=== PATIENT | male | born 1960 | race Caucasian/White ===

== ENCOUNTER → 2018-04-10 10:50 | Outpatient (CLI) | payer MEDICARE, MEDICAID, OTHER, SELFPAY ==
--- NOTE | 2018-04-10 | DI.RAD.S_ITS ---
PROCEDURE: XR CERVICAL SPINE 2V OR 3V INDICATIONS: 58 year-old male with neck pain and numbness for one week after surgery. TECHNIQUE: 3 view(s) of the cervical spine were acquired. COMPARISON: [facility], , CERVICAL SPINE 4 OR 5 VIEWS, 09/12/2017, 10:02. [facility], , CERVICAL SPINE 2 OR 3 VIEWS, 04/01/2009, 14:02. FINDINGS: Bones: No fractures or dislocations to the T1 level. The lateral masses of C1 appear intact on the odontoid view. Patient is status post C3-C7 discectomies with interbody fusion, as well as bilateral C2-T1 posterior fixation. Bone grafts do not yet appear incorporated. C7-T1 spondylolisthesis does not appear significantly changed. Surgical hardware appears intact. No suspicious bony lesions. Soft tissues: No new prevertebral soft tissue swelling. Postoperative prominence of the soft tissues at the C2 level appears unchanged. IMPRESSION: 1. No acute bony injuries of the cervical spine to the T1 level. 2. C3-C7 interbody fusion bone grafts do not yet appear incorporated. C2-T1 posterior fixation hardware appears intact. Dictated by: Emmanuel Bautista M.D. on 04/10/2018 at 12:14 Approved by: Emmanuel Bautista M.D. on 04/10/2018 at 12:18
== END ==
PROVIDERS: PCP Family Medicine; Visit Provider Orthopaedic Surgery
DX: M54.2 Cervicalgia (principal); Z98.1 Arthrodesis status
CPT/HCPCS: 72040

== ENCOUNTER 2018-07-30 05:35 | Inpatient (IN) | payer MEDICARE, MEDICAID, SELFPAY ==
[2018-07-30] VITALS (38 sets, daily range): BP systolic 67–158; BP diastolic 45–103; PULSE 64–110; RESP 16–18; TEMP 36.3–37.1; O2SAT 93–100; BMI 29.8
[2018-07-30] MEDS: PROPOFOL 1,000 MG/100 ML VIAL 2.994 MG IV (06:26)
--- NOTE | 2018-07-30 06:26 | PM.PROC.1 ---
Procedures Date/Time Date of procedure: 07/30/18 Time of procedure: 06:10 Intubation Time out performed: No Sedative: other (Propofol and Rocuronium given by ER Doc. See ER notes for dosing) Paralytic: rocuronium Laryngoscope: fiber optic video scope Assist device used: LMA ET tube size: 7 ET tube uncuffed: Yes Tube secured depth (cm): 26 Tube secured location: lips Tube placement confirmation: visualized tube passing through cords, equal breath sounds bilaterally and confirmation by capnometry Patient tolerated procedure: well Intubation complications: none Additional comments: Called in to assist with a failed intubation. Pt has angioedema secondary to ARUN inhibitor. He was already sedated and paralysed when I arrived. Attempted with Glidescope and a LoPro 3 blade but it was not long enough. LoPro 4 was the correct size for this situation. I was able to visualize cords well and advance a 7.0 ETT through cords. B/L breathsounds confirmed by ER team and CXR confirms the ETT in correct position at 26 cm at the lip. Care transferred back to the ER team.
--- NOTE | 2018-07-30 06:30 | DI.RAD.S_ITS ---
PROCEDURE: XR CHEST 1V INDICATIONS: intubation TECHNIQUE: One view of the chest was acquired. COMPARISON: [facility], CHEST 1 VIEW, 03/02/2017, 20:32. [facility], CHEST 1 VIEW, 08/17/2016, 18:45. [facility], CHEST 1 VIEW, 08/18/2008, 7:53. FINDINGS: Surgical changes and devices: Endotracheal tube in normal position. Lungs and pleura: No pleural effusions or pneumothorax. Lungs are edematous. Mediastinum: Mediastinal contours appear normal. Heart size is moderately enlarged. Bones and chest wall: No suspicious bony lesions. Overlying soft tissues appear unremarkable. IMPRESSION: Previous inspiratory volume, pulmonary edema pattern, moderate global cardiomegaly. Acute congestive heart failure is the likely cause. Endotracheal tube appears in normal position. Dictated by: Aidan Mccann M.D. on 07/30/2018 at 8:19 Approved by: Aidan Mccann M.D. on 07/30/2018 at 8:20
--- NOTE | 2018-07-30 06:31 | ED.ALLEREA ---
HPI - Allergic Reaction General Chief complaint: Allergic Reaction Stated complaint: Allergic Reaction Time Seen by Provider: 07/30/18 05:35 Source: patient and EMS Mode of arrival: EMS Limitations: no limitations History of Present Illness HPI narrative: Patient is a is 58-year-old male who presents with tongue swelling. He has been on lisinopril for a long time for his blood pressure. This evening he had some steak with garlic powder on it which was new for him he denies anything else new or out of the ordinary. He woke up this morning with an enlarged tongue swelling and pain. He was given epi IM and Benadryl 50 mg along with albuterol by EMS. He has not had improvement. He has a muffled voice but is currently maintaining his own airway. MD complaint: allergic reaction Symptoms: tongue swelling and hoarseness Previous Allergic Reaction History: angioedema Related Data Home Medications Medication Instructions Recorded Confirmed omeprazole 20 mg PO Q DAY #0 05/24/11 acetaminophen [Tylenol Extra 1,000 mg PO Q6HP PRN #0 02/17/17 Strength] hydroxyzine HCl 25 mg #0 03/02/17 methocarbamol 500 mg PO #0 03/02/17 aspirin 325 mg PO QDAY #0 03/12/17 acetaminophen [Acephen] 325 mg R #0 05/25/17 famotidine 20 mg #0 05/25/17 ibuprofen 200 mg PO #0 05/25/17 Previous Rx's Medication Instructions Recorded lisinopril 5 mg PO Q DAY 14 Days #0 tab 08/17/16 prednisone 20 mg PO SEE INSTRUCTIONS #12 tab 05/25/17 Allergies Allergy/AdvReac Type Severity Reaction Status Date / Time citalopram [CITALOPRAM] Allergy Unknown SEIZURES Unverified 01/24/18 11:49 hydrocodone [HYDROCODONE] Allergy Unknown N/V Unverified 01/24/18 11:49 Review of Systems Review of Systems All systems reviewed & are unremarkable except as noted in HPI and below Constitutional Denies chills, Denies fatigue and Denies fever(s) Eyes Denies change in vision, Denies eye discharge, Denies irritation and Denies loss of vision ENT Ears, Nose, Mouth, and Throat: Reports as per HPI Cardiovascular Denies chest pain, Denies irregular heart rhythm, Denies lightheadedness, Denies palpitations and Denies orthopnea Respiratory Reports as per HPI Gastrointestinal Gastrointestinal: Denies abdominal pain, Denies change in bowel habits, Denies diarrhea, Denies nausea and Denies vomiting Musculoskeletal Denies back pain, Denies muscle weakness, Denies numbness and Denies tingling Integumentary/Breasts Denies pruritus, Denies erythema, Denies rash and Denies wounds Neurologic Denies loss of vision, Denies numbness and Denies tingling Endocrine Denies fatigue and Denies palpitations [facility] Medical History Hypertension (Acute) Exam Initial Vital Signs Initial Vital Signs: Vital Signs Temperature 97.4 F L 07/30/18 05:40 Pulse Rate 104 H 07/30/18 05:40 Respiratory Rate 18 07/30/18 05:40 Blood Pressure 158/100 H 07/30/18 05:40 Pulse Oximetry 100 07/30/18 05:40 Const General: ill appearing HENMT Mouth: drooling, muffled voice and tongue abnormal (Significantly enlarged, swelling inferiorly of tongue. Minimal swelling of neck.) Eyes General: appearance normal, both eyes and all related structures Eyelids: eyelids normal Neck Neck: normal visual inspection, No trachea midline, supple, No anterior neck swelling and No tracheal deviation Chest Chest: normal inspection of the chest Resp Effort & Inspection: normal respiratory effort, not able to speak in complete sentences, respiratory distress and no retractions Auscultation: clear to auscultation bilaterally, no rales and no rhonchi Cardio Rate: regular rate Heart Sounds: S1 normal and S2 normal GI Palpation: soft, No firm and No tender Skin General: No erythema, No mottling and No other (Hives) Rashes: no rashes Neuro General: alert, awake and oriented x3 Cranial Nerves: CN's II-XI intact bilaterally Procedures Intubation Time out performed: Yes sedative: other (propofol) Mg Given: 120 paralytic: Rocuronium (120) Laryngoscope: fiber optic video scope ET Tube Size: 7 Intubation Complications: difficult intubation and hypoxia Additional Comments: Difficulty intubation. Patient's oxygen sats went down to 50%. LMA was placed bag oxygen level came up. He was suction. 2nd attempt unable to passed and get to through vocal cords, but cords visualized full-time Anesthesia at bedside to intubate-please see anesthesia note for complete intubation. Course Orders Ordered: ED Orders 07/30/18 05:50 B Type Natriuretic Peptide Stat Complete Blood Count AUTO DIFF Stat Comprehensive Metabolic Panel Urgent Troponin I Urgent 07/30/18 06:30 XR chest 1V Stat Sodium Chloride (Normal Saline 0.9%) 1,000 mls @ 150 mls/hr IV CONT MIGUEL Discontinued Medications Famotidine (Pepcid) 20 mg in 50 mls @ 200 mls/hr IV NOW ONE Stop: 07/30/18 06:42 Methylprednisolone (Solu-Medrol 125 Mg Vial) 125 mg IV NOW ONE Stop: 07/30/18 06:29 Vital Signs - 8 hr 07/30/18 05:40 Temperature 97.4 F L Pulse Rate 104 H Respiratory Rate 18 Blood Pressure 158/100 H Pulse Oximetry 100 MDM - Allergic Reaction Differential Diagnosis Differential diagnosis: Likely anaphylaxis, allergic reaction and angioedema Lab Data Attestation: I reviewed the patient's lab results. Result diagrams: 07/30/18 05:50 07/30/18 05:50 Lab Results 07/30/18 07/30/18 Range/Units 05:50 05:50 WBC 12.7 H (4.5-11.0) X10^3/uL RBC 5.43 (4.5-5.9) X10^6/uL Hgb 17.9 H (13.5-17.5) g/dL Hct 52.2 (41-53) % MCV 96.1 (80-100) fL MCH 32.9 (26-34) PG MCHC 34.2 (30-36) % RDW 13.9 (11.6-14.8) % Plt Count 191 (150-400) X10^3/uL Neut % (Auto) 59.0 (50-75) % Lymph % (Auto) 27.1 (25-40) % [place] % (Auto) 9.3 (3-14) % Eos % (Auto) 4.2 H (2-4) % Baso % (Auto) 0.4 (0-2) % Neut # (Auto) 7500 H (2033-0080) /uL Sodium 143 (137-145) mmol/L Potassium 3.7 (3.4-5.1) mmol/L Chloride 105 (98-107) mmol/L Carbon Dioxide 25 (22-32) mmol/L BUN 16 (9-20) mg/dL Creatinine 1.10 (0.66-1.25) mg/dL Estimated GFR > 60.0 (>60) mL/min BUN/Creatinine Ratio 14.5 (6-22) Glucose 121 H (70-100) mg/dL Calcium 8.8 (8.4-10.2) mg/dL Total Bilirubin 0.7 (0.2-1.3) mg/dL AST 37 (17-59) IU/L ALT 33 (21-72) IU/L Alkaline Phosphatase 82 (38-126) U/L Troponin I < 0.012 (0.01-0.034) ng/mL B-Natriuretic Peptide < 100.0 (<100) Total Protein 7.2 (6.3-8.2) g/dL Albumin 4.3 (3.5-5.0) g/dL Globulin 2.9 (1.7-4.1) g/dL Albumin/Globulin Ratio 1.5 (1.0-2.8) MDM Narrative Medical decision making narrative: Patient has an obvious enlarged tongue he is awake alert and able to talk some. Started needing to spit up his own saliva. This was shortly after he arrived. No significant relief with epinephrine or utero. It is likely angioedema from his lisinopril. He has no rash or other symptoms to suggest anaphylaxis. I discussed with him intubation and the reason for intubation. He was agreeable to it he did give us his daughter's phone number. [place] [phone] (I have called and spoken with her) Anesthesia was called prior to any attempt to intubation. [place] scope used from anesthesia. A failed attempt at intubation, successful oxygenation with LMA. Anesthesia at bedside with successful intubation. Dr. Nava updated patient's symptoms and test results. Patient will be going to the ICU. Critical Care Time Critical Care Time: Yes Total Critical Care Time: 60 Attestation: The patient satisfied the definition of criticality in that they had a high probability of imminent deterioration of their condtion. Critical care time includes time spent at the bedside, plus where appropriate: gathering information from family, EMS, old records, caregivers; interpretation of test results; and time spent discussing patient with other physicians Discharge Plan Departure Patient Disposition: Admitted As Inpatient Clinical Impression: Angioedema
[2018-07-30 06:44] LABS: Add Manual Diff / Slide Review NO; Basophils Percent Auto 0.4 % (0-2); Eosinophils Percent Auto 4.2 % (2-4); Hematocrit 52.2 % (41-53); Hemoglobin 17.9 g/dL (13.5-17.5); Lymphocytes Percent Auto 27.1 % (25-40); Mean Corpuscular HGB Conc 34.2 % (30-36); Mean Corpuscular Hemoglobin 32.9 PG (26-34); Mean Corpuscular Volume 96.1 fL (80-100); Monocytes Percent Auto 9.3 % (3-14); Neutrophils Absolute Auto 7500 /uL (3000-5900); Platelet Count 191 X10^3/uL (150-400); Red Blood Cell Count 5.43 X10^6/uL (4.5-5.9); Red Cell Distribution Width 13.9 % (11.6-14.8); White Blood Cell Count 12.7 X10^3/uL (4.5-11.0)
[2018-07-30 06:47] LABS: Alanine Aminotransferase 33 IU/L (21-72); Albumin 4.3 g/dL (3.5-5.0); Albumin Globulin Ratio 1.5 (1.0-2.8); Alkaline Phosphatase 82 U/L (38-126); Aspartate Aminotransferase 37 IU/L (17-59); BUN Creatinine Ratio 14.5 (6-22); Bilirubin Total 0.7 mg/dL (0.2-1.3); Blood Urea Nitrogen 16 mg/dL (9-20); Calcium 8.8 mg/dL (8.4-10.2); Carbon Dioxide 25 mmol/L (22-32); Chloride 105 mmol/L (98-107); Estimated Glomerular Filt Rate > 60.0 mL/min (>60); Globulin 2.9 g/dL (1.7-4.1); Glucose 121 mg/dL (70-100); HEMOLYSIS 21 (0-50); Potassium 3.7 mmol/L (3.4-5.1); Sodium 143 mmol/L (137-145); Total Protein 7.2 g/dL (6.3-8.2)
--- NOTE | 2018-07-30 06:48 | RT ---
CALLED TO ED TO ASSIST W/ RAPID INTUBATION. ARRIVED IN ED AT APPROX. 0550. ASSISTED ED DR. AND ANESTHESIOLOGIST W/ INTUBATION VIA PREP, SX, BAG/MASK VENTILATION, AND PLACEMENT ON VENT. PT WAS A DIFFICULT INTUBATION. MULTIPLE ATTEMPTS MADE. ANESTHESIOLOGIST SUCCESSFULLY INTUBATED VIA GLYDESCOPE AT APPROX. 0619 W/ #7 ETT. PLACEMENT CONFIRMED VIA AUSCULTATION, ETCO2 DETECTOR (POSITIVE COLOR CHANGE NOTED) AND CXR. ETT APPEARS BELOW CLAVICLES AND ABOVE AMALIA, IN GOOD POSITION.
[2018-07-30 06:58] LABS: B Type Natriuretic Peptide < 100.0 (<100)
[2018-07-30 06:59] LABS: Troponin I < 0.012 ng/mL (0.01-0.034)
[2018-07-30] MEDS: PROPOFOL 200 MG/20 ML VIAL 50 MG IV (07:22)
[2018-07-30] MEDS: HYDROMORPHONE 0.5 MG INJ 1 MG IV (07:30)
[2018-07-30] MEDS: LORazepam 2 MG/ML SYRINGE IV (07:36)
--- NOTE | 2018-07-30 07:39 | PC.NURSE ---
patient arrived by EMS with severe tongue swelling, difficulty swallowing and talking. patient was given 125mg of solumedrol. patient had no improvement and the decision was made to rapid sequence intubate. patient was given 120mg of propofol and 120mg of rocuronium. patient was a difficult airway. anesthesia was called to assist. estee wang was called. anesthesia intubated. patient started on a propofol drip. lopez placed. provider aware.
[2018-07-30] MEDS: FAMOTIDINE 20 MG/50 ML PIGGYBACK 200 MG IV (07:50)
[2018-07-30] MEDS: SODIUM CHLORIDE 0.9% 250 ML 500 ML IV ×2 (09:15→09:35)
--- NOTE | 2018-07-30 09:19 | PC.NURSE ---
714- At this time I came to the bedside of the patient and took a bedside report from Bruna JIMENEZ and Frances Hill. They had charted the entirety of the patient's ER stay on paper on [employer]. At this time I took over and will chart what I do from 719-ICU transfer in the computer. Everything prior to 719 was written in paper chart packet for referencing. I suctioned the patient and immediately found him to be awake and restless, he is restrained however responds to my questions with appropriate head nods and is gagging due to tube and excessive secretions. He indicates he feels better after suctioning and I immediately began increasing his sedation titration as well as requested a bolus of sedation form MD Mccormack.
[2018-07-30 09:20] LABS: HCO3 ABG 27 mmol/L (23-27); Oxygen Saturation ABG 97 % (95-100); PCO2 ABG 52.2 mmHg (35-45); PO2 ABG 96 mmHg (80-105); TCO2 ABG 29 mmol/L (23-27); pH ABG 7.33 (7.35-7.45)
--- NOTE | 2018-07-30 09:23 | PC.NURSE ---
)[id number] Patient is more relaxed after administration of multiple medications and multiple suctionings, however is still awake and responds to my questions. Will continue to increase propofol sedation. Dr. Tipton.
--- NOTE | 2018-07-30 09:26 | PC.NURSE ---
0815 At this time I attempted to insert a 14fr OG tube with no success. Airway is still too swollen. and I&C TECH's aware.
[2018-07-30] MEDS: SODIUM CHLORIDE 0.9% 1,000 ML 150 ML IV (09:30)
[2018-07-30] MEDS: PROPOFOL 1,000 MG/100 ML VIAL 23.95 MG IV ×2 (10:04→13:47)
--- NOTE | 2018-07-30 10:08 | PC.NURSE ---
Addendum entered by Dileep Palacios R.N. 07/30/18 14:39: Pt restless and moving extremities in bed. Attempting to talk around ETT. Facial grimacing noted. Provided paper and pen for pt to write with. He relates that he would like the ETT out. Explained purpose of ETT and treatment plan. Pt nods head yes that he understands. He then writes, Knock me out. Titrated propofol to 50 mcg/kg/min without any change in level of sedation. Called to MD and reported findings. Orders received and ativan given with only minor benefit to pt. Titrated propofol to 60 mcg/kg/min. Will monitor. Original Note: Addendum entered by Dileep Palacios R.N. 07/30/18 11:59: Rec'd call from Elmira Larkin and obtained verbal telephone consent witnessed by BARBARA cShwab. Original Note: Called placed to Elmira Larkin listed as next of kin in chart to obtain verbal phone consent for blood product administration. Left message to return phone call to ICU.
--- NOTE | 2018-07-30 10:40 | PC.ADMIT ---
867 Chandra Mujica Admission Note: The patient,Elroy Larkin,58 y/o, was given written information regarding hospital policies, unit procedures and contact persons. Patient's smoking status: . Vital Signs - 8 hr 07/30/18 05:40 07/30/18 07:15 07/30/18 07:30 Temperature 97.4 F L 98 F Pulse Rate 104 H 102 H 110 H Respiratory Rate 18 18 18 Blood Pressure 158/100 H Blood Pressure [Right Arm] 145/97 H 136/100 H Pulse Oximetry 100 98 98 07/30/18 07:45 07/30/18 08:00 07/30/18 08:15 Temperature Pulse Rate 105 H 105 H 103 H Respiratory Rate 18 18 18 Blood Pressure Blood Pressure [Right Arm] 115/87 119/86 103/73 Pulse Oximetry 97 98 97 07/30/18 08:20 07/30/18 08:30 07/30/18 09:02 Temperature 98.6 F Pulse Rate 102 H 102 H 95 H Respiratory Rate 18 18 18 Blood Pressure 123/79 74/47 L Blood Pressure [Right Arm] 123/79 Pulse Oximetry 98 98 96 07/30/18 09:30 07/30/18 09:45 07/30/18 10:00 Temperature Pulse Rate 84 79 77 Respiratory Rate 18 18 18 Blood Pressure 67/45 L 77/52 L 91/65 Blood Pressure [Right Arm] Pulse Oximetry 97 97 98 07/30/18 10:15 Temperature Pulse Rate 75 Respiratory Rate 18 Blood Pressure 93/64 Blood Pressure [Right Arm] Pulse Oximetry 98 Rec'd pt from ED at 0830. Transferred from stretcher to bed with staff assist x4. RT at bedside. Intubated to vent and sedated to RASS -2 on propofol at 70 mcg/kg/min. Pt nodding head yes/no appropriately and moving all extremities. Follows commands but bringing hands up to ETT despite redirection and administration of propofol. Soft-wrist restraints applied and order obtained from . Oriented pt to room/environment and plan of care. Placed SR x3 and turned pt to right. Admission assessment is incomplete r/t pt being non verbal and no family/SO available to assist with answering questions at this time.
[2018-07-30] MEDS: ENOXAPARIN 40 MG/0.4 ML SYRINGE SUBCUT (13:47)
[2018-07-30] MEDS: LORazepam 2 MG/ML SYRINGE 0.5 MG IV ×3 (14:29→23:29)
--- NOTE | 2018-07-30 16:48 | P.HP_ITS ---
History of Present Illness Date Patient Seen: 07/30/18 Time Patient Seen: 06:41 Chief complaint: Allergic Reaction Narrative: Chief complaint I can not breathe History of present illness [age] years of age male on lisinopril ARUN-inhibitor for a number of years presents with tongue swelling and oropharyngeal swelling. The emergency room setting patient is intubated due to a angioedema state. Patient has no previous history of angioedema. No history of angioedema and other family members. Patient History Medical History Hypertension (Acute) Comment: Past medical history includes Hypertension on ARUN-inhibitor No history of angioedema Other past medical history unavailable at this time Patient is sedated unable to answer questions no family members or friends available at this time Family & Social History Social History: At the present time the social situation is unattainable. Patient unable to answer questions due to his lethargy attended state on a ventilator no family or friends in in attendance at this time Social habits such as drinking or smoking not known Family history Information is unavailable at this time. Patient has a unable to answer question due to his sedated state on the ventilator No family or friends in attendance at this time available. Meds Home Medications Medication Instructions Recorded Confirmed Type omeprazole 20 mg PO Q DAY #0 05/24/11 History lisinopril 5 mg PO Q DAY 14 Days #0 tab 08/17/16 Rx acetaminophen [Tylenol Extra 1,000 mg PO Q6HP PRN #0 02/17/17 History Strength] hydroxyzine HCl 25 mg #0 03/02/17 History methocarbamol 500 mg PO #0 03/02/17 History aspirin 325 mg PO QDAY #0 03/12/17 History acetaminophen [Acephen] 325 mg R #0 05/25/17 History famotidine 20 mg #0 05/25/17 History ibuprofen 200 mg PO #0 05/25/17 History prednisone 20 mg PO SEE INSTRUCTIONS #12 tab 05/25/17 Rx Allergies Allergy/AdvReac Type Severity Reaction Status Date / Time lisinopril Allergy Severe Swelling Verified 07/30/18 10:36 of Lip/Tongue/Throat citalopram [CITALOPRAM] Allergy Unknown SEIZURES Unverified 01/24/18 11:49 hydrocodone [HYDROCODONE] Allergy Unknown N/V Unverified 01/24/18 11:49 Review of Systems Review of Systems Review of system is unobtainable at this time to the patient's lethargy state and on availability of family members or medical record availability Exam Vital Signs (past 8 hours): - 07/30/18 09:02 07/30/18 09:30 07/30/18 09:45 Temperature Pulse Rate 95 H 84 79 Respiratory Rate 18 18 18 Blood Pressure 74/47 L 67/45 L 77/52 L Pulse Oximetry 96 97 97 07/30/18 10:00 07/30/18 10:15 07/30/18 12:08 Temperature 98.8 F Pulse Rate 77 75 70 Respiratory Rate 18 18 18 Blood Pressure 91/65 93/64 109/75 Pulse Oximetry 98 98 07/30/18 12:15 07/30/18 12:30 07/30/18 13:20 Temperature 97.7 F 97.7 F 97.7 F Pulse Rate 68 67 70 Respiratory Rate 18 18 16 Blood Pressure 102/66 102/66 98/63 Pulse Oximetry 97 97 07/30/18 13:42 07/30/18 13:45 07/30/18 13:58 Temperature 97.8 F 97.8 F 97.9 F Pulse Rate 71 73 80 Respiratory Rate 16 16 16 Blood Pressure 110/71 109/71 114/71 Pulse Oximetry 96 96 07/30/18 15:02 Temperature 98.1 F Pulse Rate 72 Respiratory Rate 16 Blood Pressure 104/65 Pulse Oximetry Fraction of Inspired Oxygen 35 Oxygen Delivery Method Mechanical Ventilation Oxygen Flow Rate 35 Narrative Exam Narrative: General appearance sedated difficult to arouse on ventilator support Skin no rashes or lesions evident no dermatitis no findings to suggest that this angioedema is histamine or mast cell mediated Respiratory fairly clear on auscultation at this time Cardiovascular regular rate rhythm no murmurs+3 pulses to extremities GI soft nontender positive bowel sounds no pedal splenomegaly no bruits Musculoskeletal range of motion appears normal passively no clubbing noted cannot assess motor strength at this time Neurologic unable to assess appropriately at this time Lymph nodes no lymphadenopathy to neck or axilla Objective Labs Result Diagrams: 07/30/18 05:50 07/30/18 05:50 Labs: Laboratory Results - last 24 hr 07/30/18 07/30/18 07/30/18 05:50 05:50 08:50 WBC 12.7 H RBC 5.43 Hgb 17.9 H Hct 52.2 MCV 96.1 MCH 32.9 MCHC 34.2 RDW 13.9 Plt Count 191 Neut % (Auto) 59.0 Lymph % (Auto) 27.1 [place] % (Auto) 9.3 Eos % (Auto) 4.2 H Baso % (Auto) 0.4 Neut # (Auto) 7500 H ABG pH 7.33 L ABG pCO2 52.2 H ABG pO2 96 ABG HCO3 27 ABG Total CO2 29 H ABG O2 Saturation 97 ABG Base Excess 1.0 FiO2 0.50 Sodium 143 Potassium 3.7 Chloride 105 Carbon Dioxide 25 BUN 16 Creatinine 1.10 Estimated GFR > 60.0 BUN/Creatinine Ratio 14.5 Glucose 121 H Calcium 8.8 Total Bilirubin 0.7 AST 37 ALT 33 Alkaline Phosphatase 82 Troponin I < 0.012 B-Natriuretic Peptide < 100.0 Total Protein 7.2 Albumin 4.3 Globulin 2.9 Albumin/Globulin Ratio 1.5 Nasal Screen MRSA (PCR) Blood Type 07/30/18 07/30/18 09:00 10:00 WBC RBC Hgb Hct MCV MCH MCHC RDW Plt Count Neut % (Auto) Lymph % (Auto) [place] % (Auto) Eos % (Auto) Baso % (Auto) Neut # (Auto) ABG pH ABG pCO2 ABG pO2 ABG HCO3 ABG Total CO2 ABG O2 Saturation ABG Base Excess FiO2 Sodium Potassium Chloride Carbon Dioxide BUN Creatinine Estimated GFR BUN/Creatinine Ratio Glucose Calcium Total Bilirubin AST ALT Alkaline Phosphatase Troponin I B-Natriuretic Peptide Total Protein Albumin Globulin Albumin/Globulin Ratio Nasal Screen MRSA (PCR) Negative for mrsa Blood Type O Positive Assessment & Plan Plan: Assessment/Plan Narrative: Bradykinin mediated acute angioedema Very likely this is ARUN-inhibitor related angioedema There is no previous history of angioedema. No dermatitis noted to suggest mast cell mediated angioedema 2 units of FFP have been requested and given to the patient which is most appropriate for this form of angioedema C1 concentrate is not available Continue the Solu-Medrol at 40 mg IV q.12 No further ARUN-inhibitor medication Time Spent With Patient Time with patient: Greater than 35 minutes (65 min) Quality VTE Deep Vein Thrombosis/Pulmonary Embolism Present on Admission: No
[2018-07-30] MEDS: PROPOFOL 1,000 MG/100 ML VIAL 35.924 MG IV ×3 (16:51→22:30)
--- NOTE | 2018-07-30 18:53 | PC.NURSE ---
fanny note pt has swollen neck and tongue is mildly swollen. Tongue is dry. Bite block in place with ETT.
[2018-07-30] MEDS: SODIUM CHLORIDE 0.9% 1,000 ML 100 ML IV (21:51)
[2018-07-31] VITALS (32 sets, daily range): BP systolic 107–139; BP diastolic 61–94; PULSE 39–66; RESP 15–49; TEMP 36.1–37.1; O2SAT 92–97
--- NOTE | 2018-07-31 | DI.RAD.S_ITS ---
PROCEDURE: XR CHEST 1V INDICATIONS: ANGIOEDEMA TECHNIQUE: One view of the chest was acquired. COMPARISON: [facility], , XR CHEST 1V, 07/30/2018, 5:49. [facility], CR, CHEST 1 VIEW, 03/02/2017, 20:32. [facility], CR, CHEST 1 VIEW, 08/17/2016, 18:45. FINDINGS: Surgical changes and devices: Endotracheal tube positioning normal Lungs and pleura: No pleural effusions or pneumothorax. Lungs are abnormal with chronic mild interstitial prominence and possible superimposed mild pulmonary edema. Mediastinum: Mediastinal contours appear normal. Heart size is at the upper limits of normal. Bones and chest wall: No suspicious bony lesions. Overlying soft tissues appear unremarkable. IMPRESSION: Endotracheal tube positioning normal, chronic interstitial prominence with superimposed mild pulmonary edema but no significant cardiomegaly is found. Dictated by: Aidan Mccann M.D. on 07/31/2018 at 8:16 Approved by: Aidan Mccann M.D. on 07/31/2018 at 8:17
[2018-07-31] MEDS: HYDROMORPHONE 0.5 MG INJ 1 MG IV ×4 (00:14→23:03)
--- NOTE | 2018-07-31 00:32 | PC.NURSE ---
Patient restless and awake at change of shift, propofol gtt increased to 70-75mcg/min and 0.5mg IV Ativan given for agitation, order was obtained for IV Dilaudid, waiting for pharmacy to verify, patient's S.O. 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 FIO2 35% TV 600 PEEP 5 RR 16, SpO2 >93% ETCO2 29-32, see assessment notes and vital trends also. 0030-1mg IV Dilaudid given for FLACC pain of 7, propofol gtt titrated back to 60mcg/min, will monitor closely. S.O. Sasha staying in room.
[2018-07-31] MEDS: PROPOFOL 1,000 MG/100 ML VIAL 32.931 MG IV ×2 (01:17→04:52)
[2018-07-31 05:03] LABS: Add Manual Diff / Slide Review NO; Basophils Percent Auto 0.1 % (0-2); Hematocrit 43.9 % (41-53); Hemoglobin 15.3 g/dL (13.5-17.5); Lymphocytes Percent Auto 5.8 % (25-40); Mean Corpuscular HGB Conc 34.9 % (30-36); Mean Corpuscular Hemoglobin 33.1 PG (26-34); Monocytes Percent Auto 3.1 % (3-14); Neutrophils Absolute Auto 9900 /uL (3000-5900); Platelet Count 138 X10^3/uL (150-400); Red Blood Cell Count 4.62 X10^6/uL (4.5-5.9); Red Cell Distribution Width 13.6 % (11.6-14.8); White Blood Cell Count 10.9 X10^3/uL (4.5-11.0)
[2018-07-31 05:13] LABS: Alanine Aminotransferase 27 IU/L (21-72); Albumin 3.4 g/dL (3.5-5.0); Albumin Globulin Ratio 1.4 (1.0-2.8); Alkaline Phosphatase 64 U/L (38-126); Aspartate Aminotransferase 19 IU/L (17-59); BUN Creatinine Ratio 17.8 (6-22); Bilirubin Total 0.5 mg/dL (0.2-1.3); Blood Urea Nitrogen 16 mg/dL (9-20); Calcium 8.3 mg/dL (8.4-10.2); Carbon Dioxide 24 mmol/L (22-32); Chloride 109 mmol/L (98-107); Estimated Glomerular Filt Rate > 60.0 mL/min (>60); Globulin 2.5 g/dL (1.7-4.1); Glucose 132 mg/dL (70-100); HEMOLYSIS < 15 (0-50); Potassium 4.1 mmol/L (3.4-5.1); Sodium 140 mmol/L (137-145); Total Protein 5.9 g/dL (6.3-8.2)
[2018-07-31] MEDS: SODIUM CHLORIDE 0.9% 1,000 ML 100 ML IV ×2 (06:58→18:22)
[2018-07-31] MEDS: PROPOFOL 1,000 MG/100 ML VIAL 35.924 MG IV ×2 (06:58→10:15)
[2018-07-31] MEDS: ENOXAPARIN 40 MG/0.4 ML SYRINGE SUBCUT (09:06)
--- NOTE | 2018-07-31 09:18 | P.PN_ITS ---
Subjective Date Patient Seen: 07/31/18 Time Patient Seen: 09:19 Interval history: FOLLOW UP OF ACUTE RESPIRATORY FAILURE DUE TO ANGIOEDEMA Patient seen at bedside. Swelling seems to be improving but slower than anticipated rate. Becomes very agitated when sedation is weaned off. No overnight events. Exam Vital Signs (past 8 hours): - 07/31/18 02:00 07/31/18 03:00 07/31/18 04:00 Temperature 97.7 F Pulse Rate 53 L 53 L 54 L Respiratory Rate 16 16 16 Blood Pressure 108/65 109/72 110/62 Pulse Oximetry 92 93 95 07/31/18 05:00 07/31/18 06:00 07/31/18 07:00 Temperature 97.8 F 97.8 F 97 F L Pulse Rate 52 L 53 L 51 L Respiratory Rate 16 16 16 Blood Pressure 110/62 107/64 112/61 Pulse Oximetry 92 92 94 07/31/18 08:00 Temperature Pulse Rate 50 L Respiratory Rate 16 Blood Pressure 114/73 Pulse Oximetry 95 Fraction of Inspired Oxygen 35 Oxygen Delivery Method Mechanical Ventilation Oxygen Flow Rate 0 Narrative Exam Narrative: Gen: RASS -4, withdraws to painful stimuli HEENT: Pupils constricted but responsive BL. ET in place at 26cm Neck: No LAD, supple CV: RRR, no murmurs, no gallops Resp: Bronchial breath sounds GI: +BS, soft, nontender MSK: Withdraws extremities to painful stimuli Skin: No edema or bruising Objective Labs Result Diagrams: 07/31/18 04:45 07/31/18 04:45 Labs: Laboratory Results - last 24 hr 07/30/18 07/30/18 07/30/18 08:50 09:00 10:00 WBC RBC Hgb Hct MCV MCH MCHC RDW Plt Count Neut % (Auto) Lymph % (Auto) [place] % (Auto) Eos % (Auto) Baso % (Auto) Neut # (Auto) ABG pH 7.33 L ABG pCO2 52.2 H ABG pO2 96 ABG HCO3 27 ABG Total CO2 29 H ABG O2 Saturation 97 ABG Base Excess 1.0 FiO2 0.50 Sodium Potassium Chloride Carbon Dioxide BUN Creatinine Estimated GFR BUN/Creatinine Ratio Glucose Calcium Total Bilirubin AST ALT Alkaline Phosphatase Total Protein Albumin Globulin Albumin/Globulin Ratio Nasal Screen MRSA (PCR) Negative for mrsa Blood Type O Positive 07/31/18 07/31/18 04:45 04:45 WBC 10.9 RBC 4.62 Hgb 15.3 Hct 43.9 MCV 95.0 MCH 33.1 MCHC 34.9 RDW 13.6 Plt Count 138 L Neut % (Auto) 91.0 H D Lymph % (Auto) 5.8 L D [place] % (Auto) 3.1 Eos % (Auto) 0.0 L Baso % (Auto) 0.1 Neut # (Auto) 9900 H ABG pH ABG pCO2 ABG pO2 ABG HCO3 ABG Total CO2 ABG O2 Saturation ABG Base Excess FiO2 Sodium 140 Potassium 4.1 Chloride 109 H Carbon Dioxide 24 BUN 16 Creatinine 0.90 Estimated GFR > 60.0 BUN/Creatinine Ratio 17.8 Glucose 132 H Calcium 8.3 L Total Bilirubin 0.5 AST 19 ALT 27 Alkaline Phosphatase 64 Total Protein 5.9 L Albumin 3.4 L Globulin 2.5 Albumin/Globulin Ratio 1.4 Nasal Screen MRSA (PCR) Blood Type Assessment & Plan Plan: Assessment/Plan Narrative: 1. Acute Respiratory failure - Due to Angioedema from ACEI use - Slower than anticipated improvement noted - CXR repeat this morning reviewed: Lungs are abnormal with chronic mild interstitial prominence and possible superimposed mild pulmonary edema. It seems to be improved when compared to read of previous CXR - Patient is currently on Solumedrol 40mg BID...Will switch to 125mg IV Q6H. Will also Add on Benadryl 50mg IV Q12H and Famotidine 20mg IV Daily - Will monitor for improvement. Cuff leak test tomorrow morning and possible CPAP trial 2. HTN - BP Stable at this time - Continue to monitor and hold BP medications as patient is on heavy sedatives - Will avoid ACEI/ARB in the future Time spent examining and providing care to this patient: 25min Quality VTE Deep Vein Thrombosis/Pulmonary Embolism Present on Admission: No
[2018-07-31] MEDS: FAMOTIDINE 20 MG/50 ML PIGGYBACK 200 MG IV (09:26)
[2018-07-31] MEDS: methylPREDNISolone 125 MG/2 ML VIAL IV ×3 (09:26→20:39)
[2018-07-31] MEDS: diphenhydrAMINE 50 MG/ML VIAL IV ×2 (10:11→20:39)
[2018-07-31] MEDS: LORazepam 2 MG/ML SYRINGE 0.5 MG IV (13:29)
--- NOTE | 2018-07-31 13:30 | PC.NURSE ---
Addendum entered by Dileep Palacios R.N. 07/31/18 14:16: HR at 1320 was noted to be NSR 60-70s. Original Note: Titrated propofol to 30 mcg/kg/min r/t deep sedation and HR 40s. Pt noted to be sitting bolt upright at 1320 and was able to dislodge his r hand IV despite being in soft wrist restraints. Provided reorientation which did provide some anxiety relief to pt but still attempting to put feet out of bed. Increased propofol and administered PRN ativan with good effect. VSS. Will monitor.
[2018-07-31] MEDS: PROPOFOL 1,000 MG/100 ML VIAL 23.95 MG IV (14:31)
--- NOTE | 2018-07-31 17:06 | CM.DANOTE ---
Discharge Planning/Care Management DCP: assessment: case received, EMR reviewed and discussed in Team Rounds. Pt is a 58 year old male who admitted yesterday to care of hospitalist team. PCP: Dr. Elroy iDxon Payer: [employer]/medicaid Dr. Sandoval reports pt remain at this time on ventilator support and has been slow to recover thus far. Wean attempt tomorrow. P: DCP team will be following to meet with pt and/or family and assist with d/c issues and options as these unfold CM Discharge Assessment Start: 07/31/18 17:03 Freq: Status: Active Protocol: Document 07/31/18 17:03 ITV (Rec: 07/31/18 17:06 ITV [id number]) Discharge Planning Assessment History Provided By Medical Record Comment pt currently on ventilator support. Comment pending Review Status In Process Next Review Type Continued Stay Review
[2018-07-31] MEDS: PROPOFOL 1,000 MG/100 ML VIAL 29.937 MG IV ×2 (17:50→20:48)
[2018-07-31] MEDS: DEXTROSE 5% WATER 500 ML 21 ML IV (18:32)
[2018-08-01] VITALS (21 sets, daily range): BP systolic 125–172; BP diastolic 77–105; PULSE 37–83; RESP 16–31; TEMP 35.9–37.6; O2SAT 92–96
[2018-08-01] MEDS: methylPREDNISolone 125 MG/2 ML VIAL IV ×4 (02:06→20:39)
[2018-08-01] MEDS: PROPOFOL 1,000 MG/100 ML VIAL 17.962 MG IV (02:06)
[2018-08-01] MEDS: SODIUM CHLORIDE 0.9% 1,000 ML 100 ML IV ×2 (03:55→13:54)
[2018-08-01] MEDS: HYDROMORPHONE 0.5 MG INJ 1 MG IV ×2 (04:25→19:00)
[2018-08-01 05:12] LABS: Add Manual Diff / Slide Review NO; Basophils Percent Auto 0.1 % (0-2); Hematocrit 49.6 % (41-53); Hemoglobin 16.9 g/dL (13.5-17.5); Lymphocytes Percent Auto 6.3 % (25-40); Mean Corpuscular HGB Conc 34.1 % (30-36); Mean Corpuscular Hemoglobin 32.9 PG (26-34); Mean Corpuscular Volume 96.5 fL (80-100); Monocytes Percent Auto 3.7 % (3-14); Neutrophils Absolute Auto 9700 /uL (3000-5900); Neutrophils Percent Auto 89.9 % (50-75); Platelet Count 127 X10^3/uL (150-400); Red Blood Cell Count 5.14 X10^6/uL (4.5-5.9); Red Cell Distribution Width 13.9 % (11.6-14.8); White Blood Cell Count 10.8 X10^3/uL (4.5-11.0)
[2018-08-01 05:19] LABS: Alanine Aminotransferase 27 IU/L (21-72); Albumin 3.7 g/dL (3.5-5.0); Albumin Globulin Ratio 1.3 (1.0-2.8); Alkaline Phosphatase 61 U/L (38-126); Aspartate Aminotransferase 28 IU/L (17-59); BUN Creatinine Ratio 22.5 (6-22); Bilirubin Total 0.6 mg/dL (0.2-1.3); Blood Urea Nitrogen 18 mg/dL (9-20); Calcium 8.5 mg/dL (8.4-10.2); Carbon Dioxide 18 mmol/L (22-32); Chloride 111 mmol/L (98-107); Estimated Glomerular Filt Rate > 60.0 mL/min (>60); Globulin 2.9 g/dL (1.7-4.1); Glucose 146 mg/dL (70-100); Sodium 141 mmol/L (137-145); Total Protein 6.6 g/dL (6.3-8.2)
[2018-08-01 05:29] LABS: HEMOLYSIS 63 (0-50)
[2018-08-01 05:30] LABS: Potassium 4.4 mmol/L (3.4-5.1)
[2018-08-01] MEDS: PROPOFOL 1,000 MG/100 ML VIAL 29.937 MG IV (05:44)
--- NOTE | 2018-08-01 06:00 | DI.RAD.S_ITS ---
PROCEDURE: XR CHEST 1V INDICATIONS: f/u to assess for improvement; intubated TECHNIQUE: One view of the chest was acquired. COMPARISON: [facility], CR, XR CHEST 1V, 07/31/2018, 7:59. FINDINGS: Surgical changes and devices: Endotracheal tube is seen with the tip projecting approximately 6 cm above the eliceo. Partially visualized cervical spine fixation hardware. Lungs and pleura: No pleural effusions or pneumothorax. Increasing retrocardiac consolidation since yesterday. There is also patchy bibasilar opacities, grossly unchanged and blunting of the left costophrenic angle.. Mediastinum: Mediastinal contours appear normal. Heart size is normal. Bones and chest wall: No suspicious bony lesions. Overlying soft tissues appear unremarkable. IMPRESSION: Worsening retrocardiac consolidation since yesterday. Please correlate clinically. Support equipment as above. Dictated by: Dileep Weaver M.D. on 08/01/2018 at 9:28 Approved by: Dileep Weaver M.D. on 08/01/2018 at 9:29
--- NOTE | 2018-08-01 06:11 | PC.NURSE ---
Patient remains on ventilator, FIO2 at 40% throughout night until 0400 when he sat up anxious with coughing episode attempting to reach for ETT, oral care and sx thick white sputum, propofol increased from 30mcg/min to 50mcg/min and 1mg IV Dilaudid when patient nodded head that he was in pain. FIO2 up to 50% to keep sats >92%. SB rate 40s, riding vent with RR rate of 16, BP stable, see vital trends. Tolerated CXR this am.
--- NOTE | 2018-08-01 08:28 | P.PN_ITS ---
Subjective Date Patient Seen: 08/01/18 Time Patient Seen: 08:23 Interval history: FOLLOW UP OF ACUTE RESPIRATORY FAILURE DUE TO ANGIOEDEMA Patient seen at bedside. His swelling has dramatically decreased. On ventilator , saturating well. No overnight events. Exam Vital Signs (past 8 hours): - 08/01/18 01:01 08/01/18 02:00 08/01/18 03:04 Temperature Pulse Rate 37 L 39 L 40 L Respiratory Rate 16 16 16 Blood Pressure 130/85 134/82 133/85 Pulse Oximetry 94 94 94 08/01/18 04:00 08/01/18 04:04 08/01/18 04:30 Temperature 97.2 F L Pulse Rate 40 L 45 L Respiratory Rate 16 16 Blood Pressure 136/85 Pulse Oximetry 95 92 08/01/18 05:11 08/01/18 06:07 Temperature Pulse Rate 43 L 41 L Respiratory Rate 16 16 Blood Pressure 127/88 125/77 Pulse Oximetry 92 93 Fraction of Inspired Oxygen 50 Oxygen Delivery Method Mechanical Ventilation Oxygen Flow Rate 94 Narrative Exam Narrative: Gen: RASS -3-4, withdraws to painful stimuli HEENT: Pupils constricted but responsive BL. ET in place at 26cm. Significantly decreased swelling in lips and tongue as opposed to day before Neck: No LAD, supple CV: RRR, no murmurs, no gallops Resp: Bronchial breath sounds GI: +BS, soft, nontender MSK: Withdraws extremities to painful stimuli Skin: No edema or bruising Objective Labs Result Diagrams: 08/01/18 04:49 08/01/18 04:49 Labs: Laboratory Results - last 24 hr 08/01/18 08/01/18 04:49 04:49 WBC 10.8 RBC 5.14 Hgb 16.9 Hct 49.6 MCV 96.5 MCH 32.9 MCHC 34.1 RDW 13.9 Plt Count 127 L Neut % (Auto) 89.9 H Lymph % (Auto) 6.3 L [place] % (Auto) 3.7 Eos % (Auto) 0.0 L Baso % (Auto) 0.1 Neut # (Auto) 9700 H Sodium 141 Potassium 4.4 Chloride 111 H Carbon Dioxide 18 L BUN 18 Creatinine 0.80 Estimated GFR > 60.0 BUN/Creatinine Ratio 22.5 H Glucose 146 H Calcium 8.5 Total Bilirubin 0.6 AST 28 ALT 27 Alkaline Phosphatase 61 Total Protein 6.6 Albumin 3.7 Globulin 2.9 Albumin/Globulin Ratio 1.3 Assessment & Plan Plan: Assessment/Plan Narrative: 1. Acute Respiratory failure - Due to Angioedema from ACEI use - Significant improvement since yesterday after increase of Steroids and addition of benadryl/Famotidine - CXR repeat this morning repeated, pending results - Will check cuff leak today and attempt VLT. If RSBI is <105, will attempt extubation with anasthesia at bedside - Will monitor for improvement. Cuff leak test tomorrow morning and possible CPAP trial 2. HTN - BP Stable at this time - Continue to monitor and hold BP medications as patient is on heavy sedatives - Will avoid ACEI/ARB in the future Time spent examining and providing care to this patient: 20min Quality VTE Deep Vein Thrombosis/Pulmonary Embolism Present on Admission: No
[2018-08-01] MEDS: ENOXAPARIN 40 MG/0.4 ML SYRINGE SUBCUT (08:39)
[2018-08-01] MEDS: diphenhydrAMINE 50 MG/ML VIAL IV ×2 (08:39→20:39)
[2018-08-01] MEDS: FAMOTIDINE 20 MG/50 ML PIGGYBACK 200 MG IV (08:41)
[2018-08-01] MEDS: PROPOFOL 1,000 MG/100 ML VIAL 23.95 MG IV (10:08)
--- NOTE | 2018-08-01 10:51 | PC.NURSE ---
Addendum entered by Dileep Palacios R.N. 08/01/18 13:31: Pt anxious, tremulous, c/o headache, having tactile disturbance. Pt states he has 2 man-sized shots of whiskey every day. Called to . Reported assessment findings. Orders received for CIWA protocol with IV ativan. Will monitor. Original Note: Addendum entered by Dileep Palacios R.N. 08/01/18 11:56: 1115- RT and anesthesia at bedside. Reviewed RSBI and toleration of CPAP trial. Deflated cuff with audible air flow around ETT. Pt awake and nodding head yes/no to simple questions. Dr. Nolasco verbally ordered to extubate. Pt tolerated well. Applied 5L NC for SPO2 93%. Strong cough with creamy, yellow sputum expectorated and suctioned from mouth. Pt is talking with clear speech and asking appropriate questions regarding situation. Reviewed situation, plan of care. Educated to call light and placed in easy reach. 1130- Called to Dr. Sandoval. Updated on extubation and assessment of pt. Reported elevated BP. Orders received for labetolol. 1155- Called to daughterElmira, per pt request and update given. Original Note: Propofol weaned to off and pt waking up and attempting to make needs known. Difficulty with maintaining eyes open but moving all extremities and nodding head yes/no to simple questions seemingly appropriately. RT to bedside. Performed cuff test. Noted airflow around ETT. Reinflated cuff and switched pt to CPAP trial at 1040. Pt frequently coughing and requiring ETT suction with moderate amount of creamy, yellow secretions. Reality orientation provided. Pt currently sitting up attempting to write with pen on paper. HR 78 RR 22 BP 150/90 SPO2 94% on CPAP 30% FIO2 PEEP 5.
--- NOTE | 2018-08-01 11:26 | CM.DPC ---
DCP Cont: Called and spoke to daughter, Elmira, for baseline information on patient. Patient is being extubated now. Stated that he is disabled, but independent at home. Stated that he does not go to see a doctor, unless he is very ill. Lives in [place] with daughter. P: DCP to continue to assess and follow closely for any resources that patient may need. Heidi Myles RN/Supervisor [employer]
[2018-08-01] MEDS: LABETALOL 20 MG/4 ML SYRINGE 10 MG IV ×2 (11:48→16:13)
[2018-08-01] MEDS: LORazepam 2 MG/ML SYRINGE 0.5 MG IV ×3 (13:11→19:00)
--- NOTE | 2018-08-01 15:15 | SLP.IPNOTE ---
Order received. TELECOMMUNICATIONS LINESWORKER coordinated with nursing. Swallow evaluation to be completed tomorrow due to patient's extubation today.
[2018-08-02] VITALS (9 sets, daily range): BP systolic 133–153; BP diastolic 78–94; PULSE 53–76; RESP 15–26; TEMP 36.4–37.1; O2SAT 92–95
[2018-08-02] MEDS: SODIUM CHLORIDE 0.9% 1,000 ML 100 ML IV (00:07)
[2018-08-02] MEDS: HYDROMORPHONE 0.5 MG INJ 1 MG IV ×2 (00:08→04:14)
[2018-08-02] MEDS: LORazepam 2 MG/ML SYRINGE IV ×2 (00:08→04:13)
[2018-08-02] MEDS: methylPREDNISolone 125 MG/2 ML VIAL IV ×3 (03:19→21:09)
[2018-08-02 05:18] LABS: Add Manual Diff / Slide Review NO; Basophils Percent Auto 0.1 % (0-2); Hematocrit 47.9 % (41-53); Hemoglobin 16.2 g/dL (13.5-17.5); Lymphocytes Percent Auto 2.7 % (25-40); Mean Corpuscular HGB Conc 33.9 % (30-36); Mean Corpuscular Hemoglobin 32.6 PG (26-34); Mean Corpuscular Volume 96.3 fL (80-100); Monocytes Percent Auto 3.9 % (3-14); Neutrophils Absolute Auto 12300 /uL (3000-5900); Neutrophils Percent Auto 93.3 % (50-75); Platelet Count 138 X10^3/uL (150-400); Red Blood Cell Count 4.97 X10^6/uL (4.5-5.9); Red Cell Distribution Width 13.5 % (11.6-14.8); White Blood Cell Count 13.2 X10^3/uL (4.5-11.0)
[2018-08-02 05:27] LABS: Alanine Aminotransferase 46 IU/L (21-72); Albumin 3.6 g/dL (3.5-5.0); Albumin Globulin Ratio 1.3 (1.0-2.8); Alkaline Phosphatase 61 U/L (38-126); Aspartate Aminotransferase 37 IU/L (17-59); BUN Creatinine Ratio 26.3 (6-22); Bilirubin Total 0.7 mg/dL (0.2-1.3); Blood Urea Nitrogen 21 mg/dL (9-20); Calcium 8.2 mg/dL (8.4-10.2); Carbon Dioxide 25 mmol/L (22-32); Chloride 111 mmol/L (98-107); Estimated Glomerular Filt Rate > 60.0 mL/min (>60); Globulin 2.7 g/dL (1.7-4.1); Glucose 131 mg/dL (70-100); HEMOLYSIS < 15 (0-50); Potassium 3.9 mmol/L (3.4-5.1); Sodium 146 mmol/L (137-145); Total Protein 6.3 g/dL (6.3-8.2)
--- NOTE | 2018-08-02 09:15 | CM.DPC ---
DCP Cont: Met with patient briefly, was extubated yesterday. Alert and oriented, conversive. Is working with speech therapy as well. Patient's goal is to return home when he is stable. P: DCP to continue to follow closely, and offer any resources that patient may need at discharge. Heidi Myles RN/Quotation Checker
--- NOTE | 2018-08-02 09:20 | PM.PN.1 ---
Subjective Date Patient Seen: 08/02/18 Time Patient Seen: 09:20 Interval history: FOLLOW UP OF ACUTE RESPIRATORY FAILURE DUE TO ANGIOEDEMA Patient seen at bedside. He was extubated yesterday with no complications. Currently on NC O2 with good saturations. Patient did become mildly agitated in the evening and stated he is a chronic alcohol drinker. He was placed on CIWA protocol and received 2 doses of ativan overnight. Still protecting his airways. This morning passed bedside swallow with the nurse and was able to ambulate with a walker. Exam Vital Signs (past 8 hours): - 08/02/18 04:00 08/02/18 07:25 08/02/18 07:32 Temperature 98.0 F 97.8 F Pulse Rate 70 58 L Respiratory Rate 26 H 18 Blood Pressure 138/84 150/88 H Pulse Oximetry 95 95 93 08/02/18 07:56 Temperature Pulse Rate Respiratory Rate Blood Pressure Pulse Oximetry 92 Fraction of Inspired Oxygen 50 Oxygen Delivery Method Room Air Oxygen Flow Rate 0 Narrative Exam Narrative: Gen: NAD, AAOx3 HEENT: PERRLA BL. No swelling noted Neck: No LAD, supple CV: RRR, no murmurs, no gallops Resp: CTA BL, no wheezing GI: +BS, soft, nontender MSK: Moves all extremities BL Back: Vertical cervical incision scar, healed Skin: No edema. R anticubital bruising Objective Labs Result Diagrams: 08/02/18 04:42 08/02/18 04:42 Labs: Laboratory Results - last 24 hr 08/02/18 08/02/18 04:42 04:42 WBC 13.2 H RBC 4.97 Hgb 16.2 Hct 47.9 MCV 96.3 MCH 32.6 MCHC 33.9 RDW 13.5 Plt Count 138 L Neut % (Auto) 93.3 H Lymph % (Auto) 2.7 L [place] % (Auto) 3.9 Eos % (Auto) 0.0 L Baso % (Auto) 0.1 Neut # (Auto) 82843 H Sodium 146 H Potassium 3.9 Chloride 111 H Carbon Dioxide 25 BUN 21 H Creatinine 0.80 Estimated GFR > 60.0 BUN/Creatinine Ratio 26.3 H Glucose 131 H Calcium 8.2 L Total Bilirubin 0.7 AST 37 ALT 46 Alkaline Phosphatase 61 Total Protein 6.3 Albumin 3.6 Globulin 2.7 Albumin/Globulin Ratio 1.3 Assessment & Plan Plan: Assessment/Plan Narrative: 1. Acute Respiratory failure - Due to Angioedema from ACEI use - Resolving - Patient is now extubated - Will start tapering steroids - CXR showed retrocardiac consolidation but no clinical features of PNA (WBC increased from steroids). Continue to monitor for now - PT/OT/Speech pending 2. HTN - BP was slightly elevated and patient received labetalol - Will start on amlodipine 10mg Daily - Will avoid ACEI/ARB in the future 3. Alcohol abuse with withdrawals - patient states he drinks daily for chronic pain control - Placed on CIWA protocol, doing well 4. Hypernatremia - Na 146 - Will stop IVF and repeat Na levels in 6 hrs Time spent examining and providing care to this patient: 20min Quality VTE Deep Vein Thrombosis/Pulmonary Embolism Present on Admission: No
[2018-08-02] MEDS: ENOXAPARIN 40 MG/0.4 ML SYRINGE SUBCUT (10:42)
[2018-08-02] MEDS: FAMOTIDINE 20 MG/50 ML PIGGYBACK 200 MG IV (10:42)
[2018-08-02] MEDS: AMLODIPINE 5 MG TABLET 10 MG PO (10:43)
[2018-08-02] MEDS: diphenhydrAMINE 50 MG/ML VIAL IV ×2 (10:45→21:09)
--- NOTE | 2018-08-02 10:51 | ST.IPIE ---
Care Team Visit Care Team Role Provider Type Elroy Dixon MD Family Provider Non-Staff Primary Care Provider Specialty: Family Practice Address: [address] , [place], [address] Email: Mayra Mccormack DO Emergency Provider Physician Specialty: Emergency Medicine Address: [address] [place] [address], [id number] Email: Kin Nava MD Admit Provider Physician Attending Provider Specialty: Internal Medicine Address: [address] [place] [address], [id number] Email: Current Diagnoses Angioneurotic edema, initial encounter (07/30/18) Past Medical History (Last Updated 07/30/18 @ 07:17 by Mayra Mccormack DO) Hypertension (Acute Medical) ST IP Initial Evaulation Report [employer]PER[employer] Clinical Swallow Evaluation Start: 08/02/18 10:41 Freq: Status: Active Protocol: Document 08/02/18 10:41 [facility] (Rec: 08/02/18 10:51 [facility] [id number]) Clinical Swallow Evaluation Session Time Visit Start Time 10:15 Visit Stop Time 10:35 Total Visit Minutes [address] Sandoval Reason for Referral Angioedema; Extubation Setting Assessment Location Acute Care Visit Type Note Type Initial Evaluation Next Note Type Next Note Type Discharge Summary Patient Information Identification Type Name Date of Other History Patient is a 58 year old male who came to [facility] with tongue swelling and oropharyngela swelling. He was intubated in the emergency room due to angioedema state. He had no previous history of angioedema. He was intubated on 07/30/18 and extubated on 08/01/18. A clinical swallow evaluation was requested by Dr Sandoval to evaluate the safety and function of his swallowing following extubation. Subjective Observations Patient awake and alert, sitting up in chair. Very hungry and eager to begin eating. Passed nursing swallow screen. Clinical swallow evaluation requested by . Alert and oriented to time, place, situation. Indicated mild pain in his mouth, but resolved with eating and drinking. Evaluation Liquids Trialed Thin Solids Trialed Puree Dysphagia Advanced Regular Administration Type Cup Single Sip Straw Self-Feeding Oral Impairment WNL Oral Strategies Upright at 90 degrees Oral Phase Comments No oral impairment Pharyngeal Impairment WNL Pharyngeal Phase Comments No pharyngeal impairment Findings Dysphagia Type No dysphagia Rehabilitation Potential Excellent Impressions No oropharyngeal dysphagia. Patient independent in all PO trials. Able to safely tolerate thin liquids via cup and straw (single and consecutive sips), with puree textures, dysphagia advanced textures and soft sandwich. No oral residue, no difficulty with mastication, no difficulty with swallow initiation, no cough or throat clear, no change in vocal residue. Patient reported that he had ACDF surgery last year , but had no difficulties swallowing after the surgery. No overt s/s of aspiration or dysphagia. No impairment observed. RECOMMEND: Upgrade diet from NPO to thin liquids with regular textures. Medication to be administered as tolerated. Position upright for all intake. No further speech therapy warranted at this time. Please reconsult if needed. D/C patient. Diet Recommendations Liquids Order Thin Diet Order Regular Medication Recommendations As Tolerated Additional Dietary Needs Encourage to Self-Feed Aspiration Precautions Recommended Precautions Upright at 90 Degrees Frequent Rest Periods Small Bites/Sips Treatment Plan Placement Recommendations after Home Discharge Appropriate for Therapy No Therapy Recommendations No therapy needed at this time . Please reconsult if warranted. [employer]PER[employer] Follow Up As needed.
--- NOTE | 2018-08-02 14:28 | PC.NURSE ---
PT MADE FLOOR CARE NO TELE AND SALINE LOCKED POST SWALLOW EVAL THAT HE PASSED WITHOUT DIFFICULTY- AMBULATED AND SHOWERED - REMAINS WEAK BUT IMPROVING - NO LORAZ GIVEN THIS SHIFT AND KIM REMOVED THIS SHIFT
--- NOTE | 2018-08-02 14:54 | OT.IP.EVAL ---
Current Diagnoses Angioneurotic edema, initial encounter (07/30/18) Past Medical History (Last Updated 07/30/18 @ 07:17 by Mayra Mccormack DO) Hypertension (Acute) Occupational Therapy Inpatient Evaluation/Re-Eval M1 PT/OT-IP Prior Functional Status Start: 08/02/18 15:55 Freq: NEEDED Status: Active Protocol: Document 08/02/18 14:54 PJM (Rec: 08/02/18 16:19 PJM [id number]) Medical Review Prior Functional Status Medical History Reviewed Yes Diet/Fluid Consistency Regular Communication WNL Mobility and Gait Pt ambulated without a device. Activities of Daily Living and IADL's Pt lives alone and is independent with all self care , IADLS except driving. Pt states he prefers not to drive due to chronic lightheadedness for past 2 yrs. Prior Functional Level (Other details) Pt states friends or neighbors provide transport PRN. Social History Living Arrangements House Number of Floors (Floors) Two Floors Number of Stairs To Enter/Railing? 8 Home Environment High Toilet Tub/Shower Home Equipment Hand Held Shower Grab Bars Near Toilet Grab Bars In Shower Employment Status Unemployed Additional Social History Comment Pt states he is on disability for chronic neck and back problems. He has a FWW, cane , tub bench from caring for his father, but was not using any of these items. Pt takes bottom of tub bath. Laundry is located in lower level. Pt states he has girlfriend who lives 120 miles away and he sees her on some weekends. M2 OT-IP Current Condition Start: 08/02/18 15:55 Freq: Status: Active Protocol: Document 08/02/18 14:54 PJM (Rec: 08/02/18 16:19 PJM [id number]) Occupational Therapy Current Condition Current Condition Evaluation Date 08/02/18 Treatment Diagnosis decreased mobility/self care s /p intubation for allergic reaction to med Diagnosis Onset Date 07/30/18 Post Operative Precautions Other Precautions fall risk, mildly impulsive M3 OT- IP Subjective and Pain Start: 08/02/18 15:55 Freq: Status: Active Protocol: Document 08/02/18 14:54 PJM (Rec: 08/02/18 16:19 PJM [id number]) OT- Subjective Occupational Therapy Visit Type Type Initial Evaluation Visit Start Time 14:15 Visit Stop Time 14:54 Total Visit Minutes 39 Occupational Therapy Visit Comments Patient Comments I can get my neighbors sot help me when I go home. Patient/Caregiver Goals to go home and be independent again OT Pain Assessment Pain When Pain Assessed After Treatment Pain Present Pain Present Pain Reported Location Generalized Intensity 6 Scale Used low back and neck pain Description Chronic M4 OT- IP ADL's Start: 08/02/18 15:55 Freq: Status: Active Protocol: Document 08/02/18 14:54 PJ (Rec: 08/02/18 16:19 [facility] [id number]) OT [id number] General Evaluation Self-Feeding Ability Independent OT ADL-Grooming General Evaluation Grooming Ability Independent Comments OT Grooming Comments standing at sink to wash hands OT ADL-Oral Care Comments Oral Care Comments did not occur this session; pt completed prior to session OT ADL-Dressing General Eval Upper Body Dressing Ability Independent Lower Body Dressing Ability Independent Areas Needing Assistance Underpants/Brief Socks OT ADL-Toileting General Evaluation Toileting Ability Independent OT ADL-Bathing Bathing Type Bathing Type Shower General Evaluation Bathing Ability Standby Assistance Areas Needing Assistance Retrieving/Setting Up Items Devices Bathing Equipment Shower Chair without Arms Comments OT Bathing Comments Per RN, pt was indep bathing self once seated on shower seat in walk in shower stall. Educated pt to use tub seat at home until endurance improves . He normally takes bottom of tub bath. M5 OT- IP IADL's Start: 08/02/18 15:55 Freq: Status: Active Protocol: Document 08/02/18 14:54 PJM (Rec: 08/02/18 16:19 [facility] [id number]) OT-Instrumental Activities of Daily Living Deficits IADL Deficits Identified Deficits Home Safety Awareness Awareness of Need for Assistance at Home Decreased Awareness Ability to Problem Solve Emergency Able to Problem Solve Situations Medication Management Medication Management No Deficits Identified Money Management Money Management No Deficits Identified Meal Preparation Meal Preparation Comments Pt has decreased activity tolerance at present and recommend assist with grocery shopping. 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 Pt states friends can assist PRN. Driving Driving Caregiver Provides Assist Driving Comments pt usually has friends assist with driving M6 OT- IP Functional Cognition Start: 08/02/18 15:55 Freq: Status: Active Protocol: Document 08/02/18 14:54 PJM (Rec: 08/02/18 16:19 PJ [id number]) Cognitive Factors Limiting Selfcare Function Cognitive Ability Level of Alertness Alert Patient Orientation Name Age Birthday Month Date Year Day of Week Place Situation Attention Span Ability Capable of Focused Attention Capable of Sustained Attention Ability to Follow Commands Able to Follow One Step Commands Safety Awareness Underestimates Need for Assistance Problem Solving Ability Needs Assist to Identify Solutions Cognitive Comments Cognitive Assessment Comments Pt appears to be at cognitive baseline but does underestimate need for assist with associate spa director at home while he regains endurance. OT- Vision and Hearing OT- Hearing Assessment OT- Hearing Assessment WFL OT- Vision Assessment Vision Assessment Comments Pt does not wear glasses. M7 OT- IP Mobility and Balance Start: 08/02/18 15:55 Freq: Status: Active Protocol: Document 08/02/18 14:54 PJM (Rec: 08/02/18 16:19 PJ [id number]) OT- Bed Mobility Assessment Rolling Type of Rolling Roll to Left Level of Assistance Independent Supine to Sit Supine to Sit Assist Independent Sit to Supine Sit to Supine Assist Independent Scooting Scooting to Edge of Bed Independent OT-Transfer Assessment Sit to and From Stand Sit to and from Stand Standby Assistance Transfers Transfer Ability Standby Assistance Technique Transfer Destination Bed Toilet Transfer Technique Stand Step Pivot Devices Transfer Assistive Devices None OT- Gait Assessment Gait Gait Assistance Required: Standby Assistance Distance (Feet) 30 Assistive Devices Assistive Device None Comments Gait Ability Comments Pt up out of bed and ambulated to bathroom with SBA without a device. Mildly unsteady on turns but no loss of balance noted. Tends to move quickly. OT- Balance Assessment Sitting Balance and Reactions Static Sitting Balance Ability Good Dynamic Sitting Balance Ability Good Standing Balance and Reactions Static Standing Balance Ability Good Dynamic Standing Balance Ability Good M8 OT- IP Objective Assessments Start: 08/02/18 15:55 Freq: Status: Active Protocol: Document 08/02/18 14:54 PJM (Rec: 08/02/18 16:19 [facility] [id number]) OT Gross Range of Motion Upper Extremity Range of Motion Assessment Within Functional Limits OT Strength Upper Extremity Strength Assessment Within Functional Limits Hand Media Traffic Manager Strength Hand Dominance Right OT- Coordination Assessment Comments Coordination Comments BUE WFL OT-Muscle Tone Assessment Muscle Tone WNL Yes OT Sensation Assessment Comments Summary Comments Pt denies BUE sensory deficits . Edema Edema Present Edema Comments B ankles/feet M9 OT- IP Assessment and Plan Start: 08/02/18 15:55 Freq: Status: Active Protocol: Document 08/02/18 14:54 PJM (Rec: 08/02/18 16:19 PJM [id number]) OT Summary Assessment and Plan Potential Rehabilitation Potential Excellent Analytic Complexity at Evaluation Low Summary Progress Towards Goals Safe For Discharge Goals Met Assessment Summary Low complexity OT assessment completed. Pt is SBA with functional mobility in room with PT consult still pending. Pt independent with self care and has necessary bathroom safety equipment at home. Provided education re: energy conservation/pacing. Anticipate pt will return home when medically stable and clears P.T. Recommend pt use tub seat and avoid bottom of tub bathing until endurance/ strength back to baseline. Pt would also benefit from assist with IADLS when he first returns home, including help with basement laundry and grocery shopping. He states he has friends/neighbors who can assist with this. No further skilled OT services needed for this admission. Frequency of Treatment Frequency Of Treatment Discharge Discharge Recommendations OT Discharge Recommendations Home with Assistance Home Equipment Needs pt has tub seat and grab bars
--- NOTE | 2018-08-02 16:40 | PT.IPTN ---
Current Diagnoses Angioneurotic edema, initial encounter (07/30/18) Physical Therapy Treatment Note M3 PT-IP Subjective Start: 08/02/18 16:39 Freq: NEEDED Status: Active Protocol: Document 08/02/18 16:40 AB (Rec: 08/02/18 16:40 AB [id number]) Subjective Physical Therapy Visit Type Type Patient Refusal Notes pt refused PT . stated that he just finished with OT session, had a bath, used the toilet and currently is still trying to catch his breath. agreed to do PT tomorrow. will f/u
--- NOTE | 2018-08-02 17:29 | PC.NURSE ---
Addendum entered by Roslyn Trejo 08/02/18 17:46: Patient complained of left side pain, offered to give him his prescribed Vicodin, but he refused. Original Note: During physical assessment patient questioned the side effects of his new blood pressure meds, so I educated him on the possible side effects. Patient alert and orientedx4. Patient was having difficulty breathing so I gave him an incentive spirometer and taught him how to use it. He agreed to use it 10x/hr. Helped patient transfer to chair to eat dinner, SBA. Later helped patient to walk to the bathroom, SBA.
[2018-08-02] MEDS: MAG HYDROX/ALUM/SIMETH 30 ML UDC PO (20:54)
[2018-08-03 04:00] VITALS: BP 126/80; PULSE 53; RESP 18; TEMP 36.6; O2SAT 96
[2018-08-03 05:07] LABS: Add Manual Diff / Slide Review NO; Basophils Percent Auto 0.1 % (0-2); Eosinophils Percent Auto 0.1 % (2-4); Hematocrit 45.7 % (41-53); Hemoglobin 15.8 g/dL (13.5-17.5); Lymphocytes Percent Auto 4.6 % (25-40); Mean Corpuscular HGB Conc 34.5 % (30-36); Mean Corpuscular Volume 95.5 fL (80-100); Monocytes Percent Auto 5.2 % (3-14); Neutrophils Absolute Auto 11000 /uL (3000-5900); Platelet Count 125 X10^3/uL (150-400); Red Blood Cell Count 4.78 X10^6/uL (4.5-5.9); Red Cell Distribution Width 13.8 % (11.6-14.8); White Blood Cell Count 12.2 X10^3/uL (4.5-11.0)
[2018-08-03 05:16] LABS: Blood Urea Nitrogen 24 mg/dL (9-20); Calcium 8.3 mg/dL (8.4-10.2); Carbon Dioxide 27 mmol/L (22-32); Chloride 108 mmol/L (98-107); Estimated Glomerular Filt Rate > 60.0 mL/min (>60); Glucose 146 mg/dL (70-100); HEMOLYSIS < 15 (0-50); Potassium 3.7 mmol/L (3.4-5.1); Sodium 142 mmol/L (137-145)
[2018-08-03 07:54] VITALS: BP 138/89; PULSE 52; RESP 18; TEMP 36.4; O2SAT 98
--- NOTE | 2018-08-03 08:11 | P.DS_ITS ---
History of Present Illness Date Patient Seen: 08/03/18 Time Patient Seen: 08:09 Chief complaint: Allergic Reaction Narrative: A 58-year-old male with past medical history of hypertension, chronic alcohol use, chronic tobacco use who presented to ED with tongue swelling. The patient has been taking lisinopril for his blood pressure control for very long time. He also mentioned to have had steak with garlic powder which seemed to be new for him the day of the admission. When EMS picked him up , patient was noted to be with the swelling tongue and lips. He received Benadryl 50 mg and albuterol en route to the hospital, but with no improvement. No other history was able to be obtained. Discharge Providers Date of admission: 07/30/18 07:49 Primary care physician: Elroy Dixon MD Consults: 08/01/18 13:30 Consult to Speech Therapy Evaluate & Treat Comment: Extubated at 1115 on 08/01/18; swallow eval needed Physician Instructions: Evaluate and treat 08/02/18 10:20 Consult to Occupational Therapy Evaluate & Treat Comment: Physician Instructions: Evaluate and treat Consult to Physical Therapy Evaluate & Treat Comment: Physician Instructions: Evaluate and Treat Discharge provider: Abbie Sandoval MD Discharge Date: 08/03/18 Summary Discharge Diagnosis: Acute respiratory failure due to angioedema, Resolved Lisinopril induced angioedema, Resolved HTN Alcohol abuse with withdrawals, resolved Hypernatremia, Resolved Tobacco abuse Hospital Course: Emergency department the patient was AAO x3, and was able to communicate a little. However, he did have a lot of tongue and lip swelling, with difficulty swallowing, but was able to spit up saliva. He received epinephrine shot with no improvement. Intubation was discussed with patient who agreed to it. He was intubated with anesthesia, after 1st attempt was failed to do so. Patient was then transferred to ICU for further management. In the ICU patient was started on Solu-Medrol 40 mg b.i.d., and 2 units of FFP were given. The next day patient's symptoms have not improved, he continued to have a lot of swelling around the oropharyngeal area. He was then switched to Solu-Medrol 125 mg q.6 hours, and Benadryl as well as famotidine were added. This has improved patient's symptoms, he continued to get better every day. He was successfully extubated on 08/01/2018, with no complications. He will be discharged home with prednisone taper of 60 mg b.i.d. for 3 days, and then 60 mg daily for 3 more days. He will continue Benadryl and famotidine for the next 10 days. While in the hospital, patient developed hypertension and was treated initially with labetalol IV pushes. Once extubated and swallow evaluation passed, patient was started on amlodipine 10 mg daily, with decent improvement in blood pressure. He will be discharged home on amlodipine 10 mg daily and instructions to follow up with his primary care provider. After extubation, patient appeared anxious and agitated. He revealed to us that he is a chronic drinker, 2 shots of whiskey every night, and he felt like he was going through some withdrawals. He was started on CIWA protocol Ativan as needed, and received total of 3 mg Ativan throughout his stay. He was instructed to avoid alcohol consumption. Status at Discharge Functional status at discharge: independent ambulation Overall status at discharge: patient is back to baseline Time Spent with Patient Less than 30 minutes Exam Vital Signs (past 8 hours): - 08/03/18 04:00 08/03/18 07:54 Temperature 97.9 F 97.5 F L Pulse Rate 53 L 52 L Respiratory Rate 18 18 Blood Pressure 126/80 138/89 Pulse Oximetry 96 98 Fraction of Inspired Oxygen 50 Oxygen Delivery Method Room Air Oxygen Flow Rate 0 Narrative Exam Narrative: Gen: NAD, AAOx3 HEENT: PERRLA BL. No swelling noted Neck: No LAD, supple, no JVD CV: RRR, no murmurs, no gallops Resp: CTA BL, no wheezing GI: +BS, soft, nontender, no organomegally MSK: Moves all extremities BL Back: Vertical cervical incision scar, healed Skin: No edema. R anticubital bruising Psych: Appropriate mood, able to make his own decisions Objective Labs Result Diagrams: 08/03/18 04:45 08/03/18 04:45 Labs: Laboratory Results - last 24 hr 08/03/18 08/03/18 04:45 04:45 WBC 12.2 H RBC 4.78 Hgb 15.8 Hct 45.7 MCV 95.5 MCH 33.0 MCHC 34.5 RDW 13.8 Plt Count 125 L Neut % (Auto) 90.0 H Lymph % (Auto) 4.6 L [place] % (Auto) 5.2 Eos % (Auto) 0.1 L Baso % (Auto) 0.1 Neut # (Auto) 59878 H Sodium 142 Potassium 3.7 Chloride 108 H Carbon Dioxide 27 BUN 24 H Creatinine 0.80 Estimated GFR > 60.0 BUN/Creatinine Ratio 30.0 H Glucose 146 H Calcium 8.3 L Discharge Plan Discharge Plan Discharge Problem: Angioedema Patient Disposition: Home Discharge Med Rec/Prescriptions Prescriptions: New diphenhydramine HCl [Benadryl] 25 mg capsule 25 mg PO BEDTIME Qty: 10 RF: 0 prednisone 20 mg tablet 60 mg PO BID Qty: 27 RF: 0 amlodipine 10 mg tablet 10 mg PO DAILY Qty: 30 RF: 2 Continue omeprazole 20 MG capsule,delayed release(DR/EC) 20 mg PO Q DAY Qty: 0 RF: 0 acetaminophen [Tylenol Extra Strength] 500 MG tablet 1,000 mg PO Q6HP PRN (Reason: Pain (Scale Score 1-3)) Qty: 0 RF: 0 hydroxyzine HCl 25 MG tablet 25 mg PO PRN PRN (Reason: Spasms) Qty: 0 RF: 0 methocarbamol 500 MG tablet 500 mg PO DAILY Qty: 0 RF: 0 aspirin 325 MG tablet,delayed release (DR/EC) 325 mg PO QDAY Qty: 0 RF: 0 famotidine 20 MG tablet 20 mg PO DAILY Qty: 0 RF: 0 ibuprofen 200 MG tablet 200 mg PO DAILY Qty: 0 RF: 0 Discontinued lisinopril 5 MG tablet 5 mg PO DAILY RF: 0 Provider Discharge Instructions Diet: Regular Discharge Data Primary Care Provider: Elroy Dixon Attending Provider: Kin Nava Admit Date/Time: 07/30/18 07:49 Quality VTE Deep Vein Thrombosis/Pulmonary Embolism Present on Admission: No
[2018-08-03] MEDS: AMLODIPINE 5 MG TABLET 10 MG PO (09:03)
[2018-08-03] MEDS: methylPREDNISolone 125 MG/2 ML VIAL IV (09:04)
[2018-08-03] MEDS: ENOXAPARIN 40 MG/0.4 ML SYRINGE SUBCUT (09:04)
--- NOTE | 2018-08-03 17:20 | PT.IPTN ---
Addendum entered and electronically signed by Amita Montejo PT 08/03/18 17:21: This is to certify that I have reviewed this documentation and POC. Original Note: Current Diagnoses Angioneurotic edema, initial encounter (07/30/18) Physical Therapy Treatment Note M3 PT-IP Subjective Start: 08/02/18 16:39 Freq: NEEDED Status: Discharge Protocol: Document 08/03/18 12:22 (Rec: 08/03/18 13:48 [id number]) Subjective Physical Therapy Visit Type Notes Pt was showered, dressed and in his w/c ready to d/c. He stated he was able to easily dress and shower himself as well as take a walk with nursing without any trouble. Spoke to nurse who agreed the patient is doing well with mobility and is quite safe for home. Offered pt that PT could still evaluate his function, but he refused firmly, stating he wants to go home.
== END 2018-08-03 12:00 | disposition home or self-care (01) | DRG 208 ==
LOC: ED 07:19 → ICU 07:50
PROVIDERS: Internal Medicine; Admitting Provider Internal Medicine; Emergency Provider Emergency Medicine; Family Provider Family Medicine; PCP Family Medicine; Visit Provider Internal Medicine
DX: J96.00 Acute respiratory failure, unspecified whether with hypoxia or hypercapnia (principal); E87.0 Hyperosmolality and hypernatremia; T78.3XXA Angioneurotic edema, initial encounter; T46.4X5A Adverse effect of angiotensin-converting-enzyme inhibitors, initial encounter; I10 Essential (primary) hypertension; F17.200 Nicotine dependence, unspecified, uncomplicated; F10.10 Alcohol abuse, uncomplicated
CPT/HCPCS: 31500; 36415; 36430; 36591; 36600; 71045; 80048; 80053; 82805; 82962; 83880; 84484; 85025; 86900; 86901; 86927; 87797; 92610; 92950; 94002; 94003; 94010; 94770; 94799; 96365; 96375; 97165; 97535; 99285; 99291; 99292; P9016; P9017; J1170; J1200; J1650; J2060; J2704; J2920; J2930

== ENCOUNTER → 2019-01-15 09:47 | Outpatient (CLI) | payer MEDICARE, MEDICAID, OTHER, SELFPAY ==
[2018-07-30 08:30] VITALS: BMI 29.8
[2018-08-01 09:00] VITALS: PULSE 43; RESP 16; O2SAT 96
--- NOTE | 2019-01-15 | DI.US.S_ITS ---
PROCEDURE: US ABDOMEN COMPLETE INDICATIONS: ADOMINAL PAIN/RIGHT UPPER QUADRANT PAIN TECHNIQUE: Real-time scanning was performed of the abdominal and retroperitoneal organs, with image documentation. COMPARISON: [facility], CT, CT ABDOMEN PELVIS WITH CONTRAST, 08/22/2017, 22:34. FINDINGS: Liver: Liver is normal in size and homogeneous in echotexture. Gallbladder: There is a 3.6 mm non-mobile hyperechoic nodule in the posterior wall of gallbladder without shadowing, most likely a gallbladder polyp. No gallstones. No gallbladder wall thickening, pericholecystic fluid or sonographic Judd's sign. Biliary ducts: Intrahepatic bile ducts are non-dilated. Extrahepatic bile duct caliber measures 4.2 mm. Normal is 6-7 mm or less in diameter, or 10 mm or less post-cholecystectomy. Pancreas: Visualized portions of the pancreas are sonographically normal. Spleen: Spleen is normal in size and homogeneous in echotexture. Kidneys: Kidneys are normal in size and echotexture. Right kidney measures 10.7 cm long; left kidney measures 12.2 cm long. There is a 4.3 mm hyperechoic focus with equivocal posterior shadowing in the mid left kidney, questioning for a small stone. No hydronephrosis. No solid masses. Aorta: Visualized aorta is normal in caliber at less than 3 cm. Iliacs: Proximal common iliac arteries are normal in caliber at less than 2.5 cm. IVC: Intrahepatic inferior vena cava is patent. Miscellaneous: No free abdominal fluid. Appendix is not visualized. IMPRESSION: 1. A sequence inferior polyp involving the posterior wall of the gallbladder. 2. Possible small nonobstructive stone in the mid left kidney. Dictated by: Sera Kennedy M.D. on 01/15/2019 at 11:19 Approved by: Sera Kennedy M.D. on 01/15/2019 at 11:24
== END ==
PROVIDERS: Family Provider Family Medicine; PCP Physician Assistant Medical; Visit Provider Physician Assistant Medical
DX: R10.11 Right upper quadrant pain (principal); K82.4 Cholesterolosis of gallbladder
CPT/HCPCS: 76700

== ENCOUNTER 2019-04-21 19:53 | Observation (INO) | payer MEDICARE, MEDICAID, OTHER, SELFPAY ==
[2018-07-30 08:30] VITALS: BMI 29.8
[2018-08-01 09:00] VITALS: PULSE 43; RESP 16; O2SAT 96
[2019-04-21] VITALS (7 sets, daily range): BP systolic 138–155; BP diastolic 91–100; PULSE 66–86; RESP 17–21; TEMP 36.4–36.9; O2SAT 95–98; BMI 31.0
--- NOTE | 2019-04-21 19:54 | ED.ALLEREA ---
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 He states that approximately 1 hour prior to arrival here in the emergency department he was eating a piece of chocolate. He states that he has had this particular brand of chocolate in the past without any problems. He states that he started noticing swelling on the right side of his tongue and pain the right side of his neck. He did have an EpiPen which he gave himself. EMS gave 50 mg of Benadryl IV prior to arrival. Patient denies any rashes. No nausea vomiting. Related Data Home Medications Medication Instructions Recorded Confirmed amlodipine 1 tab PO DAILY 04/21/19 04/21/19 Allergies Allergy/AdvReac Type Severity Reaction Status Date / Time lisinopril Allergy Severe Swelling Verified 04/21/19 20:22 of Lip/Tongue/Throat citalopram [CITALOPRAM] Allergy Unknown SEIZURES Verified 04/21/19 20:22 hydrocodone [HYDROCODONE] AdvReac Mild N/V Verified 04/21/19 20:22 Review of Systems Constitutional Denies fever(s) and Denies headache(s) ENT Ears, Nose, Mouth, and Throat: Denies vertigo, Denies facial pain, Denies headache(s), Reports neck pain, Denies disequilibrium, Denies sore throat, Reports throat swelling and Reports tongue swelling Cardiovascular Denies chest pain and Denies dyspnea Respiratory Denies dyspnea Gastrointestinal Gastrointestinal: Denies abdominal pain, Denies nausea and Denies vomiting Musculoskeletal Denies myalgias, Denies arthralgias and Reports neck pain Integumentary/Breasts Denies rash Neurologic Denies behavioral changes, Denies vertigo, Denies headache(s) and Denies disequilibrium Psychiatric Denies behavioral changes Hematologic/Lymphatic Denies easy bleeding and Denies easy bruising Allergic/Immunologic Reports throat swelling and Reports tongue swelling [facility] Medical History Chronic thoracic spine pain (Acute) Dyspepsia (Acute) History of rib fracture (Acute) History of stroke (Acute) Hx of angioedema (Acute) Injury of hip, right (Acute) Intermittent lightheadedness (Acute) Hypertension (Acute) Surgical History (Updated 04/22/19 @ 00:48 by SIRIA Gunter) History of Blanche fundoplication (Acute) History of eye surgery (Acute) History of splenectomy (Acute) Status post cervical spinal fusion (Acute) Family History (Updated 04/22/19 @ 00:52 by SIRIA Gunter) Father Congestive heart failure Lymph edema Mother Perforated sigmoid colon Brother Stroke Sister Hypertension Social History household members: family and children Smoking Status: Current every day smoker Family History (Updated 04/22/19 @ 00:52 by SIRIA Gunter) Father Congestive heart failure Lymph edema Mother Perforated sigmoid colon Brother Stroke Sister Hypertension Social History household members: family and children Smoking Status: Current every day smoker Exam Initial Vital Signs Initial Vital Signs: Vital Signs Temperature 98.5 F 04/21/19 19:52 Pulse Rate 86 04/21/19 19:52 Respiratory Rate 21 04/21/19 19:52 Blood Pressure 155/100 H 04/21/19 19:52 Pulse Oximetry 96 04/21/19 19:52 Const General: cooperative, comfortable, well developed, well groomed and No acute distress Orientation: alert, awake and oriented x3 HENMT Head: normal to inspection and normocephalic Nose: external nose normal Face and sinus: normal facial exam Resp Effort & Inspection: normal respiratory effort Auscultation: clear to auscultation bilaterally Cardio Rate: regular rate Rhythm: regular rhythm Pulses: radial pulses present GI Inspection: non-distended Palpation: soft, No firm and No tender Skin Lesions: no lesions Rashes: no rashes Neuro General: alert, awake and oriented x3 Cognition: normal cognition Speech: speech normal Gait: normal gait Motor: muscle tone normal throughout Sensory Exam: no sensory deficits noted Extrem General: normal to inspection and capillary refill normal Psych Appearance: grossly normal and well kempt Scores GCS Alvin coma scale eye opening: Spontaneous Alvin coma scale verbal response: Orientated Alvin coma scale motor response: Obey commands [place] coma scale total score: 15 Course Orders Ordered: ED Orders 04/21/19 19:55 Basic Metabolic Panel Stat Complete Blood Count AUTO DIFF Stat 04/21/19 23:49 Education, smoking cessation ONGOING 04/21/19 23:55 Consult to Discharge Planning Routine 04/22/19 Basic Metabolic Panel Routine Complete Blood Count AUTO DIFF Routine Acetaminophen (Tylenol) 650 mg PO Q6HR PRN PRN Reason: As Needed for Fever/Mild Pain Al Hydrox/Mg Hydrox/Simethicone (Maalox Plus) 30 ml PO Q6HR PRN PRN Reason: Dyspepsia Amlodipine Besylate (Norvasc) 5 mg PO DAILY MGIUEL Calcium Carbonate (Tums) 1,000 mg PO Q4HR PRN PRN Reason: Dyspepsia Famotidine (Pepcid) 20 mg in 50 mls @ 200 mls/hr IV Q12HR MIGUEL Sodium Chloride (Normal Saline 0.9%) 1,000 mls @ 50 mls/hr IV CONT MIGUEL Last Admin: 04/22/19 00:41 Dose: 50 mls/hr Methylprednisolone (Solu-Medrol 125 Mg Vial) 60 mg IV Q8H MIGUEL Ondansetron HCl (Zofran) 4 mg IV Q8HR PRN PRN Reason: Nausea And Vomiting Discontinued Medications Sodium Chloride (Normal Saline 0.9%) 1,000 mls @ 1,000 mls/hr IV BOLUS ONE Stop: 04/21/19 20:53 Last Infusion: 04/21/19 21:00 Dose: 0 mls/hr Admin: 04/21/19 20:01 Dose: 1,000 mls/hr Famotidine (Pepcid) 20 mg in 50 mls @ 200 mls/hr IV NOW ONE Stop: 04/21/19 20:08 Last Infusion: 04/21/19 20:15 Dose: 0 mls/hr Admin: 04/21/19 20:01 Dose: 200 mls/hr Methylprednisolone (Solu-Medrol 125 Mg Vial) 125 mg IV NOW ONE Stop: 04/21/19 19:55 Last Admin: 04/21/19 20:01 Dose: 125 mg Methylprednisolone (Solu-Medrol 125 Mg Vial) 60 mg IV Q8H [facility] Vital Signs - 8 hr 04/21/19 19:52 04/21/19 20:16 04/21/19 21:11 Temperature 98.5 F Pulse Rate 86 82 68 Respiratory Rate 21 18 21 Blood Pressure 155/100 H Blood Pressure [Right Arm] 138/91 H 145/97 H Pulse Oximetry 96 95 96 04/21/19 21:54 04/21/19 22:30 04/21/19 23:43 Temperature Pulse Rate 66 78 69 Respiratory Rate 18 18 Blood Pressure 146/97 H Blood Pressure [Right Arm] 146/97 H 146/97 H Pulse Oximetry 96 98 97 04/21/19 23:52 Temperature 97.5 F L Pulse Rate 67 Respiratory Rate 17 Blood Pressure 148/95 H Blood Pressure [Right Arm] Pulse Oximetry 97 MDM - Allergic Reaction Lab Data Attestation: I reviewed the patient's lab results. Result diagrams: 04/21/19 19:55 04/21/19 19:55 Lab Results 04/21/19 04/21/19 Range/Units 19:55 19:55 WBC 9.7 (4.5-11.0) X10^3/uL RBC 5.53 (4.5-5.9) X10^6/uL Hgb 17.7 H (13.5-17.5) g/dL Hct 51.9 (41-53) % MCV 93.7 (80-100) fL MCH 32.1 (26-34) PG MCHC 34.2 (30-36) % RDW 13.7 (11.6-14.8) % Plt Count 144 L (150-400) X10^3/uL Neut % (Auto) 67.3 (50-75) % Lymph % (Auto) 22.1 L (25-40) % [place] % (Auto) 6.4 (3-14) % Eos % (Auto) 3.5 (2-4) % Baso % (Auto) 0.7 (0-2) % Neut # (Auto) 6500 (8592-5004) /uL Lymph # (Auto) 2200 (5944-2087) /uL [place] # (Auto) 600 (0-900) /uL Eos # (Auto) 300 (0-450) /uL Baso # (Auto) 100 (0-100) /uL Sodium 141 (137-145) mmol/L Potassium 3.6 (3.4-5.1) mmol/L Chloride 106 (98-107) mmol/L Carbon Dioxide 26 (22-32) mmol/L BUN 16 (9-20) mg/dL Creatinine 1.00 (0.66-1.25) mg/dL Estimated GFR > 60.0 (>60) mL/min BUN/Creatinine Ratio 16.0 (6-22) Glucose 116 H (70-100) mg/dL Calcium 9.3 (8.4-10.2) mg/dL MDM Narrative Medical decision making narrative: Patient received epinephrine and Benadryl prior to arrival. He was then given Pepcid and Solu-Medrol here in the ER. He had no respiratory distress. He states he feels like the right side of his tongue is still swollen. During his time here in the ER he states that his symptoms have not worsened but he also reports they have not improved all that much. No shortness of breath. Never been hypoxic. No rashes. No nausea vomiting. Given his history of angioedema and the symptoms that he presented with a do feel that admission to the hospital for an airway watch is warranted. Discussed the case with then piece got the night hospitalist to admit the patient for further evaluation and treatment. Discussed the admission with the patient who expressed understanding and agreement. Discharge Plan Departure Patient Disposition: Admitted as Observation Clinical Impression: Allergic reaction Qualifiers: Encounter type: initial encounter Qualified Code(s): T78.40XA - Allergy, unspecified, initial encounter Discharge Date/Time: 04/21/19 23:57 Interventions: ED Discharge Assessment Last Done: 04/21/19 23:43 Admit Date/Time: 04/21/19 22:56 Admit Provider: Gene Bermudez
[2019-04-21] MEDS: SODIUM CHLORIDE 0.9% 1,000 ML 1000 ML IV (20:01)
[2019-04-21] MEDS: FAMOTIDINE 20 MG/50 ML PIGGYBACK 200 MG IV (20:01)
[2019-04-21] MEDS: methylPREDNISolone 125 MG/2 ML VIAL IV (20:01)
[2019-04-21 20:07] LABS: Add Manual Diff / Slide Review NO; Basophils Absolute Auto 100 /uL (0-100); Basophils Percent Auto 0.7 % (0-2); Eosinophils Absolute Auto 300 /uL (0-450); Eosinophils Percent Auto 3.5 % (2-4); Hematocrit 51.9 % (41-53); Hemoglobin 17.7 g/dL (13.5-17.5); Lymphocytes Absolute Auto 2200 /uL (1100-4500); Lymphocytes Percent Auto 22.1 % (25-40); Mean Corpuscular HGB Conc 34.2 % (30-36); Mean Corpuscular Hemoglobin 32.1 PG (26-34); Mean Corpuscular Volume 93.7 fL (80-100); Monocytes Absolute Auto 600 /uL (0-900); Monocytes Percent Auto 6.4 % (3-14); Neutrophils Absolute Auto 6500 /uL (1500-7000); Neutrophils Percent Auto 67.3 % (50-75); Platelet Count 144 X10^3/uL (150-400); Red Blood Cell Count 5.53 X10^6/uL (4.5-5.9); Red Cell Distribution Width 13.7 % (11.6-14.8); White Blood Cell Count 9.7 X10^3/uL (4.5-11.0)
[2019-04-21 20:14] LABS: Blood Urea Nitrogen 16 mg/dL (9-20); Calcium 9.3 mg/dL (8.4-10.2); Carbon Dioxide 26 mmol/L (22-32); Chloride 106 mmol/L (98-107); Estimated Glomerular Filt Rate > 60.0 mL/min (>60); Glucose 116 mg/dL (70-100); HEMOLYSIS 22 (0-50); Potassium 3.6 mmol/L (3.4-5.1); Sodium 141 mmol/L (137-145)
[2019-04-22 00:11] VITALS: BMI 31.8
[2019-04-22] MEDS: SODIUM CHLORIDE 0.9% 1,000 ML 50 ML IV (00:41)
--- NOTE | 2019-04-22 00:42 | PM.HP.1 ---
History of Present Illness Date Patient Seen: 04/21/19 Time Patient Seen: 23:20 Chief complaint: Allergic Reaction Narrative: Mr. 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 The patient states he had eaten chocolate about 30 minutes prior to the onset of his symptoms which he has had 1 time previously without complication. He complains of hyperesthesia of his tongue and swelling of the right side of his tongue and lip edema as well as swelling and tenderness to the right upper lateral neck. He reports no other changes in diet food or environmental exposures and the last day. He denies any complaints of stridor shortness of breath or wheezing. He has a history of intermittent lightheadedness without any change in manifestations. He reports no recent illness and denies fevers or chills, nasal congestion. He does report a ?bum? to this on the right mandible but denies complaints of pain at that location. He has decreased range of motion of the neck having had spinal fusion from C2 to the thoracic vertebra. He denies chest pain or palpitations, shortness of breath or cough. He has had no abdominal pain, nausea vomiting, diarrhea or constipation. He has had a previous stroke and has mild residual right facial asymmetry and has had previous eye surgery with lid lag. Upon arrival in the ER the the patient was afebrile with temperature 98.5?, blood pressure 155/100, heart rate of 86, respirations 21 saturating 96% on room air. The patient received subcu epinephrine and Benadryl prior to arrival by EMS. The patient received Pepcid 20 mg IV and methylprednisolone 125 mg IV and a L of normal saline. On laboratory studies the patient has a white count of 9.7, hemoglobin of 17.9 and hematocrit of 51.9 with platelets of 144. His chemistries are within normal limits with a nonfasting glucose of 116. Patient continues to have mild swelling of the right tongue and right lateral neck and is admitted for ongoing medication management and airway monitoring. Patient History Medical History (Updated 04/22/19 @ 00:48 by SIRIA Gunter) Chronic thoracic spine pain (Acute) Dyspepsia (Acute) History of rib fracture (Acute) History of stroke (Acute) Hx of angioedema (Acute) Injury of hip, right (Acute) Intermittent lightheadedness (Acute) Hypertension (Acute) Surgical History (Updated 04/22/19 @ 00:48 by SIRIA Gunter) History of Blanche fundoplication (Acute) History of eye surgery (Acute) History of splenectomy (Acute) Status post cervical spinal fusion (Acute) Family History (Updated 04/22/19 @ 00:52 by SIRIA Gunter) Father Congestive heart failure Lymph edema Mother Perforated sigmoid colon Brother Stroke Sister Hypertension Social History household members: family and children Smoking Status: Current every day smoker Family & Social History Family History (Updated 04/22/19 @ 00:52 by SIRIA Gunter) Father Congestive heart failure Lymph edema Mother Perforated sigmoid colon Brother Stroke Sister Hypertension Social History: household members family,children Prior Living Arrangements House Safety & Behavioral: Feels Safe in Current Yes Environment Been Physically Hurt or No Threatened By a Person Suicidal Ideation Description None Suicide Plan Description No Plan Tobacco & Substance use: Tobacco type cigarettes Smoking Status Current every day smoker alcohol intake frequency 0-2 drinks per day Substance Use Type does not use Comment: The patient lives in a single family home with his and 2 children. 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 The patient is parents have both his father from CHF and lymphedema in his mother having of complications of perforation following colonoscopy. He has 5 brothers, 1 sister and 2 children. Occupation: The patient is currently disabled. Smoking: The patient is a current smoker having smoked 1/2 pack per day since age 13 and is currently cutting down smoking 3-5 cigarettes daily. Alcohol: Patient consumes 1-2 drinks of whiskey nightly. Substance use: The patient denies recreation pharmaceuticals or use of herbal or cannabis products. Advanced directives: In direct discussion with the patient expresses his desire to be FULL CODE. He designates his daughter Elmira or Kathy to be his surrogate decision makers. Meds Home Medications Medication Instructions Recorded Confirmed Type amlodipine 1 tab PO DAILY 04/21/19 04/21/19 History Allergies Allergy/AdvReac Type Severity Reaction Status Date / Time lisinopril Allergy Severe Swelling Verified 04/21/19 20:22 of Lip/Tongue/Throat citalopram [CITALOPRAM] Allergy Unknown SEIZURES Verified 04/21/19 20:22 hydrocodone [HYDROCODONE] AdvReac Mild N/V Verified 04/21/19 20:22 Review of Systems Review of Systems All systems reviewed & are unremarkable except as noted in HPI and below Exam Vital Signs (past 8 hours): - 04/21/19 19:52 04/21/19 20:16 04/21/19 21:11 Temperature 98.5 F Pulse Rate 86 82 68 Respiratory Rate 21 18 21 Blood Pressure 155/100 H Blood Pressure [Right Arm] 138/91 H 145/97 H Pulse Oximetry 96 95 96 04/21/19 21:54 04/21/19 22:30 04/21/19 23:43 Temperature Pulse Rate 66 78 69 Respiratory Rate 18 18 Blood Pressure 146/97 H Blood Pressure [Right Arm] 146/97 H 146/97 H Pulse Oximetry 96 98 97 04/21/19 23:52 Temperature 97.5 F L Pulse Rate 67 Respiratory Rate 17 Blood Pressure 148/95 H Blood Pressure [Right Arm] Pulse Oximetry 97 Oxygen Delivery Method Room Air Narrative Exam Narrative: GENERAL APPEARANCE: well developed, well nourished, in no acute distress. HEAD: Normocephalic, atraumatic, no scalp lesions. EYES: Right lid lag, pupils equal, round, reactive to light and accommodation, sclera non-icteric, extraocular movement intact without nystagmus. EARS: normal external structures, no ear pain NOSE: sinuses non tender to percussion, no rhinorrhea ORAL CAVITY: mucosa moist. mild right lingual swelling, palate normal, no dysarthria THROAT: normal, no erythema, no exudate, pharynx normal, uvula midline. NECK/THYROID: well healed surgical posterior cervical spine, mild swelling without adenopathy right lateral neck, no stridor, no jugular venous distention, no carotid bruit, no thyromegaly, trachea midline. LYMPH NODES: no cervical or supraclavicular lymphadenopathy. SKIN: warm and dry, no suspicious lesions, no rashes, good turgor. HEART: regular rate and rhythm, S1-S2 without murmur, no rubs or gallops, brisk capillary refill, no edema LUNGS: clear to auscultation bilaterally, no coarseness crackles or wheezing, no cough present CHEST: Symmetrical movement, no accessory muscle use ABDOMEN: Soft, no distention, no epigastric or abdominal tenderness on palpation, no guarding or peritoneal signs, no organomegaly, active bowel tones. BACK: Normal curvature, nontender to palpation, no CVA tenderness on percussion EXTREMITIES: moves all extremities, no deformities or joint effusions. NEUROLOGIC: AAO x4, mild residual right facial doop, remainder of cranial nerves grossly intact , motor strength 5/5 and symmetrical bilateral upper and lower extremities, decreased sensation to inner aspect RLL, hearing grossly normal to speech. PSYCH: alert, verbose, cognitive function intact, good eye contact, stable behavior Objective Labs Result Diagrams: 04/21/19 19:55 04/21/19 19:55 Labs: Laboratory Results - last 24 hr 04/21/19 04/21/19 19:55 19:55 WBC 9.7 RBC 5.53 Hgb 17.7 H Hct 51.9 MCV 93.7 MCH 32.1 MCHC 34.2 RDW 13.7 Plt Count 144 L Neut % (Auto) 67.3 Lymph % (Auto) 22.1 L [place] % (Auto) 6.4 Eos % (Auto) 3.5 Baso % (Auto) 0.7 Neut # (Auto) 6500 Lymph # (Auto) 2200 [place] # (Auto) 600 Eos # (Auto) 300 Baso # (Auto) 100 Sodium 141 Potassium 3.6 Chloride 106 Carbon Dioxide 26 BUN 16 Creatinine 1.00 Estimated GFR > 60.0 BUN/Creatinine Ratio 16.0 Glucose 116 H Calcium 9.3 Assessment & Plan Assessment & Plan narrative: This is a 59 year old male patient was admitted to the hospital with a prior history of severe angioedema reaction to lisinopril who presents with allergic reaction of unclear source but presumed to be a chocolate bar with resulting labial and lingual edema that persists 1. Acute allergic reaction, present on admission -patient can complains of tongue and lip swelling 30 minutes following eating a chocolate candy bar which he has had 1 time previously. -no other identifiable triggers or exposures to account for his symptoms. -patient received epinephrine and Benadryl by EMS prior to arrival. -patient remains hemodynamically stable without stridor, shortness of breath cough or dysphagia -in the ER the patient received methylprednisolone 125 mg and Pepcid 20 mg IV, with persistent right lingual edema and right lateral neck swelling. -will continue methylprednisolone 60 mg every 8 hours. -Pepcid 20 mg IV every 12 hours. -patient is admitted for airway monitoring. 2. Chronic Hypertension, stable -patient with prior angioedema requiring hospitalization related to lisinopril. -continue patient's home medication regimen of amlodipine 5 mg daily. 3. Gastroesophageal reflux disorder, chronic, stable -patient is status post Titi fundoplication -famotidine 20 mg IV every 12 hours -will continue the patient's home medication regimen of Mylanta and Tums as needed. 4. Tobacco dependence, active -patient has an approximately 16 pack/year smoking history, currently smoking 4-5 cigarettes a day -encouraged smoking cessation. The patient is admitted to the hospital due to persistent symptoms and risk of complications or adverse events. The patient is admitted as observation status with expected length of stay less than 2 midnights. Scores GCS Murray coma scale eye opening: Spontaneous Murray coma scale verbal response: Orientated Murray coma scale motor response: Obey commands Alvin coma scale total score: 15 Quality VTE Deep Vein Thrombosis/Pulmonary Embolism Present on Admission: No
[2019-04-22 02:15] VITALS: PULSE 72; RESP 18; O2SAT 96
--- NOTE | 2019-04-22 02:51 | PC.NURSE ---
Pt arrived on unit shortly p 0000. He c/o cervical neck pain but stated he would not be taking anything for it as he has weaned himself down on opiate pain meds. He stated his tongue felt like it was getting back to a normal size. He was hypertensive when he arrived on unit, but last BP = 148/75. A and O x 4. Unclear what triggered this allergic reaction.
[2019-04-22] MEDS: methylPREDNISolone 125 MG/2 ML VIAL 60 MG IV (03:10)
--- NOTE | 2019-04-22 03:12 | PC.NURSE ---
Pt c/o of tingling in his R hand, and scraping pain in his R shoulder. Pt states he has had these sensations before and believes they are related to his cervial spine pain. VSS. aware.
[2019-04-22 03:21] VITALS: BP 139/91; PULSE 69; RESP 17; O2SAT 95
[2019-04-22] MEDS: MAG HYDROX/ALUM/SIMETH 30 ML UDC PO (03:35)
[2019-04-22 05:40] LABS: BUN Creatinine Ratio 18.8 (6-22); Blood Urea Nitrogen 15 mg/dL (9-20); Calcium 8.9 mg/dL (8.4-10.2); Carbon Dioxide 24 mmol/L (22-32); Chloride 106 mmol/L (98-107); Estimated Glomerular Filt Rate > 60.0 mL/min (>60); Glucose 146 mg/dL (70-100); HEMOLYSIS < 15 (0-50); Potassium 4.2 mmol/L (3.4-5.1); Sodium 139 mmol/L (137-145)
[2019-04-22 05:42] LABS: Add Manual Diff / Slide Review NO; Basophils Absolute Auto 100 /uL (0-100); Basophils Percent Auto 1.2 % (0-2); Eosinophils Absolute Auto 0 /uL (0-450); Hematocrit 51.4 % (41-53); Hemoglobin 17.7 g/dL (13.5-17.5); Lymphocytes Absolute Auto 500 /uL (1100-4500); Lymphocytes Percent Auto 4.7 % (25-40); Mean Corpuscular HGB Conc 34.5 % (30-36); Mean Corpuscular Hemoglobin 32.1 PG (26-34); Mean Corpuscular Volume 93.1 fL (80-100); Monocytes Absolute Auto 0 /uL (0-900); Monocytes Percent Auto 0.4 % (3-14); Neutrophils Absolute Auto 10000 /uL (1500-7000); Neutrophils Percent Auto 93.7 % (50-75); Platelet Count 146 X10^3/uL (150-400); Red Blood Cell Count 5.52 X10^6/uL (4.5-5.9); Red Cell Distribution Width 13.3 % (11.6-14.8); White Blood Cell Count 10.7 X10^3/uL (4.5-11.0)
--- NOTE | 2019-04-22 08:01 | PM.DS.1 ---
History of Present Illness Date Patient Seen: 04/22/19 Chief complaint: Allergic Reaction Narrative: Mr. 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 The patient states he had eaten chocolate about 30 minutes prior to the onset of his symptoms which he has had 1 time previously without complication. He complains of hyperesthesia of his tongue and swelling of the right side of his tongue and lip edema as well as swelling and tenderness to the right upper lateral neck. He reports no other changes in diet food or environmental exposures and the last day. He denies any complaints of stridor shortness of breath or wheezing. He has a history of intermittent lightheadedness without any change in manifestations. He reports no recent illness and denies fevers or chills, nasal congestion. He does report a ?bum? to this on the right mandible but denies complaints of pain at that location. He has decreased range of motion of the neck having had spinal fusion from C2 to the thoracic vertebra. He denies chest pain or palpitations, shortness of breath or cough. He has had no abdominal pain, nausea vomiting, diarrhea or constipation. He has had a previous stroke and has mild residual right facial asymmetry and has had previous eye surgery with lid lag. Upon arrival in the ER the the patient was afebrile with temperature 98.5?, blood pressure 155/100, heart rate of 86, respirations 21 saturating 96% on room air. The patient received subcu epinephrine and Benadryl prior to arrival by EMS. The patient received Pepcid 20 mg IV and methylprednisolone 125 mg IV and a L of normal saline. On laboratory studies the patient has a white count of 9.7, hemoglobin of 17.9 and hematocrit of 51.9 with platelets of 144. His chemistries are within normal limits with a nonfasting glucose of 116. Patient continues to have mild swelling of the right tongue and right lateral neck and is admitted for ongoing medication management and airway monitoring. Discharge Providers Date of admission: 04/21/19 22:56 Discharge Date: 04/22/19 Primary care physician: Adán Holman Consults: 04/21/19 23:55 Consult to Discharge Planning Routine Comment: Discharge provider: Chichi Fleming MD Summary Discharge Diagnosis: 1. Allergic Reaction 2. 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 Hypertension Hospital Course: Patient was admitted to the hospital for abrupt onset of tongue swelling after eating chocolate. Reports having eaten chocolate before without difficulty. Of note the patient was hospitalized in July for severe angioedema felt to be secondary to lisinopril. He required intubation at the time. The patient's swelling of his tongue started yesterday. He took an appy shot at home. He was given Benadryl in the medics unit. The patient also received IV Solu-Medrol and Pepcid. The swelling of his tongue has improved. He has no sore throat. He has no cough. He has no shortness of breath. No chest pain. Patient denies any wheezing. As the symptoms have completely resolved he was deemed appropriate for discharge and arrangements were made for him to discharge home. Status at Discharge Cognitive/behavioral status at discharge: oriented Functional status at discharge: independent ambulation Overall status at discharge: patient is back to baseline Time Spent with Patient Less than 30 minutes Exam Vital Signs (past 8 hours): - 04/22/19 02:15 04/22/19 03:21 Pulse Rate 72 69 Respiratory Rate 18 17 Blood Pressure 139/91 H Pulse Oximetry 96 95 Fraction of Inspired Oxygen 0.21 Oxygen Delivery Method Room Air Narrative Exam Narrative: Pleasant male in no acute distress Oropharynx: No tongue swelling, no lesions noted Lungs: Clear to auscultation Cardiac exam: Regular rate rhythm Skin exam: No lesion Objective Labs Result Diagrams: 04/22/19 04:50 04/22/19 04:50 Labs: Laboratory Results - last 24 hr 04/21/19 04/21/19 04/22/19 19:55 19:55 04:50 WBC 9.7 10.7 RBC 5.53 5.52 Hgb 17.7 H 17.7 H Hct 51.9 51.4 MCV 93.7 93.1 MCH 32.1 32.1 MCHC 34.2 34.5 RDW 13.7 13.3 Plt Count 144 L 146 L Neut % (Auto) 67.3 93.7 H D Lymph % (Auto) 22.1 L 4.7 L Greer % (Auto) 6.4 0.4 L Eos % (Auto) 3.5 0.0 L Baso % (Auto) 0.7 1.2 Neut # (Auto) 6500 31822 H Lymph # (Auto) 2200 500 L Greer # (Auto) 600 0 Eos # (Auto) 300 0 Baso # (Auto) 100 100 Sodium 141 Potassium 3.6 Chloride 106 Carbon Dioxide 26 BUN 16 Creatinine 1.00 Estimated GFR > 60.0 BUN/Creatinine Ratio 16.0 Glucose 116 H Calcium 9.3 04/22/19 04:50 WBC RBC Hgb Hct MCV MCH MCHC RDW Plt Count Neut % (Auto) Lymph % (Auto) Greer % (Auto) Eos % (Auto) Baso % (Auto) Neut # (Auto) Lymph # (Auto) Greer # (Auto) Eos # (Auto) Baso # (Auto) Sodium 139 Potassium 4.2 Chloride 106 Carbon Dioxide 24 BUN 15 Creatinine 0.80 Estimated GFR > 60.0 BUN/Creatinine Ratio 18.8 Glucose 146 H Calcium 8.9 Discharge Plan Discharge Plan Patient Disposition: Home Discharge comment: Follow up with Dr. Holman for referral to [facility] [employer] [facility] Discharge Med Rec/Prescriptions Prescriptions: Continued amlodipine 5 mg tablet 1 tab PO DAILY RF: 0 Follow up/Referrals: Adán Holman [Primary Care Provider] - Provider Discharge Instructions Diet: Low-sodium Visit Report/Discharge Packet Instructions: Anaphylaxis, Low-Sodium Diet Discharge Data Primary Care Provider: Adán Holman Attending Provider: Gene Bermudez Admherbert Date/Time: 04/21/19 22:56 Quality VTE Deep Vein Thrombosis/Pulmonary Embolism Present on Admission: No
--- NOTE | 2019-04-22 10:18 | PC.NURSE ---
Discharge Pt recieved d/c orders early in the AM. pt awake and anxious to go home. PIV and tele removed. d/c instructions provided to pt. pt states he will make apt with PCP. pt took all belongings with him. left at 0930 in w/c with [employer] escort.
--- NOTE | 2019-04-22 12:53 | CM.DANOTE ---
Discharge Planning/Care Management DCP: assessment: case received and discussed in Team Rounds. Pt is a 59 year old male who admitted last night to care of hospitalist team. Payer: Keisha NICOLE PCP: Adán Holman. Dr. Fleming noted in rounds that pt has an allergic reaction to chocolate, he was treated and was now stable for d/c. Went to check in with pt after rounds...He had already left for home. Planned to follow up with his PCP, per BARBARA Winston. CM Discharge Assessment Start: 04/22/19 12:52 Freq: Status: Active Protocol: Document 04/22/19 12:52 ITV (Rec: 04/22/19 12:53 ITV [id number]) Discharge Planning Assessment Advance Directives? No Advance Directives on File No History Provided By Patient Family Member Medical Record Prior Living Arrangements House Household Members family children Discharge Plan Home Review Status In Process
--- NOTE | 2019-04-26 10:06 | PC.NURSE ---
Late entry: Sodium chloride stopped 04/22 1298
== END 2019-04-22 09:35 | disposition home or self-care (01) ==
LOC: ED 22:31 → AC 22:57
PROVIDERS: Admitting Provider Nurse Practitioner Adult Health; Emergency Provider Emergency Medicine; Family Provider Family Medicine; PCP Physician Assistant Medical; Visit Provider Nurse Practitioner Adult Health
DX: T78.1XXA Other adverse food reactions, not elsewhere classified, initial encounter (principal); I10 Essential (primary) hypertension; F17.210 Nicotine dependence, cigarettes, uncomplicated
CPT/HCPCS: 36415; 80048; 85025; 96361; 96374; 96375; 96376; 99283; 99284; 99406; G0378; J2930

== ENCOUNTER 2019-04-28 13:42 | Emergency (ER) | payer MEDICARE, MEDICAID, OTHER, SELFPAY ==
[2018-08-01 09:00] VITALS: PULSE 43; RESP 16; O2SAT 96
[2019-04-28] VITALS (7 sets, daily range): BP systolic 133–160; BP diastolic 79–107; PULSE 93–100; RESP 16–21; TEMP 37.1; O2SAT 95–98; BMI 31.6
[2019-04-28] MEDS: FAMOTIDINE 20 MG/50 ML PIGGYBACK 200 MG IV (13:45)
--- NOTE | 2019-04-28 14:16 | ED_ITS ---
HPI - Allergic Reaction General Chief complaint: Allergic Reaction Stated complaint: Tongue swelling Time Seen by Provider: 04/28/19 13:44 Source: patient and EMS Mode of arrival: EMS Limitations: no limitations History of Present Illness HPI narrative: Patient comes emergency department after noticing swelling of his left tongue, which began about 2 hours ago. Patient states he noticed it just very slightly this morning, but was not sure whether it was actually anything abnormal or not. However, around noon today, he noticed that the left side of his tongue felt enlarged. Patient has a history of angioedema, and states he did not want to take any chances, so he called EMS to bring him in. Patient denies any swelling or tightness in his throat or the rest of his mouth. No difficulty breathing. No rash or itching anywhere. No other complaints at this time. Patient states that his 1st episode was last July, and that he swelled so severely that he had to be intubated and was kept in the hospital for several days. At that time, he was on lisinopril, and this was thought to be the. The lisinopril postop the time and patient did not have any further swelling until January where he had a very mild, partial tongue swelling. He states for that he took to Benadryl at home, and symptoms improved on their own. Patient states his next episode was about 1 week ago, and he was seen here for this. It was about the same as today, and the patient was given IV Benadryl, steroids, and Pepcid, as well as epinephrine, and symptoms also resolved spontaneously. Patient states he cannot identify any common factor in the episodes, as far as identifying what may be causing symptoms. 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 Patient states that the symptoms progressed somewhat between 12 and 1:00 a.m., but that for the past 45 minutes, they have been stable. He states the swelling only involves the left edge of his tongue. There is no family history of hereditary angioedema. Prior to the incident in July, patient had never had symptoms like this. Related Data Home Medications Medication Instructions Recorded Confirmed amlodipine 1 tab PO DAILY 04/21/19 04/21/19 Previous Rx's Medication Instructions Recorded prednisone 60 mg PO DAILY #9 tab 04/28/19 Allergies Allergy/AdvReac Type Severity Reaction Status Date / Time lisinopril Allergy Severe Swelling Verified 04/21/19 20:22 of Lip/Tongue/Throat citalopram [CITALOPRAM] Allergy Unknown SEIZURES Verified 04/21/19 20:22 hydrocodone [HYDROCODONE] AdvReac Mild N/V Verified 04/21/19 20:22 Review of Systems Constitutional Denies chills, Denies fever(s), Denies lethargy and Denies weakness Eyes Denies change in vision, Denies eye discharge, Denies irritation and Denies loss of vision ENT Ears, Nose, Mouth, and Throat: Denies change in voice, Denies neck pain and Denies sore throat Comments: Tongue swelling Cardiovascular Denies chest pain, Denies irregular heart rhythm, Denies lightheadedness, Denies palpitations, Denies dyspnea, Denies dyspnea on exertion and Denies orthopnea Respiratory Denies cough, Denies dyspnea, Denies dyspnea on exertion and Denies wheezing Gastrointestinal Gastrointestinal: Denies abdominal pain, Denies change in bowel habits, Denies diarrhea, Denies nausea and Denies vomiting Genitourinary Denies hematuria, Denies flank pain, Denies urinary incontinence and Denies urinary urgency Musculoskeletal Denies neck pain Integumentary/Breasts Denies pruritus, Denies erythema, Denies rash and Denies wounds Neurologic Denies confusion, Denies loss of vision and Denies weakness Psychiatric Denies anxiety, Denies confusion, Denies depression, Denies homicidal ideation and Denies suicidal ideation Endocrine Denies palpitations Hematologic/Lymphatic Denies easy bruising Allergic/Immunologic Denies wheezing [facility] Medical History Chronic thoracic spine pain (Acute) Dyspepsia (Acute) History of rib fracture (Acute) History of stroke (Acute) Hx of angioedema (Acute) Hypertension (Acute) Injury of hip, right (Acute) Intermittent lightheadedness (Acute) Surgical History History of Blanche fundoplication (Acute) History of eye surgery (Acute) History of splenectomy (Acute) Status post cervical spinal fusion (Acute) Family History (Updated 04/22/19 @ 00:52 by SIRIA Gunter) Father Congestive heart failure Lymph edema Mother Perforated sigmoid colon Brother Stroke Sister Hypertension Social History household members: family and children Smoking Status: Current every day smoker Family History Father Congestive heart failure Lymph edema Mother Perforated sigmoid colon Brother Stroke Sister Hypertension Social History household members: family and children Smoking Status: Current every day smoker Exam Initial Vital Signs Initial Vital Signs: Vital Signs Pulse Rate 97 H 04/28/19 13:20 Respiratory Rate 18 04/28/19 13:20 Blood Pressure 152/80 H 04/28/19 13:20 Pulse Oximetry 97 04/28/19 13:20 Const General: cooperative and well developed Nutritional Appearance: well nourished Orientation: alert, awake, oriented x3 and not confused HENMT Head: normocephalic and atraumatic Ears: external ears normal Nose: external nose normal and No nasal discharge Face and sinus: face symmetric and No dry mucous membranes Mouth: No tongue normal (Patient has mild edema of the left edge of his tongue.), moist mucous membranes and No drooling Teeth and gingiva: dentition normal Throat: posterior oropharynx normal, tonsils normal, uvula midline and no uvular edema Eyes General: appearance normal, both eyes and all related structures Eyelids: eyelids normal Conjunctivae: conjunctivae normal Sclera: sclerae normal Pupils: PERRL EOM: EOM intact bilaterally Neck Neck: normal visual inspection, trachea midline, No lymphadenopathy, No midline deformity and No JVD Lymphatic: No lymphedema Chest Chest: normal inspection of the chest Resp Effort & Inspection: normal respiratory effort, able to speak in complete senten crispin, no respiratory distress and no use of accessory muscles Auscultation: clear to auscultation bilaterally, no rales, no rhonchi and no wheezes Cardio Rate: regular rate Rhythm: regular rhythm Heart Sounds: no click, no gallops, no murmurs and no rubs Pulses: normal peripheral pulses GI Inspection: non-distended Palpation: soft, no hepatosplenomegaly, No guarding, No pulsatile mass and No tender Back/Spine/Pelvis Back: No CVA tenderness Cervical Spine: cervical ROM normal and No pain with cervical ROM Thoracic/Lumbar Spine: thoracic and lumbar spine normal to inspection Skin General: no rashes or lesions noted, No jaundice and No petechiae Neuro General: alert, oriented x3, gait normal and no focal motor deficits Speech: speech normal Extrem General: full ROM, no clubbing, cyanosis or edema, no pedal edema and no calf tenderness Psych Appearance: well kempt Mental Status: mental status grossly normal Attitude: cooperative Thought Content: normal and suicidality Judgment: judgment good Course Course Narrative: Patient was treated with Solu-Medrol, Pepcid, and IM epinephrine in the emergency department. He had already been given IV Benadryl EN route by the medics. He was observed in the emergency department for any wo rsening of his condition. Patient remained stable throughout his stay in the emergency department. He had minimal symptoms to begin with, and did not develop any further swelling. In fact, he did demonstrate improvement in the swelling that he did have in his tongue. Patient expressed concern about a couple of teeth that have a cracked filling, and I did advise him to follow up with his dentist about this. I have not found any evidence of a dental infection, and I have discussed this with the patient. We have discussed the usual indications for return, as well as symptomatic management at. Patient is advised to take Benadryl as long as he is having symptoms, and is also discharged with a course of prednisone. Orders Ordered: ED Orders 04/28/19 14:20 Complete Blood Count AUTO DIFF Stat Comprehensive Metabolic Panel Stat Discontinued Medications Epinephrine HCl (Adrenalin) 0.3 mg IM NOW ONE Stop: 04/28/19 14:38 Last Admin: 04/28/19 14:41 Dose: 0.3 mg Famotidine (Pepcid) 20 mg in 50 mls @ 200 mls/hr IV NOW ONE Stop: 04/28/19 14:53 Last Infusion: 04/28/19 14:15 Dose: 0 mls/hr Admin: 04/28/19 13:45 Dose: 200 mls/hr Methylprednisolone (Solu-Medrol 125 Mg Vial) 125 mg IV NOW ONE Stop: 04/28/19 14:37 Last Admin: 04/28/19 14:40 Dose: 125 mg Vital Signs - 8 hr 04/28/19 13:20 04/28/19 13:35 04/28/19 13:45 Temperature 98.7 F Pulse Rate 97 H 98 H 94 H Respiratory Rate 18 18 18 Blood Pressure 157/92 H Blood Pressure [Right Arm] 152/80 H 134/79 Pulse Oximetry 97 98 95 04/28/19 14:00 04/28/19 14:35 04/28/19 15:32 Temperature Pulse Rate 99 H 98 H 100 H Respiratory Rate 18 18 16 Blood Pressure Blood Pressure [Right Arm] 134/82 133/79 160/107 H Pulse Oximetry 98 98 95 04/28/19 16:35 Temperature Pulse Rate 93 H Respiratory Rate 21 Blood Pressure Blood Pressure [Right Arm] 150/98 H Pulse Oximetry 97 MDM - Allergic Reaction Medical Records Attestation: I reviewed the patient's medical records. Lab Data Attestation: I reviewed the patient's lab results. Result diagrams: 04/28/19 14:20 04/28/19 14:20 Lab Results 04/28/19 04/28/19 Range/Units 14:20 14:20 WBC 10.2 (4.5-11.0) X10^3/uL RBC 5.61 (4.5-5.9) X10^6/uL Hgb 18.2 H (13.5-17.5) g/dL Hct 52.6 (41-53) % MCV 93.7 (80-100) fL MCH 32.4 (26-34) PG MCHC 34.6 (30-36) % RDW 13.4 (11.6-14.8) % Plt Count 154 (150-400) X10^3/uL Neut % (Auto) 73.4 (50-75) % Lymph % (Auto) 15.0 L (25-40) % Toole % (Auto) 8.6 (3-14) % Eos % (Auto) 2.8 (2-4) % Baso % (Auto) 0.2 (0-2) % Neut # (Auto) 7500 H (3439-5881) /uL Lymph # (Auto) 1500 (2463-6378) /uL Toole # (Auto) 900 (0-900) /uL Eos # (Auto) 300 (0-450) /uL Baso # (Auto) 0 (0-100) /uL Sodium 140 (137-145) mmol/L Potassium 3.8 (3.4-5.1) mmol/L Chloride 107 (98-107) mmol/L Carbon Dioxide 26 (22-32) mmol/L BUN 15 (9-20) mg/dL Creatinine 0.90 (0.66-1.25) mg/dL Estimated GFR > 60.0 (>60) mL/min BUN/Creatinine Ratio 16.7 (6-22) Glucose 94 (70-100) mg/dL Calcium 8.9 (8.4-10.2) mg/dL Total Bilirubin 1.1 (0.2-1.3) mg/dL AST 30 (17-59) IU/L ALT 33 (21-72) IU/L Alkaline Phosphatase 84 (38-126) U/L Total Protein 6.8 (6.3-8.2) g/dL Albumin 4.0 (3.5-5.0) g/dL Globulin 2.8 (1.7-4.1) g/dL Albumin/Globulin Ratio 1.4 (1.0-2.8) Discharge Plan Departure Patient Disposition: Home Clinical Impression: Angioedema Qualifiers: Encounter type: initial encounter Qualified Code(s): T78.3XXA - Angioneurotic edema, initial encounter Discharge Date/Time: 04/28/19 17:01 Interventions: ED Discharge Assessment Last Done: 04/28/19 17:00 Instructions: DI for Angioedema Activity Restrictions/Additional Instructions: Your labs look good. It is very important that he follow up with the wool fleece sorter, as well as with your dentist, to address the issues you been having. In the meantime, keep an EpiPen handy in case you experience significant swelling, and use the steroids and Benadryl, as needed for the swelling. Prescriptions: New prednisone 20 mg tablet 60 mg PO DAILY Qty: 9 RF: 0 No Action amlodipine 5 mg tablet 1 tab PO DAILY RF: 0 Referrals: Adán Holman [Primary Care Provider] -
[2019-04-28] MEDS: methylPREDNISolone 125 MG/2 ML VIAL IV (14:40)
[2019-04-28] MEDS: EPINEPHrine 1 MG/ML AMPUL 0.3 MG IM (14:41)
[2019-04-28 15:11] LABS: Alanine Aminotransferase 33 IU/L (21-72); Albumin Globulin Ratio 1.4 (1.0-2.8); Alkaline Phosphatase 84 U/L (38-126); Aspartate Aminotransferase 30 IU/L (17-59); BUN Creatinine Ratio 16.7 (6-22); Bilirubin Total 1.1 mg/dL (0.2-1.3); Blood Urea Nitrogen 15 mg/dL (9-20); Calcium 8.9 mg/dL (8.4-10.2); Carbon Dioxide 26 mmol/L (22-32); Chloride 107 mmol/L (98-107); Estimated Glomerular Filt Rate > 60.0 mL/min (>60); Globulin 2.8 g/dL (1.7-4.1); Glucose 94 mg/dL (70-100); HEMOLYSIS 37 (0-50); Potassium 3.8 mmol/L (3.4-5.1); Sodium 140 mmol/L (137-145); Total Protein 6.8 g/dL (6.3-8.2)
[2019-04-28 15:12] LABS: Add Manual Diff / Slide Review NO; Basophils Absolute Auto 0 /uL (0-100); Basophils Percent Auto 0.2 % (0-2); Eosinophils Absolute Auto 300 /uL (0-450); Eosinophils Percent Auto 2.8 % (2-4); Hematocrit 52.6 % (41-53); Hemoglobin 18.2 g/dL (13.5-17.5); Lymphocytes Absolute Auto 1500 /uL (1100-4500); Mean Corpuscular HGB Conc 34.6 % (30-36); Mean Corpuscular Hemoglobin 32.4 PG (26-34); Mean Corpuscular Volume 93.7 fL (80-100); Monocytes Absolute Auto 900 /uL (0-900); Monocytes Percent Auto 8.6 % (3-14); Neutrophils Absolute Auto 7500 /uL (1500-7000); Neutrophils Percent Auto 73.4 % (50-75); Platelet Count 154 X10^3/uL (150-400); Red Blood Cell Count 5.61 X10^6/uL (4.5-5.9); Red Cell Distribution Width 13.4 % (11.6-14.8); White Blood Cell Count 10.2 X10^3/uL (4.5-11.0)
--- NOTE | 2019-04-28 15:13 | PC.NURSE ---
Patient drinking coffee. Dr. Garcia in to see pt. Patient alert and oriented and in no distress.
== END 2019-04-28 17:01 | disposition home or self-care (01) ==
PROVIDERS: Emergency Provider Emergency Medicine; Family Provider Family Medicine; PCP Physician Assistant Medical
DX: T78.3XXA Angioneurotic edema, initial encounter (principal)
CPT/HCPCS: 80053; 85025; 96365; 96372; 96375; 99284; J0171; J2930

== ENCOUNTER 2019-06-10 11:35 | Emergency (ER) | payer MEDICARE, MEDICAID, OTHER, SELFPAY ==
[2018-08-01 09:00] VITALS: PULSE 43; RESP 16; O2SAT 96
[2019-06-10 11:40] VITALS: PULSE 97; RESP 22; TEMP 37.3; O2SAT 97
[2019-06-10 11:55] LABS: Hematocrit 54.3 % (41-53); Hemoglobin 19.3 g/dL (13.5-17.5); Mean Corpuscular HGB Conc 35.5 % (30-36); Mean Corpuscular Hemoglobin 32.9 PG (26-34); Mean Corpuscular Volume 92.8 fL (80-100); Platelet Count 163 X10^3/uL (150-400); Red Blood Cell Count 5.85 X10^6/uL (4.5-5.9); Red Cell Distribution Width 13.8 % (11.6-14.8); White Blood Cell Count 9.3 X10^3/uL (4.5-11.0)
[2019-06-10 12:00] VITALS: BP 133/95; PULSE 88; RESP 17; O2SAT 96
[2019-06-10 12:05] LABS: Alanine Aminotransferase 40 IU/L (21-72); Albumin 4.3 g/dL (3.5-5.0); Albumin Globulin Ratio 1.4 (1.0-2.8); Alkaline Phosphatase 78 U/L (38-126); Aspartate Aminotransferase 32 IU/L (17-59); Bilirubin Total 1.2 mg/dL (0.2-1.3); Blood Urea Nitrogen 15 mg/dL (9-20); Calcium 9.5 mg/dL (8.4-10.2); Carbon Dioxide 26 mmol/L (22-32); Chloride 105 mmol/L (98-107); Estimated Glomerular Filt Rate > 60.0 mL/min (>60); Globulin 3.1 g/dL (1.7-4.1); Glucose 112 mg/dL (70-100); HEMOLYSIS < 15 (0-50); Lipase 109 U/L (23-300); Sodium 141 mmol/L (137-145); Total Protein 7.4 g/dL (6.3-8.2)
--- NOTE | 2019-06-10 12:05 | ED.ABDPAIN ---
HPI - Abdominal Pain <[facility] - Last Filed: 06/11/19 02:20> General Chief Complaint: Abdominal Pain Stated Complaint: ABD PAIN Time Seen by Provider: 06/10/19 11:41 Source: patient Mode of arrival: ambulatory Limitations: no limitations History of Present Illness HPI narrative: This is a 59-year-old male, smoker, presents with family with right lower quadrant pain for 3 days. Patient denies fever, chills, nausea, vomiting but reports feels shaky and weak on his legs and also with decreased appetite. Patient reports his stomach feels bloated and had loose stool for last couple of days as well and denies blood in the stool. Patient reports pain increases with eating and movement. Patient denies recent travel or using antibiotic medications. Patient reports has been using [id number] Tums, antacid medications last 3 days without much help. Patient denies urinary symptoms or hematuria. Related Data Home Medications Medication Instructions Recorded Confirmed hydrochlorothiazide 25 mg PO QAM 06/10/19 06/10/19 Previous Rx's Medication Instructions Recorded dicyclomine 20 mg PO BID PRN #10 cap 06/10/19 Allergies Allergy/AdvReac Type Severity Reaction Status Date / Time lisinopril Allergy Severe Swelling Verified 04/21/19 20:22 of Lip/Tongue/Throat citalopram [CITALOPRAM] Allergy Unknown SEIZURES Verified 04/21/19 20:22 hydrocodone [HYDROCODONE] AdvReac Mild N/V Verified 04/21/19 20:22 Review of Systems <[facility] Last Filed: 06/11/19 02:20> Review of Systems General: Denies fever, chills, fatigue, malaise, sweats. HEENT: Denies sinus pain, ear pain, sore throat, difficulty swallowing, dizziness. Respiratory: Denies dyspnea, cough, wheezing, hemoptysis, sputum. Cardiovascular: Denies chest pain, palpitations, orthopnea, edema. Gastrointestinal: See HPI : Denies dysuria, frequency, incontinence, hematuria, urinary retention. Musculoskeletal: Denies weakness, joint pain or bony pain. Skin: Denies rash, skin lesions, or other. Neurologic: Denies weakness, headache, numbness, change in speech, confusion, seizures, incoordination. Psychiatric: No concerning psychosocial issues. 12-point review of systems is negative except for those stated above. PFSH <SIR[facility] Camacho - Last Filed: 06/11/19 02:20> Medical History Chronic thoracic spine pain (Acute) Dyspepsia (Acute) History of rib fracture (Acute) History of stroke (Acute) Hx of angioedema (Acute) Hypertension (Acute) Injury of hip, right (Acute) Intermittent lightheadedness (Acute) Surgical History History of Blanche fundoplication (Acute) History of eye surgery (Acute) History of splenectomy (Acute) Status post cervical spinal fusion (Acute) Family History Father Congestive heart failure Lymph edema Mother Perforated sigmoid colon Brother Stroke Sister Hypertension Social History household members: family and children Smoking Status: Current every day smoker Family History Father Congestive heart failure Lymph edema Mother Perforated sigmoid colon Brother Stroke Sister Hypertension Social History household members: family and children Smoking Status: Current every day smoker Exam <SIRIA Camacho - Last Filed: 06/11/19 02:20> Narrative Exam Narrative: GEN: Alert, oriented x 3, well appearing and nourished, and in no acute distress. Head: Normal cephalic, atraumatic. No scalp or temporal tenderness, palpable mass or rash. EYES: Pupils are equal, round, and reactive to light and accommodation. There is no subconjunctival hemorrhage, exudate and sclera non-icteric. ENT: Hearing grossly intact. Nose without bleeding, purulent discharge. Mucous membrane moist, no mucosal lesion. Throat without erythema, tonsillar hypertrophy or exudate. Uvula in midline, airway patent. Neck: Trachea in midline. No JVD, non-tender without lymphadenopathy. No masses or thyroid megaly. Supple, non-tender and no meningeal signs. CARDIAC: Normal regular rate and rhythm without murmurs, gallops, or rubs. No chest wall tenderness. No peripheral edema, cyanosis or pallor. Capillary refill is less than 2 seconds. RESPIRATORY: Lungs are cleat to auscultate bilaterally. No cough, wheezes, rales, or rhonchi. No stridor, respiratory distress, increase work of breathing, or accessary muscle used. ABD: Abdomen soft and non-distended. RLQ pain with palpation. No guarding or rebound tenderness to palpate. Bowel sounds are normal in all 4 quadrants. There is no palpable masses or organomegaly. EXT: Full painless ROM of all extremities with no loss of sensation, strength, effusion or edema. SKIN: Warm, dry, normal color for patient. No erythema, lesions or rash over visible areas. BACK: Nontender without deformity or crepitance. Reports R flank tenderness. NEUROLOGICAL: Alert and oriented to place, time and person. Sensation and motor function intact bilaterally. No facial droops, dysphasia. PSYCHIATRIC: Good judgement and reason, without hallucinations, abnormal affect or abnormal behaviors during the examination. Initial Vital Signs Initial Vital Signs: Vital Signs Temperature 99.1 F 06/10/19 11:40 Pulse Rate 97 H 06/10/19 11:40 Respiratory Rate 22 06/10/19 11:40 Pulse Oximetry 97 06/10/19 11:40 <Shannon Garcia MD - Last Filed: 06/13/19 07:09> Initial Vital Signs Initial Vital Signs: Vital Signs Temperature 99.1 F 06/10/19 11:40 Pulse Rate 97 H 06/10/19 11:40 Respiratory Rate 22 06/10/19 11:40 Pulse Oximetry 97 06/10/19 11:40 Course <SIRIA Camacho - Last Filed: 06/11/19 02:20> Orders Ordered: Discontinued Medications Al Hydrox/Mg Hydrox/Simethicone 20 ml/ Lidocaine HCl 15 ml 0 ml PO NOW ONE Stop: 06/10/19 14:31 Last Admin: 06/10/19 14:37 Dose: 35 ml Documented by: DANNY Sodium Chloride (Normal Saline 0.9%) 1,000 mls @ 1,000 mls/hr IV BOLUS ONE Stop: 06/10/19 13:03 Last Infusion: 06/10/19 13:19 Dose: 0 mls/hr Documented by: Admin: 06/10/19 12:10 Dose: 1,000 mls/hr Documented by: JAQUELINE Ketorolac Tromethamine (Toradol) 30 mg IV NOW ONE Stop: 06/10/19 13:15 Last Admin: 06/10/19 13:22 Dose: 30 mg Documented by: JAQUELINE Pantoprazole Sodium (Protonix) 40 mg IV NOW ONE Stop: 06/10/19 14:31 Last Admin: 06/10/19 14:37 Dose: 40 mg Documented by: DANNY Vital Signs - 8 hr 06/10/19 11:40 Temperature 99.1 F Pulse Rate 97 H Respiratory Rate 22 Pulse Oximetry 97 <Shannon Garcia MD - Last Filed: 06/13/19 07:09> Orders Ordered: Discontinued Medications Al Hydrox/Mg Hydrox/Simethicone 20 ml/ Lidocaine HCl 15 ml 0 ml PO NOW ONE Stop: 06/10/19 14:31 Last Admin: 06/10/19 14:37 Dose: 35 ml Documented by: DANNY Sodium Chloride (Normal Saline 0.9%) 1,000 mls @ 1,000 mls/hr IV BOLUS ONE Stop: 06/10/19 13:03 Last Infusion: 06/10/19 13:19 Dose: 0 mls/hr Documented by: Admin: 06/10/19 12:10 Dose: 1,000 mls/hr Documented by: JAQUELINE Ketorolac Tromethamine (Toradol) 30 mg IV NOW ONE Stop: 06/10/19 13:15 Last Admin: 06/10/19 13:22 Dose: 30 mg Documented by: JAQUELINE Pantoprazole Sodium (Protonix) 40 mg IV NOW ONE Stop: 06/10/19 14:31 Last Admin: 06/10/19 14:37 Dose: 40 mg Documented by: DANNY Vital Signs - 8 hr 06/10/19 11:40 Temperature 99.1 F Pulse Rate 97 H Respiratory Rate 22 Pulse Oximetry 97 MDM - Abdominal Pain <Kai SIRIA Weller - Last Filed: 06/11/19 02:20> Differential Diagnosis Differential diagnosis: Likely abdominal pain, acute appendicitis, calculus of kidney, diverticulitis and gastroenteritis Medical Records Attestation: I reviewed the patient's medical records. Lab Data Attestation: I reviewed the patient's lab results. Result diagrams: 06/10/19 11:45 06/10/19 11:45 Lab Results 06/10/19 06/10/19 06/10/19 Range/Units 11:45 11:45 11:45 WBC 9.3 (4.5-11.0) X10^3/uL RBC 5.85 (4.5-5.9) X10^6/uL Hgb 19.3 H (13.5-17.5) g/dL Hct 54.3 H (41-53) % MCV 92.8 (80-100) fL MCH 32.9 (26-34) PG MCHC 35.5 (30-36) % RDW 13.8 (11.6-14.8) % Plt Count 163 (150-400) X10^3/uL Total Counted 100 Seg Neutrophils % 84.0 H (38-70) % Lymphocytes % (Manual) 6.0 L (25-45) % Monocytes % (Manual) 8.0 (2-11) % Eosinophils % (Manual) 1.0 L (2-4) % Basophils % (Manual) 1.0 (0-1) % Neutrophils # (Manual) 7812 H (4541-4197) /uL RBC Morphology Normal morphology Sodium 141 (137-145) mmol/L Potassium 4.0 (3.4-5.1) mmol/L Chloride 105 (98-107) mmol/L Carbon Dioxide 26 (22-32) mmol/L BUN 15 (9-20) mg/dL Creatinine 1.00 (0.66-1.25) mg/dL Estimated GFR > 60.0 (>60) mL/min BUN/Creatinine Ratio 15.0 (6-22) Glucose 112 H (70-100) mg/dL Calcium 9.5 (8.4-10.2) mg/dL Total Bilirubin 1.2 (0.2-1.3) mg/dL AST 32 (17-59) IU/L ALT 40 (21-72) IU/L Alkaline Phosphatase 78 (38-126) U/L Total Creatine Kinase 47 L (55-170) U/L CK-MB (CK-2) TNP CK-MB (CK-2) Rel Index TNP Troponin I < 0.012 (0.01-0.034) ng/mL Total Protein 7.4 (6.3-8.2) g/dL Albumin 4.3 (3.5-5.0) g/dL Globulin 3.1 (1.7-4.1) g/dL Albumin/Globulin Ratio 1.4 (1.0-2.8) Lipase 109 (23-300) U/L ECG Data Attestation: I personally reviewed and interpreted this ECG as follows: Prior ECG tracings: available for review Interpretation: Normal sinus rhythm rate at 71, Normal axis. No ST elevation or depression. No changes from previous EKG. MDM Narrative Medical decision making narrative: This patient is nontoxic appearance with the report 3 day duration of right lower quadrant pain without constitutional symptoms and loose stool. The patient denies urinary symptoms or hematuria. Initially, patient reported the pain was only in right lower quadrant pain. During physical exam, patient reports right lower quadrant pain with palpation and right flank pain with percussion. The patient's blood test including CBC and chemistry were unremarkable except mildly elevated H&H. CT of abdomen pelvis showed no acute findings except possibly very early colitis and there is no inflammatory changes with colonic diverticula in sigmoid colon. When these were shared with the patient, patient stays was having burning sensation in his epigastric area as well and is requesting for GI cocktail. The patient was hydrated with 1 L normal saline. Additional EKG odor and cardiac enzymes were added. EKG showed normal sinus rhythm with negative cardiac enzymes. Patient reports his discomfort has improved after medicated. Patient was has rated with Patient was advised to follow up with his primary care physician in 2-3 days. We discussed in length of about return precautions. Patient was discharged to home with [facility] for abdominal for cramping discomfort. Patient agrees with treatment plan and no further questions were expressed. <Shannon Garcia MD - Last Filed: 06/13/19 07:09> Lab Data Lab Results 06/10/19 06/10/19 06/10/19 Range/Units 11:45 11:45 11:45 WBC 9.3 (4.5-11.0) X10^3/uL RBC 5.85 (4.5-5.9) X10^6/uL Hgb 19.3 H (13.5-17.5) g/dL Hct 54.3 H (41-53) % MCV 92.8 (80-100) fL MCH 32.9 (26-34) PG MCHC 35.5 (30-36) % RDW 13.8 (11.6-14.8) % Plt Count 163 (150-400) X10^3/uL Total Counted 100 Seg Neutrophils % 84.0 H (38-70) % Lymphocytes % (Manual) 6.0 L (25-45) % Monocytes % (Manual) 8.0 (2-11) % Eosinophils % (Manual) 1.0 L (2-4) % Basophils % (Manual) 1.0 (0-1) % Neutrophils # (Manual) 7812 H (7945-5148) /uL RBC Morphology Normal morphology Sodium 141 (137-145) mmol/L Potassium 4.0 (3.4-5.1) mmol/L Chloride 105 (98-107) mmol/L Carbon Dioxide 26 (22-32) mmol/L BUN 15 (9-20) mg/dL Creatinine 1.00 (0.66-1.25) mg/dL Estimated GFR > 60.0 (>60) mL/min BUN/Creatinine Ratio 15.0 (6-22) Glucose 112 H (70-100) mg/dL Calcium 9.5 (8.4-10.2) mg/dL Total Bilirubin 1.2 (0.2-1.3) mg/dL AST 32 (17-59) IU/L ALT 40 (21-72) IU/L Alkaline Phosphatase 78 (38-126) U/L Total Creatine Kinase 47 L (55-170) U/L CK-MB (CK-2) TNP CK-MB (CK-2) Rel Index TNP Troponin I < 0.012 (0.01-0.034) ng/mL Total Protein 7.4 (6.3-8.2) g/dL Albumin 4.3 (3.5-5.0) g/dL Globulin 3.1 (1.7-4.1) g/dL Albumin/Globulin Ratio 1.4 (1.0-2.8) Lipase 109 (23-300) U/L Discharge Plan Departure Patient Disposition: Home Clinical Impression: Gastroenteritis Abdominal pain Qualifiers: Abdominal location: generalized Qualified Code(s): R10.84 - Generalized abdominal pain Discharge Date/Time: 06/10/19 15:35 Instructions: DI for Abdominal Pain-Adult, DI for Colitis Activity Restrictions/Additional Instructions: You have been diagnosed with [abdominal discomfort in epigastric and right lower quadrant, diarrhea, possible very early colitis. The blood test including cardiac enzyme and abdominal enzyme and CT scan tests were unremarkable. The Hgb and Hct tests were mildly elevated today. We have hydrated your with 1 liter of NS while in ED.]. What to do: *Take your medications as directed. Bentyl medications ordered for abdominal cramping pain you can use this twice a day as needed for pain. 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 *Follow up with your primary care provider in 2-3 days, call for an appointment. Let them know you were seen in the ED and that we asked you to be seen in follow up. *Return to ED if you have any new, worsening, or concerning symptoms, such as [increasing abdominal pain, fever, chills, unable to tolerate fluids, frequent stooling, blood in her stool, chest pain, breathing difficulty, any acute concerns]. Prescriptions: New dicyclomine 10 mg capsule 20 mg PO BID PRN (Reason: Abdominal cramping) Qty: 10 RF: 0 No Action hydrochlorothiazide 25 mg tablet 25 mg PO QAM RF: 0 Referrals: Adán Holman [Primary Care Provider] -
[2019-06-10] MEDS: SODIUM CHLORIDE 0.9% 1,000 ML 1000 ML IV (12:10)
--- NOTE | 2019-06-10 12:19 | DI.CT.S_ITS ---
PROCEDURE: CT ABDOMEN PELVIS W CON INDICATIONS: RLQ pain TECHNIQUE: After the administration of intravenous contrast, 5 mm thick sections acquired from the diaphragm to the symphysis. 5 mm coronal and sagittal reformats were acquired. For radiation dose reduction, the following was used: automated exposure control, adjustment of mA and/or kV according to patient size. COMPARISON: [facility], CT, ABDOMEN/PELVIS WITH CONTRAST, 12/02/2010, 12:07. [facility], CT, CT ABDOMEN PELVIS WITH CONTRAST, 08/22/2017, 22:34. FINDINGS: Image quality: Excellent. ABDOMEN: Lung bases: Lung bases are clear. Heart size is normal. Solid organs: Liver is normal in size and enhancement. Hepatic steatosis is present. Gallbladder is unremarkable. Biliary system is non dilated. Pancreas enhances normally. Spleen is normal in size and enhancement. No adrenal nodules. Kidneys demonstrate normal size and enhancement, without hydronephrosis. As the left kidney. Peritoneum and bowel: Bowel loops demonstrate normal wall thickness and caliber. No free fluid or air. The appendix is not definitively identified. No right lower quadrant inflammatory change. Colonic diverticula are present. No inflammation. There is a mild appearance of thickening within the sigmoid colon. Nodes and vessels: No retroperitoneal or mesenteric adenopathy by size criteria. Aorta and inferior vena cava are normal in size. Miscellaneous: No ventral hernias. PELVIS: Genitourinary: Bladder wall thickness is normal. Miscellaneous: No inguinal hernias or adenopathy. Bones: No suspicious bony lesions. No vertebral body compression fractures. IMPRESSION: 1. Colonic diverticula with a mild appearance of thickening within the sigmoid colon. No inflammatory change. This could be related to incomplete distention or potentially very early colitis. Dictated by: Anna Herzog M.D. on 06/10/2019 at 13:14 Approved by: Anna Herzog M.D. on 06/10/2019 at 13:21
[2019-06-10 12:20] LABS: Neutrophils Absolute Manual 7812 /uL (3000-5900); Total Cells Counted 100
[2019-06-10 12:21] LABS: RBC Morphology Normal Morphology
[2019-06-10 13:00] VITALS: BP 136/95; PULSE 77; RESP 17; O2SAT 96
[2019-06-10] MEDS: KETOROLAC 60 MG/2 ML VIAL 30 MG IV (13:22)
[2019-06-10 14:00] VITALS: BP 137/93; PULSE 66; RESP 15; O2SAT 98
[2019-06-10] MEDS: MAG HYDROX/ALUMINUM/SIMETH SUS 20 ML, LIDOCAINE VISCOUS 2% 15 ML PO (14:37)
[2019-06-10] MEDS: PANTOPRAZOLE 40 MG VIAL IV (14:37)
[2019-06-10 14:48] LABS: Creatine Kinase 47 U/L (55-170)
[2019-06-10 15:00] LABS: Troponin I < 0.012 ng/mL (0.01-0.034)
[2019-06-10 15:23] VITALS: BP 138/97; PULSE 69; RESP 17; O2SAT 98
== END 2019-06-10 15:35 | disposition home or self-care (01) ==
PROVIDERS: Emergency Provider Nurse Practitioner Family; PCP Physician Assistant Medical
DX: K52.9 Noninfective gastroenteritis and colitis, unspecified (principal); R10.84 Generalized abdominal pain; R00.2 Palpitations
CPT/HCPCS: 36591; 74177; 80053; 82550; 83690; 84484; 85025; 93005; 96361; 96374; 96375; 99283; 99285; C9113; J1885

== ENCOUNTER 2019-06-27 21:13 | Emergency (ER) | payer MEDICARE, MEDICAID, OTHER, SELFPAY ==
[2018-08-01 09:00] VITALS: PULSE 43; RESP 16; O2SAT 96
[2019-06-27 21:15] VITALS: BP 132/95; PULSE 78; RESP 18; TEMP 36.5; O2SAT 96
[2019-06-27 21:53] LABS: Prothrombin Time 11.6 SECONDS (10.1-12.7)
[2019-06-27 21:56] LABS: Add Manual Diff / Slide Review NO; Basophils Absolute Auto 100 /uL (0-100); Basophils Percent Auto 0.5 % (0-2); Eosinophils Absolute Auto 200 /uL (0-450); Hematocrit 54.3 % (41-53); Lymphocytes Absolute Auto 2100 /uL (1100-4500); Lymphocytes Percent Auto 18.3 % (25-40); Mean Corpuscular HGB Conc 35.1 % (30-36); Mean Corpuscular Hemoglobin 32.8 PG (26-34); Mean Corpuscular Volume 93.5 fL (80-100); Monocytes Absolute Auto 700 /uL (0-900); Monocytes Percent Auto 6.3 % (3-14); Neutrophils Absolute Auto 8200 /uL (1500-7000); Neutrophils Percent Auto 72.9 % (50-75); PTT Partial Thromboplastin Tim 31 SECONDS (26.4-36.2); Platelet Count 164 X10^3/uL (150-400); Red Blood Cell Count 5.81 X10^6/uL (4.5-5.9); Red Cell Distribution Width 13.6 % (11.6-14.8); White Blood Cell Count 11.3 X10^3/uL (4.5-11.0)
[2019-06-27 22:05] LABS: Alanine Aminotransferase 29 IU/L (21-72); Albumin 4.1 g/dL (3.5-5.0); Albumin Globulin Ratio 1.5 (1.0-2.8); Alkaline Phosphatase 71 U/L (38-126); Aspartate Aminotransferase 32 IU/L (17-59); BUN Creatinine Ratio 16.7 (6-22); Bilirubin Total 1.2 mg/dL (0.2-1.3); Blood Urea Nitrogen 15 mg/dL (9-20); Calcium 9.5 mg/dL (8.4-10.2); Carbon Dioxide 27 mmol/L (22-32); Chloride 103 mmol/L (98-107); Estimated Glomerular Filt Rate > 60.0 mL/min (>60); Globulin 2.7 g/dL (1.7-4.1); Glucose 93 mg/dL (70-100); Lipase 78 U/L (23-300); Potassium 3.8 mmol/L (3.4-5.1); Sodium 137 mmol/L (137-145); Total Protein 6.8 g/dL (6.3-8.2)
[2019-06-27 22:06] LABS: HEMOLYSIS 62 (0-50)
--- NOTE | 2019-06-27 22:59 | ED.HA ---
HPI - Headache General Chief Complaint: Headache Stated Complaint: stomach pain Time Seen by Provider: 06/27/19 22:43 Source: patient Mode of arrival: ambulatory Limitations: no limitations History of Present Illness HPI Narrative: 59-year-old female here for evaluation of multiple complaints. He describes left-sided neck pain and headache. This is not new for him however states it has been worse over the past couple days. No fevers. He is also here for epigastric and right-sided abdominal pain. He was seen approximately 2 weeks ago and had ultrasound and CT scan for right-sided abdominal pain but he states this is different from that episode. He has had a Blanche fundoplication in the past is not currently on any reflux medications. Has not tried anything for symptoms prior to arrival Related Data Home Medications Medication Instructions Recorded Confirmed hydrochlorothiazide 25 mg PO QAM 06/10/19 06/10/19 Previous Rx's Medication Instructions Recorded dicyclomine 20 mg PO BID PRN #10 cap 06/10/19 sucralfate [Carafate] 10 ml PO QID #420 ml 06/28/19 Allergies Allergy/AdvReac Type Severity Reaction Status Date / Time lisinopril Allergy Severe Swelling Verified 04/21/19 20:22 of Lip/Tongue/Throat citalopram [CITALOPRAM] Allergy Unknown SEIZURES Verified 04/21/19 20:22 hydrocodone [HYDROCODONE] AdvReac Mild N/V Verified 04/21/19 20:22 Review of Systems Constitutional Constitutional: Denies fever(s) and Reports headache(s) ENT Ears, Nose, Mouth, and Throat: Reports headache(s) and Reports neck pain Cardiovascular Cardiovascular: Denies chest pain and Denies dyspnea Respiratory Respiratory: Denies dyspnea Gastrointestinal Gastrointestinal: Reports abdominal pain, Denies change in stool character, Reports nausea and Denies vomiting Genitourinary Genitourinary: Denies dysuria Musculoskeletal Musculoskeletal: Denies back pain and Reports neck pain Integumentary/Breasts Skin/Breast: Denies lesions and Denies rash Neurologic Neurologic: Denies behavioral changes and Reports headache(s) Psychiatric Psychiatric: Denies behavioral changes Hematologic/Lymphatic Hematologic/Lymphatic: Denies easy bleeding and Denies easy bruising [facility] Medical History Chronic thoracic spine pain (Acute) Dyspepsia (Acute) History of rib fracture (Acute) History of stroke (Acute) Hx of angioedema (Acute) Hypertension (Acute) Injury of hip, right (Acute) Intermittent lightheadedness (Acute) Social History household members: family and children Smoking Status: Current every day smoker Exam Initial Vital Signs Initial Vital Signs: Vital Signs Temperature 97.7 F 06/27/19 21:15 Pulse Rate 78 06/27/19 21:15 Respiratory Rate 18 06/27/19 21:15 Blood Pressure 132/95 H 06/27/19 21:15 Pulse Oximetry 96 06/27/19 21:15 Const General: cooperative, comfortable, well developed and well groomed Orientation: alert and oriented x3 HENMT Head: normal to inspection and normocephalic Resp Effort & Inspection: normal respiratory effort Auscultation: clear to auscultation bilaterally Cardio Rate: regular rate Rhythm: regular rhythm GI Inspection: non-distended Palpation: soft, No firm and tender (Epigastric and right-sided abdomen) Skin Lesions: no lesions Rashes: no rashes Neuro General: alert and awake Cognition: normal cognition Speech: speech normal Extrem General: normal to inspection and capillary refill normal Psych Appearance: grossly normal and well kempt Course Orders Ordered: ED Orders 06/27/19 21:30 Complete Blood Count AUTO DIFF Stat Comprehensive Metabolic Panel Stat Lipase Stat Partial Thromboplastin Time Stat Prothrombin Time INR Stat 06/27/19 21:48 EKG-12 Lead Stat Discontinued Medications Al Hydrox/Mg Hydrox/Simethicone 20 ml/ Lidocaine HCl 15 ml 0 ml PO NOW ONE Stop: 06/27/19 23:01 Last Admin: 06/27/19 23:25 Dose: 35 ml Documented by: IVETTE Hydromorphone HCl (Dilaudid) 1 mg IV NOW ONE Stop: 06/27/19 23:01 Last Admin: 06/27/19 23:26 Dose: 1 mg Documented by: IVETTE Ondansetron HCl (Zofran) 4 mg IV NOW ONE Stop: 06/27/19 23:01 Last Admin: 06/27/19 23:26 Dose: 4 mg Documented by: IVETTE Pantoprazole Sodium (Protonix) 40 mg IV NOW ONE Stop: 06/27/19 23:01 Last Admin: 06/27/19 23:26 Dose: 40 mg Documented by: IVETTE Vital Signs Vital signs: Vital Signs - 8 hr 06/27/19 21:15 06/28/19 00:54 Temperature 97.7 F Pulse Rate 78 70 Respiratory Rate 18 15 Blood Pressure 132/95 H 140/97 H Pulse Oximetry 96 94 MDM - Headache Lab Data Attestation: I reviewed the patient's lab results. Result diagrams: 06/27/19 21:30 06/27/19 21:30 Labs: Lab Results 06/27/19 06/27/19 06/27/19 Range/Units 21:30 21:30 21:30 WBC 11.3 H (4.5-11.0) X10^3/uL RBC 5.81 (4.5-5.9) X10^6/uL Hgb 19.0 H (13.5-17.5) g/dL Hct 54.3 H (41-53) % MCV 93.5 (80-100) fL MCH 32.8 (26-34) PG MCHC 35.1 (30-36) % RDW 13.6 (11.6-14.8) % Plt Count 164 (150-400) X10^3/uL Neut % (Auto) 72.9 (50-75) % Lymph % (Auto) 18.3 L (25-40) % [place] % (Auto) 6.3 (3-14) % Eos % (Auto) 2.0 (2-4) % Baso % (Auto) 0.5 (0-2) % Neut # (Auto) 8200 H (7935-2607) /uL Lymph # (Auto) 2100 (3415-3076) /uL [place] # (Auto) 700 (0-900) /uL Eos # (Auto) 200 (0-450) /uL Baso # (Auto) 100 (0-100) /uL PT 11.6 (10.1-12.7) SECONDS INR 1.0 (0.9-1.3) APTT 31 (26.4-36.2) SECONDS Sodium 137 (137-145) mmol/L Potassium 3.8 (3.4-5.1) mmol/L Chloride 103 (98-107) mmol/L Carbon Dioxide 27 (22-32) mmol/L BUN 15 (9-20) mg/dL Creatinine 0.90 (0.66-1.25) mg/dL Estimated GFR > 60.0 (>60) mL/min BUN/Creatinine Ratio 16.7 (6-22) Glucose 93 (70-100) mg/dL Calcium 9.5 (8.4-10.2) mg/dL Total Bilirubin 1.2 (0.2-1.3) mg/dL AST 32 (17-59) IU/L ALT 29 (21-72) IU/L Alkaline Phosphatase 71 (38-126) U/L Total Protein 6.8 (6.3-8.2) g/dL Albumin 4.1 (3.5-5.0) g/dL Globulin 2.7 (1.7-4.1) g/dL Albumin/Globulin Ratio 1.5 (1.0-2.8) Lipase 78 (23-300) U/L ECG Data Attestation: I personally reviewed and interpreted this ECG as follows: Prior ECG tracings: not available for review Interpretation: Sinus rhythm Ventricular rate is 72 Normal QRS Normal QTC Nonspecific ST T wave changes MDM Narrative Medical decision making narrative: Patient has a benign abdomen. He reported improvement of his symptoms after medicines here in the ER. I do have strong suspicion that this was GI related. I also have a strong suspicion that he may have prolonged excessive alcohol use. We discussed the use of H2 blockers versus PPI's. He does not want to take any of these medications. Unsure of the exact reason for his resistance these medications when he stated multiple times that he does not want to take these. He was okay with a prescription for Carafate. He is going to contact his primary provider for follow-up and discuss the indications for referral to see GI. He was given return precautions. He expressed understanding and agreement with plan. Discharge Plan Departure Patient Disposition: Home Clinical Impression: Chronic neck pain Abdominal pain Qualifiers: Abdominal location: epigastric Qualified Code(s): R10.13 - Epigastric pain Discharge Date/Time: 06/28/19 00:54 Instructions: Gastroesophageal Reflux Disease (Alternative Therapy) Activity Restrictions/Additional Instructions: I do recommend you talk with your primary provider about the indications for referral to see Gastroenterology. Take the medications as directed. Return to the emergency department for any new or worsening symptoms Prescriptions: New sucralfate [Carafate] 100 mg/mL suspension 10 ml PO QID Qty: 420 RF: 0 No Action hydrochlorothiazide 25 mg tablet 25 mg PO QAM RF: 0 dicyclomine 10 mg capsule 20 mg PO BID PRN (Reason: Abdominal cramping) Qty: 10 RF: 0 Referrals: Adán Holman [Primary Care Provider] -
[2019-06-27] MEDS: MAG HYDROX/ALUMINUM/SIMETH SUS 20 ML, LIDOCAINE VISCOUS 2% 15 ML PO (23:25)
[2019-06-27] MEDS: PANTOPRAZOLE 40 MG VIAL IV (23:26)
[2019-06-27] MEDS: ONDANSETRON 4 MG/2 ML INJ IV (23:26)
[2019-06-27] MEDS: HYDROMORPHONE 1 MG INJ IV (23:26)
[2019-06-28 00:54] VITALS: BP 140/97; PULSE 70; RESP 15; O2SAT 94
== END 2019-06-28 00:54 | disposition home or self-care (01) ==
PROVIDERS: Emergency Provider Emergency Medicine; PCP Physician Assistant Medical
DX: M54.2 Cervicalgia (principal); G89.29 Other chronic pain; R10.13 Epigastric pain
CPT/HCPCS: 36591; 80053; 83690; 85025; 85610; 85730; 93005; 93010; 96374; 96375; 99282; 99284; C9113; J1170; J2405

== ENCOUNTER 2019-08-07 21:23 | Emergency (ER) | payer MEDICARE, MEDICAID, SELFPAY ==
[2018-08-01 09:00] VITALS: PULSE 43; RESP 16; O2SAT 96
[2019-08-07 21:15] VITALS: PULSE 77
[2019-08-07 21:33] VITALS: BP 137/93; PULSE 75; RESP 20; TEMP 36.9; O2SAT 96
--- NOTE | 2019-08-07 22:47 | DI.CT.S_ITS ---
PROCEDURE: CT CERVICAL SPINE WO CON INDICATIONS: worsening neck pain TECHNIQUE: Noncontrast 3 mm thick sections acquired from the skull base to the T4 level. Sagittal and coronal reformats were then constructed. For radiation dose reduction, the following was used: automated exposure control, adjustment of mA and/or kV according to patient size. COMPARISON: [facility], CT, C-SPINE WITHOUT CONTRAST, 03/04/2017, 2:26. [facility], CR, CERVICAL SPINE 4 OR 5 VIEWS, 09/12/2017, 10:02. [facility], CR, XR CERVICAL SPINE 2V OR 3V, 04/10/2018, 10:40. FINDINGS: Image quality: Excellent. Bones: No fractures or dislocations. Extensive post surgical changes in the cervical spine with discectomy and laminectomy at C3-C4, C4-C5, C5-C6 and C6-C7, as well as posterior fusion at C2-C7. Metallic artifacts partially obscure corresponding areas. Visualized superior ribs are intact. Soft tissues: Prevertebral soft tissues are normal in thickness. No paravertebral hematomas. No apical pneumothoraces. IMPRESSION: 1. No acute abnormalities. 2. Extensive postsurgical changes in cervical spine. No significant discrepancy with the maintenance supervisor 2nd shift radiology preliminary report. Dictated by: Sera Kennedy M.D. on 08/08/2019 at 7:16 Approved by: Sera Kennedy M.D. on 08/08/2019 at 7:21
--- NOTE | 2019-08-07 22:47 | DI.CT.S_ITS ---
PROCEDURE: CT HEAD/BRAIN WO CON INDICATIONS: blurring vision, right face tingling TECHNIQUE: Noncontrast 4.5 mm thick angled axial sections acquired from the foramen magnum to the vertex, with coronal and sagittal reformats. For radiation dose reduction, the following was used: automated exposure control, adjustment of mA and/or kV according to patient size. COMPARISON: [facility], CT, HEAD AND NECK ANGIO, 03/12/2017, 17:24. [facility], CT, HEAD WITHOUT CONTRAST, 03/02/2017, 20:42. FINDINGS: Image quality: Excellent. CSF spaces: Basal cisterns are patent. No extra-axial fluid collections. Ventricles are normal in size and shape. Brain: No midline shift. No intracranial masses or hemorrhage. Raygoza-white matter interface is normal. Skull and face: Calvarium and visualized facial bones are intact, without suspicious lesions. Sinuses: Visualized sinuses and mastoids are clear. IMPRESSION: 1. No acute intracranial abnormalities. No significant discrepancy with the night patrol inspector radiology preliminary report. Dictated by: Sera Kennedy M.D. on 08/08/2019 at 7:14 Approved by: Sera Kennedy M.D. on 08/08/2019 at 7:16
--- NOTE | 2019-08-07 22:50 | ED_ITS ---
HPI - Extremity Problem General Chief complaint: Extremity Problem,Nontraumatic Stated complaint: Right arm numbness Time Seen by Provider: 08/07/19 22:12 Source: patient Mode of arrival: EMS Limitations: no limitations History of Present Illness HPI Narrative: Patient is a 59-year-old male with chronic ongoing neck pain he states it has been there since he was intubated a year ago for angioedema. He actually has had chronic neck pain longer than that he had an injury 2 years ago and required surgery. He says for about 1 year now he has had intermittent weakness in his arms she has had ongoing neck pain he feels dizzy and lightheaded at times. Today he feels like he has some numbness in the right side of his face which he says has been ongoing for about 1 month. He also has numbness in his right arm which started his elbow and goes down to his pinky and 4th finger. He says that actually comes and goes and is not currently present. Is no weakness in his hands now. He has no chest pain or heart palpitations. He says whenever he turns his head a can make his symptoms worse. He is also complaining of some blurry vision off and on. Related Data Home Medications Medication Instructions Recorded Confirmed hydrochlorothiazide 25 mg PO QAM 06/10/19 06/10/19 Previous Rx's Medication Instructions Recorded dicyclomine 20 mg PO BID PRN #10 cap 06/10/19 sucralfate [Carafate] 10 ml PO QID #420 ml 06/28/19 Allergies Allergy/AdvReac Type Severity Reaction Status Date / Time lisinopril Allergy Severe Swelling Verified 04/21/19 20:22 of Lip/Tongue/Throat citalopram [CITALOPRAM] Allergy Unknown SEIZURES Verified 04/21/19 20:22 hydrocodone [HYDROCODONE] AdvReac Mild N/V Verified 04/21/19 20:22 Review of Systems Review of Systems ROS Unobtainable: All systems reviewed & are unremarkable except as noted in HPI and below Constitutional Constitutional: Denies chills, Denies fever(s), Denies lethargy and Denies weakn ess ENT Ears, Nose, Mouth, and Throat: Reports neck pain Cardiovascular Cardiovascular: Denies chest pain, Denies syncope, Denies lightheadedness, Denies dyspnea and Denies dyspnea on exertion Respiratory Respiratory: Denies cough, Denies dyspnea, Denies dyspnea on exertion and Denies wheezing Gastrointestinal Gastrointestinal: Denies abdominal pain, Denies change in bowel habits, Denies d iarrhea, Denies nausea and Denies vomiting Musculoskeletal Musculoskeletal: Reports as per HPI, Denies back pain, Denies muscle weakness, Reports neck pain, Denies numbness and Denies tingling Integumentary/Breasts Skin/Breast: Denies pruritus, Denies erythema, Denies rash and Denies wounds Neurologic Neurologic: Denies syncope, Denies numbness, Denies tingling and Denies weakness Allergic/Immunologic Allergic/Immunologic: Denies wheezing Patient History Social History household members: family and children Smoking Status: Current every day smoker alcohol intake frequency: 0-2 drinks per day Substance Use Type: does not use Exam Initial Vital Signs Initial Vital Signs: Vital Signs Pulse Rate 77 08/07/19 21:15 GENERAL: Well-appearing, well-nourished and in no acute distress. HEENT: Head atraumatic,EOMI, pupils reactive, face symmetric, moist mucous membranes CARDIOVASCULAR: Regular rate and rhythm without murmurs, rubs or gallops. RESPIRATORY: Breath sounds equal bilaterally, no wheezes rales or rhonchi. ABDOMEN: Soft, nontender. Normoactive bowel sounds all 4 quadrants. No guarding or rebound.ss EXTREMITIES: Normal range of motion, no clubbing or edema. Neurovascularly intact NEUROLOGICAL: Alert and oriented x4.Normal gait and speech. Cranial nerves II through XII grossly intact. Good [id number], good [id number], strength equal bilaterally, no dysarthria or aphasia, sensation in tact to soft touch bilaterally, no visual changes, no facial droop SKIN: Warm, dry, no laceration, no petechiae, no rashes or lesions. Scores NIH Stroke Scale Level of Conciousness: Alert, keenly responsive Ask month/age: Answers both questions correctly. Open/close eyes, close hand: Performs both tasks correctly Best gaze horizontal: Normal Visual lópez: No visual loss Facial palsy: Normal symetrical movement Left arm drift: No drift for full 10 sec Right arm drift: No drift for full 10 sec Left leg drift: No drift for full 10 sec Right leg drift: No drift for full 10 sec Limb ataxia: Absent Sensory on face/arms/legs: Normal, no sensory loss Best language: No aphasia, normal Dysarthria: Normal Extinction or inattention: No abnormality Total NIH Stroke scale score: 0 Course Orders Ordered: ED Orders 08/07/19 22:47 CT cervical spine wo con Stat CT head/brain wo con Stat 08/07/19 22:54 Complete Blood Count AUTO DIFF Stat Comprehensive Metabolic Panel Stat Discontinued Medications Ketorolac Tromethamine (Toradol) 30 mg IM NOW ONE Stop: 08/08/19 00:42 Last Admin: 08/08/19 00:46 Dose: 30 mg Documented by: YOSELYN Vital Signs Vital signs: Vital Signs - 8 hr 08/07/19 21:15 08/07/19 21:33 08/08/19 01:03 Temperature 98.4 F Pulse Rate 75 67 Pulse Rate [Right Radial] 77 Respiratory Rate 20 Blood Pressure 137/93 H 136/87 Pulse Oximetry 96 97 MDM - Extremity (Nontraumatic) Lab Data Attestation: I reviewed the patient's lab results. Result diagrams: 08/07/19 22:54 08/07/19 22:54 Labs: Lab Results 08/07/19 08/07/19 Range/Units 22:54 22:54 WBC 12.6 H (4.5-11.0) X10^3/uL RBC 5.90 (4.5-5.9) X10^6/uL Hgb 19.2 H (13.5-17.5) g/dL Hct 56.0 H (41-53) % MCV 94.9 (80-100) fL MCH 32.5 (26-34) PG MCHC 34.2 (30-36) % RDW 13.4 (11.6-14.8) % Plt Count 158 (150-400) X10^3/uL Neut % (Auto) 72.0 (50-75) % Lymph % (Auto) 16.1 L (25-40) % [place] % (Auto) 8.2 (3-14) % Eos % (Auto) 3.3 (2-4) % Baso % (Auto) 0.4 (0-2) % Neut # (Auto) 9000 H (0498-6493) /uL Lymph # (Auto) 2000 (9508-6054) /uL [place] # (Auto) 1000 H (0-900) /uL Eos # (Auto) 400 (0-450) /uL Baso # (Auto) 100 (0-100) /uL Sodium 138 (137-145) mmol/L Potassium 3.7 (3.4-5.1) mmol/L Chloride 104 (98-107) mmol/L Carbon Dioxide 27 (22-32) mmol/L BUN 12 (9-20) mg/dL Creatinine 0.90 (0.66-1.25) mg/dL Estimated GFR > 60.0 (>60) mL/min BUN/Creatinine Ratio 13.3 (6-22) Glucose 92 (70-100) mg/dL Calcium 9.3 (8.4-10.2) mg/dL Total Bilirubin 0.6 (0.2-1.3) mg/dL AST 29 (17-59) IU/L ALT 31 (21-72) IU/L Alkaline Phosphatase 80 (38-126) U/L Total Protein 7.5 (6.3-8.2) g/dL Albumin 4.4 (3.5-5.0) g/dL Globulin 3.1 (1.7-4.1) g/dL Albumin/Globulin Ratio 1.4 (1.0-2.8) Imaging Data CT scan - head: Radiologist's impression: Preliminary report no significant abnormalities CT cervical: Radiologist's impression: Preliminary report postsurgical findings without acute fracture MDM Narrative Medical decision making narrative: The patient is having chronic ongoing radiculopathy symptoms. He states that the pain in his neck that he has felt for a year he has felt for even longer than that. He intermittently has numbness and tingling along with weakness. Symptoms today do not seem to be new. He is asking for something for pain Tylenol or ibuprofen he is given Toradol. He states that he does not take pain medication at home he does not want pain medication. He has referral in to a neurologist. I do recommend that he get an outpatient MRI and see orthopedic surgery and spine. CT today does not show any signs of hardware failure. Discharge Plan Departure Patient Disposition: Home Clinical Impression: Cervical radiculopathy Discharge Date/Time: 08/08/19 01:07 Instructions: DI for Cervical Radiculopathy Activity Restrictions/Additional Instructions: *You have been diagnosed with cervical radiculopathy *What to do: At this time I do recommend that he have an outpatient MRI and that he be evaluated by your a spine surgeon. I think her symptoms are coming from your neck. *Continue to take medications as directed Tylenol 650 mg every 4-6 hours if needed for pain *Follow up with your primary care provider in 2-3 days *Return to ER if you should have increased weakness, increased pain or any new, worsening or concerning symptoms Prescriptions: No Action hydrochlorothiazide 25 mg tablet 25 mg PO QAM RF: 0 dicyclomine 10 mg capsule 20 mg PO BID PRN (Reason: Abdominal cramping) Qty: 10 RF: 0 sucralfate [Carafate] 100 mg/mL suspension 10 ml PO QID Qty: 420 RF: 0 Referrals: Adán Holman [Primary Care Provider] -
[2019-08-07 23:06] LABS: Add Manual Diff / Slide Review NO; Basophils Absolute Auto 100 /uL (0-100); Basophils Percent Auto 0.4 % (0-2); Eosinophils Absolute Auto 400 /uL (0-450); Eosinophils Percent Auto 3.3 % (2-4); Hemoglobin 19.2 g/dL (13.5-17.5); Lymphocytes Absolute Auto 2000 /uL (1100-4500); Lymphocytes Percent Auto 16.1 % (25-40); Mean Corpuscular HGB Conc 34.2 % (30-36); Mean Corpuscular Hemoglobin 32.5 PG (26-34); Mean Corpuscular Volume 94.9 fL (80-100); Monocytes Absolute Auto 1000 /uL (0-900); Monocytes Percent Auto 8.2 % (3-14); Neutrophils Absolute Auto 9000 /uL (1500-7000); Platelet Count 158 X10^3/uL (150-400); Red Cell Distribution Width 13.4 % (11.6-14.8); White Blood Cell Count 12.6 X10^3/uL (4.5-11.0)
[2019-08-07 23:11] LABS: Alanine Aminotransferase 31 IU/L (21-72); Albumin 4.4 g/dL (3.5-5.0); Albumin Globulin Ratio 1.4 (1.0-2.8); Alkaline Phosphatase 80 U/L (38-126); Aspartate Aminotransferase 29 IU/L (17-59); BUN Creatinine Ratio 13.3 (6-22); Bilirubin Total 0.6 mg/dL (0.2-1.3); Blood Urea Nitrogen 12 mg/dL (9-20); Calcium 9.3 mg/dL (8.4-10.2); Carbon Dioxide 27 mmol/L (22-32); Chloride 104 mmol/L (98-107); Estimated Glomerular Filt Rate > 60.0 mL/min (>60); Globulin 3.1 g/dL (1.7-4.1); Glucose 92 mg/dL (70-100); HEMOLYSIS 16 (0-50); Potassium 3.7 mmol/L (3.4-5.1); Sodium 138 mmol/L (137-145); Total Protein 7.5 g/dL (6.3-8.2)
[2019-08-08] MEDS: KETOROLAC 60 MG/2 ML VIAL 30 MG IM (00:46)
[2019-08-08 01:03] VITALS: BP 136/87; PULSE 67; O2SAT 97
== END 2019-08-08 01:07 | disposition home or self-care (01) ==
PROVIDERS: Emergency Provider Emergency Medicine; PCP Physician Assistant Medical
DX: M54.12 Radiculopathy, cervical region (principal)
CPT/HCPCS: 36415; 70450; 72125; 80053; 85025; 96372; 99282; 99284; J1885

== ENCOUNTER 2019-10-17 06:26 | Emergency (ER) | payer MEDICARE, MEDICAID, SELFPAY ==
[2018-08-01 09:00] VITALS: PULSE 43; RESP 16; O2SAT 96
[2019-10-17 06:32] VITALS: BP 141/98; PULSE 79; RESP 14; TEMP 36.8; O2SAT 96; BMI 30.4
--- NOTE | 2019-10-17 06:36 | PC.NURSE ---
Tongue appears normal but patient reports feels right side of tongue feels swollen.
--- NOTE | 2019-10-17 06:37 | ED_ITS ---
HPI - General Adult <Elroy Byrd DO - Last Filed: 10/22/19 18:40> General Chief complaint: Dental/Oral Stated complaint: Tongue swelling Time Seen by Provider: 10/17/19 06:26 Source: patient and EMS Mode of arrival: EMS Limitations: no limitations History of Present Illness HPI narrative: Patient is a 59-year-old male. Last year had 1 episodes of what sounds like a very severe form of angioedema most likely secondary to lisinopril. Required intubation and admission to the hospital. He is since stopped lisinopril. Has had 2 subsequent emergency department visits 1 of them when he was evaluated by myself for evaluation of left-sided tongue swelling. The 1st time I evaluated him he was admitted to the hospital for an airway watch. The 2nd time he was treated with medications for an allergic reaction was discharged home. He states he did see an machine operator transplanter last summer. He stated that the machine operator transplanter did not do any testing. He stated that the machine operator transplanter told him ?it's not food related because you did not break out into a rash ?he states that this morning he woke up feeling like the right side of his tongue was swollen. No problems breathing. No new exposures. He is unsure if it feels better now than what it did in the onset. Because of his prior history he called 911 to bring him into the emergency department. No intervention by EMS prior to arrival. Related Data Home Medications Medication Instructions Recorded Confirmed hydrochlorothiazide 25 mg PO QAM 06/10/19 10/17/19 Previous Rx's Medication Instructions Recorded dicyclomine 20 mg PO BID PRN #10 cap 06/10/19 sucralfate [Carafate] 10 ml PO QID #420 ml 06/28/19 prednisone 50 mg PO DAILY #5 tab 10/17/19 ranitidine HCl [Zantac] 150 mg PO BID #10 tab 10/17/19 Allergies Allergy/AdvReac Type Severity Reaction Status Date / Time lisinopril Allergy Severe Swelling Verified 04/21/19 20:22 of Lip/Tongue/Throat citalopram [CITALOPRAM] Allergy Unknown SEIZURES Verified 04/21/19 20:22 hydrocodone [HYDROCODONE] AdvReac Mild N/V Verified 04/21/19 20:22 Review of Systems <Elroy Byrd DO - Last Filed: 10/22/19 18:40> Constitutional Constitutional: Denies fatigue and Denies fever(s) ENT Ears, Nose, Mouth, and Throat: Denies sinus pressure, Denies sore throat, Denies throat swelling and Reports tongue swelling Cardiovascular Cardiovascular: Denies dyspnea Respiratory Respiratory: Denies cough and Denies dyspnea Gastrointestinal Gastrointestinal: Denies abdominal pain, Denies nausea and Denies vomiting Integumentary/Breasts Skin/Breast: Denies lesions and Denies rash Endocrine Endocrine: Denies fatigue Allergic/Immunologic Allergic/Immunologic: Denies throat swelling and Reports tongue swelling Patient History <Elroy Byrd DO - Last Filed: 10/22/19 18:40> Medical History Chronic thoracic spine pain (Acute) Dyspepsia (Acute) History of rib fracture (Acute) History of stroke (Acute) Hx of angioedema (Acute) Hypertension (Acute) Injury of hip, right (Acute) Intermittent lightheadedness (Acute) Surgical History History of eye surgery (Acute) History of Blanche fundoplication (Acute) History of splenectomy (Acute) Status post cervical spinal fusion (Acute) Family History Father Congestive heart failure Lymph edema Mother Perforated sigmoid colon Brother Stroke Sister Hypertension Social History household members: family and children Smoking Status: Current every day smoker Smoking Status: Current every day smoker alcohol intake frequency: 0-2 drinks per day Substance Use Type: does not use Exam <Elroy Byrd DO - Last Filed: 10/22/19 18:40> Initial Vital Signs Initial Vital Signs: Vital Signs Temperature 98.2 F 10/17/19 06:32 Pulse Rate 79 10/17/19 06:32 Respiratory Rate 14 10/17/19 06:32 Blood Pressure 141/98 H 10/17/19 06:32 Pulse Oximetry 96 10/17/19 06:32 Const General: cooperative, healthy appearing, comfortable and well developed Orientation: alert, awake and oriented x3 HENMT Head: normal to inspection Ears: TM's normal bilaterally Nose: external nose normal Face and sinus: normal facial exam Mouth: oral mucosae normal and other (Minor swelling right anterior 1/3 of tongue) Resp Effort & Inspection: normal respiratory effort Auscultation: clear to auscultation bilaterally Cardio Rate: regular rate Rhythm: regular rhythm Skin Lesions: no lesions Rashes: no rashes Extrem General: normal to inspection and capillary refill normal <Poppy David DO - Last Filed: 10/17/19 18:53> Initial Vital Signs Initial Vital Signs: Vital Signs Temperature 98.2 F 10/17/19 06:32 Pulse Rate 79 10/17/19 06:32 Respiratory Rate 14 10/17/19 06:32 Blood Pressure 141/98 H 10/17/19 06:32 Pulse Oximetry 96 10/17/19 06:32 Course <Elroy Byrd DO - Last Filed: 10/22/19 18:40> Orders Ordered: Discontinued Medications Diphenhydramine HCl (Benadryl) 25 mg IV NOW ONE Stop: 10/17/19 06:38 Last Admin: 10/17/19 06:58 Dose: 25 mg Documented by: IVETTE Famotidine (Pepcid) 20 mg in 50 mls @ 200 mls/hr IV NOW ONE Stop: 10/17/19 06:51 Last Infusion: 10/17/19 07:26 Dose: 0 mls/hr Documented by: Admin: 10/17/19 06:58 Dose: 200 mls/hr Documented by: IVETTE Methylprednisolone (Solu-Medrol 125 Mg Vial) 125 mg IV NOW ONE Stop: 10/17/19 06:38 Last Admin: 10/17/19 06:58 Dose: 125 mg Documented by: IVETTE Vital Signs Vital signs: Vital Signs - 8 hr 10/17/19 06:32 10/17/19 08:30 Temperature 98.2 F Pulse Rate 79 71 Respiratory Rate 14 16 Blood Pressure 141/98 H Blood Pressure [Left Arm] 137/91 H Pulse Oximetry 96 95 <DO Cassandra Morse Last Filed: 10/17/19 18:53> Orders Ordered: Discontinued Medications Diphenhydramine HCl (Benadryl) 25 mg IV NOW ONE Stop: 10/17/19 06:38 Last Admin: 10/17/19 06:58 Dose: 25 mg Documented by: IVETTE Famotidine (Pepcid) 20 mg in 50 mls @ 200 mls/hr IV NOW ONE Stop: 10/17/19 06:51 Last Infusion: 10/17/19 07:26 Dose: 0 mls/hr Documented by: Admin: 10/17/19 06:58 Dose: 200 mls/hr Documented by: IVETTE Methylprednisolone (Solu-Medrol 125 Mg Vial) 125 mg IV NOW ONE Stop: 10/17/19 06:38 Last Admin: 10/17/19 06:58 Dose: 125 mg Documented by: IVETTE Vital Signs Vital signs: Vital Signs - 8 hr 10/17/19 06:32 10/17/19 08:30 Temperature 98.2 F Pulse Rate 79 71 Respiratory Rate 14 16 Blood Pressure 141/98 H Blood Pressure [Left Arm] 137/91 H Pulse Oximetry 96 95 Medical Decision Making <Elroy Byrd, DO - Last Filed: 10/22/19 18:40> [facility] Narrative Medical decision making narrative: Patient is not in any respiratory distress. He states that he feels like that is tongue is swollen. He has very minor swelling potentially in the anterior 1/3 of the tongue. Given his prior history of tongue swelling any angioedema was given medications. Will observe here in [facility] emergency department. Care turned over to day provider change of shift to follow up that ultimate disposition. <Poppy David, DO - Last Filed: 10/17/19 18:53> [facility] Narrative Medical decision making narrative: Patient signed out to myself by Dr. Byrd, patient has history of angioedema. Patient received medications about 35-40 minutes prior to evaluation by myself. Patient states that he feels like he is having some improvement. On exam on unable to appreciate swelling directly but when he deviates his tongue laterally I can appreciate some mild posterior swelling on the right. Patient states that initially they thought his medication/are Marty inhibitor had caused his symptoms he had 2 episodes in April. He did follow-up with an machine operator transplanter is total they did think that it was a food allergy. He was later told they thought it might be amlodipine which he was on. He has had 3 episodes total he states feeling medication he is taking currently is hydrochlorothiazide which was started in April after his other episode. On recheck patient states symptoms have completely resolved and after observation for two hours no recurrence. One exam I am unable to appreciate swelling. Plan for d/c home with steroids, H2 magi and strict return precautions as etiology of angioedema is unclear at this time. Patient is comfortable with this plan expresses understanding of reasons to return s/s to watch for. Discharge Plan Departure Patient Disposition: Home Clinical Impression: Angioedema Discharge Date/Time: 10/17/19 09:51 Instructions: DI for Angioedema Activity Restrictions/Additional Instructions: Follow-up with primary care in the next week for recheck. Take prednisone once daily until gone. I would recommend continuing Zantac twice daily until gone. Prescriptions were sent to [facility]. You may take Benadryl 1-2 tablets if you're having any symptoms. Return to the emergency department for fevers greater 100.4, recurrent symptoms, recurrent swelling of the mouth, tongue, airway, if you're having muffled voice, stridor, lightheadedness, passing out, persistent vomiting, new rashes or hives or other new or concerning symptoms. Prescriptions: New prednisone 50 mg tablet 50 mg PO DAILY Qty: 5 RF: 0 ranitidine HCl [Zantac] 150 mg tablet 150 mg PO BID Qty: 10 RF: 0 No Action hydrochlorothiazide 25 mg tablet 25 mg PO QAM RF: 0 dicyclomine 10 mg capsule 20 mg PO BID PRN (Reason: Abdominal cramping) Qty: 10 RF: 0 sucralfate [Carafate] 100 mg/mL suspension 10 ml PO QID Qty: 420 RF: 0 Referrals: Adán Holman [Primary Care Provider] -
[2019-10-17] MEDS: FAMOTIDINE 20 MG/50 ML PIGGYBACK 200 MG IV (06:58)
[2019-10-17] MEDS: diphenhydrAMINE 50 MG/ML VIAL 25 MG IV (06:58)
[2019-10-17] MEDS: methylPREDNISolone 125 MG/2 ML VIAL IV (06:58)
[2019-10-17 08:30] VITALS: BP 137/91; PULSE 71; RESP 16; O2SAT 95
== END 2019-10-17 09:51 | disposition home or self-care (01) ==
PROVIDERS: Emergency Provider Emergency Medicine; PCP Physician Assistant Medical
DX: T78.3XXA Angioneurotic edema, initial encounter (principal)
CPT/HCPCS: 96365; 96375; 99283; 99284; J1200; J2930

== ENCOUNTER 2019-11-14 11:25 | Emergency (ER) | payer MEDICARE, MEDICAID, SELFPAY ==
[2018-08-01 09:00] VITALS: PULSE 43; RESP 16; O2SAT 96
[2019-11-14 11:28] VITALS: BP 149/94; PULSE 74; RESP 16; TEMP 36.3; O2SAT 96; BMI 30.4
--- NOTE | 2019-11-14 11:47 | ED.ALLEREA ---
HPI - Allergic Reaction <Katherin MontanezSIRIA - Last Filed: 11/14/19 22:04> General Chief complaint: Allergic Reaction Stated complaint: Allergic Reaction Time Seen by Provider: 11/14/19 11:35 Source: patient and EMS Mode of arrival: EMS History of Present Illness HPI narrative: 59yo male with history of multiple episodes of angioedema, the 1st occurring on 07/30/2018 requiring intubation was thought to be from lisinopril, patient stop taking lisinopril at that time. He also was seen in the emergency department on 04/21/2019, and 04/28/2019 for tongue swelling and throat swelling, during this time he was treated with Pepcid, epinephrine, and Solu-Medrol which resolved the symptoms. Patient was also seen on 10/17/2019 for similar and treated again as stated above. Patient reports he was seen at [facility] on 10/30/2019 for tongue swelling, he states laboratory tests were taken and sent off. Patient reports this morning around 6:00 a.m. he began to feel like the left side of his tongue was swelling, he went back to sleep and again he woke up around 10am and noticed that the left side of his tongue was increasing and swelling and he started to feel like the outside of his neck was swollen. Patient stated he took 25 mg of Benadryl and then called 911. Patient reported associated nausea. Medics reported he was given 50 mg of Benadryl and 4 mg of Zofran IV. Patient it is hard to swallow. Patient stated that he feels like the tongue swelling is slightly decreasing his since arrival. Patient denies any other symptoms such as shortness of breath, wheezing, hives, difficulty swallowing mouth secretions, abdominal pain, vomiting, diarrhea, dizziness, syncope, vision changes, other concerns. Patient was given dexamethasone and cetirizine after his last emergency department stay, patient states he took them 1 day and then discontinue them because they made him ?feel jittery ?. Related Data Home Medications Medication Instructions Recorded Confirmed hydrochlorothiazide 25 mg PO QAM 06/10/19 11/14/19 Previous Rx's Medication Instructions Recorded dicyclomine 20 mg PO BID PRN #10 cap 06/10/19 sucralfate [Carafate] 10 ml PO QID #420 ml 06/28/19 prednisone 50 mg PO DAILY #5 tab 10/17/19 ranitidine HCl [Zantac] 150 mg PO BID #10 tab 10/17/19 dexamethasone 4 mg PO BID 5 Days #10 tab 11/14/19 epinephrine [EpiPen] 0.3 mg IM Q15M PRN #2 each 11/14/19 loratadine 10 mg PO DAILY 30 Days #30 tab 11/14/19 Allergies Allergy/AdvReac Type Severity Reaction Status Date / Time lisinopril Allergy Severe Swelling Verified 11/14/19 11:28 of Lip/Tongue/Throat citalopram [CITALOPRAM] Allergy Unknown SEIZURES Verified 11/14/19 11:28 hydrocodone [HYDROCODONE] AdvReac Mild N/V Verified 11/14/19 11:28 Review of Systems <SIRIA Rico - Last Filed: 11/14/19 22:04> Review of Systems Narrative: REVIEW OF SYSTEMS: GENERAL: Denies fever or chills. HENT: No head trauma,. Complains of left-sided tongue swelling and neck swelling, see HPI. EYES: No loss of vision, double vision, eye pain, or irritation. CARDIOVASCULAR: No chest pain or syncope. RESPIRATORY: No shortness of breath or cough. GASTROINTESTINAL: No vomiting, diarrhea, or constipation. GENITOURINARY: No flank pain or dysuria. MUSCULOSKELETAL: No pain, weakness, or deformities. INTEGUMENTARY: No rash, lesions, or pruritus. NEURO: No numbness, tingling, memory loss, or confusion. PSYCH: No behavior or mood changes. Patient History <SIRIA Rico - Last Filed: 11/14/19 22:04> Medical History Chronic thoracic spine pain (Acute) Dyspepsia (Acute) History of rib fracture (Acute) History of stroke (Acute) Hx of angioedema (Acute) Hypertension (Acute) Injury of hip, right (Acute) Intermittent lightheadedness (Acute) Surgical History History of eye surgery (Acute) History of Blanche fundoplication (Acute) History of splenectomy (Acute) Status post cervical spinal fusion (Acute) Family History Father Congestive heart failure Lymph edema Mother Perforated sigmoid colon Brother Stroke Sister Hypertension Social History household members: family and children Smoking Status: Current every day smoker Smoking Status: Current every day smoker alcohol intake frequency: 0-2 drinks per day Substance Use Type: does not use Exam <SIRIA Rico - Last Filed: 11/14/19 22:04> Initial Vital Signs Initial Vital Signs: Vital Signs Temperature 97.3 F L 11/14/19 11:28 Pulse Rate 74 11/14/19 11:28 Respiratory Rate 16 11/14/19 11:28 Blood Pressure 149/94 H 11/14/19 11:28 Pulse Oximetry 96 11/14/19 11:28 PHYSICAL EXAMINATION: GENERAL: Well groomed, alert, and cooperative. Answers questions promptly and appropriately. Vital signs noted. HENT: Normocephalic, atraumatic. Mild swelling noted to left side of tongue, and external area of left side of neck on initial examination. This almost completely resolved upon discharge after medications and over 4 hours of observation. Patient was able to maintain secretions throughout his 4-5 hours in the emergency department stay. He was able to eat and drink without difficulty. His voice was within normal limits and did not exhibit a muscle tone at any point. EYES: PERRLA, conjunctiva pink, sclera white, no periorbital swelling. CHEST: Normal to inspection and without deformities. CARDIOVASCULAR: S1 and S2 sounds normal. Regular rate and rhythm, no murmurs, clicks, or bruits. No pedal edema. RESPIRATORY: Normal respiratory rate, trachea midline, airway patent. No stridor, nasal flaring or accessory muscle use. Lungs are clear in all lópez without wheeze, rhonchi, or crackles. No cough heard during examination. GASTROINTESTINAL: Bowel sounds normoactive. Abdomen is soft and non-tender. No organomegaly. MUSCULOSKELETAL: Normal gait and coordination. Equal tone and mass bilaterally. EXTREMITIES: CMS intact. Moves all extremities. SKIN: Warm, dry, soft, appropriate color for ethnicity. No lesions, rashes, or wounds. NEURO: Alert and Oriented X 3. Good coordination. No ataxia, or sensory deficits, or cognitive issues. PSYCH: Appropriate affect and mood. <Neftali Cespedes MD - Last Filed: 11/15/19 11:20> Initial Vital Signs Initial Vital Signs: Vital Signs Temperature 97.3 F L 11/14/19 11:28 Pulse Rate 74 11/14/19 11:28 Respiratory Rate 16 11/14/19 11:28 Blood Pressure 149/94 H 11/14/19 11:28 Pulse Oximetry 96 11/14/19 11:28 Course <Katherin MontanezSIRIA - Last Filed: 11/14/19 22:04> Course Course Narrative: Patient had significant decrease in swelling after administration medications and observation for 4 hours. He was hemodynamically stable and continued to maintain secretions, he was able to eat and drink that difficulty. Records were requested from [facility]. Records from [facility] indicate that patient presented with similar symptoms which resolved after administration medications. Additional testing was done, C1 EST INH was resulted at a results greater than 100, C1 EST INH PROT result was 29, C4 see result was 29. These tests appeared to be normal as far as testing for esterase inhibitor abnormalities. Toradol was given to inhibit prostate gland. Orders Ordered: Discontinued Medications Epinephrine HCl (Adrenalin) 0.3 mg IM NOW ONE Stop: 11/14/19 11:56 Last Admin: 11/14/19 12:12 Dose: 0.3 mg Documented by: SHELL Famotidine (Pepcid) 20 mg in 50 mls @ 200 mls/hr IV NOW ONE Stop: 11/14/19 12:00 Last Infusion: 11/14/19 12:43 Dose: 0 mls/hr Documented by: Admin: 11/14/19 12:14 Dose: 200 mls/hr Documented by: SHELL Sodium Chloride (Normal Saline 0.9%) 1,000 mls @ 1,000 mls/hr IV BOLUS ONE Stop: 11/14/19 13:35 Last Infusion: 11/14/19 14:50 Dose: 0 mls/hr Documented by: Admin: 11/14/19 13:43 Dose: 1,000 mls/hr Documented by: TEJAL Ketorolac Tromethamine (Toradol) 30 mg IV NOW ONE Stop: 11/14/19 13:58 Last Admin: 11/14/19 14:14 Dose: 30 mg Documented by: TEJAL Methylprednisolone (Solu-Medrol 125 Mg Vial) 125 mg IV NOW ONE Stop: 11/14/19 11:42 Last Admin: 11/14/19 12:13 Dose: 125 mg Documented by: SHELL Consultations Consultation #1: Patient staffed with Dr. Cespedes Vital Signs Vital signs: Vital Signs - 8 hr 11/14/19 16:10 Pulse Rate 86 Respiratory Rate 17 Blood Pressure 145/89 H Pulse Oximetry 94 <Neftali Cespedes MD - Last Filed: 11/15/19 11:20> Orders Ordered: Discontinued Medications Epinephrine HCl (Adrenalin) 0.3 mg IM NOW ONE Stop: 11/14/19 11:56 Last Admin: 11/14/19 12:12 Dose: 0.3 mg Documented by: SHELL Famotidine (Pepcid) 20 mg in 50 mls @ 200 mls/hr IV NOW ONE Stop: 11/14/19 12:00 Last Infusion: 11/14/19 12:43 Dose: 0 mls/hr Documented by: Admin: 11/14/19 12:14 Dose: 200 mls/hr Documented by: SHELL Sodium Chloride (Normal Saline 0.9%) 1,000 mls @ 1,000 mls/hr IV BOLUS ONE Stop: 11/14/19 13:35 Last Infusion: 11/14/19 14:50 Dose: 0 mls/hr Documented by: Admin: 11/14/19 13:43 Dose: 1,000 mls/hr Documented by: TEJAL Ketorolac Tromethamine (Toradol) 30 mg IV NOW ONE Stop: 11/14/19 13:58 Last Admin: 11/14/19 14:14 Dose: 30 mg Documented by: TEJAL Methylprednisolone (Solu-Medrol 125 Mg Vial) 125 mg IV NOW ONE Stop: 11/14/19 11:42 Last Admin: 11/14/19 12:13 Dose: 125 mg Documented by: SHELL Vital Signs Vital signs: Vital Signs - 8 hr 11/14/19 16:10 Pulse Rate 86 Respiratory Rate 17 Blood Pressure 145/89 H Pulse Oximetry 94 MDM - Allergic Reaction <SIRIA Rico - Last Filed: 11/14/19 22:04> Medical Records Attestation: I reviewed the patient's medical records. Lab Data Attestation: I reviewed the patient's lab results. Result diagrams: 11/14/19 12:33 Labs: Lab Results 11/14/19 Range/Units 12:33 WBC 11.6 H (4.5-11.0) X10^3/uL RBC 5.41 (4.5-5.9) X10^6/uL Hgb 18.4 H (13.5-17.5) g/dL Hct 52.9 (41-53) % MCV 97.7 (80-100) fL MCH 34.0 (26-34) PG MCHC 34.8 (30-36) % RDW 14.3 (11.6-14.8) % Plt Count 132 L (150-400) X10^3/uL Neut % (Auto) 73.6 (50-75) % Lymph % (Auto) 16.4 L (25-40) % [place] % (Auto) 8.1 (3-14) % Eos % (Auto) 1.7 L (2-4) % Baso % (Auto) 0.2 (0-2) % Neut # (Auto) 8500 H (5121-9001) /uL Lymph # (Auto) 1900 (5776-9873) /uL [place] # (Auto) 900 (0-900) /uL Eos # (Auto) 200 (0-450) /uL Baso # (Auto) 0 (0-100) /uL ECG Data Interpretation: EKG read by Dr. Orellana per protocol. MDM Narrative Medical decision making narrative: This is a 59-year-old male who presents emergency department for frequent episodes of angioedema. He presents again for an acute episode starting this morning. Patient significantly improved after administration of epinephrine, Solu-Medrol, Pepcid, and IV fluid. Patient was discharged with dexamethasone as he states prednisone causes him to be more jittery. He was encouraged to follow up with an costuming supervisor for further testing of other inflammatory processes. Patient was encouraged to take a daily loratadine. Patient was counseled extensively about the importance of continue taking medication. He was encouraged to return emergency department immediately if another episodes occurred. Less likely cellulitis due to resolution of symptoms after administration medication, differential includes inflammatory process with prostate clean and versus esterase inhibitors versus allergic reaction. <Neftali Cespedes MD - Last Filed: 11/15/19 11:20> Lab Data Labs: Lab Results 11/14/19 Range/Units 12:33 WBC 11.6 H (4.5-11.0) X10^3/uL RBC 5.41 (4.5-5.9) X10^6/uL Hgb 18.4 H (13.5-17.5) g/dL Hct 52.9 (41-53) % MCV 97.7 (80-100) fL MCH 34.0 (26-34) PG MCHC 34.8 (30-36) % RDW 14.3 (11.6-14.8) % Plt Count 132 L (150-400) X10^3/uL Neut % (Auto) 73.6 (50-75) % Lymph % (Auto) 16.4 L (25-40) % [place] % (Auto) 8.1 (3-14) % Eos % (Auto) 1.7 L (2-4) % Baso % (Auto) 0.2 (0-2) % Neut # (Auto) 8500 H (4196-9786) /uL Lymph # (Auto) 1900 (4406-8321) /uL [place] # (Auto) 900 (0-900) /uL Eos # (Auto) 200 (0-450) /uL Baso # (Auto) 0 (0-100) /uL Discharge Plan Departure Patient Disposition: Home Clinical Impression: Angio-edema Qualifiers: Encounter type: initial encounter Qualified Code(s): T78.3XXA - Angioneurotic edema, initial encounter Discharge Date/Time: 11/14/19 16:10 Instructions: DI for Angioedema, DI for Adverse Drug Reaction -- Allergic Activity Restrictions/Additional Instructions: Thank you for entrusting me with your care today. As discussed, you have been prescribed a steroid, I strongly recommend you take this daily as directed. Please take [id number] loratadine 10 mg daily for the next few weeks. Follow-up with immunology for further testing. I have renewed your prescription for EpiPens, Please us if you start to developed throat swelling. These prescriptions were sent to [facility] in [place]. Return to the emergency department immediate or call 911 if you develop new or worsening symptoms such as increased throat swelling, difficulty breathing, difficulty swelling, other concerns. Prescriptions: New dexamethasone 4 mg tablet 4 mg PO BID 5 Days Qty: 10 RF: 0 epinephrine [EpiPen] 0.3 mg/0.3 mL auto-injector 0.3 mg IM Q15M PRN (Reason: angioedema) Qty: 2 RF: 0 loratadine 10 mg tablet 10 mg PO DAILY 30 Days Qty: 30 RF: 0 No Action prednisone 50 mg tablet 50 mg PO DAILY Qty: 5 RF: 0 ranitidine HCl [Zantac] 150 mg tablet 150 mg PO BID Qty: 10 RF: 0 hydrochlorothiazide 25 mg tablet 25 mg PO QAM RF: 0 dicyclomine 10 mg capsule 20 mg PO BID PRN (Reason: Abdominal cramping) Qty: 10 RF: 0 sucralfate [Carafate] 100 mg/mL suspension 10 ml PO QID Qty: 420 RF: 0 Referrals: Adán Holman [Primary Care Provider] -
[2019-11-14 12:00] VITALS: BP 154/98; PULSE 81; RESP 15; O2SAT 96
[2019-11-14] MEDS: EPINEPHrine 1 MG/ML 0.3 MG IM (12:12)
[2019-11-14] MEDS: methylPREDNISolone 125 MG/2 ML VIAL IV (12:13)
[2019-11-14] MEDS: FAMOTIDINE 20 MG/50 ML PIGGYBACK 200 MG IV (12:14)
[2019-11-14 12:30] VITALS: BP 122/96; BP 159/96; PULSE 80; PULSE 86; RESP 16; RESP 18; O2SAT 96
[2019-11-14 12:57] LABS: Add Manual Diff / Slide Review NO; Basophils Absolute Auto 0 /uL (0-100); Basophils Percent Auto 0.2 % (0-2); Eosinophils Absolute Auto 200 /uL (0-450); Eosinophils Percent Auto 1.7 % (2-4); Hematocrit 52.9 % (41-53); Hemoglobin 18.4 g/dL (13.5-17.5); Lymphocytes Absolute Auto 1900 /uL (1100-4500); Lymphocytes Percent Auto 16.4 % (25-40); Mean Corpuscular HGB Conc 34.8 % (30-36); Mean Corpuscular Volume 97.7 fL (80-100); Monocytes Absolute Auto 900 /uL (0-900); Monocytes Percent Auto 8.1 % (3-14); Neutrophils Absolute Auto 8500 /uL (1500-7000); Neutrophils Percent Auto 73.6 % (50-75); Platelet Count 132 X10^3/uL (150-400); Red Blood Cell Count 5.41 X10^6/uL (4.5-5.9); Red Cell Distribution Width 14.3 % (11.6-14.8); White Blood Cell Count 11.6 X10^3/uL (4.5-11.0)
[2019-11-14 13:24] VITALS: BP 161/86; PULSE 92; RESP 17; O2SAT 94
[2019-11-14] MEDS: SODIUM CHLORIDE 0.9% 1,000 ML 1000 ML IV (13:43)
[2019-11-14] MEDS: KETOROLAC 60 MG/2 ML VIAL 30 MG IV (14:14)
[2019-11-14 16:10] VITALS: BP 145/89; PULSE 86; RESP 17; O2SAT 94
== END 2019-11-14 16:10 | disposition home or self-care (01) ==
PROVIDERS: Emergency Provider Nurse Practitioner; PCP Physician Assistant Medical
DX: T78.3XXA Angioneurotic edema, initial encounter (principal); R07.9 Chest pain, unspecified
CPT/HCPCS: 36415; 85025; 93005; 96361; 96365; 96372; 96375; 99284; J0171; J1885; J2930

== ENCOUNTER 2019-11-23 14:32 | Emergency (ER) | payer MEDICARE, MEDICAID, SELFPAY ==
[2018-08-01 09:00] VITALS: PULSE 43; RESP 16; O2SAT 96
[2019-11-23 14:37] VITALS: BP 162/103; PULSE 89; RESP 22; TEMP 36.1; O2SAT 98; BMI 42.9
--- NOTE | 2019-11-23 15:09 | ED.ALLEREA ---
HPI - Allergic Reaction General Chief complaint: Allergic Reaction Stated complaint: Tongue Swelling Time Seen by Provider: 11/23/19 15:09 Source: patient Mode of arrival: Ambulatory Limitations: no limitations History of Present Illness HPI narrative: 59-year-old gentleman with recurrence history of lip and tongue swelling. He has had multiple ER visits over the last number of months. He did and intubated with 1 visit. He is having recurrent doses of steroid with steroid tapers he is taking loratadine daily is using no H2 magi and no Benadryl. He has stopped his hypertensive medication aside from hydrochlorothiazide. Today symptoms started this morning he took loratadine before coming in presented to the emergency room with right-sided tongue swelling slight right facial swelling tenderness under the right side of his jaw still able to speak in full sentences with no wheezing Related Data Home Medications Medication Instructions Recorded Confirmed hydrochlorothiazide 25 mg PO QAM 06/10/19 11/14/19 Previous Rx's Medication Instructions Recorded dicyclomine 20 mg PO BID PRN #10 cap 06/10/19 sucralfate [Carafate] 10 ml PO QID #420 ml 06/28/19 prednisone 50 mg PO DAILY #5 tab 10/17/19 ranitidine HCl [Zantac] 150 mg PO BID #10 tab 10/17/19 dexamethasone 4 mg PO BID 5 Days #10 tab 11/14/19 epinephrine [EpiPen] 0.3 mg IM Q15M PRN #2 each 11/14/19 loratadine 10 mg PO DAILY 30 Days #30 tab 11/14/19 diphenhydramine HCl [Benadryl] 25 mg PO BEDTIME #60 cap 11/23/19 famotidine [Pepcid] 40 mg PO DAILY #30 tab 11/23/19 prednisone 5 mg PO DAILY #60 tab 11/23/19 Allergies Allergy/AdvReac Type Severity Reaction Status Date / Time lisinopril Allergy Severe Swelling Verified 11/23/19 14:37 of Lip/Tongue/Throat citalopram [CITALOPRAM] Allergy Unknown SEIZURES Verified 11/23/19 14:37 hydrocodone [HYDROCODONE] AdvReac Mild N/V Verified 11/23/19 14:37 Review of Systems Review of Systems Narrative: All systems reviewed and are unremarkable except as noted in HPI and below Patient History Medical History Chronic thoracic spine pain (Acute) Dyspepsia (Acute) History of rib fracture (Acute) History of stroke (Acute) Hx of angioedema (Acute) Hypertension (Acute) Injury of hip, right (Acute) Intermittent lightheadedness (Acute) Surgical History History of eye surgery (Acute) History of Blanche fundoplication (Acute) History of splenectomy (Acute) Status post cervical spinal fusion (Acute) Family History Father Congestive heart failure Lymph edema Mother Perforated sigmoid colon Brother Stroke Sister Hypertension Social History household members: family and children Smoking Status: Current every day smoker Smoking Status: Current every day smoker alcohol intake frequency: 0-2 drinks per day Substance Use Type: does not use Exam Narrative Exam Narrative: General: Healthy appearing, in no acute distress. Able to give a complete and coherent history. Well-nourished well-developed HEENT: Moist mucous membranes, normal sclera with reactive pupils, the right side of his tongue does appear to be slightly full, right side of his lower lip with at minor amount of edema some fullness to the angle of the jaw on the right side. Neck: No JVD, supple, no cervical adenopathy Respiratory: Lungs are clear to auscultation, no wheezing no rales no rhonchi. Full and symmetrical air movement Cardiac: Regular rate and rhythm no murmurs no bruits Abdomen: Soft nontender good bowel tones, no flank pain Skin: Warm and dry, no rashes Neurologic: Grossly neurologically intact with no obvious asymmetries or abnormalities Extremities: No trauma, well perfused Psych: Cooperative, appropriate insight and affect Initial Vital Signs Initial Vital Signs: Vital Signs Temperature 97.0 F L 11/23/19 14:37 Pulse Rate 89 11/23/19 14:37 Respiratory Rate 22 11/23/19 14:37 Blood Pressure 162/103 H 11/23/19 14:37 Pulse Oximetry 98 11/23/19 14:37 Course Orders Ordered: Discontinued Medications Diphenhydramine HCl (Benadryl) 50 mg IV NOW ONE Stop: 11/23/19 15:33 Last Admin: 11/23/19 16:55 Dose: 50 mg Documented by: HUMERA Famotidine (Pepcid) 20 mg in 50 mls @ 200 mls/hr IV NOW ONE Stop: 11/23/19 15:48 Last Infusion: 11/23/19 17:05 Dose: 0 mls/hr Documented by: Admin: 11/23/19 16:55 Dose: 200 mls/hr Documented by: HUMERA Methylprednisolone (Solu-Medrol 125 Mg Vial) 60 mg IV NOW ONE Stop: 11/23/19 15:33 Last Admin: 11/23/19 16:55 Dose: 60 mg Documented by: HUMERA Vital Signs Vital signs: Vital Signs - 8 hr 11/23/19 14:37 11/23/19 16:00 11/23/19 17:00 Temperature 97.0 F L Pulse Rate 89 81 78 Respiratory Rate 22 Blood Pressure 162/103 H Blood Pressure [Right Arm] 140/101 H 152/97 H Pulse Oximetry 98 96 97 11/23/19 18:30 Temperature Pulse Rate 93 H Respiratory Rate 14 Blood Pressure Blood Pressure [Right Arm] 155/99 H Pulse Oximetry MDM - Allergic Reaction Medical Records Attestation: I reviewed the patient's medical records. MDM Narrative Medical decision making narrative: On arrival patient was clinically stable maintaining his airway. IV was started. He was given 60 mg of IV Solu-Medrol, 50 mg of Benadryl, and IV Pepcid. Over the course of the ensuing ER stay all of his symptoms have since completely resolved. He has seen his primary care physician, he did see an warehouse material handler who told him this was not a food allergy and didn't have any additional suggestions. At this point he is having recurrence high dose courses of steroids as his discharge from his emergency room visits. He is not on scheduled appropriate H2 H1 blockers and on nonsedating antihistamines. Also continues his hydrochlorothiazide he notes that he has been on it since last summer which is about when his symptoms started. I have asked him to stop his hydrochlorothiazide. He will need to follow his blood pressure and may need alternative medications for his essential hypertension. For his acute allergic reaction have suggested 25 mg of Benadryl every night, 10 mg of loratadine every morning, 20 mg of Pepcid every morning. Will place him on a steroid taper Prednisone 5mg 2/9: 50mg 2/10: 45mg 2: 40 212: 35 2: 30 214: 25 215: 20 216: 15 217: 10 218: 5 219: 5 2: 2.5 2: 2.5 Disp #56 Will ask him to follow-up with his primary care physician next week He is safe for home discharge at this time Discharge Plan Departure Patient Disposition: Home Clinical Impression: Allergic reaction Qualifiers: Encounter type: initial encounter Qualified Code(s): T78.40XA - Allergy, unspecified, initial encounter Instructions: DI for Anaphylaxis Activity Restrictions/Additional Instructions: Thank you for coming in today. This has been such a frustrating experience for you. I'm glad that your symptoms are gone by the time he leaves the emergency room today. I a.m. going to suggest that you stop your hydrochlorothiazide to see if this may be part of the etiology behind your current angioedema/allergic reaction symptoms You will need to follow-up with your primary care physician and will need to follow your blood pressure to see how we need to further treat this For the recurrence allergies Please take 25 mg of Benadryl every night, 10 mg of loratadine every morning 40 mg of Pepcid every morning (this will help the heartburn too) steroid taper Prednisone 5mg 2/9: 50mg 2/10: 45mg 211: 40 212: 35 213: 30 214: 25 215: 20 216: 15 217: 10 218: 5 219: 5 2: 2.5 2: 2.5 Disp #56 [facility] [place] I hope you are able to find a solution and get off as many medications as possible all without needing to return to the emergency department. I wish you the best Prescriptions: New diphenhydramine HCl [Benadryl] 25 mg capsule 25 mg PO BEDTIME Qty: 60 RF: 0 famotidine [Pepcid] 40 mg tablet 40 mg PO DAILY Qty: 30 RF: 1 prednisone 5 mg tablet 5 mg PO DAILY Qty: 60 RF: 0 No Action prednisone 50 mg tablet 50 mg PO DAILY Qty: 5 RF: 0 ranitidine HCl [Zantac] 150 mg tablet 150 mg PO BID Qty: 10 RF: 0 dexamethasone 4 mg tablet 4 mg PO BID 5 Days Qty: 10 RF: 0 epinephrine [EpiPen] 0.3 mg/0.3 mL auto-injector 0.3 mg IM Q15M PRN (Reason: angioedema) Qty: 2 RF: 0 loratadine 10 mg tablet 10 mg PO DAILY 30 Days Qty: 30 RF: 0 hydrochlorothiazide 25 mg tablet 25 mg PO QAM RF: 0 dicyclomine 10 mg capsule 20 mg PO BID PRN (Reason: Abdominal cramping) Qty: 10 RF: 0 sucralfate [Carafate] 100 mg/mL suspension 10 ml PO QID Qty: 420 RF: 0 Referrals: Adán Holman [Primary Care Provider] -
[2019-11-23 16:00] VITALS: BP 140/101; PULSE 81; O2SAT 96
[2019-11-23] MEDS: diphenhydrAMINE 50 MG/ML VIAL IV (16:55)
[2019-11-23] MEDS: methylPREDNISolone 125 MG/2 ML VIAL 60 MG IV (16:55)
[2019-11-23] MEDS: FAMOTIDINE 20 MG/50 ML PIGGYBACK 200 MG IV (16:55)
[2019-11-23 17:00] VITALS: BP 152/97; PULSE 78; O2SAT 97
[2019-11-23 18:30] VITALS: BP 155/99; PULSE 93; RESP 14
[2019-11-23 19:23] VITALS: BP 150/103; PULSE 83; O2SAT 96
== END 2019-11-23 19:24 | disposition home or self-care (01) ==
PROVIDERS: Emergency Provider Emergency Medicine; PCP Physician Assistant Medical
DX: T78.40XA Allergy, unspecified, initial encounter (principal)
CPT/HCPCS: 36415; 96374; 96375; 99284; J1200; J2930

== ENCOUNTER 2019-12-05 15:39 | Emergency (ER) | payer MEDICARE, MEDICAID, SELFPAY ==
[2018-08-01 09:00] VITALS: PULSE 43; RESP 16; O2SAT 96
[2019-12-05 15:41] VITALS: BP 157/114; PULSE 108; RESP 20; O2SAT 97; BMI 30.4
[2019-12-05] MEDS: methylPREDNISolone 125 MG/2 ML VIAL IV (16:00)
[2019-12-05] MEDS: diphenhydrAMINE 50 MG/ML VIAL 25 MG IV (16:01)
[2019-12-05] MEDS: EPINEPHrine 1 MG/ML 1.1 MG IM (16:03)
[2019-12-05] MEDS: FAMOTIDINE 20 MG/50 ML PIGGYBACK 200 MG IV (16:03)
--- NOTE | 2019-12-05 16:08 | ED_ITS ---
HPI - Allergic Reaction General Chief complaint: Allergic Reaction Stated complaint: tongue swelling Time Seen by Provider: 12/05/19 15:40 Source: patient Mode of arrival: Ambulatory Limitations: no limitations History of Present Illness HPI narrative: 59-year-old male daily smoker with extensive history of angioede ma and subsequent intubations under similar circumstances presents with a chief complaint of tongue swelling, difficulty swallowing and difficulty breathing for the past 1 hour. He has been intubated previously. He has been on oral steroids for the past 2 weeks and thought he might be getting better and was tapering down but symptoms returned again today. He does take antihistamines daily as well. He does not have an existing or known cause of his angioedema though other events subsequent visits and evaluations. He denies any new medications, foods or pets. He denies any abdominal complaints, diarrhea nor rash or urticaria. MD complaint: allergic reaction and facial swelling Onset (ago): hour(s) Exposure: unknown Symptoms: lip swelling, difficulty swallowing, difficulty breathing and tongue swelling Severity: moderate Treatment prior to arrival: benadryl Previous Allergic Reaction History: prior ED visit(s), angioedema and intubation Related Data Home Medications Medication Instructions Recorded Confirmed hydrochlorothiazide 25 mg PO QAM 06/10/19 12/05/19 cetirizine 10 mg PO DAILY 12/05/19 12/05/19 Previous Rx's Medication Instructions Recorded dicyclomine 20 mg PO BID PRN #10 cap 06/10/19 ranitidine HCl [Zantac] 150 mg PO BID #10 tab 10/17/19 dexamethasone 4 mg PO BID 5 Days #10 tab 11/14/19 epinephrine [EpiPen] 0.3 mg IM Q15M PRN #2 each 11/14/19 loratadine 10 mg PO DAILY 30 Days #30 tab 11/14/19 diphenhydramine HCl [Benadryl] 25 mg PO BEDTIME #60 cap 11/23/19 famotidine [Pepcid] 40 mg PO DAILY #30 tab 11/23/19 prednisone 5 mg PO DAILY #60 tab 11/23/19 prednisone See Rx Instructions .ROUTE 12/05/19 .COMPLEX #30 tab Allergies Allergy/AdvReac Type Severity Reaction Status Date / Time lisinopril Allergy Severe Swelling Verified 12/05/19 15:41 of Lip/Tongue/Throat citalopram [CITALOPRAM] Allergy Unknown SEIZURES Verified 12/05/19 15:41 hydrocodone [HYDROCODONE] AdvReac Mild N/V Verified 12/05/19 15:41 Review of Systems Constitutional Constitutional: Denies chills, Denies fatigue, Denies fever(s), Denies frequent falls, Denies lethargy and Denies weakness Eyes Eyes: Denies change in vision, Denies eye discharge, Denies irritation and Denies loss of vision ENT Ears, Nose, Mouth, and Throat: Denies change in voice, Denies dizziness, Reports lip swelling, Denies neck pain, Denies sore throat and Reports throat swelling Cardiovascular Cardiovascular: Denies chest pain, Denies irregular heart rhythm, Denies lightheadedness, Denies palpitations, Denies dyspnea, Denies dyspnea on exertion and Denies orthopnea Respiratory Respiratory: Denies cough, Denies dyspnea, Denies dyspnea on exertion and Denies wheezing Gastrointestinal Gastrointestinal: Denies abdominal pain, Denies change in bowel habits, Denies diarrhea, Denies nausea and Denies vomiting Genitourinary Genitourinary: Denies hematuria, Denies flank pain, Denies urinary incontinence and Denies urinary urgency Musculoskeletal Musculoskeletal: Denies back pain, Denies muscle weakness, Denies neck pain, Denies numbness and Denies tingling Integumentary/Breasts Skin/Breast: Denies pruritus, Denies erythema, Denies rash and Denies wounds Neurologic Neurologic: Denies behavioral changes, Denies confusion, Denies dizziness, Denies frequent falls, Denies loss of vision, Denies numbness, Denies tingling and Denies weakness Psychiatric Psychiatric: Denies anxiety, Denies behavioral changes, Denies confusion, Denies depression, Denies homicidal ideation and Denies suicidal ideation Endocrine Endocrine: Denies fatigue, Denies flushing and Denies palpitations Hematologic/Lymphatic Hematologic/Lymphatic: Denies easy bruising Allergic/Immunologic Allergic/Immunologic: Denies urticaria, Reports lip swelling, Reports throat swelling and Denies wheezing Patient History Medical History Chronic thoracic spine pain (Acute) Dyspepsia (Acute) History of rib fracture (Acute) History of stroke (Acute) Hx of angioedema (Acute) Hypertension (Acute) Injury of hip, right (Acute) Intermittent lightheadedness (Acute) Surgical History History of eye surgery (Acute) History of Blanche fundoplication (Acute) History of splenectomy (Acute) Status post cervical spinal fusion (Acute) Family History Father Congestive heart failure Lymph edema Mother Perforated sigmoid colon Brother Stroke Sister Hypertension Social History household members: family and children Smoking Status: Current every day smoker Smoking Status: Current every day smoker alcohol intake frequency: 0-2 drinks per day Substance Use Type: does not use Exam Narrative Exam Narrative: GENERAL: [59] year old patient appears stated age. Well-nourished, well-developed patient, in mild distress. Anxious HEAD: Atraumatic. Normocephalic. EYES: Pupils equal round and reactive. Extraocular motions intact. No scleral icterus. No injection or drainage. ENT: Mild tongue swelling, mild R jaw swelling at ramus. Nose without bleeding, purulent drainage. Throat without erythema, tonsillar hypertrophy or exudate. Airway patent. NECK: Trachea midline. Non tender CARDIOVASCULAR: Regular rate and rhythm without murmurs, gallops, or rubs. RESPIRATORY: Clear to auscultation. Breath sounds equal bilaterally. No wheezes, rales, or rhonchi. GASTROINTESTINAL: Abdomen soft, non-tender, nondistended. EXTREMITIES: No edema or joint tenderness. BACK: Nontender without deformity or crepitance. No flank tenderness. NEURO: AOx3. SKIN: No rash or erythema of visible areas Initial Vital Signs Initial Vital Signs: Vital Signs Pulse Rate 108 H 12/05/19 15:41 Respiratory Rate 20 12/05/19 15:41 Blood Pressure 157/114 H 12/05/19 15:41 Pulse Oximetry 97 12/05/19 15:41 Course Orders Ordered: ED Orders 12/05/19 16:20 Complete Blood Count AUTO DIFF Stat 12/05/19 16:40 Basic Metabolic Panel Urgent Discontinued Medications Diphenhydramine HCl (Benadryl) 25 mg IV NOW ONE Stop: 12/05/19 15:57 Last Admin: 12/05/19 16:01 Dose: 25 mg Documented by: TERRY Epinephrine HCl (Adrenalin) 1.1 mg 0.01 mg/kg (1.1 mg) IM NOW ONE Stop: 12/05/19 15:57 Last Admin: 12/05/19 16:03 Dose: 1.1 mg Documented by: TERRY Famotidine (Pepcid) 20 mg in 50 mls @ 200 mls/hr IV NOW ONE Stop: 12/05/19 16:10 Last Infusion: 12/05/19 16:17 Dose: 0 mls/hr Documented by: Admin: 12/05/19 16:03 Dose: 200 mls/hr Documented by: TERRY Methylprednisolone (Solu-Medrol 125 Mg Vial) 125 mg IV NOW ONE Stop: 12/05/19 15:57 Last Admin: 12/05/19 16:00 Dose: 125 mg Documented by: TERRY Reevaluation(s) Reevaluation #1: feeling much better after above stated therapies. Time: 16:20 Reevaluation #2: patient feeling great and back at baseline. No trouble swallowing, or breathing. HR down to the upper 90s. Vital Signs Vital signs: Vital Signs - 8 hr 12/05/19 15:41 12/05/19 16:18 12/05/19 16:34 Pulse Rate 108 H 91 H 99 H Respiratory Rate 20 23 18 Blood Pressure 157/114 H Blood Pressure [Right Arm] 162/82 H 165/94 H Pulse Oximetry 97 96 97 12/05/19 17:00 12/05/19 18:30 12/05/19 18:42 Pulse Rate 103 H 114 H 114 H Respiratory Rate 22 20 24 Blood Pressure Blood Pressure [Right Arm] 158/86 H 153/96 H 153/96 H Pulse Oximetry 96 94 94 MDM - Allergic Reaction Lab Data Result diagrams: 12/05/19 16:20 12/05/19 16:40 Labs: Lab Results 12/05/19 12/05/19 Range/Units 16:20 16:40 WBC 13.5 H (4.5-11.0) X10^3/uL RBC 5.32 (4.5-5.9) X10^6/uL Hgb 18.4 H (13.5-17.5) g/dL Hct 52.3 (41-53) % MCV 98.3 (80-100) fL MCH 34.7 H (26-34) PG MCHC 35.2 (30-36) % RDW 14.7 (11.6-14.8) % Plt Count 130 L (150-400) X10^3/uL Neut % (Auto) 66.0 (50-75) % Lymph % (Auto) 25.6 (25-40) % [place] % (Auto) 7.2 (3-14) % Eos % (Auto) 0.7 L (2-4) % Baso % (Auto) 0.5 (0-2) % Neut # (Auto) 8900 H (8255-7387) /uL Lymph # (Auto) 3500 (8947-5793) /uL [place] # (Auto) 1000 H (0-900) /uL Eos # (Auto) 100 (0-450) /uL Baso # (Auto) 100 (0-100) /uL Sodium 140 (137-145) mmol/L Potassium 3.8 (3.4-5.1) mmol/L Chloride 106 (98-107) mmol/L Carbon Dioxide 22 (22-32) mmol/L BUN 19 (9-20) mg/dL Creatinine 1.10 (0.66-1.25) mg/dL Estimated GFR > 60.0 (>60) mL/min BUN/Creatinine Ratio 17.3 (6-22) Glucose 104 H (70-100) mg/dL Calcium 8.8 (8.4-10.2) mg/dL MDM Narrative Medical decision making narrative: 59-year-old male with known recurrence allergic reactions or angioedema has tremendous response to the above-stated therapies with no ongoing symptoms. Feeling much better. Vital signs are stable. Return precautions given and questions answered to his apparent satisfaction. Discharge Plan Departure Patient Disposition: Home Clinical Impression: Allergic reaction Qualifiers: Encounter type: initial encounter Qualified Code(s): T78.40XA - Allergy, unspecified, initial encounter Angio-edema Qualifiers: Encounter type: initial encounter Qualified Code(s): T78.3XXA - Angioneurotic edema, initial encounter Discharge Date/Time: 12/05/19 18:52 Instructions: DI for Angioedema Activity Restrictions/Additional Instructions: *You have been diagnosed with [angioedema] *What to do: *Take medications as directed *Follow up with your primary care provider in 2-3 days, call for an appointment. Let them know you were seen in the Emergency Department and that we ask that you be seen in follow up *Return to ER if you should have any new, worsening or concerning symptoms Prescriptions: New prednisone 10 mg tablet See Rx Instructions .ROUTE .COMPLEX Qty: 30 RF: 0 No Action ranitidine HCl [Zantac] 150 mg tablet 150 mg PO BID Qty: 10 RF: 0 dexamethasone 4 mg tablet 4 mg PO BID 5 Days Qty: 10 RF: 0 epinephrine [EpiPen] 0.3 mg/0.3 mL auto-injector 0.3 mg IM Q15M PRN (Reason: angioedema) Qty: 2 RF: 0 loratadine 10 mg tablet 10 mg PO DAILY 30 Days Qty: 30 RF: 0 diphenhydramine HCl [Benadryl] 25 mg capsule 25 mg PO BEDTIME Qty: 60 RF: 0 famotidine [Pepcid] 40 mg tablet 40 mg PO DAILY Qty: 30 RF: 1 prednisone 5 mg tablet 5 mg PO DAILY Qty: 60 RF: 0 hydrochlorothiazide 25 mg tablet 25 mg PO QAM RF: 0 dicyclomine 10 mg capsule 20 mg PO BID PRN (Reason: Abdominal cramping) Qty: 10 RF: 0 cetirizine 10 mg tablet 10 mg PO DAILY RF: 0 Referrals: Adán Holman [Primary Care Provider] -
[2019-12-05 16:18] VITALS: BP 162/82; PULSE 91; RESP 23; O2SAT 96
[2019-12-05 16:27] LABS: Add Manual Diff / Slide Review NO; Basophils Absolute Auto 100 /uL (0-100); Basophils Percent Auto 0.5 % (0-2); Eosinophils Absolute Auto 100 /uL (0-450); Eosinophils Percent Auto 0.7 % (2-4); Hematocrit 52.3 % (41-53); Hemoglobin 18.4 g/dL (13.5-17.5); Lymphocytes Absolute Auto 3500 /uL (1100-4500); Lymphocytes Percent Auto 25.6 % (25-40); Mean Corpuscular HGB Conc 35.2 % (30-36); Mean Corpuscular Hemoglobin 34.7 PG (26-34); Mean Corpuscular Volume 98.3 fL (80-100); Monocytes Absolute Auto 1000 /uL (0-900); Monocytes Percent Auto 7.2 % (3-14); Neutrophils Absolute Auto 8900 /uL (1500-7000); Platelet Count 130 X10^3/uL (150-400); Red Blood Cell Count 5.32 X10^6/uL (4.5-5.9); Red Cell Distribution Width 14.7 % (11.6-14.8); White Blood Cell Count 13.5 X10^3/uL (4.5-11.0)
[2019-12-05 16:34] VITALS: BP 165/94; PULSE 99; RESP 18; O2SAT 97
[2019-12-05 17:00] VITALS: BP 158/86; PULSE 103; RESP 22; O2SAT 96
[2019-12-05 17:01] LABS: BUN Creatinine Ratio 17.3 (6-22); Blood Urea Nitrogen 19 mg/dL (9-20); Calcium 8.8 mg/dL (8.4-10.2); Carbon Dioxide 22 mmol/L (22-32); Chloride 106 mmol/L (98-107); Estimated Glomerular Filt Rate > 60.0 mL/min (>60); Glucose 104 mg/dL (70-100); HEMOLYSIS 17 (0-50); Potassium 3.8 mmol/L (3.4-5.1); Sodium 140 mmol/L (137-145)
[2019-12-05 18:30] VITALS: BP 153/96; PULSE 114; RESP 20; O2SAT 94
[2019-12-05 18:42] VITALS: BP 153/96; PULSE 114; RESP 24; O2SAT 94
== END 2019-12-05 18:52 | disposition home or self-care (01) ==
PROVIDERS: Emergency Provider Emergency Medicine; PCP Physician Assistant Medical
DX: T78.40XA Allergy, unspecified, initial encounter (principal); T78.3XXA Angioneurotic edema, initial encounter
CPT/HCPCS: 36415; 80048; 85025; 96374; 96375; 99284; J0171; J1200; J2930

== ENCOUNTER 2020-01-10 11:06 | Inpatient (IN) | payer MEDICARE, MEDICAID, SELFPAY ==
[2018-08-01 09:00] VITALS: PULSE 43; RESP 16; O2SAT 96
[2020-01-10] VITALS (9 sets, daily range): BP systolic 107–169; BP diastolic 69–106; PULSE 84–126; RESP 17–37; TEMP 36.4–36.7; O2SAT 93–95; BMI 31.2
[2020-01-10] MEDS: EPINEPHrine 1 MG/ML 0.3 MG IM (11:31)
[2020-01-10] MEDS: methylPREDNISolone 125 MG/2 ML VIAL (11:32)
--- NOTE | 2020-01-10 11:33 | ED.ALLEREA ---
HPI - Allergic Reaction General Chief complaint: Allergic Reaction Stated complaint: swollen tongue/throat Time Seen by Provider: 01/10/20 11:24 Source: patient Mode of arrival: EMS Limitations: no limitations History of Present Illness HPI narrative: HPI: The patient is a 59-year-old male with a history of angioedema. His angioedema is thought to be allergic in nature and involves his throat uvula soft palate and tongue. Sometimes there is swelling of his face. He has no other signs of urticaria. The patient this morning developed swelling of his left face and swelling of his tongue. He is not developed any difficulty in breathing. He denies a history of asthma myocardial infarction seizure disorder diabetes mellitus but admits to a previous stroke and hypertension. He does smoke cigarettes and occasionally drinks alcohol. This morning he took 20 mg of Pepcid sits 50 mg of Benadryl and 20 mg of prednisone. 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 He denies any wheezing or chest pain at this time. He has had no headache recent fever chills or sweats. He denies any shortness of breath cough palpitations or dizziness. He has had no other rash or hives. He has had some mild nausea but no vomiting and he has had some intermittent diarrhea with abdominal cramps. He denies any other urinary symptoms. Related Data Home Medications Medication Instructions Recorded Confirmed hydrochlorothiazide 25 mg PO QAM 06/10/19 01/10/20 famotidine 20 mg PO BID 01/10/20 01/10/20 prednisone 40 mg PO DAILY 01/10/20 01/10/20 Previous Rx's Medication Instructions Recorded epinephrine [EpiPen] 0.3 mg IM Q15M PRN #2 each 11/14/19 diphenhydramine HCl [Benadryl] 25 mg PO BEDTIME #60 cap 11/23/19 Allergies Allergy/AdvReac Type Severity Reaction Status Date / Time lisinopril Allergy Severe Swelling Verified 01/10/20 11:12 of Lip/Tongue/Throat citalopram [CITALOPRAM] Allergy Unknown SEIZURES Verified 01/10/20 11:12 hydrocodone [HYDROCODONE] AdvReac Mild N/V Verified 01/10/20 11:12 Review of Systems Review of Systems Narrative: His review of systems are all negative except for those mentioned in the history of present illness. Patient History Medical History (Updated 01/10/20 @ 20:52 by SIRIA Gunter) Alcohol dependence (Acute) Chronic thoracic spine pain (Acute) Dyspepsia (Acute) History of rib fracture (Acute) History of stroke (Acute) Hx of angioedema (Acute) Hypertension (Acute) Injury of hip, right (Acute) Intermittent lightheadedness (Acute) Surgical History History of eye surgery (Acute) History of Blanche fundoplication (Acute) History of splenectomy (Acute) Status post cervical spinal fusion (Acute) Family History Father Congestive heart failure Lymph edema Mother Perforated sigmoid colon Brother Stroke Sister Hypertension Social History household members: family and children Smoking Status: Current every day smoker Smoking Status: Current every day smoker alcohol intake frequency: 3 or more drinks per day Alcohol type: hard liquor Substance Use Type: does not use Exam Narrative Exam Narrative: PHYSICAL EXAM: CONSTITUTIONAL: Awake, Alert, Oriented, Coherent, Cooperative in NAD. He has an asymmetrical appearing face. He has a dysconjugate gaze primarily involving the left eye. There may be some mild swelling of the patient's left cheek. HEAD: AT/NC EENT: PERRL, FROM of eyes, no discharge, No epistaxis or nasal drainage Oral mucosa is moist and pink, posterior pharynx is without erythema or exudate. The patient's left tonsillar pillar and uvula is mildly swollen. He has asymmetrical swelling of his left tongue. He has no stridor or difficulty in breathing. He has no difficulty in speaking or swallowing. NECK: Supple, no obvious JVD, Trachea is midline without stridor, no palpable LN SPINE: No gross deformity, no palpable tenderness of the cervical, thoracic, lumbar or sacral spine. No CVA tenderness. THORAX: No deformity, retractions, chest wall tenderness,. LUNGS: Clear with symmetrical breath sounds without respiratory distress HEART: Normal heart tones, regular rhythm and rate without murmur. ABDOMEN: Soft, non-tender, without guarding, rebound, rigidity or palpable mass . EXTREMITIES: No edema, cyanosis, deformity or tenderness. SKIN: No other rash, hives, itching ,bruising, petechiae or purpura. NEURO: Awake, alert, oriented, conversive, cranial nerves II-XII are symmetrical moves all 4 extremities and is ambulatory Initial Vital Signs Initial Vital Signs: Vital Signs Temperature 98.1 F 01/10/20 11:12 Pulse Rate 96 H 01/10/20 11:12 Respiratory Rate 20 01/10/20 11:12 Blood Pressure 140/98 H 01/10/20 11:12 Pulse Oximetry 95 01/10/20 11:12 Course Course Course Narrative: 13:09 the patient himself has taken 50 mg of Benadryl at home, 20 mg of prednisone, and 20 mg of Pepcid. In the emergency department we have administered an additional 20 mg of Famodipine IV, Solu-Medrol 125 mg IV, Benadryl 25 mg IV, epinephrine 10/999, 0.3 mg SQ and an additional 0.3 mg IM. The patient has also been administered 30 mg of Toradol IV push and to inhibit Mingo continence which can contribute to angioedema. The patient complained of being short of breath and that he thought that his tongue was swelling more. On re-examination is tongue is not any more swollen than on initial evaluation. His posterior pharynx and face are not swollen anymore. His lungs remain clear and symmetrical. He complained of being short of breath and not feeling well. He appears to be mildly anxious. He was administered 0.5 mg of Ativan IV. His arterial blood gases reveal that on room air his pH is 7.451 pCO2 is 34.3 PO2 78 O2 saturation 96. He has a mild respiratory alkalosis secondary to hyperventilation. This is contributing to his complaint of shortness of breath and is caused by his arm mild anxiety. We are currently waiting for the patient to respond to his medications. He is not on any ARB or angiotensin inhibitors. 1408: The nurses informed me that the patient is a chronic alcoholic who drinks a 5th of liquor per day. The patient has been alternating alcohol with his prednisone. The patient has developed a sinus tachycardia of 120. The patient will be administered 100 mg of thiamine IV, 1 mg of Ativan IV and a L of normal saline. The patient has been administered 2 doses of epinephrine which is probably contributing significantly to his sinus tachycardia. The swelling of his tongue has significantly improved. 1640 patient hernia remains agitated and tremulous. He remains tachycardic at at 125, sinus tachycardia. The patient's tongue is no longer swollen. The patient's last drink was at 7:00 a.m.. I believe the patient is acutely withdrawing from the alcohol with sinus tachycardia. He will be given a 2nd L of normal saline and 5 mg of metoprolol. I will call the hospitalist and trying get the patient admitted for acute alcohol withdrawal with agitation and tremor. Hs ETOH is 22. 1841 the patient's EKG obtained at 18:3 4:57 a.m. on January 09 reveals a normal sinus rhythm normal intervals normal axis. The patient has a small R-wave in lead III with flat T-waves. There are no other acute ST or T-wave changes. His EKG looks normal. CIWA Score : 14-16, the patient has a significant headache. I will administer arm 30 mg of Toradol and I have administered 260 mg of phenobarb.. The patient has been discussed with Dr. Chowdary. She will call back or evaluate the patient before admitting. 1931: Discussed the patient with Demar Bermudez who will come down to evaluate Mr. smith and decide whether not he will admit the patient. 1944: Demar Bermudez came down to evaluate patient and he informed him that he wanted to stop drinking alcohol the patient will be admitted observation. Orders Ordered: Acetaminophen (Tylenol) 650 mg PO Q6HR PRN PRN Reason: Fever/Mild Pain (1-3) Al Hydrox/Mg Hydrox/Simethicone (Maalox Plus) 30 ml PO Q6HR PRN PRN Reason: Dyspepsia Calcium Carbonate (Tums) 1,000 mg PO Q4HR PRN PRN Reason: Dyspepsia Chlordiazepoxide HCl (Librium) 50 mg PO Q8H [facility] Diphenhydramine HCl (Benadryl) 50 mg IV Q6HR PRN PRN Reason: Allergic Symptoms Enoxaparin Sodium (Lovenox) 40 mg SUBCUT DAILY [facility] Folic Acid (Folic Acid) 1 mg PO DAILY [facility] Lactated Ringer's (Lactated Ringers) 1,000 mls @ 50 mls/hr IV CONT [facility] Famotidine (Pepcid) 20 mg in 50 mls @ 200 mls/hr IV Q12HR [facility] Last Infusion: 01/11/20 00:10 Dose: 0 mls/hr Documented by: Admin: 01/10/20 23:46 Dose: 200 mls/hr Documented by: Infusion: 01/10/20 23:45 Dose: 200 mls/hr Documented by: Admin: 01/10/20 23:30 Dose: 200 mls/hr Documented by: CHICO Lorazepam (Ativan) 0 mg IV CIWAPRN PRN; Protocol PRN Reason: Alcohol Withdrawal Lorazepam (Ativan) 0 mg PO CIWAPRN PRN; Protocol PRN Reason: Alcohol Withdrawal Multivitamins (Tab-A-Nicole) 1 tab PO DAILY [facility] Naloxone HCl (Narcan) 0.2 mg IV Q2MIN PRN PRN Reason: Opiate Reversal Ondansetron HCl (Zofran) 4 mg IV Q6HR PRN PRN Reason: Nausea And Vomiting Prednisone (Deltasone) 20 mg PO DAILY [facility] Thiamine HCl (Vitamin B-1) 100 mg PO DAILY [facility] Stop: 01/14/20 09:01 Discontinued Medications Chlordiazepoxide HCl (Librium) 50 mg PO Q6HR [facility] Last Admin: 01/11/20 05:10 Dose: 50 mg Documented by: Admin: 01/10/20 23:48 Dose: 50 mg Documented by: CHICO Diphenhydramine HCl (Benadryl) 25 mg IV NOW ONE Stop: 01/10/20 12:24 Last Admin: 01/10/20 12:34 Dose: 25 mg Documented by: JULISA Epinephrine HCl (Adrenalin) 0.3 mg IM NOW ONE Stop: 01/10/20 11:23 Last Admin: 01/10/20 11:31 Dose: 0.3 mg Documented by: HUMERA Epinephrine HCl (Adrenalin) 0.5 mg IM NOW ONE Stop: 01/10/20 12:24 Last Admin: 01/10/20 12:50 Dose: 0.5 mg Documented by: HUMERA Famotidine (Pepcid) 20 mg in 50 mls @ 200 mls/hr IV NOW ONE Stop: 01/10/20 11:45 Last Infusion: 01/10/20 12:45 Dose: 0 mls/hr Documented by: Admin: 01/10/20 11:37 Dose: 200 mls/hr Documented by: HUMERA Sodium Chloride (Normal Saline 0.9%) 1,000 mls @ 20 mls/hr IV CONT MIGUEL Last Infusion: 01/10/20 14:18 Dose: 0 mls/hr Documented by: Admin: 01/10/20 12:50 Dose: 20 mls/hr Documented by: JULISA Sodium Chloride (Normal Saline 0.9%) 1,000 mls @ 1,000 mls/hr IV BOLUS ONE Stop: 01/10/20 15:04 Last Infusion: 01/10/20 15:39 Dose: 0 mls/hr Documented by: Admin: 01/10/20 14:17 Dose: 1,000 mls/hr Documented by: HUMERA Thiamine HCl 100 mg/ Sodium (Chloride) 51 mls @ 204 mls/hr IV NOW ONE Stop: 01/10/20 14:29 Last Infusion: 01/10/20 14:46 Dose: 0 mls/hr Documented by: Admin: 01/10/20 14:18 Dose: 204 mls/hr Documented by: HUMERA Sodium Chloride (Normal Saline 0.9%) 1,000 mls @ 1,000 mls/hr IV BOLUS ONE Stop: 01/10/20 17:35 Last Infusion: 01/10/20 19:37 Dose: 1,000 mls/hr Documented by: Admin: 01/10/20 17:29 Dose: 1,000 mls/hr Documented by: JULISA Magnesium Sulfate 2 gm/ Folic Acid 1 mg/ Thiamine HCl 100 mg / Multivitamins 10 ml/ Sodium Chloride 1,015.2 mls @ 125 mls/hr IV NOW ONE Stop: 01/11/20 04:14 Last Admin: 01/10/20 20:57 Dose: 125 mls/hr Documented by: MINNA Potassium Chloride 40 meq/ (Sodium Chloride) 520 mls @ 130 mls/hr IV NOW ONE Stop: 01/11/20 01:11 Last Infusion: 01/11/20 07:14 Dose: 0 mls/hr Documented by: CHICO Cosigned by: STEVEN Admin: 01/11/20 00:02 Dose: 130 mls/hr Documented by: CHICO Cosigned by: DBROYLE Ketorolac Tromethamine (Toradol) 30 mg IV NOW ONE Stop: 01/10/20 11:26 Last Admin: 01/10/20 12:40 Dose: 30 mg Documented by: JULISA Lorazepam (Ativan) 0.5 mg IV NOW ONE Stop: 01/10/20 12:23 Last Admin: 01/10/20 12:31 Dose: 0.5 mg Documented by: JULISA Lorazepam (Ativan) 1 mg IV NOW ONE Stop: 01/10/20 14:05 Last Admin: 01/10/20 14:12 Dose: 1 mg Documented by: HUMERA Lorazepam (Ativan) 1 mg IV NOW ONE Stop: 01/10/20 14:41 Last Admin: 01/10/20 14:46 Dose: 1 mg Documented by: HUMERA Lorazepam (Ativan) 1 mg IV NOW ONE Stop: 01/10/20 17:31 Last Admin: 01/10/20 17:43 Dose: 1 mg Documented by: JULISA Lorazepam (Ativan) 2 mg PO NOW ONE Stop: 01/10/20 18:15 Last Admin: 01/10/20 18:29 Dose: 2 mg Documented by: JULISA Metoprolol Tartrate (Lopressor) 5 mg IV NOW ONE Stop: 01/10/20 16:51 Last Admin: 01/10/20 17:25 Dose: 5 mg Documented by: JULISA Metoprolol Tartrate (Lopressor) 5 mg IV NOW ONE Stop: 01/10/20 17:51 Last Admin: 01/10/20 17:55 Dose: 5 mg Documented by: JULISA Metoprolol Tartrate (Lopressor) 5 mg IV NOW ONE Stop: 01/10/20 18:15 Last Admin: 01/10/20 18:30 Dose: 5 mg Documented by: JULISA Phenobarbital (Phenobarbital) 260 mg IV NOW ONE Stop: 01/10/20 18:35 Last Admin: 01/10/20 19:04 Dose: 260 mg Documented by: JULISA Potassium Chloride (Klor-Con M20) 20 meq PO NOW ONE Stop: 01/10/20 21:14 Last Admin: 01/10/20 22:21 Dose: 20 meq Documented by: MINNA Vital Signs Vital signs: Vital Signs - 8 hr 01/10/20 12:54 01/10/20 14:04 01/10/20 15:29 Temperature 97.7 F Pulse Rate 109 H 121 H 126 H Respiratory Rate 23 22 23 Blood Pressure [Right Arm] 131/90 156/93 H 107/69 Pulse Oximetry 93 94 94 01/10/20 18:17 01/10/20 19:10 01/10/20 19:31 Temperature Pulse Rate 94 H 85 94 H Respiratory Rate 37 H 21 30 H Blood Pressure [Right Arm] 154/106 H 169/99 H 150/94 H Pulse Oximetry 94 94 94 MDM - Allergic Reaction Lab Data Result diagrams: 01/11/20 05:55 01/11/20 05:55 Labs: Lab Results 01/10/20 01/10/20 01/10/20 Range/Units 12:35 15:10 15:10 WBC 7.3 (4.5-11.0) X10^3/uL RBC 4.87 (4.5-5.9) X10^6/uL Hgb 17.6 H (13.5-17.5) g/dL Hct 49.6 (41-53) % MCV 102.0 H (80-100) fL MCH 36.1 H (26-34) PG MCHC 35.4 (30-36) % RDW 15.5 H (11.6-14.8) % Plt Count 142 L (150-400) X10^3/uL Neut % (Auto) 91.2 H (50-75) % Lymph % (Auto) 7.4 L (25-40) % [place] % (Auto) 1.2 L (3-14) % Eos % (Auto) 0.0 L (2-4) % Baso % (Auto) 0.2 (0-2) % Neut # (Auto) 6700 (7733-4872) /uL Lymph # (Auto) 500 L (0002-6152) /uL [place] # (Auto) 100 (0-900) /uL Eos # (Auto) 0 (0-450) /uL Baso # (Auto) 0 (0-100) /uL PT 10.9 (10.1-12.7) SECONDS INR 0.9 (0.9-1.3) ABG pH 7.45 (7.35-7.45) ABG pCO2 34.3 L (35-45) mmHg ABG pO2 78 L (80-100) mmHg ABG HCO3 24 (22-26) mmol/L ABG Total CO2 25 (21-31) mmol/L ABG O2 Saturation 96 (95-100) % ABG Base Excess 0.0 (-2-2) mmol/L FiO2 21 Sodium (137-145) mmol/L Potassium (3.4-5.1) mmol/L Chloride (98-107) mmol/L Carbon Dioxide (22-32) mmol/L BUN (9-20) mg/dL Creatinine (0.66-1.25) mg/dL Estimated GFR (>60) mL/min BUN/Creatinine Ratio (6-22) Glucose (70-100) mg/dL Calcium (8.4-10.2) mg/dL Phosphorus (2.5-4.5) mg/dL Magnesium (1.6-2.3) mg/dL Total Bilirubin (0.2-1.3) mg/dL AST (17-59) IU/L ALT (<50) IU/L Alkaline Phosphatase (38-126) U/L Total Protein (6.3-8.2) g/dL Albumin (3.5-5.0) g/dL Globulin (1.7-4.1) g/dL Albumin/Globulin Ratio (1.0-2.8) U Opiates 300ng/mL cut (Negative) Ur Oxycodone Screen (Negative) Urine Methadone Screen (Negative) Ur Barbiturates Screen (Negative) U Tricyclic Antidepress (Negative) Ur Phencyclidine Scrn (Negative) Ur Amphetamines Screen (Negative) U Methamphetamines Scrn (Negative) Ur MDMA Scrn (Ecstasy) (Negative) U Benzodiazepines Scrn (Negative) Urine Cocaine Screen (Negative) U Marijuana (THC) Screen (Negative) Ethyl Alcohol ( - 10) mg/dL 01/10/20 01/10/20 01/10/20 Range/Units 15:10 15:10 17:50 WBC (4.5-11.0) X10^3/uL RBC (4.5-5.9) X10^6/uL Hgb (13.5-17.5) g/dL Hct (41-53) % MCV (80-100) fL MCH (26-34) PG MCHC (30-36) % RDW (11.6-14.8) % Plt Count (150-400) X10^3/uL Neut % (Auto) (50-75) % Lymph % (Auto) (25-40) % [place] % (Auto) (3-14) % Eos % (Auto) (2-4) % Baso % (Auto) (0-2) % Neut # (Auto) (9793-2779) /uL Lymph # (Auto) (3327-4616) /uL [place] # (Auto) (0-900) /uL Eos # (Auto) (0-450) /uL Baso # (Auto) (0-100) /uL PT (10.1-12.7) SECONDS INR (0.9-1.3) ABG pH (7.35-7.45) ABG pCO2 (35-45) mmHg ABG pO2 (80-100) mmHg ABG HCO3 (22-26) mmol/L ABG Total CO2 (21-31) mmol/L ABG O2 Saturation (95-100) % ABG Base Excess (-2-2) mmol/L FiO2 Sodium 136 L (137-145) mmol/L Potassium 3.1 L (3.4-5.1) mmol/L Chloride 100 (98-107) mmol/L Carbon Dioxide 19 L (22-32) mmol/L BUN 12 (9-20) mg/dL Creatinine 0.88 (0.66-1.25) mg/dL Estimated GFR > 60.0 (>60) mL/min BUN/Creatinine Ratio 13.6 (6-22) Glucose 153 H (70-100) mg/dL Calcium 8.6 (8.4-10.2) mg/dL Phosphorus 3.7 (2.5-4.5) mg/dL Magnesium 1.7 (1.6-2.3) mg/dL Total Bilirubin 1.1 (0.2-1.3) mg/dL AST 357 H (17-59) IU/L ALT 416 H (<50) IU/L Alkaline Phosphatase 105 (38-126) U/L Total Protein 6.9 (6.3-8.2) g/dL Albumin 4.1 (3.5-5.0) g/dL Globulin 2.8 (1.7-4.1) g/dL Albumin/Globulin Ratio 1.5 (1.0-2.8) U Opiates 300ng/mL cut Negative (Negative) Ur Oxycodone Screen Negative (Negative) Urine Methadone Screen Negative (Negative) Ur Barbiturates Screen Negative (Negative) U Tricyclic Antidepress Negative (Negative) Ur Phencyclidine Scrn Negative (Negative) Ur Amphetamines Screen Negative (Negative) U Methamphetamines Scrn Negative (Negative) Ur MDMA Scrn (Ecstasy) Negative (Negative) U Benzodiazepines Scrn Negative (Negative) Urine Cocaine Screen Negative (Negative) U Marijuana (THC) Screen Negative (Negative) Ethyl Alcohol 22 H ( - 10) mg/dL Discharge Plan Departure Patient Disposition: Admitted as Observation Clinical Impression: Agitation, Sinus tachycardia Angioedema Qualifiers: Encounter type: initial encounter Qualified Code(s): T78.3XXA - Angioneurotic edema, initial encounter Hypertension Qualifiers: Hypertension type: essential hypertension Qualified Code(s): I10 - Essential (primary) hypertension Alcohol withdrawal Qualifiers: Complication of substance-induced condition: with unspecified complication Qualified Code(s): F10.239 - Alcohol dependence with withdrawal, unspecified Discharge Date/Time: 01/10/20 20:40 Admit Date/Time: 01/10/20 20:00 Admit Provider: Gene Bermudez
[2020-01-10] MEDS: FAMOTIDINE 20 MG/50 ML PIGGYBACK 200 MG IV ×3 (11:37→23:46)
--- NOTE | 2020-01-10 12:24 | DI.RAD.S_ITS ---
PROCEDURE: XR CHEST 1V INDICATIONS: SOB TECHNIQUE: One view of the chest was acquired. COMPARISON: [facility], CR, XR CHEST 1V, 08/01/2018, 5:36. FINDINGS: Surgical changes and devices: None. Lungs and pleura: Lungs are clear. No pleural effusions or pneumothorax. Mediastinum: Mediastinal contours appear normal. Heart size is normal. Bones and chest wall: No suspicious bony lesions. Overlying soft tissues appear unremarkable. IMPRESSION: No acute cardiopulmonary pathology. Dictated by: Bhavik Huntley M.D. on 01/10/2020 at 12:57 Approved by: Bhavik Huntley M.D. on 01/10/2020 at 12:57
[2020-01-10] MEDS: LORazepam 2 MG/ML INJ 0.5 MG IV (12:31)
[2020-01-10] MEDS: diphenhydrAMINE 50 MG/ML VIAL 25 MG IV (12:34)
[2020-01-10] MEDS: KETOROLAC 60 MG/2 ML VIAL 30 MG IV (12:40)
[2020-01-10 12:43] LABS: pH ABG 7.45 (7.35-7.45)
[2020-01-10 12:44] LABS: Fractionated Inspired Oxygen 21; HCO3 ABG 24 mmol/L (22-26); Oxygen Saturation ABG 96 % (95-100); PCO2 ABG 34.3 mmHg (35-45); PO2 ABG 78 mmHg (80-100); TCO2 ABG 25 mmol/L (21-31)
[2020-01-10] MEDS: EPINEPHrine 1 MG/ML 0.5 MG IM (12:50)
[2020-01-10] MEDS: SODIUM CHLORIDE 0.9% 1,000 ML 20 ML IV (12:50)
[2020-01-10] MEDS: LORazepam 2 MG/ML INJ 1 MG IV ×3 (14:12→17:43)
[2020-01-10] MEDS: SODIUM CHLORIDE 0.9% 1,000 ML 1000 ML IV ×2 (14:17→17:29)
[2020-01-10] MEDS: THIAMINE 100 MG in SODIUM CHLORIDE 0.9% 50 ML 204 ML IV (14:18)
[2020-01-10 15:24] LABS: Add Manual Diff / Slide Review NO; Basophils Absolute Auto 0 /uL (0-100); Basophils Percent Auto 0.2 % (0-2); Eosinophils Absolute Auto 0 /uL (0-450); Hematocrit 49.6 % (41-53); Hemoglobin 17.6 g/dL (13.5-17.5); Lymphocytes Absolute Auto 500 /uL (1100-4500); Lymphocytes Percent Auto 7.4 % (25-40); Mean Corpuscular HGB Conc 35.4 % (30-36); Mean Corpuscular Hemoglobin 36.1 PG (26-34); Monocytes Absolute Auto 100 /uL (0-900); Monocytes Percent Auto 1.2 % (3-14); Neutrophils Absolute Auto 6700 /uL (1500-7000); Neutrophils Percent Auto 91.2 % (50-75); Platelet Count 142 X10^3/uL (150-400); Red Blood Cell Count 4.87 X10^6/uL (4.5-5.9); Red Cell Distribution Width 15.5 % (11.6-14.8); White Blood Cell Count 7.3 X10^3/uL (4.5-11.0)
[2020-01-10 15:35] LABS: INR 0.9 (0.9-1.3); Prothrombin Time 10.9 SECONDS (10.1-12.7)
[2020-01-10 15:37] LABS: Alanine Aminotransferase 416 IU/L (<50); Albumin 4.1 g/dL (3.5-5.0); Albumin Globulin Ratio 1.5 (1.0-2.8); Alkaline Phosphatase 105 U/L (38-126); Aspartate Aminotransferase 357 IU/L (17-59); BUN Creatinine Ratio 13.6 (6-22); Bilirubin Total 1.1 mg/dL (0.2-1.3); Blood Urea Nitrogen 12 mg/dL (9-20); Calcium 8.6 mg/dL (8.4-10.2); Carbon Dioxide 19 mmol/L (22-32); Chloride 100 mmol/L (98-107); Estimated Glomerular Filt Rate > 60.0 mL/min (>60); Ethanol (ETOH) 22 mg/dL; Globulin 2.8 g/dL (1.7-4.1); Glucose 153 mg/dL (70-100); HEMOLYSIS < 15 (0-50); Potassium 3.1 mmol/L (3.4-5.1); Sodium 136 mmol/L (137-145); Total Protein 6.9 g/dL (6.3-8.2)
[2020-01-10] MEDS: METOPROLOL TARTRATE 5 MG/5 ML INJ IV ×3 (17:25→18:30)
[2020-01-10 18:16] LABS: UR Morphine/Opiate cutoff 300 Negative (Negative); Ur Creatinine Normal (Normal); Ur Specific Gravity Normal (Normal); Urine Amphetamines Negative (Negative); Urine Barbiturates Negative (Negative); Urine Benzodiazepines Negative (Negative); Urine Cocaine Negative (Negative); Urine MDMA Negative (Negative); Urine Methadone Negative (Negative); Urine Methamphetamines Negative (Negative); Urine Oxycodone Negative (Negative); Urine Phencyclidine Negative (Negative); Urine Tetrahydrocannabinol Negative (Negative); Urine Tricyclic Antidepressant Negative (Negative); Urine pH Normal (Normal)
[2020-01-10] MEDS: LORazepam 0.5 MG TABLET 2 MG PO (18:29)
[2020-01-10] MEDS: PHENobarbital 65 MG/ML VIAL 260 MG IV (19:04)
--- NOTE | 2020-01-10 20:18 | P.HP_ITS ---
History of Present Illness History of Present Illness Date Patient Seen: 01/10/20 Time Patient Seen: 19:45 Date of Onset of Symptoms: 01/10/20 Chief complaint: swollen tongue/throat Narrative: Mr. Elroy Larkin is a 59 year old male with history significant for hypertension, prior stroke, dyspepsia and previous angioedema reaction with unknown trigger and alcohol dependence who presents to the ER today with complaints of angioedema and tongue swelling.. He reports developing of swelling of the left face and left side his tongue and soft palate as well as swelling and tenderness to the left upper lateral neck this morning. 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 The etiology of the angioedema is believed to be allergic in origin but no specific trigger has been identified. He reports no changes in diet food or environmental exposures and the last day. The patient additionally acknowledges consuming whiskey daily which is escalated from 2 drinks a day to a 5th of whiskey daily over the last 3 months. He reports his last drink was this morning. He reports he wakes up tremulous and drinks alleviating his symptoms. He canal is is using alcohol to get to sleep. He denies withdrawal seizures. He denies recent illness, fevers or chills. He does complain of a throbbing headache rated at 8/10. Denies complaints chest pain or palpitations, shortness of breath cough or wheezing. He has frequent abdominal pain that he states his doctor tells him is gastritis. He denies nausea or vomiting but has had loose stools for the last couple days. He denies difficulty urinating. Denies recent falls and is independent in all ADLs. Upon arrival in the ER the patient is afebrile with a temperature of 98.1?, heart rate of 96, blood pressure 140/98 with respiratory rate of 20 saturating 95% on room air. A chest x-rays taken which finds no acute cardiopulmonary pathology. An EKG is obtained which finds sinus rhythm with ventricular rate of 88 without block or ectopy and no ST or T-wave changes. On laboratory analysis patient has white count of 7.3, hemoglobin of 17.6, hematocrit of 49.6 and platelets of 142. On coagulation has a PT of 10.9 with an INR 0.9. An ABG is obtained which finds a pH of 7.45 with pCO2 of 34.3, PO2 of 78 and bicarbonate of 24 with a base excess 0, O2 saturation on ABG is 96%. On chemistries C he has a sodium 136, potassium of 3.1, BUN of 12 and a creatinine of 0.88. His nonfasting glucose is 153. On liver functions he has a total bilirubin of 1.1 AST of 357, ALT of 416 can and alkaline phosphatase of 105. He has an albumin of 4.1. On toxicology he has an alcohol level of 22. In the ER the angioedema was treated with an additional 25 mg of Benadryl, epinephrine 0.3 mg IM with repeat dose for continuing sent symptoms, famotidine 20 mg IV and methylprednisolone 125 mg. The patient had resolution of angioedema however while in the ED the patient became tachycardic and hypertensive and was given 3 doses of metoprolol 5 mg IV for heart rate up to 126. The patient also appears tremulous agitated with headache consistent with alcohol withdrawal and is given serial doses of lorazepam starting at 0.5 mg escalating to 1 mg x2 and then 2 mg for total dose of 5.5 mg. The patient remains tremulous and agitated and is given phenobarbital 206 mg IV with improvement in withdrawal symptoms. Following extensive discussion with the patient the patient is admitted to the medicine service for alcohol withdrawals. Patient History Medical History (Updated 01/10/20 @ 20:52 by SIRIA Gunter) Alcohol dependence (Acute) Chronic thoracic spine pain (Acute) Dyspepsia (Acute) History of rib fracture (Acute) History of stroke (Acute) Hx of angioedema (Acute) Hypertension (Acute) Injury of hip, right (Acute) Intermittent lightheadedness (Acute) Surgical History History of eye surgery (Acute) History of Blanche fundoplication (Acute) History of splenectomy (Acute) Status post cervical spinal fusion (Acute) Family & Social History Family History Father Congestive heart failure Lymph edema Mother Perforated sigmoid colon Brother Stroke Sister Hypertension Social History: household members family,children Safety & Behavioral: Feels Safe in Current Yes Environment Been Physically Hurt or No Threatened By a Person Tobacco & Substance use: Tobacco type cigarettes Smoking Status Current every day smoker alcohol intake frequency 3 or more drinks per day Substance Use Type does not use Comment: Advanced directives: In direct discussion with the patient expresses his desire to be FULL CODE. He designates his daughter Elmira or Kathy to be his surrogate decision makers. Meds Home Medications and Allergies Home Medications Medication Instructions Recorded Confirmed Type hydrochlorothiazide 25 mg PO QAM 06/10/19 12/05/19 History epinephrine [EpiPen] 0.3 mg IM Q15M PRN #2 each 11/14/19 12/05/19 Rx diphenhydramine HCl [Benadryl] 25 mg PO BEDTIME #60 cap 11/23/19 12/05/19 Rx famotidine 20 mg PO BID 01/10/20 01/10/20 History prednisone 40 mg PO DAILY 01/10/20 01/10/20 History Allergies Allergy/AdvReac Type Severity Reaction Status Date / Time lisinopril Allergy Severe Swelling Verified 01/10/20 11:12 of Lip/Tongue/Throat citalopram [CITALOPRAM] Allergy Unknown SEIZURES Verified 01/10/20 11:12 hydrocodone [HYDROCODONE] AdvReac Mild N/V Verified 01/10/20 11:12 Review of Systems Review of Systems ROS: Yes All systems reviewed with the patient and are negative except as otherwise documented Exam Vital Signs (past 8 hours): - 01/10/20 12:54 01/10/20 14:04 01/10/20 15:29 Temperature 97.7 F Pulse Rate 109 H 121 H 126 H Respiratory Rate 23 22 23 Blood Pressure [Right Arm] 131/90 156/93 H 107/69 Pulse Oximetry 93 94 94 01/10/20 18:17 01/10/20 19:10 01/10/20 19:31 Temperature Pulse Rate 94 H 85 94 H Respiratory Rate 37 H 21 30 H Blood Pressure [Right Arm] 154/106 H 169/99 H 150/94 H Pulse Oximetry 94 94 94 Oxygen Delivery Method Room Air Narrative Exam Narrative: GENERAL APPEARANCE: well developed, overweight male who is restless and fidgety in no acute distress. HEAD: Normocephalic, atraumatic, no scalp lesions. EYES: Right lid lag, pupils equal, round, reactive to light and accommodation, sclera non-icteric, EOMs intact with bilateral nystagmus EARS: normal external structures, no ear pain NOSE: sinuses non tender to percussion, no rhinorrhea. ORAL CAVITY: mucosa moist. mild left lingual swelling, palate normal, no dysarthria or dysphagia THROAT: normal, no erythema, no exudate. NECK/THYROID: well healed surgical posterior cervical spine, mild swelling without adenopathy right lateral neck, no stridor, no jugular venous distention, no carotid bruit, no thyromegaly, trachea midline. LYMPH NODES: Left anterior cervical chain tenderness on palpation. No supraclavicular lymphadenopathy. SKIN: [place] warm and dry, [place] area anterior chest. HEART: regular rate and rhythm, S1-S2 without murmur, no rubs or gallops, brisk capillary refill, trace edema LUNGS: clear to auscultation bilaterally, no coarseness crackles or wheezing, no cough present CHEST: Symmetrical movement, no accessory muscle use, good tidal volume, speaking in full sentences. ABDOMEN: Soft, no distention, epigastric pain on palpation, no guarding or peritoneal signs, no organomegaly, active bowel tones. BACK: Normal curvature, nontender to palpation, no CVA tenderness on percussion EXTREMITIES: moves all extremities, no deformities or joint effusions. NEUROLOGIC: AAO x4, mild residual right facial doop, remainder of cranial nerves grossly intact , motor strength 5/5 and symmetrical bilateral upper and lower extremities, decreased sensation to inner aspect LLL, hearing grossly normal to speech. PSYCH: alert, good eye contact, anxious, fidgety. Objective Labs Result Diagrams: 01/10/20 15:10 01/10/20 15:10 Labs: Laboratory Results - last 24 hr 01/10/20 01/10/20 01/10/20 12:35 15:10 15:10 WBC 7.3 RBC 4.87 Hgb 17.6 H Hct 49.6 MCV 102.0 H MCH 36.1 H MCHC 35.4 RDW 15.5 H Plt Count 142 L Neut % (Auto) 91.2 H Lymph % (Auto) 7.4 L [place] % (Auto) 1.2 L Eos % (Auto) 0.0 L Baso % (Auto) 0.2 Neut # (Auto) 6700 Lymph # (Auto) 500 L [place] # (Auto) 100 Eos # (Auto) 0 Baso # (Auto) 0 PT 10.9 INR 0.9 ABG pH 7.45 ABG pCO2 34.3 L ABG pO2 78 L ABG HCO3 24 ABG Total CO2 25 ABG O2 Saturation 96 ABG Base Excess 0.0 FiO2 21 Sodium Potassium Chloride Carbon Dioxide BUN Creatinine Estimated GFR BUN/Creatinine Ratio Glucose Calcium Total Bilirubin AST ALT Alkaline Phosphatase Total Protein Albumin Globulin Albumin/Globulin Ratio U Opiates 300ng/mL cut Ur Oxycodone Screen Urine Methadone Screen Ur Barbiturates Screen U Tricyclic Antidepress Ur Phencyclidine Scrn Ur Amphetamines Screen U Methamphetamines Scrn Ur MDMA Scrn (Ecstasy) U Benzodiazepines Scrn Urine Cocaine Screen U Marijuana (THC) Screen Ethyl Alcohol 01/10/20 01/10/20 15:10 17:50 WBC RBC Hgb Hct MCV MCH MCHC RDW Plt Count Neut % (Auto) Lymph % (Auto) [place] % (Auto) Eos % (Auto) Baso % (Auto) Neut # (Auto) Lymph # (Auto) [place] # (Auto) Eos # (Auto) Baso # (Auto) PT INR ABG pH ABG pCO2 ABG pO2 ABG HCO3 ABG Total CO2 ABG O2 Saturation ABG Base Excess FiO2 Sodium 136 L Potassium 3.1 L Chloride 100 Carbon Dioxide 19 L BUN 12 Creatinine 0.88 Estimated GFR > 60.0 BUN/Creatinine Ratio 13.6 Glucose 153 H Calcium 8.6 Total Bilirubin 1.1 AST 357 H ALT 416 H Alkaline Phosphatase 105 Total Protein 6.9 Albumin 4.1 Globulin 2.8 Albumin/Globulin Ratio 1.5 U Opiates 300ng/mL cut Negative Ur Oxycodone Screen Negative Urine Methadone Screen Negative Ur Barbiturates Screen Negative U Tricyclic Antidepress Negative Ur Phencyclidine Scrn Negative Ur Amphetamines Screen Negative U Methamphetamines Scrn Negative Ur MDMA Scrn (Ecstasy) Negative U Benzodiazepines Scrn Negative Urine Cocaine Screen Negative U Marijuana (THC) Screen Negative Ethyl Alcohol 22 H Assessment & Plan Assessment & Plan narrative: 1. Alcohol dependence in acute withdrawal, present on admission, active. -patient endorse consuming a 5th of whiskey daily, last drink this morning. He reports waking tremulous and drinks to resolve symptoms. No history seizures. -patient with escalating withdrawal symptoms while in the emergency department with visible tremors, anxiety and restlessness no visual disturbances hallucinations nausea or vomiting, no diaphoresis. -patient received multiple doses of lorazepam in the ER totaling 5.5 mg and phenobarb 260 mg IV. On evaluation CIWA score is 11. Following extensive discussion patient agrees to admission for alcohol withdrawals. -ordered CIWA protocol with seizure precautions. -ordered lorazepam p.o. and IV per CIWA protocol -ordered Librium 50 mg every 6 hours. -in ordered banana bag followed by lactated Ringer's at 50 cc/hour. -ordered multi vitamins thiamine and folate daily. 2. Acute angioedema, allergic reaction, present on admission, active -patient complains of tongue and facial swelling onset this morning not improving with home Benadryl, Prednisone and Pepcid. -angioedema remains of unknown etiology, no identifiable triggers or exposures to account for his symptoms. -patient's angioedema symptoms resolved with ER treatment with no shortness of breath, cough, dysarthria or dysphagia, uticaria noted on chest. -in the ER the patient received methylprednisolone 125 mg and Pepcid 20 mg IV, with persistent left lingual edema and left lateral neck swelling. -will continue prednisone 20 mg daily with taper -famotidine 20 mg mg IV every 12 hours. -ordered Benadryl 50 mg as needed recurrent symptoms. 3. Chronic Hypertension, present on arrival, active -patient with hypertension upon arrival with blood pressure 140/98. -patient with elevated blood pressure in the ER following treatment with epinephrine for acute angioedema. -patient received 3 doses of metoprolol 5 mg IV while in the ER. -previously patient thought to have angioedema related to lisinopril and had previously been on amlodipine. -will continue patient's current home regimen of hydrochlorothiazide 25 mg daily. -will follow blood pressure. 4. Hypokalemia, acute, present on admission, active. -patient reports diarrhea for the last several days, no nausea vomiting. -potassium potassium is 3.1 on admission labs. -ordered potassium 20 mEq p.o. and 40 mEq IV. 5. Gastroesophageal reflux disorder, chronic, stable -patient is status post [place] fundoplication -famotidine 20 mg IV every 12 hours -ordered Mylanta and calcium carbonate as needed. 6. Tobacco dependence, active -patient has an approximately 16 pack/year smoking history. -encouraged smoking cessation. The patient is admitted to the hospital following treatment for acute angioedema and development of acute alcohol withdrawal. The patient is admitted as inpatient with expected length of stay greater than 2 midnights. Scores GCS Alvin coma scale eye opening: Spontaneous [place] coma scale verbal response: Orientated [place] coma scale motor response: Obey commands Alvin coma scale total score: 15
[2020-01-10] MEDS: MAGNESIUM SULFATE 2 GM, FOLIC ACID 1 MG, THIAMINE 100 MG, MULTIVITAMIN 10 ML in SODIUM ... IV (20:57)
[2020-01-10 21:00] LABS: Magnesium 1.7 mg/dL (1.6-2.3); Phosphorous 3.7 mg/dL (2.5-4.5)
[2020-01-10] MEDS: POTASSIUM CHLORIDE 20 MEQ TAB PO (22:21)
[2020-01-10] MEDS: chlordiazePOXIDE 25 MG CAPSULE 50 MG PO (23:48)
[2020-01-11] VITALS (7 sets, daily range): BP systolic 121–150; BP diastolic 76–100; PULSE 71–77; RESP 16–20; TEMP 35.9–37.2; O2SAT 94–97
[2020-01-11] MEDS: POTASSIUM CHLORIDE 40 MEQ in SODIUM CHLORIDE 0.9% 500 ML 130 ML IV (00:02)
[2020-01-11] MEDS: chlordiazePOXIDE 25 MG CAPSULE 50 MG PO ×2 (05:10→13:33)
[2020-01-11 06:23] LABS: Add Manual Diff / Slide Review NO; Basophils Absolute Auto 0 /uL (0-100); Basophils Percent Auto 0.1 % (0-2); Eosinophils Absolute Auto 0 /uL (0-450); Hematocrit 45.1 % (41-53); Hemoglobin 15.7 g/dL (13.5-17.5); Lymphocytes Absolute Auto 500 /uL (1100-4500); Lymphocytes Percent Auto 5.9 % (25-40); Mean Corpuscular HGB Conc 34.9 % (30-36); Mean Corpuscular Hemoglobin 35.8 PG (26-34); Mean Corpuscular Volume 102.6 fL (80-100); Monocytes Absolute Auto 500 /uL (0-900); Monocytes Percent Auto 6.3 % (3-14); Neutrophils Absolute Auto 7100 /uL (1500-7000); Neutrophils Percent Auto 87.7 % (50-75); Platelet Count 120 X10^3/uL (150-400); Red Cell Distribution Width 15.6 % (11.6-14.8); White Blood Cell Count 8.1 X10^3/uL (4.5-11.0)
[2020-01-11 06:30] LABS: BUN Creatinine Ratio 17.6 (6-22); Blood Urea Nitrogen 15 mg/dL (9-20); Calcium 8.1 mg/dL (8.4-10.2); Carbon Dioxide 25 mmol/L (22-32); Chloride 103 mmol/L (98-107); Estimated Glomerular Filt Rate > 60.0 mL/min (>60); Glucose 195 mg/dL (70-100); HEMOLYSIS 21 (0-50); Potassium 3.8 mmol/L (3.4-5.1); Sodium 132 mmol/L (137-145)
[2020-01-11] MEDS: THIAMINE 100 MG TABLET PO (08:34)
[2020-01-11] MEDS: ENOXAPARIN 40 MG/0.4 ML SYRINGE SUBCUT (08:34)
[2020-01-11] MEDS: MULTIVITAMIN 1 TABLET 1 TAB PO (08:34)
[2020-01-11] MEDS: predniSONE 20 MG TABLET PO (08:34)
[2020-01-11] MEDS: hydroCHLOROthiazide 25 MG TABLET PO (08:34)
[2020-01-11] MEDS: ACETAMINOPHEN 325 MG TABLET 650 MG PO ×3 (08:34→22:27)
[2020-01-11] MEDS: FOLIC ACID 1 MG TABLET PO (08:34)
[2020-01-11] MEDS: FAMOTIDINE 20 MG/50 ML PIGGYBACK 200 MG IV ×2 (09:20→23:36)
--- NOTE | 2020-01-11 10:22 | CM.IDA ---
Initial DCP Assessment Note: Pt is a 59 yo male, resident of [place]. Pt presents w/ angioedema and tongue swelling PCP: Adán Holman Payer: [employer] Reviewed chart, met w/pt to explain SW role. Pt is in fairly good spirits today; CIWA 2 at 0800. Pt expects to return home tomorrow w/ no needs. Pt lives in [place] w/ his partner Brisa P# [phone]. Pt feels he has everything he needs at home and Brisa available to assist as needed. Pt has 4 biological children, partner Brisa has 3 children, all 7 of these children live out of the home and are in close contact w/pt and Brisa. Discussed CHRIS: Pt admits he has a long standing h/o alcoholism and grew up w/ an alcoholic father. Pt had been drinking approx a fifth of whiskey daily until 1-2 weeks ago when he began to self taper down to 3 glasses of whiskey daily w/ice cubes. Pt intends to stop drinking after this hospitalization; offered sober/CHRIS treatmentand pt denies need and states when I decide to quit, I quit. Pt reports he has not been sober since 2017. This WET POUR MIXER encouraged pt to consider outpt treatment options; discussed the danger in quitting cold turkey as patient states but pt is not interested in discussing his alcohol use any further P: DC home today or tomorrow via family pov, no further SW needs at this time. DAYSI Galvan
[2020-01-11] MEDS: LACTATED RINGERS 1,000 ML 50 ML IV (11:14)
[2020-01-11] MEDS: MAG HYDROX/ALUM/SIMETH 30 ML UDC PO ×2 (11:34→19:19)
--- NOTE | 2020-01-11 12:01 | P.PN_ITS ---
Subjective Subjective Date Patient Seen: 01/11/20 Time Patient Seen: 08:30 Interval history: Mr. Elroy Larkin is a 59 year old male with history significant for hypertension, prior stroke, chronic EtOH abuse with prior withdrawal treated 07/2018 (where he was intubated for angioedema), dyspepsia and previous angioedema reaction with unknown trigger and alcohol dependence who presented initially for shortness of breath and lip swelling consistent with a ngioedema. He was given steroids and multiple doses of epi. Patient was then agitated, tremulous, and tachycardic and was given multiple doses of benzodiazepine and phenobarbital. He was admitted for alcohol withdrawal and is seen today for follow-up. This morning the patient remained tremulous slightly and complained of mild nausea but denied shortness of breath, cough, chest pain, palpitations. He has been started on a Librium taper. Exam Vital Signs (past 8 hours): - 01/11/20 05:15 01/11/20 09:00 01/11/20 11:41 Temperature 96.6 F L 96.7 F L 98.7 F Pulse Rate 76 72 75 Respiratory Rate 16 18 18 Blood Pressure 150/97 H 139/100 H 121/84 Pulse Oximetry 94 95 96 Oxygen Delivery Method Room Air Oxygen Flow Rate 0 Narrative Exam Narrative: GENERAL APPEARANCE: well developed, overweight male who is restless and fidgety in no acute distress. HEENT: Normocephalic, atraumatic, no scalp lesions. pupils equal, round, reactive to light and accommodation, sclera non-icteric, EOMs intact. Oral mucosa moist. minimal tongue swelling, palate normal, no dysarthria. NECK/THYROID: well healed surgical posterior cervical spine, mild swelling without adenopathy right lateral neck, no stridor, no jugular venous distention, no carotid bruit, no thyromegaly, trachea midline. LYMPH NODES: Left anterior cervical chain tenderness on palpation. No supraclavicular lymphadenopathy. SKIN: [place] warm and dry, [place]aria anterior chest improving HEART: regular rate and rhythm, S1-S2 without murmur, no rubs or gallops, brisk capillary refill, trace edema LUNGS: clear to auscultation bilaterally, no coarseness crackles or wheezing, no cough present CHEST: Symmetrical movement, no accessory muscle use, good tidal volume, speaking in full sentences. ABDOMEN: Soft, no distention, epigastric pain on palpation, no guarding or peritoneal signs, no organomegaly, active bowel tones. BACK: Normal curvature, nontender to palpation, no CVA tenderness on percussion EXTREMITIES: moves all extremities, no deformities or joint effusions. NEUROLOGIC: AAO x4, mild residual right facial doop, remainder of cranial nerves grossly intact , motor strength 5/5 and symmetrical bilateral upper and lower extremities. + tremulousness and tongue fasciculations PSYCH: alert, good eye contact, anxious, fidgety. Objective Labs Result Diagrams: 01/11/20 05:55 01/11/20 05:55 Labs: Laboratory Results - last 24 hr 01/10/20 01/10/20 01/10/20 12:35 15:10 15:10 WBC 7.3 RBC 4.87 Hgb 17.6 H Hct 49.6 MCV 102.0 H MCH 36.1 H MCHC 35.4 RDW 15.5 H Plt Count 142 L Neut % (Auto) 91.2 H Lymph % (Auto) 7.4 L [place] % (Auto) 1.2 L Eos % (Auto) 0.0 L Baso % (Auto) 0.2 Neut # (Auto) 6700 Lymph # (Auto) 500 L [place] # (Auto) 100 Eos # (Auto) 0 Baso # (Auto) 0 PT 10.9 INR 0.9 ABG pH 7.45 ABG pCO2 34.3 L ABG pO2 78 L ABG HCO3 24 ABG Total CO2 25 ABG O2 Saturation 96 ABG Base Excess 0.0 FiO2 21 Sodium Potassium Chloride Carbon Dioxide BUN Creatinine Estimated GFR BUN/Creatinine Ratio Glucose Calcium Phosphorus Magnesium Total Bilirubin AST ALT Alkaline Phosphatase Total Protein Albumin Globulin Albumin/Globulin Ratio U Opiates 300ng/mL cut Ur Oxycodone Screen Urine Methadone Screen Ur Barbiturates Screen U Tricyclic Antidepress Ur Phencyclidine Scrn Ur Amphetamines Screen U Methamphetamines Scrn Ur MDMA Scrn (Ecstasy) U Benzodiazepines Scrn Urine Cocaine Screen U Marijuana (THC) Screen Ethyl Alcohol 01/10/20 01/10/20 01/10/20 15:10 15:10 17:50 WBC RBC Hgb Hct MCV MCH MCHC RDW Plt Count Neut % (Auto) Lymph % (Auto) [place] % (Auto) Eos % (Auto) Baso % (Auto) Neut # (Auto) Lymph # (Auto) [place] # (Auto) Eos # (Auto) Baso # (Auto) PT INR ABG pH ABG pCO2 ABG pO2 ABG HCO3 ABG Total CO2 ABG O2 Saturation ABG Base Excess FiO2 Sodium 136 L Potassium 3.1 L Chloride 100 Carbon Dioxide 19 L BUN 12 Creatinine 0.88 Estimated GFR > 60.0 BUN/Creatinine Ratio 13.6 Glucose 153 H Calcium 8.6 Phosphorus 3.7 Magnesium 1.7 Total Bilirubin 1.1 AST 357 H ALT 416 H Alkaline Phosphatase 105 Total Protein 6.9 Albumin 4.1 Globulin 2.8 Albumin/Globulin Ratio 1.5 U Opiates 300ng/mL cut Negative Ur Oxycodone Screen Negative Urine Methadone Screen Negative Ur Barbiturates Screen Negative U Tricyclic Antidepress Negative Ur Phencyclidine Scrn Negative Ur Amphetamines Screen Negative U Methamphetamines Scrn Negative Ur MDMA Scrn (Ecstasy) Negative U Benzodiazepines Scrn Negative Urine Cocaine Screen Negative U Marijuana (THC) Screen Negative Ethyl Alcohol 22 H 01/11/20 01/11/20 05:55 05:55 WBC 8.1 RBC 4.40 L Hgb 15.7 Hct 45.1 MCV 102.6 H MCH 35.8 H MCHC 34.9 RDW 15.6 H Plt Count 120 L Neut % (Auto) 87.7 H Lymph % (Auto) 5.9 L [place] % (Auto) 6.3 Eos % (Auto) 0.0 L Baso % (Auto) 0.1 Neut # (Auto) 7100 H Lymph # (Auto) 500 L [place] # (Auto) 500 Eos # (Auto) 0 Baso # (Auto) 0 PT INR ABG pH ABG pCO2 ABG pO2 ABG HCO3 ABG Total CO2 ABG O2 Saturation ABG Base Excess FiO2 Sodium 132 L Potassium 3.8 Chloride 103 Carbon Dioxide 25 BUN 15 Creatinine 0.85 Estimated GFR > 60.0 BUN/Creatinine Ratio 17.6 Glucose 195 H Calcium 8.1 L Phosphorus Magnesium Total Bilirubin AST ALT Alkaline Phosphatase Total Protein Albumin Globulin Albumin/Globulin Ratio U Opiates 300ng/mL cut Ur Oxycodone Screen Urine Methadone Screen Ur Barbiturates Screen U Tricyclic Antidepress Ur Phencyclidine Scrn Ur Amphetamines Screen U Methamphetamines Scrn Ur MDMA Scrn (Ecstasy) U Benzodiazepines Scrn Urine Cocaine Screen U Marijuana (THC) Screen Ethyl Alcohol Assessment & Plan Assessment & Plan narrative: Mr. Elroy Larkin is a 59 year old male with history significant for hypertension, prior stroke, chronic EtOH abuse with prior withdrawal treated 07/2018 (where he was intubated for angioedema), dyspepsia and previous angioedema reaction with unknown trigger and alcohol dependence who presented initially for shortness of breath and lip swelling consistent with angioedema. He was given steroids and multiple doses of epi. Patient was then agitated, tremulous, and tachycardic and was given multiple doses of benzodiazepine and phenobarbital. He was admitted for alcohol with drawal. 1. Alcohol dependence in acute withdrawal, present on admission, active. -patient endorse consuming a 5th of whiskey daily, last drink yesterday morning. He reports waking tremulous and drinks to resolve his daily symptoms. No history seizures. Prior inpatient treatment for withdrawal noted 07/2018 where he was intubated for angioedema and then developed withdrawal. EtOH on admission was 22. -patient with escalating withdrawal symptoms while in the emergency department with visible tremors, anxiety and restlessness no visual disturbances hallucinations nausea or vomiting, no diaphoresis. Symptoms are now improved on librium taper. -patient received multiple doses of lorazepam in the ER totaling 5.5 mg and phenobarb 260 mg IV. On admission evaluation CIWA score 11. -continue CIWA protocol with seizure precautions. -ordered lorazepam p.o. and IV per CIWA protocol -Librium currently 50 mg q8 hr, decrease to 25 mg q8 tonight. -banana bag followed by lactated Ringer's at 50 cc/hour. -contine multi vitamins thiamine and folate daily. -appreciate social work assistance in management. 2. Acute angioedema, allergic reaction, present on admission, active -patient complained of tongue and facial swelling onset this morning not improving with home Benadryl, Prednisone and Pepcid. -angioedema remains of unknown etiology, no identifiable triggers or exposures to account for his symptoms. -patient's angioedema symptoms resolved with ER treatment with no shortness of breath, cough, dysarthria or dysphagia, uticaria noted on chest which are improving. -in the ER the patient received methylprednisolone 125 mg and Pepcid 20 mg IV, with persistent left lingual edema and left lateral neck swelling. -will continue prednisone 20 mg daily with taper -famotidine 20 mg mg IV every 12 hours. patient refuses other H2 blockers at this time and only available IV on formulary. -c/w Benadryl 50 mg as needed recurrent symptoms. 3. Elevated liver enzymes, acute, present on admission - new elevations in LFTs on admission, likely secondary to alcoholic hepatitis. INR within normal limits and normal Tbili. Discriminant function not significantly elevated. - will order hepatitis screening and liver ultrasound - patient plans on not drinking after this admission, refused post discharge resources for help with cessation. 4. Chronic Hypertension, present on arrival, active -patient with hypertension upon arrival with blood pressure 140/98. -patient with elevated blood pressure in the ER following treatment with epinephrine for acute angioedema. -patient received 3 doses of metoprolol 5 mg IV while in the ER. -previously patient thought to have angioedema related to lisinopril and had previously been on amlodipine. -will continue patient's current home regimen of hydrochlorothiazide 25 mg daily. -will follow blood pressure. 5. Hypokalemia, acute, present on admission, resolved -patient reports diarrhea for the last several days, no nausea vomiting. -potassium 3.1 on admission labs, now 3.8 after repletion. Will continue to follow. 6. Gastroesophageal reflux disorder, chronic, stable -patient is status post Titi fundoplication -famotidine 20 mg IV every 12 hours -ordered Mylanta and calcium carbonate as needed. 7. Tobacco dependence, active -patient has an approximately 16 pack/year smoking history. -encouraged smoking cessation. Refused nicotine patch. The patient is admitted to the hospital following treatment for acute angioedema and development of acute alcohol withdrawal. Anticipate discharge in the next 1- 2 days after completion of librium taper and improvement in liver enzymes. Quality VTE Deep Vein Thrombosis/Pulmonary Embolism Present on Admission: No
[2020-01-11 12:20] LABS: Alanine Aminotransferase 311 IU/L (<50); Albumin 3.4 g/dL (3.5-5.0); Albumin Globulin Ratio 1.4 (1.0-2.8); Alkaline Phosphatase 67 U/L (38-126); Aspartate Aminotransferase 197 IU/L (17-59); Bilirubin Total 1.3 mg/dL (0.2-1.3); Bilirubin Unconjugated 0.9 mg/dL (0.0-1.1); Globulin 2.5 g/dL (1.7-4.1); HEMOLYSIS 20 (0-50); Total Protein 5.9 g/dL (6.3-8.2)
--- NOTE | 2020-01-11 12:38 | DI.US.S_ITS ---
PROCEDURE: US ABDOMEN LIMITED INDICATIONS: ELEVATED LFTS TECHNIQUE: Real-time focused scanning was performed of the abdomen, with image documentation. COMPARISON: [facility], US, US ABDOMEN COMPLETE, 01/15/2019, 9:57. [facility], CT, CT ABDOMEN PELVIS W CON, 06/10/2019, 12:38. [facility], RG, US ABDOMEN, 08/02/1999, 9:23. FINDINGS: The liver demonstrates enlarged size. The liver demonstrates generalized increased echogenicity. This decreases ultrasound sensitivity for detection of hepatic masses. No findings of gallstones or sludge are seen. The gallbladder wall is not thickened, measuring 3 mm or less. No specific pericholecystic fluid is seen. The sonographic Judd sign is negative. There is no biliary dilatation, the common bile duct measures 7 mm, which is at the upper limits of normal. IMPRESSION: Enlarged, fatty liver. The gallbladder demonstrates a normal sonographic appearance. No biliary dilatation is seen. Dictated by: Candido Vega M.D. on 01/11/2020 at 15:07 Approved by: Candido Vega M.D. on 01/11/2020 at 15:10
--- NOTE | 2020-01-11 15:41 | PC.NURSE ---
Shift summary: Alert and oriented X3 (except sometimes thinks he's at home right when he wakes up). Denies feeling much as far as ETOH withdrawal symptoms, CIWA 2. Medicated with scheduled Librium as ordered. Up to BR with SBA, a bit shaky but fairly steady on his feet. Tele monitoring ongoing. Tongue and face appeared without s/sx angioedema and patient reported that it seems like it's back to normal. Denied any difficulties breathing or swallowing, none noted by this auto service writer. Banana bag completed, LR infusing per order. Able to make needs known and tries to call appropriately. Can be impulsive w/ urgency r/t loose stools. Call light and belongings within reach. Seizure pads in place, bed alarm on.
[2020-01-11] MEDS: chlordiazePOXIDE 25 MG CAPSULE PO (21:02)
[2020-01-12] MEDS: chlordiazePOXIDE 25 MG CAPSULE PO (04:58)
[2020-01-12 05:38] LABS: Hepatitis B Core Antibody Negative (Negative)
[2020-01-12 05:42] VITALS: BP 132/81; PULSE 64; RESP 16; TEMP 36.1; O2SAT 99
[2020-01-12 06:51] LABS: Alanine Aminotransferase 282 IU/L (<50); Albumin 3.1 g/dL (3.5-5.0); Albumin Globulin Ratio 1.2 (1.0-2.8); Alkaline Phosphatase 61 U/L (38-126); Aspartate Aminotransferase 175 IU/L (17-59); BUN Creatinine Ratio 19.5 (6-22); Bilirubin Total 1.1 mg/dL (0.2-1.3); Blood Urea Nitrogen 16 mg/dL (9-20); Calcium 8.1 mg/dL (8.4-10.2); Carbon Dioxide 27 mmol/L (22-32); Chloride 106 mmol/L (98-107); Estimated Glomerular Filt Rate > 60.0 mL/min (>60); Globulin 2.6 g/dL (1.7-4.1); Glucose 89 mg/dL (70-100); HEMOLYSIS < 15 (0-50); Magnesium 2.1 mg/dL (1.6-2.3); Potassium 3.4 mmol/L (3.4-5.1); Sodium 136 mmol/L (137-145); Total Protein 5.7 g/dL (6.3-8.2)
[2020-01-12 08:00] VITALS: BP 157/86; PULSE 78; RESP 16; TEMP 36.8; O2SAT 97
[2020-01-12 09:11] LABS: Hepatitis B Surface Antigen NEGATIVE s/c (NEGATIVE)
[2020-01-12] MEDS: hydroCHLOROthiazide 25 MG TABLET PO (09:27)
[2020-01-12] MEDS: MULTIVITAMIN 1 TABLET 1 TAB PO (09:27)
[2020-01-12] MEDS: FOLIC ACID 1 MG TABLET PO (09:27)
[2020-01-12 09:29] LABS: Hep C Virus Ab w/Reflex Quant NEGATIVE s/c (NEGATIVE)
[2020-01-12] MEDS: THIAMINE 100 MG TABLET PO (09:39)
[2020-01-12] MEDS: predniSONE 20 MG TABLET PO (09:39)
--- NOTE | 2020-01-12 10:32 | CM.DPC ---
DCP Discharge Home Per MD, pt is medically stable to d/c home with supportive Sig Hardy Ledezma and continues to deny any community resources for ETOH and plans to self abstain from alcohol and taper. Per RN, no concerns at this time. Plan: Patient to d/c home with Sig Other's POV and no SW needs at this time. DAYSI Smith
--- NOTE | 2020-01-12 11:11 | PC.NURSE ---
Discharge: IV dc'd intact. Float BARBARA Mcfadden reviewed D/C instructions thoroughly with patient and he verbalized understanding w/ no further questions. All personal belongings sent with patient at discharge including clothing, cellphone, wallet (and all contents). Wheeled out to private vehicle by nursing staff.
--- NOTE | 2020-01-12 18:40 | P.DS_ITS ---
History of Present Illness History of Present Illness Date Patient Seen: 01/12/20 Time Patient Seen: 09:15 Chief complaint: swollen tongue/throat Narrative: As per SIRIA Gunter: Mr. Elroy Larkin is a 59 year old male with history significant for h ypertension, prior stroke, dyspepsia and previous angioedema reaction with unknown trigger and alcohol dependence who presents to the ER today with complaints of angioedema and tongue swelling.. He reports developing of swelling of the left face and left side his tongue and soft palate as well as swelling and tenderness to the left upper lateral neck this morning. The patient is followed by door installer and followed his home regimen of Pepcid 20 mg, diphenhydramine 50 mg and prednisone 20 mg without relief of symptoms. The etiology of the angioedema is believed to be allergic in origin but no specific trigger has been identified. He reports no changes in diet food or environmental exposures and the last day. The patient additionally acknowledges consuming whiskey daily which is escalated from 2 drinks a day to a 5th of whiskey daily over the last 3 months. He reports his last drink was this morning. He reports he wakes up tremulous and drinks alleviating his symptoms. He canal is is using alcohol to get to sleep. He denies withdrawal seizures. He denies recent illness, fevers or chills. He does complain of a throbbing headache rated at 8/10. Denies complaints chest pain or palpitations, shortness of breath cough or wheezing. He has frequent abdominal pain that he states his doctor tells him is gastritis. He denies nausea or vomiting but has had loose stools for the last couple days. He denies difficulty urinating. Denies recent falls and is independent in all ADLs. Upon arrival in the ER the patient is afebrile with a temperature of 98.1?, heart rate of 96, blood pressure 140/98 with respiratory rate of 20 saturating 95% on room air. A chest x-rays taken which finds no acute cardiopulmonary pathology. An EKG is obtained which finds sinus rhythm with ventricular rate of 88 without block or ectopy and no ST or T-wave changes. On laboratory analysis patient has white count of 7.3, hemoglobin of 17.6, hematocrit of 49.6 and platelets of 142. On coagulation has a PT of 10.9 with an INR 0.9. An ABG is obtained which finds a pH of 7.45 with pCO2 of 34.3, PO2 of 78 and bicarbonate of 24 with a base excess 0, O2 saturation on ABG is 96%. On chemistries C he has a sodium 136, potassium of 3.1, BUN of 12 and a creatinine of 0.88. His nonfasting glucose is 153. On liver functions he has a total bilirubin of 1.1 AST of 357, ALT of 416 can and alkaline phosphatase of 105. He has an albumin of 4.1. On toxicology he has an alcohol level of 22. In the ER the angioedema was treated with an additional 25 mg of Benadryl, epinephrine 0.3 mg IM with repeat dose for continuing sent symptoms, famotidine 20 mg IV and methylprednisolone 125 mg. The patient had resolution of angioedema however while in the ED the patient became tachycardic and hypertensive and was given 3 doses of metoprolol 5 mg IV for heart rate up to 126. The patient also appears tremulous agitated with headache consistent with alcohol withdrawal and is given serial doses of lorazepam starting at 0.5 mg escalating to 1 mg x2 and then 2 mg for total dose of 5.5 mg. The patient remains tremulous and agitated and is given phenobarbital 206 mg IV with improvement in withdrawal symptoms. Following extensive discussion with the patient the patient is admitted to the medicine service for alcohol withdrawals. Discharge Providers Provider Date of admission: 01/10/20 20:00 Discharge Date: 01/12/20 Primary care physician: Adán Holman Consults: 01/10/20 20:07 Consult to Dietitian, Adult Routine Comment: Reason For Exam: Alcohol dependence Consult to Discharge Planning Routine Comment: Discharge provider: Gene Cleary DO Summary Hospital Course Hospital Course: Mr. Elroy Larkin is a 59 year old male with history significant for hypertension, prior stroke, chronic EtOH abuse with prior withdrawal treated 07/2018 (where he was intubated for angioedema), dyspepsia and previous angioedema reaction with unknown trigger and alcohol dependence who presented initially for shortness of breath and lip swelling consistent with angioedema. He was given steroids and multiple doses of epi. Patient was then agitated, tremulous, and tachycardic and was given multiple doses of benzodiazepine and phenobarbital. He was then admitted for alcohol withdrawal for which he completed a librium taper. On the day of discharge he was without withdrawal symptoms and had no further swelling. 1. Alcohol dependence in acute withdrawal, present on admission, active. -patient endorsed consuming a 5th of whiskey daily, last drink morning prior to admission. He reports waking tremulous and drinks to resolve his daily symptoms. No history seizures. Prior inpatient treatment for withdrawal noted 07/2018 where he was intubated for angioedema and then developed withdrawal. EtOH on admission was 22. -patient with escalating withdrawal symptoms while in the emergency department with visible tremors, anxiety and restlessness no visual disturbances hallucinations nausea or vomiting, no diaphoresis. Symptoms resolved after treatment with librium taper. -patient received multiple doses of lorazepam in the ER totaling 5.5 mg and phenobarb 260 mg IV. On admission evaluation CIWA score 11. 2. Acute angioedema, allergic reaction, present on admission, resolved -patient complained of tongue and facial swelling onset not improving with home Benadryl, Prednisone and Pepcid. -angioedema remains of unknown etiology, no identifiable triggers or exposures to account for his symptoms. -patient's angioedema symptoms resolved with ER treatment with no shortness of breath, cough, dysarthria or dysphagia, uticaria noted on chest which improved. -in the ER the patient received methylprednisolone 125 mg and Pepcid 20 mg IV, with persistent left lingual edema and left lateral neck swelling which did resolve with continued prednisone. -will continue prednisone on home regimen on discharge as well as famotidine. 3. Elevated liver enzymes, acute, present on admission - new elevations in LFTs on admission, likely secondary to alcoholic hepatitis. INR within normal limits and normal Tbili. Discriminant function not significantly elevated. - liver ultrasound was unremarkable and LFTs improved. - patient plans on not drinking after this admission, refused post discharge resources for help with cessation. 4. Chronic Hypertension, present on arrival, active -no changes were made to the patients blood pressure regimen. 5. Hypokalemia, acute, present on admission, resolved -patient reports diarrhea for the last several days, which resolved during admission, no nausea vomiting. -potassium 3.1 on admission labs, now 3.8 after repletion. 6. Gastroesophageal reflux disorder, chronic, stable -patient is status post Titi fundoplication -famotidine 20 mg IV every 12 hours while admitted, can resume home oral famotidine as an outpatient. 7. Tobacco dependence, active -patient has an approximately 16 pack/year smoking history. -encouraged smoking cessation. Refused nicotine patch. Dispo: Discharged home. Status at Discharge Cognitive/behavioral status at discharge: calm Functional status at discharge: independent ambulation Overall status at discharge: patient is back to baseline Time Spent with Patient Time spent: Greater than 30 minutes Exam Vital Signs (past 8 hours): Oxygen Delivery Method Room Air Oxygen Flow Rate 0 Narrative Exam Narrative: GENERAL APPEARANCE: well developed, overweight male who is in no acute distress. HEENT: Normocephalic, atraumatic, no scalp lesions. pupils equal, round, reactive to light and accommodation, sclera non-icteric, EOMs intact. Oral mucosa moist. minimal tongue swelling, palate normal, no dysarthria. NECK/THYROID: well healed surgical posterior cervical spine, mild swelling without adenopathy right lateral neck, no stridor, no jugular venous distention, no carotid bruit, no thyromegaly, trachea midline. LYMPH NODES: Left anterior cervical chain tenderness on palpation. No supraclavicular lymphadenopathy. SKIN: [place] warm and dry, U[place]aria anterior chest resolved HEART: regular rate and rhythm, S1-S2 without murmur, no rubs or gallops, brisk capillary refill, trace edema LUNGS: clear to auscultation bilaterally, no coarseness crackles or wheezing, no cough present CHEST: Symmetrical movement, no accessory muscle use, good tidal volume, speaking in full sentences. ABDOMEN: Soft, no distention, epigastric pain on palpation, no guarding or peritoneal signs, no organomegaly, active bowel tones. BACK: Normal curvature, nontender to palpation, no CVA tenderness on percussion EXTREMITIES: moves all extremities, no deformities or joint effusions. NEUROLOGIC: AAO x4, mild residual right facial doop, remainder of cranial nerves grossly intact , motor strength 5/5 and symmetrical bilateral upper and lower extremities. improved, mild tremulousness without tongue fasciculations. PSYCH: alert, good eye contact, appropriate behavior. Objective Labs Result Diagrams: 01/11/20 05:55 01/12/20 06:10 Labs: Laboratory Results - last 24 hr 01/11/20 01/12/20 01/12/20 05:55 06:10 06:10 Sodium 136 L Potassium 3.4 Chloride 106 Carbon Dioxide 27 BUN 16 Creatinine 0.82 Estimated GFR > 60.0 BUN/Creatinine Ratio 19.5 Glucose 89 D Calcium 8.1 L Magnesium 2.1 Total Bilirubin 1.1 AST 175 H ALT 282 H Alkaline Phosphatase 61 Total Protein 5.7 L Albumin 3.1 L Globulin 2.6 Albumin/Globulin Ratio 1.2 Hep Bs Antigen Negative Hep B Core Total Ab Negative Hepatitis C Antibody Negative Discharge Plan Discharge Plan Patient Disposition: Home Discharge comment: You were admitted to the hospital for treatment of alcohol withdrawal after another episode of angioedema. You did not want additional resources to stop drinking and your angioedema imprvoed in the emergency room. Please continue your previous dose of prednisone upon discharge. Discharge orders & Medications Prescriptions: Continued epinephrine [EpiPen] 0.3 mg/0.3 mL auto-injector 0.3 mg IM Q15M PRN (Reason: angioedema) Qty: 2 RF: 0 diphenhydramine HCl [Benadryl] 25 mg capsule 25 mg PO BEDTIME Qty: 60 RF: 0 hydrochlorothiazide 25 mg tablet 25 mg PO QAM RF: 0 famotidine 20 mg Tablet 20 mg PO BID RF: 0 prednisone 20 mg Tablet 40 mg PO DAILY RF: 0 Follow up/Referrals: Adán Holman [Primary Care Provider] - Diet/Activity/Treatments Diet: Diet as Tolerated Diet comment: As tolerated Activity: As tolerated Visit Report/Discharge Packet Instructions: DI for Angioedema, DI for Drug or Alcohol Withdrawal Discharge Data Primary Care Provider: Adán Holman Discharges patient from system. Discharge Date/Time: 01/12/20 11:13 Quality VTE Deep Vein Thrombosis/Pulmonary Embolism Present on Admission: No
[2020-01-13 12:04] LABS: Hepatitis B Surf Ab Qualitativ Non Reactive (.)
== END 2020-01-12 11:13 | disposition home or self-care (01) | DRG 897 ==
LOC: ED 11:54 → AC 20:06
PROVIDERS: Internal Medicine; Admitting Provider Nurse Practitioner Adult Health; Emergency Provider Emergency Medicine; PCP Physician Assistant Medical; Referring Provider Emergency Medicine; Visit Provider Nurse Practitioner Adult Health
DX: F10.230 Alcohol dependence with withdrawal, uncomplicated (principal); T78.3XXA Angioneurotic edema, initial encounter; Y90.1 Blood alcohol level of 20-39 mg/100 ml; K70.10 Alcoholic hepatitis without ascites; I10 Essential (primary) hypertension; F17.210 Nicotine dependence, cigarettes, uncomplicated; Z86.73 Personal history of transient ischemic attack (TIA), and cerebral infarction without residual deficits; E87.6 Hypokalemia; K21.9 Gastro-esophageal reflux disease without esophagitis; R94.5 Abnormal results of liver function studies
CPT/HCPCS: 36415; 36600; 71045; 76705; 80048; 80053; 80076; 80305; 80320; 82805; 83735; 84100; 85025; 85610; 86704; 86706; 86803; 87340; 93005; 96361; 96365; 96368; 96372; 96375; 96376; 99284; J0171; J1200; J1650; J1885; J2060; J2560; J2930; J3475; J3480

== ENCOUNTER 2020-01-19 05:48 | Emergency (ER) | payer MEDICARE, MEDICAID, SELFPAY ==
[2018-08-01 09:00] VITALS: PULSE 43; RESP 16; O2SAT 96
[2020-01-10 21:17] VITALS: BMI 31.2
--- NOTE | 2020-01-19 05:50 | ED.ALLEREA ---
HPI - Allergic Reaction <Devang Mccollum DO - Last Filed: 01/20/20 00:29> General Chief complaint: Allergic Reaction Stated complaint: Angio edema/rt side Time Seen by Provider: 01/19/20 05:49 Source: patient Mode of arrival: Ambulatory Limitations: no limitations History of Present Illness HPI narrative: 60-year-old male smoker and heavy drinker (up until 1 week ago) with longstanding history of angioedema presents by EMS for another episode. Patient went to bed in his normal state of health and awoke with right-sided tongue swelling, throat fullness and anterior neck swelling. He denies any chest pain or shortness of breath nor nausea, vomiting or diarrhea. Patient has had multiple extensive workups and as of now the cause of his angioedema is unknown. He took some Benadryl and prednisone at home. He denies any exposure to new foods, medications, past or other possible triggers. He was most recently seen here on 01/09 and admitted after an angioedema episode with subsequent development of early withdrawal symptoms MD complaint: facial swelling Onset (ago): hour(s) Exposure: unknown Symptoms: difficulty swallowing and tongue swelling Severity: moderate Treatment prior to arrival: benadryl and steroids Previous Allergic Reaction History: prior ED visit(s) and angioedema Related Data Home Medications Medication Instructions Recorded Confirmed hydrochlorothiazide 25 mg PO QAM 06/10/19 01/10/20 famotidine 20 mg PO BID 01/10/20 01/10/20 prednisone 40 mg PO DAILY 01/10/20 01/10/20 Previous Rx's Medication Instructions Recorded epinephrine [EpiPen] 0.3 mg IM Q15M PRN #2 each 11/14/19 diphenhydramine HCl [Benadryl] 25 mg PO BEDTIME #60 cap 11/23/19 prednisone See Rx Instructions .ROUTE 01/19/20 .COMPLEX #14 tab Allergies Allergy/AdvReac Type Severity Reaction Status Date / Time lisinopril Allergy Severe Swelling Verified 01/10/20 11:12 of Lip/Tongue/Throat citalopram [CITALOPRAM] Allergy Unknown SEIZURES Verified 01/10/20 11:12 hydrocodone [HYDROCODONE] AdvReac Mild N/V Verified 01/10/20 11:12 Review of Systems <DO Cassandra Monroe Last Filed: 01/20/20 00:29> Constitutional Constitutional: Denies chills, Denies fatigue, Denies fever(s), Denies frequent falls, Denies lethargy and Denies weakness Eyes Eyes: Denies change in vision, Denies eye discharge, Denies irritation and Denies loss of vision ENT Ears, Nose, Mouth, and Throat: Denies change in voice, Denies dizziness, Denies neck pain, Denies sore throat, Reports throat swelling and Reports tongue swelling Cardiovascular Cardiovascular: Denies chest pain, Denies irregular heart rhythm, Denies lightheadedness, Denies palpitations, Denies dyspnea, Denies dyspnea on exertion and Denies orthopnea Respiratory Respiratory: Denies cough, Denies dyspnea, Denies dyspnea on exertion and Denies wheezing Gastrointestinal Gastrointestinal: Denies abdominal pain, Denies change in bowel habits, Denies diarrhea, Denies nausea and Denies vomiting Genitourinary Genitourinary: Denies hematuria, Denies flank pain, Denies urinary incontinence and Denies urinary urgency Musculoskeletal Musculoskeletal: Denies back pain, Denies muscle weakness, Denies neck pain, Denies numbness and Denies tingling Integumentary/Breasts Skin/Breast: Denies pruritus, Denies erythema, Denies rash and Denies wounds Neurologic Neurologic: Denies behavioral changes, Denies confusion, Denies dizziness, Denies frequent falls, Denies loss of vision, Denies numbness, Denies tingling and Denies weakness Psychiatric Psychiatric: Denies anxiety, Denies behavioral changes, Denies confusion, Denies depression, Denies homicidal ideation and Denies suicidal ideation Endocrine Endocrine: Denies fatigue, Denies flushing and Denies palpitations Hematologic/Lymphatic Hematologic/Lymphatic: Denies easy bruising Allergic/Immunologic Allergic/Immunologic: Denies urticaria, Reports throat swelling, Reports tongue swelling and Denies wheezing Patient History <Devang Mccollum DO - Last Filed: 01/20/20 00:29> Medical History Alcohol dependence (Acute) Chronic thoracic spine pain (Acute) Dyspepsia (Acute) History of rib fracture (Acute) History of stroke (Acute) Hx of angioedema (Acute) Hypertension (Acute) Injury of hip, right (Acute) Intermittent lightheadedness (Acute) Surgical History History of eye surgery (Acute) History of Blanche fundoplication (Acute) History of splenectomy (Acute) Status post cervical spinal fusion (Acute) Family History Father Congestive heart failure Lymph edema Mother Perforated sigmoid colon Brother Stroke Sister Hypertension Social History household members: family and children Smoking Status: Current every day smoker Smoking Status: Current every day smoker alcohol intake frequency: 3 or more drinks per day Alcohol type: hard liquor Substance Use Type: does not use Exam <Devang Mccollum DO - Last Filed: 01/20/20 00:29> Narrative Exam Narrative: GENERAL: 60 [] year old patient appears stated age. Well-nourished, well-developed patient, in mild distress. HEAD: Atraumatic. Normocephalic. No obvious external facial swelling. EYES: Pupils equal round and reactive. Extraocular motions intact. No scleral icterus. No injection or drainage. ENT: Right sided asymetric swelling of tongue with mild involvement of posterior pharynx. Tolerating saliva without difficulty. No nasal drainage NECK: Trachea midline. Non tender. No obvious external swelling CARDIOVASCULAR: Regular rate and rhythm without murmurs, gallops, or rubs. RESPIRATORY: Clear to auscultation. Breath sounds equal bilaterally. No wheezes, rales, or rhonchi. GASTROINTESTINAL: Abdomen soft, non-tender, nondistended. EXTREMITIES: No edema or joint tenderness. BACK: Nontender without deformity or crepitance. No flank tenderness. NEURO: AOx3. SKIN: No rash or erythema of visible areas Initial Vital Signs Initial Vital Signs: Vital Signs Temperature 98.2 F 01/19/20 05:56 Pulse Rate 88 01/19/20 05:56 Respiratory Rate 16 01/19/20 05:56 Blood Pressure 149/95 H 01/19/20 05:56 Pulse Oximetry 96 01/19/20 05:56 <Poppy David DO - Last Filed: 01/19/20 12:51> Initial Vital Signs Initial Vital Signs: Vital Signs Temperature 98.2 F 01/19/20 05:56 Pulse Rate 88 01/19/20 05:56 Respiratory Rate 16 01/19/20 05:56 Blood Pressure 149/95 H 01/19/20 05:56 Pulse Oximetry 96 01/19/20 05:56 Course <Devangmajor Mccollum DO - Last Filed: 01/20/20 00:29> Orders Ordered: Discontinued Medications Dexamethasone (Decadron) 10 mg IV NOW ONE Stop: 01/19/20 05:56 Last Admin: 01/19/20 06:18 Dose: 10 mg Documented by: IVETTE Diphenhydramine HCl (Benadryl) 25 mg IV NOW ONE Stop: 01/19/20 05:56 Last Admin: 01/19/20 06:18 Dose: 25 mg Documented by: IVETTE Epinephrine HCl (Adrenalin) 0.5 mg IM NOW ONE Stop: 01/19/20 05:56 Last Admin: 01/19/20 06:17 Dose: 0.5 mg Documented by: IVETTE Sodium Chloride (Normal Saline 0.9%) 1,000 mls @ 1,000 mls/hr IV BOLUS ONE Stop: 01/19/20 06:54 Last Infusion: 01/19/20 12:10 Dose: 0 mls/hr Documented by: Admin: 01/19/20 06:19 Dose: 1,000 mls/hr Documented by: IVETTE Famotidine (Pepcid) 20 mg in 50 mls @ 200 mls/hr IV NOW ONE Stop: 01/19/20 06:12 Last Infusion: 01/19/20 06:47 Dose: 0 mls/hr Documented by: Admin: 01/19/20 06:19 Dose: 200 mls/hr Documented by: IVETTE Potassium Chloride 40 meq/ (Sodium Chloride) 520 mls @ 130 mls/hr IV NOW ONE Stop: 01/19/20 10:54 Last Infusion: 01/19/20 12:22 Dose: 130 mls/hr Documented by: VIOLA Cosigned by: CHRIS Admin: 01/19/20 07:05 Dose: 130 mls/hr Documented by: EMMANUEL Cosigned by: IVETTE Ketorolac Tromethamine (Toradol) 15 mg IV NOW ONE Stop: 01/19/20 05:56 Last Admin: 01/19/20 06:18 Dose: 15 mg Documented by: IVETTE Methylprednisolone (Solu-Medrol 125 Mg Vial) 125 mg IV NOW ONE Stop: 01/19/20 08:57 Last Admin: 01/19/20 09:07 Dose: 125 mg Documented by: VIOLA Potassium Chloride (Potassium Chloride) 40 meq PO NOW ONE Stop: 01/19/20 06:56 Last Admin: 01/19/20 07:05 Dose: 40 meq Documented by: EMMANUEL Reevaluation(s) Reevaluation #1: minimal change Vital Signs Vital signs: Vital Signs - 8 hr 01/19/20 05:56 01/19/20 08:52 01/19/20 10:30 Temperature 98.2 F Pulse Rate 88 73 77 Respiratory Rate 16 21 24 Blood Pressure 149/95 H Blood Pressure [Right Arm] 123/83 145/96 H Pulse Oximetry 96 95 99 01/19/20 11:46 01/19/20 11:49 Temperature Pulse Rate 83 82 Respiratory Rate 13 19 Blood Pressure Blood Pressure [Right Arm] 142/89 H 142/89 H Pulse Oximetry 98 98 <Poppy David, - Last Filed: 01/19/20 12:51> Orders Ordered: Discontinued Medications Dexamethasone (Decadron) 10 mg IV NOW ONE Stop: 01/19/20 05:56 Last Admin: 01/19/20 06:18 Dose: 10 mg Documented by: IVETTE Diphenhydramine HCl (Benadryl) 25 mg IV NOW ONE Stop: 01/19/20 05:56 Last Admin: 01/19/20 06:18 Dose: 25 mg Documented by: IVETTE Epinephrine HCl (Adrenalin) 0.5 mg IM NOW ONE Stop: 01/19/20 05:56 Last Admin: 01/19/20 06:17 Dose: 0.5 mg Documented by: IVETTE Sodium Chloride (Normal Saline 0.9%) 1,000 mls @ 1,000 mls/hr IV BOLUS ONE Stop: 01/19/20 06:54 Last Infusion: 01/19/20 12:10 Dose: 0 mls/hr Documented by: Admin: 01/19/20 06:19 Dose: 1,000 mls/hr Documented by: IVETTE Famotidine (Pepcid) 20 mg in 50 mls @ 200 mls/hr IV NOW ONE Stop: 01/19/20 06:12 Last Infusion: 01/19/20 06:47 Dose: 0 mls/hr Documented by: Admin: 01/19/20 06:19 Dose: 200 mls/hr Documented by: IVETTE Potassium Chloride 40 meq/ (Sodium Chloride) 520 mls @ 130 mls/hr IV NOW ONE Stop: 01/19/20 10:54 Last Infusion: 01/19/20 12:22 Dose: 130 mls/hr Documented by: VIOLA Cosigned by: HCRIS Admin: 01/19/20 07:05 Dose: 130 mls/hr Documented by: EMMANUEL Cosigned by: IVETTE Ketorolac Tromethamine (Toradol) 15 mg IV NOW ONE Stop: 01/19/20 05:56 Last Admin: 01/19/20 06:18 Dose: 15 mg Documented by: IVETTE Methylprednisolone (Solu-Medrol 125 Mg Vial) 125 mg IV NOW ONE Stop: 01/19/20 08:57 Last Admin: 01/19/20 09:07 Dose: 125 mg Documented by: VIOLA Potassium Chloride (Potassium Chloride) 40 meq PO NOW ONE Stop: 01/19/20 06:56 Last Admin: 01/19/20 07:05 Dose: 40 meq Documented by: EMMANUEL Vital Signs Vital signs: Vital Signs - 8 hr 01/19/20 05:56 01/19/20 08:52 01/19/20 10:30 Temperature 98.2 F Pulse Rate 88 73 77 Respiratory Rate 16 21 24 Blood Pressure 149/95 H Blood Pressure [Right Arm] 123/83 145/96 H Pulse Oximetry 96 95 99 01/19/20 11:46 01/19/20 11:49 Temperature Pulse Rate 83 82 Respiratory Rate 13 19 Blood Pressure Blood Pressure [Right Arm] 142/89 H 142/89 H Pulse Oximetry 98 98 MDM - Allergic Reaction <Devang Mccollum DO - Last Filed: 01/20/20 00:29> Lab Data Result diagrams: 01/19/20 06:30 01/19/20 06:30 Labs: Lab Results 01/19/20 01/19/20 01/19/20 Range/Units 06:30 06:30 06:30 WBC 7.7 (4.5-11.0) X10^3/uL RBC 4.22 L (4.5-5.9) X10^6/uL Hgb 15.1 (13.5-17.5) g/dL Hct 43.9 (41-53) % MCV 104.2 H (80-100) fL MCH 35.9 H (26-34) PG MCHC 34.5 (30-36) % RDW 15.6 H (11.6-14.8) % Plt Count 140 L (150-400) X10^3/uL Neut % (Auto) 73.8 (50-75) % Lymph % (Auto) 13.2 L (25-40) % [place] % (Auto) 11.2 (3-14) % Eos % (Auto) 1.4 L (2-4) % Baso % (Auto) 0.4 (0-2) % Neut # (Auto) 5700 (5658-8663) /uL Lymph # (Auto) 1000 L (2228-3561) /uL [place] # (Auto) 900 (0-900) /uL Eos # (Auto) 100 (0-450) /uL Baso # (Auto) 0 (0-100) /uL PT 11.2 (10.1-12.7) SECONDS INR 1.0 (0.9-1.3) Sodium (137-145) mmol/L Potassium (3.4-5.1) mmol/L Chloride (98-107) mmol/L Carbon Dioxide (22-32) mmol/L BUN (9-20) mg/dL Creatinine (0.66-1.25) mg/dL Estimated GFR (>60) mL/min BUN/Creatinine Ratio (6-22) Glucose (80-110) mg/dL Calcium (8.4-10.2) mg/dL Ethyl Alcohol < 10 ( - 10) mg/dL 01/19/20 Range/Units 06:30 WBC (4.5-11.0) X10^3/uL RBC (4.5-5.9) X10^6/uL Hgb (13.5-17.5) g/dL Hct (41-53) % MCV (80-100) fL MCH (26-34) PG MCHC (30-36) % RDW (11.6-14.8) % Plt Count (150-400) X10^3/uL Neut % (Auto) (50-75) % Lymph % (Auto) (25-40) % [place] % (Auto) (3-14) % Eos % (Auto) (2-4) % Baso % (Auto) (0-2) % Neut # (Auto) (2159-8205) /uL Lymph # (Auto) (2945-0942) /uL [place] # (Auto) (0-900) /uL Eos # (Auto) (0-450) /uL Baso # (Auto) (0-100) /uL PT (10.1-12.7) SECONDS INR (0.9-1.3) Sodium 140 (137-145) mmol/L Potassium 3.0 L (3.4-5.1) mmol/L Chloride 108 H (98-107) mmol/L Carbon Dioxide 27 (22-32) mmol/L BUN 16 (9-20) mg/dL Creatinine 1.06 (0.66-1.25) mg/dL Estimated GFR > 60.0 (>60) mL/min BUN/Creatinine Ratio 15.1 (6-22) Glucose 92 (80-110) mg/dL Calcium 8.0 L (8.4-10.2) mg/dL Ethyl Alcohol ( - 10) mg/dL <Poppy David, DO - Last Filed: 01/19/20 12:51> Lab Data Attestation: I reviewed the patient's lab results. Labs: Lab Results 01/19/20 01/19/20 01/19/20 Range/Units 06:30 06:30 06:30 WBC 7.7 (4.5-11.0) X10^3/uL RBC 4.22 L (4.5-5.9) X10^6/uL Hgb 15.1 (13.5-17.5) g/dL Hct 43.9 (41-53) % MCV 104.2 H (80-100) fL MCH 35.9 H (26-34) PG MCHC 34.5 (30-36) % RDW 15.6 H (11.6-14.8) % Plt Count 140 L (150-400) X10^3/uL Neut % (Auto) 73.8 (50-75) % Lymph % (Auto) 13.2 L (25-40) % [place] % (Auto) 11.2 (3-14) % Eos % (Auto) 1.4 L (2-4) % Baso % (Auto) 0.4 (0-2) % Neut # (Auto) 5700 (9283-2622) /uL Lymph # (Auto) 1000 L (2249-8325) /uL [place] # (Auto) 900 (0-900) /uL Eos # (Auto) 100 (0-450) /uL Baso # (Auto) 0 (0-100) /uL PT 11.2 (10.1-12.7) SECONDS INR 1.0 (0.9-1.3) Sodium (137-145) mmol/L Potassium (3.4-5.1) mmol/L Chloride (98-107) mmol/L Carbon Dioxide (22-32) mmol/L BUN (9-20) mg/dL Creatinine (0.66-1.25) mg/dL Estimated GFR (>60) mL/min BUN/Creatinine Ratio (6-22) Glucose (80-110) mg/dL Calcium (8.4-10.2) mg/dL Ethyl Alcohol < 10 ( - 10) mg/dL 01/19/20 Range/Units 06:30 WBC (4.5-11.0) X10^3/uL RBC (4.5-5.9) X10^6/uL Hgb (13.5-17.5) g/dL Hct (41-53) % MCV (80-100) fL MCH (26-34) PG MCHC (30-36) % RDW (11.6-14.8) % Plt Count (150-400) X10^3/uL Neut % (Auto) (50-75) % Lymph % (Auto) (25-40) % [place] % (Auto) (3-14) % Eos % (Auto) (2-4) % Baso % (Auto) (0-2) % Neut # (Auto) (3732-1998) /uL Lymph # (Auto) (3271-6190) /uL [place] # (Auto) (0-900) /uL Eos # (Auto) (0-450) /uL Baso # (Auto) (0-100) /uL PT (10.1-12.7) SECONDS INR (0.9-1.3) Sodium 140 (137-145) mmol/L Potassium 3.0 L (3.4-5.1) mmol/L Chloride 108 H (98-107) mmol/L Carbon Dioxide 27 (22-32) mmol/L BUN 16 (9-20) mg/dL Creatinine 1.06 (0.66-1.25) mg/dL Estimated GFR > 60.0 (>60) mL/min BUN/Creatinine Ratio 15.1 (6-22) Glucose 92 (80-110) mg/dL Calcium 8.0 L (8.4-10.2) mg/dL Ethyl Alcohol ( - 10) mg/dL MDM Narrative Medical decision making narrative: Patient signed out to myself by Dr. Mccollum, states he is not sure physically if he can tell a difference but when he looks with his phone he thinks that maybe it might be slightly worse. Recheck @ 0856, patient not worsening but not improving. Patient K-rider is running. Given dexamethasone in ED but had Solumedrol last time and had improvement. Solumedrol 125mg ordered. Patient is reluctant to be admitted for observation. Recheck @ 1030am, patient has had improvement, no completely resolved. Recheck @ 1155, patient has had improvement, it has not completely resolved but he feels safe to return home and does not wish for observation. K-ridalfonso has completed. Patient has famotidine at home and benadryl. He was given steroid burst/taper for 4 days and then plan to return to normal 10mg dose. Patient given Rx for prednisone. Patient able to ambulate in department with bathroom without issue. Discharge Plan Departure Patient Disposition: Home Clinical Impression: Angioedema Discharge Date/Time: 01/19/20 12:40 Instructions: DI for Angioedema Activity Restrictions/Additional Instructions: Continue your home medications. Increase your prednisone to 50mg tomorrow then decrease by 10mg each day x 4 days, then return to your normal 10mg dose. Prescription included. Take famotidine 20mg twice daily x 7 days. You may continue benadryl 1-2 tablets every 6 hours as needed for symptoms. Return for recurrence, increasing swelling of face, lips, mouth or throat, stridor or high pitched audible wheezing, difficulty swallowing, hives, persistent vomiting or any other new or concerning symptoms. Prescriptions: New prednisone 10 mg tablet See Rx Instructions .ROUTE .COMPLEX Qty: 14 RF: 0 No Action epinephrine [EpiPen] 0.3 mg/0.3 mL auto-injector 0.3 mg IM Q15M PRN (Reason: angioedema) Qty: 2 RF: 0 diphenhydramine HCl [Benadryl] 25 mg capsule 25 mg PO BEDTIME Qty: 60 RF: 0 hydrochlorothiazide 25 mg tablet 25 mg PO QAM RF: 0 famotidine 20 mg Tablet 20 mg PO BID RF: 0 prednisone 20 mg Tablet 40 mg PO DAILY RF: 0 Referrals: Adán Holman [Primary Care Provider] -
[2020-01-19 05:56] VITALS: BP 149/95; PULSE 88; RESP 16; TEMP 36.8; O2SAT 96; BMI 32.8
[2020-01-19] MEDS: EPINEPHrine 1 MG/ML 0.5 MG IM (06:17)
[2020-01-19] MEDS: KETOROLAC 60 MG/2 ML VIAL 15 MG IV (06:18)
[2020-01-19] MEDS: diphenhydrAMINE 50 MG/ML VIAL 25 MG IV (06:18)
[2020-01-19] MEDS: DEXAMETHASONE 10 MG/ML VIAL IV (06:18)
[2020-01-19] MEDS: SODIUM CHLORIDE 0.9% 1,000 ML 1000 ML IV (06:19)
[2020-01-19] MEDS: FAMOTIDINE 20 MG/50 ML PIGGYBACK 200 MG IV (06:19)
[2020-01-19 06:46] LABS: Add Manual Diff / Slide Review NO; Basophils Absolute Auto 0 /uL (0-100); Basophils Percent Auto 0.4 % (0-2); Eosinophils Absolute Auto 100 /uL (0-450); Eosinophils Percent Auto 1.4 % (2-4); Hematocrit 43.9 % (41-53); Hemoglobin 15.1 g/dL (13.5-17.5); Lymphocytes Absolute Auto 1000 /uL (1100-4500); Lymphocytes Percent Auto 13.2 % (25-40); Mean Corpuscular HGB Conc 34.5 % (30-36); Mean Corpuscular Hemoglobin 35.9 PG (26-34); Mean Corpuscular Volume 104.2 fL (80-100); Monocytes Absolute Auto 900 /uL (0-900); Monocytes Percent Auto 11.2 % (3-14); Neutrophils Absolute Auto 5700 /uL (1500-7000); Neutrophils Percent Auto 73.8 % (50-75); Platelet Count 140 X10^3/uL (150-400); Red Blood Cell Count 4.22 X10^6/uL (4.5-5.9); Red Cell Distribution Width 15.6 % (11.6-14.8); White Blood Cell Count 7.7 X10^3/uL (4.5-11.0)
[2020-01-19 06:47] LABS: Prothrombin Time 11.2 SECONDS (10.1-12.7)
[2020-01-19 06:51] LABS: BUN Creatinine Ratio 15.1 (6-22); Blood Urea Nitrogen 16 mg/dL (9-20); Carbon Dioxide 27 mmol/L (22-32); Chloride 108 mmol/L (98-107); Estimated Glomerular Filt Rate > 60.0 mL/min (>60); Ethanol (ETOH) < 10 mg/dL; Glucose 92 mg/dL (80-110); HEMOLYSIS < 15 (0-50); Sodium 140 mmol/L (137-145)
[2020-01-19] MEDS: POTASSIUM CHLORIDE 40 MEQ in SODIUM CHLORIDE 0.9% 500 ML 130 ML IV (07:05)
[2020-01-19] MEDS: POTASSIUM CHLORIDE 20 MEQ/15 ML UDC 40 MEQ PO (07:05)
[2020-01-19 08:52] VITALS: BP 123/83; PULSE 73; RESP 21; O2SAT 95
[2020-01-19] MEDS: methylPREDNISolone 125 MG/2 ML VIAL IV (09:07)
[2020-01-19 10:30] VITALS: BP 145/96; PULSE 77; RESP 24; O2SAT 99
[2020-01-19 11:46] VITALS: BP 142/89; PULSE 83; RESP 13; O2SAT 98
[2020-01-19 11:49] VITALS: BP 142/89; PULSE 82; RESP 19; O2SAT 98
--- NOTE | 2020-01-19 12:24 | PC.NURSE ---
pt tongue swelling has decreased and pt would like to go home.
== END 2020-01-19 12:40 | disposition home or self-care (01) ==
PROVIDERS: Emergency Medicine; Emergency Provider Emergency Medicine; PCP Physician Assistant Medical
DX: T78.3XXA Angioneurotic edema, initial encounter (principal); I10 Essential (primary) hypertension
CPT/HCPCS: 80048; 80320; 85025; 85610; 96361; 96365; 96372; 96375; 99284; J0171; J1100; J1200; J1885; J2930; J3480

== ENCOUNTER 2020-02-26 04:54 | Emergency (ER) | payer MEDICARE, MEDICAID, SELFPAY ==
[2018-08-01 09:00] VITALS: PULSE 43; RESP 16; O2SAT 96
[2020-01-10 21:17] VITALS: BMI 31.2
[2020-02-26 05:02] VITALS: BP 137/108; PULSE 86; RESP 16; TEMP 36.7; O2SAT 97; BMI 31.2
--- NOTE | 2020-02-26 05:17 | ED_ITS ---
HPI - Extremity Injury (Lower) General Chief Complaint: Extremity Injury, Lower Stated Complaint: Left thigh pain Time Seen by Provider: 02/26/20 05:02 Mode of arrival: Ambulatory History of Present Illness HPI Narrative: 60-year-old gentleman with a history of recurrent angioedema, alcohol use disorder, and back pain presents with severe back pain, spider bite, swelling in his left thigh, general malaise mild diarrhea for the last couple of days and concern regarding the amount of pain radiating down his left leg. He states that he did stop drinking in December as part of his angioedema workup but he had a shot of whiskey this morning because it was hurting so bad. He is currently finishing a 2 month course of prednisone related to the angioedema and prescribed by his child care attendant. Three days ago began noticing multiple symptoms. Related Data Home Medications Medication Instructions Recorded Confirmed hydrochlorothiazide 25 mg PO QAM 06/10/19 01/10/20 famotidine 20 mg PO BID 01/10/20 01/10/20 prednisone 40 mg PO DAILY 01/10/20 01/10/20 Previous Rx's Medication Instructions Recorded epinephrine [EpiPen] 0.3 mg IM Q15M PRN #2 each 11/14/19 diphenhydramine HCl [Benadryl] 25 mg PO BEDTIME #60 cap 11/23/19 prednisone See Rx Instructions .ROUTE 01/19/20 .COMPLEX #14 tab oxycodone-acetaminophen [Percocet] 1 tab PO TID PRN #10 tab 02/26/20 valacyclovir 1,000 mg PO Q8H #21 tab 02/26/20 Allergies Allergy/AdvReac Type Severity Reaction Status Date / Time lisinopril Allergy Severe Swelling Verified 01/10/20 11:12 of Lip/Tongue/Throat citalopram [CITALOPRAM] Allergy Unknown SEIZURES Verified 01/10/20 11:12 hydrocodone [HYDROCODONE] AdvReac Mild N/V Verified 01/10/20 11:12 Review of Systems Review of Systems Narrative: Pertinent positive and negative findings as per HPI Remainder of review of systems is otherwise unremarkable for Constitutional: Fevers, chills ENT: No sore throat, neck pain, ear pain CV: Chest pain, palpitations, dyspnea on exertion Respiratory: Cough, wheeze, dyspnea : Dysuria, hematuria, flank pain MS: Muscle weakness, numbness, joint swelling or warmth Neuro: Syncope, dizziness, tingling Psych: Depression, suicidal ideation Endocrine: heat or cold intolerance, very dry skin Heme: Easy bruising or bleeding Allergy: Seasonal rhinorrhea, itchy eyes Patient History Medical History Alcohol dependence (Acute) Chronic thoracic spine pain (Acute) Dyspepsia (Acute) History of rib fracture (Acute) History of stroke (Acute) Hx of angioedema (Acute) Hypertension (Acute) Injury of hip, right (Acute) Intermittent lightheadedness (Acute) Zoster (Acute) Surgical History History of eye surgery (Acute) History of Blanche fundoplication (Acute) History of splenectomy (Acute) Status post cervical spinal fusion (Acute) Family History Father Congestive heart failure Lymph edema Mother Perforated sigmoid colon Brother Stroke Sister Hypertension Social History household members: family and children Smoking Status: Current every day smoker Smoking Status: Current every day smoker alcohol intake frequency: 3 or more drinks per day Alcohol type: hard liquor Substance Use Type: does not use Exam Narrative Exam Narrative: General: Healthy appearing, in mild distress complaining of severe low back and left leg pain. Able to give a complete and coherent history. Well-nourished well-developed HEENT: Moist mucous membranes, normal sclera with reactive pupils, Respiratory: Lungs are clear to auscultation, no wheezing no rales no rhonchi. Full and symmetrical air movement Cardiac: Regular rate and rhythm no murmurs no bruits Abdomen: Soft nontender good bowel tones, no flank pain Skin: Zoster lesions in a left-sided L2 distribution. Small lesions started near the spine next lesion was on the outer hip and yesterday noted a lesion on the inner thigh. All are vesicular lesions on an erythematous base. The initial 1 is already beginning to crust over the lesions on the inner thigh are still in vascicular form. Palmar erythema bilaterally Neurologic: Grossly neurologically intact with no obvious asymmetries or abnormalities Extremities: No trauma, well perfused. Moderate inguinal adenopathy on the left with mild left thigh edema Psych: Cooperative, appropriate insight and affect Initial Vital Signs Initial Vital Signs: Vital Signs Temperature 98.0 F 02/26/20 05:02 Pulse Rate 86 02/26/20 05:02 Respiratory Rate 16 02/26/20 05:02 Blood Pressure 137/108 H 02/26/20 05:02 Pulse Oximetry 97 02/26/20 05:02 Course Orders Ordered: ED Orders 02/26/20 05:35 Complete Blood Count AUTO DIFF Stat Comprehensive Metabolic Panel Stat Discontinued Medications Acyclovir (Zovirax) 800 mg PO NOW ONE Stop: 02/26/20 05:45 Last Admin: 02/26/20 05:52 Dose: 800 mg Documented by: CHANEL Ketorolac Tromethamine (Toradol) 30 mg IV NOW ONE Stop: 02/26/20 05:29 Last Admin: 02/26/20 05:38 Dose: 30 mg Documented by: CHANEL Oxycodone/Acetaminophen (Percocet 5/325) 1 tab PO NOW ONE Stop: 02/26/20 05:29 Last Admin: 02/26/20 05:38 Dose: 1 tab Documented by: CHANEL Valacyclovir HCl (Valtrex) 1,000 mg PO NOW ONE Stop: 02/26/20 05:29 Last Admin: 02/26/20 05:44 Dose: Not Given Documented by: CHANEL Vital Signs Vital signs: Vital Signs - 8 hr 02/26/20 05:02 Temperature 98.0 F Pulse Rate 86 Respiratory Rate 16 Blood Pressure 137/108 H Pulse Oximetry 97 MDM - Extremity Injury (Lower) Medical Records Attestation: I reviewed the patient's medical records. Lab Data Attestation: I reviewed the patient's lab results. Lab results narrative: Improved LFTs suggests that he is being honest about significantly decreasing his alcohol intake over the last 6 weeks Result diagrams: 02/26/20 05:35 02/26/20 05:35 Labs: Lab Results 02/26/20 02/26/20 Range/Units 05:35 05:35 WBC 11.9 H (4.5-11.0) X10^3/uL RBC 5.15 (4.5-5.9) X10^6/uL Hgb 17.7 H (13.5-17.5) g/dL Hct 50.8 (41-53) % MCV 98.7 (80-100) fL MCH 34.4 H (26-34) PG MCHC 34.9 (30-36) % RDW 14.3 (11.6-14.8) % Plt Count 107 L (150-400) X10^3/uL Neut % (Auto) 76.9 H (50-75) % Lymph % (Auto) 14.2 L (25-40) % [place] % (Auto) 7.5 (3-14) % Eos % (Auto) 1.1 L (2-4) % Baso % (Auto) 0.3 (0-2) % Neut # (Auto) 9100 H (0630-7429) /uL Lymph # (Auto) 1700 (3979-2037) /uL [place] # (Auto) 900 (0-900) /uL Eos # (Auto) 100 (0-450) /uL Baso # (Auto) 0 (0-100) /uL Sodium 137 (137-145) mmol/L Potassium 3.4 (3.4-5.1) mmol/L Chloride 105 (98-107) mmol/L Carbon Dioxide 27 (22-32) mmol/L BUN 13 (9-20) mg/dL Creatinine 0.84 (0.66-1.25) mg/dL Estimated GFR > 60.0 (>60) mL/min BUN/Creatinine Ratio 15.5 (6-22) Glucose 84 (80-110) mg/dL Calcium 8.6 (8.4-10.2) mg/dL Total Bilirubin 0.6 (0.2-1.3) mg/dL AST 46 (17-59) IU/L ALT 67 H (<50) IU/L Alkaline Phosphatase 69 (38-126) U/L Total Protein 6.3 (6.3-8.2) g/dL Albumin 3.7 (3.5-5.0) g/dL Globulin 2.6 (1.7-4.1) g/dL Albumin/Globulin Ratio 1.4 (1.0-2.8) MDM Narrative Medical decision making narrative: Patient presents with classic zoster left- sided L2. Explains the back pain as well as the thigh swelling. He is just completing an extended course of prednisone which explains why it has probably become problematic now. Repeated explanations to him that his back pain, the spider bite on his back and the rash on his thigh are all the exact same problem and do cause pain and will respond to acyclovir. States that he did stop drinking in December and had a single shot this morning. Is asking for pain control. Toradol and a single Percocet are given. Because of the diuretic he currently takes for his blood pressure as well as the minor amount of diarrhea he has had over the couple of days he is asking that blood work be checked as he has not been able to get into his primary care physician. Will facilitate this. In terms of discharge pain medication, will give him a very short course of Percocet along with instructions to not mix alcohol and narcotics. Will place him on valacyclovir a 1000 mg 3 times a day for 7 days Discharge Plan Departure Patient Disposition: Home Clinical Impression: Zoster Qualifiers: Herpes zoster complications: without complications Qualified Code(s): B02.9 - Zoster without complications Instructions: DI for Shingles Activity Restrictions/Additional Instructions: Thank you for coming in today You have shingles on the left side in a distribution along the L2 nerve. This explains why your having this significant back pain. The spider bite area on your back that you noticed initially was the 1st part of the shingles breakout. The vesicular type lesion on the inner thigh is related as well. Your having swelling in this left thigh because of swollen lymph nodes as part of this viral infection. All of this will improve. Using Tylenol can help with the aching all over. I am going to give you a prescription of Valacyclovir, and antiviral medication, to take 3 times a day for 7 days. I will also give you a brief course of P ercocet to use for the pain as shingles can be quite uncomfortable. I suspect that the extended course of prednisone that you currently are completing is related to the current outbreak of shingles If the blisters break open, the liquid inside is full of chickenpox vaccine and can be quite contagious. As long as you keep the areas covered and wash her hands when cleaning or touching the area you will be avoiding spreading chickenpox. Once the vesicles have completely crusted over you are not infectious any longer. [facility] [place] for you today Prescriptions: New valacyclovir 1 gram tablet 1,000 mg PO Q8H Qty: 21 RF: 0 oxycodone-acetaminophen [Percocet] 5-325 mg tablet 1 tab PO TID PRN (Reason: pain) Qty: 10 RF: 0 No Action epinephrine [EpiPen] 0.3 mg/0.3 mL auto-injector 0.3 mg IM Q15M PRN (Reason: angioedema) Qty: 2 RF: 0 diphenhydramine HCl [Benadryl] 25 mg capsule 25 mg PO BEDTIME Qty: 60 RF: 0 prednisone 10 mg tablet See Rx Instructions .ROUTE .COMPLEX Qty: 14 RF: 0 hydrochlorothiazide 25 mg tablet 25 mg PO QAM RF: 0 famotidine 20 mg Tablet 20 mg PO BID RF: 0 prednisone 20 mg Tablet 40 mg PO DAILY RF: 0 Referrals: Adán Holman [Primary Care Provider] -
[2020-02-26] MEDS: KETOROLAC 60 MG/2 ML VIAL 30 MG IV (05:38)
[2020-02-26] MEDS: OXYCODONE/ACETAMINOPHEN 5/325 TABLET 1 TAB PO (05:38)
[2020-02-26 05:50] LABS: Add Manual Diff / Slide Review NO; Basophils Absolute Auto 0 /uL (0-100); Basophils Percent Auto 0.3 % (0-2); Eosinophils Absolute Auto 100 /uL (0-450); Eosinophils Percent Auto 1.1 % (2-4); Hematocrit 50.8 % (41-53); Hemoglobin 17.7 g/dL (13.5-17.5); Lymphocytes Absolute Auto 1700 /uL (1100-4500); Lymphocytes Percent Auto 14.2 % (25-40); Mean Corpuscular HGB Conc 34.9 % (30-36); Mean Corpuscular Hemoglobin 34.4 PG (26-34); Mean Corpuscular Volume 98.7 fL (80-100); Monocytes Absolute Auto 900 /uL (0-900); Monocytes Percent Auto 7.5 % (3-14); Neutrophils Absolute Auto 9100 /uL (1500-7000); Neutrophils Percent Auto 76.9 % (50-75); Platelet Count 107 X10^3/uL (150-400); Red Blood Cell Count 5.15 X10^6/uL (4.5-5.9); Red Cell Distribution Width 14.3 % (11.6-14.8); White Blood Cell Count 11.9 X10^3/uL (4.5-11.0)
[2020-02-26] MEDS: ACYCLOVIR 200 MG CAPSULE 800 MG PO (05:52)
[2020-02-26 05:57] LABS: Alanine Aminotransferase 67 IU/L (<50); Albumin 3.7 g/dL (3.5-5.0); Albumin Globulin Ratio 1.4 (1.0-2.8); Alkaline Phosphatase 69 U/L (38-126); Aspartate Aminotransferase 46 IU/L (17-59); BUN Creatinine Ratio 15.5 (6-22); Bilirubin Total 0.6 mg/dL (0.2-1.3); Blood Urea Nitrogen 13 mg/dL (9-20); Calcium 8.6 mg/dL (8.4-10.2); Carbon Dioxide 27 mmol/L (22-32); Chloride 105 mmol/L (98-107); Estimated Glomerular Filt Rate > 60.0 mL/min (>60); Globulin 2.6 g/dL (1.7-4.1); Glucose 84 mg/dL (80-110); HEMOLYSIS 16 (0-50); Potassium 3.4 mmol/L (3.4-5.1); Sodium 137 mmol/L (137-145); Total Protein 6.3 g/dL (6.3-8.2)
[2020-02-26 06:46] VITALS: BP 154/98; PULSE 78; RESP 18; TEMP 36.7; O2SAT 97
== END 2020-02-26 06:55 | disposition home or self-care (01) ==
LOC: ED 06:33
PROVIDERS: Emergency Provider Emergency Medicine; PCP Physician Assistant Medical
DX: B02.9 Zoster without complications (principal); M54.9 Dorsalgia, unspecified; M79.89 Other specified soft tissue disorders
CPT/HCPCS: 36415; 80053; 85025; 96374; 99284; J1885

== ENCOUNTER 2020-03-15 14:41 | Inpatient (IN) | payer MEDICARE, MEDICAID, SELFPAY ==
[2018-08-01 09:00] VITALS: PULSE 43; RESP 16; O2SAT 96
[2020-01-10 21:17] VITALS: BMI 31.2
[2020-03-15] VITALS (11 sets, daily range): BP systolic 130–155; BP diastolic 86–106; PULSE 70–112; RESP 16–20; TEMP 35.9–36.4; O2SAT 93–97; BMI 30.4
--- NOTE | 2020-03-15 15:24 | DI.RAD.S_ITS ---
PROCEDURE: XR CHEST 1V INDICATIONS: chest pain TECHNIQUE: One view of the chest was acquired. COMPARISON: [facility], CR, XR CHEST 1V, 07/30/2018, 5:49. [facility], CR, XR CHEST 1V, 07/31/2018, 7:59. [facility], CR, XR CHEST 1V, 08/01/2018, 5:36. [facility], CR, XR CHEST 1V, 01/10/2020, 12:46. FINDINGS: Surgical changes and devices: There is partial visualization of lower cervical spine fixation hardware. Left upper quadrant clips are faintly seen. Lungs and pleura: An incomplete inspiratory result is noted, causing a crowded appearance to the lung markings. No focal infiltrates are seen. No pneumothorax or significant pleural effusions are seen. Mediastinum: Mediastinal contours appear normal. Heart size is normal. Bones and chest wall: No suspicious bony lesions. Age-appropriate bony degenerative changes are seen. Overlying soft tissues appear unremarkable. IMPRESSION: Unremarkable portable chest for age, with note made of degenerative and postoperative change. Dictated by: Candido Vega M.D. on 03/15/2020 at 15:17 Approved by: Candido Vega M.D. on 03/15/2020 at 15:18
[2020-03-15 15:29] LABS: Add Manual Diff / Slide Review NO; Basophils Absolute Auto 0 /uL (0-100); Basophils Percent Auto 0.3 % (0-2); Eosinophils Absolute Auto 100 /uL (0-450); Eosinophils Percent Auto 0.6 % (2-4); Hematocrit 50.8 % (41-53); Hemoglobin 18.1 g/dL (13.5-17.5); Lymphocytes Absolute Auto 2000 /uL (1100-4500); Lymphocytes Percent Auto 21.1 % (25-40); Mean Corpuscular HGB Conc 35.6 % (30-36); Mean Corpuscular Hemoglobin 34.5 PG (26-34); Mean Corpuscular Volume 96.9 fL (80-100); Monocytes Absolute Auto 900 /uL (0-900); Monocytes Percent Auto 9.4 % (3-14); Neutrophils Absolute Auto 6500 /uL (1500-7000); Neutrophils Percent Auto 68.6 % (50-75); Platelet Count 141 X10^3/uL (150-400); Red Blood Cell Count 5.25 X10^6/uL (4.5-5.9); Red Cell Distribution Width 15.1 % (11.6-14.8); White Blood Cell Count 9.5 X10^3/uL (4.5-11.0)
[2020-03-15 15:35] LABS: Prothrombin Time 10.9 SECONDS (10.1-12.7)
[2020-03-15 15:38] LABS: PTT Partial Thromboplastin Tim 31 SECONDS (26.4-36.2)
[2020-03-15 15:40] LABS: Alanine Aminotransferase 64 IU/L (<50); Albumin Globulin Ratio 1.3 (1.0-2.8); Alkaline Phosphatase 90 U/L (38-126); Aspartate Aminotransferase 80 IU/L (17-59); BUN Creatinine Ratio 17.3 (6-22); Bilirubin Total 0.8 mg/dL (0.2-1.3); Blood Urea Nitrogen 14 mg/dL (9-20); Calcium 8.5 mg/dL (8.4-10.2); Carbon Dioxide 24 mmol/L (22-32); Chloride 101 mmol/L (98-107); Creatine Kinase 48 U/L (55-170); Estimated Glomerular Filt Rate > 60.0 mL/min (>60); Glucose 96 mg/dL (80-110); HEMOLYSIS 16 (0-50); Lipase 136 U/L (23-300); Potassium 3.4 mmol/L (3.4-5.1); Sodium 137 mmol/L (137-145)
[2020-03-15 15:51] LABS: Troponin I 0.081 ng/mL (0.01-0.034)
--- NOTE | 2020-03-15 15:53 | ED_ITS ---
HPI - Dizziness General Chief Complaint: Dizziness Stated Complaint: weakness/dizzy x 4days Time Seen by Provider: 03/15/20 15:51 Source: EMS Mode of arrival: EMS Limitations: no limitations History of Present Illness HPI Narrative: 60-year-old male smoker with extensive alcohol history and frequent visits for idiopathic angioedema presents with a chief complaint of 4 days of dizziness and lightheadedness with a right-sided headache. He has recently been seen for shingles of his left leg and states that with his increasing pain he has started drinking again, is much as 1/5 of hard liquor per day. He denies any nausea, vomiting or diarrhea. He denies hematemesis or dark and tarry stools. He denies chest pain or shortness of breath. He states that his fatigue and lightheadedness seemed to be worse with any exertion. MD complaint: dizziness and lightheadedness Onset (ago): day(s) Timing: gradual onset Description: lightheadedness History of similar episodes: No History of trauma: No Severity: moderate Relieving factors: rest Exacerbating factors: position Associated symptoms: denies other symptoms Related Data Home Medications Medication Instructions Recorded Confirmed hydrochlorothiazide 25 mg PO QAM 06/10/19 01/10/20 famotidine 20 mg PO BID 01/10/20 01/10/20 prednisone 40 mg PO DAILY 01/10/20 01/10/20 Previous Rx's Medication Instructions Recorded epinephrine [EpiPen] 0.3 mg IM Q15M PRN #2 each 11/14/19 diphenhydramine HCl [Benadryl] 25 mg PO BEDTIME #60 cap 11/23/19 prednisone See Rx Instructions .ROUTE 01/19/20 .COMPLEX #14 tab oxycodone-acetaminophen [Percocet] 1 tab PO TID PRN #10 tab 02/26/20 valacyclovir 1,000 mg PO Q8H #21 tab 02/26/20 Allergies Allergy/AdvReac Type Severity Reaction Status Date / Time lisinopril Allergy Severe Swelling Verified 03/15/20 14:51 of Lip/Tongue/Throat citalopram [CITALOPRAM] Allergy Unknown SEIZURES Verified 03/15/20 14:51 hydrocodone [HYDROCODONE] AdvReac Mild N/V Verified 03/15/20 14:51 Review of Systems Constitutional Constitutional: Denies chills, Denies fatigue, Denies fever(s), Denies frequent falls, Reports headache(s), Denies lethargy and Denies weakness Eyes Eyes: Denies change in vision, Denies eye discharge, Denies irritation and Denie s loss of vision ENT Ears, Nose, Mouth, and Throat: Denies change in voice, Denies dizziness, Reports headache(s), Denies neck pain, Denies sore throat and Denies throat swelling Cardiovascular Cardiovascular: Denies irregular heart rhythm, Reports lightheadedness, Denies p alpitations, Reports dyspnea, Denies dyspnea on exertion and Denies orthopnea Respiratory Respiratory: Denies cough, Reports dyspnea, Denies dyspnea on exertion and Denies wheezing Gastrointestinal Gastrointestinal: Denies abdominal pain, Denies change in bowel habits, Denies diarrhea, Denies nausea and Denies vomiting Genitourinary Genitourinary: Denies hematuria, Denies flank pain, Denies urinary incontinence and Denies urinary urgency Musculoskeletal Musculoskeletal: Denies back pain, Denies muscle weakness, Denies neck pain, D enies numbness and Denies tingling Integumentary/Breasts Skin/Breast: Denies pruritus, Denies erythema, Denies rash and Denies wounds Neurologic Neurologic: Denies behavioral changes, Denies confusion, Denies dizziness, Denies frequent falls, Reports headache(s), Denies loss of vision, Denies numbness, Denies tingling and Denies weakness Psychiatric Psychiatric: Denies anxiety, Denies behavioral changes, Denies confusion, Denies depression, Denies homicidal ideation and Denies suicidal ideation Endocrine Endocrine: Denies fatigue, Denies flushing and Denies palpitations Hematologic/Lymphatic Hematologic/Lymphatic: Denies easy bruising Allergic/Immunologic Allergic/Immunologic: Denies urticaria, Denies throat swelling and Denies wheezing Patient History Medical History Alcohol dependence (Acute) Chronic thoracic spine pain (Acute) Dyspepsia (Acute) History of rib fracture (Acute) History of stroke (Acute) Hx of angioedema (Acute) Hypertension (Acute) Injury of hip, right (Acute) Intermittent lightheadedness (Acute) Zoster (Acute) Surgical History History of eye surgery (Acute) History of Blanche fundoplication (Acute) History of splenectomy (Acute) Status post cervical spinal fusion (Acute) Family History Father Congestive heart failure Lymph edema Mother Perforated sigmoid colon Brother Stroke Sister Hypertension Social History household members: family and children Smoking Status: Current every day smoker Smoking Status: Current every day smoker tobacco type: cigarettes alcohol intake frequency: 3 or more drinks per day Alcohol type: hard liquor Substance Use Type: does not use Exam Narrative Exam Narrative: GENERAL: [60] year old patient appears stated age. Well- nourished, well-developed patient, in mild distress. Agitated, anxious, mild resting tremor HEAD: Atraumatic. Normocephalic. EYES: Pupils equal round and reactive. Extraocular motions intact. No scleral icterus. No injection or drainage. ENT: Dry mucous membranes Nose without bleeding, purulent drainage. Throat without erythema, tonsillar hypertrophy or exudate. Airway patent. NECK: Trachea midline. Non tender CARDIOVASCULAR: Mild tachycardia, regular rhythm without murmurs, gallops, or rubs. RESPIRATORY: Clear to auscultation. Breath sounds equal bilaterally. No wheezes, rales, or rhonchi. GASTROINTESTINAL: Abdomen soft, non-tender, nondistended. EXTREMITIES: No edema or joint tenderness. BACK: Nontender without deformity or crepitance. No flank tenderness. NEURO: AOx3. SKIN: No rash or erythema of visible areas Initial Vital Signs Initial Vital Signs: Vital Signs Temperature 96.6 F L 03/15/20 14:43 Pulse Rate 112 H 03/15/20 14:43 Respiratory Rate 16 03/15/20 14:43 Blood Pressure 149/92 H 03/15/20 14:43 Pulse Oximetry 95 03/15/20 14:43 Course Orders Ordered: ED Orders 03/15/20 15:05 Complete Blood Count AUTO DIFF Stat Comprehensive Metabolic Panel Stat D Dimer Stat Ethanol (ETOH) Stat Lipase Stat NT-proBNP (BNP-Adult 18+) Stat Partial Thromboplastin Time Stat Prothrombin Time INR Stat Troponin & CK Cardiac Panel Stat 03/15/20 15:24 XR chest 1V Stat 03/15/20 16:00 Urine Microscopic Stat 03/15/20 16:58 CT head/brain wo con Stat EKG-12 Lead Stat 03/15/20 18:00 Troponin I Stat Discontinued Medications Sodium Chloride (Normal Saline 0.9%) 1,000 mls @ 1,000 mls/hr IV BOLUS ONE Stop: 03/15/20 17:57 Last Infusion: 03/15/20 18:21 Dose: 0 mls/hr Documented by: Admin: 03/15/20 17:03 Dose: 1,000 mls/hr Documented by: HAYLEYSENSchuyler Sodium Chloride (Normal Saline 0.9%) 1,000 mls @ 1,000 mls/hr IV BOLUS ONE Stop: 03/15/20 19:52 Last Admin: 03/15/20 18:57 Dose: Not Given Documented by: HAYLEYSENSchuyler Sodium Chloride (Normal Saline 0.9%) 1,000 mls @ 1,000 mls/hr IV BOLUS ONE Stop: 03/15/20 19:54 Last Admin: 03/15/20 19:01 Dose: 1,000 mls/hr Documented by: MONA Lorazepam (Ativan) 0.5 mg IV NOW ONE Stop: 03/15/20 18:56 Last Admin: 03/15/20 19:01 Dose: 0.5 mg Documented by: MONA Phenobarbital (Phenobarbital) 260 mg IV NOW ONE Stop: 03/15/20 19:33 Last Admin: 03/15/20 19:52 Dose: 260 mg Documented by: EMMANUEL Phenobarbital (Phenobarbital) 65 mg IV NOW ONE Stop: 03/15/20 19:46 Last Admin: 03/15/20 19:51 Dose: Not Given Documented by: EMMANUEL Thiamine HCl (Vitamin B-1) 100 mg IV NOW ONE Stop: 03/15/20 19:55 Reevaluation(s) Reevaluation #1: patient feeling better, less agitation, less dizziness, less agitation and anxiety after ativan. Phenobarb ordered. Call to Cardio to discuss trop. Consultations Consultation #1: discussion with Dr. Hardy ([facility]) who gives strong recommendation to admit to pursue provocative testing given with stress and echo given abnormal (albeit indeterminate) troponin hospitalist happy to accept Vital Signs Vital signs: Vital Signs - 8 hr 03/15/20 14:43 03/15/20 15:25 03/15/20 15:30 Temperature 96.6 F L Pulse Rate 112 H 104 H 105 H Respiratory Rate 16 16 19 Blood Pressure 149/92 H Blood Pressure [Right Arm] 143/95 H 149/91 H Pulse Oximetry 95 93 95 03/15/20 16:00 03/15/20 16:30 03/15/20 17:00 Temperature Pulse Rate 100 H 90 102 H Respiratory Rate 18 18 Blood Pressure Blood Pressure [Right Arm] 130/86 149/90 H 151/105 H Pulse Oximetry 95 97 03/15/20 17:30 03/15/20 18:30 03/15/20 19:03 Temperature Pulse Rate 98 H 99 H 98 H Respiratory Rate 18 20 18 Blood Pressure Blood Pressure [Right Arm] 155/99 H 142/96 H 142/96 H Pulse Oximetry 96 95 94 MDM - Dizziness Lab Data Result diagrams: 03/15/20 15:05 03/15/20 15:05 Labs: Lab Results 03/15/20 03/15/20 03/15/20 Range/Units 15:05 15:05 15:05 WBC 9.5 (4.5-11.0) X10^3/uL RBC 5.25 (4.5-5.9) X10^6/uL Hgb 18.1 H (13.5-17.5) g/dL Hct 50.8 (41-53) % MCV 96.9 (80-100) fL MCH 34.5 H (26-34) PG MCHC 35.6 (30-36) % RDW 15.1 H (11.6-14.8) % Plt Count 141 L (150-400) X10^3/uL Neut % (Auto) 68.6 (50-75) % Lymph % (Auto) 21.1 L (25-40) % [place] % (Auto) 9.4 (3-14) % Eos % (Auto) 0.6 L (2-4) % Baso % (Auto) 0.3 (0-2) % Neut # (Auto) 6500 (9184-3264) /uL Lymph # (Auto) 2000 (5459-6796) /uL [place] # (Auto) 900 (0-900) /uL Eos # (Auto) 100 (0-450) /uL Baso # (Auto) 0 (0-100) /uL PT 10.9 (10.1-12.7) SECONDS INR 1.0 (0.9-1.3) APTT 31 (26.4-36.2) SECONDS D-Dimer (<230) ng/mL Sodium 137 (137-145) mmol/L Potassium 3.4 (3.4-5.1) mmol/L Chloride 101 (98-107) mmol/L Carbon Dioxide 24 (22-32) mmol/L BUN 14 (9-20) mg/dL Creatinine 0.81 (0.66-1.25) mg/dL Estimated GFR > 60.0 (>60) mL/min BUN/Creatinine Ratio 17.3 (6-22) Glucose 96 (80-110) mg/dL Calcium 8.5 (8.4-10.2) mg/dL Total Bilirubin 0.8 (0.2-1.3) mg/dL AST 80 H (17-59) IU/L ALT 64 H (<50) IU/L Alkaline Phosphatase 90 (38-126) U/L Total Creatine Kinase 48 L (55-170) U/L CK-MB (CK-2) TNP CK-MB (CK-2) Rel Index TNP Troponin I 0.081 H (0.01-0.034) ng/mL NT-Pro-B Natriuret Pep (<125) pg/mL Total Protein 7.0 (6.3-8.2) g/dL Albumin 4.0 (3.5-5.0) g/dL Globulin 3.0 (1.7-4.1) g/dL Albumin/Globulin Ratio 1.3 (1.0-2.8) Lipase 136 (23-300) U/L Urine RBC (0-5/HPF) Urine WBC (0-5/HPF) Ur Squamous Epith Cells (0-5/HPF) Urine Bacteria (None) Ur Culture Indicated? Ethyl Alcohol ( - 10) mg/dL 03/15/20 03/15/20 03/15/20 Range/Units 15:05 15:05 16:00 WBC (4.5-11.0) X10^3/uL RBC (4.5-5.9) X10^6/uL Hgb (13.5-17.5) g/dL Hct (41-53) % MCV (80-100) fL MCH (26-34) PG MCHC (30-36) % RDW (11.6-14.8) % Plt Count (150-400) X10^3/uL Neut % (Auto) (50-75) % Lymph % (Auto) (25-40) % [place] % (Auto) (3-14) % Eos % (Auto) (2-4) % Baso % (Auto) (0-2) % Neut # (Auto) (3082-7325) /uL Lymph # (Auto) (0627-4417) /uL [place] # (Auto) (0-900) /uL Eos # (Auto) (0-450) /uL Baso # (Auto) (0-100) /uL PT (10.1-12.7) SECONDS INR (0.9-1.3) APTT (26.4-36.2) SECONDS D-Dimer < 200 (<230) ng/mL Sodium (137-145) mmol/L Potassium (3.4-5.1) mmol/L Chloride (98-107) mmol/L Carbon Dioxide (22-32) mmol/L BUN (9-20) mg/dL Creatinine (0.66-1.25) mg/dL Estimated GFR (>60) mL/min BUN/Creatinine Ratio (6-22) Glucose (80-110) mg/dL Calcium (8.4-10.2) mg/dL Total Bilirubin (0.2-1.3) mg/dL AST (17-59) IU/L ALT (<50) IU/L Alkaline Phosphatase (38-126) U/L Total Creatine Kinase (55-170) U/L CK-MB (CK-2) CK-MB (CK-2) Rel Index Troponin I (0.01-0.034) ng/mL NT-Pro-B Natriuret Pep 23 (<125) pg/mL Total Protein (6.3-8.2) g/dL Albumin (3.5-5.0) g/dL Globulin (1.7-4.1) g/dL Albumin/Globulin Ratio (1.0-2.8) Lipase (23-300) U/L Urine RBC 0-1/hpf (0-5/HPF) Urine WBC 0-1/hpf (0-5/HPF) Ur Squamous Epith Cells 0-1 /hpf (0-5/HPF) Urine Bacteria None seen (None) Ur Culture Indicated? Cult not indicated Ethyl Alcohol 160 H ( - 10) mg/dL 03/15/20 Range/Units 18:00 WBC (4.5-11.0) X10^3/uL RBC (4.5-5.9) X10^6/uL Hgb (13.5-17.5) g/dL Hct (41-53) % MCV (80-100) fL MCH (26-34) PG MCHC (30-36) % RDW (11.6-14.8) % Plt Count (150-400) X10^3/uL Neut % (Auto) (50-75) % Lymph % (Auto) (25-40) % [place] % (Auto) (3-14) % Eos % (Auto) (2-4) % Baso % (Auto) (0-2) % Neut # (Auto) (4475-1898) /uL Lymph # (Auto) (8050-8946) /uL [place] # (Auto) (0-900) /uL Eos # (Auto) (0-450) /uL Baso # (Auto) (0-100) /uL PT (10.1-12.7) SECONDS INR (0.9-1.3) APTT (26.4-36.2) SECONDS D-Dimer (<230) ng/mL Sodium (137-145) mmol/L Potassium (3.4-5.1) mmol/L Chloride (98-107) mmol/L Carbon Dioxide (22-32) mmol/L BUN (9-20) mg/dL Creatinine (0.66-1.25) mg/dL Estimated GFR (>60) mL/min BUN/Creatinine Ratio (6-22) Glucose (80-110) mg/dL Calcium (8.4-10.2) mg/dL Total Bilirubin (0.2-1.3) mg/dL AST (17-59) IU/L ALT (<50) IU/L Alkaline Phosphatase (38-126) U/L Total Creatine Kinase (55-170) U/L CK-MB (CK-2) CK-MB (CK-2) Rel Index Troponin I 0.080 H (0.01-0.034) ng/mL NT-Pro-B Natriuret Pep (<125) pg/mL Total Protein (6.3-8.2) g/dL Albumin (3.5-5.0) g/dL Globulin (1.7-4.1) g/dL Albumin/Globulin Ratio (1.0-2.8) Lipase (23-300) U/L Urine RBC (0-5/HPF) Urine WBC (0-5/HPF) Ur Squamous Epith Cells (0-5/HPF) Urine Bacteria (None) Ur Culture Indicated? Ethyl Alcohol ( - 10) mg/dL Urine Dip Bedside Urine Glucose Negative Bedside Urine Bilirubin - Negative Bedside Urine Ketone + 15 Urine Specific [place] 1.015 Bedside Urine Occult Blood +/- Bedside Urine pH 6.0 Bedside Urine Protein - Negative Bedside Urine Urobilinogen - Negative Bedside Urine Nitrite - Negative Bedside Urine Leukocytes - Negative Esterase Imaging Data CT scan - head: Radiologist's Impression: Chart Viewer Diagnostics DATE TYPE STATUS AUTHOR Hx 03/15/20 16:58 Candido Vega 03/15/20 15:24 [place] p[place] 01/11/20 12:38 [place]ido 01/10/20 20:00 01/10/20 12:24 Bhavik Huntley 08/07/19 22:47 Evelyn Kennedy 08/07/19 22:47 Evelyn Kennedy 06/10/19 12:19 Anna Herzog 04/21/19 22:56 01/15/19 00:00 Evelyn Kennedy 08/01/18 06:00 Dileep Weaver 07/31/18 00:00 Aidan Mccann 07/30/18 07:49 07/30/18 06:30 Aidan Mccann 04/10/18 00:00 Emmanuel Bautista Michael R 60, M0 1960 [facility], Main ED R11 193.04cm 113.398kg BMI: 30.4kg/m? Dizziness Search Chart No Data to Display Swelling of Lip/Tongue/Throat SEIZURES N/V ONSET Today 16:30 Elroy Larkin [address] [address] [address] Scan Report Signed Patient: Elroy Larkin RMR#: [id number] : 1960Acct:[id number] Age/Sex: 60 / MDate of Service: 03/15/20 Loc: ED Accession Number: [id number] Procedure: CT head/brain wo con Ordering Provider: Devang Mccollum D.O. PROCEDURE: CT HEAD/BRAIN WO CON INDICATIONS: Headache, dizzy, chronic alcohol TECHNIQUE: Noncontrast 4.5 mm thick angled axial sections acquired from the foramen magnum to the vertex, with coronal and sagittal reformats. For radiation dose reduction, the following was used: automated exposure control, adjustment of mA and/or kV according to patient size. COMPARISON: [facility], CT, HEAD WITHOUT CONTRAST, 03/02/2017, 20:42. [facility], CT, HEAD AND NECK ANGIO, 03/12/2017, 17:24. [facility], CT, CT HEAD/BRAIN WO CON, 08/07/2019, 22:52. FINDINGS: Image quality: Excellent. CSF spaces: Basal cisterns are patent. No extra-axial fluid collections. The ventricles are symmetric in size and shape. Brain: No intracranial bleeds or masses. There is cerebral volume loss for age, with resultant ventricular and sulcal prominence. There are periventricular and deep white matter chronic small vessel ischemic changes. There is intracranial internal carotid artery atherosclerosis. Skull and face: Calvarium and visualized facial bones appear intact, without suspicious lesions. Sinuses: Visualized sinuses and mastoids are clear. IMPRESSION: Normal hea cystd CT for age. Dictated by: Candido Vega M.D. on 03/15/2020 at 16:17 Approved by: Candido Vega M.D. on 03/15/2020 at 16:19 ECG Data Attestation: I personally reviewed and interpreted this ECG as follows: Prior ECG tracings: available for review Interpretation: EKG is normal sinus rhythm rate [ 108] and free of any signs of ischemia or ectopy. No ST segmental elevation or depression. No T wave inversions Discharge Plan Departure Patient Disposition: Admitted As Inpatient Clinical Impression: Alcohol withdrawal, Elevated troponin
[2020-03-15 16:08] LABS: Bacteria Urine None Seen
[2020-03-15 16:22] LABS: Culture Indicated Urine Cult Not Indicated; RBC Urine 0-1/HPF (0-5/HPF); Squamous Epithelial Cell Urine 0-1 /HPF (0-5/HPF); WBC Urine 0-1/HPF (0-5/HPF)
--- NOTE | 2020-03-15 16:58 | DI.CT.S_ITS ---
PROCEDURE: CT HEAD/BRAIN WO CON INDICATIONS: Headache, dizzy, chronic alcohol TECHNIQUE: Noncontrast 4.5 mm thick angled axial sections acquired from the foramen magnum to the vertex, with coronal and sagittal reformats. For radiation dose reduction, the following was used: automated exposure control, adjustment of mA and/or kV according to patient size. COMPARISON: [facility], CT, HEAD WITHOUT CONTRAST, 03/02/2017, 20:42. [facility], CT, HEAD AND NECK ANGIO, 03/12/2017, 17:24. [facility], CT, CT HEAD/BRAIN WO CON, 08/07/2019, 22:52. FINDINGS: Image quality: Excellent. CSF spaces: Basal cisterns are patent. No extra-axial fluid collections. The ventricles are symmetric in size and shape. Brain: No intracranial bleeds or masses. There is cerebral volume loss for age, with resultant ventricular and sulcal prominence. There are periventricular and deep white matter chronic small vessel ischemic changes. There is intracranial internal carotid artery atherosclerosis. Skull and face: Calvarium and visualized facial bones appear intact, without suspicious lesions. Sinuses: Visualized sinuses and mastoids are clear. IMPRESSION: Normal hea cystd CT for age. Dictated by: Candido Vega M.D. on 03/15/2020 at 16:17 Approved by: Candido Vega M.D. on 03/15/2020 at 16:19
[2020-03-15] MEDS: SODIUM CHLORIDE 0.9% 1,000 ML 1000 ML IV ×2 (17:03→19:01)
[2020-03-15] MEDS: ASPIRIN 81 MG CHEW TAB 324 MG (17:12)
[2020-03-15 17:18] LABS: D Dimer < 200 ng/mL (<230)
[2020-03-15 17:20] LABS: Ethanol (ETOH) 160 mg/dL
[2020-03-15 17:29] LABS: NT-proBNP (BNP-Adult 18+) 23 pg/mL (<125)
[2020-03-15] MEDS: LORazepam 2 MG/ML INJ 0.5 MG IV (19:01)
[2020-03-15] MEDS: PHENobarbital 65 MG/ML VIAL 260 MG IV (19:52)
[2020-03-15] MEDS: THIAMINE 200 MG/2 ML VIAL 100 MG IV (20:07)
--- NOTE | 2020-03-15 20:54 | DI.ECHO.S_ITS ---
[place] +---------+ Hospital +---------+ : : [address] : : : : [id number] : : : : Phone: [phone] Echocardiogram Report + + :Name: MARINE VILLAGOMEZ Study Date: 03/16/2020 Height: 76 in : :[facility] Weight: 250 lb : : Gender: Male BSA: 2.4 m2 : :: 1960 Age: 60 yrs BP: 155/106 mmHg: :Reason For Study: Ischemia : :Ordering Physician: Henry : :Hospitalist Performed By: Angelic Chatterjee : :Referring: Arnold ANN E : + + Interpretation Summary Left ventricular size is at the upper limits of normal. The ejection fraction is estimated to be 50-55%. Mild hypokinesis of apical 1/2 of anterior wall and septum. No valvular abnormallity. The ascending aorta is mildly enlarged. Procedure: A two-dimensional transthoracic echocardiogram with color flow and Doppler was performed. The study quality was technically adequate. The heart rate ranged between 85-90 bpm during the study. Left Ventricle: There is normal left ventricular wall thickness. Left ventricular size is at the upper limits of normal. The ejection fraction is estimated to be 50-55%. Left ventricular global longitudinal strain average is -14.0%. There is apical anterior wall mild hypokinesis. There is apical septal wall mild hypokinesis. There are no other obvious focal wall motion abnormalities. Diastolic function could not be accurately assessed due to unobtainable data. Right Ventricle: The right ventricle is normal in size and function. Atria: Both atria are normal in size. There is no Doppler evidence for an interatrial shunt. Mitral Valve: The mitral valve is normal in structure and function. There is trace mitral regurgitation. Aortic Valve: The aortic valve is trileaflet. The aortic valve opens well. There is no aortic valve stenosis. No aortic regurgitation is present. Tricuspid Valve: The tricuspid valve is normal in structure and function. There is trace tricuspid regurgitation. Pulmonic Valve: The pulmonic valve is not well seen, but is grossly normal. There is no pulmonic valvular regurgitation. Great Vessels: The aortic root is borderline dilated. The ascending aorta is mildly enlarged. The inferior vena cava was not visualized. Pericardium/ Pleura There is no pericardial effusion. There is no pleural effusion. MMode/2D Measurements & Calculations LVIDd: 5.8 cm LVOT diam: 2.4 cm LVIDs: 4.4 cm Ao root diam: 3.9 cm FS: 23.4 % asc Aorta Diam: 3.5 cm EPSS: 1.4 cm Ao Arch Diam (Prox Trans): 3.1 cm IVSd: 0.74 cm LVPWd: 0.83 cm LV yeung. diameter/BSA (cm/m^2): 2.4 LV sys. diameter/BSA (cm/m^2): 1.8 LA A2 area: 22.9 cm2 RA long axis: 4.6 cm LA A4 area: 15.7 cm2 RA area: 14.4 cm2 LA length (vol): 4.7 cm RA vol: 38.2 ml LA vol: 64.6 ml RA : 15.7 ml/m2 LA vol index: 26.5 ml/m2 RVD1 (basal): 3.2 cm TAPSE: 2.1 cm Doppler Measurements & Calculations Ao V2 max: 113.5 cm/sec LVOT Max Baljeet: 86.4 cm/sec Ao V2 mean: 85.2 cm/sec LV V1 max P.0 mmHg Ao max P.1 mmHg LV V1 VTI: 17.9 cm Ao mean P.1 mmHg GUNNER(I,D): 3.8 cm2 Ao V2 VTI: 20.9 cm GUNNER(V,D): 3.4 cm2 sev ratio: 0.85 GUNNER indexed to BSA (cm^2/m^2): 1.6 MV E max baljeet: 46.2 cm/sec PA V2 max: 92.7 cm/sec Lat Peak E' Baljeet: 6.7 cm/sec PA V2 mean: 59.6 cm/sec E/E' lat: 6.9 PA mean P.7 mmHg MV P1/2t: 26.9 msec MV A dur: 0.13 sec MV P1/2t max baljeet: 47.1 cm/sec MVA(P1/2t): 8.2 cm2 SV(LVOT): 80.3 ml Electronically signed by: Daniel De Santiago on Reading Physician:03/16/2020 12:59 PM
--- NOTE | 2020-03-15 21:00 | PM.HP.1 ---
History of Present Illness History of Present Illness Date Patient Seen: 03/15/20 Time Patient Seen: 21:00 Date of Onset of Symptoms: 03/12/20 Chief complaint: weakness/dizzy x 4days Narrative: This is a 60-year-old male with a history of severe recurrent angioedema, currently completing the last week of his prednisone taper at 2.5 mg a day, along with ongoing b.i.d. famotidine and daily Singulair, who now presents with 4 days of fatigue, dizziness, lightheadedness and agitation. Five days ago he had decided to stop drinking so much whiskey so began cutting back from his 1/5 of a day habit at around the same time of the onset of these symptoms. His alcohol level is 0.16. His troponin level is elevated at 0.08. This was discussed with Cardiology by the emergency department physician with recommendation to proceed with stress test, echocardiogram, serial troponins and overnight telemetry observation. Unfortunately he declines the recommended treadmill due to chronic back pain and declines a chemical stress test due to fears about chemicals. His AST naomi from 46 on 02/25 to 80 and his ALT is stable at 64 compared to 67 on 02/25. He has had no chest pain but has had some chest palpitations. His head CT was negative. He received IV phenobarbital 260 mg along with thiamine in the emergency department. His last drink was 2 shots of whiskey at 1:00 p.m. today. He has a history of hypertension but no history of diabetes, hyperlipidemia or family history of coronary artery disease (although his father had CHF). The chest x-ray is normal with just some crowded lung markings and the EKG is personally reviewed revealing sinus tachycardia without any abnormal ST or T-wave changes. Patient History Medical History Alcohol dependence (Acute) Chronic thoracic spine pain (Acute) Dyspepsia (Acute) History of rib fracture (Acute) History of stroke (Acute) Hx of angioedema (Acute) Hypertension (Acute) Injury of hip, right (Acute) Intermittent lightheadedness (Acute) Zoster (Acute) Surgical History History of eye surgery (Acute) History of Blanche fundoplication (Acute) History of splenectomy (Acute) Status post cervical spinal fusion (Acute) Family & Social History Family History Father Congestive heart failure Lymph edema Mother Perforated sigmoid colon Brother Stroke Sister Hypertension Social History: household members family,children Safety & Behavioral: Feels Safe in Current Yes Environment Been Physically Hurt or No Threatened By a Person Tobacco & Substance use: Tobacco type cigarettes Smoking Status Current every day smoker alcohol intake frequency 3 or more drinks per day Substance Use Type does not use Comment: His backup decision maker is his daughter Kathy Wall. His fiancee is Brisa. He lives in a house in [place] with his fiancee Brisa who is a nurse. 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 His primary care is Dr. Goodson in [place]. His roll skinner is Dr. Garcia in [place]. Meds Home Medications and Allergies Home Medications Medication Instructions Recorded Confirmed Type hydrochlorothiazide 25 mg PO QAM 06/10/19 01/10/20 History epinephrine [EpiPen] 0.3 mg IM Q15M PRN #2 each 11/14/19 01/10/20 Rx diphenhydramine HCl [Benadryl] 25 mg PO BEDTIME #60 cap 11/23/19 01/10/20 Rx famotidine 20 mg PO BID 01/10/20 01/10/20 History prednisone 40 mg PO DAILY 01/10/20 01/10/20 History prednisone See Rx Instructions .ROUTE 01/19/20 Rx .COMPLEX #14 tab oxycodone-acetaminophen [Percocet] 1 tab PO TID PRN #10 tab 02/26/20 Rx valacyclovir 1,000 mg PO Q8H #21 tab 02/26/20 Rx Allergies Allergy/AdvReac Type Severity Reaction Status Date / Time lisinopril Allergy Severe Swelling Verified 03/15/20 14:51 of Lip/Tongue/Throat citalopram [CITALOPRAM] Allergy Unknown SEIZURES Verified 03/15/20 14:51 hydrocodone [HYDROCODONE] AdvReac Mild N/V Verified 03/15/20 14:51 Review of Systems Review of Systems Narrative: Positive for dizziness, lightheadedness, agitation, dehydration, palpitation, fatigue, Eye weakness. Negative for chest pain, shortness of breath, abdominal pain, nausea, vomiting, diarrhea, bleeding, rash, seizures, sore throat, headaches, difficulty walking. ROS: Yes All systems reviewed with the patient and are negative except as otherwise documented Exam Vital Signs (past 8 hours): - 03/15/20 14:43 03/15/20 15:25 03/15/20 15:30 Temperature 96.6 F L Pulse Rate 112 H 104 H 105 H Respiratory Rate 16 16 19 Blood Pressure 149/92 H Blood Pressure [Right Arm] 143/95 H 149/91 H Pulse Oximetry 95 93 95 03/15/20 16:00 03/15/20 16:30 03/15/20 17:00 Temperature Pulse Rate 100 H 90 102 H Respiratory Rate 18 18 Blood Pressure Blood Pressure [Right Arm] 130/86 149/90 H 151/105 H Pulse Oximetry 95 97 03/15/20 17:30 03/15/20 18:30 03/15/20 19:03 Temperature Pulse Rate 98 H 99 H 98 H Respiratory Rate 18 20 18 Blood Pressure Blood Pressure [Right Arm] 155/99 H 142/96 H 142/96 H Pulse Oximetry 96 95 94 03/15/20 20:00 Temperature Pulse Rate 107 H Respiratory Rate 19 Blood Pressure Blood Pressure [Right Arm] 147/99 H Pulse Oximetry 95 Oxygen Delivery Method Room Air Narrative Exam Narrative: He is alert and oriented x3. He is in no apparent distress. There is no encephalopathic, delirium or agitation evident by the time I see him, after he has received some phenobarbital in the emergency department. Pupils are equally round and reactive to light and accommodation. Extraocular muscles are intact. The right upper eyelid is weak, drooping. Sclerae are pink and nonicteric. No lymph nodes are felt head, neck, supraclavicular area. There is no thyromegaly. JVD is less than 6 cm. No carotid bruits are heard. Heart is regular rate and rhythm without murmur. Lungs are clear to auscultation bilaterally. Abdomen is soft, bowel sounds positive, nontender, no organomegaly. Extremities have no ankle edema. Neurological exam Cranial nerves 2-12 test intact except for the right eye lid drooping. Tongue is midline without fasciculations. There is no tremor. There is no asterixis. The lower extremities have a 2-3 beat clonus without patellar hyperreflexia evident. Motor function is 5/5 throughout. Gait and balance are not tested. Skin has no rash or jaundice. There is no palmar erythema. Objective Labs Result Diagrams: 03/15/20 15:05 03/15/20 15:05 Labs: Laboratory Results - last 24 hr 03/15/20 03/15/20 03/15/20 15:05 15:05 15:05 WBC 9.5 RBC 5.25 Hgb 18.1 H Hct 50.8 MCV 96.9 MCH 34.5 H MCHC 35.6 RDW 15.1 H Plt Count 141 L Neut % (Auto) 68.6 Lymph % (Auto) 21.1 L Scott % (Auto) 9.4 Eos % (Auto) 0.6 L Baso % (Auto) 0.3 Neut # (Auto) 6500 Lymph # (Auto) 2000 Scott # (Auto) 900 Eos # (Auto) 100 Baso # (Auto) 0 PT 10.9 INR 1.0 APTT 31 D-Dimer Sodium 137 Potassium 3.4 Chloride 101 Carbon Dioxide 24 BUN 14 Creatinine 0.81 Estimated GFR > 60.0 BUN/Creatinine Ratio 17.3 Glucose 96 Calcium 8.5 Total Bilirubin 0.8 AST 80 H ALT 64 H Alkaline Phosphatase 90 Total Creatine Kinase 48 L CK-MB (CK-2) TNP CK-MB (CK-2) Rel Index TNP Troponin I 0.081 H NT-Pro-B Natriuret Pep Total Protein 7.0 Albumin 4.0 Globulin 3.0 Albumin/Globulin Ratio 1.3 Lipase 136 Urine RBC Urine WBC Ur Squamous Epith Cells Urine Bacteria Ur Culture Indicated? Ethyl Alcohol 03/15/20 03/15/20 03/15/20 15:05 15:05 16:00 WBC RBC Hgb Hct MCV MCH MCHC RDW Plt Count Neut % (Auto) Lymph % (Auto) Scott % (Auto) Eos % (Auto) Baso % (Auto) Neut # (Auto) Lymph # (Auto) Scott # (Auto) Eos # (Auto) Baso # (Auto) PT INR APTT D-Dimer < 200 Sodium Potassium Chloride Carbon Dioxide BUN Creatinine Estimated GFR BUN/Creatinine Ratio Glucose Calcium Total Bilirubin AST ALT Alkaline Phosphatase Total Creatine Kinase CK-MB (CK-2) CK-MB (CK-2) Rel Index Troponin I NT-Pro-B Natriuret Pep 23 Total Protein Albumin Globulin Albumin/Globulin Ratio Lipase Urine RBC 0-1/hpf Urine WBC 0-1/hpf Ur Squamous Epith Cells 0-1 /hpf Urine Bacteria None seen Ur Culture Indicated? Cult not indicated Ethyl Alcohol 160 H 03/15/20 18:00 WBC RBC Hgb Hct MCV MCH MCHC RDW Plt Count Neut % (Auto) Lymph % (Auto) Scott % (Auto) Eos % (Auto) Baso % (Auto) Neut # (Auto) Lymph # (Auto) Scott # (Auto) Eos # (Auto) Baso # (Auto) PT INR APTT D-Dimer Sodium Potassium Chloride Carbon Dioxide BUN Creatinine Estimated GFR BUN/Creatinine Ratio Glucose Calcium Total Bilirubin AST ALT Alkaline Phosphatase Total Creatine Kinase CK-MB (CK-2) CK-MB (CK-2) Rel Index Troponin I 0.080 H NT-Pro-B Natriuret Pep Total Protein Albumin Globulin Albumin/Globulin Ratio Lipase Urine RBC Urine WBC Ur Squamous Epith Cells Urine Bacteria Ur Culture Indicated? Ethyl Alcohol Assessment & Plan Assessment & Plan narrative: Alcohol withdrawal, present on admission, acute -alcohol level on admission of 0.16. Received phenobarbital in the emergency department. -begin lorazepam with CIWA protocol -begin thiamin daily -social service consult. The patient has decided to stop drinking, precipitating alcohol withdrawal symptoms evidently. Elevated troponin, present on admission, acute -per ED phone consult with Dr. De La Garza the patient will be ruled out with echocardiogram, serial troponins and a treadmill test was recommended. -the patient indicates that he is unable to tolerate a treadmill test and cannot walk for very long because of his chronic back condition. -the patient indicates that he would refuse to do a chemical stress test because of not wishing to ?put chemicals in his body.? Angioedema, present on admission, chronic -continue Singulair and famotidine. No longer on high-dose prednisone. Continue 2.5 mg prednisone with current taper. Chronic pain, present on admission, chronic -continue t.i.d. oxycodone as needed for chronic spinal/back pain. COVID-19 COVID-19 status: Not tested
[2020-03-15] MEDS: DEXTROSE 5%-0.9% NS 1,000 ML 100 ML IV (21:34)
[2020-03-15] MEDS: FAMOTIDINE 20 MG TABLET PO (21:35)
[2020-03-15] MEDS: MONTELUKAST 10 MG TABLET PO (21:35)
[2020-03-15] MEDS: LORazepam 0.5 MG TABLET PO ×2 (21:36→23:58)
[2020-03-15] MEDS: OXYCODONE/ACETAMINOPHEN 5/325 TABLET 1 TAB PO (22:51)
[2020-03-16 00:44] LABS: Troponin I 0.104 ng/mL (0.01-0.034)
[2020-03-16 00:59] VITALS: BP 148/87; PULSE 108; RESP 20; TEMP 36.7; O2SAT 97
[2020-03-16] MEDS: LORazepam 0.5 MG TABLET PO ×8 (01:58→16:33)
[2020-03-16 04:50] VITALS: BP 158/96; PULSE 89; RESP 18; TEMP 36.8; O2SAT 95
[2020-03-16 05:34] LABS: Add Manual Diff / Slide Review NO; Basophils Absolute Auto 0 /uL (0-100); Basophils Percent Auto 0.4 % (0-2); Eosinophils Absolute Auto 100 /uL (0-450); Eosinophils Percent Auto 1.3 % (2-4); Hematocrit 44.4 % (41-53); Hemoglobin 15.6 g/dL (13.5-17.5); Lymphocytes Absolute Auto 1500 /uL (1100-4500); Lymphocytes Percent Auto 17.1 % (25-40); Mean Corpuscular HGB Conc 35.2 % (30-36); Mean Corpuscular Hemoglobin 34.5 PG (26-34); Monocytes Absolute Auto 800 /uL (0-900); Monocytes Percent Auto 8.9 % (3-14); Neutrophils Absolute Auto 6500 /uL (1500-7000); Neutrophils Percent Auto 72.3 % (50-75); Platelet Count 108 X10^3/uL (150-400); Red Blood Cell Count 4.54 X10^6/uL (4.5-5.9); Red Cell Distribution Width 15.4 % (11.6-14.8); White Blood Cell Count 8.9 X10^3/uL (4.5-11.0)
[2020-03-16 05:48] LABS: Alanine Aminotransferase 49 IU/L (<50); Albumin 3.3 g/dL (3.5-5.0); Albumin Globulin Ratio 1.3 (1.0-2.8); Alkaline Phosphatase 58 U/L (38-126); Aspartate Aminotransferase 55 IU/L (17-59); BUN Creatinine Ratio 17.9 (6-22); Bilirubin Total 1.5 mg/dL (0.2-1.3); Blood Urea Nitrogen 14 mg/dL (9-20); Calcium 7.8 mg/dL (8.4-10.2); Carbon Dioxide 26 mmol/L (22-32); Chloride 104 mmol/L (98-107); Estimated Glomerular Filt Rate > 60.0 mL/min (>60); Globulin 2.6 g/dL (1.7-4.1); Glucose 96 mg/dL (80-110); HEMOLYSIS < 15 (0-50); Magnesium 1.7 mg/dL (1.6-2.3); Potassium 3.1 mmol/L (3.4-5.1); Sodium 137 mmol/L (137-145); Total Protein 5.9 g/dL (6.3-8.2)
[2020-03-16] MEDS: DEXTROSE 5%-0.9% NS 1,000 ML 100 ML IV ×2 (06:48→16:33)
[2020-03-16] MEDS: OXYCODONE/ACETAMINOPHEN 5/325 TABLET 1 TAB PO ×3 (06:51→20:56)
[2020-03-16] MEDS: FAMOTIDINE 20 MG TABLET PO ×2 (07:48→16:42)
[2020-03-16 08:16] VITALS: BP 147/93; PULSE 100; RESP 18; TEMP 36.8; O2SAT 96
--- NOTE | 2020-03-16 08:19 | PC.NURSE ---
Day shift: Talked with Pt about the need/rationale for SCD use. He refused SCD's.
[2020-03-16] MEDS: FOLIC ACID 1 MG TABLET PO (08:41)
[2020-03-16] MEDS: MULTIVITAMIN 1 TABLET 1 TAB PO (08:41)
[2020-03-16] MEDS: ENOXAPARIN 40 MG/0.4 ML SYRINGE SUBCUT (08:41)
[2020-03-16] MEDS: predniSONE 2.5 MG TABLET PO (08:42)
[2020-03-16] MEDS: THIAMINE 100 MG TABLET PO (08:46)
--- NOTE | 2020-03-16 11:00 | PT-IP ANOTE ---
Received PT orders and reviewed chart. Troponins trending up (0.08 -> 0.104). Discussed case with hospitalist who advised holding PT evaluation today. Will check on pt again later today or morning of 03/17/20.
[2020-03-16 12:00] VITALS: BP 163/114; PULSE 90; RESP 20; TEMP 36.3; O2SAT 97
--- NOTE | 2020-03-16 14:26 | CM.DANOTE ---
DCP: Case received, EMR reviewed and briefly met with patient during rounds. Had attempted several more times to meet with patient, but he was sleeping, and/or, medical staff were in room. Was able to obtain information from patient's chart, regarding his living situation, and health history. DCP assessment completed with information currently available. Patient is a 60 year old male who admitted yesterday evening to the care of the hospitalist team. PCP: Dr. Holman. Payer: confirmed: Medicare/Medicaid (spend down program). Patient came to the hospital via ambulance secondary to increased weakness/dizziness. Patient has history of alcohol abuse, and has also been recently here for angioedema. Patient noted alcohol level in ER of 160. He also noted an increase in his troponin level. Patient resides in [place] with his partner/anastasiya, Brisa, who is a nurse. He also has a daughter named Kathy Wall, who is his decision maker. 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 He has had a history of drinking 1/5 of hard alcohol, and had been cutting back. Briefly, met in patient's room during morning rounds. He was sitting up in bed, but restless. He was eager to go home today. Patient was to have echo today, and declined having a stress test. His morning CIWA score was 8. He has been alert, but restless. P: DCP to continue to be available for any resources needed. Can provide information to patient regarding [facility], and their phone number, regarding sub-acute detoxification services, if patient wants outside resources. Heidi Myles RN/Supervisor [employer]
[2020-03-16 15:06] LABS: Troponin I 0.071 ng/mL (0.01-0.034)
[2020-03-16 15:35] VITALS: BP 154/104; PULSE 89; RESP 18; TEMP 36.5; O2SAT 96
--- NOTE | 2020-03-16 17:20 | P.PN_ITS ---
Subjective Subjective Date Patient Seen: 03/16/20 Interval history: Patient is a 60-year-old male admitted to the hospital for alcohol withdrawal and elevated troponins. Patient denies any chest pain. He has had some minimal tremors. He has had no hallucinations. Patient is adamant that he will not have a stress test either chemical or ambulatory. He requested follow-up with his primary care physician for evaluation at discharge. Exam Vital Signs (past 8 hours): - 03/16/20 12:00 03/16/20 15:35 Temperature 97.3 F L 97.7 F Pulse Rate 90 89 Respiratory Rate 20 18 Blood Pressure 163/114 H 154/104 H Pulse Oximetry 97 96 Oxygen Delivery Method Room Air Oxygen Flow Rate 0 Narrative Exam Narrative: Pleasant gentleman resting comfortably in no obvious distress Lungs: Clear to auscultation Cardiac exam: Regular rate and rhythm normal S1-S2 Abdomen: Soft nontender nondistended Extremities: No edema Positive tremor Objective Labs Result Diagrams: 03/16/20 05:22 03/16/20 05:22 Labs: Laboratory Results - last 24 hr 03/15/20 03/15/20 03/16/20 15:05 18:00 00:10 WBC RBC Hgb Hct MCV MCH MCHC RDW Plt Count Neut % (Auto) Lymph % (Auto) [place] % (Auto) Eos % (Auto) Baso % (Auto) Neut # (Auto) Lymph # (Auto) [place] # (Auto) Eos # (Auto) Baso # (Auto) Sodium Potassium Chloride Carbon Dioxide BUN Creatinine Estimated GFR BUN/Creatinine Ratio Glucose Calcium Magnesium Total Bilirubin AST ALT Alkaline Phosphatase Troponin I 0.080 H 0.104 H NT-Pro-B Natriuret Pep 23 Total Protein Albumin Globulin Albumin/Globulin Ratio Ethyl Alcohol 160 H 03/16/20 03/16/20 03/16/20 05:22 05:22 14:20 WBC 8.9 RBC 4.54 Hgb 15.6 Hct 44.4 MCV 98.0 MCH 34.5 H MCHC 35.2 RDW 15.4 H Plt Count 108 L Neut % (Auto) 72.3 Lymph % (Auto) 17.1 L [place] % (Auto) 8.9 Eos % (Auto) 1.3 L Baso % (Auto) 0.4 Neut # (Auto) 6500 Lymph # (Auto) 1500 [place] # (Auto) 800 Eos # (Auto) 100 Baso # (Auto) 0 Sodium 137 Potassium 3.1 L Chloride 104 Carbon Dioxide 26 BUN 14 Creatinine 0.78 Estimated GFR > 60.0 BUN/Creatinine Ratio 17.9 Glucose 96 Calcium 7.8 L Magnesium 1.7 Total Bilirubin 1.5 H AST 55 ALT 49 Alkaline Phosphatase 58 Troponin I 0.071 H NT-Pro-B Natriuret Pep Total Protein 5.9 L Albumin 3.3 L Globulin 2.6 Albumin/Globulin Ratio 1.3 Ethyl Alcohol Assessment & Plan Assessment & Plan narrative: Impression 1. Alcohol dependence with alcohol withdrawal -will start Librium 25 mg t.i.d. -continue as needed Ativan -continue to follow the CIHI protocol 2. Hypokalemia -will repeat 3. Elevated troponin -improved -no chest, no EKG changes, doubt myocardial infarction -will continue to monitor -patient does not want further workup, he will follow-up with his PCP at discharge 4. Hypertension -beta-magi 5. Angioedema -continue current treat 6. Chronic pain Anticipate discharge home in 24-48 hours once alcohol withdrawal has resolved
[2020-03-16] MEDS: METOPROLOL ER 25 MG TABLET PO (18:08)
[2020-03-16] MEDS: POTASSIUM CHLORIDE 20 MEQ TAB 40 MEQ PO (18:08)
--- NOTE | 2020-03-16 18:12 | DI.RAD.S_ITS ---
PROCEDURE: XR CHEST 1V INDICATIONS: SHORTNESS OF BREATH TECHNIQUE: One view of the chest was acquired. COMPARISON: [facility], CR, XR CHEST 1V, 03/15/2020, 15:53. FINDINGS: Surgical changes and devices: Partially visualized effusion hardware. Lungs and pleura: Mild increased vascularity. Coarsened streaky appearance is noted within the right base. Mediastinum: Mediastinal contours appear normal. Heart size is normal. Bones and chest wall: No suspicious bony lesions. Overlying soft tissues appear unremarkable. IMPRESSION: Increased vascularity suggestive of edema. Coarsened appearance of the right base could represent focal edema or developing airspace disease such as pneumonia. Dictated by: Anna Herzog M.D. on 03/16/2020 at 19:14 Approved by: Anna Herzog M.D. on 03/16/2020 at 19:15
[2020-03-16] MEDS: chlordiazePOXIDE 25 MG CAPSULE PO (18:22)
[2020-03-16 19:13] LABS: NT-proBNP (BNP-Adult 18+) 85 pg/mL (<125)
[2020-03-16 19:25] VITALS: BP 146/98; PULSE 82; RESP 16; TEMP 37.1; O2SAT 98
[2020-03-16] MEDS: MONTELUKAST 10 MG TABLET PO (20:56)
--- NOTE | 2020-03-16 23:26 | PC.NURSE ---
Patient takes Montelukast in evenings, not in AM. Dose given this evening 03/16. Med needs to be rescheduled for evenings by pharmacy.
[2020-03-17 00:20] VITALS: BP 150/99; PULSE 74; RESP 18; TEMP 36.3; O2SAT 97
[2020-03-17] MEDS: KETOROLAC 15 MG/ML VIAL IV ×2 (01:58→18:33)
[2020-03-17 04:00] VITALS: BP 136/100; PULSE 73; RESP 18; TEMP 36.3; O2SAT 97
[2020-03-17 05:58] LABS: BUN Creatinine Ratio 16.9 (6-22); Blood Urea Nitrogen 12 mg/dL (9-20); Carbon Dioxide 24 mmol/L (22-32); Chloride 107 mmol/L (98-107); Estimated Glomerular Filt Rate > 60.0 mL/min (>60); Glucose 92 mg/dL (80-110); HEMOLYSIS < 15 (0-50); Potassium 3.4 mmol/L (3.4-5.1); Sodium 137 mmol/L (137-145)
[2020-03-17 06:07] LABS: Troponin I 0.104 ng/mL (0.01-0.034)
[2020-03-17] MEDS: FAMOTIDINE 20 MG TABLET PO ×2 (07:42→16:38)
[2020-03-17 08:00] VITALS: BP 138/90; PULSE 71; RESP 16; TEMP 37; O2SAT 98
--- NOTE | 2020-03-17 08:02 | P.DS_ITS ---
History of Present Illness History of Present Illness Date Patient Seen: 03/17/20 Chief complaint: weakness/dizzy x 4days Narrative: This is a 60-year-old male with a history of severe recurrent angioedema, currently completing the last week of his prednisone taper at 2.5 mg a day, along with ongoing b.i.d. famotidine and daily Singulair, who now presents with 4 days of fatigue, dizziness, lightheadedness and agitation. Five days ago he had decided to stop drinking so much whiskey so began cutting back from his 1/5 of a day habit at around the same time of the onset of these symptoms. His alcohol level is 0.16. His troponin level is elevated at 0.08. This was discussed with Cardiology by the emergency department physician with recommendation to proceed with stress test, echocardiogram, serial troponins and overnight telemetry observation. Unfortunately he declines the recommended treadmill due to chronic back pain and declines a chemical stress test due to fears about chemicals. His AST naomi from 46 on 02/25 to 80 and his ALT is stable at 64 compared to 67 on 02/25. He has had no chest pain but has had some chest palpitations. His head CT was negative. He received IV phenobarbital 260 mg along with thiamine in the emergency department. His last drink was 2 shots of whiskey at 1:00 p.m. today. He has a history of hypertension but no history of diabetes, hyperlipidemia or family history of coronary artery disease (although his father had CHF). The chest x-ray is normal with just some crowded lung markings and the EKG is personally reviewed revealing sinus tachycardia without any abnormal ST or T-wave changes. Discharge Providers Provider Date of admission: 03/15/20 20:04 Discharge Date: 03/17/20 Primary care physician: Adán Holman Consults: 03/15/20 20:46 Consult to Dietitian, Adult Routine Comment: Reason For Exam: Alcoholism 03/15/20 20:48 Consult to Discharge Planning Routine Comment: Consult to Physical Therapy Evaluate & Treat Comment: Physician Instructions: Evaluate and Treat Discharge provider: Chichi Fleming MD Summary Hospital Course Discharge Diagnosis: 1. Alcohol dependence with alcohol withdrawal syndrome 2. Elevated troponin, no chest pain, echo showing mild apical hypokinesis 3. Hypertension 4. Angioedema Hospital Course: Patient was admitted to the hospital for alcohol dependence and alcohol withdrawal. He received phenobarbital in the emergency department. Who was placed on Ativan as needed. The patient was switched over to Librium scheduled q.8 hours. He had no further hallucinations his tremor resolved and overall alcohol withdrawal improved. He had no hallucinations. The patient complained initially of shortness of breath. Chest x-ray showed some minimal fluid in the lungs. Patient's BNP was less than 100 (85) He was offered to take Lasix which he declined. I reviewed with him elevated troponins as well as his echocardiogram results. Recommended that the patient undergo stress testing. He declined dressed stress testing as he felt that this would aggregate his cervical spine. I offered the patient to have a chemical stress test which he declined. The patient was anxious to leave the hospital. He will follow-up with his PCP [place] him on [facility]. I recommended that the patient take a baby aspirin daily, he will be placed on a beta-magi for his blood pressure and heart. Will start low-dose statin as well. Patient was deemed appropriate for discharge and arrangements were made for him to discharge home. Status at Discharge Cognitive/behavioral status at discharge: oriented Functional status at discharge: independent ambulation Overall status at discharge: patient is back to baseline Time Spent with Patient Time spent: Less than 30 minutes Exam Vital Signs (past 8 hours): - 03/17/20 00:20 03/17/20 04:00 Temperature 97.3 F L 97.3 F L Pulse Rate 74 73 Respiratory Rate 18 18 Blood Pressure 150/99 H 136/100 H Pulse Oximetry 97 97 Oxygen Delivery Method Room Air Oxygen Flow Rate 0 Narrative Exam Narrative: Pleasant gentleman in no acute distress Lungs: Decreased breath sounds with occasional a right basilar crackles Cardiac exam: Regular rate and rhythm normal S1-S2 Abdomen: Soft nontender nondistended Extremities: No edema Objective Labs Result Diagrams: 03/16/20 05:22 03/17/20 05:11 Labs: Laboratory Results - last 24 hr 03/16/20 03/16/20 03/17/20 14:20 14:20 05:11 Sodium 137 Potassium 3.4 Chloride 107 Carbon Dioxide 24 BUN 12 Creatinine 0.71 Estimated GFR > 60.0 BUN/Creatinine Ratio 16.9 Glucose 92 Calcium 8.0 L Troponin I 0.071 H 0.104 H NT-Pro-B Natriuret Pep 85 Discharge Plan Discharge Plan Discharge Problem: Alcohol withdrawal, Elevated troponin Patient Disposition: Home Discharge orders & Medications Prescriptions: New metoprolol succinate 25 mg Tablet Extended Release 24 Hr 25 mg PO DAILY Qty: 30 RF: 0 aspirin 81 mg tablet,delayed release (DR/EC) 81 mg PO DAILY Qty: 30 RF: 0 atorvastatin 20 mg tablet 20 mg PO BEDTIME Qty: 30 RF: 0 Continued epinephrine [EpiPen] 0.3 mg/0.3 mL auto-injector 0.3 mg IM Q15M PRN (Reason: angioedema) Qty: 2 RF: 0 diphenhydramine HCl [Benadryl] 25 mg capsule 25 mg PO BEDTIME Qty: 60 RF: 0 prednisone 10 mg tablet See Rx Instructions .ROUTE .COMPLEX Qty: 14 RF: 0 valacyclovir 1 gram tablet 1,000 mg PO Q8H Qty: 21 RF: 0 oxycodone-acetaminophen [Percocet] 5-325 mg tablet 1 tab PO TID PRN (Reason: pain) Qty: 10 RF: 0 hydrochlorothiazide 25 mg tablet 25 mg PO QAM RF: 0 famotidine 20 mg Tablet 20 mg PO BID RF: 0 prednisone 20 mg Tablet 40 mg PO DAILY RF: 0 Follow up/Referrals: Adán Holman [Primary Care Provider] - Diet/Activity/Treatments Diet: Low-sodium and Low-cholesterol Activity: as tolerated Visit Report/Discharge Packet Instructions: Cardiac Troponin, Delirium Tremens, Echocardiogram Discharge Data Primary Care Provider: Adán Holman Attending Provider: Arnold Watson Admit Date/Time: 03/15/20 20:04
[2020-03-17] MEDS: FOLIC ACID 1 MG TABLET PO (09:35)
[2020-03-17] MEDS: MULTIVITAMIN 1 TABLET 1 TAB PO (09:35)
[2020-03-17] MEDS: chlordiazePOXIDE 25 MG CAPSULE PO ×2 (09:35→14:16)
[2020-03-17] MEDS: ENOXAPARIN 40 MG/0.4 ML SYRINGE SUBCUT (09:35)
[2020-03-17] MEDS: predniSONE 2.5 MG TABLET PO (09:36)
[2020-03-17] MEDS: FUROSEMIDE 20 MG/2 ML VIAL IV (09:36)
[2020-03-17] MEDS: THIAMINE 100 MG TABLET PO (09:42)
[2020-03-17] MEDS: OXYCODONE/ACETAMINOPHEN 5/325 TABLET 1 TAB PO ×4 (09:43→22:10)
--- NOTE | 2020-03-17 10:04 | PT-IP ANOTE ---
Discussed pt in team rounds. Per MD, hold PT eval until after stress test. Will continue to follow.
[2020-03-17 12:00] VITALS: BP 138/86; PULSE 70; RESP 17; TEMP 37.1; O2SAT 98
[2020-03-17] MEDS: MAG HYDROX/ALUM/SIMETH 30 ML UDC PO (14:15)
[2020-03-17 16:05] VITALS: BP 147/97; PULSE 74; RESP 17; TEMP 36.4; O2SAT 97
--- NOTE | 2020-03-17 17:21 | PM.PN.1 ---
Subjective Subjective Date Patient Seen: 03/17/20 Interval history: Patient is a 60-year-old male who was admitted to the hospital for alcohol withdrawal. He has no tremor, his CIWA score has improved, he has no evidence of hallucinations or withdrawal The patient denies any chest pain. He initially was refusing a stress test. After reconsideration the patient is willing to have a stress test. Unfortunately he has had a cup of coffee therefore his test will be aborted until tomorrow morning. Exam Vital Signs (past 8 hours): - 03/17/20 12:00 03/17/20 16:05 Temperature 98.7 F 97.5 F L Pulse Rate 70 74 Respiratory Rate 17 17 Blood Pressure 138/86 147/97 H Pulse Oximetry 98 97 Oxygen Delivery Method Room Air Oxygen Flow Rate 0 Narrative Exam Narrative: Pleasant gentleman in no obvious distress Lungs: Clear to auscultation Cardiac exam: Regular rate and rhythm normal S1-S2 Abdomen soft nontender nondistended Extremities: No edema Objective Labs Result Diagrams: 03/16/20 05:22 03/17/20 05:11 Labs: Laboratory Results - last 24 hr 03/16/20 03/17/20 14:20 05:11 Sodium 137 Potassium 3.4 Chloride 107 Carbon Dioxide 24 BUN 12 Creatinine 0.71 Estimated GFR > 60.0 BUN/Creatinine Ratio 16.9 Glucose 92 Calcium 8.0 L Troponin I 0.104 H NT-Pro-B Natriuret Pep 85 Assessment & Plan Assessment & Plan narrative: Impression 1. Alcohol dependence with alcohol withdrawal -improved -will decrease Librium 2. Non ST-elevation myocardial infarction -echo reveals new wall motion abnormalities and hypokinetic -troponins improving but still elevated -will obtain stress test tomorrow -patient to start on aspirin, statin, beta-magi today 3. Angioedema -continue prednisone taper Discharge pending results of echo tomorrow
[2020-03-17 18:25] LABS: Cholesterol 113 mg/dL (140-199); HDL Cholesterol 46 mg/dL (40-60); LDL Cholesterol Calculated 52 mg/dL (<100); Triglycerides 77 mg/dL (35-150)
[2020-03-17 20:00] VITALS: BP 139/91; PULSE 73; RESP 18; TEMP 36.7; O2SAT 99
[2020-03-17] MEDS: ATORVASTATIN 20 MG TABLET PO (20:37)
[2020-03-17] MEDS: MONTELUKAST 10 MG TABLET PO (20:37)
[2020-03-18] VITALS: BP 138/100; PULSE 73; RESP 18; TEMP 36.5; O2SAT 98
[2020-03-18] MEDS: FAMOTIDINE 20 MG TABLET PO ×2 (07:56→18:05)
[2020-03-18 08:00] VITALS: BP 135/89; PULSE 75; RESP 17; TEMP 37.2; O2SAT 97
[2020-03-18] MEDS: THIAMINE 100 MG TABLET PO (08:42)
[2020-03-18] MEDS: MULTIVITAMIN 1 TABLET 1 TAB PO (08:42)
[2020-03-18] MEDS: ENOXAPARIN 40 MG/0.4 ML SYRINGE SUBCUT (08:43)
[2020-03-18] MEDS: predniSONE 2.5 MG TABLET PO (08:43)
[2020-03-18] MEDS: FOLIC ACID 1 MG TABLET PO (08:43)
[2020-03-18] MEDS: ASPIRIN 325 MG TABLET PO (08:43)
--- NOTE | 2020-03-18 10:26 | PC.NURSE ---
Metoprolol AM dose was held d/t pending stress test today. Lovenox AM dose was held as well- large bruises on bilat lower abdomen notes MD made aware okay to receive Lovenox but pt declines. Pt refused Ketorolac dose at 0930 Pt denies any pain or any discomfort., refused SCD bilat legs patient teaching was done. Lungs CTA, BT active x 4. VSS. Pt in his bed sleeping. Call light within reach.
--- NOTE | 2020-03-18 11:26 | PC.NURSE ---
Karen in [facility] called to notify us that patient can have light lunch at noon with NO caffeine, but then NPO at 12:30 for planned stress test at 1500 today.
--- NOTE | 2020-03-18 11:31 | PT-IP ANOTE ---
Talked to nurse and stated that pt still has not have stress test done and does not know when he will get it. talked to the doctor and stated that she still wants PT to hold off until stress test is done because if it is not normal, PT should not move pt. will continue to f/u.
[2020-03-18] MEDS: OXYCODONE/ACETAMINOPHEN 5/325 TABLET 1 TAB PO ×3 (12:37→21:53)
[2020-03-18 14:00] VITALS: BP 145/87; PULSE 76; RESP 17; TEMP 37.1; O2SAT 98
[2020-03-18] MEDS: MAG HYDROX/ALUM/SIMETH 30 ML UDC PO (14:38)
--- NOTE | 2020-03-18 16:12 | PT-IP ANOTE ---
still no stress test result as of the moment. checked on pt and pt with signals collection technician and nurse confirmed that pt was about to go for his stress test. will f/u tomorrow once result of stress test obtained.
[2020-03-18 17:00] VITALS: BP 156/108; PULSE 76; RESP 19; TEMP 36.2; O2SAT 98
--- NOTE | 2020-03-18 17:06 | PM.PN.1 ---
Subjective Subjective Date Patient Seen: 03/18/20 Interval history: Patient has had no tremors, no headache, no hallucinations. Denies any chest pain. Patient is scheduled for stress test today. Exam Vital Signs (past 8 hours): - 03/18/20 14:00 03/18/20 17:00 Temperature 98.8 F 97.2 F L Pulse Rate 76 76 Respiratory Rate 17 19 Blood Pressure 145/87 H 156/108 H Pulse Oximetry 98 98 Oxygen Delivery Method Room Air Oxygen Flow Rate 0 Narrative Exam Narrative: Pleasant gentleman in no acute distress Lungs: Clear to auscultation Cardiac exam: Regular rate and rhythm normal S1-S2 Abdomen: Soft nontender nondistended Extremities no edema Objective Labs Result Diagrams: 03/16/20 05:22 03/17/20 05:11 Labs: Laboratory Results - last 24 hr 03/17/20 03/17/20 05:11 05:11 Sodium 137 Potassium 3.4 Chloride 107 Carbon Dioxide 24 BUN 12 Creatinine 0.71 Estimated GFR > 60.0 BUN/Creatinine Ratio 16.9 Glucose 92 Calcium 8.0 L Troponin I 0.104 H Triglycerides 77 Cholesterol 113 L LDL Cholesterol, Calc 52 HDL Cholesterol 46 Assessment & Plan Assessment & Plan narrative: Impression 1. Type 2 myocardial infarction Patient with elevated troponin Echo reveals mild wall motion abnormality Second phase stress test to be completed tomorrow Continue aspirin, statin, beta-magi 2. Alcohol dependence with alcohol withdrawal -no further evidence of DT -will continue Librium but change to as needed 3. Hypertension -continue thiazide -continue beta-magi Patient to be discharged home tomorrow after 2nd phase of stress testing tomorrow
[2020-03-18] MEDS: ONDANSETRON 4 MG/2 ML INJ IV (18:04)
[2020-03-18 19:42] VITALS: BP 135/96; PULSE 76; RESP 18; TEMP 36; O2SAT 96
[2020-03-18] MEDS: MONTELUKAST 10 MG TABLET PO (21:54)
[2020-03-18 23:55] VITALS: BP 146/85; PULSE 60; RESP 18; TEMP 36.5; O2SAT 96
[2020-03-19 03:00] VITALS: BP 136/82; PULSE 72; RESP 18; TEMP 36.3; O2SAT 97
[2020-03-19] MEDS: OXYCODONE/ACETAMINOPHEN 5/325 TABLET 1 TAB PO ×2 (06:24→11:31)
[2020-03-19] MEDS: FAMOTIDINE 20 MG TABLET PO (06:25)
[2020-03-19 07:20] VITALS: BP 137/87; PULSE 79; RESP 20; TEMP 36.1; O2SAT 95
[2020-03-19 11:00] VITALS: BP 143/101; PULSE 71; RESP 20; TEMP 36.2; O2SAT 97
[2020-03-19] MEDS: MULTIVITAMIN 1 TABLET 1 TAB PO (11:07)
[2020-03-19] MEDS: THIAMINE 100 MG TABLET PO (11:08)
[2020-03-19] MEDS: predniSONE 2.5 MG TABLET PO (11:08)
[2020-03-19] MEDS: ASPIRIN 325 MG TABLET PO (11:08)
[2020-03-19] MEDS: FOLIC ACID 1 MG TABLET PO (11:08)
[2020-03-19] MEDS: METOPROLOL ER 25 MG TABLET PO (11:11)
[2020-03-19] MEDS: ONDANSETRON 4 MG/2 ML INJ IV (11:12)
[2020-03-19 12:03] VITALS: BP 140/97; PULSE 71
--- NOTE | 2020-03-19 16:02 | CM.DPNOTE ---
DC Note DC home today, as expected. Patient eager to return home and denies needs from this PATIENT LIAISON P: DC home w/family, close outpt f/u encouraged JW
--- NOTE | 2020-03-19 16:22 | P.DS_ITS ---
History of Present Illness History of Present Illness Chief complaint: weakness/dizzy x 4days Narrative: This is a 60-year-old male with a history of severe recurrent angioedema, currently completing the last week of his prednisone taper at 2.5 mg a day, along with ongoing b.i.d. famotidine and daily Singulair, who now presents with 4 days of fatigue, dizziness, lightheadedness and agitation. Five days ago he had decided to stop drinking so much whiskey so began cutting back from his 1/5 of a day habit at around the same time of the onset of these symptoms. His alcohol level is 0.16. His troponin level is elevated at 0.08. This was discussed with Cardiology by the emergency department physician with r ecommendation to proceed with stress test, echocardiogram, serial troponins and overnight telemetry observation. Unfortunately he declines the recommended treadmill due to chronic back pain and declines a chemical stress test due to fears about chemicals. His AST naomi from 46 on 02/25 to 80 and his ALT is stable at 64 compared to 67 on 02/25. He has had no chest pain but has had some chest palpitations. His head CT was negative. He received IV phenobarbital 260 mg along with thiamine in the emergency department. His last drink was 2 shots of whiskey at 1:00 p.m. today. He has a history of hypertension but no history of diabetes, hyperlipidemia or family history of coronary artery disease (although his father had CHF). The chest x-ray is normal with just some crowded lung markings and the EKG is personally reviewed revealing sinus tachycardia without any abnormal ST or T-wave changes. Discharge Providers Provider Date of admission: 03/17/20 14:40 Discharge Date: 03/19/20 Primary care physician: Adán Holman Consults: 03/15/20 20:46 Consult to Dietitian, Adult Routine Comment: Reason For Exam: Alcoholism 03/15/20 20:48 Consult to Discharge Planning Routine Comment: Consult to Physical Therapy Evaluate & Treat Comment: Physician Instructions: Evaluate and Treat Discharge provider: Chichi Fleming MD Summary Hospital Course Discharge Diagnosis: 1. Type 2 myocardial infarction, manifested as elevated troponins, and new wall motion abnormalities on echocardiogram 2. Alcohol dependence with alcohol withdrawal 3. Hypertension 4. Angioedema Hospital Course: Patient was admitted to the hospital with acute alcohol. Patient was placed on an alcohol withdrawal protocol. He tolerated this without difficulty and symptoms of DTs really quickly resolved. The patient sound to have an elevated troponin. His troponin was 0.080 in peaked at 0.104. The patient denied any chest pain. He did have an echocardiogram however that showed new wall motion abnormalities in the apical region of the heart. He then underwent exercise and resting stress test which showed no evidence of reversible ischemia. The patient's alcohol withdrawal completely resolved. He had no chest pain. He was deemed appropriate for discharge and arrangements were made for him to be discharged home. Patient's blood pressure was elevated here in the hospital. He was started on metoprolol. He also was continued on his atorvastatin. Patient will follow-up with his PCP next week. Status at Discharge Cognitive/behavioral status at discharge: oriented Functional status at discharge: independent ambulation Overall status at discharge: patient is back to baseline Time Spent with Patient Time spent: Less than 30 minutes Exam Vital Signs (past 8 hours): - 03/19/20 11:00 03/19/20 12:03 Temperature 97.1 F L Pulse Rate 71 71 Respiratory Rate 20 Blood Pressure 143/101 H 140/97 H Pulse Oximetry 97 Oxygen Delivery Method Room Air Oxygen Flow Rate 0 Narrative Exam Narrative: Pleasant gentleman in no obvious distress Lungs: Clear to auscultation Cardiac exam: Regular rate and rhythm normal S1-S2 Abdomen: Soft nontender nondistended Extremities: No edema Objective Labs Result Diagrams: 03/16/20 05:22 03/17/20 05:11 Discharge Plan Discharge Plan Patient Disposition: Home Discharge orders & Medications Prescriptions: New metoprolol succinate 25 mg Tablet Extended Release 24 Hr 25 mg PO DAILY Qty: 30 RF: 0 aspirin 81 mg tablet,delayed release (DR/EC) 81 mg PO DAILY Qty: 30 RF: 0 atorvastatin 20 mg tablet 20 mg PO BEDTIME Qty: 30 RF: 0 Continued epinephrine [EpiPen] 0.3 mg/0.3 mL auto-injector 0.3 mg IM Q15M PRN (Reason: angioedema) Qty: 2 RF: 0 diphenhydramine HCl [Benadryl] 25 mg capsule 25 mg PO BEDTIME Qty: 60 RF: 0 prednisone 10 mg tablet See Rx Instructions .ROUTE .COMPLEX Qty: 14 RF: 0 valacyclovir 1 gram tablet 1,000 mg PO Q8H Qty: 21 RF: 0 oxycodone-acetaminophen [Percocet] 5-325 mg tablet 1 tab PO TID PRN (Reason: pain) Qty: 10 RF: 0 hydrochlorothiazide 25 mg tablet 25 mg PO QAM RF: 0 famotidine 20 mg Tablet 20 mg PO BID RF: 0 prednisone 20 mg Tablet 40 mg PO DAILY RF: 0 Follow up/Referrals: Adán Holman [Primary Care Provider] - Diet/Activity/Treatments Diet: Low-sodium and Low-cholesterol Activity: as tolerated Visit Report/Discharge Packet Instructions: DI for Heart Attack, DI for Alcohol Abuse, Atorvastatin, Metoprolol, Aspirin Visit Report Forms: Patient Portal/API, Stroke Signs & Symptoms Discharge Data Primary Care Provider: Adán Holman Discharges patient from system. Discharge Date/Time: 03/19/20 13:35
--- NOTE | 2020-03-19 17:16 | DI.NM.S_ITS ---
DATE OF SERVICE: 03/18/2020 PROCEDURE PERFORMED: Pharmacologic stress and rest myocardial perfusion imaging with gating to assess ejection fraction and regional wall motion. ORDERING PROVIDER: Dr. Fleming. INDICATIONS: The patient is a 60-year-old male admitted with weakness and abnormal troponin. PHARMACOLOGIC CARDIAC STRESS: Per protocol, 0.4 mg of regadenoson was infused, augmented by hand cop breaker exercise. With this, he had a normal hemodynamic response to this and denied any chest discomfort. He had minimal dyspnea. His resting ECG appears normal with sinus rhythm and no ST-segment abnormalities. There are no significant ST-segment shifts or arrhythmias with pharmacologic stress with the exception of a rare isolated PVC. Per protocol, he was injected with 25.9 millicuries of technetium-99m Myoview and was imaged 15 minutes later using a gated SPECT acquisition protocol. He returned the following day and was reinjected with an additional 25.8 millicuries of technetium-99m Myoview and was imaged 30 minutes later using a gated SPECT acquisition protocol. FINDINGS: 1. Raw data: There is fair myocardial tracer uptake although with some obvious attenuation artifact. Lung/heart ratio was normal at 0.39 with a normal TID ratio of 1.03. 2. Quantitated gated SPECT: Post-stress ejection fraction is 60% without any focal wall motion abnormalities. Resting ejection fraction is also 60% with a mildly increased end-diastolic volume of 155 mL. 3. Myocardial perfusion imaging: Post-stress supine images show a somewhat heterogeneous pattern of tracer activity, likely due to attenuation with a slight defect at the base of the inferior wall and another mild defect throughout the distal portion of the left ventricle. Both defects essentially resolve on prone imaging, which reveal a fairly normal, homogeneous perfusion pattern. The resting images show an identical perfusion pattern of that of the post-stress supine images without any clear areas of significant improvement. CONCLUSION: 1. Probable normal myocardial perfusion study. 2. Mild fixed defects in the proximal inferior wall and the distal anteroapex, both of which completely resolve on prone imaging, suggesting attenuation artifact. There is no compelling evidence for myocardial ischemia or previous myocardial infarction. 3. Normal left ventricular systolic function without regional wall motion abnormality, although mildly increased left ventricular volumes. 4. No angina or ECG evidence of ischemia with pharmacologic vasodilator stress. Elroy Larkin - [facility]/earnestine/whitney doc#: [id number]/job#: [id number] dd: 03/19/2020 12:33:00 dt: 03/19/2020 16:58:00 DICTATING MD/COPIES TO: Elmo Boss MD; Dr. Fleming COPIES MNE: DL; ; Dr. Fleming
== END 2020-03-19 13:35 | disposition home or self-care (01) | DRG 896 ==
LOC: ED 20:00 → AC 03-16 09:24
PROVIDERS: Internal Medicine; Admitting Provider Family Medicine; Emergency Provider Emergency Medicine; PCP Physician Assistant Medical; Referring Provider Emergency Medicine; Visit Provider Family Medicine
DX: F10.230 Alcohol dependence with withdrawal, uncomplicated (principal); I21.A1 Myocardial infarction type 2; Y90.6 Blood alcohol level of 120-199 mg/100 ml; T78.3XXA Angioneurotic edema, initial encounter; B02.9 Zoster without complications; I10 Essential (primary) hypertension; E87.6 Hypokalemia; Z86.73 Personal history of transient ischemic attack (TIA), and cerebral infarction without residual deficits; G89.29 Other chronic pain; Z79.891 Long term (current) use of opiate analgesic
CPT/HCPCS: 36415; 36592; 70450; 71045; 78452; 80048; 80053; 80061; 80320; 81003; 81015; 82550; 83690; 83735; 83880; 84484; 85025; 85379; 85610; 85730; 93005; 93010; 93017; 93306; 96361; 96374; 96375; 99285; G0378; A9270; A9502; J1650; J1885; J1940; J2060; J2405; J2560; J2785

== ENCOUNTER 2020-04-05 09:32 | Emergency (ER) | payer MEDICARE, MEDICAID, SELFPAY ==
[2018-08-01 09:00] VITALS: PULSE 43; RESP 16; O2SAT 96
[2020-03-15 20:55] VITALS: BMI 30.4
[2020-04-05] VITALS (12 sets, daily range): BP systolic 126–176; BP diastolic 87–105; PULSE 101–116; RESP 17–25; TEMP 36.9; O2SAT 94–96; BMI 45.6
[2020-04-05] MEDS: SODIUM CHLORIDE 0.9% 1,000 ML 1000 ML IV (09:40)
--- NOTE | 2020-04-05 09:47 | ED.ABDPAIN ---
HPI - Abdominal Pain General Chief Complaint: Abdominal Pain Stated Complaint: SOB, ABD pain, ETOH Time Seen by Provider: 04/05/20 09:47 Source: patient and EMS Mode of arrival: EMS Limitations: no limitations History of Present Illness HPI narrative: CC: Abdominal Pain HPI: The patient is a 60-year-old male who presents to the emergency department with a vague history which on further questioning was determined to be abdominal pain. The patient states that his last drink was at 5:30 a.m. this morning. He states that he normally drinks a 5th of whiskey per day in a 24 hour time. The patient questionably appears intoxicated. He complains that he cannot keep his eyes open. He has had difficulty for the last 4 days prior to admission. He has also complained that he has had abdominal pain in the right upper quadrant. And that he has been constipated for the last 2 days without a bowel movement. He denies a history of diarrhea irritable bowel syndrome Crohn's disease ulcerative colitis or diverticulosis diverticulitis. He complains that his right tongue is swollen. However he denies any difficulty in swallowing. He has had no chest pain. He has had shortness of breath stating he can not take a deep enough breath. His pain is crampy in nature and is 5 to 6/10 in intensity as he is pointing to the right upper quadrant. He denies a history of diabetes mellitus pancreatitis congestive heart failure myocardial infarction COPD or asthma. He states he has not had his appendix or gallbladder removed. He smokes cigarettes daily drinks at least 1/5 of whiskey per day. He does not use marijuana or any other drugs. Related Data Home Medications Medication Instructions Recorded Confirmed hydrochlorothiazide 25 mg PO QAM 06/10/19 03/15/20 famotidine 20 mg PO BID 01/10/20 03/15/20 prednisone 40 mg PO DAILY 01/10/20 03/15/20 Previous Rx's Medication Instructions Recorded epinephrine [EpiPen] 0.3 mg IM Q15M PRN #2 each 11/14/19 diphenhydramine HCl [Benadryl] 25 mg PO BEDTIME #60 cap 11/23/19 prednisone See Rx Instructions .ROUTE 01/19/20 .COMPLEX #14 tab oxycodone-acetaminophen [Percocet] 1 tab PO TID PRN #10 tab 02/26/20 valacyclovir 1,000 mg PO Q8H #21 tab 02/26/20 aspirin 81 mg PO DAILY #30 tab 03/17/20 atorvastatin 20 mg PO BEDTIME #30 tab 03/17/20 metoprolol succinate 25 mg PO DAILY #30 tab 03/17/20 chlordiazepoxide HCl 25 mg PO Q8H PRN #24 cap 04/05/20 Allergies Allergy/AdvReac Type Severity Reaction Status Date / Time lisinopril Allergy Severe Swelling Verified 04/05/20 09:46 of Lip/Tongue/Throat citalopram [CITALOPRAM] Allergy Unknown SEIZURES Verified 04/05/20 09:46 hydrocodone [HYDROCODONE] AdvReac Mild N/V Verified 04/05/20 09:46 Review of Systems Review of Systems Narrative: REVIEW OF SYSTEMS: CONSTITUTIONAL: Patient is acutely anxious and agitated. He denies any fever or sweats but has had intermittent chills. NEUROLOGICAL: He denies any head trauma but complains of a headache without numbness tingling paresthesias anesthesia is paresis or paralysis. EENT: He denies any loss of vision scotomata diplopia but has had blurred vision. He has had no epistaxis sinus congestion sore throat or trouble swallowing. CARDIO-PULMONARY: He has had a cough with shortness of breath. His cough is nonproductive of any sputum. He has been dizzy and has felt faint like he is going to pass out. He continues to complain of shortness of breath while he is tachypneic. He specifically denies any chest pain. GASTROINTESTINAL: He has had dry heaves this morning with nausea but no diarrhea. He otherwise denies any abdominal pain. GENITAL URINARY: He has had no urinary symptoms. MUSCULOSKELETAL/ RHEUMATOLOGICAL: He has no back pain more than usual but points and complains of right upper quadrant abdominal pain. DERMATOLOGICAL: He denies any bruising or skin rash. Patient History Medical History Alcohol dependence (Acute) Chronic thoracic spine pain (Acute) Dyspepsia (Acute) History of rib fracture (Acute) History of stroke (Acute) Hx of angioedema (Acute) Hypertension (Acute) Injury of hip, right (Acute) Intermittent lightheadedness (Acute) Zoster (Acute) Surgical History History of eye surgery (Acute) History of Blanche fundoplication (Acute) History of splenectomy (Acute) Status post cervical spinal fusion (Acute) Family History Father Congestive heart failure Lymph edema Mother Perforated sigmoid colon Brother Stroke Sister Hypertension Social History household members: significant other Smoking Status: Current every day smoker Smoking Status: Current every day smoker tobacco type: cigarettes alcohol intake frequency: 3 or more drinks per day Alcohol type: hard liquor Substance Use Type: does not use Exam Narrative Exam Narrative: PHYSICAL EXAM: CONSTITUTIONAL: Awake, Alert, Oriented, anxious, tachypneic complaining of shortness of breath. He is mildly agitated EENT: PERRL, FROM of eyes, no discharge, no nystagmus NOSE:No epistaxis or nasal drainage MOUTH:Oral mucosa is moist and pink, posterior pharynx is without erythema or exudate. NECK: Supple, no obvious JVD, Trachea is midline without stridor, no palpable LN. SPINE: Palpation of the cervical, Thoracic, Lumbar or Sacral spine reveals no gross deformity or tenderness. No CVA tenderness. The patient has a scar over his posterior lower cervical spine secondary to a previous laminectomy. The patient states that he has had 2 discs removed. THORAX: No deformity, retractions, chest wall tenderness. The patient has increased AP diameter of the chest LUNGS: Clear, symmetrical breath sounds without respiratory distress. HEART: The patient is tachycardic without any murmur or rub. Heart tones are normal. ABDOMEN: Abdomen is soft except that the patient is tender in the right upper greater than lower right lower quadrant with mild guarding on palpation. There is no palpable organomegaly. Bowel sounds are present. EXTREMITIES: No edema, deformity, tenderness or cyanosis. SKIN: No rash, bruising, petechiae or purpura. NEURO: Awake, alert, oriented, conversive, cranial nerves II-XII are symmetrical , moves all 4 extremities and is ambulatory. MENTAL HEALTH: Patient appears acutely anxious and agitated.. Initial Vital Signs Initial Vital Signs: Vital Signs Temperature 98.5 F 04/05/20 09:34 Pulse Rate 114 H 04/05/20 09:34 Respiratory Rate 22 04/05/20 09:34 Blood Pressure 157/105 H 04/05/20 09:34 Pulse Oximetry 94 04/05/20 09:34 Course Course Course Narrative: 1206: Additional Information: 1207: The patient's AST is 65 ALT is 56 alk-phos is 90, lipase is 135. The patient's ETOH and urine analysis and urine drug screen remain pending at this time. CT of the patient's chest in abdomen revealed: 1. Nonspecific wall prominence of the terminal ileum and proximal colon may represent enterocolitis. However a chronic inflammatory process cannot be completely excluded and clinical correlation is recommended. 2. Colonic diverticulosis without diverticulitis. 3. No acute cardiopulmonary process is evident. 4. Possible gallbladder sludge is present. 5. Prominent hepatic steatosis. The patient's arterial blood gas revealed that his pH was 7.431, pCO2 is 36.4, PO2 is 76 and oxygen saturation is 96% with the patient complaining of being short of breath which is probably secondary to acute anxiety. 1248: The US attack is here and will perform an ultrasound of his right upper quadrant since he has sludge on his CT scan. The patient was complaining of pain and discomfort in this area. With the morphine and Ativan the patient was resting comfortably. The patient is now awake and acutely anxious. He will be administered 260 mg of phenobarbital IV. He will also be administered a 1 L banana bag over 2 hours. 1437: Ultrasound of the gallbladder confirms that he has gallbladder sludge without cholelithiasis or evidence of acute cholecystitis. The patient has prominent hepatic steatosis. 1500: The patient has essentially been medically cleared. He is mildly tachycardic and a very anxious person with his heart rate running 104. He denies ever having alcohol withdrawal seizures or delirium tremens. He does want help being detoxified. I will obtain a medical social work consult to evaluate the patient for detoxification. 1913 I discussed the patient with the medical radiation dosimetrist Dr. Mccollum. The patient will be discharged home since we do not have a medical office technologist today. The hospitalist medical service will not admit the patient to be detoxified. Orders Ordered: Discontinued Medications Dicyclomine HCl (Bentyl) 20 mg PO NOW ONE Stop: 04/05/20 12:51 Last Admin: 04/05/20 13:11 Dose: 20 mg Documented by: CHRIS Sodium Chloride (Normal Saline 0.9%) 1,000 mls @ 1,000 mls/hr IV BOLUS ONE Stop: 04/05/20 10:29 Last Infusion: 04/05/20 12:10 Dose: 0 mls/hr Documented by: Admin: 04/05/20 09:40 Dose: 1,000 mls/hr Documented by: CHRIS Magnesium Sulfate 2 gm/ Folic Acid 1 mg/ Thiamine HCl 100 mg / Multivitamins 10 ml/ Sodium Chloride 1,015.2 mls @ 500 mls/hr IV NOW ONE Stop: 04/05/20 14:45 Last Infusion: 04/05/20 16:28 Dose: 0 mls/hr Documented by: Admin: 04/05/20 13:11 Dose: 500 mls/hr Documented by: CHRIS Sodium Chloride (Normal Saline 0.9%) 1,000 mls @ 200 mls/hr IV BOLUS ONE Stop: 04/05/20 21:28 Last Infusion: 04/05/20 19:45 Dose: 0 mls/hr Documented by: Admin: 04/05/20 16:38 Dose: 200 mls/hr Documented by: CHRIS Lorazepam (Ativan) 0.5 mg IV NOW ONE Stop: 04/05/20 10:02 Last Admin: 04/05/20 10:13 Dose: 0.5 mg Documented by: CHRIS Lorazepam (Ativan) 1 mg IV NOW ONE Stop: 04/05/20 14:44 Last Admin: 04/05/20 14:48 Dose: 1 mg Documented by: CHRIS Lorazepam (Ativan) 2 mg PO NOW ONE Stop: 04/05/20 15:02 Last Admin: 04/05/20 16:38 Dose: 2 mg Documented by: CHRIS Lorazepam (Ativan) 4 mg PO NOW ONE Stop: 04/05/20 20:07 Last Admin: 04/05/20 20:10 Dose: 4 mg Documented by: CHRIS Morphine Sulfate (Morphine) 4 mg IV NOW ONE Stop: 04/05/20 10:02 Last Admin: 04/05/20 10:14 Dose: 4 mg Documented by: CHRIS Ondansetron HCl (Zofran) 4 mg IV NOW ONE Stop: 04/05/20 10:23 Last Admin: 04/05/20 10:20 Dose: Not Given Documented by: CHRIS Phenobarbital (Phenobarbital) 260 mg IV NOW ONE Stop: 04/05/20 12:45 Last Admin: 04/05/20 13:11 Dose: 260 mg Documented by: CHRIS Vital Signs Vital signs: Vital Signs - 8 hr 04/05/20 12:00 04/05/20 13:00 04/05/20 13:30 Pulse Rate 107 H 103 H 101 H Respiratory Rate 17 25 H 19 Blood Pressure [Right Arm] 144/100 H 158/105 H 146/101 H Pulse Oximetry 95 96 94 04/05/20 14:00 04/05/20 15:00 04/05/20 16:00 Pulse Rate 103 H 102 H 103 H Respiratory Rate 19 20 20 Blood Pressure [Right Arm] 126/97 H 144/94 H 155/100 H Pulse Oximetry 94 94 95 04/05/20 17:01 04/05/20 18:00 04/05/20 19:00 Pulse Rate 109 H 116 H 115 H Respiratory Rate 20 21 23 Blood Pressure [Right Arm] 165/97 H 176/98 H 146/87 H Pulse Oximetry 96 95 MDM - Abdominal Pain Medical Records Attestation: I reviewed the patient's medical records. Lab Data Attestation: I reviewed the patient's lab results. Result diagrams: 04/05/20 09:50 04/05/20 09:50 Labs: Lab Results 04/05/20 04/05/20 04/05/20 Range/Units 09:50 09:50 09:50 WBC 9.9 (4.5-11.0) X10^3/uL RBC 5.39 (4.5-5.9) X10^6/uL Hgb 18.4 H (13.5-17.5) g/dL Hct 51.7 (41-53) % MCV 96.0 (80-100) fL MCH 34.1 H (26-34) PG MCHC 35.5 (30-36) % RDW 15.1 H (11.6-14.8) % Plt Count 184 (150-400) X10^3/uL Neut % (Auto) 74.8 (50-75) % Lymph % (Auto) 15.1 L (25-40) % [place] % (Auto) 9.0 (3-14) % Eos % (Auto) 0.6 L (2-4) % Baso % (Auto) 0.5 (0-2) % Neut # (Auto) 7400 H (1529-7720) /uL Lymph # (Auto) 1500 (0308-4241) /uL [place] # (Auto) 900 (0-900) /uL Eos # (Auto) 100 (0-450) /uL Baso # (Auto) 0 (0-100) /uL PT 10.9 (10.1-12.7) SECONDS INR 0.9 (0.9-1.3) APTT 30 (26.4-36.2) SECONDS ABG pH (7.35-7.45) ABG pCO2 (35-45) mmHg ABG pO2 (80-100) mmHg ABG HCO3 (22-26) mmol/L ABG Total CO2 (21-31) mmol/L ABG O2 Saturation (95-100) % ABG Base Excess (-2-2) mmol/L FiO2 Sodium 137 (137-145) mmol/L Potassium 3.2 L (3.4-5.1) mmol/L Chloride 101 (98-107) mmol/L Carbon Dioxide 24 (22-32) mmol/L BUN 9 (9-20) mg/dL Creatinine 0.82 (0.66-1.25) mg/dL Estimated GFR > 60.0 (>60) mL/min BUN/Creatinine Ratio 11.0 (6-22) Glucose 99 (80-110) mg/dL Calcium 9.0 (8.4-10.2) mg/dL Total Bilirubin 0.6 (0.2-1.3) mg/dL AST 65 H (17-59) IU/L ALT 56 H (<50) IU/L Alkaline Phosphatase 90 (38-126) U/L Total Protein 7.0 (6.3-8.2) g/dL Albumin 4.1 (3.5-5.0) g/dL Globulin 2.9 (1.7-4.1) g/dL Albumin/Globulin Ratio 1.4 (1.0-2.8) Lipase 135 (23-300) U/L Urine Color Urine Appearance Urine pH (4.5-8.0) Ur Specific [place] (1.000-1.035) Urine Protein (Negative) Urine Glucose (UA) (Negative) g/dL Urine Ketones (NEGATIVE) Urine Occult Blood (Negative) Urine Nitrate (Negative) Urine Bilirubin (NEGATIVE) Urine Urobilinogen (0.2) E.U./dL Ur Leukocyte Esterase (NEGATIVE) Urine RBC (0-5/HPF) Urine WBC (0-5/HPF) Urine Bacteria (None) Ur Culture Indicated? Micro UA Comment U Opiates 300ng/mL cut (Negative) Ur Oxycodone Screen (Negative) Urine Methadone Screen (Negative) Ur Barbiturates Screen (Negative) U Tricyclic Antidepress (Negative) Ur Phencyclidine Scrn (Negative) Ur Amphetamines Screen (Negative) U Methamphetamines Scrn (Negative) Ur MDMA Scrn (Ecstasy) (Negative) U Benzodiazepines Scrn (Negative) Urine Cocaine Screen (Negative) U Marijuana (THC) Screen (Negative) Ethyl Alcohol ( - 10) mg/dL 04/05/20 04/05/20 04/05/20 Range/Units 09:50 10:21 13:15 WBC (4.5-11.0) X10^3/uL RBC (4.5-5.9) X10^6/uL Hgb (13.5-17.5) g/dL Hct (41-53) % MCV (80-100) fL MCH (26-34) PG MCHC (30-36) % RDW (11.6-14.8) % Plt Count (150-400) X10^3/uL Neut % (Auto) (50-75) % Lymph % (Auto) (25-40) % [place] % (Auto) (3-14) % Eos % (Auto) (2-4) % Baso % (Auto) (0-2) % Neut # (Auto) (6182-0938) /uL Lymph # (Auto) (2793-3968) /uL [place] # (Auto) (0-900) /uL Eos # (Auto) (0-450) /uL Baso # (Auto) (0-100) /uL PT (10.1-12.7) SECONDS INR (0.9-1.3) APTT (26.4-36.2) SECONDS ABG pH 7.43 (7.35-7.45) ABG pCO2 36.4 (35-45) mmHg ABG pO2 76 L (80-100) mmHg ABG HCO3 24 (22-26) mmol/L ABG Total CO2 25 (21-31) mmol/L ABG O2 Saturation 96 (95-100) % ABG Base Excess 0.0 (-2-2) mmol/L FiO2 21 Sodium (137-145) mmol/L Potassium (3.4-5.1) mmol/L Chloride (98-107) mmol/L Carbon Dioxide (22-32) mmol/L BUN (9-20) mg/dL Creatinine (0.66-1.25) mg/dL Estimated GFR (>60) mL/min BUN/Creatinine Ratio (6-22) Glucose (80-110) mg/dL Calcium (8.4-10.2) mg/dL Total Bilirubin (0.2-1.3) mg/dL AST (17-59) IU/L ALT (<50) IU/L Alkaline Phosphatase (38-126) U/L Total Protein (6.3-8.2) g/dL Albumin (3.5-5.0) g/dL Globulin (1.7-4.1) g/dL Albumin/Globulin Ratio (1.0-2.8) Lipase (23-300) U/L Urine Color Urine Appearance Urine pH (4.5-8.0) Ur Specific [place] (1.000-1.035) Urine Protein (Negative) Urine Glucose (UA) (Negative) g/dL Urine Ketones (NEGATIVE) Urine Occult Blood (Negative) Urine Nitrate (Negative) Urine Bilirubin (NEGATIVE) Urine Urobilinogen (0.2) E.U./dL Ur Leukocyte Esterase (NEGATIVE) Urine RBC (0-5/HPF) Urine WBC (0-5/HPF) Urine Bacteria (None) Ur Culture Indicated? Micro UA Comment U Opiates 300ng/mL cut Positive H (Negative) Ur Oxycodone Screen Negative (Negative) Urine Methadone Screen Negative (Negative) Ur Barbiturates Screen Negative (Negative) U Tricyclic Antidepress Negative (Negative) Ur Phencyclidine Scrn Negative (Negative) Ur Amphetamines Screen Negative (Negative) U Methamphetamines Scrn Negative (Negative) Ur MDMA Scrn (Ecstasy) Negative (Negative) U Benzodiazepines Scrn Negative (Negative) Urine Cocaine Screen Negative (Negative) U Marijuana (THC) Screen Negative (Negative) Ethyl Alcohol 138 H ( - 10) mg/dL 04/05/20 Range/Units 13:15 WBC (4.5-11.0) X10^3/uL RBC (4.5-5.9) X10^6/uL Hgb (13.5-17.5) g/dL Hct (41-53) % MCV (80-100) fL MCH (26-34) PG MCHC (30-36) % RDW (11.6-14.8) % Plt Count (150-400) X10^3/uL Neut % (Auto) (50-75) % Lymph % (Auto) (25-40) % [place] % (Auto) (3-14) % Eos % (Auto) (2-4) % Baso % (Auto) (0-2) % Neut # (Auto) (0735-9098) /uL Lymph # (Auto) (0033-5541) /uL [place] # (Auto) (0-900) /uL Eos # (Auto) (0-450) /uL Baso # (Auto) (0-100) /uL PT (10.1-12.7) SECONDS INR (0.9-1.3) APTT (26.4-36.2) SECONDS ABG pH (7.35-7.45) ABG pCO2 (35-45) mmHg ABG pO2 (80-100) mmHg ABG HCO3 (22-26) mmol/L ABG Total CO2 (21-31) mmol/L ABG O2 Saturation (95-100) % ABG Base Excess (-2-2) mmol/L FiO2 Sodium (137-145) mmol/L Potassium (3.4-5.1) mmol/L Chloride (98-107) mmol/L Carbon Dioxide (22-32) mmol/L BUN (9-20) mg/dL Creatinine (0.66-1.25) mg/dL Estimated GFR (>60) mL/min BUN/Creatinine Ratio (6-22) Glucose (80-110) mg/dL Calcium (8.4-10.2) mg/dL Total Bilirubin (0.2-1.3) mg/dL AST (17-59) IU/L ALT (<50) IU/L Alkaline Phosphatase (38-126) U/L Total Protein (6.3-8.2) g/dL Albumin (3.5-5.0) g/dL Globulin (1.7-4.1) g/dL Albumin/Globulin Ratio (1.0-2.8) Lipase (23-300) U/L Urine Color Yellow Urine Appearance Clear Urine pH 6.5 (4.5-8.0) Ur Specific [place] <=1.005 (1.000-1.035) Urine Protein Negative (Negative) Urine Glucose (UA) Negative (Negative) g/dL Urine Ketones Trace H (NEGATIVE) Urine Occult Blood Trace-intact (Negative) Urine Nitrate Negative (Negative) Urine Bilirubin Negative (NEGATIVE) Urine Urobilinogen 0.2 (0.2) E.U./dL Ur Leukocyte Esterase Negative (NEGATIVE) Urine RBC None seen (0-5/HPF) Urine WBC None seen (0-5/HPF) Urine Bacteria None seen (None) Ur Culture Indicated? Cult not indicated Micro UA Comment Microscopic normal U Opiates 300ng/mL cut (Negative) Ur Oxycodone Screen (Negative) Urine Methadone Screen (Negative) Ur Barbiturates Screen (Negative) U Tricyclic Antidepress (Negative) Ur Phencyclidine Scrn (Negative) Ur Amphetamines Screen (Negative) U Methamphetamines Scrn (Negative) Ur MDMA Scrn (Ecstasy) (Negative) U Benzodiazepines Scrn (Negative) Urine Cocaine Screen (Negative) U Marijuana (THC) Screen (Negative) Ethyl Alcohol ( - 10) mg/dL ECG Data Attestation: I personally reviewed and interpreted this ECG as follows: Interpretation: The patient's EKG obtained on April 05 at 9:36 a.m. reveals a sinus tachycardia with a ventricular rate of 116. Intervals are normal QTC is slightly prolonged at 464 milliseconds. The patient has left axis deviation. The patient has small R waves in leads III and AVF as well as V1. T-waves appear to be inverted in leads III. There are no other acute diagnostic ST segment changes noted. The patient has occasional PVC. There are no ST or T-wave changes to suggest ischemia or an acute infarct at this time: Discharge Plan Departure Patient Disposition: Home Clinical Impression: Anxiety, Alcoholism, Shortness of breath Abdominal pain Qualifiers: Abdominal location: right upper quadrant Qualified Code(s): R10.11 - Right upper quadrant pain Discharge Date/Time: 04/05/20 20:35 Instructions: DI for Gallstones, DI for Alcohol Abuse, DI for Tachycardia, DI for Dyspepsia Activity Restrictions/Additional Instructions: 1. Follow up with the referral services for alcohol withdrawal 2. Follow-up with your primary care physician. 3. Stop drinking alcohol altogether. 4. Take the Librium on the dosing schedule to help you with alcohol withdrawal. 5 return to the emergency department if you develop worsening chest pain shortness of breath or passing out. Prescriptions: New chlordiazepoxide HCl 25 mg capsule 25 mg PO Q8H PRN (Reason: alcohol withdrawal) Qty: 24 RF: 0 No Action epinephrine [EpiPen] 0.3 mg/0.3 mL auto-injector 0.3 mg IM Q15M PRN (Reason: angioedema) Qty: 2 RF: 0 diphenhydramine HCl [Benadryl] 25 mg capsule 25 mg PO BEDTIME Qty: 60 RF: 0 prednisone 10 mg tablet See Rx Instructions .ROUTE .COMPLEX Qty: 14 RF: 0 valacyclovir 1 gram tablet 1,000 mg PO Q8H Qty: 21 RF: 0 oxycodone-acetaminophen [Percocet] 5-325 mg tablet 1 tab PO TID PRN (Reason: pain) Qty: 10 RF: 0 metoprolol succinate 25 mg Tablet Extended Release 24 Hr 25 mg PO DAILY Qty: 30 RF: 0 aspirin 81 mg tablet,delayed release (DR/EC) 81 mg PO DAILY Qty: 30 RF: 0 atorvastatin 20 mg tablet 20 mg PO BEDTIME Qty: 30 RF: 0 hydrochlorothiazide 25 mg tablet 25 mg PO QAM RF: 0 famotidine 20 mg Tablet 20 mg PO BID RF: 0 prednisone 20 mg Tablet 40 mg PO DAILY RF: 0 Referrals: [facility] [Outside] [facility] [Outside] [facility] [Outside] Adán Holman [Primary Care Provider] -
--- NOTE | 2020-04-05 10:01 | DI.CT.S_ITS ---
PROCEDURE: CT CHEST ABD PEL W CON INDICATIONS: persistent SOB, sinus tachycardia, abdominal pain ( RUQ>RLQ) TECHNIQUE: After the administration of oral and intravenous contrast, 5 mm thick sections acquired from the lung apices to the symphysis. 5 mm coronal and sagittal reformats were performed, with additional 7 mm coronal MIP reformats through the lungs. For radiation dose reduction, the following was used: automated exposure control, adjustment of mA and/or kV according to patient size. COMPARISON: [facility], CT, CT ABDOMEN PELVIS W CON, 06/10/2019, 12:38. [facility], CT, CT ABDOMEN PELVIS WITH CONTRAST, 08/22/2017, 22:34. [facility], CT, ABDOMEN/PELVIS WITH CONTRAST, 12/02/2010, 12:07. FINDINGS: Image quality: Diagnostic. CHEST: Lungs and pleura: The lungs are well aerated. There is no focal consolidation, effusion, or pneumothorax. Minimal paraseptal emphysematous changes are present within the lung apices. No lung mass or definite pulmonary nodule is appreciated. Mediastinum: Heart size is normal. No pericardial effusion. No mediastinal or hilar adenopathy by size criteria. Thoracic aorta and central pulmonary arteries are normal in size. Esophagus is normal in caliber. No hiatal hernia. Chest wall and bones: No axillary or supraclavicular adenopathy by size criteria. Thyroid gland is not enlarged for adequately characterized on CT. Postoperative changes of the lower cervical spine are not adequately characterized on this study. Age-appropriate degenerative changes of the thoracic spine are present. ABDOMEN: Solid organs: The liver is profoundly hypodense when compared to the spleen. No definite liver lesion is appreciated. There is no intrahepatic or extrahepatic biliary dilatation. The portal vein is patent. High attenuation fluid within the gallbladder may be present. Calcifications about the spleen versus surgical clips are evident, which may be related to previous trauma of the spleen. There is a somewhat lobular appearance to the spleen. The adrenals and pancreas are within normal limits. Both kidneys are normal in size without hydronephrosis or hydroureter. Peritoneum and bowel: There is a small hiatal hernia. The stomach is otherwise unremarkable. The small bowel loops are not dilated. Mild wall prominence of the terminal ileum and ascending colon is present with possible areas of fatty infiltration. Areas of distal colonic diverticulosis are noted without surrounding inflammation to suggest diverticulitis. There is no free fluid, loculated fluid collection or free air. Nodes and vessels: No retroperitoneal or mesenteric adenopathy by size criteria. Aorta and inferior vena cava are normal in size. There is mild aortic atherosclerosis. Bones: No acute fracture or suspicious osseous lesion is evident. There are moderate degenerative changes of the lumbar spine. PELVIS: Genitourinary: Bladder wall thickness is normal. The prostate is not enlarged. Coarse calcifications within the prostate are present, however. Miscellaneous: No inguinal hernias or adenopathy. No free fluid or loculated fluid collection is appreciated. Bones: No suspicious bony lesions. No acute pelvic fracture is evident. Mild to moderate degenerative changes of the pelvic joints are noted. IMPRESSION: 1. Nonspecific wall prominence of the terminal ileum and proximal colon may represent enterocolitis. However, a chronic inflammatory process cannot be completely excluded and clinical correlation is recommended. 2. Colonic diverticulosis without diverticulitis. 3. No acute cardiopulmonary process is evident. 4. Possible gallbladder sludge. 5. Prominent hepatic steatosis. Dictated by: Doug Beyer M.D. on 04/05/2020 at 9:51 Approved by: Doug Beyer M.D. on 04/05/2020 at 9:57
[2020-04-05 10:07] LABS: Add Manual Diff / Slide Review NO; Basophils Absolute Auto 0 /uL (0-100); Basophils Percent Auto 0.5 % (0-2); Eosinophils Absolute Auto 100 /uL (0-450); Eosinophils Percent Auto 0.6 % (2-4); Hematocrit 51.7 % (41-53); Hemoglobin 18.4 g/dL (13.5-17.5); INR 0.9 (0.9-1.3); Lymphocytes Absolute Auto 1500 /uL (1100-4500); Lymphocytes Percent Auto 15.1 % (25-40); Mean Corpuscular HGB Conc 35.5 % (30-36); Mean Corpuscular Hemoglobin 34.1 PG (26-34); Monocytes Absolute Auto 900 /uL (0-900); Neutrophils Absolute Auto 7400 /uL (1500-7000); Neutrophils Percent Auto 74.8 % (50-75); Platelet Count 184 X10^3/uL (150-400); Prothrombin Time 10.9 SECONDS (10.1-12.7); Red Blood Cell Count 5.39 X10^6/uL (4.5-5.9); Red Cell Distribution Width 15.1 % (11.6-14.8); White Blood Cell Count 9.9 X10^3/uL (4.5-11.0)
[2020-04-05 10:09] LABS: PTT Partial Thromboplastin Tim 30 SECONDS (26.4-36.2)
[2020-04-05 10:11] LABS: Alanine Aminotransferase 56 IU/L (<50); Albumin 4.1 g/dL (3.5-5.0); Albumin Globulin Ratio 1.4 (1.0-2.8); Alkaline Phosphatase 90 U/L (38-126); Aspartate Aminotransferase 65 IU/L (17-59); Bilirubin Total 0.6 mg/dL (0.2-1.3); Blood Urea Nitrogen 9 mg/dL (9-20); Carbon Dioxide 24 mmol/L (22-32); Chloride 101 mmol/L (98-107); Estimated Glomerular Filt Rate > 60.0 mL/min (>60); Globulin 2.9 g/dL (1.7-4.1); Glucose 99 mg/dL (80-110); HEMOLYSIS < 15 (0-50); Lipase 135 U/L (23-300); Potassium 3.2 mmol/L (3.4-5.1); Sodium 137 mmol/L (137-145)
[2020-04-05] MEDS: LORazepam 2 MG/ML INJ 0.5 MG IV (10:13)
[2020-04-05] MEDS: MORPHINE 4 MG/ML INJ IV (10:14)
[2020-04-05] MEDS: ONDANSETRON 4 MG/2 ML INJ (10:22)
[2020-04-05 10:33] LABS: Fractionated Inspired Oxygen 21; HCO3 ABG 24 mmol/L (22-26); Oxygen Saturation ABG 96 % (95-100); PCO2 ABG 36.4 mmHg (35-45); PO2 ABG 76 mmHg (80-100); TCO2 ABG 25 mmol/L (21-31); pH ABG 7.43 (7.35-7.45)
[2020-04-05 12:17] LABS: Ethanol (ETOH) 138 mg/dL
--- NOTE | 2020-04-05 12:46 | DI.US.S_ITS ---
PROCEDURE: US ABDOMEN LIMITED INDICATIONS: possible sludge TECHNIQUE: Real-time focused scanning was performed of the abdomen, with image documentation. COMPARISON: [facility], CT, CT CHEST ABD PEL W CON, 04/05/2020, 10:18. FINDINGS: The liver is profoundly echogenic when compared to the right kidney, which does result in it severely limited evaluation of the liver for deep liver lesions. No large liver lesions are evident. The gallbladder is normal in size and is noted to contain a small amount of layering sludge. No cholelithiasis is appreciated. No evidence of gallbladder wall thickening or pericholecystic fluid is identified. The patient did not exhibit a positive sonographic Judd's sign. No intrahepatic or extrahepatic biliary dilatation is identified. The common bile duct is within normal limits and measures up to 6 mm in diameter. The pancreas was obscured by overlying bowel gas. The right kidney, abdominal aorta, and inferior vena cava or either not imaged or not adequately evaluated on this study. IMPRESSION: 1. Gallbladder sludge without cholelithiasis or evidence of acute cholecystitis. 2. Prominent hepatic steatosis. Dictated by: Doug Beyer M.D. on 04/05/2020 at 12:54 Approved by: Doug Beyer M.D. on 04/05/2020 at 12:55
[2020-04-05] MEDS: DICYCLOMINE 10 MG CAPSULE 20 MG PO (13:11)
[2020-04-05] MEDS: PHENobarbital 65 MG/ML VIAL 260 MG IV (13:11)
[2020-04-05] MEDS: MAGNESIUM SULFATE 2 GM, FOLIC ACID 1 MG, THIAMINE 100 MG, MULTIVITAMIN 10 ML in SODIUM ... IV (13:11)
[2020-04-05 13:30] LABS: UR Morphine/Opiate cutoff 300 Positive (Negative); Ur Creatinine Normal (Normal); Ur Specific Gravity Normal (Normal); Urine Amphetamines Negative (Negative); Urine Barbiturates Negative (Negative); Urine Benzodiazepines Negative (Negative); Urine Cocaine Negative (Negative); Urine MDMA Negative (Negative); Urine Methadone Negative (Negative); Urine Methamphetamines Negative (Negative); Urine Oxycodone Negative (Negative); Urine Phencyclidine Negative (Negative); Urine Tetrahydrocannabinol Negative (Negative); Urine Tricyclic Antidepressant Negative (Negative); Urine pH Normal (Normal)
[2020-04-05] MEDS: LORazepam 2 MG/ML INJ 1 MG IV (14:48)
[2020-04-05 15:48] LABS: Appearance Urine UA CLEAR; Bacteria Urine None Seen; Bilirubin Urine UA NEGATIVE (NEGATIVE); Color Urine UA YELLOW; Glucose Urine UA NEGATIVE (Negative); Ketones Urine UA TRACE (NEGATIVE); Leukocyte Esterase Urine UA NEGATIVE (NEGATIVE); Nitrite Urine UA NEGATIVE (Negative); Occult Blood Urine UA TRACE-INTACT (Negative); Protein Urine UA NEGATIVE (Negative); RBC Urine None Seen (0-5/HPF); Specific Gravity Urine UA <=1.005 (1.000-1.035); Urobilinogen Urine UA 0.2 E.U./dL (0.2); WBC Urine None Seen (0-5/HPF); pH Urine UA 6.5 (4.5-8.0)
[2020-04-05 15:57] LABS: Culture Indicated Urine Cult Not Indicated; Urine Comments Microscopic Normal
[2020-04-05] MEDS: SODIUM CHLORIDE 0.9% 1,000 ML 200 ML IV (16:38)
[2020-04-05] MEDS: LORazepam 0.5 MG TABLET 2 MG PO (16:38)
[2020-04-05] MEDS: LORazepam 0.5 MG TABLET 4 MG PO (20:10)
== END 2020-04-05 20:35 | disposition home or self-care (01) ==
PROVIDERS: Emergency Provider Emergency Medicine; PCP Physician Assistant Medical
DX: R10.11 Right upper quadrant pain (principal); F10.229 Alcohol dependence with intoxication, unspecified; Y90.6 Blood alcohol level of 120-199 mg/100 ml; R06.02 Shortness of breath; R00.0 Tachycardia, unspecified; F41.9 Anxiety disorder, unspecified
CPT/HCPCS: 36415; 36600; 71260; 74177; 76705; 80053; 80305; 80320; 81001; 82805; 83690; 85025; 85610; 85730; 93005; 96361; 96374; 96375; 96376; 99284; 99285; J2060; J2270; J2405; J2560; J3475; Q9967

== ENCOUNTER 2020-04-17 06:57 | Emergency (ER) | payer MEDICARE, MEDICAID, SELFPAY ==
[2018-08-01 09:00] VITALS: PULSE 43; RESP 16; O2SAT 96
[2020-03-15 20:55] VITALS: BMI 30.4
[2020-04-17] VITALS (7 sets, daily range): BP systolic 134–150; BP diastolic 95–98; PULSE 67–84; RESP 15–23; TEMP 37.3; O2SAT 94–98; BMI 32.5
--- NOTE | 2020-04-17 07:34 | ED.ALLEREA ---
HPI - Allergic Reaction General Chief complaint: Allergic Reaction Stated complaint: Tongue swelling Time Seen by Provider: 04/17/20 06:58 Source: patient and EMS Mode of arrival: EMS History of Present Illness HPI narrative: cc: swollen tongue HPI: Patient is a 60-year-old male who has a history of recurrent angioedema. He is currently seeing an human resources department supervisor adult probation officer Dr. Garcia in [facility]. The patient woke up this morning around 5:00 a.m. or 6:00 a.m. with swelling of his left tongue. His tongue normally swells asymmetrically. He denies having any shortness of breath or difficulty in swallowing. He has had no pain just discomfort. He denies any stridor. He does not know what triggers this. The patient also has a history of alcoholism in the past. He states he has had high half of a shot in the last 3 weeks. He does smoke cigarettes. He denies any significant shortness of breath cough wheezing chest pain palpitations or dizziness. He has had no recent fever chills or sweats. He has had no nasal drainage sinus congestion sore throat or dysphagia. He has been a little bit nauseous without vomiting abdominal pain or diarrhea and he has had no urinary symptoms. Patient states that he moved his neck and snapped his neck and has pain at the base of his left skull and paraspinous muscles. This is when he took the shot of whiskey. He states that he is on hypertensive medications denies a history of diabetes mellitus had a stroke years ago denies myocardial infarction COPD congestive heart failure or asthma. Related Data Home Medications Medication Instructions Recorded Confirmed hydrochlorothiazide 25 mg PO QAM 06/10/19 03/15/20 famotidine 20 mg PO BID 01/10/20 03/15/20 prednisone 40 mg PO DAILY 01/10/20 03/15/20 Previous Rx's Medication Instructions Recorded epinephrine [EpiPen] 0.3 mg IM Q15M PRN #2 each 11/14/19 diphenhydramine HCl [Benadryl] 25 mg PO BEDTIME #60 cap 11/23/19 prednisone See Rx Instructions .ROUTE 01/19/20 .COMPLEX #14 tab oxycodone-acetaminophen [Percocet] 1 tab PO TID PRN #10 tab 02/26/20 valacyclovir 1,000 mg PO Q8H #21 tab 02/26/20 aspirin 81 mg PO DAILY #30 tab 03/17/20 atorvastatin 20 mg PO BEDTIME #30 tab 03/17/20 metoprolol succinate 25 mg PO DAILY #30 tab 03/17/20 chlordiazepoxide HCl 25 mg PO Q8H PRN #24 cap 04/05/20 cyclobenzaprine 10 mg PO TID PRN #15 tab 04/17/20 diphenhydramine HCl [Benadryl 25 mg PO Q6H PRN #20 tab 04/17/20 Allergy] naproxen [Naprosyn] 500 mg PO BID PRN #20 tab 04/17/20 prednisone 40 mg PO DAILY #8 tab 04/17/20 Allergies Allergy/AdvReac Type Severity Reaction Status Date / Time lisinopril Allergy Severe Swelling Verified 04/05/20 09:46 of Lip/Tongue/Throat citalopram [CITALOPRAM] Allergy Unknown SEIZURES Verified 04/05/20 09:46 hydrocodone [HYDROCODONE] AdvReac Mild N/V Verified 04/05/20 09:46 Review of Systems Review of Systems Narrative: His review of systems were all negative except for those mentioned in history of present illness. Patient History Medical History (Updated 04/17/20 @ 07:42 by Neftali Cespedes MD) Alcohol dependence (Acute) Chronic thoracic spine pain (Acute) Dyspepsia (Acute) History of rib fracture (Acute) History of stroke (Acute) Hx of angioedema (Acute) Hypertension (Acute) Injury of hip, right (Acute) Intermittent lightheadedness (Acute) Zoster (Acute) Surgical History History of eye surgery (Acute) History of Blanche fundoplication (Acute) History of splenectomy (Acute) Status post cervical spinal fusion (Acute) Family History Father Congestive heart failure Lymph edema Mother Perforated sigmoid colon Brother Stroke Sister Hypertension Social History household members: significant other Smoking Status: Current every day smoker Smoking Status: Current every day smoker tobacco type: cigarettes alcohol intake frequency: 3 or more drinks per day Alcohol type: hard liquor Substance Use Type: does not use Exam Narrative Exam Narrative: PHYSICAL EXAM: CONSTITUTIONAL: Awake, Alert, Oriented, Coherent, Cooperative in NAD. Does not appear toxic or ill. HEAD: AT/NC. EENT: PERRL, FROM of eyes, no discharge, no nystagmus the patient's tongue is mildly swollen and since the patient states that he complained that it is primarily on the left side his right side of the tongue appears more swollen than the left at this time. Posterior pharynx is without erythema or exudate. EARS:No drainage from the ears, Tympanic membranes intact bilaterally, clear EAC NOSE:No epistaxis or nasal drainage MOUTH:Oral mucosa is moist and pink, posterior pharynx is without erythema or exudate. Tongue is swollen as noted above NECK: Supple, no obvious JVD, Trachea is midline without stridor, no palpable LN. SPINE: Palpationof the cervical, Thoracic, Lumbar or Sacral spine reveals no gross deformity . The patient is tender to palpation over the left lateral nuchal ridge and insertion of the paraspinous muscles which is reproducible. This mimics the pain he describes in his neck THORAX: No deformity, retractions, chest wall tenderness. LUNGS: Clear, symmetrical breath sounds without respiratory distress. HEART: Normal heart tones, regular rhythm and rate without murmur. ABDOMEN: Soft, non-tender, normal bowel sounds without guarding, rebound, rigidity or palpable mass. EXTREMITIES: No edema, deformity, tenderness or cyanosis. SKIN: No rash, bruising, petechiae or purpura. NEURO: Awake, alert, oriented, conversive, cranial nerves II-XII are symmetrical , moves all 4 extremities and is ambulatory. MENTAL HEALTH: Does not appear anxious or depressed. Is cooperative. Initial Vital Signs Initial Vital Signs: Vital Signs Pulse Rate 84 04/17/20 07:02 Blood Pressure 134/95 H 04/17/20 07:02 Course Course Course Narrative: 0819: The patient's tongue is less swollen appears much improved and he feels much better the patient will be discharged. Patient will be discharged on prednisone, Benadryl, Naprosyn, and cyclobenzaprine. Orders Ordered: Discontinued Medications Diphenhydramine HCl (Benadryl) 25 mg IV NOW ONE Stop: 04/17/20 07:33 Last Admin: 04/17/20 07:47 Dose: 25 mg Documented by: TEJAL Sodium Chloride (Normal Saline 0.9%) 1,000 mls @ 125 mls/hr IV CONT MIGUEL Last Admin: 04/17/20 07:48 Dose: 125 mls/hr Documented by: TEJAL Famotidine (Pepcid) 20 mg in 50 mls @ 200 mls/hr IV NOW ONE Stop: 04/17/20 07:47 Last Infusion: 04/17/20 08:20 Dose: 0 mls/hr Documented by: Admin: 04/17/20 07:46 Dose: 200 mls/hr Documented by: TEJAL Methylprednisolone (Solu-Medrol 125 Mg Vial) 125 mg IV NOW ONE Stop: 04/17/20 07:33 Last Admin: 04/17/20 07:47 Dose: 125 mg Documented by: TEJAL Vital Signs Vital signs: Vital Signs - 8 hr 04/17/20 07:05 Temperature 99.1 F Pulse Rate 77 Respiratory Rate 15 Blood Pressure 134/95 H Pulse Oximetry 98 MDM - Allergic Reaction Lab Data Result diagrams: 04/17/20 07:35 04/17/20 07:35 Labs: Lab Results 04/17/20 04/17/20 Range/Units 07:35 07:35 WBC 8.2 (4.5-11.0) X10^3/uL RBC 5.00 (4.5-5.9) X10^6/uL Hgb 17.1 (13.5-17.5) g/dL Hct 47.7 (41-53) % MCV 95.5 (80-100) fL MCH 34.3 H (26-34) PG MCHC 35.9 (30-36) % RDW 14.7 (11.6-14.8) % Plt Count 169 (150-400) X10^3/uL Neut % (Auto) 75.1 H (50-75) % Lymph % (Auto) 11.5 L (25-40) % [place] % (Auto) 8.1 (3-14) % Eos % (Auto) 3.9 (2-4) % Baso % (Auto) 1.4 (0-2) % Neut # (Auto) 6200 (7649-3583) /uL Lymph # (Auto) 900 L (9454-3926) /uL [place] # (Auto) 700 (0-900) /uL Eos # (Auto) 300 (0-450) /uL Baso # (Auto) 100 (0-100) /uL Sodium 138 (137-145) mmol/L Potassium 3.6 (3.4-5.1) mmol/L Chloride 106 (98-107) mmol/L Carbon Dioxide 27 (22-32) mmol/L BUN 12 (9-20) mg/dL Creatinine 0.91 (0.66-1.25) mg/dL Estimated GFR > 60.0 (>60) mL/min BUN/Creatinine Ratio 13.2 (6-22) Glucose 107 (80-110) mg/dL Calcium 9.0 (8.4-10.2) mg/dL Discharge Plan Departure Patient Disposition: Home Clinical Impression: Neck pain Angio-edema Qualifiers: Encounter type: subsequent encounter Qualified Code(s): T78.3XXD - Angioneurotic edema, subsequent encounter Discharge Date/Time: 04/17/20 09:16 Instructions: DI for Angioedema, DI for Hives, DI for Muscle Spasm Activity Restrictions/Additional Instructions: 1. Follow-up with your primary care physician and/or Dr. Jose Petty in the next 48-72 hours if not better. 2. Return to the emergency department if you develop progressive worsening swelling of your tongue with difficulty in breathing, hoarse voice severe sore throat chest pain with shortness of breath persistent nausea and vomiting, racing of your heart with dizziness or feeling faint as if to pass out. 3. Continue to take your Benadryl and famotidine 4. You have recurrent angioedema. Take the Benadryl 25 mg every 6 hours and the prednisone as prescribed. 5 for the neck pain take Naprosyn 500 mg twice a day with you meals and cyclobenzaprine 10 mg 3 times a day as needed for muscle spasms.. Prescriptions: New prednisone 20 mg tablet 40 mg PO DAILY Qty: 8 RF: 0 diphenhydramine HCl [Benadryl Allergy] 25 mg tablet 25 mg PO Q6H PRN (Reason: allergy symptoms) Qty: 20 RF: 0 naproxen [Naprosyn] 500 mg tablet 500 mg PO BID PRN (Reason: pain) Qty: 20 RF: 0 cyclobenzaprine 10 mg tablet 10 mg PO TID PRN (Reason: muscle spasm) Qty: 15 RF: 0 No Action epinephrine [EpiPen] 0.3 mg/0.3 mL auto-injector 0.3 mg IM Q15M PRN (Reason: angioedema) Qty: 2 RF: 0 diphenhydramine HCl [Benadryl] 25 mg capsule 25 mg PO BEDTIME Qty: 60 RF: 0 prednisone 10 mg tablet See Rx Instructions .ROUTE .COMPLEX Qty: 14 RF: 0 valacyclovir 1 gram tablet 1,000 mg PO Q8H Qty: 21 RF: 0 oxycodone-acetaminophen [Percocet] 5-325 mg tablet 1 tab PO TID PRN (Reason: pain) Qty: 10 RF: 0 metoprolol succinate 25 mg Tablet Extended Release 24 Hr 25 mg PO DAILY Qty: 30 RF: 0 aspirin 81 mg tablet,delayed release (DR/EC) 81 mg PO DAILY Qty: 30 RF: 0 atorvastatin 20 mg tablet 20 mg PO BEDTIME Qty: 30 RF: 0 chlordiazepoxide HCl 25 mg capsule 25 mg PO Q8H PRN (Reason: alcohol withdrawal) Qty: 24 RF: 0 hydrochlorothiazide 25 mg tablet 25 mg PO QAM RF: 0 famotidine 20 mg Tablet 20 mg PO BID RF: 0 prednisone 20 mg Tablet 40 mg PO DAILY RF: 0 Referrals: Adán Holman [Primary Care Provider] -
[2020-04-17 07:45] LABS: Add Manual Diff / Slide Review NO; Basophils Absolute Auto 100 /uL (0-100); Basophils Percent Auto 1.4 % (0-2); Eosinophils Absolute Auto 300 /uL (0-450); Eosinophils Percent Auto 3.9 % (2-4); Hematocrit 47.7 % (41-53); Hemoglobin 17.1 g/dL (13.5-17.5); Lymphocytes Absolute Auto 900 /uL (1100-4500); Lymphocytes Percent Auto 11.5 % (25-40); Mean Corpuscular HGB Conc 35.9 % (30-36); Mean Corpuscular Hemoglobin 34.3 PG (26-34); Mean Corpuscular Volume 95.5 fL (80-100); Monocytes Absolute Auto 700 /uL (0-900); Monocytes Percent Auto 8.1 % (3-14); Neutrophils Absolute Auto 6200 /uL (1500-7000); Neutrophils Percent Auto 75.1 % (50-75); Platelet Count 169 X10^3/uL (150-400); Red Cell Distribution Width 14.7 % (11.6-14.8); White Blood Cell Count 8.2 X10^3/uL (4.5-11.0)
[2020-04-17] MEDS: FAMOTIDINE 20 MG/50 ML PIGGYBACK 200 MG IV (07:46)
[2020-04-17] MEDS: methylPREDNISolone 125 MG/2 ML VIAL IV (07:47)
[2020-04-17] MEDS: diphenhydrAMINE 50 MG/ML VIAL 25 MG IV (07:47)
[2020-04-17] MEDS: SODIUM CHLORIDE 0.9% 1,000 ML 125 ML IV (07:48)
[2020-04-17 07:55] LABS: BUN Creatinine Ratio 13.2 (6-22); Blood Urea Nitrogen 12 mg/dL (9-20); Carbon Dioxide 27 mmol/L (22-32); Chloride 106 mmol/L (98-107); Estimated Glomerular Filt Rate > 60.0 mL/min (>60); Glucose 107 mg/dL (80-110); HEMOLYSIS < 15 (0-50); Potassium 3.6 mmol/L (3.4-5.1); Sodium 138 mmol/L (137-145)
== END 2020-04-17 09:16 | disposition home or self-care (01) ==
PROVIDERS: Emergency Medicine; Emergency Provider Emergency Medicine; PCP Physician Assistant Medical
DX: T78.3XXA Angioneurotic edema, initial encounter (principal); M54.2 Cervicalgia
CPT/HCPCS: 80048; 85025; 96365; 96375; 99284; J1200; J2930

== ENCOUNTER 2020-06-30 20:17 | Inpatient (IN) | payer MEDICARE, MEDICAID, SELFPAY ==
[2018-08-01 09:00] VITALS: PULSE 43; RESP 16; O2SAT 96
[2020-03-15 20:55] VITALS: BMI 30.4
[2020-06-30 20:26] VITALS: BP 100/57; PULSE 122; RESP 20; TEMP 36.4; O2SAT 98; BMI 31.2
[2020-06-30 20:42] LABS: Add Manual Diff / Slide Review NO; Basophils Absolute Auto 100 /uL (0-100); Basophils Percent Auto 0.7 % (0-2); Eosinophils Absolute Auto 0 /uL (0-450); Eosinophils Percent Auto 0.1 % (2-4); Hemoglobin 14.8 g/dL (13.5-17.5); Lymphocytes Absolute Auto 700 /uL (1100-4500); Lymphocytes Percent Auto 4.1 % (25-40); Mean Corpuscular HGB Conc 32.9 % (30-36); Mean Corpuscular Hemoglobin 34.9 PG (26-34); Mean Corpuscular Volume 106.1 fL (80-100); Monocytes Absolute Auto 1100 /uL (0-900); Monocytes Percent Auto 5.9 % (3-14); Neutrophils Absolute Auto 16500 /uL (1500-7000); Neutrophils Percent Auto 89.2 % (50-75); Platelet Count 158 X10^3/uL (150-400); Red Blood Cell Count 4.25 X10^6/uL (4.5-5.9); Red Cell Distribution Width 16.3 % (11.6-14.8); White Blood Cell Count 18.5 X10^3/uL (4.5-11.0)
[2020-06-30] MEDS: SODIUM CHLORIDE 0.9% 1,000 ML 1000 ML IV (20:46)
[2020-06-30] MEDS: PANTOPRAZOLE 40 MG VIAL IV (20:47)
[2020-06-30 20:50] LABS: INR 1.2 (0.9-1.3); Prothrombin Time 13.4 SECONDS (10.1-12.7)
[2020-06-30 20:53] LABS: PTT Partial Thromboplastin Tim 28 SECONDS (26.4-36.2)
[2020-06-30 20:54] LABS: Alanine Aminotransferase 109 IU/L (<50); Albumin 3.4 g/dL (3.5-5.0); Albumin Globulin Ratio 1.1 (1.0-2.8); Alkaline Phosphatase 189 U/L (38-126); Aspartate Aminotransferase 218 IU/L (17-59); BUN Creatinine Ratio 28.5 (6-22); Bilirubin Total 11.3 mg/dL (0.2-1.3); Blood Urea Nitrogen 43 mg/dL (9-20); Calcium 9.7 mg/dL (8.4-10.2); Carbon Dioxide 25 mmol/L (22-32); Chloride 89 mmol/L (98-107); Estimated Glomerular Filt Rate 47.4 mL/min (>60); Globulin 3.2 g/dL (1.7-4.1); Glucose 138 mg/dL (80-110); HEMOLYSIS 39 (0-50); Lipase 1114 U/L (23-300); Potassium 3.6 mmol/L (3.4-5.1); Sodium 130 mmol/L (137-145); Total Protein 6.6 g/dL (6.3-8.2)
--- NOTE | 2020-06-30 21:12 | ED.GENADULT ---
HPI - General Adult General Chief complaint: Toxicology Problem Stated complaint: Vomiting Time Seen by Provider: 06/30/20 21:05 Source: patient and EMS Mode of arrival: EMS Limitations: no limitations History of Present Illness HPI narrative: Patient is a 60-year-old male who evaluated in the emergency department in the past and is known individual to have problems with alcohol abuse here for evaluation of 3-4 days of worsening abdominal pain and vomiting. Patient states that he is unsure exactly when his symptoms started but it was several days ago. He stated that it caused him to not be able to eat but he was able to drink. Has been drinking alcohol during this time. He stated that he stop drinking alcohol ?today ?he states that when he did not eat his abdominal pain seemed to improve however when he tried to eat something yesterday and today he started vomiting. He states he has vomited multiple times today in the abdominal pain was worsening so so he called EMS to bring him to the emergency department. Related Data Home Medications Medication Instructions Recorded Confirmed hydrochlorothiazide 25 mg PO QAM 06/10/19 03/15/20 famotidine 20 mg PO BID 01/10/20 03/15/20 prednisone 40 mg PO DAILY 01/10/20 03/15/20 Previous Rx's Medication Instructions Recorded epinephrine [EpiPen] 0.3 mg IM Q15M PRN #2 each 11/14/19 diphenhydramine HCl [Benadryl] 25 mg PO BEDTIME #60 cap 11/23/19 prednisone See Rx Instructions .ROUTE 01/19/20 .COMPLEX #14 tab oxycodone-acetaminophen [Percocet] 1 tab PO TID PRN #10 tab 02/26/20 valacyclovir 1,000 mg PO Q8H #21 tab 02/26/20 aspirin 81 mg PO DAILY #30 tab 03/17/20 atorvastatin 20 mg PO BEDTIME #30 tab 03/17/20 metoprolol succinate 25 mg PO DAILY #30 tab 03/17/20 chlordiazepoxide HCl 25 mg PO Q8H PRN #24 cap 04/05/20 cyclobenzaprine 10 mg PO TID PRN #15 tab 04/17/20 diphenhydramine HCl [Benadryl 25 mg PO Q6H PRN #20 tab 04/17/20 Allergy] naproxen [Naprosyn] 500 mg PO BID PRN #20 tab 04/17/20 prednisone 40 mg PO DAILY #8 tab 04/17/20 Allergies Allergy/AdvReac Type Severity Reaction Status Date / Time lisinopril Allergy Severe Swelling Verified 06/30/20 20:26 of Lip/Tongue/Throat citalopram [CITALOPRAM] Allergy Unknown SEIZURES Verified 06/30/20 20:26 hydrocodone [HYDROCODONE] AdvReac Mild N/V Verified 06/30/20 20:26 Review of Systems Constitutional Constitutional: Reports body ache(s), Reports fatigue and Denies fever(s) ENT Ears, Nose, Mouth, and Throat: Denies tongue swelling Cardiovascular Cardiovascular: Denies chest pain and Denies dyspnea Respiratory Respiratory: Denies dyspnea Gastrointestinal Gastrointestinal: Reports abdominal pain, Denies change in bowel habits, Reports nausea and Reports vomiting Genitourinary Genitourinary: Denies dysuria Genitourinary: Denies dysuria Musculoskeletal Musculoskeletal: Denies arthralgias and Denies myalgias Integumentary/Breasts Skin/Breast: Denies rash Neurologic Neurologic: Denies behavioral changes Psychiatric Psychiatric: Denies anxiety and Denies behavioral changes Endocrine Endocrine: Reports fatigue Hematologic/Lymphatic Hematologic/Lymphatic: Denies easy bleeding and Denies easy bruising Allergic/Immunologic Allergic/Immunologic: Denies urticaria and Denies tongue swelling Patient History Medical History Alcohol dependence (Acute) Chronic thoracic spine pain (Acute) Dyspepsia (Acute) History of rib fracture (Acute) History of stroke (Acute) Hx of angioedema (Acute) Hypertension (Acute) Injury of hip, right (Acute) Intermittent lightheadedness (Acute) Zoster (Acute) Surgical History History of eye surgery (Acute) History of Blanche fundoplication (Acute) History of splenectomy (Acute) Status post cervical spinal fusion (Acute) Family History Father Congestive heart failure Lymph edema Mother Perforated sigmoid colon Brother Stroke Sister Hypertension Social History household members: significant other Smoking Status: Current every day smoker alcohol intake: current Smoking Status: Current every day smoker tobacco type: cigarettes alcohol intake frequency: 3 or more drinks per day Alcohol type: hard liquor Substance Use Type: does not use Exam Initial Vital Signs Initial Vital Signs: Vital Signs Temperature 97.6 F 06/30/20 20:26 Pulse Rate 122 H 06/30/20 20:26 Respiratory Rate 20 06/30/20 20:26 Blood Pressure 100/57 L 06/30/20 20:26 Pulse Oximetry 98 06/30/20 20:26 Const General: cooperative, disheveled and ill appearing Limitations: mental status not altered [facility] Head: normal to inspection and normocephalic Eyes Sclera: scleral abnormality bilaterally (Jaundice) Resp Effort & Inspection: normal respiratory effort Auscultation: clear to auscultation bilaterally Cardio Rate: tachycardic Rhythm: regular rhythm GI Inspection: non-distended Palpation: soft and tender (Bilateral upper abdomen) Skin General: jaundice Rashes: no rashes Neuro General: patient alert, patient awake and patient oriented x3 Cognition: normal cognition Speech: speech normal Extrem General: normal to inspection and capillary refill normal Psych Appearance: grossly normal and disheveled Scores GCS Alvin coma scale eye opening: Spontaneous Alvin coma scale verbal response: Orientated [place] coma scale motor response: Obey commands Alvin coma scale total score: 15 Course Orders Ordered: ED Orders 06/30/20 20:29 EKG-12 Lead Stat 06/30/20 20:35 Acetaminophen Stat Complete Blood Count AUTO DIFF Stat Comprehensive Metabolic Panel Stat Ethanol (ETOH) Stat Lactate (Lactic Acid) Stat Lipase Stat Magnesium Stat Partial Thromboplastin Time Stat Phosphorous Stat Prothrombin Time INR Stat Troponin & CK Cardiac Panel Stat 06/30/20 21:13 CT abdomen pelvis w con Stat 06/30/20 21:14 US abdomen limited Stat 06/30/20 21:45 Ammonia (NH3) Stat 07/01/20 00:23 Urine Drug Screen, Rapid Stat 07/01/20 00:30 COVID19 -ED/INPAT/OR/L&D Stat Enoxaparin Sodium (Lovenox) 40 mg SUBCUT DAILY MIGUEL Sodium Chloride (Normal Saline 0.9%) 1,000 mls @ 125 mls/hr IV CONT MIGUEL Last Infusion: 06/30/20 23:50 Dose: 0 mls/hr Documented by: Infusion: 06/30/20 22:49 Dose: 1,000 mls/hr Documented by: Admin: 06/30/20 22:47 Dose: 125 mls/hr Documented by: MELISSA Sodium Chloride (Normal Saline 0.9%) 1,000 mls @ 125 mls/hr IV CONT MIGUEL Piperacillin/Tazobactam/Dextrose (Zosyn) 3.375 gm in 50 mls @ 100 mls/hr IV Q6H MIGUEL Last Admin: 07/01/20 02:57 Dose: 100 mls/hr Documented by: DEANDRE Magnesium Sulfate 2 gm/ Folic Acid 1 mg/ Thiamine HCl 100 mg / Multivitamins 10 ml/ Sodium Chloride 1,015.2 mls @ 125 mls/hr IV NOW ONE Stop: 07/02/20 04:07 Lorazepam (Ativan) 0 mg IV CIWAPRN PRN; Protocol PRN Reason: Alcohol Withdrawal Lorazepam (Ativan) 0 mg PO CIWAPRN PRN; Protocol PRN Reason: Alcohol Withdrawal Morphine Sulfate (Morphine) 4 mg IV Q4HR PRN PRN Reason: Pain, Severe (7-10) Last Admin: 07/01/20 02:39 Dose: 4 mg Documented by: DEANDRE Morphine Sulfate (Morphine) 2 mg IV Q4HR PRN PRN Reason: Pain, Moderate (4-6) Naloxone HCl (Narcan) 0.2 mg IV Q2MIN PRN PRN Reason: Opiate Reversal Ondansetron HCl (Zofran) 4 mg IV Q6HR PRN PRN Reason: Nausea And Vomiting Pantoprazole Sodium (Protonix) 40 mg IV DAILY MIGUEL Discontinued Medications Sodium Chloride (Normal Saline 0.9%) 1,000 mls @ 1,000 mls/hr IV BOLUS ONE Stop: 06/30/20 21:40 Last Infusion: 06/30/20 21:46 Dose: 0 mls/hr Documented by: Admin: 06/30/20 20:46 Dose: 1,000 mls/hr Documented by: JAQUELINE Magnesium Sulfate 2 gm/ Folic Acid 1 mg/ Thiamine HCl 100 mg / Multivitamins 10 ml/ Sodium Chloride 1,015.2 mls @ 125 mls/hr IV NOW ONE Stop: 07/01/20 08:21 Magnesium Sulfate 2 gm/Thiamine HCl 100 mg/Multivitamins 10 ml/ Sodium Chloride 1,015 mls @ 125 mls/hr IV NOW ONE Stop: 07/01/20 08:37 Last Admin: 07/01/20 00:42 Dose: 125 mls/hr Documented by: JAQUELINE Magnesium Sulfate 2 gm/ Folic Acid 1 mg/ Thiamine HCl 100 mg / Multivitamins 10 ml/ Sodium Chloride 1,015.2 mls @ 125 mls/hr IV NOW ONE Stop: 07/01/20 16:37 Morphine Sulfate (Morphine) 4 mg IV NOW ONE Stop: 07/01/20 00:16 Last Admin: 07/01/20 00:22 Dose: 4 mg Documented by: JAQUELINE Ondansetron HCl (Zofran) 4 mg IV NOW ONE Stop: 06/30/20 21:14 Last Admin: 06/30/20 21:23 Dose: 4 mg Documented by: MELISSA Pantoprazole Sodium (Protonix) 40 mg IV NOW ONE Stop: 06/30/20 20:42 Last Admin: 06/30/20 20:47 Dose: 40 mg Documented by: JAQUELINE Vital Signs Vital signs: Vital Signs - 8 hr 06/30/20 20:26 07/01/20 00:15 Temperature 97.6 F Pulse Rate 122 H 111 H Respiratory Rate 20 20 Blood Pressure 100/57 L 115/82 Pulse Oximetry 98 98 Medical Decision Making Lab Data Lab results reviewed: Yes I reviewed the patient's lab results. Result diagrams: 06/30/20 20:35 06/30/20 20:35 Labs: Lab Results 06/30/20 06/30/20 06/30/20 Range/Units 20:35 20:35 20:35 WBC 18.5 H (4.5-11.0) X10^3/uL RBC 4.25 L (4.5-5.9) X10^6/uL Hgb 14.8 (13.5-17.5) g/dL Hct 45.0 (41-53) % MCV 106.1 H (80-100) fL MCH 34.9 H (26-34) PG MCHC 32.9 (30-36) % RDW 16.3 H (11.6-14.8) % Plt Count 158 (150-400) X10^3/uL Neut % (Auto) 89.2 H (50-75) % Lymph % (Auto) 4.1 L (25-40) % [place] % (Auto) 5.9 (3-14) % Eos % (Auto) 0.1 L (2-4) % Baso % (Auto) 0.7 (0-2) % Neut # (Auto) 03740 H (1955-5485) /uL Lymph # (Auto) 700 L (3607-3680) /uL [place] # (Auto) 1100 H (0-900) /uL Eos # (Auto) 0 (0-450) /uL Baso # (Auto) 100 (0-100) /uL PT 13.4 H (10.1-12.7) SECONDS INR 1.2 (0.9-1.3) APTT 28 D (26.4-36.2) SECONDS Sodium 130 L (137-145) mmol/L Potassium 3.6 (3.4-5.1) mmol/L Chloride 89 L (98-107) mmol/L Carbon Dioxide 25 (22-32) mmol/L BUN 43 H (9-20) mg/dL Creatinine 1.51 H (0.66-1.25) mg/dL Estimated GFR 47.4 L (>60) mL/min BUN/Creatinine Ratio 28.5 H (6-22) Glucose 138 H (80-110) mg/dL Lactate (0.7-2.1) mmol/L Calcium 9.7 (8.4-10.2) mg/dL Phosphorus (2.3-3.7) mg/dL Magnesium (1.6-2.3) mg/dL Total Bilirubin 11.3 H (0.2-1.3) mg/dL AST 218 H (17-59) IU/L ALT 109 H (<50) IU/L Alkaline Phosphatase 189 H (38-126) U/L Ammonia (9-30) umol/L Total Creatine Kinase (55-170) U/L CK-MB (CK-2) CK-MB (CK-2) Rel Index Troponin I (0.01-0.034) ng/mL Total Protein 6.6 (6.3-8.2) g/dL Albumin 3.4 L (3.5-5.0) g/dL Globulin 3.2 (1.7-4.1) g/dL Albumin/Globulin Ratio 1.1 (1.0-2.8) Lipase 1114 H (23-300) U/L Urine Color Urine Appearance Urine pH (4.5-8.0) Ur Specific [place] (1.000-1.035) Urine Protein (Negative) Urine Glucose (UA) (Negative) g/dL Urine Ketones (NEGATIVE) Urine Occult Blood (Negative) Urine Nitrate (Negative) Urine Bilirubin (NEGATIVE) Ur Bilirubin Confirm (Negative) Urine Urobilinogen (0.2) E.U./dL Ur Leukocyte Esterase (NEGATIVE) Urine RBC (0-5/HPF) Urine WBC (0-5/HPF) Urine Bacteria (None) Ur Culture Indicated? U Opiates 300ng/mL cut (Negative) Ur Oxycodone Screen (Negative) Urine Methadone Screen (Negative) Acetaminophen (10-30) ug/mL Ur Barbiturates Screen (Negative) U Tricyclic Antidepress (Negative) Ur Phencyclidine Scrn (Negative) Ur Amphetamines Screen (Negative) U Methamphetamines Scrn (Negative) Ur MDMA Scrn (Ecstasy) (Negative) U Benzodiazepines Scrn (Negative) Urine Cocaine Screen (Negative) U Marijuana (THC) Screen (Negative) Ethyl Alcohol ( - 10) mg/dL 06/30/20 06/30/20 06/30/20 Range/Units 20:35 20:35 20:35 WBC (4.5-11.0) X10^3/uL RBC (4.5-5.9) X10^6/uL Hgb (13.5-17.5) g/dL Hct (41-53) % MCV (80-100) fL MCH (26-34) PG MCHC (30-36) % RDW (11.6-14.8) % Plt Count (150-400) X10^3/uL Neut % (Auto) (50-75) % Lymph % (Auto) (25-40) % [place] % (Auto) (3-14) % Eos % (Auto) (2-4) % Baso % (Auto) (0-2) % Neut # (Auto) (5908-7835) /uL Lymph # (Auto) (9177-8874) /uL [place] # (Auto) (0-900) /uL Eos # (Auto) (0-450) /uL Baso # (Auto) (0-100) /uL PT (10.1-12.7) SECONDS INR (0.9-1.3) APTT (26.4-36.2) SECONDS Sodium (137-145) mmol/L Potassium (3.4-5.1) mmol/L Chloride (98-107) mmol/L Carbon Dioxide (22-32) mmol/L BUN (9-20) mg/dL Creatinine (0.66-1.25) mg/dL Estimated GFR (>60) mL/min BUN/Creatinine Ratio (6-22) Glucose (80-110) mg/dL Lactate 5.3 H* (0.7-2.1) mmol/L Calcium (8.4-10.2) mg/dL Phosphorus 3.0 (2.3-3.7) mg/dL Magnesium 2.3 Cancelled (1.6-2.3) mg/dL Total Bilirubin (0.2-1.3) mg/dL AST (17-59) IU/L ALT (<50) IU/L Alkaline Phosphatase (38-126) U/L Ammonia (9-30) umol/L Total Creatine Kinase 67 (55-170) U/L CK-MB (CK-2) TNP CK-MB (CK-2) Rel Index TNP Troponin I 0.014 (0.01-0.034) ng/mL Total Protein (6.3-8.2) g/dL Albumin (3.5-5.0) g/dL Globulin (1.7-4.1) g/dL Albumin/Globulin Ratio (1.0-2.8) Lipase (23-300) U/L Urine Color Urine Appearance Urine pH (4.5-8.0) Ur Specific [place] (1.000-1.035) Urine Protein (Negative) Urine Glucose (UA) (Negative) g/dL Urine Ketones (NEGATIVE) Urine Occult Blood (Negative) Urine Nitrate (Negative) Urine Bilirubin (NEGATIVE) Ur Bilirubin Confirm (Negative) Urine Urobilinogen (0.2) E.U./dL Ur Leukocyte Esterase (NEGATIVE) Urine RBC (0-5/HPF) Urine WBC (0-5/HPF) Urine Bacteria (None) Ur Culture Indicated? U Opiates 300ng/mL cut (Negative) Ur Oxycodone Screen (Negative) Urine Methadone Screen (Negative) Acetaminophen < 10 L (10-30) ug/mL Ur Barbiturates Screen (Negative) U Tricyclic Antidepress (Negative) Ur Phencyclidine Scrn (Negative) Ur Amphetamines Screen (Negative) U Methamphetamines Scrn (Negative) Ur MDMA Scrn (Ecstasy) (Negative) U Benzodiazepines Scrn (Negative) Urine Cocaine Screen (Negative) U Marijuana (THC) Screen (Negative) Ethyl Alcohol < 10 ( - 10) mg/dL 06/30/20 06/30/20 07/01/20 Range/Units 21:45 23:41 00:23 WBC (4.5-11.0) X10^3/uL RBC (4.5-5.9) X10^6/uL Hgb (13.5-17.5) g/dL Hct (41-53) % MCV (80-100) fL MCH (26-34) PG MCHC (30-36) % RDW (11.6-14.8) % Plt Count (150-400) X10^3/uL Neut % (Auto) (50-75) % Lymph % (Auto) (25-40) % [place] % (Auto) (3-14) % Eos % (Auto) (2-4) % Baso % (Auto) (0-2) % Neut # (Auto) (8982-0170) /uL Lymph # (Auto) (3221-8381) /uL [place] # (Auto) (0-900) /uL Eos # (Auto) (0-450) /uL Baso # (Auto) (0-100) /uL PT (10.1-12.7) SECONDS INR (0.9-1.3) APTT (26.4-36.2) SECONDS Sodium (137-145) mmol/L Potassium (3.4-5.1) mmol/L Chloride (98-107) mmol/L Carbon Dioxide (22-32) mmol/L BUN (9-20) mg/dL Creatinine (0.66-1.25) mg/dL Estimated GFR (>60) mL/min BUN/Creatinine Ratio (6-22) Glucose (80-110) mg/dL Lactate 2.5 H (0.7-2.1) mmol/L Calcium (8.4-10.2) mg/dL Phosphorus (2.3-3.7) mg/dL Magnesium (1.6-2.3) mg/dL Total Bilirubin (0.2-1.3) mg/dL AST (17-59) IU/L ALT (<50) IU/L Alkaline Phosphatase (38-126) U/L Ammonia 11 (9-30) umol/L Total Creatine Kinase (55-170) U/L CK-MB (CK-2) CK-MB (CK-2) Rel Index Troponin I (0.01-0.034) ng/mL Total Protein (6.3-8.2) g/dL Albumin (3.5-5.0) g/dL Globulin (1.7-4.1) g/dL Albumin/Globulin Ratio (1.0-2.8) Lipase (23-300) U/L Urine Color Urine Appearance Urine pH (4.5-8.0) Ur Specific [place] (1.000-1.035) Urine Protein (Negative) Urine Glucose (UA) (Negative) g/dL Urine Ketones (NEGATIVE) Urine Occult Blood (Negative) Urine Nitrate (Negative) Urine Bilirubin (NEGATIVE) Ur Bilirubin Confirm (Negative) Urine Urobilinogen (0.2) E.U./dL Ur Leukocyte Esterase (NEGATIVE) Urine RBC (0-5/HPF) Urine WBC (0-5/HPF) Urine Bacteria (None) Ur Culture Indicated? U Opiates 300ng/mL cut Negative (Negative) Ur Oxycodone Screen Negative (Negative) Urine Methadone Screen Negative (Negative) Acetaminophen (10-30) ug/mL Ur Barbiturates Screen Negative (Negative) U Tricyclic Antidepress Negative (Negative) Ur Phencyclidine Scrn Negative (Negative) Ur Amphetamines Screen Negative (Negative) U Methamphetamines Scrn Negative (Negative) Ur MDMA Scrn (Ecstasy) Negative (Negative) U Benzodiazepines Scrn Negative (Negative) Urine Cocaine Screen Negative (Negative) U Marijuana (THC) Screen Negative (Negative) Ethyl Alcohol ( - 10) mg/dL 07/01/20 Range/Units 00:23 WBC (4.5-11.0) X10^3/uL RBC (4.5-5.9) X10^6/uL Hgb (13.5-17.5) g/dL Hct (41-53) % MCV (80-100) fL MCH (26-34) PG MCHC (30-36) % RDW (11.6-14.8) % Plt Count (150-400) X10^3/uL Neut % (Auto) (50-75) % Lymph % (Auto) (25-40) % [place] % (Auto) (3-14) % Eos % (Auto) (2-4) % Baso % (Auto) (0-2) % Neut # (Auto) (6896-9863) /uL Lymph # (Auto) (8401-8434) /uL [place] # (Auto) (0-900) /uL Eos # (Auto) (0-450) /uL Baso # (Auto) (0-100) /uL PT (10.1-12.7) SECONDS INR (0.9-1.3) APTT (26.4-36.2) SECONDS Sodium (137-145) mmol/L Potassium (3.4-5.1) mmol/L Chloride (98-107) mmol/L Carbon Dioxide (22-32) mmol/L BUN (9-20) mg/dL Creatinine (0.66-1.25) mg/dL Estimated GFR (>60) mL/min BUN/Creatinine Ratio (6-22) Glucose (80-110) mg/dL Lactate (0.7-2.1) mmol/L Calcium (8.4-10.2) mg/dL Phosphorus (2.3-3.7) mg/dL Magnesium (1.6-2.3) mg/dL Total Bilirubin (0.2-1.3) mg/dL AST (17-59) IU/L ALT (<50) IU/L Alkaline Phosphatase (38-126) U/L Ammonia (9-30) umol/L Total Creatine Kinase (55-170) U/L CK-MB (CK-2) CK-MB (CK-2) Rel Index Troponin I (0.01-0.034) ng/mL Total Protein (6.3-8.2) g/dL Albumin (3.5-5.0) g/dL Globulin (1.7-4.1) g/dL Albumin/Globulin Ratio (1.0-2.8) Lipase (23-300) U/L Urine Color [place] Urine Appearance Clear Urine pH 6 (4.5-8.0) Ur Specific [place] 1.005 (1.000-1.035) Urine Protein 1+ H (Negative) Urine Glucose (UA) Negative (Negative) g/dL Urine Ketones Negative (NEGATIVE) Urine Occult Blood Negative (Negative) Urine Nitrate Negative (Negative) Urine Bilirubin 1+ H (NEGATIVE) Ur Bilirubin Confirm Positive H (Negative) Urine Urobilinogen 0.2 (0.2) E.U./dL Ur Leukocyte Esterase Negative (NEGATIVE) Urine RBC None seen (0-5/HPF) Urine WBC 0-1/hpf (0-5/HPF) Urine Bacteria None seen (None) Ur Culture Indicated? Cult not indicated U Opiates 300ng/mL cut (Negative) Ur Oxycodone Screen (Negative) Urine Methadone Screen (Negative) Acetaminophen (10-30) ug/mL Ur Barbiturates Screen (Negative) U Tricyclic Antidepress (Negative) Ur Phencyclidine Scrn (Negative) Ur Amphetamines Screen (Negative) U Methamphetamines Scrn (Negative) Ur MDMA Scrn (Ecstasy) (Negative) U Benzodiazepines Scrn (Negative) Urine Cocaine Screen (Negative) U Marijuana (THC) Screen (Negative) Ethyl Alcohol ( - 10) mg/dL Imaging Data CT scan - abdomen/pelvis: Radiologist's Impression: [place] [address] CT Scan Report Signed Patient: Elroy Larkin RMR#: [id number] : 1960Acct:[id number] Age/Sex: 60 / MDate of Service: 06/30/20 Loc: ED Accession Number: [id number] Procedure: CT abdomen pelvis w con Ordering Provider: Elroy yBrd D.O. PROCEDURE: CT ABDOMEN PELVIS W CON INDICATIONS: Abdominal pain and distension TECHNIQUE: After the administration of intravenous contrast, 5 mm thick sections acquired from the diaphragm to the symphysis. 5 mm coronal and sagittal reformats were acquired. For radiation dose reduction, the following was used: automated exposure control, adjustment of mA and/or kV according to patient size. COMPARISON: [facility], CT, CT ABDOMEN PELVIS WITH CONTRAST, 08/22/2017, 22:34. [facility], US, US ABDOMEN LIMITED, 04/05/2020, 12:56. [facility], CT, CT CHEST ABD PEL W CON, 04/05/2020, 10:18. [facility], CT, CT ABDOMEN PELVIS W CON, 06/10/2019, 12:38. FINDINGS: Image quality: Excellent. ABDOMEN: Lung bases: Lung bases are clear. Heart size is normal. Solid organs: There is stranding in pancreatic tail and a small amount of peripancreatic fluid consistent with acute pancreatitis. A 3 cm area of decreased enhancement in pancreatic tail could represent early pancreatic necrosis. No pancreatic pseudocyst. Severe hepatic steatosis. Liver is normal in size and enhancement. Gallbladder demonstrates higher attenuation, probably secondary to sludge. Biliary system is non dilated. Pancreas enhances normally. Spleen is normal in size and enhancement. A couple of small splenules are noted in the splenic hilum. No adrenal nodules. Kidneys demonstrate normal size and enhancement, without hydronephrosis. Peritoneum and bowel: Mild colonic wall thickening is seen in the transverse colon and splenic flexure suggesting mild colitis. There are numerous colonic diverticula. No CT findings to suggest acute diverticulitis. Bowel loops demonstrate normal wall thickness and caliber. No free fluid or air. Nodes and vessels: No retroperitoneal or mesenteric adenopathy by size criteria. Aorta and inferior vena cava are normal in size. Miscellaneous: No ventral hernias. PELVIS: Genitourinary: Bladder wall appears mildly thickened probably due to inadequate distended. Miscellaneous: No inguinal hernias or adenopathy. Bones: No suspicious bony lesions. No vertebral body compression fractures. IMPRESSION: 1. Acute pancreatitis. There is decreased enhancement in the tail of the pancreas, which could indicate pancreatic necrosis. 2. Mild colonic wall thickening involving the transverse colon and splenic fracture suggesting mild colitis. 3. Diverticulosis without acute diverticulitis. 4. Severe hepatic steatosis. 5. Gallbladder has higher attenuation than normally seen, which could be related to gallbladder sludge. No pericholecystic fluid collections. 6. Bladder wall appears mildly thickened probably due to inadequate distended. If clinically indicated, urinalysis could be obtained to rule out cystitis. Dictated by: Sera Kennedy M.D. on 06/30/2020 at 22:00 Approved by: Sera Kennedy M.D. on 06/30/2020 at 22:14 US - abdomen: Radiologist's Impression: Limited study, gallbladder sludge with no definite stone. No biliary ductal dilation. A padded megaly and hepatic steatosis. ECG Data Attestation: I personally reviewed and interpreted this ECG as follows: Prior ECG tracings: not available for review Interpretation: Sinus tachycardia Ventricular rate 119 Normal axis Normal QRS Normal QTC No ST T wave changes MDM Narrative Medical decision making narrative: Patient has a history and physical exam is consistent with pancreatitis. Elevated lipase. CT scan findings consistent with pancreatitis. Most likely related to alcohol use. His right upper quadrant ultrasound does not show definitive gallbladder pathology as potential cause. Has elevated LFTs and also an elevated bilirubin which explains his jaundice. I suspect home with his issues are related to his alcohol use. Was given fluids. Discussed the case with DEE Bermudez the night hospitalist who will admit for further evaluation and treatment. Discussed these findings with the patient. He expressed understanding agreement. Discharge Plan Departure Patient Disposition: Home Clinical Impression: Hyperbilirubinemia, Acute kidney injury, Abdominal pain Acute pancreatitis Qualifiers: Pancreatitis type: alcohol induced Acute pancreatitis complication: unspecified Qualified Code(s): K85.20 - Alcohol induced acute pancreatitis without necrosis or infection Discharge Date/Time: 07/01/20 01:35 Admit Date/Time: 07/01/20 00:25
--- NOTE | 2020-06-30 21:14 | DI.US.S_ITS ---
PROCEDURE: US ABDOMEN LIMITED INDICATIONS: ELEVATED LFTS, BILIRUBIN TECHNIQUE: Real-time focused scanning was performed of the abdomen, with image documentation. COMPARISON: [facility], CT, CT ABDOMEN PELVIS W CON, 06/30/2020, 21:32. [facility], US, US ABDOMEN LIMITED, 04/05/2020, 12:56. [facility], US, US ABDOMEN LIMITED, 01/11/2020, 15:40. FINDINGS: The liver is enlarged and markedly fatty infiltrated as was seen also on CT scanning same day. The gallbladder is relatively poorly seen but appears free of stone or inflammation. No biliary distention is found, common duct measures 5.5 mm. Pancreas could not be seen. IMPRESSION: Hepatomegaly and market fatty infiltration throughout as was seen during CT scanning same day. No gallbladder abnormality found. No bile duct distention seen. Dictated by: Aidan Mccann M.D. on 07/01/2020 at 8:36 Approved by: Aidan Mccann M.D. on 07/01/2020 at 8:39
[2020-06-30] MEDS: ONDANSETRON 4 MG/2 ML INJ IV (21:23)
[2020-06-30 21:52] LABS: Creatine Kinase 67 U/L (55-170); Magnesium 2.3 mg/dL (1.6-2.3)
[2020-06-30 21:59] LABS: Lactate (Lactic Acid) 5.3 mmol/L (0.7-2.1)
[2020-06-30 22:04] LABS: Troponin I 0.014 ng/mL (0.01-0.034)
[2020-06-30 22:05] LABS: Ammonia (NH3) 11 umol/L (9-30)
[2020-06-30 22:06] LABS: Acetaminophen < 10 ug/mL (10-30); Ethanol (ETOH) < 10 mg/dL
[2020-06-30] MEDS: SODIUM CHLORIDE 0.9% 1,000 ML 125 ML IV (22:47)
[2020-06-30 23:41] LABS: Reflexed Lactate in 2 Hours Y
[2020-06-30 23:58] LABS: Lactate 2HR (Lactic Acid Rflx) 2.5 mmol/L (0.7-2.1)
[2020-07-01] VITALS (10 sets, daily range): BP systolic 111–126; BP diastolic 72–92; PULSE 105–114; RESP 13–21; TEMP 36–37.1; O2SAT 94–100; BMI 31.2
[2020-07-01] MEDS: MORPHINE 4 MG/ML INJ IV ×3 (00:22→08:22)
--- NOTE | 2020-07-01 00:40 | P.HP_ITS ---
History of Present Illness History of Present Illness Date Patient Seen: 07/01/20 Time Patient Seen: 01:41 Chief complaint: Vomiting Narrative: Mr. Elroy Larkin is a 59 year old male with history significant for hypertension, prior stroke, dyspepsia and previous angioedema reaction with unknown trigger and alcohol dependence who presents to the ER with 3-4 days of abdominal pain with nausea vomiting. Patient states he has not been able to eat for several days but has been able to drink alcohol. He states that he stopped drinking this morning and began shaking and therefore took a ?sip? of whiskey at 11:00 a.m.. The patient states on a regular basis he consumes with whiskey 4 hours. Complains of some lightheadedness and dizziness but no visual changes. He reports no sore throat but dry mouth. He knows of no COVID-19 exposure. He denies complaints of chest pain or palpitations, shortness of breath cough or wheezing. States his abdomen is more distended than usual and has had multiple rounds of bilious emesis and denies hematemesis. He reports having regular bowel movements that him from brown to black. He denies complaints difficulty urinating urgency or frequency. Upon arrival to the ER the patient has temperature 97.6?, heart rate 122, blood pressure 100/57, respirations of 20 saturating 98% on room air. He has an initial report of pain at 8/10. A CT of the abdomen and pelvis is obtained finding clear lung bases with normal heart, acute pancreatitis with decreased enhancement of the tail of the pancreas which may represent necrosis, mild colonic wall thickening of the transverse colon and splenic fracture consistent with mild colitis, diverticulosis without diverticulitis and severe hepatic steatosis. Right upper quadrant ultrasound finds sludge in the gallbladder with negative Judd sign, no dilation of the common bile duct. On laboratory analysis the patient has an elevated white count 18.5, hemoglobin 14.8 and hematocrit of 45 with platelets of 158. He has a PT of 13.4, INR 1.2 and a PTT of 28. He is hyponatremic at 130 otherwise electrolytes are within normal range he has a BUN of 43 and creatinine of 1.51. He has a total bilirubin of of 11.3, AST of 218, ALT 109 and alkaline phosphatase of 198. His ammonia level is 11 and he has elevated lipase at 1114. He has lactic acid initially at 5.3 in following fluid bolus it is down to 2.5. He has a total CK of 67 and a troponin at 0.014. Urinary tox screen is negative. COVID-19 is negative. While in the ER the patient received 1 L of normal saline followed by a banana bag at 125 cc/hour, Zofran and Protonix. The patient is admitted to the hospitalist service for acute alcoholic pancreatitis, protracted nausea vomiting with acute kidney injury. Patient History Medical History Alcohol dependence (Acute) Chronic thoracic spine pain (Acute) Dyspepsia (Acute) History of rib fracture (Acute) History of stroke (Acute) Hx of angioedema (Acute) Hypertension (Acute) Injury of hip, right (Acute) Intermittent lightheadedness (Acute) Zoster (Acute) Surgical History History of eye surgery (Acute) History of Blanche fundoplication (Acute) History of splenectomy (Acute) Status post cervical spinal fusion (Acute) Family & Social History Family History Father Congestive heart failure Lymph edema Mother Perforated sigmoid colon Brother Stroke Sister Hypertension Social History: household members significant other Safety & Behavioral: Feels Safe in Current Yes Environment Been Physically Hurt or No Threatened By a Person Tobacco & Substance use: Tobacco type cigarettes Smoking Status Current every day smoker alcohol intake frequency 3 or more drinks per day Substance Use Type does not use Meds Home Medications and Allergies Home Medications Medication Instructions Recorded Confirmed Type hydrochlorothiazide 25 mg PO QAM 06/10/19 03/15/20 History epinephrine [EpiPen] 0.3 mg IM Q15M PRN #2 each 11/14/19 03/15/20 Rx diphenhydramine HCl [Benadryl] 25 mg PO BEDTIME #60 cap 11/23/19 03/15/20 Rx famotidine 20 mg PO BID 01/10/20 03/15/20 History prednisone 40 mg PO DAILY 01/10/20 03/15/20 History prednisone See Rx Instructions .ROUTE 01/19/20 03/15/20 Rx .COMPLEX #14 tab oxycodone-acetaminophen [Percocet] 1 tab PO TID PRN #10 tab 02/26/20 03/15/20 Rx valacyclovir 1,000 mg PO Q8H #21 tab 02/26/20 03/15/20 Rx aspirin 81 mg PO DAILY #30 tab 03/17/20 Rx atorvastatin 20 mg PO BEDTIME #30 tab 03/17/20 Rx metoprolol succinate 25 mg PO DAILY #30 tab 03/17/20 Rx chlordiazepoxide HCl 25 mg PO Q8H PRN #24 cap 04/05/20 Rx cyclobenzaprine 10 mg PO TID PRN #15 tab 04/17/20 Rx diphenhydramine HCl [Benadryl 25 mg PO Q6H PRN #20 tab 04/17/20 Rx Allergy] naproxen [Naprosyn] 500 mg PO BID PRN #20 tab 04/17/20 Rx prednisone 40 mg PO DAILY #8 tab 04/17/20 Rx Allergies Allergy/AdvReac Type Severity Reaction Status Date / Time lisinopril Allergy Severe Swelling Verified 06/30/20 20:26 of Lip/Tongue/Throat citalopram [CITALOPRAM] Allergy Unknown SEIZURES Verified 06/30/20 20:26 hydrocodone [HYDROCODONE] AdvReac Mild N/V Verified 06/30/20 20:26 Review of Systems Review of Systems ROS: Yes All systems reviewed with the patient and are negative except as otherwise documented Exam Vital Signs (past 8 hours): - 06/30/20 20:26 07/01/20 00:15 Temperature 97.6 F Pulse Rate 122 H 111 H Respiratory Rate 20 20 Blood Pressure 100/57 L 115/82 Pulse Oximetry 98 98 Oxygen Delivery Method Room Air Narrative Exam Narrative: GENERAL APPEARANCE: well developed, obese male who is unkempt and disheveled and ill-appearing. HEENT: Normocephalic, PERRLA, jaundice sclera, EOMs intact without nystagmus, no sinus tenderness to percussion, no rhinorrhea, mucous membranes are moist and pink with jaundice hue without lesions or exudate. NECK/THYROID: neck supple, no JVD, no carotid bruit, no thyromegaly, trachea midline. LYMPH NODES: no cervical or supraclavicular lymphadenopathy. SKIN: [place]/jaundice, warm and dry, no visible lesions, rashes, ulcerations or petechiae. HEART: regular rate and rhythm, S1-S2, no murmur, no rubs or gallops, brisk capillary refill, trace to 1+ peripheral edema. LUNGS: Clear upper lobes with bibasilar crackles, without coarseness or wheezing, no cough present. CHEST: Symmetrical movement, no accessory muscle use, good tidal volume. ABDOMEN: Soft, distended, tympanitic to percussion, generalized abdominal tenderness, no fluid wave appreciated, no guarding or peritoneal signs, no organomegaly, no flank or suprapubic tenderness, active bowel tones. BACK: Normal curvature, nontender to palpation, no CVA tenderness on percu ssion. EXTREMITIES: moves all extremities, strength is 5/5 and symmetrical, no deformities or joint effusions, unsteady gait. NEUROLOGIC: AAO x4, cranial nerves II-XII grossly intact, sensation intact to light touch, hearing grossly normal to speech. PSYCH: Good eye contact, interactive and cooperative, appropriate with stable behavior. Objective Labs Result Diagrams: 06/30/20 20:35 06/30/20 20:35 Labs: Laboratory Results - last 24 hr 06/30/20 06/30/20 06/30/20 20:35 20:35 20:35 WBC 18.5 H RBC 4.25 L Hgb 14.8 Hct 45.0 MCV 106.1 H MCH 34.9 H MCHC 32.9 RDW 16.3 H Plt Count 158 Neut % (Auto) 89.2 H Lymph % (Auto) 4.1 L Vernon % (Auto) 5.9 Eos % (Auto) 0.1 L Baso % (Auto) 0.7 Neut # (Auto) 56370 H Lymph # (Auto) 700 L Vernon # (Auto) 1100 H Eos # (Auto) 0 Baso # (Auto) 100 PT 13.4 H INR 1.2 APTT 28 D Sodium 130 L Potassium 3.6 Chloride 89 L Carbon Dioxide 25 BUN 43 H Creatinine 1.51 H Estimated GFR 47.4 L BUN/Creatinine Ratio 28.5 H Glucose 138 H Lactate Calcium 9.7 Phosphorus Magnesium Total Bilirubin 11.3 H AST 218 H ALT 109 H Alkaline Phosphatase 189 H Ammonia Total Creatine Kinase CK-MB (CK-2) CK-MB (CK-2) Rel Index Troponin I Total Protein 6.6 Albumin 3.4 L Globulin 3.2 Albumin/Globulin Ratio 1.1 Lipase 1114 H Acetaminophen Ethyl Alcohol 09/06/30/20 06/30/20 20:35 20:35 21:45 WBC RBC Hgb Hct MCV MCH MCHC RDW Plt Count Neut % (Auto) Lymph % (Auto) Vernon % (Auto) Eos % (Auto) Baso % (Auto) Neut # (Auto) Lymph # (Auto) Vernon # (Auto) Eos # (Auto) Baso # (Auto) PT INR APTT Sodium Potassium Chloride Carbon Dioxide BUN Creatinine Estimated GFR BUN/Creatinine Ratio Glucose Lactate 5.3 H* Calcium Phosphorus 3.0 Magnesium 2.3 Total Bilirubin AST ALT Alkaline Phosphatase Ammonia 11 Total Creatine Kinase 67 CK-MB (CK-2) TNP CK-MB (CK-2) Rel Index TNP Troponin I 0.014 Total Protein Albumin Globulin Albumin/Globulin Ratio Lipase Acetaminophen < 10 L Ethyl Alcohol < 10 06/30/20 23:41 WBC RBC Hgb Hct MCV MCH MCHC RDW Plt Count Neut % (Auto) Lymph % (Auto) Vernon % (Auto) Eos % (Auto) Baso % (Auto) Neut # (Auto) Lymph # (Auto) Vernon # (Auto) Eos # (Auto) Baso # (Auto) PT INR APTT Sodium Potassium Chloride Carbon Dioxide BUN Creatinine Estimated GFR BUN/Creatinine Ratio Glucose Lactate 2.5 H Calcium Phosphorus Magnesium Total Bilirubin AST ALT Alkaline Phosphatase Ammonia Total Creatine Kinase CK-MB (CK-2) CK-MB (CK-2) Rel Index Troponin I Total Protein Albumin Globulin Albumin/Globulin Ratio Lipase Acetaminophen Ethyl Alcohol Assessment & Plan Assessment & Plan narrative: This is a 60-year-old male patient with a history of alcohol abuse liver steatosis, hypertension and chronic neck pain who presents to the hospital due to intractable nausea vomiting with abdominal pain for 3-4 days. 1. Acute alcoholic pancreatitis, present on admission, active. -patient with nausea vomiting onset 3-4 days ago, he stopped eating but continued to drink with resolution of nausea attempt to eat again and again became nauseated. -elevated white blood cell count at 18.5, lipase of 1114. Ultrasound finds no biliary system dilation. -CT scan identifies stranding in the pancreatic tail and a small meta pancreatic fluid consistent with acute pancreatitis, 3 cm area of decreased enhancement in the pancreatic tail which may represent pancreatic necrosis, no pseudocyst. -patient is NPO, normal saline 125 cc/hour with banana bag 125 cc/hour daily file NPO. -requested Dr. Perla, general surgery to consult, we appreciate her evaluation and recommendations. -ordered Zosyn 3.375 g IV every 6 hours. 2. Acute abdominal pain, colitis, present on admission, active. -Patient with acute bilateral upper abdominal pain with nausea vomiting and leukocytosis. -CT scan identifies pancreatitis as above as well as mild colonic wall thickening in the transverse colon and splenic fracture, numerous areas of colo shakira diverticula without diverticulitis. -patient is NPO with IV fluid of 125 cc/hour. -ordered Zosyn 3.375 g IV every 6 hours. 3. Acute kidney injury secondary to dehydration, present on admission, active -patient with 3-4 days of nausea vomiting but continuing to drink alcohol leading to dehydration. -BUN is 43 and creatinine is 1.51 on admission labs. Previous creatinine on 04/17/2020 was 0.91. -patient received normal saline 1 L in the ER will continue IV fluid of 125 cc/hour. -will closely monitor renal function. 4. Alcohol dependence, chronic, active. -patient consumes 1/5 of whiskey daily his last drink was 11 a.m. prior to arrival. -patient experiences withdrawal symptoms rapidly upon cessation of alcohol consumption and has had previous delirium tremens -CIWA protocol initiated with Ativan IV or p.o. per CIWA scoring. -again reinforced cessation of alcohol. 5. Severe hepatic steatosis, elevated bilirubin, present on admission, active. -patient is jaundiced with complaints of generalized abdominal pain unable to discretely palpate liver margins. -total bilirubin is 11.3, AST of 218, ALT of 108 and alkaline phosphatase of 189. MELD-Na score is 26 consistent with a 19.6 % 3 month mortality. -and patient is NPO, reinforced need to quit alcohol. 6. Essential hypertension, chronic, stable -patient with hypertension upon arrival with blood pressure 100/57. -patient is receiving IV fluid improvement pressure to 117/71 upon arrival to the floor. -the patient typically takes metoprolol succinate 25 mg and hydrochlorothiazide 25 mg daily both of which will be held this time. -will follow blood pressure. 7. Gastroesophageal reflux disorder, chronic, stable -patient is status post Titi fundoplication -patient received Protonix 40 mg in the emergency department, will continue Protonix 40 mg IV daily. -patient reports intermittent black stool, ordered stool guaiac 8. Tobacco dependence, active -patient has an approximately 16 pack/year smoking history. -encouraged smoking cessation. VTE prophylaxis: Bilateral SCDs, enoxaparin IV fluid: Normal saline 125 cc/hour with banana bag 1 L daily while NPO. Diet: NPO Code status: Full code, he designates his daughter Elmira or Kathy to be his surrogate decision makers. The patient is admitted to the hospital due to the severity of symptoms and high risk for complication adverse events related to acute pancreatitis and likely development of acute alcohol withdrawal. The patient is admitted as inpatient with expected length of stay greater than 2 midnights. Scores GCS [place] coma scale eye opening: Spontaneous [place] coma scale verbal response: Orientated [place] coma scale motor response: Obey commands Alvin coma scale total score: 15
[2020-07-01] MEDS: [UNRECOGNIZED DRUG - OTHER] IV (00:42)
[2020-07-01] MEDS: MULTIVITAMIN IV (00:42)
[2020-07-01] MEDS: MAGNESIUM SULFATE IV (00:42)
[2020-07-01] MEDS: THIAMINE IV (00:42)
[2020-07-01 00:44] LABS: Ur Creatinine 100 (Normal); Ur Specific Gravity 1.015 (Normal); Urine Tetrahydrocannabinol Negative (Negative); Urine pH 5 (Normal)
[2020-07-01 00:45] LABS: UR Morphine/Opiate cutoff 300 Negative (Negative); Urine Amphetamines Negative (Negative); Urine Barbiturates Negative (Negative); Urine Benzodiazepines Negative (Negative); Urine Cocaine Negative (Negative); Urine MDMA Negative (Negative); Urine Methadone Negative (Negative); Urine Methamphetamines Negative (Negative); Urine Oxycodone Negative (Negative); Urine Phencyclidine Negative (Negative); Urine Tricyclic Antidepressant Negative (Negative)
[2020-07-01 00:50] LABS: COVID19 -Nasal RAPID Negative (Negative)
[2020-07-01 02:13] LABS: Bacteria Urine None Seen; RBC Urine None Seen (0-5/HPF)
[2020-07-01] MEDS: PIPERACILLIN-TAZO 3.375 GM/50 ML FROZ.PIGGY IV ×3 (02:57→14:29)
[2020-07-01 03:42] LABS: Appearance Urine UA Clear; Bilirubin Urine UA 1+ (NEGATIVE); Color Urine UA Orange; Glucose Urine UA NEGATIVE (Negative); Ketones Urine UA NEGATIVE (NEGATIVE); Nitrite Urine UA NEGATIVE (Negative); Occult Blood Urine UA NEGATIVE (Negative); Protein Urine UA 1+ (Negative); Specific Gravity Urine UA 1.005 (1.000-1.035); pH Urine UA 6 (4.5-8.0)
[2020-07-01 03:43] LABS: Culture Indicated Urine Cult Not Indicated; Ictotest Urine Positive (Negative); Leukocyte Esterase Urine UA NEGATIVE (NEGATIVE); Urobilinogen Urine UA 0.2 E.U./dL (0.2); WBC Urine 0-1/HPF (0-5/HPF)
[2020-07-01 06:05] LABS: Add Manual Diff / Slide Review NO; Basophils Absolute Auto 0 /uL (0-100); Basophils Percent Auto 0.1 % (0-2); Eosinophils Absolute Auto 0 /uL (0-450); Eosinophils Percent Auto 0.2 % (2-4); Hematocrit 42.4 % (41-53); Hemoglobin 13.9 g/dL (13.5-17.5); Lymphocytes Absolute Auto 1100 /uL (1100-4500); Lymphocytes Percent Auto 6.9 % (25-40); Mean Corpuscular HGB Conc 32.8 % (30-36); Mean Corpuscular Hemoglobin 34.8 PG (26-34); Mean Corpuscular Volume 106.3 fL (80-100); Monocytes Absolute Auto 1000 /uL (0-900); Monocytes Percent Auto 6.3 % (3-14); Neutrophils Absolute Auto 13800 /uL (1500-7000); Neutrophils Percent Auto 86.5 % (50-75); Platelet Count 140 X10^3/uL (150-400); Red Blood Cell Count 3.99 X10^6/uL (4.5-5.9); Red Cell Distribution Width 16.3 % (11.6-14.8); White Blood Cell Count 15.9 X10^3/uL (4.5-11.0)
[2020-07-01 06:14] LABS: Alanine Aminotransferase 111 IU/L (<50); Albumin Globulin Ratio 1.1 (1.0-2.8); Alkaline Phosphatase 171 U/L (38-126); Aspartate Aminotransferase 195 IU/L (17-59); BUN Creatinine Ratio 26.9 (6-22); Bilirubin Total 11.5 mg/dL (0.2-1.3); Blood Urea Nitrogen 42 mg/dL (9-20); Carbon Dioxide 29 mmol/L (22-32); Chloride 94 mmol/L (98-107); Cholesterol 150 mg/dL (140-199); Estimated Glomerular Filt Rate 45.6 mL/min (>60); Globulin 2.8 g/dL (1.7-4.1); Glucose 111 mg/dL (80-110); HDL Cholesterol 12 mg/dL (40-60); HEMOLYSIS < 15 (0-50); LDL Cholesterol Calculated 59 mg/dL (<100); Lipase 1012 U/L (23-300); Potassium 3.3 mmol/L (3.4-5.1); Sodium 132 mmol/L (137-145); Total Protein 5.8 g/dL (6.3-8.2); Triglycerides 396 mg/dL (35-150)
--- NOTE | 2020-07-01 07:25 | PC.NURSE ---
Admit Note-Patient brought to room 227 at 0145, fatigued, oriented x4, able to transfer to bed with SBA. Banana bag infusing. ST 100-115, BP stable, afebrile, SpO2 >92% on RA, fine diminished crackles bases, shallow breathing. NPO. Was able to rest after 4mg IV morphine given for abdominal pain.
--- NOTE | 2020-07-01 07:31 | DI.MRI.S_ITS ---
PROCEDURE: MR ABDOMEN WO CON INDICATIONS: sig elevated bili, pancreatitis with necrosis, EtOH TECHNIQUE: Coronal HASTE through the abdomen, axial 2-D FLASH in- and [id number], and breath-hold T2 FSE with fat saturation through the biliary system and pancreas. Oblique coronal and axial thin-slice HASTE, radial thick-slab HASTE centered on the extrahepatic bile ducts. COMPARISON: [facility], CT, CT CHEST ABD PEL W CON, 04/05/2020, 10:18. [facility], CT, CT ABDOMEN PELVIS W CON, 06/30/2020, 21:32. [facility], US, US ABDOMEN LIMITED, 06/30/2020, 23:03. FINDINGS: Image quality: There is motion artifact limiting evaluation. Pancreas and biliary system: The gallbladder demonstrates no gallstones, wall thickening, or pericholecystic fluid. Intra- and extra-hepatic biliary ducts are non dilated. No filling defects within the common bile duct to suggest choledocholithiasis. The pancreatic duct is nondistended. Mild peripancreatic edema and fluid is demonstrated along the pancreatic tail consistent with acute pancreatitis. There is enlargement and cystic change within the pancreatic tail distally corresponding area of necrosis seen on CT. No discrete peripancreatic fluid collection to suggest an acute necrotic collection. Other solid organs: The liver demonstrates diffuse signal dropout on out of phase imaging consistent with fatty infiltration. Spleen is normal in size. No adrenal nodules. Kidneys demonstrate no hydronephrosis. There is mild nonspecific perinephric stranding. Nodes and vessels: No retroperitoneal or mesenteric adenopathy by size criteria. Aorta and inferior vena cava are normal in size. Bowel and peritoneum: Visualized bowel loops are normal in caliber. A small amount of peripancreatic fluid is demonstrated along the pancreatic tail with minimal free fluid tracking inferiorly along the left anterior pararenal space and left paracolic gutter. Lung bases: No basal pleural effusions. Heart size is normal. Bones and soft tissues: No ventral hernias. Bone marrow is of normal overall signal. IMPRESSION: 1. No evidence of cholelithiasis or cholecystitis. No biliary ductal dilatation. 2. Peripancreatic fluid along the pancreatic tail consistent with acute pancreatitis. There is enlargement of the pancreatic tail with internal indistinct T2 hyperintensity corresponding to area of necrosis seen on CT. Findings are consistent with necrotizing pancreatitis. No discrete acute necrotic collection identified, with evaluation limited in the absence of intravenous contrast. 3. Hepatic steatosis. Dictated by: Jesse Card M.D. on 07/01/2020 at 15:32 Approved by: Jesse Card M.D. on 07/01/2020 at 15:48
[2020-07-01 07:50] LABS: Magnesium 2.6 mg/dL (1.6-2.3)
[2020-07-01 08:05] LABS: Procalcitonin 7.07 ng/mL (<0.5)
[2020-07-01] MEDS: PANTOPRAZOLE 40 MG VIAL IV (08:21)
[2020-07-01] MEDS: ONDANSETRON 4 MG/2 ML INJ IV (08:21)
[2020-07-01] MEDS: ENOXAPARIN 40 MG/0.4 ML SYRINGE SUBCUT (08:21)
[2020-07-01] MEDS: SODIUM CHLORIDE 0.9% 1,000 ML 125 ML IV ×2 (08:25→22:48)
[2020-07-01 09:14] LABS: Lactate (Lactic Acid) 2.3 mmol/L (0.7-2.1)
[2020-07-01] MEDS: POTASSIUM CHLORIDE 40 MEQ in SODIUM CHLORIDE 0.9% 500 ML 130 ML IV (09:19)
--- NOTE | 2020-07-01 09:47 | PM.CN ---
History of Present Illness Consult details Date Patient Seen: 07/01/20 Time Patient Seen: 10:06 Chief complaint: Vomiting Narrative: This is a 60-year-old male with alcoholic liver disease admitted to Medical service for acute pancreatitis, hyperbilirubinemia and colitis. He presented with epigastric pain associated with nausea and vomiting. At the time of admission he had low-grade sinus tachycardia and mild hypotension which has improved with volume resusucitation. Laboratory studies significant for WBC 19, Plt 160, INR 1.2, Na 130, Cr 1.6, TB 11.3, AST 220, ALT 110, Alk Phos 190, Albumin 3.0, Lipase 1000. CT A/P demonstrates acute pancreatitis, mild colitis of transverse colon, and severe hepatic steatosis. RUQ ultrasound demonstrates a normal diameter common bile duct . Of note his total bilirubin 3 months ago was normal at 0.6. He says his abdomen hurts all over but worse at the epigastric region. He has never been evaluated by a assistant men's soccer coach, he does not recall having had pericentesis before. He has numerous admissions to this hospital for alcohol related issues. Meds Home Medications and Allergies Home Medications Medication Instructions Recorded Confirmed Type hydrochlorothiazide 25 mg PO QAM 06/10/19 03/15/20 History epinephrine [EpiPen] 0.3 mg IM Q15M PRN #2 each 11/14/19 03/15/20 Rx diphenhydramine HCl [Benadryl] 25 mg PO BEDTIME #60 cap 11/23/19 03/15/20 Rx famotidine 20 mg PO BID 01/10/20 03/15/20 History prednisone 40 mg PO DAILY 01/10/20 03/15/20 History prednisone See Rx Instructions .ROUTE 01/19/20 03/15/20 Rx .COMPLEX #14 tab oxycodone-acetaminophen [Percocet] 1 tab PO TID PRN #10 tab 02/26/20 03/15/20 Rx valacyclovir 1,000 mg PO Q8H #21 tab 02/26/20 03/15/20 Rx aspirin 81 mg PO DAILY #30 tab 03/17/20 Rx atorvastatin 20 mg PO BEDTIME #30 tab 03/17/20 Rx metoprolol succinate 25 mg PO DAILY #30 tab 03/17/20 Rx chlordiazepoxide HCl 25 mg PO Q8H PRN #24 cap 04/05/20 Rx cyclobenzaprine 10 mg PO TID PRN #15 tab 04/17/20 Rx diphenhydramine HCl [Benadryl 25 mg PO Q6H PRN #20 tab 04/17/20 Rx Allergy] naproxen [Naprosyn] 500 mg PO BID PRN #20 tab 04/17/20 Rx prednisone 40 mg PO DAILY #8 tab 04/17/20 Rx Allergies Allergy/AdvReac Type Severity Reaction Status Date / Time lisinopril Allergy Severe Swelling Verified 06/30/20 20:26 of Lip/Tongue/Throat citalopram [CITALOPRAM] Allergy Unknown SEIZURES Verified 06/30/20 20:26 hydrocodone [HYDROCODONE] AdvReac Mild N/V Verified 06/30/20 20:26 Exam Vital Signs (past 8 hours): - 07/01/20 02:16 07/01/20 08:00 Temperature 97.3 F L 98.7 F Pulse Rate 111 H 105 H Respiratory Rate 18 13 Blood Pressure 117/72 126/92 H Pulse Oximetry 96 95 Oxygen Delivery Method Room Air Oxygen Flow Rate 0 Narrative Exam Narrative: General-Adult male markedly jaundice Chest-Non labored resp Cardiac Sinus tachycardia Abdomen-Distended tender throughout most prominent at the epigastric Ext-Warm Neuro-Alert following commands Objective Labs Result Diagrams: 07/01/20 05:45 07/01/20 05:45 Labs: Laboratory Results - last 24 hr 06/30/20 06/30/20 06/30/20 20:35 20:35 20:35 WBC 18.5 H RBC 4.25 L Hgb 14.8 Hct 45.0 MCV 106.1 H MCH 34.9 H MCHC 32.9 RDW 16.3 H Plt Count 158 Neut % (Auto) 89.2 H Lymph % (Auto) 4.1 L Burt % (Auto) 5.9 Eos % (Auto) 0.1 L Baso % (Auto) 0.7 Neut # (Auto) 09983 H Lymph # (Auto) 700 L Burt # (Auto) 1100 H Eos # (Auto) 0 Baso # (Auto) 100 PT 13.4 H INR 1.2 APTT 28 D Sodium 130 L Potassium 3.6 Chloride 89 L Carbon Dioxide 25 BUN 43 H Creatinine 1.51 H Estimated GFR 47.4 L BUN/Creatinine Ratio 28.5 H Glucose 138 H Lactate Calcium 9.7 Phosphorus Magnesium Total Bilirubin 11.3 H AST 218 H ALT 109 H Alkaline Phosphatase 189 H Ammonia Total Creatine Kinase CK-MB (CK-2) CK-MB (CK-2) Rel Index Troponin I Total Protein 6.6 Albumin 3.4 L Globulin 3.2 Albumin/Globulin Ratio 1.1 Triglycerides Cholesterol LDL Cholesterol, Calc HDL Cholesterol Lipase 1114 H Procalcitonin Urine Color Urine Appearance Urine pH Ur Specific Story Urine Protein Urine Glucose (UA) Urine Ketones Urine Occult Blood Urine Nitrate Urine Bilirubin Ur Bilirubin Confirm Urine Urobilinogen Ur Leukocyte Esterase Urine RBC Urine WBC Urine Bacteria Ur Culture Indicated? Nasal Screen MRSA (PCR) U Opiates 300ng/mL cut Ur Oxycodone Screen Urine Methadone Screen Acetaminophen Ur Barbiturates Screen U Tricyclic Antidepress Ur Phencyclidine Scrn Ur Amphetamines Screen U Methamphetamines Scrn Ur MDMA Scrn (Ecstasy) U Benzodiazepines Scrn Urine Cocaine Screen U Marijuana (THC) Screen Ethyl Alcohol COVID-19 PCR 06/30/20 06/30/20 06/30/20 20:35 20:35 20:35 WBC RBC Hgb Hct MCV MCH MCHC RDW Plt Count Neut % (Auto) Lymph % (Auto) Burt % (Auto) Eos % (Auto) Baso % (Auto) Neut # (Auto) Lymph # (Auto) Burt # (Auto) Eos # (Auto) Baso # (Auto) PT INR APTT Sodium Potassium Chloride Carbon Dioxide BUN Creatinine Estimated GFR BUN/Creatinine Ratio Glucose Lactate 5.3 H* Calcium Phosphorus 3.0 Magnesium 2.3 Cancelled Total Bilirubin AST ALT Alkaline Phosphatase Ammonia Total Creatine Kinase 67 CK-MB (CK-2) TNP CK-MB (CK-2) Rel Index TNP Troponin I 0.014 Total Protein Albumin Globulin Albumin/Globulin Ratio Triglycerides Cholesterol LDL Cholesterol, Calc HDL Cholesterol Lipase Procalcitonin Urine Color Urine Appearance Urine pH Ur Specific Story Urine Protein Urine Glucose (UA) Urine Ketones Urine Occult Blood Urine Nitrate Urine Bilirubin Ur Bilirubin Confirm Urine Urobilinogen Ur Leukocyte Esterase Urine RBC Urine WBC Urine Bacteria Ur Culture Indicated? Nasal Screen MRSA (PCR) U Opiates 300ng/mL cut Ur Oxycodone Screen Urine Methadone Screen Acetaminophen < 10 L Ur Barbiturates Screen U Tricyclic Antidepress Ur Phencyclidine Scrn Ur Amphetamines Screen U Methamphetamines Scrn Ur MDMA Scrn (Ecstasy) U Benzodiazepines Scrn Urine Cocaine Screen U Marijuana (THC) Screen Ethyl Alcohol < 10 COVID-19 PCR 06/30/20 06/30/20 07/01/20 21:45 23:41 00:23 WBC RBC Hgb Hct MCV MCH MCHC RDW Plt Count Neut % (Auto) Lymph % (Auto) Burt % (Auto) Eos % (Auto) Baso % (Auto) Neut # (Auto) Lymph # (Auto) Burt # (Auto) Eos # (Auto) Baso # (Auto) PT INR APTT Sodium Potassium Chloride Carbon Dioxide BUN Creatinine Estimated GFR BUN/Creatinine Ratio Glucose Lactate 2.5 H Calcium Phosphorus Magnesium Total Bilirubin AST ALT Alkaline Phosphatase Ammonia 11 Total Creatine Kinase CK-MB (CK-2) CK-MB (CK-2) Rel Index Troponin I Total Protein Albumin Globulin Albumin/Globulin Ratio Triglycerides Cholesterol LDL Cholesterol, Calc HDL Cholesterol Lipase Procalcitonin Urine Color Urine Appearance Urine pH Ur Specific Story Urine Protein Urine Glucose (UA) Urine Ketones Urine Occult Blood Urine Nitrate Urine Bilirubin Ur Bilirubin Confirm Urine Urobilinogen Ur Leukocyte Esterase Urine RBC Urine WBC Urine Bacteria Ur Culture Indicated? Nasal Screen MRSA (PCR) U Opiates 300ng/mL cut Negative Ur Oxycodone Screen Negative Urine Methadone Screen Negative Acetaminophen Ur Barbiturates Screen Negative U Tricyclic Antidepress Negative Ur Phencyclidine Scrn Negative Ur Amphetamines Screen Negative U Methamphetamines Scrn Negative Ur MDMA Scrn (Ecstasy) Negative U Benzodiazepines Scrn Negative Urine Cocaine Screen Negative U Marijuana (THC) Screen Negative Ethyl Alcohol COVID-19 PCR 07/01/20 07/01/20 07/01/20 00:23 00:30 01:40 WBC RBC Hgb Hct MCV MCH MCHC RDW Plt Count Neut % (Auto) Lymph % (Auto) Burt % (Auto) Eos % (Auto) Baso % (Auto) Neut # (Auto) Lymph # (Auto) Burt # (Auto) Eos # (Auto) Baso # (Auto) PT INR APTT Sodium Potassium Chloride Carbon Dioxide BUN Creatinine Estimated GFR BUN/Creatinine Ratio Glucose Lactate Calcium Phosphorus Magnesium Total Bilirubin AST ALT Alkaline Phosphatase Ammonia Total Creatine Kinase CK-MB (CK-2) CK-MB (CK-2) Rel Index Troponin I Total Protein Albumin Globulin Albumin/Globulin Ratio Triglycerides Cholesterol LDL Cholesterol, Calc HDL Cholesterol Lipase Procalcitonin Urine Color [place] Urine Appearance Clear Urine pH 6 Ur Specific Story 1.005 Urine Protein 1+ H Urine Glucose (UA) Negative Urine Ketones Negative Urine Occult Blood Negative Urine Nitrate Negative Urine Bilirubin 1+ H Ur Bilirubin Confirm Positive H Urine Urobilinogen 0.2 Ur Leukocyte Esterase Negative Urine RBC None seen Urine WBC 0-1/hpf Urine Bacteria None seen Ur Culture Indicated? Cult not indicated Nasal Screen MRSA (PCR) Negative for mrsa U Opiates 300ng/mL cut Ur Oxycodone Screen Urine Methadone Screen Acetaminophen Ur Barbiturates Screen U Tricyclic Antidepress Ur Phencyclidine Scrn Ur Amphetamines Screen U Methamphetamines Scrn Ur MDMA Scrn (Ecstasy) U Benzodiazepines Scrn Urine Cocaine Screen U Marijuana (THC) Screen Ethyl Alcohol COVID-19 PCR Negative 07/01/20 07/01/20 07/01/20 05:45 05:45 05:45 WBC 15.9 H RBC 3.99 L Hgb 13.9 Hct 42.4 MCV 106.3 H MCH 34.8 H MCHC 32.8 RDW 16.3 H Plt Count 140 L Neut % (Auto) 86.5 H Lymph % (Auto) 6.9 L Burt % (Auto) 6.3 Eos % (Auto) 0.2 L Baso % (Auto) 0.1 Neut # (Auto) 03656 H Lymph # (Auto) 1100 Burt # (Auto) 1000 H Eos # (Auto) 0 Baso # (Auto) 0 PT INR APTT Sodium 132 L Potassium 3.3 L Chloride 94 L Carbon Dioxide 29 BUN 42 H Creatinine 1.56 H Estimated GFR 45.6 L BUN/Creatinine Ratio 26.9 H Glucose 111 H Lactate Calcium 9.0 Phosphorus Magnesium Total Bilirubin 11.5 H AST 195 H ALT 111 H Alkaline Phosphatase 171 H Ammonia Total Creatine Kinase CK-MB (CK-2) CK-MB (CK-2) Rel Index Troponin I Total Protein 5.8 L Albumin 3.0 L Globulin 2.8 Albumin/Globulin Ratio 1.1 Triglycerides 396 H Cholesterol 150 LDL Cholesterol, Calc 59 HDL Cholesterol 12 L Lipase 1012 H Procalcitonin 7.07 H Urine Color Urine Appearance Urine pH Ur Specific Story Urine Protein Urine Glucose (UA) Urine Ketones Urine Occult Blood Urine Nitrate Urine Bilirubin Ur Bilirubin Confirm Urine Urobilinogen Ur Leukocyte Esterase Urine RBC Urine WBC Urine Bacteria Ur Culture Indicated? Nasal Screen MRSA (PCR) U Opiates 300ng/mL cut Ur Oxycodone Screen Urine Methadone Screen Acetaminophen Ur Barbiturates Screen U Tricyclic Antidepress Ur Phencyclidine Scrn Ur Amphetamines Screen U Methamphetamines Scrn Ur MDMA Scrn (Ecstasy) U Benzodiazepines Scrn Urine Cocaine Screen U Marijuana (THC) Screen Ethyl Alcohol COVID-19 PCR 07/01/20 07/01/20 05:45 08:40 WBC RBC Hgb Hct MCV MCH MCHC RDW Plt Count Neut % (Auto) Lymph % (Auto) Burt % (Auto) Eos % (Auto) Baso % (Auto) Neut # (Auto) Lymph # (Auto) Burt # (Auto) Eos # (Auto) Baso # (Auto) PT INR APTT Sodium Potassium Chloride Carbon Dioxide BUN Creatinine Estimated GFR BUN/Creatinine Ratio Glucose Lactate 2.3 H Calcium Phosphorus Magnesium 2.6 H Total Bilirubin AST ALT Alkaline Phosphatase Ammonia Total Creatine Kinase CK-MB (CK-2) CK-MB (CK-2) Rel Index Troponin I Total Protein Albumin Globulin Albumin/Globulin Ratio Triglycerides Cholesterol LDL Cholesterol, Calc HDL Cholesterol Lipase Procalcitonin Urine Color Urine Appearance Urine pH Ur Specific Story Urine Protein Urine Glucose (UA) Urine Ketones Urine Occult Blood Urine Nitrate Urine Bilirubin Ur Bilirubin Confirm Urine Urobilinogen Ur Leukocyte Esterase Urine RBC Urine WBC Urine Bacteria Ur Culture Indicated? Nasal Screen MRSA (PCR) U Opiates 300ng/mL cut Ur Oxycodone Screen Urine Methadone Screen Acetaminophen Ur Barbiturates Screen U Tricyclic Antidepress Ur Phencyclidine Scrn Ur Amphetamines Screen U Methamphetamines Scrn Ur MDMA Scrn (Ecstasy) U Benzodiazepines Scrn Urine Cocaine Screen U Marijuana (THC) Screen Ethyl Alcohol COVID-19 PCR Assessment & Plan Assessment and plan (1) Hyperbilirubinemia: Status: Acute Assessment & Plan narrative: 60-year-old man with alcoholic liver disease, MELD 22, who is admitted to medical service for acute pancreatitis, colitis and new onset hyperbilirubinemia. He is currently hemodynamically stable without encephalopathy or coagulopathy. At admission WBC 19, Plt 160, INR 1.2, Na 130, Cr 1.6, TB 11.3, AST 220, ALT 110, Alk Phos 190, Albumin 3.0, Lipase 1000, Ammonia 11 #Hyperbilirubinemia-The right upper quadrant ultrasound demonstrates a normal common bile duct there is no evidence of common bile duct obstruction. CT A/P demonstrates severe hepatic steatosis. An MRCP is pending but I suspect that the hyperbilirubinemia is secondary to intrinsic hepatic dysfunction and his bilirubin was normal 3 months ago. I would strongly recommend that he is transfered to a tertiary care facility for management of his liver disease by a assistant men's soccer coach and with the capability to handle hepatic failure. -F/u MRCP -Transfer #Colitis-Mild largely involving the transverse colon I suspect that this may be secondary to the adjacent pancreatitis. NPO Zosyn
[2020-07-01 10:46] LABS: Reflexed Lactate in 2 Hours Y
[2020-07-01] MEDS: LORazepam 2 MG/ML INJ IV ×2 (11:13→15:35)
[2020-07-01 12:45] LABS: Lactate 2HR (Lactic Acid Rflx) 2.4 mmol/L (0.7-2.1)
--- NOTE | 2020-07-01 15:14 | CM.DANOTE ---
DCP/Brief Assessment: Reviewed chart. Patient is a 60yr old male admitted to [facility] with abdominal pain, n/v x3 days. PCP listed is Adán Holman. Primary payor is 1)Medicare 2)Medicaid. Spoke with provider in AM rounds. It is anticipated that patient will be transferring to higher level of care with liver failure. Patient currently with CIWA of 10 and not medically appropriate to interview. P: Anticipate transfer to higher level of care. If patient does not transfer he will need to be assessed by [facility] for alcohol abuse. 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 No Advance Directives on File No History Provided By Medical Record Prior Living Arrangements House Household Members significant other Independent with ADL's Unsure Is patient alert and oriented? No: Not currently, CIWA 10 Comment Patient does have history of alcohol abuse. Discharge Plan Transfer to Higher Level of Care Additional Comment Could possibly speak to patient about outside resources for alcohol abuse when he is more stable. Review Status In Process Next Review Type Continued Stay Review
--- NOTE | 2020-07-01 15:58 | P.DS_ITS ---
History of Present Illness History of Present Illness Date Patient Seen: 06/30/20 Chief complaint: Vomiting Narrative: Written by Gene BEVERLY: Mr. Elroy Larkin is a 59 year old male with history significant for hypertension, prior stroke, dyspepsia and previous angioedema reaction with unknown trigger and alcohol dependence who presents to the ER with 3-4 days of abdominal pain with nausea vomiting. Patient states he has not been able to eat for several days but has been able to drink alcohol. He states that he stopped drinking this morning and began shaking and therefore took a ?sip? of whiskey at 11:00 a.m.. The patient states on a regular basis he consumes with whiskey 4 hours. Complains of some lightheadedness and dizziness but no visual changes. He reports no sore throat but dry mouth. He knows of no COVID-19 exposure. He denies complaints of chest pain or palpitations, shortness of breath cough or wheezing. States his abdomen is more distended than usual and has had multiple rounds of bilious emesis and denies hematemesis. He reports having regular bowel movements that him from brown to black. He denies complaints difficulty urinating urgency or frequency. Upon arrival to the ER the patient has temperature 97.6?, heart rate 122, blood pressure 100/57, respirations of 20 saturating 98% on room air. He has an initial report of pain at 8/10. A CT of the abdomen and pelvis is obtained finding clear lung bases with normal heart, acute pancreatitis with decreased enhancement of the tail of the pancreas which may represent necrosis, mild colonic wall thickening of the transverse colon and splenic fracture consistent with mild colitis, diverticulosis without diverticulitis and severe hepatic steatosis. Right upper quadrant ultrasound finds sludge in the gallbladder with negative Judd sign, no dilation of the common bile duct. On laboratory analysis the patient has an elevated white count 18.5, hemoglobin 14.8 and hematocrit of 45 with platelets of 158. He has a PT of 13.4, INR 1.2 and a PTT of 28. He is hyponatremic at 130 otherwise electrolytes are within normal range he has a BUN of 43 and creatinine of 1.51. He has a total bilirubin of of 11.3, AST of 218, ALT 109 and alkaline phosphatase of 198. His ammonia level is 11 and he has elevated lipase at 1114. He has lactic acid initially at 5.3 in following fluid bolus it is down to 2.5. He has a total CK of 67 and a troponin at 0.014. Urinary tox screen is negative. COVID-19 is negative. While in the ER the patient received 1 L of normal saline followed by a banana bag at 125 cc/hour, Zofran and Protonix. The patient is admitted to the hospitalist service for acute alcoholic pancreatitis, protracted nausea vomiting with acute kidney injury. Discharge Providers Provider Date of admission: 07/01/20 00:25 Discharge Date: 07/01/20 Primary care physician: Adán Holman Consults: 07/01/20 00:29 Consult to Dietitian, Adult Routine Comment: Reason For Exam: Acute alcoholic pancreatitis 07/01/20 02:04 Consult to General Surgery Routine Comment: Consulting Provider: Yadira Perla Reason for consultation: Acute alcoholic pancreatitis, possible necrosis Has provider been notified: No 07/01/20 08:00 Consult to CHIEF RELAY TESTER - Still Operator Helper Routine Comment: CHIEF RELAY TESTER Consult: Substance Abuse Assess Discharge provider: Judith Chowdary DO Summary Hospital Course Discharge Diagnosis: 1. Acute alcoholic necrotizing pancreatitis, present on admission. Active. 2. Acute alcoholic hepatitis and hyperbilirubinemia, in setting of severe alcohol induced hepatic steatosis, present on admission. Active. 3. Acute kidney injury, present on admission. Active. 4. Acute alcohol withdrawal, in setting of chronic alcohol dependence, present on admission. Active. 5. Hypertension, chronic, present on admission. Stable. 6. GERD, chronic, present on admission. Stable. 7. Tobacco dependence, chronic, present on admission. Stable. Hospital Course: Elroy Larkin is a 59-year-old male with past medical history significant for hypertension, previous CVA, GERD, idiopathic angioedema, and alcohol dependence who presented to the ED with 3-4 days of abdominal pain with associated nausea and vomiting. 1. Acute alcoholic necrotizing pancreatitis, present on admission. Active. -Patient presented with nausea and vomiting for 3-4 days and unable to take in PO intake eating but continued to drink with resolution of nausea attempt to eat again and again became nauseated. -Initial WBC 18.5 and trended down now 15.9. Procalcitonin 7.07. Continued to monitor WBC and procalcitonin daily. -Initial lipase 1114 and trending down now 1012. -CT abdomen and pelvis demonstrated acute pancreatitis with decreased enhancement in the tail of the pancreas indicative of pancreatic necrosis. Mild reactive colonic wall thickening involving the transverse colon and splenic fracture suggesting mild colitis. Severe hepatic steatosis. -Abdominal ultrasound did not demonstrate any evidence of hepatobiliary obstruction or evidence of cholecystitis. Hepatomegaly and market fatty infiltration present. -MRCP demonstrated no evidence of cholelithiasis/cholecystitis or biliary ductal dilatation. Peripancreatic fluid along the pancreatic tail consistent with acute pancreatitis. There is enlargement of the pancreatic tail with internal indistinct T2 hyperintensity corresponding to area of necrosis seen on CT. Findings are consistent with necrotizing pancreatitis. No discrete acute necrotic collection identified, with evaluation limited in the absence of intravenous contrast. Hepatic steatosis. -Continued NPO for bowel rest. Continue normal saline at 125 mL/hr. Received banana bag x1. Continued to monitor electrolytes and replete as necessary. -Continued pain control with morphine to 4 mg every 4 hours as needed for abdominal pain. -Received Zosyn 3.375 g IV x 3 and switched to meropenem 1 g every 8 hours for better gram negative coverage specifically Enterobacter cloacae. -Consulted general surgery, Dr. Musa, who recommended transfer to acute higher level of care for interdisciplinary approach of Medicine, hepatology and possibly Nephrology. Discussed case with hospitalist and hepatology at [facility] who accepted patient for transfer for multidisciplinary approach and higher level of care. -Discussed poor prognosis and high risk of mortality with patient who expresses his understanding, remains full code, and is agreeable to transfer for higher level of care. 2. Acute alcoholic hepatitis and hyperbilirubinemia, in setting of severe alcohol induced hepatic steatosis, present on admission. Active. -MELD-Na score is 26 consistent with a 19.6 % 3 month mortality. Glucocorticoids contraindicated with necrotizing pancreatitis. Liver function appears to be intact with initial platelets 158, INR 1.2, and albumin 3.4. Patient is not a liver transplant candidate. -Ammonia level normal at 11. No evidence of hepatic encephalopathy. -CT abdomen and pelvis with contrast, abdominal ultrasound and MRCP demonstrated severe hepatic steatosis as above. -Initial LFTs: Total bilirubin 11.3, AST 218, ALT 108 and alkaline phosphatase 189. Previous bilirubin 0.6 in 03/2020. -Continued to monitor LFTs 1-2 times daily. -Reinforced cessation of alcohol. 3. Acute kidney injury, present on admission. Active. -Secondary to prerenal azotemia with dehydration from poor PO intake and nausea and vomiting. -Initial creatinine 1.51. Baseline creatinine 0.91 on 04/2020. Creatinine trending up now 1.56. -Received 1 L NS and banana bag in ED. Continued normal saline at 125 mL/hr. -Avoided nephrotoxic agents. -Continued to monitor creatinine 1-2 times daily. 4. Acute alcohol withdrawal, in setting of chronic alcohol dependence, present on admission. Active. -Patient consumes 1/5 of whiskey daily with previous drink 06/30/2020 at 11:00. Patient reports alcohol withdrawal symptoms rapidly upon alcohol cessation. Patient has history of DTs. Patient denies history of alcohol withdrawal seizure. -CIWA protocol initiated with Ativan IV or p.o. per CIWA scoring. Most recent CIWA score 3. -Reinforced cessation of alcohol. 5. Hypertension, chronic, present on admission. Stable. -Patient's blood pressure low normal on admission at 100/57 and improved with IV fluid resuscitation. -Held home metoprolol succinate 25 mg and hydrochlorothiazide 25 mg daily. -Continued to monitor blood pressure closely. 6. GERD, chronic, present on admission. Stable. -Status post Blanche fundoplication. -Continued Protonix 40 mg IV daily. 7. Tobacco dependence, chronic, present on admission. Stable. -Patient 1 ppd x 16 years. -Counseled the patient on smoking cessation. Code status: Full code, he designates his daughter Elmira Chavez to be his surrogate decision makers VTE prophylaxis: Bilateral SCDs, SQ Heparin Exam Vital Signs (past 8 hours): - 07/01/20 08:00 07/01/20 11:58 07/01/20 12:00 Temperature 98.7 F Pulse Rate 105 H 111 H 112 H Respiratory Rate 13 14 20 Blood Pressure 126/92 H 125/80 125/80 Pulse Oximetry 95 97 07/01/20 15:32 Temperature 97.3 F L Pulse Rate 114 H Respiratory Rate 20 Blood Pressure 111/85 Pulse Oximetry 94 Oxygen Delivery Method Room Air Oxygen Flow Rate 0 Narrative Exam Narrative: General: Older male lying in bed and in no acute distress, well-developed, well-nourished, jaundice and acutely ill, appropriately interactive. HEENT: Normocephalic, atraumatic. External ears without defect. Pupils equal, round, and reactive to light. Icteric sclerae. Moist conjunctivae, and no lid lag. Oropharynx free of erythema and cobble stoning with moist mucosa. Neck: Supple with full range of motion. No jugular venous distension. No lymphadenopathy or thyromegaly. Cardiovascular: Regular rhythm, mildly tachycardic, without murmurs, rubs, or gallops appreciated Pulmonary: Clear to auscultation bilaterally without crackles, wheezes, or rhonchi. Normal respiratory effort with no use of accessory muscles. Abdomen: Soft, bowel sounds present, tenderness to palpation in epigastrium, mild distension. No ascites or fluid wave. Extremities: No clubbing, cyanosis, or edema. Skin: Palmar erythema present. No spider angiomata or telangiectasias. Jaundice. Neurological: Cranial nerves grossly intact. Possible mild subtle asterixis versus tremulousness from mild alcohol withdrawal. Psychiatric: Normal mood and flat affect. Alert and oriented to person, place, and time. Objective Labs Result Diagrams: 07/01/20 05:45 07/01/20 05:45 Labs: Laboratory Results - last 24 hr 06/30/20 06/30/20 06/30/20 20:35 20:35 20:35 WBC 18.5 H RBC 4.25 L Hgb 14.8 Hct 45.0 MCV 106.1 H MCH 34.9 H MCHC 32.9 RDW 16.3 H Plt Count 158 Neut % (Auto) 89.2 H Lymph % (Auto) 4.1 L [place] % (Auto) 5.9 Eos % (Auto) 0.1 L Baso % (Auto) 0.7 Neut # (Auto) 16890 H Lymph # (Auto) 700 L [place] # (Auto) 1100 H Eos # (Auto) 0 Baso # (Auto) 100 PT 13.4 H INR 1.2 APTT 28 D Sodium 130 L Potassium 3.6 Chloride 89 L Carbon Dioxide 25 BUN 43 H Creatinine 1.51 H Estimated GFR 47.4 L BUN/Creatinine Ratio 28.5 H Glucose 138 H Lactate Calcium 9.7 Phosphorus Magnesium Total Bilirubin 11.3 H AST 218 H ALT 109 H Alkaline Phosphatase 189 H Ammonia Total Creatine Kinase CK-MB (CK-2) CK-MB (CK-2) Rel Index Troponin I Total Protein 6.6 Albumin 3.4 L Globulin 3.2 Albumin/Globulin Ratio 1.1 Triglycerides Cholesterol LDL Cholesterol, Calc HDL Cholesterol Lipase 1114 H Procalcitonin Urine Color Urine Appearance Urine pH Ur Specific [place] Urine Protein Urine Glucose (UA) Urine Ketones Urine Occult Blood Urine Nitrate Urine Bilirubin Ur Bilirubin Confirm Urine Urobilinogen Ur Leukocyte Esterase Urine RBC Urine WBC Urine Bacteria Ur Culture Indicated? Nasal Screen MRSA (PCR) U Opiates 300ng/mL cut Ur Oxycodone Screen Urine Methadone Screen Acetaminophen Ur Barbiturates Screen U Tricyclic Antidepress Ur Phencyclidine Scrn Ur Amphetamines Screen U Methamphetamines Scrn Ur MDMA Scrn (Ecstasy) U Benzodiazepines Scrn Urine Cocaine Screen U Marijuana (THC) Screen Ethyl Alcohol COVID-19 PCR 06/30/20 06/30/20 06/30/20 20:35 20:35 20:35 WBC RBC Hgb Hct MCV MCH MCHC RDW Plt Count Neut % (Auto) Lymph % (Auto) [place] % (Auto) Eos % (Auto) Baso % (Auto) Neut # (Auto) Lymph # (Auto) [place] # (Auto) Eos # (Auto) Baso # (Auto) PT INR APTT Sodium Potassium Chloride Carbon Dioxide BUN Creatinine Estimated GFR BUN/Creatinine Ratio Glucose Lactate 5.3 H* Calcium Phosphorus 3.0 Magnesium 2.3 Cancelled Total Bilirubin AST ALT Alkaline Phosphatase Ammonia Total Creatine Kinase 67 CK-MB (CK-2) TNP CK-MB (CK-2) Rel Index TNP Troponin I 0.014 Total Protein Albumin Globulin Albumin/Globulin Ratio Triglycerides Cholesterol LDL Cholesterol, Calc HDL Cholesterol Lipase Procalcitonin Urine Color Urine Appearance Urine pH Ur Specific [place] Urine Protein Urine Glucose (UA) Urine Ketones Urine Occult Blood Urine Nitrate Urine Bilirubin Ur Bilirubin Confirm Urine Urobilinogen Ur Leukocyte Esterase Urine RBC Urine WBC Urine Bacteria Ur Culture Indicated? Nasal Screen MRSA (PCR) U Opiates 300ng/mL cut Ur Oxycodone Screen Urine Methadone Screen Acetaminophen < 10 L Ur Barbiturates Screen U Tricyclic Antidepress Ur Phencyclidine Scrn Ur Amphetamines Screen U Methamphetamines Scrn Ur MDMA Scrn (Ecstasy) U Benzodiazepines Scrn Urine Cocaine Screen U Marijuana (THC) Screen Ethyl Alcohol < 10 COVID-19 PCR 06/30/20 06/30/20 07/01/20 21:45 23:41 00:23 WBC RBC Hgb Hct MCV MCH MCHC RDW Plt Count Neut % (Auto) Lymph % (Auto) [place] % (Auto) Eos % (Auto) Baso % (Auto) Neut # (Auto) Lymph # (Auto) [place] # (Auto) Eos # (Auto) Baso # (Auto) PT INR APTT Sodium Potassium Chloride Carbon Dioxide BUN Creatinine Estimated GFR BUN/Creatinine Ratio Glucose Lactate 2.5 H Calcium Phosphorus Magnesium Total Bilirubin AST ALT Alkaline Phosphatase Ammonia 11 Total Creatine Kinase CK-MB (CK-2) CK-MB (CK-2) Rel Index Troponin I Total Protein Albumin Globulin Albumin/Globulin Ratio Triglycerides Cholesterol LDL Cholesterol, Calc HDL Cholesterol Lipase Procalcitonin Urine Color Urine Appearance Urine pH Ur Specific [place] Urine Protein Urine Glucose (UA) Urine Ketones Urine Occult Blood Urine Nitrate Urine Bilirubin Ur Bilirubin Confirm Urine Urobilinogen Ur Leukocyte Esterase Urine RBC Urine WBC Urine Bacteria Ur Culture Indicated? Nasal Screen MRSA (PCR) U Opiates 300ng/mL cut Negative Ur Oxycodone Screen Negative Urine Methadone Screen Negative Acetaminophen Ur Barbiturates Screen Negative U Tricyclic Antidepress Negative Ur Phencyclidine Scrn Negative Ur Amphetamines Screen Negative U Methamphetamines Scrn Negative Ur MDMA Scrn (Ecstasy) Negative U Benzodiazepines Scrn Negative Urine Cocaine Screen Negative U Marijuana (THC) Screen Negative Ethyl Alcohol COVID-19 PCR 07/01/20 07/01/20 07/01/20 00:23 00:30 01:40 WBC RBC Hgb Hct MCV MCH MCHC RDW Plt Count Neut % (Auto) Lymph % (Auto) [place] % (Auto) Eos % (Auto) Baso % (Auto) Neut # (Auto) Lymph # (Auto) [place] # (Auto) Eos # (Auto) Baso # (Auto) PT INR APTT Sodium Potassium Chloride Carbon Dioxide BUN Creatinine Estimated GFR BUN/Creatinine Ratio Glucose Lactate Calcium Phosphorus Magnesium Total Bilirubin AST ALT Alkaline Phosphatase Ammonia Total Creatine Kinase CK-MB (CK-2) CK-MB (CK-2) Rel Index Troponin I Total Protein Albumin Globulin Albumin/Globulin Ratio Triglycerides Cholesterol LDL Cholesterol, Calc HDL Cholesterol Lipase Procalcitonin Urine Color [place] Urine Appearance Clear Urine pH 6 Ur Specific [place] 1.005 Urine Protein 1+ H Urine Glucose (UA) Negative Urine Ketones Negative Urine Occult Blood Negative Urine Nitrate Negative Urine Bilirubin 1+ H Ur Bilirubin Confirm Positive H Urine Urobilinogen 0.2 Ur Leukocyte Esterase Negative Urine RBC None seen Urine WBC 0-1/hpf Urine Bacteria None seen Ur Culture Indicated? Cult not indicated Nasal Screen MRSA (PCR) Negative for mrsa U Opiates 300ng/mL cut Ur Oxycodone Screen Urine Methadone Screen Acetaminophen Ur Barbiturates Screen U Tricyclic Antidepress Ur Phencyclidine Scrn Ur Amphetamines Screen U Methamphetamines Scrn Ur MDMA Scrn (Ecstasy) U Benzodiazepines Scrn Urine Cocaine Screen U Marijuana (THC) Screen Ethyl Alcohol COVID-19 PCR Negative 07/01/20 07/01/20 07/01/20 05:45 05:45 05:45 WBC 15.9 H RBC 3.99 L Hgb 13.9 Hct 42.4 MCV 106.3 H MCH 34.8 H MCHC 32.8 RDW 16.3 H Plt Count 140 L Neut % (Auto) 86.5 H Lymph % (Auto) 6.9 L [place] % (Auto) 6.3 Eos % (Auto) 0.2 L Baso % (Auto) 0.1 Neut # (Auto) 81350 H Lymph # (Auto) 1100 [place] # (Auto) 1000 H Eos # (Auto) 0 Baso # (Auto) 0 PT INR APTT Sodium 132 L Potassium 3.3 L Chloride 94 L Carbon Dioxide 29 BUN 42 H Creatinine 1.56 H Estimated GFR 45.6 L BUN/Creatinine Ratio 26.9 H Glucose 111 H Lactate Calcium 9.0 Phosphorus Magnesium Total Bilirubin 11.5 H AST 195 H ALT 111 H Alkaline Phosphatase 171 H Ammonia Total Creatine Kinase CK-MB (CK-2) CK-MB (CK-2) Rel Index Troponin I Total Protein 5.8 L Albumin 3.0 L Globulin 2.8 Albumin/Globulin Ratio 1.1 Triglycerides 396 H Cholesterol 150 LDL Cholesterol, Calc 59 HDL Cholesterol 12 L Lipase 1012 H Procalcitonin 7.07 H Urine Color Urine Appearance Urine pH Ur Specific [place] Urine Protein Urine Glucose (UA) Urine Ketones Urine Occult Blood Urine Nitrate Urine Bilirubin Ur Bilirubin Confirm Urine Urobilinogen Ur Leukocyte Esterase Urine RBC Urine WBC Urine Bacteria Ur Culture Indicated? Nasal Screen MRSA (PCR) U Opiates 300ng/mL cut Ur Oxycodone Screen Urine Methadone Screen Acetaminophen Ur Barbiturates Screen U Tricyclic Antidepress Ur Phencyclidine Scrn Ur Amphetamines Screen U Methamphetamines Scrn Ur MDMA Scrn (Ecstasy) U Benzodiazepines Scrn Urine Cocaine Screen U Marijuana (THC) Screen Ethyl Alcohol COVID-19 PCR 07/01/20 07/01/20 07/01/20 05:45 08:40 12:23 WBC RBC Hgb Hct MCV MCH MCHC RDW Plt Count Neut % (Auto) Lymph % (Auto) [place] % (Auto) Eos % (Auto) Baso % (Auto) Neut # (Auto) Lymph # (Auto) [place] # (Auto) Eos # (Auto) Baso # (Auto) PT INR APTT Sodium Potassium Chloride Carbon Dioxide BUN Creatinine Estimated GFR BUN/Creatinine Ratio Glucose Lactate 2.3 H 2.4 H Calcium Phosphorus Magnesium 2.6 H Total Bilirubin AST ALT Alkaline Phosphatase Ammonia Total Creatine Kinase CK-MB (CK-2) CK-MB (CK-2) Rel Index Troponin I Total Protein Albumin Globulin Albumin/Globulin Ratio Triglycerides Cholesterol LDL Cholesterol, Calc HDL Cholesterol Lipase Procalcitonin Urine Color Urine Appearance Urine pH Ur Specific [place] Urine Protein Urine Glucose (UA) Urine Ketones Urine Occult Blood Urine Nitrate Urine Bilirubin Ur Bilirubin Confirm Urine Urobilinogen Ur Leukocyte Esterase Urine RBC Urine WBC Urine Bacteria Ur Culture Indicated? Nasal Screen MRSA (PCR) U Opiates 300ng/mL cut Ur Oxycodone Screen Urine Methadone Screen Acetaminophen Ur Barbiturates Screen U Tricyclic Antidepress Ur Phencyclidine Scrn Ur Amphetamines Screen U Methamphetamines Scrn Ur MDMA Scrn (Ecstasy) U Benzodiazepines Scrn Urine Cocaine Screen U Marijuana (THC) Screen Ethyl Alcohol COVID-19 PCR Discharge Plan Discharge Plan Disposition: Xfer Acute Care Hospital Discharge orders & Medications Follow up/Referrals: Adán Holman [Primary Care Provider] - Discharge Data Primary Care Provider: Adán Holman
[2020-07-01 19:32] LABS: Hemoglobin A1C% w Est Avg Glu 4.8 % (4.0-6.0)
[2020-07-01 19:35] LABS: Lactate (Lactic Acid) 2.4 mmol/L (0.7-2.1)
[2020-07-01 19:36] LABS: Alanine Aminotransferase 127 IU/L (<50); Albumin 3.2 g/dL (3.5-5.0); Alkaline Phosphatase 187 U/L (38-126); Aspartate Aminotransferase 246 IU/L (17-59); BUN Creatinine Ratio 20.9 (6-22); Bilirubin Total 13.2 mg/dL (0.2-1.3); Blood Urea Nitrogen 47 mg/dL (9-20); Calcium 8.9 mg/dL (8.4-10.2); Carbon Dioxide 28 mmol/L (22-32); Chloride 98 mmol/L (98-107); Estimated Glomerular Filt Rate 29.9 mL/min (>60); Globulin 3.2 g/dL (1.7-4.1); Glucose 124 mg/dL (80-110); HEMOLYSIS < 15 (0-50); Magnesium 2.9 mg/dL (1.6-2.3); Sodium 135 mmol/L (137-145); Total Protein 6.4 g/dL (6.3-8.2)
[2020-07-01] MEDS: MEROPENEM 1 GM/50 ML PIGGYBACK IV (19:45)
[2020-07-01] MEDS: HEPARIN 5,000 UNIT/ML VIAL 5000 UNIT SUBCUT (20:05)
[2020-07-01 21:20] LABS: Reflexed Lactate in 2 Hours Y
[2020-07-01 21:49] LABS: Lactate 2HR (Lactic Acid Rflx) 1.9 mmol/L (0.7-2.1)
--- NOTE | 2020-07-01 23:17 | PC.NURSE ---
Report called to Latrice at [facility]. I also contacted his Dig [employer] Brisa and daughter Elmira to let them know where he was going. Brisa requested for the patient's belongings, including wallet, except for cellphone, to be left at nurses station to be picked up by her in the morning.
--- NOTE | 2020-07-02 00:19 | CM.DANOTE ---
Patient left facility at 0010, accompanied by [facility] ambulance. Patient was on 3L NC, SR on telemetry, BP 123/70. Patient alert, but drowsy. IVF infusing per physician order. Patient left facility with his cell phone and charger operator helper, which was given to transport team. All paperwork was given to transport team, as well. Patient voided, and brief was changed just prior to discharge from facility. Patient requesting ice chips upon leaving. Report was given to cyber transport systems specialist and medics, and report was called by evening Monik JIMENEZ to [facility]. Patient resting on transport stretcher as he was leaving facility, in no distress. Family updated by evening Monik JIMENEZ. Peripheral IV catheter remains upon discharge to [facility].
== END 2020-07-02 00:10 | disposition short-term general hospital (02) | DRG 439 ==
LOC: ED 07-01 00:08 → ICU 07-01 00:26
PROVIDERS: Internal Medicine; Admitting Provider Nurse Practitioner Adult Health; Emergency Provider Emergency Medicine; PCP Physician Assistant Medical; Referring Provider Emergency Medicine; Visit Provider Nurse Practitioner Adult Health
DX: K85.21 Alcohol induced acute pancreatitis with uninfected necrosis (principal); N17.9 Acute kidney failure, unspecified; F10.239 Alcohol dependence with withdrawal, unspecified; E86.0 Dehydration; Y90.0 Blood alcohol level of less than 20 mg/100 ml; K76.0 Fatty (change of) liver, not elsewhere classified; F17.210 Nicotine dependence, cigarettes, uncomplicated; K52.9 Noninfective gastroenteritis and colitis, unspecified; K70.10 Alcoholic hepatitis without ascites; K21.9 Gastro-esophageal reflux disease without esophagitis; I10 Essential (primary) hypertension; Z86.73 Personal history of transient ischemic attack (TIA), and cerebral infarction without residual deficits
CPT/HCPCS: 36415; 74177; 74181; 76705; 80053; 80061; 80305; 80320; 80329; 81001; 82140; 82550; 82962; 83036; 83605; 83690; 83735; 84100; 84145; 84484; 85025; 85610; 85730; 87635; 87797; 93005; 93010; 99232; 99284; C9113; G0480; J1644; J1650; J2060; J2270; J2405; J2543; J3475; J3480; Q9967

== ENCOUNTER 2020-07-25 12:51 | Emergency (ER) | payer MEDICARE, MEDICAID, SELFPAY ==
[2018-08-01 09:00] VITALS: PULSE 43; RESP 16; O2SAT 96
[2020-07-01 02:10] VITALS: BMI 31.2
[2020-07-25] VITALS (18 sets, daily range): BP systolic 111–126; BP diastolic 76–93; PULSE 72–81; RESP 22; TEMP 36.5; O2SAT 95–100; BMI 30.3
--- NOTE | 2020-07-25 13:02 | ED_ITS ---
HPI - Weakness General Chief complaint: Weakness Stated complaint: Problems with speech, Left side weakness Time Seen by Provider: 07/25/20 12:51 Source: patient and EMS Mode of arrival: EMS Limitations: altered mental status History of Present Illness HPI Narrative: 60-year-old male smoker with longstanding history of alcohol abuse presents by EMS for evaluation of confusion and generalized weakness. Family reports that he has been this way for the past few days. Patient states that he has been sober for 2-3 weeks and that he was recently admitted down at [facility] under similar circumstances. He is confused and generally weak and has become quite jaundice. He complains of abdominal distension but no significant pain. He denies any fever or chills. He has no complaint of blurred vision or trouble with speech. He has no focal neurologic numbness, tingling or weakness. MD Complaint: generalized weakness Onset (ago): day(s) Duration: constant Location: generalized Migration: none Severity: moderate Exacerbating factors: none Associated symptoms: confusion, easy bruising and loss of appetite Related Data Home Medications Medication Instructions Recorded Confirmed hydrochlorothiazide 25 mg PO QAM 06/10/19 07/01/20 famotidine 20 mg PO BID 01/10/20 07/01/20 Previous Rx's Medication Instructions Recorded epinephrine [EpiPen] 0.3 mg IM Q15M PRN #2 each 11/14/19 diphenhydramine HCl [Benadryl] 25 mg PO BEDTIME #60 cap 11/23/19 oxycodone-acetaminophen [Percocet] 1 tab PO TID PRN #10 tab 02/26/20 aspirin 81 mg PO DAILY #30 tab 03/17/20 atorvastatin 20 mg PO BEDTIME #30 tab 03/17/20 metoprolol succinate 25 mg PO DAILY #30 tab 03/17/20 cyclobenzaprine 10 mg PO TID PRN #15 tab 04/17/20 diphenhydramine HCl [Benadryl 25 mg PO Q6H PRN #20 tab 04/17/20 Allergy] naproxen [Naprosyn] 500 mg PO BID PRN #20 tab 04/17/20 prednisone 40 mg PO DAILY #8 tab 04/17/20 Allergies Allergy/AdvReac Type Severity Reaction Status Date / Time lisinopril Allergy Severe Swelling Verified 06/30/20 20:26 of Lip/Tongue/Throat citalopram [CITALOPRAM] Allergy Unknown SEIZURES Verified 06/30/20 20:26 hydrocodone [HYDROCODONE] AdvReac Mild N/V Verified 06/30/20 20:26 Review of Systems Constitutional Constitutional: Denies chills, Denies fatigue, Denies fever(s), Denies frequent falls, Denies lethargy, Reports poor appetite and Denies weakness Comments: Confusion Eyes Eyes: Denies change in vision, Denies eye discharge, Denies irritation and Denies loss of vision ENT Ears, Nose, Mouth, and Throat: Denies change in voice, Denies dizziness, Denies neck pain, Denies sore throat and Denies throat swelling Cardiovascular Cardiovascular: Denies chest pain, Denies irregular heart rhythm, Denies lightheadedness, Denies palpitations, Denies dyspnea, Denies dyspnea on exertion and Denies orthopnea Respiratory Respiratory: Denies cough, Denies dyspnea, Denies dyspnea on exertion and Denies wheezing Gastrointestinal Gastrointestinal: Denies abdominal pain, Denies change in bowel habits, Denies diarrhea, Denies nausea and Denies vomiting Comments: Distension Musculoskeletal Musculoskeletal: Denies neck pain and Denies numbness Integumentary/Breasts Skin/Breast: Denies pruritus, Denies erythema, Denies rash, Denies wounds and Reports jaundice Neurologic Neurologic: Denies behavioral changes, Denies confusion, Denies dizziness, Denies frequent falls, Denies loss of vision, Denies numbness and Denies weakness Psychiatric Psychiatric: Denies anxiety, Denies behavioral changes, Denies confusion, Denies depression, Denies homicidal ideation and Denies suicidal ideation Endocrine Endocrine: Denies fatigue, Denies flushing and Denies palpitations Hematologic/Lymphatic Hematologic/Lymphatic: Denies easy bruising Allergic/Immunologic Allergic/Immunologic: Denies urticaria, Denies throat swelling and Denies wheezing Patient History Medical History Alcohol dependence (Acute) Chronic thoracic spine pain (Acute) Dyspepsia (Acute) History of rib fracture (Acute) History of stroke (Acute) Hx of angioedema (Acute) Hypertension (Acute) Injury of hip, right (Acute) Intermittent lightheadedness (Acute) Zoster (Acute) Surgical History History of eye surgery (Acute) History of Blanche fundoplication (Acute) History of splenectomy (Acute) Status post cervical spinal fusion (Acute) Family History Father Congestive heart failure Lymph edema Mother Perforated sigmoid colon Brother Stroke Sister Hypertension Social History household members: significant other Smoking Status: Current every day smoker alcohol intake: current Smoking Status: Current every day smoker tobacco type: cigarettes alcohol intake frequency: 3 or more drinks per day Alcohol type: hard liquor Substance Use Type: does not use Exam Narrative Exam Narrative: GENERAL: [60] year old patient appears stated age. Obviously critically ill, GCS 14 (confusion) HEAD: Atraumatic. Normocephalic. EYES: Pupils equal round and reactive. Extraocular motions intact. Yellowing of sclera noted. No injection or drainage. ENT: Nose without bleeding, purulent drainage. Throat without erythema, tonsillar hypertrophy or exudate. Airway patent. NECK: Trachea midline. Non tender CARDIOVASCULAR: Regular rate and rhythm without murmurs, gallops, or rubs. RESPIRATORY: Clear to auscultation. Breath sounds equal bilaterally. No wheezes, rales, or rhonchi. GASTROINTESTINAL: Abdomen soft, distended with presence of fluid wave, nondistended. EXTREMITIES: No edema or joint tenderness. BACK: Nontender without deformity or crepitance. No flank tenderness. NEURO: AOx3. Mild confusion but no focal findings SKIN: Notable jaundice, otherwise no rash or erythema of visible areas Initial Vital Signs Initial Vital Signs: Vital Signs Temperature 97.7 F 07/25/20 12:59 Pulse Rate 75 07/25/20 12:59 Respiratory Rate 22 07/25/20 12:59 Blood Pressure 113/76 07/25/20 12:59 Pulse Oximetry 99 07/25/20 12:59 Course Orders Ordered: ED Orders 07/25/20 13:02 CT head/brain wo con Stat 07/25/20 13:28 Urine Culture Stat Urine Microscopic Stat 07/25/20 13:45 COVID19 -ED/INPAT/OR/L&D Stat 07/25/20 14:12 Acetaminophen Stat Ammonia (NH3) Stat Blood Culture Stat Complete Blood Count AUTO DIFF Stat Comprehensive Metabolic Panel Stat Ethanol (ETOH) Stat Lactate (Lactic Acid) Stat Lipase Stat Magnesium Stat NT-proBNP (BNP-Adult 18+) Stat Prothrombin Time INR Stat Troponin & CK Cardiac Panel Stat 07/25/20 14:53 CT abdomen pelvis wo con Stat Discontinued Medications Ceftriaxone Sodium/Dextrose (Rocephin) 2 gm in 50 mls @ 100 mls/hr IV NOW ONE Stop: 07/25/20 15:24 Last Infusion: 07/25/20 15:40 Dose: 0 mls/hr Documented by: Admin: 07/25/20 15:03 Dose: 100 mls/hr Documented by: EMMANUEL Reevaluation(s) Reevaluation #1: Consultations Consultation #1: call to [facility] hospitalist (Leodan) who is happy to accept, she was able to review notes from recent hospitalization and had no significant additions to our care plan Vital Signs Vital signs: Vital Signs - 8 hr 07/25/20 12:59 07/25/20 13:06 07/25/20 13:30 Temperature 97.7 F Pulse Rate 75 75 74 Respiratory Rate 22 Blood Pressure 113/76 Pulse Oximetry 99 99 100 07/25/20 13:37 07/25/20 13:45 07/25/20 14:00 Temperature Pulse Rate 76 74 75 Respiratory Rate Blood Pressure 113/83 116/88 121/85 Pulse Oximetry 99 98 97 07/25/20 14:04 07/25/20 14:05 07/25/20 14:19 Temperature Pulse Rate 77 Respiratory Rate Blood Pressure 114/84 119/88 Pulse Oximetry 98 98 07/25/20 14:30 07/25/20 14:45 07/25/20 15:00 Temperature Pulse Rate 76 77 79 Respiratory Rate Blood Pressure 111/81 114/84 Pulse Oximetry 96 95 98 07/25/20 15:18 07/25/20 15:38 07/25/20 16:00 Temperature Pulse Rate 72 77 75 Respiratory Rate Blood Pressure 126/78 Pulse Oximetry 98 97 07/25/20 16:30 07/25/20 17:00 Temperature Pulse Rate 79 77 Respiratory Rate Blood Pressure Pulse Oximetry 97 96 MDM - Weakness Lab Data Result diagrams: 07/25/20 14:12 07/25/20 14:12 Labs: Lab Results 10/10/20 10/10/20 10/10/20 Range/Units 13:28 13:45 14:12 WBC (4.5-11.0) X10^3/uL RBC (4.5-5.9) X10^6/uL Hgb (13.5-17.5) g/dL Hct (41-53) % MCV (80-100) fL MCH (26-34) PG MCHC (30-36) % RDW (11.6-14.8) % Plt Count (150-400) X10^3/uL Neut % (Auto) (50-75) % Lymph % (Auto) (25-40) % [place] % (Auto) (3-14) % Eos % (Auto) (2-4) % Baso % (Auto) (0-2) % Neut # (Auto) (2199-2073) /uL Lymph # (Auto) (9046-0408) /uL [place] # (Auto) (0-900) /uL Eos # (Auto) (0-450) /uL Baso # (Auto) (0-100) /uL PT (10.1-12.7) SECONDS INR (0.9-1.3) Sodium (137-145) mmol/L Potassium (3.4-5.1) mmol/L Chloride (98-107) mmol/L Carbon Dioxide (22-32) mmol/L BUN (9-20) mg/dL Creatinine (0.66-1.25) mg/dL Estimated GFR (>60) mL/min BUN/Creatinine Ratio (6-22) Glucose (80-110) mg/dL Lactate (0.7-2.1) mmol/L Calcium (8.4-10.2) mg/dL Magnesium (1.6-2.3) mg/dL Total Bilirubin (0.2-1.3) mg/dL AST (17-59) IU/L ALT (<50) IU/L Alkaline Phosphatase (38-126) U/L Ammonia < 9 L (9-30) umol/L Total Creatine Kinase (55-170) U/L CK-MB (CK-2) CK-MB (CK-2) Rel Index Troponin I (0.01-0.034) ng/mL NT-Pro-B Natriuret Pep (<125) pg/mL Total Protein (6.3-8.2) g/dL Albumin (3.5-5.0) g/dL Globulin (1.7-4.1) g/dL Albumin/Globulin Ratio (1.0-2.8) Lipase (23-300) U/L Urine RBC 1-5/hpf (0-5/HPF) Urine WBC >100/hpf H (0-5/HPF) Urine Bacteria Many (>30) H (None) Ur Culture Indicated? Specimen cultured Acetaminophen Ethyl Alcohol COVID-19 PCR Negative (Negative) 07/25/20 07/25/20 07/25/20 Range/Units 14:12 14:12 14:12 WBC 15.2 H (4.5-11.0) X10^3/uL RBC 4.84 (4.5-5.9) X10^6/uL Hgb 17.6 H (13.5-17.5) g/dL Hct 51.6 (41-53) % MCV 106.5 H (80-100) fL MCH 36.3 H (26-34) PG MCHC 34.0 (30-36) % RDW 16.4 H (11.6-14.8) % Plt Count 103 L (150-400) X10^3/uL Neut % (Auto) 86.9 H (50-75) % Lymph % (Auto) 4.0 L (25-40) % [place] % (Auto) 8.1 (3-14) % Eos % (Auto) 0.8 L (2-4) % Baso % (Auto) 0.2 (0-2) % Neut # (Auto) 64713 H (4945-0027) /uL Lymph # (Auto) 600 L (1400-4722) /uL [place] # (Auto) 1200 H (0-900) /uL Eos # (Auto) 100 (0-450) /uL Baso # (Auto) 0 (0-100) /uL PT 16.3 H (10.1-12.7) SECONDS INR 1.4 H (0.9-1.3) Sodium (137-145) mmol/L Potassium (3.4-5.1) mmol/L Chloride (98-107) mmol/L Carbon Dioxide (22-32) mmol/L BUN (9-20) mg/dL Creatinine (0.66-1.25) mg/dL Estimated GFR (>60) mL/min BUN/Creatinine Ratio (6-22) Glucose (80-110) mg/dL Lactate (0.7-2.1) mmol/L Calcium (8.4-10.2) mg/dL Magnesium (1.6-2.3) mg/dL Total Bilirubin (0.2-1.3) mg/dL AST (17-59) IU/L ALT (<50) IU/L Alkaline Phosphatase (38-126) U/L Ammonia (9-30) umol/L Total Creatine Kinase (55-170) U/L CK-MB (CK-2) CK-MB (CK-2) Rel Index Troponin I (0.01-0.034) ng/mL NT-Pro-B Natriuret Pep (<125) pg/mL Total Protein (6.3-8.2) g/dL Albumin (3.5-5.0) g/dL Globulin (1.7-4.1) g/dL Albumin/Globulin Ratio (1.0-2.8) Lipase (23-300) U/L Urine RBC (0-5/HPF) Urine WBC (0-5/HPF) Urine Bacteria (None) Ur Culture Indicated? Acetaminophen Cancelled Ethyl Alcohol Cancelled COVID-19 PCR (Negative) 07/25/20 07/25/20 07/25/20 Range/Units 14:12 14:12 16:30 WBC (4.5-11.0) X10^3/uL RBC (4.5-5.9) X10^6/uL Hgb (13.5-17.5) g/dL Hct (41-53) % MCV (80-100) fL MCH (26-34) PG MCHC (30-36) % RDW (11.6-14.8) % Plt Count (150-400) X10^3/uL Neut % (Auto) (50-75) % Lymph % (Auto) (25-40) % [place] % (Auto) (3-14) % Eos % (Auto) (2-4) % Baso % (Auto) (0-2) % Neut # (Auto) (8567-3506) /uL Lymph # (Auto) (3744-8234) /uL [place] # (Auto) (0-900) /uL Eos # (Auto) (0-450) /uL Baso # (Auto) (0-100) /uL PT (10.1-12.7) SECONDS INR (0.9-1.3) Sodium 131 L (137-145) mmol/L Potassium 4.2 (3.4-5.1) mmol/L Chloride 97 L (98-107) mmol/L Carbon Dioxide 26 (22-32) mmol/L BUN 53 H (9-20) mg/dL Creatinine 2.68 H (0.66-1.25) mg/dL Estimated GFR 24.4 L (>60) mL/min BUN/Creatinine Ratio 19.8 (6-22) Glucose 94 (80-110) mg/dL Lactate 2.5 H 1.7 (0.7-2.1) mmol/L Calcium 8.2 L (8.4-10.2) mg/dL Magnesium 2.6 H (1.6-2.3) mg/dL Total Bilirubin 30.7 H (0.2-1.3) mg/dL AST 341 H (17-59) IU/L ALT 160 H (<50) IU/L Alkaline Phosphatase 331 H (38-126) U/L Ammonia (9-30) umol/L Total Creatine Kinase 28 L (55-170) U/L CK-MB (CK-2) TNP CK-MB (CK-2) Rel Index TNP Troponin I < 0.012 (0.01-0.034) ng/mL NT-Pro-B Natriuret Pep 444 H (<125) pg/mL Total Protein 6.9 (6.3-8.2) g/dL Albumin 2.9 L (3.5-5.0) g/dL Globulin 4.0 (1.7-4.1) g/dL Albumin/Globulin Ratio 0.7 L (1.0-2.8) Lipase 759 H (23-300) U/L Urine RBC (0-5/HPF) Urine WBC (0-5/HPF) Urine Bacteria (None) Ur Culture Indicated? Acetaminophen < 10 L Ethyl Alcohol < 10 COVID-19 PCR (Negative) Urine Dip Bedside Urine Glucose 250 mg/dl Bedside Urine Bilirubin +++ 4 Bedside Urine Ketone - Negative Urine Specific Shepherd 1.025 Bedside Urine Occult Blood +++ Bedside Urine pH 6.0 Bedside Urine Protein +/- 15 Bedside Urine Urobilinogen - Negative Bedside Urine Nitrite - Negative Bedside Urine Leukocytes ++ [address] scan - head: Radiologist Impression: [address] [id number] [address] Scan Report Signed Patient: Elroy Larkin RMR#: [id number] : 1960Acct:[id number] Age/Sex: 60 / MDate of Service: 07/25/20 Loc: ED Accession Number: [id number] Procedure: CT head/brain wo con Ordering Provider: Devang Mccollum D.O. PROCEDURE: CT HEAD/BRAIN WO CON INDICATIONS: altered, left side weakness TECHNIQUE: Noncontrast 4.5 mm thick angled axial sections acquired from the foramen magnum to the vertex, with coronal and sagittal reformats. For radiation dose reduction, the following was used: automated exposure control, adjustment of mA and/or kV according to patient size. COMPARISON: [facility], CT, CT HEAD/BRAIN WO CON, 03/15/2020, 16:55. FINDINGS: Image quality: Excellent. CSF spaces: Basal cisterns are patent. No extra-axial fluid collections. The ventricles are symmetric in size and shape. There is mild cerebral volume loss, with resultant ventricular and sulcal prominence. Brain: No intracranial hemorrhage, mass, or mass effect. There are subcortical, periventricular and deep white matter hypodensities consistent with mild chronic small vessel ischemic changes. Small hypodensities within the bilateral caudate heads are redemonstrated compatible with prior small lacunar infarcts. There is intracranial internal carotid artery atherosclerosis. Skull and face: Calvarium and visualized facial bones are intact, without suspicious lesions. Sinuses: Visualized sinuses and mastoids are clear. IMPRESSION: 1. No acute intracranial abnormality. 2. Small hypodensities redemonstrated in the caudate heads bilaterally compatible with prior small lacunar infarcts. 3. Mild chronic white matter small vessel ischemic changes. Dictated by: Jesse Card M.D. on 07/25/2020 at 12:35 Approved by: Jesse Card M.D. on 07/25/2020 at 12:37 Discharge Plan Departure Prescriptions: No Action epinephrine [EpiPen] 0.3 mg/0.3 mL auto-injector 0.3 mg IM Q15M PRN (Reason: angioedema) Qty: 2 RF: 0 diphenhydramine HCl [Benadryl] 25 mg capsule 25 mg PO BEDTIME Qty: 60 RF: 0 oxycodone-acetaminophen [Percocet] 5-325 mg tablet 1 tab PO TID PRN (Reason: pain) Qty: 10 RF: 0 metoprolol succinate 25 mg Tablet Extended Release 24 Hr 25 mg PO DAILY Qty: 30 RF: 0 aspirin 81 mg tablet,delayed release (DR/EC) 81 mg PO DAILY Qty: 30 RF: 0 atorvastatin 20 mg tablet 20 mg PO BEDTIME Qty: 30 RF: 0 prednisone 20 mg tablet 40 mg PO DAILY Qty: 8 RF: 0 diphenhydramine HCl [Benadryl Allergy] 25 mg tablet 25 mg PO Q6H PRN (Reason: allergy symptoms) Qty: 20 RF: 0 naproxen [Naprosyn] 500 mg tablet 500 mg PO BID PRN (Reason: pain) Qty: 20 RF: 0 cyclobenzaprine 10 mg tablet 10 mg PO TID PRN (Reason: muscle spasm) Qty: 15 RF: 0 hydrochlorothiazide 25 mg tablet 25 mg PO QAM RF: 0 famotidine 20 mg Tablet 20 mg PO BID RF: 0 Referrals: Adán Holman [Primary Care Provider] -
--- NOTE | 2020-07-25 13:04 | PC.NURSE ---
patient arrived with EMS, states he has been weak and unable to stand up. Additionally reports feeling more bloated than usual. Presents with visibly distended abdomen and visibly jaundice. reports last drink was june 29. States he quit drinking and smoking on the same day. EMS reported patient refused to stand up stating he will black out. EMS did orthostatic blood pressures, states little to no change from laying to sitting. however patient stated he felt like he was going to pass out when sitting. Patient currently sitting bolt upright on stretcher, normotensive and denies any dizzyness.
[2020-07-25 13:44] LABS: Bacteria Urine Many (>30); Culture Indicated Urine Specimen Cultured; RBC Urine 1-5/HPF (0-5/HPF); WBC Urine >100/HPF (0-5/HPF)
[2020-07-25 14:29] LABS: INR 1.4 (0.9-1.3); Prothrombin Time 16.3 SECONDS (10.1-12.7)
[2020-07-25 14:35] LABS: Acetaminophen < 10 ug/mL (10-30); Alanine Aminotransferase 160 IU/L (<50); Albumin 2.9 g/dL (3.5-5.0); Albumin Globulin Ratio 0.7 (1.0-2.8); Alkaline Phosphatase 331 U/L (38-126); Aspartate Aminotransferase 341 IU/L (17-59); BUN Creatinine Ratio 19.8 (6-22); Blood Urea Nitrogen 53 mg/dL (9-20); Calcium 8.2 mg/dL (8.4-10.2); Carbon Dioxide 26 mmol/L (22-32); Chloride 97 mmol/L (98-107); Creatine Kinase 28 U/L (55-170); Estimated Glomerular Filt Rate 24.4 mL/min (>60); Ethanol (ETOH) < 10 mg/dL; Glucose 94 mg/dL (80-110); Lipase 759 U/L (23-300); Magnesium 2.6 mg/dL (1.6-2.3); Potassium 4.2 mmol/L (3.4-5.1); Sodium 131 mmol/L (137-145); Total Protein 6.9 g/dL (6.3-8.2)
[2020-07-25 14:43] LABS: Bilirubin Total 30.7 mg/dL (0.2-1.3)
[2020-07-25 14:46] LABS: NT-proBNP (BNP-Adult 18+) 444 pg/mL (<125); Troponin I < 0.012 ng/mL (0.01-0.034)
[2020-07-25 14:53] LABS: Add Manual Diff / Slide Review NO; Basophils Absolute Auto 0 /uL (0-100); Basophils Percent Auto 0.2 % (0-2); Eosinophils Absolute Auto 100 /uL (0-450); Eosinophils Percent Auto 0.8 % (2-4); Hematocrit 51.6 % (41-53); Hemoglobin 17.6 g/dL (13.5-17.5); Lymphocytes Absolute Auto 600 /uL (1100-4500); Mean Corpuscular Hemoglobin 36.3 PG (26-34); Mean Corpuscular Volume 106.5 fL (80-100); Monocytes Absolute Auto 1200 /uL (0-900); Monocytes Percent Auto 8.1 % (3-14); Neutrophils Absolute Auto 13200 /uL (1500-7000); Neutrophils Percent Auto 86.9 % (50-75); Platelet Count 103 X10^3/uL (150-400); Red Blood Cell Count 4.84 X10^6/uL (4.5-5.9); Red Cell Distribution Width 16.4 % (11.6-14.8); White Blood Cell Count 15.2 X10^3/uL (4.5-11.0)
--- NOTE | 2020-07-25 14:53 | DI.CT.S_ITS ---
PROCEDURE: CT ABDOMEN PELVIS WO CON INDICATIONS: abdominal pain, distension, jaundice, kidney failure TECHNIQUE: Noncontrast 5 mm thick sections acquired from the diaphragms to the symphysis. 5 mm coronal and sagittal reformats were then performed. For radiation dose reduction, the following was used: automated exposure control, adjustment of mA and/or kV according to patient size. COMPARISON: [facility], CT, CT ABDOMEN PELVIS W CON, 06/30/2020, 21:32. [facility], MR, MR ABDOMEN WO CON, 07/01/2020, 14:47. FINDINGS: Image quality: There is motion artifact slightly limiting evaluation. ABDOMEN: Lung bases: There is elevation of the right hemidiaphragm with mild associated right basilar atelectasis. Heart size is normal. Solid organs: The liver is enlarged but appears decreased in size compared to the prior study. There is indistinct increased attenuation peripherally within the anterior right hepatic lobe as well as posteriorly in the left hepatic lobe and within the caudate lobe which may represent areas of focal fatty sparing or vascular shunting. There is also indistinct high attenuation along the gallbladder fossa consistent with vascular shunting or focal fatty sparing. The gallbladder is distended without calcified gallstones or wall thickening. There is a small amount of dependent increased attenuation within the gallbladder suggestive of biliary sludge. Biliary system is non-dilated. The spleen is normal in size. No adrenal nodules. Kidneys demonstrate no hydronephrosis. There is a hypoattenuating lesion within the pancreatic tail redemonstrated measuring approximately 3.1 x 2.3 cm in transverse dimension with adjacent peripancreatic fat stranding. A small amount of peripancreatic fluid is also demonstrated extending inferiorly along the left anterior pararenal space. Peritoneum and bowel: There is a moderate amount of ascites in the abdomen and pelvis which is new from the prior study. The stomach is nondistended but there is suggestion of gastric wall thickening. Mild bowel wall thickening is demonstrated within the left abdomen associated with free fluid. The findings are suggestive of reactive changes secondary to ascites. There is mild segmental wall thickening of the ascending and transverse colon. There is also mild segmental wall thickening within the mid sigmoid colon. Findings are suggestive of a mild colitis or reactive changes secondary to ascites. There is colonic diverticulosis without acute diverticulitis. Nodes and vessels: No retroperitoneal or mesenteric adenopathy by size criteria. Aorta and inferior vena cava are normal in caliber. The portal vein is normal in caliber and patent. Miscellaneous: No ventral hernias. PELVIS: Genitourinary: Bladder wall thickness is normal. Miscellaneous: There is a small right inguinal hernia containing a small amount of loculated ascitic fluid. No inguinal adenopathy. Bones: No suspicious bony lesions. No vertebral body compression fractures. IMPRESSION: 1. Interval decrease in size of the liver with diffuse hypoattenuation redemonstrated consistent with fatty infiltration. Peripheral areas of ill-defined hyperdensity in the liver likely represent areas of focal fatty sparing or vascular shunting. 2. Hypoattenuating lesion redemonstrated within the pancreatic tail is suggestive of necrotizing pancreatitis given the adjacent inflammatory changes. However, continued short-term follow-up is recommended to demonstrate resolution, as a pancreatic neoplasm cannot be excluded. 3. Moderate ascites within the abdomen and pelvis, new from the prior study. 4. No evidence of hydronephrosis. 5. Distention of the gallbladder with suspected biliary sludge. No calcified gallstones or gallbladder wall thickening. 6. Bowel wall thickening involving jejunal loops in the left abdomen as well as the ascending and transverse colon and the sigmoid colon. The findings may represent an infectious or inflammatory enterocolitis or reactive changes due to ascites. Dictated by: Jesse Card M.D. on 07/25/2020 at 14:45 Approved by: Jesse Card M.D. on 07/25/2020 at 14:56
[2020-07-25] MEDS: CEFTRIAXONE 2 GM/50 ML FROZ.PIGGY IV (15:03)
[2020-07-25 15:11] LABS: Ammonia (NH3) < 9 umol/L (9-30); Lactate (Lactic Acid) 2.5 mmol/L (0.7-2.1)
[2020-07-25 15:15] LABS: HEMOLYSIS < 15 (0-50)
[2020-07-25 16:21] LABS: Reflexed Lactate in 2 Hours Y
[2020-07-25 16:29] LABS: COVID19 -Nasal RAPID Negative (Negative)
[2020-07-25 16:49] LABS: Lactate 2HR (Lactic Acid Rflx) 1.7 mmol/L (0.7-2.1)
== END 2020-07-25 17:42 | disposition short-term general hospital (02) ==
PROVIDERS: Emergency Provider Emergency Medicine; PCP Physician Assistant Medical
DX: K76.7 Hepatorenal syndrome (principal); R41.0 Disorientation, unspecified; R53.1 Weakness; R10.9 Unspecified abdominal pain; N17.9 Acute kidney failure, unspecified
CPT/HCPCS: 36415; 70450; 74176; 80053; 80320; 80329; 81003; 81015; 82140; 82550; 83605; 83690; 83735; 83880; 84484; 85025; 85610; 87040; 87077; 87086; 87186; 87635; 96365; 99284; G0480; J0696

== ENCOUNTER 2021-01-27 13:24 | Emergency (ER) | payer MEDICARE, MEDICAID, SELFPAY ==
[2018-08-01 09:00] VITALS: PULSE 43; RESP 16; O2SAT 96
[2020-07-01 02:10] VITALS: BMI 31.2
[2021-01-27 13:28] VITALS: BP 125/80; PULSE 89; RESP 20; TEMP 37.1; O2SAT 100
--- NOTE | 2021-01-27 13:50 | DI.US.S_ITS ---
PROCEDURE: US PERIPH VENOUS LOW EXTREM LT INDICATIONS: LEFT LEG SWELLING. HISTORY OF DEEP VEIN THROMBOSIS TECHNIQUE: Real-time imaging, as well as color and pulse Doppler interrogation, were performed of the lower extremity deep veins from the inguinal ligament to the popliteal fossa. COMPARISON: None. FINDINGS: The common femoral, femoral and popliteal veins are normally compressible, and free of intraluminal thrombus. Color and pulse Doppler demonstrate normal phasic intraluminal flow. There is normal augmentation response to distal compression maneuver. IMPRESSION: Negative for deep venous thrombosis. Dictated by: Candido Vega M.D. on 01/27/2021 at 14:00 Approved by: Candido Vega M.D. on 01/27/2021 at 14:01
--- NOTE | 2021-01-27 16:56 | ED.EXTPRO ---
HPI - Extremity Problem General Chief complaint: Extremity Problem,Nontraumatic Stated complaint: swelling in left leg, lower leg Time Seen by Provider: 01/27/21 16:56 Source: patient Mode of arrival: Ambulatory Limitations: no limitations History of Present Illness HPI Narrative: 61-year-old male comes emergency department with complaint of swelling of his left leg. Patient states that he was trying to get off the floor yesterday. He has some residual weakness and debility after being hospitalized for an extended period of time last year. No fevers, chills, no chest pain or shortness of breath. Patient has not appreciated any redness or color change today but did note redness yesterday. Patient had some localized swelling of the lateral calf but states it is better today. He noticed a stinging sensation and discomfort at that local area that radiated down toward the foot. Patient has not had any swelling of the foot itself. Patient was concerned about possible DVT he had 1 in the past. He does take a daily aspirin Related Data Home Medications Medication Instructions Recorded Confirmed hydrochlorothiazide 25 mg PO QAM 06/10/19 07/01/20 famotidine 20 mg PO BID 01/10/20 07/01/20 Previous Rx's Medication Instructions Recorded epinephrine [EpiPen] 0.3 mg IM Q15M PRN #2 each 11/14/19 diphenhydramine HCl [Benadryl] 25 mg PO BEDTIME #60 cap 11/23/19 oxycodone-acetaminophen [Percocet] 1 tab PO TID PRN #10 tab 02/26/20 aspirin 81 mg PO DAILY #30 tab 03/17/20 atorvastatin 20 mg PO BEDTIME #30 tab 03/17/20 metoprolol succinate 25 mg PO DAILY #30 tab 03/17/20 cyclobenzaprine 10 mg PO TID PRN #15 tab 04/17/20 diphenhydramine HCl [Benadryl 25 mg PO Q6H PRN #20 tab 04/17/20 Allergy] naproxen [Naprosyn] 500 mg PO BID PRN #20 tab 04/17/20 prednisone 40 mg PO DAILY #8 tab 04/17/20 Allergies Allergy/AdvReac Type Severity Reaction Status Date / Time lisinopril Allergy Severe Swelling Verified 06/30/20 20:26 of Lip/Tongue/Throat citalopram [CITALOPRAM] Allergy Unknown SEIZURES Verified 06/30/20 20:26 hydrocodone [HYDROCODONE] AdvReac Mild N/V Verified 06/30/20 20:26 Review of Systems Review of Systems ROS Unobtainable: All systems reviewed & are unremarkable except as noted in HPI and below Patient History Medical History Alcohol dependence Chronic thoracic spine pain Dyspepsia History of rib fracture History of stroke Hx of angioedema Hypertension Injury of hip, right Intermittent lightheadedness Zoster Surgical History History of eye surgery History of Blanche fundoplication History of splenectomy Status post cervical spinal fusion Family History Father Congestive heart failure Lymph edema Mother Perforated sigmoid colon Brother Stroke Sister Hypertension Social History household members: significant other Smoking Status: Current every day smoker alcohol intake: current Smoking Status: Current every day smoker tobacco type: cigarettes alcohol intake frequency: 3 or more drinks per day Alcohol type: hard liquor Substance Use Type: does not use Exam Narrative Exam Narrative: GENERAL: Alert and oriented x three, well-nourished male in mild distress. HEENT: Head normocephalic, atraumatic, EOMI, pupils reactive, face symmetric, moist mucous membranes NECK: Supple, full range of motion CARDIOVASCULAR: Regular rate and rhythm without murmurs, rubs or gallops. RESPIRATORY: Breath sounds equal bilaterally, no wheezes rales or rhonchi. ABDOMEN: Soft, nontender. Normoactive bowel sounds all 4 quadrants. No guarding or rebound, rigidity, no mass EXTREMITIES: Normal range of motion, no clubbing. Patient has some mild localized edema on the lateral lower calf. No warmth, no erythema. Nontender to touch. There is no fluctuance or induration. Patient has full range of motion no bony tenderness. Neurovascularly intact. Negative Homans. NEUROLOGICAL: Cranial nerves II through XII grossly intact. Moving all extremities SKIN: Warm, dry, no petechiae, no rashes or lesions. Initial Vital Signs Initial Vital Signs: Vital Signs Temperature 98.7 F 01/27/21 13:28 Pulse Rate 89 04/14/21 13:28 Respiratory Rate 20 01/27/21 13:28 Blood Pressure 125/80 01/27/21 13:28 Pulse Oximetry 100 01/27/21 13:28 Course Orders Ordered: ED Orders 01/27/21 13:50 US periph venous low extrem lt Stat Vital Signs Vital signs: Vital Signs - 8 hr 01/27/21 13:28 Temperature 98.7 F Pulse Rate 89 Respiratory Rate 20 Blood Pressure 125/80 Pulse Oximetry 100 MDM - Extremity (Nontraumatic) Imaging Data US - DVT: Radiologist's Impression: [address] [id number] ReportSigned Patient: Elroy Larkin RMR#: [id number]: [id number]:[id number]/Sex: 61 / MDate of Service: 01/27/21Loc: EDAccession Number: [id number] Procedure: US perip venous low extrem lt Ordering Provider: Mayra Mccormack D.O. PROCEDURE: US PERIPH VENOUS LOW EXTREM LT INDICATIONS: LEFT LEG SWELLING. HISTORY OF DEEP VEIN THROMBOSIS TECHNIQUE: Real-time imaging, as well as color and pulse Doppler interrogation, were performed of the lower extremity deep veins from the inguinal ligament to the popliteal fossa. COMPARISON: None. FINDINGS: The common femoral, femoral and popliteal veins are normally compressible, and free of intraluminal thrombus. Color and pulse Doppler demonstrate normal phasic intraluminal flow. There is normal augmentation response to distal compression maneuver. IMPRESSION: Negative for deep venous thrombosis. Dictated by: Candido Vega M.D. on 01/27/2021 at 14:00 Approved by: Candido Vega M.D. on 01/27/2021 at 14:01 [facility] Narrative Medical decision making narrative: This is a 61-year-old male with concern for DVT with some localized swelling on the lateral calf of his left lower extremity. Patient's DVT study is negative. Patient did have difficulty getting off the floor and may have had a localized musculoskeletal injury. There is no obvious sign of abscess, infection or other concerning skin changes at this time. Plan for watchful waiting. Patient is comfortable with this plan. Discharge Plan Departure Patient Disposition: Home Clinical Impression: Localized swelling of left lower extremity Activity Restrictions/Additional Instructions: Follow up with your physician for recheck in the next week if you have any additional concerns. Continue home medications as prescribed. Please return if you have any fevers, new redness, increasing swelling, new pain or changing pain, loss of sensation, new weakness, chest pain, shortness of breath or other new or concerning symptoms. Prescriptions: No Action epinephrine [EpiPen] 0.3 mg/0.3 mL auto-injector 0.3 mg IM Q15M PRN (Reason: angioedema) Qty: 2 RF: 0 diphenhydramine HCl [Benadryl] 25 mg capsule 25 mg PO BEDTIME Qty: 60 RF: 0 oxycodone-acetaminophen [Percocet] 5-325 mg tablet 1 tab PO TID PRN (Reason: pain) Qty: 10 RF: 0 metoprolol succinate 25 mg Tablet Extended Release 24 Hr 25 mg PO DAILY Qty: 30 RF: 0 aspirin 81 mg tablet,delayed release (DR/EC) 81 mg PO DAILY Qty: 30 RF: 0 atorvastatin 20 mg tablet 20 mg PO BEDTIME Qty: 30 RF: 0 prednisone 20 mg tablet 40 mg PO DAILY Qty: 8 RF: 0 diphenhydramine HCl [Benadryl Allergy] 25 mg tablet 25 mg PO Q6H PRN (Reason: allergy symptoms) Qty: 20 RF: 0 naproxen [Naprosyn] 500 mg tablet 500 mg PO BID PRN (Reason: pain) Qty: 20 RF: 0 cyclobenzaprine 10 mg tablet 10 mg PO TID PRN (Reason: muscle spasm) Qty: 15 RF: 0 hydrochlorothiazide 25 mg tablet 25 mg PO QAM RF: 0 famotidine 20 mg Tablet 20 mg PO BID RF: 0 Referrals: Adán Holman PA-C [Primary Care Provider] -
== END 2021-01-27 17:18 | disposition home or self-care (01) ==
PROVIDERS: Emergency Provider Emergency Medicine; PCP Physician Assistant Medical
DX: R22.42 Localized swelling, mass and lump, left lower limb (principal)
CPT/HCPCS: 93971; 99283

== ENCOUNTER → 2021-02-03 10:42 | Outpatient (CLI) | payer MEDICARE, MEDICAID, SELFPAY ==
[2018-08-01 09:00] VITALS: PULSE 43; RESP 16; O2SAT 96
[2020-07-01 02:10] VITALS: BMI 31.2
--- NOTE | 2021-02-03 10:51 | DI.US.S_ITS ---
PROCEDURE: US ABDOMEN LIMITED INDICATIONS: RIGHT GROIN PAIN; POSSIBLE HERNIA TECHNIQUE: Real-time focused scanning was performed of the abdomen, with image documentation. COMPARISON: [facility], CT, CT ABDOMEN PELVIS WO CON, 07/25/2020, 15:25. [facility], US, US ABDOMEN LIMITED, 06/30/2020, 23:03. FINDINGS: Scanning is performed at the area of clinical concern involving the right lower quadrant, including with Valsalva maneuver. No findings of hernia can be seen. No masses are seen. IMPRESSION: Negative for hernia or mass at the area of clinical concern. However, it is noted that there is a fluid and fat containing right groin hernia seen by CT 07/25/2020. If it would be helpful for clinical management decision making, please consider a dedicated repeat CT of the pelvis for further evaluation Dictated by: Candido Vega M.D. on 02/03/2021 at 10:31 Approved by: Candido Vega M.D. on 02/03/2021 at 10:33
--- NOTE | 2021-02-03 10:51 | DI.RAD.S_ITS ---
PROCEDURE: XR CERVICAL SPINE 4V OR 5V INDICATIONS: Right lower quadrant pain PANCREATIC LESION/CSPINE TECHNIQUE: 5 views of the cervical spine acquired. COMPARISON: [facility], CR, XR CERVICAL SPINE 2V OR 3V, 04/10/2018, 10:40. FINDINGS: Bones: No fractures or dislocations to the T1 level. Oblique images demonstrate no bony foraminal stenoses. Extensive spine fusion surgery has been performed from C2 into T1. Stable alignment, no evidence of device loosening or disruption. No abnormal subluxation during flexion and extension imaging. Soft tissues: No prevertebral soft tissue swelling. IMPRESSION: Stable appearing postsurgical changes as noted, without subluxation on flexion and extension. Dictated by: Aidan Mccann M.D. on 02/03/2021 at 15:50 Approved by: Aidan Mccann M.D. on 02/03/2021 at 15:51
--- NOTE | 2021-02-03 10:52 | DI.MRI.S_ITS ---
PROCEDURE: MR ABDOMEN WO/W CON INDICATIONS: Right lower quadrant pain PANCREATIC LESION TECHNIQUE: Coronal HASTE, axial 2D FLASH in- and [id number]; axial breath-hold T2 FSE with fat saturation from the hepatic dome to the iliac crests. Oblique coronal thin-slice and radial thick slab HASTE through the biliary system. Dynamic axial VIBE during administration of contrast. Post-contrast coronal VIBE or 2D FLASH with fat saturation from the hepatic dome to the iliac crests. Optional diffusion weighted imaging and ADC may be performed. COMPARISON: [facility], MR, MR ABDOMEN WO CON, 07/01/2020, 14:47. [facility], US, US ABDOMEN LIMITED, 02/03/2021, 11:18. [facility], CT, CT ABDOMEN PELVIS WO CON, 07/25/2020, 15:25. FINDINGS: Image quality: Excellent. Pancreas and biliary system: Prior MRI and CT scanning from June and July of 2020 had identified a pancreatic tail abnormality that measured 3.1 x 2.3 cm, and was thought to potentially represent an area of pancreatic necrosis related to acute pancreatitis. This structure has significantly diminished in size now measuring only 1.8 x 1.5 cm and containing mixed internal signal character predominantly fluid. The mass effect has almost entirely resolved. No new pancreatic mass effect has developed. The appearance is consistent with healing pancreatic necrosis. Solid organs: Liver is normal in size and enhancement. The pattern of prior fatty infiltration prominent within the liver has resolved. Gallbladder appears absent, subsequent to the most recent MR and CT scanning from June and July of last year. Spleen is normal in size and enhancement. No adrenal nodules. Kidneys are normal in size and enhancement, without hydronephrosis. Nodes and vessels: No retroperitoneal or mesenteric adenopathy by size criteria. Aorta and inferior vena cava are normal in size. Bowel and peritoneum: Unenhanced bowel loops are normal in caliber throughout. No free fluid. Lung bases: No basal pleural effusions. Heart size is normal. Bones and soft tissues: No ventral hernias. Bone marrow is normal in overall signal. IMPRESSION: Significant reduction in size of a pancreatic tail abnormality, consistent with healing pancreatic necrosis identified by prior CT and MR scanning in June and July of last year. The dimensions have diminished from 3.1 x 2.3 cm to 1.8 x 1.5 cm currently. No active pancreatitis is currently seen. No new lesion is found. If clinically desired a follow-up additional evaluation by MR scanning could be obtained in 6-8 months and assuming continued improvement no additional follow-up would likely be necessary. The pattern of severe fatty infiltration within the liver has resolved. Dictated by: Aidan Mccann M.D. on 02/03/2021 at 14:28 Approved by: Aidan Mccann M.D. on 02/03/2021 at 14:41
== END ==
PROVIDERS: PCP Internal Medicine; Referring Provider Internal Medicine; Visit Provider Student in an Organized Health Care Education/Training Program
DX: R10.31 Right lower quadrant pain (principal); K86.9 Disease of pancreas, unspecified; R93.5 Abnormal findings on diagnostic imaging of other abdominal regions, including retroperitoneum; Z87.19 Personal history of other diseases of the digestive system; Z98.1 Arthrodesis status
CPT/HCPCS: 72050; 74183; 76705; A9579

== ENCOUNTER → 2021-03-01 11:03 | Outpatient (CLI) | payer MEDICARE, MEDICAID, SELFPAY ==
[2018-08-01 09:00] VITALS: PULSE 43; RESP 16; O2SAT 96
[2020-07-01 02:10] VITALS: BMI 31.2
[2021-03-01 11:48] LABS: Blood Urea Nitrogen 30 mg/dL (9-20); Estimated Glomerular Filt Rate 50.3 mL/min (>60)
--- NOTE | 2021-03-01 11:53 | DI.CT.S_ITS ---
PROCEDURE: CT PELVIS W CON INDICATIONS: Abnormal findings on diagnostic imaging of other a TECHNIQUE: After the administration of oral contrast and intravenous contrast, 5 mm thick sections acquired from the iliac crests to the symphysis. 5 mm thick coronal and sagittal reformats were acquired. For radiation dose reduction, the following was used: automated exposure control, adjustment of mA and/or kV according to patient size. COMPARISON: [facility], CT, CT ABDOMEN PELVIS WO CON, 07/25/2020, 15:25. [facility], MR, MR ABDOMEN WO/W CON, 02/03/2021, 11:33. FINDINGS: Image quality: Excellent. Peritoneum and bowel: Contrast enhanced bowel loops demonstrate normal wall thickness and caliber. No free fluid or air. Colonic diverticula are present. Genitourinary: Bladder wall thickness is normal. Nodes and vessels: No iliac, pelvic, or inguinal adenopathy. Iliac vessels demonstrate normal size and enhancement. Bones: No suspicious bony lesions. Miscellaneous: Small fat containing inguinal hernias are present. There is a trace umbilical fat containing hernia with rectus diastasis measuring approximately 1.2 cm. IMPRESSION: 1. Fat containing bilateral inguinal hernias. 2. Small fat containing umbilical hernia. Dictated by: Anna Herzog M.D. on 03/01/2021 at 16:54 Approved by: Anna Herzog M.D. on 03/01/2021 at 16:56
== END ==
PROVIDERS: PCP Internal Medicine; Referring Provider Student in an Organized Health Care Education/Training Program; Visit Provider Student in an Organized Health Care Education/Training Program
DX: R93.5 Abnormal findings on diagnostic imaging of other abdominal regions, including retroperitoneum (principal); K40.20 Bilateral inguinal hernia, without obstruction or gangrene, not specified as recurrent; K42.9 Umbilical hernia without obstruction or gangrene
CPT/HCPCS: 36415; 72193; 82565; 84520

== ENCOUNTER → 2021-06-03 13:04 | Outpatient (CLI) | payer MEDICARE, MEDICAID, SELFPAY ==
[2018-08-01 09:00] VITALS: PULSE 43; RESP 16; O2SAT 96
[2020-07-01 02:10] VITALS: BMI 31.2
[2021-06-03 13:35] LABS: Add Manual Diff / Slide Review NO; Basophils Absolute Auto 0 /uL (0-100); Basophils Percent Auto 0.5 % (0-2); Eosinophils Absolute Auto 300 /uL (0-450); Eosinophils Percent Auto 2.9 % (2-4); Hematocrit 48.3 % (41-53); Hemoglobin 16.6 g/dL (13.5-17.5); Lymphocytes Absolute Auto 1900 /uL (1100-4500); Lymphocytes Percent Auto 19.2 % (25-40); Mean Corpuscular HGB Conc 34.4 % (30-36); Mean Corpuscular Hemoglobin 32.2 PG (26-34); Mean Corpuscular Volume 93.6 fL (80-100); Monocytes Absolute Auto 900 /uL (0-900); Monocytes Percent Auto 8.7 % (3-14); Neutrophils Absolute Auto 6800 /uL (1500-7000); Neutrophils Percent Auto 68.7 % (50-75); Platelet Count 105 X10^3/uL (150-400); Red Blood Cell Count 5.16 X10^6/uL (4.5-5.9); Red Cell Distribution Width 13.3 % (11.6-14.8); White Blood Cell Count 9.9 X10^3/uL (4.5-11.0)
[2021-06-03 13:40] LABS: INR 1.1 (0.9-1.3); Prothrombin Time 12.3 SECONDS (10.1-12.7)
[2021-06-03 14:02] LABS: Alanine Aminotransferase 35 IU/L (<50); Albumin 4.1 g/dL (3.5-5.0); Albumin Globulin Ratio 1.3 (1.0-2.8); Alkaline Phosphatase 125 U/L (38-126); Aspartate Aminotransferase 39 IU/L (17-59); Bilirubin Total 0.8 mg/dL (0.2-1.3); Blood Urea Nitrogen 14 mg/dL (9-20); Calcium 9.2 mg/dL (8.4-10.2); Carbon Dioxide 23 mmol/L (22-32); Chloride 107 mmol/L (98-107); Estimated Glomerular Filt Rate > 60.0 mL/min (>60); Globulin 3.1 g/dL (1.7-4.1); Glucose 96 mg/dL (80-110); HEMOLYSIS 15 (0-50); Potassium 4.6 mmol/L (3.4-5.1); Sodium 137 mmol/L (137-145); Total Protein 7.2 g/dL (6.3-8.2)
[2021-06-04 07:09] LABS: Alpha Fetoprotein 3.8 ng/mL (0.0-8.3)
== END ==
PROVIDERS: PCP Internal Medicine; Referring Provider Student in an Organized Health Care Education/Training Program; Visit Provider Student in an Organized Health Care Education/Training Program
DX: R93.5 Abnormal findings on diagnostic imaging of other abdominal regions, including retroperitoneum (principal); R18.8 Other ascites; K70.9 Alcoholic liver disease, unspecified; Z87.19 Personal history of other diseases of the digestive system
CPT/HCPCS: 36415; 80053; 82105; 85025; 85610

== ENCOUNTER → 2021-06-23 09:38 | Outpatient (CLI) | payer MEDICARE, MEDICAID, SELFPAY ==
[2018-08-01 09:00] VITALS: PULSE 43; RESP 16; O2SAT 96
[2020-07-01 02:10] VITALS: BMI 31.2
--- NOTE | 2021-06-23 | DI.MRI.S_ITS ---
PROCEDURE: MR ABDOMEN WO/W CON INDICATIONS: Alcoholic liver disease, unspecified TECHNIQUE: Coronal HASTE, axial 2D FLASH in- and [id number]; axial breath-hold T2 FSE. Dynamic axial VIBE during the administration of contrast; post-contrast coronal VIBE or 2D FLASH with fat saturation from the hepatic dome to the iliac crests. Restricted diffusion weighted imaging and ADC performed. COMPARISON: [facility], CT, CT ABDOMEN PELVIS W CON, 06/30/2020, 21:32. [facility], MR, MR ABDOMEN WO/W CON, 02/03/2021, 11:33. FINDINGS: Image quality: Excellent. Lung bases: No basal pleural effusions. Heart size is normal. Gynecomastia. Solid organs: Liver is normal in size. No arterial hyperenhancement observation or washout. No focal lesion. Hepatic steatosis. Gallbladder is not distended. Question of small gallstone. Biliary system is non dilated. A small heterogeneous focus of T2 signal in the tail the pancreas measuring at 2.3 x 1.3 cm, (01/03), previously 2.4 x 1.8 cm, and more remotely 3.1 x 2.3 cm on 07/01/2020. This finding was much less conspicuous on the June 2020 MRI and there is inflammatory change on the remote CT. There is intrinsic T1 hypointense signal and no enhancement or restricted diffusion. This is most consistent with walled-off pancreatic necrosis. No acute peripancreatic fluid collection. No pancreatic mass. No pancreatic ductal dilatation. Spleen is enlarged measuring 16.3 cm. Susceptibility artifact related to calcification adjacent to the spleen. No adrenal nodules. Both kidneys demonstrate normal size and enhancement, without hydronephrosis. Nodes and vessels: No retroperitoneal or mesenteric adenopathy by size criteria. Aorta and inferior vena cava are normal in size. Splenic vein is enlarged. Bowel and peritoneum: Unenhanced bowel loops are normal in caliber. No free fluid. Bones and soft tissues: No ventral hernias. Bone marrow is normal in overall signal. IMPRESSION: 1. 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 2. No focal liver lesion. Hepatic steatosis. 3. Splenomegaly. 4. No biliary or pancreatic ductal dilatation. Dictated by: Rajat Palmer M.D. on 06/24/2021 at 9:57 Approved by: Rajat Palmer M.D. on 06/24/2021 at 10:15
== END ==
PROVIDERS: PCP Internal Medicine; Referring Provider Student in an Organized Health Care Education/Training Program; Visit Provider Student in an Organized Health Care Education/Training Program
DX: R93.5 Abnormal findings on diagnostic imaging of other abdominal regions, including retroperitoneum (principal); K70.9 Alcoholic liver disease, unspecified; K76.0 Fatty (change of) liver, not elsewhere classified; K86.89 Other specified diseases of pancreas; R16.1 Splenomegaly, not elsewhere classified
CPT/HCPCS: 74183; A9579

== ENCOUNTER 2021-07-02 09:56 | Emergency (ER) | payer MEDICARE, MEDICAID, SELFPAY ==
[2018-08-01 09:00] VITALS: PULSE 43; RESP 16; O2SAT 96
[2020-07-01 02:10] VITALS: BMI 31.2
[2021-07-02] VITALS (12 sets, daily range): BP systolic 112–136; BP diastolic 72–88; PULSE 67–91; RESP 14–35; TEMP 36.9; O2SAT 91–98; BMI 32.8
[2021-07-02 10:26] LABS: Add Manual Diff / Slide Review NO; Basophils Absolute Auto 0 /uL (0-100); Basophils Percent Auto 0.5 % (0-2); Eosinophils Absolute Auto 100 /uL (0-450); Eosinophils Percent Auto 1.4 % (2-4); Hematocrit 45.4 % (41-53); Hemoglobin 15.6 g/dL (13.5-17.5); Lymphocytes Absolute Auto 700 /uL (1100-4500); Lymphocytes Percent Auto 10.8 % (25-40); Mean Corpuscular HGB Conc 34.3 % (30-36); Mean Corpuscular Hemoglobin 32.1 PG (26-34); Mean Corpuscular Volume 93.5 fL (80-100); Monocytes Absolute Auto 600 /uL (0-900); Monocytes Percent Auto 8.4 % (3-14); Neutrophils Absolute Auto 5200 /uL (1500-7000); Neutrophils Percent Auto 78.9 % (50-75); Platelet Count 78 X10^3/uL (150-400); Red Blood Cell Count 4.85 X10^6/uL (4.5-5.9); Red Cell Distribution Width 13.2 % (11.6-14.8); White Blood Cell Count 6.6 X10^3/uL (4.5-11.0)
[2021-07-02 10:38] LABS: Alanine Aminotransferase 27 IU/L (<50); Albumin 3.8 g/dL (3.5-5.0); Albumin Globulin Ratio 1.2 (1.0-2.8); Alkaline Phosphatase 117 U/L (38-126); Aspartate Aminotransferase 29 IU/L (17-59); BUN Creatinine Ratio 14.2 (6-22); Bilirubin Total 0.5 mg/dL (0.2-1.3); Blood Urea Nitrogen 16 mg/dL (9-20); Calcium 8.8 mg/dL (8.4-10.2); Carbon Dioxide 26 mmol/L (22-32); Chloride 110 mmol/L (98-107); Estimated Glomerular Filt Rate > 60.0 mL/min (>60); Globulin 3.2 g/dL (1.7-4.1); Glucose 108 mg/dL (80-110); HEMOLYSIS < 15 (0-50); Lipase 91 U/L (23-300); Potassium 4.3 mmol/L (3.4-5.1); Sodium 139 mmol/L (137-145)
--- NOTE | 2021-07-02 10:42 | ED.ABDPAIN ---
HPI - Abdominal Pain General Chief Complaint: Abdominal Pain Stated Complaint: abdominal pain Time Seen by Provider: 07/02/21 10:41 Source: patient Mode of arrival: EMS Limitations: no limitations History of Present Illness HPI narrative: This is a 61-year-old male who comes emergency department with complaint of abdominal pain. Patient states he started having pain about 4:30 a.m. today on the . He said sort of lower abdomen right lower quadrant. It was sort of intermittent seem to get better after a dose of oxycodone, and a GI cocktail which included a gas pill in Maalox. He took a gas pill and Maalox 2 times. He states pain is worse with movement. He did have some pain into his right across his back but does have some chronic back issues. He denies any fevers but he did get clammy and sweaty at 1 point. He has been nauseated but not had any active vomiting. He states he has had normal bowel movements with no black or blood. Until today he had some diarrhea like stools. Patient denies any issues with urination, no dysuria urgency or frequency. No testicular pain. Patient does have a history significant for hepatic renal syndrome he follows with a underwriting specialist Dr. Duffy at either [facility] or [place]. Patient states he takes Lasix occasionally but no other daily medications. He has had a Blanche fundoplication and had his saphenous vein ?obliterated and ?. He uses tobacco. He quit using alcohol approximately a year ago. No illicit drugs. He states that at 1 point his meld score was in the 30s with a bilirubin of 19 and most recently his score was 7 with a bilirubin is 0.7. He has been told there was concern for hernia recently and he had an MRI here at [facility]. Related Data Home Medications Medication Instructions Recorded Confirmed hydrochlorothiazide 25 mg tablet 25 mg PO QAM 06/10/19 07/01/20 famotidine 20 mg tablet 20 mg PO BID 01/10/20 07/01/20 Previous Rx's Medication Instructions Recorded epinephrine 0.3 mg/0.3 mL 0.3 mg IM Q15M PRN #2 each 11/14/19 injection, auto-injector (EpiPen) diphenhydramine HCl 25 mg capsule 25 mg PO BEDTIME #60 cap 11/23/19 (Benadryl) oxycodone-acetaminophen 5 mg-325 1 tab PO TID PRN #10 tab 02/25/20 mg tablet (Percocet) aspirin 81 mg tablet,delayed 81 mg PO DAILY #30 tab 03/17/20 release atorvastatin 20 mg tablet 20 mg PO BEDTIME #30 tab 03/17/20 metoprolol succinate 25 mg 25 mg PO DAILY #30 tab 03/17/20 tablet,extended release 24 hr cyclobenzaprine 10 mg tablet 10 mg PO TID PRN #15 tab 04/17/20 diphenhydramine HCl 25 mg tablet 25 mg PO Q6H PRN #20 tab 04/17/20 (Benadryl Allergy) naproxen 500 mg tablet (Naprosyn) 500 mg PO BID PRN #20 tab 04/17/20 prednisone 20 mg tablet 40 mg PO DAILY #8 tab 04/17/20 meloxicam 7.5 mg tablet (Mobic) 7.5 mg PO BID PRN #10 tab 07/02/21 Allergies Allergy/AdvReac Type Severity Reaction Status Date / Time lisinopril Allergy Severe Swelling Verified 07/02/21 10:02 of Lip/Tongue/Throat citalopram [CITALOPRAM] Allergy Unknown SEIZURES Verified 07/02/21 10:02 hydrocodone [HYDROCODONE] AdvReac Mild N/V Verified 07/02/21 10:02 Review of Systems Review of Systems ROS Unobtainable: All systems reviewed & are unremarkable except as noted in HPI and below Patient History Medical History (Updated 07/02/21 @ 13:34 by Poppy David DO) Alcohol dependence Chronic thoracic spine pain Dyspepsia History of rib fracture History of stroke Hx of angioedema Hypertension Injury of hip, right Intermittent lightheadedness Zoster Surgical History History of eye surgery History of Blanche fundoplication History of splenectomy Status post cervical spinal fusion Family History Father Congestive heart failure Lymph edema Mother Perforated sigmoid colon Brother Stroke Sister Hypertension Social History household members: significant other Smoking Status: Current every day smoker alcohol intake: current Smoking Status: Current every day smoker tobacco type: cigarettes alcohol intake frequency: 3 or more drinks per day Alcohol type: hard liquor Substance Use Type: does not use Exam Narrative Exam Narrative: GENERAL: Alert and oriented x three, male in mild distress. Patient's pain seems to be intermittent. HEENT: Head normocephalic, atraumatic, EOMI, pupils reactive, face symmetric, moist mucous membranes NECK: Supple, full range of motion CARDIOVASCULAR: Regular rate and rhythm without murmurs, rubs or gallops. RESPIRATORY: Breath sounds equal bilaterally, no wheezes rales or rhonchi. ABDOMEN: Soft, mild right upper quadrant tenderness. Patient has intermittent tenderness on palpation of the right lower quadrant but difficult to define of specific location. I am unable to palpate a clear hernia in the abdominal wall or groin. There is no tenderness in the right inguinal area or pudendal.Bowel sounds all 4 quadrants. No guarding or rebound, rigidity, no mass : No CVA tenderness. No testicular pain. EXTREMITIES: Normal range of motion, no clubbing or edema. Neurovascularly intact NEUROLOGICAL: Cranial nerves II through XII grossly intact. Moving all extremities SKIN: Warm, dry, no petechiae, no rashes or lesions. Initial Vital Signs Initial Vital Signs: Vital Signs Pulse Rate 91 H 07/02/21 09:57 Pulse Oximetry 91 07/02/21 09:57 Course Orders Ordered: ED Orders 07/02/21 11:07 CT abdomen pelvis w con Stat Discontinued Medications Morphine Sulfate (Morphine 4 Mg/Ml Inj) 4 mg IV NOW ONE Stop: 07/02/21 12:10 Last Admin: 07/02/21 12:25 Dose: 4 mg Documented by: BELÉN Ondansetron HCl (Ondansetron 4 Mg/2 Ml Inj) 4 mg IV NOW ONE Stop: 07/02/21 12:10 Last Admin: 07/02/21 12:25 Dose: 4 mg Documented by: BELÉN Consultations Consultation #1: Dr. Dowell, and I discussed patient has right-sided pain but seems to be more tender down low less so the right upper quadrant but has some mild right upper quadrant tenderness. He does have some thickening consistent with possible cholecystitis but has normal labs. Patient does have a pancreatic cystic lesion which is still present and does not appear significantly changed from prior imaging. She reviewed his images and notes that he also has some gallstones as well as quite a bit of stool. If patient is feeling more comfortable at this time she would recommend follow-up with the surgical office outpatient with prescription for laxatives. Vital Signs Vital signs: Vital Signs - 8 hr 07/02/21 12:00 07/02/21 12:30 07/02/21 13:00 Pulse Rate 71 70 68 Respiratory Rate 19 17 19 Blood Pressure 118/78 113/75 114/72 Pulse Oximetry 95 94 94 07/02/21 13:30 Pulse Rate 67 Respiratory Rate 19 Blood Pressure 112/74 Pulse Oximetry 96 MDM - Abdominal Pain Lab Data Result diagrams: 07/02/21 10:19 07/02/21 10:19 Labs: Lab Results 07/02/21 07/02/21 Range/Units 10:19 10:19 WBC 6.6 (4.5-11.0) X10^3/uL RBC 4.85 (4.5-5.9) X10^6/uL Hgb 15.6 (13.5-17.5) g/dL Hct 45.4 (41-53) % MCV 93.5 (80-100) fL MCH 32.1 (26-34) PG MCHC 34.3 (30-36) % RDW 13.2 (11.6-14.8) % Plt Count 78 L (150-400) X10^3/uL Neut % (Auto) 78.9 H (50-75) % Lymph % (Auto) 10.8 L (25-40) % Cochran % (Auto) 8.4 (3-14) % Eos % (Auto) 1.4 L (2-4) % Baso % (Auto) 0.5 (0-2) % Neut # (Auto) 5200 (1839-9204) /uL Lymph # (Auto) 700 L (9663-0435) /uL Cochran # (Auto) 600 (0-900) /uL Eos # (Auto) 100 (0-450) /uL Baso # (Auto) 0 (0-100) /uL Sodium 139 (137-145) mmol/L Potassium 4.3 (3.4-5.1) mmol/L Chloride 110 H (98-107) mmol/L Carbon Dioxide 26 (22-32) mmol/L BUN 16 (9-20) mg/dL Creatinine 1.13 (0.66-1.25) mg/dL Estimated GFR > 60.0 (>60) mL/min BUN/Creatinine Ratio 14.2 (6-22) Glucose 108 (80-110) mg/dL Calcium 8.8 (8.4-10.2) mg/dL Total Bilirubin 0.5 (0.2-1.3) mg/dL AST 29 (17-59) IU/L ALT 27 (<50) IU/L Alkaline Phosphatase 117 (38-126) U/L Total Protein 7.0 (6.3-8.2) g/dL Albumin 3.8 (3.5-5.0) g/dL Globulin 3.2 (1.7-4.1) g/dL Albumin/Globulin Ratio 1.2 (1.0-2.8) Lipase 91 (23-300) U/L Point of care testing: Urine Dip Bedside Urine Glucose Negative Bedside Urine Bilirubin - Negative Bedside Urine Ketone +/- 5 Urine Specific [place] 1.025 Bedside Urine Occult Blood - Negative Bedside Urine pH 6.0 Bedside Urine Protein - Negative Bedside Urine Urobilinogen 0.2 Bedside Urine Nitrite - Negative Bedside Urine Leukocytes - Negative Esterase Imaging Data CT scan - abdomen/pelvis: Radiologist's Impression: Launch?[place] [address] CT Scan Report Signed Patient: Elroy Larkin MR#: [id number] : 1960 Acct:[id number] Age/Sex: 61 / M Date of Service: 07/02/21 Loc: ED Accession Number: [id number] ?? Procedure: CT abdomen pelvis w con Ordering Provider: Poppy David D.O. PROCEDURE:? CT ABDOMEN PELVIS W CON ? INDICATIONS:? RLQ pain, ? hernias vs appy.? hx hepatorenal syndrome ? TECHNIQUE:? After the administration of intravenous contrast, axial sections acquired from the lung bases to the pubic symphysis.? Coronal and sagittal reformats were performed.? For radiation dose reduction, the following was used:? automated exposure control, adjustment of mA and/or kV according to patient size.? ? COMPARISON:? [facility], CT, CT ABDOMEN PELVIS WO CON, 07/25/2020, 15:25.? [facility], MR, MR ABDOMEN WO/W CON, 02/03/2021, 11:33.? [facility], CT, CT ABDOMEN PELVIS W CON, 06/10/2019, 12:38.? [facility], CT, CT ABDOMEN PELVIS W CON, 06/30/2020, 21:32. ? FINDINGS: ABDOMEN:? Lung bases:? No acute findings. Heart:? No pericardial effusion. Normal in size.? ? Liver: Normal. Gallbladder:? Mild gallbladder wall thickening.? Cholecystitis is noted.? No pericholecystic inflammation identified. Bile ducts: Normal. Pancreas:? 9 mm cystic appearing lesion involving the tail the pancreas as seen on the recent MRI abdomen dated 02/03/21.? Please see report for follow-up recommendations Spleen:? Enlarged.? There are scattered capsular calcifications. Adrenals: Normal. Kidneys and Ureters:? Normal. Stomach and duodenum:? Small hiatal hernia. Bowel:? Incidental colonic diverticulosis. Appendix is not clearly identified however no suspicious pericecal inflammatory changes are seen. Other:? No free fluid or air.? Abdominal nodes:? Normal. Aorta and IVC: Normal in size.? ? Ventral wall:? Small fat containing periumbilical hernia. ? PELVIS:? ? Bladder:? Mild mural thickening which appears chronic since 07/25/20 Inguinal region: No hernia.? Pelvic nodes: Normal.? ? Bones:? No suspicious bony lesions.? No vertebral body compression fractures. ? ? IMPRESSION:? ? Appendix is not clearly identified however no suspicious pericecal inflammatory changes are seen. ? ?Mild gallbladder wall thickening and cholecystitis.? Please correlate clinically and with LFTs to exclude acute cholecystitis. ? Incidental 9 mm cystic appearing lesion involving the pancreatic tail.? Please see discussion above. ? Splenomegaly ? Small hiatal hernia ? Dictated by: Dileep Weaver M.D. on 07/02/2021 at 11:33 ? ? Approved by: Dileep Weaver M.D. on 07/02/2021 at 11:46?? ECG Data Attestation: I personally reviewed and interpreted this ECG as follows: Prior ECG tracings: available for review Interpretation: Sinus rhythm rate 81 UT 176 QRS 84 and QTC 471 with no acute EKG changes. Patient has prior EKG from 01/16/2020 with no acute changes today. MDM Narrative Medical decision making narrative: This is a 61-year-old male comes emergency department with complaint of right-sided abdominal pain that seems to be more right lower quadrant. On examination he has has some difficulty reproducing his pain with palpation. He has some very mild pain in his right upper quadrant but he states this is not as significant as the lower. Patient does have a history of hepatorenal syndrome. His labs today are reassuring. His imaging shows his appendix not clearly identified but no suspicious inflammatory changes. Has gallbladder wall thickening but once again is not particularly tender in that area and a 9 mm cystic stable appearing lesion in the pancreatic tail. His labs, findings and imaging were reviewed with General surgery who feels appropriate to follow-up outpatient. She also notes some possible gallstones on his CT imaging as well as quite a bit of stool. She recommends outpatient follow-up for the patient with strict return precautions to come to the ER if worsening in the interim. Discharge Plan Departure Patient Disposition: Home Clinical Impression: Cyst of pancreas, Thickening of wall of gallbladder Activity Restrictions/Additional Instructions: Your imaging today shows some thickening of your gallbladder but this is not where your pain seems to be localized to today. There is a cyst which appears chronic and stable on her pancreas as well as having enlarged spleen. It is recommended that you follow-up with General surgery. I spoke with Dr. Dowell and they are happy to follow up with you regarding your gallbladder. She does note under imaging is also quite a bit of stools you may benefit short-term from some laxative to see if this improves your symptoms as well. Prescription for pain medicine was sent to [facility] in [place]. Take as prescribed. Please return for fevers greater 100.4 F worsening abdominal, back or flank pain, persistent vomiting, black or bloody stools, lightheadedness or passing out or other new or concerning symptoms. Prescriptions: New meloxicam [Mobic] 7.5 mg tablet 7.5 mg PO BID PRN (Reason: pain) Qty: 10 RF: 0 No Action epinephrine [EpiPen] 0.3 mg/0.3 mL auto-injector 0.3 mg IM Q15M PRN (Reason: angioedema) Qty: 2 RF: 0 diphenhydramine HCl [Benadryl] 25 mg capsule 25 mg PO BEDTIME Qty: 60 RF: 0 oxycodone-acetaminophen [Percocet] 5-325 mg tablet 1 tab PO TID PRN (Reason: pain) Qty: 10 RF: 0 metoprolol succinate 25 mg Tablet Extended Release 24 Hr 25 mg PO DAILY Qty: 30 RF: 0 aspirin 81 mg tablet,delayed release (DR/EC) 81 mg PO DAILY Qty: 30 RF: 0 atorvastatin 20 mg tablet 20 mg PO BEDTIME Qty: 30 RF: 0 prednisone 20 mg tablet 40 mg PO DAILY Qty: 8 RF: 0 diphenhydramine HCl [Benadryl Allergy] 25 mg tablet 25 mg PO Q6H PRN (Reason: allergy symptoms) Qty: 20 RF: 0 naproxen [Naprosyn] 500 mg tablet 500 mg PO BID PRN (Reason: pain) Qty: 20 RF: 0 cyclobenzaprine 10 mg tablet 10 mg PO TID PRN (Reason: muscle spasm) Qty: 15 RF: 0 hydrochlorothiazide 25 mg tablet 25 mg PO QAM RF: 0 famotidine 20 mg Tablet 20 mg PO BID RF: 0 Referrals: Nataliia Dowell MD [Physician] - Vitor Maravilla MD [Primary Care Provider] -
--- NOTE | 2021-07-02 11:07 | DI.CT.S_ITS ---
PROCEDURE: CT ABDOMEN PELVIS W CON INDICATIONS: RLQ pain, ? hernias vs appy. hx hepatorenal syndrome TECHNIQUE: After the administration of intravenous contrast, axial sections acquired from the lung bases to the pubic symphysis. Coronal and sagittal reformats were performed. For radiation dose reduction, the following was used: automated exposure control, adjustment of mA and/or kV according to patient size. COMPARISON: [facility], CT, CT ABDOMEN PELVIS WO CON, 07/25/2020, 15:25. [facility], MR, MR ABDOMEN WO/W CON, 02/03/2021, 11:33. [facility], CT, CT ABDOMEN PELVIS W CON, 06/10/2019, 12:38. [facility], CT, CT ABDOMEN PELVIS W CON, 06/30/2020, 21:32. FINDINGS: ABDOMEN: Lung bases: No acute findings. Heart: No pericardial effusion. Normal in size. Liver: Normal. Gallbladder: Mild gallbladder wall thickening. Cholecystitis is noted. No pericholecystic inflammation identified. Bile ducts: Normal. Pancreas: 9 mm cystic appearing lesion involving the tail the pancreas as seen on the recent MRI abdomen dated 02/03/21. Please see report for follow-up recommendations Spleen: Enlarged. There are scattered capsular calcifications. Adrenals: Normal. Kidneys and Ureters: Normal. Stomach and duodenum: Small hiatal hernia. Bowel: Incidental colonic diverticulosis. Appendix is not clearly identified however no suspicious pericecal inflammatory changes are seen. Other: No free fluid or air. Abdominal nodes: Normal. Aorta and IVC: Normal in size. Ventral wall: Small fat containing periumbilical hernia. PELVIS: Bladder: Mild mural thickening which appears chronic since 07/25/20 Inguinal region: No hernia. Pelvic nodes: Normal. Bones: No suspicious bony lesions. No vertebral body compression fractures. IMPRESSION: Appendix is not clearly identified however no suspicious pericecal inflammatory changes are seen. Mild gallbladder wall thickening and cholecystitis. Please correlate clinically and with LFTs to exclude acute cholecystitis. Incidental 9 mm cystic appearing lesion involving the pancreatic tail. Please see discussion above. Splenomegaly Small hiatal hernia Dictated by: Dileep Weaver M.D. on 07/02/2021 at 11:33 Approved by: Dileep Weaver M.D. on 07/02/2021 at 11:46
[2021-07-02] MEDS: MORPHINE 4 MG/ML INJ IV (12:25)
[2021-07-02] MEDS: ONDANSETRON 4 MG/2 ML INJ IV (12:25)
== END 2021-07-02 14:02 | disposition home or self-care (01) ==
PROVIDERS: Emergency Provider Emergency Medicine; PCP Internal Medicine
DX: K86.2 Cyst of pancreas (principal); K82.8 Other specified diseases of gallbladder; R11.0 Nausea; R10.9 Unspecified abdominal pain
CPT/HCPCS: 36415; 74177; 80053; 81003; 83690; 85025; 93005; 93010; 96374; 96375; 99284; J2270; J2405

== ENCOUNTER 2021-08-04 11:51 | Emergency (ER) | payer MEDICARE, MEDICAID, SELFPAY ==
[2018-08-01 09:00] VITALS: PULSE 43; RESP 16; O2SAT 96
[2020-07-01 02:10] VITALS: BMI 31.2
[2021-08-04] VITALS (14 sets, daily range): BP systolic 125–150; BP diastolic 78–88; PULSE 69–80; RESP 18–22; TEMP 37.2; O2SAT 94–97; BMI 33.2
[2021-08-04 12:23] LABS: Add Manual Diff / Slide Review NO; Basophils Absolute Auto 0 /uL (0-100); Basophils Percent Auto 0.5 % (0-2); Eosinophils Absolute Auto 100 /uL (0-450); Eosinophils Percent Auto 0.8 % (2-4); Hematocrit 45.7 % (41-53); Hemoglobin 15.7 g/dL (13.5-17.5); Lymphocytes Absolute Auto 900 /uL (1100-4500); Lymphocytes Percent Auto 10.7 % (25-40); Mean Corpuscular HGB Conc 34.4 % (30-36); Mean Corpuscular Hemoglobin 32.2 PG (26-34); Mean Corpuscular Volume 93.6 fL (80-100); Monocytes Absolute Auto 400 /uL (0-900); Monocytes Percent Auto 5.6 % (3-14); Neutrophils Absolute Auto 6600 /uL (1500-7000); Neutrophils Percent Auto 82.4 % (50-75); Platelet Count 61 X10^3/uL (150-400); Red Blood Cell Count 4.89 X10^6/uL (4.5-5.9); Red Cell Distribution Width 13.6 % (11.6-14.8); White Blood Cell Count 7.9 X10^3/uL (4.5-11.0)
[2021-08-04 12:34] LABS: Alanine Aminotransferase 26 IU/L (<50); Albumin 3.8 g/dL (3.5-5.0); Albumin Globulin Ratio 1.2 (1.0-2.8); Alkaline Phosphatase 109 U/L (38-126); Aspartate Aminotransferase 28 IU/L (17-59); BUN Creatinine Ratio 15.6 (6-22); Bilirubin Total 0.6 mg/dL (0.2-1.3); Blood Urea Nitrogen 17 mg/dL (9-20); Carbon Dioxide 23 mmol/L (22-32); Chloride 109 mmol/L (98-107); Estimated Glomerular Filt Rate > 60.0 mL/min (>60); Globulin 3.1 g/dL (1.7-4.1); Glucose 106 mg/dL (80-110); HEMOLYSIS < 15 (0-50); Lipase 87 U/L (23-300); Potassium 4.6 mmol/L (3.4-5.1); Sodium 138 mmol/L (137-145); Total Protein 6.9 g/dL (6.3-8.2)
--- NOTE | 2021-08-04 12:38 | ED_ITS ---
HPI - Abdominal Pain <Felicia Gillette ASSOCIATE PROFESSOR OF LITERATURE - Last Filed: 08/04/21 15:23> General Chief Complaint: Abdominal Pain Stated Complaint: Abd Pain Time Seen by Provider: 08/04/21 12:32 Source: patient Mode of arrival: EMS Limitations: no limitations History of Present Illness HPI narrative: This is a 61-year-old male who comes emergency department with complaint of abdominal pain. Patient states he started having pain about 6:30 a.m. today. He said this is primarily sharp, stabbing, lower right abdomen pain he describes as intermittent. He mentioned that he took a dose of oxycodone/tylenol, a GI cocktail, and a gas pill. He states pain is worse with movement. He denies having any back pain but mentions he does have some chronic back issues. He denies any fevers. He denies nausea but endorses having small episode of acid/bile emesis with the pain spasm this morning. He states he has had diarrhea which comes and goes over the last 2 weeks. Patient denies any issues with urination, no dysuria urgency or frequency. No testicular pain. 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 Duffy . Patient states he takes famotidine as his only medication he denies any blood in his stool or any recent trauma. He has had a Blanche fundoplication, multiple musculoskeletal surgeries, abdominal hernias including 1 right-sided umbilical hernia which he complains as being painful today. He uses tobacco. He quit using alcohol approximately a year ago. No illicit drugs. He states that at 1 point his meld score was in the 30s with a bilirubin of 19 and most recently his score was 7 with a bilirubin is 0.7. He has been told there was concern for hernia recently and he had an MRI here at [facility]. He is also complaining of his chronic neck pain s/p surgeries years ago, and how he ran out of his oxycodone this morning because he took his last 1 for his abdominal pain. He reports he does not have a pain management provider. Severity scale (1-10): 10 Radiation: none Related Data Home Medications Medication Instructions Recorded Confirmed hydrochlorothiazide 25 mg tablet 25 mg PO QAM 06/10/19 07/01/20 famotidine 20 mg tablet 20 mg PO BID 01/10/20 07/01/20 Previous Rx's Medication Instructions Recorded epinephrine 0.3 mg/0.3 mL 0.3 mg IM Q15M PRN #2 each 11/14/19 injection, auto-injector (EpiPen) diphenhydramine HCl 25 mg capsule 25 mg PO BEDTIME #60 cap 11/23/19 (Benadryl) oxycodone-acetaminophen 5 mg-325 1 tab PO TID PRN #10 tab 02/25/20 mg tablet (Percocet) aspirin 81 mg tablet,delayed 81 mg PO DAILY #30 tab 03/17/20 release atorvastatin 20 mg tablet 20 mg PO BEDTIME #30 tab 03/17/20 metoprolol succinate 25 mg 25 mg PO DAILY #30 tab 03/17/20 tablet,extended release 24 hr cyclobenzaprine 10 mg tablet 10 mg PO TID PRN #15 tab 04/17/20 diphenhydramine HCl 25 mg tablet 25 mg PO Q6H PRN #20 tab 04/17/20 (Benadryl Allergy) naproxen 500 mg tablet (Naprosyn) 500 mg PO BID PRN #20 tab 04/17/20 prednisone 20 mg tablet 40 mg PO DAILY #8 tab 04/17/20 meloxicam 7.5 mg tablet (Mobic) 7.5 mg PO BID PRN #10 tab 07/02/21 meloxicam 7.5 mg tablet 7.5 mg PO DAILY #14 tab 08/04/21 Allergies Allergy/AdvReac Type Severity Reaction Status Date / Time lisinopril Allergy Severe Swelling Verified 07/02/21 10:02 of Lip/Tongue/Throat citalopram [CITALOPRAM] Allergy Unknown SEIZURES Verified 07/02/21 10:02 hydrocodone [HYDROCODONE] AdvReac Mild N/V Verified 07/02/21 10:02 Review of Systems <Felicia Gillette [facility] - Last Filed: 08/04/21 15:23> Review of Systems Narrative: General: denies fever, chills Head/Neck: denies headache, neck pain Eyes: denies visual changes, eye pain Cardio: denies chest pain, palpitations Respiratory: denies shortness of breath, cough GI: endorses RLQ abdominal pain, denies nausea or vomiting, endorses diarrhea x2 weeks : denies dysuria, hematuria MSK: Complains of neck pain which is chronic denies joint pain, muscle weakness Skin: denies rash, itching Neuro: denies numbness, tingling Patient History <SIRIA Morataya - Last Filed: 08/04/21 15:23> Medical History (Updated 08/04/21 @ 14:47 by SIRIA Morataya) Alcohol dependence Chronic thoracic spine pain Dyspepsia History of rib fracture History of stroke Hx of angioedema Hypertension Injury of hip, right Intermittent lightheadedness Zoster Surgical History History of eye surgery History of Blanche fundoplication History of splenectomy Status post cervical spinal fusion Family History Father Congestive heart failure Lymph edema Mother Perforated sigmoid colon Brother Stroke Sister Hypertension Social History household members: significant other Smoking Status: Current every day smoker alcohol intake: current Smoking Status: Current every day smoker tobacco type: cigarettes alcohol intake frequency: 0-2 drinks per day Alcohol type: hard liquor Substance Use Type: does not use Exam <SIRIA Morataya - Last Filed: 08/04/21 15:23> Narrative Exam Narrative: Independently reviewed vitals signs and nursing notes. General: Awake, alert, nontoxic, no cardiorespiratory distress Head/Neck: Atraumatic, neck full range of motion Eyes: EOMI, conjunctiva normal Nose: nares patent, no rhinorrhea Mouth/Throat: moist mucus membranes, posterior pharynx normal, no oral lesions Cardio: Regular rate and rhythm, no peripheral edema Respiratory: respirations unlabored without wheezing, stridor, or rales. No r etractions. GI: Abdomen soft, right lower quadrant tenderness. Patient has intermittent tenderness on palpation of the right upper and middle quadrants but difficult to define of specific location. I am unable to palpate a clear hernia in the abdominal wall or groin. There is no tenderness in the right inguinal area or pudendal. Bowel sounds all 4 quadrants. No guarding or rebound, rigidity, no masses. : No CVA tenderness. No testicular pain. MSK: Moves all extremities, neurovascularly intact Skin: Normal capillary refill, no rash Neuro: Normal speech and cognition, normal gait Initial Vital Signs Initial Vital Signs: Vital Signs Temperature 98.9 F 08/04/21 11:40 Pulse Rate 75 08/04/21 11:40 Respiratory Rate 19 08/04/21 11:40 Blood Pressure 138/82 08/04/21 11:40 Pulse Oximetry 96 08/04/21 11:40 <Elroy Byrd DO - Last Filed: 08/04/21 15:44> Initial Vital Signs Initial Vital Signs: Vital Signs Temperature 98.9 F 08/04/21 11:40 Pulse Rate 75 08/04/21 11:40 Respiratory Rate 19 08/04/21 11:40 Blood Pressure 138/82 08/04/21 11:40 Pulse Oximetry 96 08/04/21 11:40 Course <SIRIA Morataya - Last Filed: 08/04/21 15:23> Orders Ordered: ED Orders 08/04/21 12:03 EKG-12 Lead Stat 08/04/21 12:10 Complete Blood Count AUTO DIFF Stat Comprehensive Metabolic Panel Stat Lipase Stat 08/04/21 12:45 CT abdomen pelvis w con Stat Discontinued Medications Ketorolac Tromethamine (Ketorolac 30 Mg/Ml Vial) 30 mg IV NOW ONE Stop: 08/04/21 12:50 Last Admin: 08/04/21 13:04 Dose: 30 mg Documented by: CRICKET Vital Signs Vital signs: Vital Signs - 8 hr 08/04/21 11:40 08/04/21 11:52 08/04/21 11:53 Temperature 98.9 F Pulse Rate 75 80 80 Respiratory Rate 19 Blood Pressure 138/82 138/86 Pulse Oximetry 96 95 96 08/04/21 12:00 08/04/21 12:01 08/04/21 12:30 Temperature Pulse Rate 75 77 70 Respiratory Rate 21 20 20 Blood Pressure 130/88 138/85 Pulse Oximetry 94 94 95 08/04/21 13:00 08/04/21 13:25 08/04/21 13:30 Temperature Pulse Rate 72 71 72 Respiratory Rate 19 22 19 Blood Pressure 139/87 150/86 H 142/84 H Pulse Oximetry 95 97 96 08/04/21 14:00 08/04/21 14:01 08/04/21 14:30 Temperature Pulse Rate 70 73 69 Respiratory Rate 18 22 Blood Pressure 125/78 130/88 Pulse Oximetry 95 96 97 08/04/21 14:59 08/04/21 15:00 Temperature Pulse Rate 70 Respiratory Rate Blood Pressure 127/86 Pulse Oximetry 97 <Elroy Byrd DO - Last Filed: 08/04/21 15:44> Orders Ordered: ED Orders 08/04/21 12:03 EKG-12 Lead Stat 08/04/21 12:10 Complete Blood Count AUTO DIFF Stat Comprehensive Metabolic Panel Stat Lipase Stat 08/04/21 12:45 CT abdomen pelvis w con Stat Discontinued Medications Ketorolac Tromethamine (Ketorolac 30 Mg/Ml Vial) 30 mg IV NOW ONE Stop: 08/04/21 12:50 Last Admin: 08/04/21 13:04 Dose: 30 mg Documented by: CRICKET Vital Signs Vital signs: Vital Signs - 8 hr 08/04/21 11:40 08/04/21 11:52 08/04/21 11:53 Temperature 98.9 F Pulse Rate 75 80 80 Respiratory Rate 19 Blood Pressure 138/82 138/86 Pulse Oximetry 96 95 96 08/04/21 12:00 08/04/21 12:01 08/04/21 12:30 Temperature Pulse Rate 75 77 70 Respiratory Rate 21 20 20 Blood Pressure 130/88 138/85 Pulse Oximetry 94 94 95 08/04/21 13:00 08/04/21 13:25 08/04/21 13:30 Temperature Pulse Rate 72 71 72 Respiratory Rate 19 22 19 Blood Pressure 139/87 150/86 H 142/84 H Pulse Oximetry 95 97 96 08/04/21 14:00 08/04/21 14:01 08/04/21 14:30 Temperature Pulse Rate 70 73 69 Respiratory Rate 18 22 Blood Pressure 125/78 130/88 Pulse Oximetry 95 96 97 08/04/21 14:59 08/04/21 15:00 Temperature Pulse Rate 70 Respiratory Rate Blood Pressure 127/86 Pulse Oximetry 97 MDM - Abdominal Pain <SIRIA Morataya - Last Filed: 08/04/21 15:23> Lab Data Result diagrams: 08/04/21 12:10 08/04/21 12:10 Labs: Lab Results 08/04/21 08/04/21 Range/Units 12:10 12:10 WBC 7.9 (4.5-11.0) X10^3/uL RBC 4.89 (4.5-5.9) X10^6/uL Hgb 15.7 (13.5-17.5) g/dL Hct 45.7 (41-53) % MCV 93.6 (80-100) fL MCH 32.2 (26-34) PG MCHC 34.4 (30-36) % RDW 13.6 (11.6-14.8) % Plt Count 61 L (150-400) X10^3/uL Neut % (Auto) 82.4 H (50-75) % Lymph % (Auto) 10.7 L (25-40) % Chambers % (Auto) 5.6 (3-14) % Eos % (Auto) 0.8 L (2-4) % Baso % (Auto) 0.5 (0-2) % Neut # (Auto) 6600 (3623-0871) /uL Lymph # (Auto) 900 L (9356-7184) /uL Chambers # (Auto) 400 (0-900) /uL Eos # (Auto) 100 (0-450) /uL Baso # (Auto) 0 (0-100) /uL Sodium 138 (137-145) mmol/L Potassium 4.6 (3.4-5.1) mmol/L Chloride 109 H (98-107) mmol/L Carbon Dioxide 23 (22-32) mmol/L BUN 17 (9-20) mg/dL Creatinine 1.09 (0.66-1.25) mg/dL Estimated GFR > 60.0 (>60) mL/min BUN/Creatinine Ratio 15.6 (6-22) Glucose 106 (80-110) mg/dL Calcium 9.0 (8.4-10.2) mg/dL Total Bilirubin 0.6 (0.2-1.3) mg/dL AST 28 (17-59) IU/L ALT 26 (<50) IU/L Alkaline Phosphatase 109 (38-126) U/L Total Protein 6.9 (6.3-8.2) g/dL Albumin 3.8 (3.5-5.0) g/dL Globulin 3.1 (1.7-4.1) g/dL Albumin/Globulin Ratio 1.2 (1.0-2.8) Lipase 87 (23-300) U/L Imaging Data CT scan - abdomen/pelvis: Radiologist's Impression: [place] [id number] [place] [id number] Scan ReportSigned Patient: Elroy Larkin RMR#: [id number]: 1960Acct:[id number]/Sex: 61 / MDate of Service: 08/04/21Loc: EDAccession Number: [id number] Procedure: CT abdomen pelvis w con Ordering Provider: Felicia Gillette PROCEDURE: CT ABDOMEN PELVIS W CON INDICATIONS: RLQ abdominal pain and Rt umbilical hernia pain, diarrhea TECHNIQUE: After the administration of IV contrast, axial sections were acquired from the lung bases to the pubic symphysis. Coronal and sagittal reformats were performed. For radiation dose reduction, the following was used: automated exposure control, adjustment of mA and/or kV according to patient size. COMPARISON: [facility], CT, CT ABDOMEN PELVIS W CON, 06/30/2020, 21:32. [facility], MR, MR ABDOMEN WO/W CON, 06/23/2021, 10:11. [facility], CT, CT ABDOMEN PELVIS W CON, 07/02/2021, 11:19. FINDINGS: Image quality: Excellent. Lung bases: There is mild scarring and atelectasis redemonstrated in the lung bases. Heart: Heart is normal in size. ABDOMEN: Liver: No discrete hepatic mass. Gallbladder: The gallbladder is distended with multiple dependent calcified gallstones in the region of the gallbladder neck. No definite gallbladder wall thickening or pericholecystic fluid. Biliary ducts: There is mild central intrahepatic and extrahepatic biliary ductal dilatation. The common bile duct measures up to approximately 1 cm in diameter. No calcified common duct stone visualized. Pancreas: No pancreatic duct dilatation. There is a small cystic lesion redemonstrated within the tail of the pancreas measuring up to 1.1 x 0.7 cm in transverse dimension which appears progressively decreased in size compared to the prior studies. There is also progressively decreased fat stranding adjacent to the pancreatic tail and left adrenal gland. 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 Spleen: The spleen is enlarged, measuring up to 15.5 cm. Adrenal Glands: No discrete adrenal nodules. There is mild fat stranding adjacent to the left adrenal gland consistent with sequelae of prior pancreatitis. Kidneys and Ureters: No hydronephrosis. Stomach and Bowel: There are postsurgical changes redemonstrated status post Blanche fundoplication. There are a few scattered air-fluid levels within the distal loops of small bowel in the right lower quadrant without associated focal transition point or abnormal dilatation to suggest obstruction. Findings are suggestive of an ileus or gastroenteritis. The appendix is not discretely well visualized but there are no pericecal inflammatory changes to suggest appendicitis. There is colonic div erticulosis without acute diverticulitis. Peritoneum: No abnormal intraperitoneal fluid. No free air. Ventral Wall: No hernia. Abdominal Nodes: No retroperitoneal or mesenteric adenopathy by size criteria. Vessels: Aorta and inferior vena cava are normal in size. PELVIS: Pelvic Organs: Unremarkable. Bladder: Unremarkable. Pelvic Nodes: No enlarged lymph nodes. Miscellaneous: No inguinal hernias are seen. Bones: Unremarkable. IMPRESSION: 1. Cholelithiasis with gallbladder distention but no wall thickening or pericholecystic fluid. If there is clinical suspicion for cholecystitis, further evaluation may be obtained with ultrasound. 2. Intra and extrahepatic biliary ductal dilatation without a calcified common duct stone identified. Recommend correlation clinically for possible biliary obstruction including with laboratory values. If clinically indicated, further evaluation may be obtained with an MRCP. 3. Small cystic lesion within the pancreatic tail appears progressively decreased in size compared to the prior studies. There is also mild residual fat stranding adjacent to the pancreatic tail which is also progressively decreased. The findings are again consistent with a small region of walled-off necrosis related to prior necrotizing pancreatitis. 4. Nonspecific splenomegaly redemonstrated. 5. Colonic diverticulosis without acute diverticulitis. Dictated by: Jesse Card M.D. on 08/04/2021 at 13:49 Approved by: Jesse Card M.D. on 08/04/2021 at 14:01 MDM Narrative Medical decision making narrative: This is a 61-year-old male who comes emergency department with complaint of right lower quadrant abdominal pain. Patient does have a history of hepatorenal syndrome. On his last emergency department visit for similar complaints 07/02/2021, he was to follow-up with general surgery as an outpatient, and patient did not do that because his symptoms improved. His labs today are reassuring, he does not have a leukocytosis, his lipase was 87, and notably his platelet count was 61 and does not appear diluted, patient has no signs or symptoms of bleeding, he does not mention any recent bruising or melena in stool.. His total bilirubin was 0.6, liver enzymes were within normal limits. His imaging shows no pancreatic duct dilatation. There is a small cystic lesion redemonstrated within the tail of the pancreas measuring up to 1.1 x 0.7 cm in transverse dimension which appears progressively decreased in size compared to the prior studies. The impression on his CT showed cholelithiasis with gallbladder distention but no wall thickening or pericholecystic cystic fluid. He does have intra and extrahepatic biliary ductal dilation without a common duct stone identified. Nonspecific splenomegaly redemonstrated, and colonic diverticulosis without acute diverticulitis. He was given Toradol today with marked improvement in his pain and symptoms. I recommend outpatient follow-up for the patient with strict return precautions to come to the ER if worsening in the interim. <Elroy Byrd DO - Last Filed: 08/04/21 15:44> Lab Data Labs: Lab Results 08/04/21 08/04/21 Range/Units 12:10 12:10 WBC 7.9 (4.5-11.0) X10^3/uL RBC 4.89 (4.5-5.9) X10^6/uL Hgb 15.7 (13.5-17.5) g/dL Hct 45.7 (41-53) % MCV 93.6 (80-100) fL MCH 32.2 (26-34) PG MCHC 34.4 (30-36) % RDW 13.6 (11.6-14.8) % Plt Count 61 L (150-400) X10^3/uL Neut % (Auto) 82.4 H (50-75) % Lymph % (Auto) 10.7 L (25-40) % Chambers % (Auto) 5.6 (3-14) % Eos % (Auto) 0.8 L (2-4) % Baso % (Auto) 0.5 (0-2) % Neut # (Auto) 6600 (5389-6447) /uL Lymph # (Auto) 900 L (7643-1357) /uL Chambers # (Auto) 400 (0-900) /uL Eos # (Auto) 100 (0-450) /uL Baso # (Auto) 0 (0-100) /uL Sodium 138 (137-145) mmol/L Potassium 4.6 (3.4-5.1) mmol/L Chloride 109 H (98-107) mmol/L Carbon Dioxide 23 (22-32) mmol/L BUN 17 (9-20) mg/dL Creatinine 1.09 (0.66-1.25) mg/dL Estimated GFR > 60.0 (>60) mL/min BUN/Creatinine Ratio 15.6 (6-22) Glucose 106 (80-110) mg/dL Calcium 9.0 (8.4-10.2) mg/dL Total Bilirubin 0.6 (0.2-1.3) mg/dL AST 28 (17-59) IU/L ALT 26 (<50) IU/L Alkaline Phosphatase 109 (38-126) U/L Total Protein 6.9 (6.3-8.2) g/dL Albumin 3.8 (3.5-5.0) g/dL Globulin 3.1 (1.7-4.1) g/dL Albumin/Globulin Ratio 1.2 (1.0-2.8) Lipase 87 (23-300) U/L Discharge Plan Departure Patient Disposition: Home Clinical Impression: Diverticulosis Cholelithiasis Qualifiers: Cholelithiasis location: gallbladder Cholecystitis presence: without cholecystitis Biliary obstruction: without biliary obstruction Qualified Code(s): K80.20 - Calculus of gallbladder without cholecystitis without obstruction Instructions: DI for Gallstones Activity Restrictions/Additional Instructions: *You have been diagnosed with gallstones. There are no signs appendicitis, diverticulosis, cholecystitis, kidney stone, bowel obstruction, or other abdominal problem present on your CT scan. Please follow-up with Dr. Dowell at [facility] office for further workup like of your abdominal complaints. If you do not follow-up there, okay to see Dr. Mathew, your GI doctor, or follow-up with your PCP for your chronic pain issues. *What to do: *Please continue to take your regular medications as directed. [x ] New medication prescriptions sent to your pharmacy: [ meloxicam] [ ] New medication written as a paper prescription [ ] No new medications given *Please follow up with your primary care provider in 2-3 days, call for an appointment. Let them know you were seen in the Emergency Department and that we ask that you be seen in follow up. We will electronically transmit a record of today's note if your PCP is in our system *If you do not have a primary care provider please contact the [facility] Resource line at [phone]. They will ask some questions about your medical history and help get you set up with a doctor in the community. *Return to Emergency Department if you should have any new, worsening or concerning symptoms, such as [fever greater than 101F, chills, worsening pain, persistent vomiting or other bothersome symptoms] What type of diet is recommended for a patient with cholelithiasis? A healthy balanced diet consists of: Eat healthy fats, like fish oil and olive oil, to help your gallbladder contract and empty on a regular basis. Avoid unhealthy fats, like those often found in desserts and fried foods. Plenty of fruit and vegetables. ... Plenty of starchy carbohydrates. ... Some milk and dairy products (2-3 portions per day). ... Some meat, fish, eggs and alternatives such as beans and pulses. Limited amounts of foods high in fats and sugars. ... Make sure your diet is high in fiber. Prescriptions: New meloxicam 7.5 mg tablet 7.5 mg PO DAILY Qty: 14 RF: 0 No Action epinephrine [EpiPen] 0.3 mg/0.3 mL auto-injector 0.3 mg IM Q15M PRN (Reason: angioedema) Qty: 2 RF: 0 diphenhydramine HCl [Benadryl] 25 mg capsule 25 mg PO BEDTIME Qty: 60 RF: 0 oxycodone-acetaminophen [Percocet] 5-325 mg tablet 1 tab PO TID PRN (Reason: pain) Qty: 10 RF: 0 metoprolol succinate 25 mg Tablet Extended Release 24 Hr 25 mg PO DAILY Qty: 30 RF: 0 aspirin 81 mg tablet,delayed release (DR/EC) 81 mg PO DAILY Qty: 30 RF: 0 atorvastatin 20 mg tablet 20 mg PO BEDTIME Qty: 30 RF: 0 prednisone 20 mg tablet 40 mg PO DAILY Qty: 8 RF: 0 diphenhydramine HCl [Benadryl Allergy] 25 mg tablet 25 mg PO Q6H PRN (Reason: allergy symptoms) Qty: 20 RF: 0 naproxen [Naprosyn] 500 mg tablet 500 mg PO BID PRN (Reason: pain) Qty: 20 RF: 0 cyclobenzaprine 10 mg tablet 10 mg PO TID PRN (Reason: muscle spasm) Qty: 15 RF: 0 meloxicam [Mobic] 7.5 mg tablet 7.5 mg PO BID PRN (Reason: pain) Qty: 10 RF: 0 hydrochlorothiazide 25 mg tablet 25 mg PO QAM RF: 0 famotidine 20 mg Tablet 20 mg PO BID RF: 0 Referrals: Nataliia Dowell MD [Physician] - 5-7 days Vitor Maravilla MD [Primary Care Provider] - <Elroy Byrd, - Last Filed: 08/04/21 15:44> [facility] Dr Byrd Co-Sign Statement: I was available for consultation during this patient's emergency department visit. This chart is signed by myself for administrative purposes only. I did not have direct contact with this patient during this visit. They were seen independently by the [facility].
--- NOTE | 2021-08-04 12:45 | DI.CT.S_ITS ---
PROCEDURE: CT ABDOMEN PELVIS W CON INDICATIONS: RLQ abdominal pain and Rt umbilical hernia pain, diarrhea TECHNIQUE: After the administration of IV contrast, axial sections were acquired from the lung bases to the pubic symphysis. Coronal and sagittal reformats were performed. For radiation dose reduction, the following was used: automated exposure control, adjustment of mA and/or kV according to patient size. COMPARISON: [facility], CT, CT ABDOMEN PELVIS W CON, 06/30/2020, 21:32. [facility], MR, MR ABDOMEN WO/W CON, 06/23/2021, 10:11. [facility], CT, CT ABDOMEN PELVIS W CON, 07/02/2021, 11:19. FINDINGS: Image quality: Excellent. Lung bases: There is mild scarring and atelectasis redemonstrated in the lung bases. Heart: Heart is normal in size. ABDOMEN: Liver: No discrete hepatic mass. Gallbladder: The gallbladder is distended with multiple dependent calcified gallstones in the region of the gallbladder neck. No definite gallbladder wall thickening or pericholecystic fluid. Biliary ducts: There is mild central intrahepatic and extrahepatic biliary ductal dilatation. The common bile duct measures up to approximately 1 cm in diameter. No calcified common duct stone visualized. Pancreas: No pancreatic duct dilatation. There is a small cystic lesion redemonstrated within the tail of the pancreas measuring up to 1.1 x 0.7 cm in transverse dimension which appears progressively decreased in size compared to the prior studies. There is also progressively decreased fat stranding adjacent to the pancreatic tail and left adrenal gland. 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 Spleen: The spleen is enlarged, measuring up to 15.5 cm. Adrenal Glands: No discrete adrenal nodules. There is mild fat stranding adjacent to the left adrenal gland consistent with sequelae of prior pancreatitis. Kidneys and Ureters: No hydronephrosis. Stomach and Bowel: There are postsurgical changes redemonstrated status post Blanche fundoplication. There are a few scattered air-fluid levels within the distal loops of small bowel in the right lower quadrant without associated focal transition point or abnormal dilatation to suggest obstruction. Findings are suggestive of an ileus or gastroenteritis. The appendix is not discretely well visualized but there are no pericecal inflammatory changes to suggest appendicitis. There is colonic diverticulosis without acute diverticulitis. Peritoneum: No abnormal intraperitoneal fluid. No free air. Ventral Wall: No hernia. Abdominal Nodes: No retroperitoneal or mesenteric adenopathy by size criteria. Vessels: Aorta and inferior vena cava are normal in size. PELVIS: Pelvic Organs: Unremarkable. Bladder: Unremarkable. Pelvic Nodes: No enlarged lymph nodes. Miscellaneous: No inguinal hernias are seen. Bones: Unremarkable. IMPRESSION: 1. Cholelithiasis with gallbladder distention but no wall thickening or pericholecystic fluid. If there is clinical suspicion for cholecystitis, further evaluation may be obtained with ultrasound. 2. Intra and extrahepatic biliary ductal dilatation without a calcified common duct stone identified. Recommend correlation clinically for possible biliary obstruction including with laboratory values. If clinically indicated, further evaluation may be obtained with an MRCP. 3. Small cystic lesion within the pancreatic tail appears progressively decreased in size compared to the prior studies. There is also mild residual fat stranding adjacent to the pancreatic tail which is also progressively decreased. The findings are again consistent with a small region of walled-off necrosis related to prior necrotizing pancreatitis. 4. Nonspecific splenomegaly redemonstrated. 5. Colonic diverticulosis without acute diverticulitis. Dictated by: Jesse Card M.D. on 08/04/2021 at 13:49 Approved by: Jesse Card M.D. on 08/04/2021 at 14:01
[2021-08-04] MEDS: KETOROLAC 30 MG/ML VIAL IV (13:04)
== END 2021-08-04 15:07 | disposition home or self-care (01) ==
PROVIDERS: Emergency Medicine; Emergency Provider Nurse Practitioner Critical Care Medicine; PCP Internal Medicine
DX: K80.10 Calculus of gallbladder with chronic cholecystitis without obstruction (principal); K57.90 Diverticulosis of intestine, part unspecified, without perforation or abscess without bleeding; R10.9 Unspecified abdominal pain
CPT/HCPCS: 36415; 74177; 80053; 83690; 85025; 93005; 93010; 96374; 99284; J1885

== ENCOUNTER 2021-08-27 04:09 | Observation (INO) | payer MEDICARE, MEDICAID, SELFPAY ==
[2018-08-01 09:00] VITALS: PULSE 43; RESP 16; O2SAT 96
[2020-07-01 02:10] VITALS: BMI 31.2
[2021-08-27] VITALS (31 sets, daily range): BP systolic 102–169; BP diastolic 53–90; PULSE 67–102; RESP 11–20; TEMP 36.3–37.1; O2SAT 92–99; BMI 35.3
--- NOTE | 2021-08-27 | PATH_ITS ---
[facility] Accession Number: [id number] . 01 Material submitted: . gallbladder - GALLBLADDER . 02 Diagnosis: Gallbladder, Cholecystectomy: Chronic active cholecystitis. No choleliths identified. Negative for dysplasia and malignancy. MRV 08/31/2021 1221 Local . 02 Electronically signed: . Felicia Painter MD, Pathologist NPI- [id number] . 01 Gross description: . The specimen is received in formalin, labeled gallbladder, and consists of a 7.0 x 3.0 x 2.8 cm previously disrupted gallbladder with a disrupted cystic duct measuring 0.6 cm in diameter. The serosa is barry-pink and smooth to wrinkled. Opening reveals minimal green viscous bile with no choleliths identified. The mucosa is barry-pink and velvety. The wall thickness measures 0.3 cm. Dehydrogenation Supervisor sections are submitted, to include the en face cystic duct margin (blue), in cassette A1. ([id number]) /R 08/28/2021 1723 Local . 02 Pathologist provided ICD-10: K81.9 . 02 CPT . 689189 Performed at: 01 [facility] Cytology [address], [place], [place] [id number] MD Jesse Kingsley MD Phone: [phone] Performed at: 02 [facility] [address] [place], [place] [id number] MD Felicia Painter MD Phone: [phone]
--- NOTE | 2021-08-27 04:19 | ED_ITS ---
HPI - Abdominal Pain General Chief Complaint: Abdominal Pain Stated Complaint: abdominal pain Time Seen by Provider: 08/27/21 04:10 History of Present Illness HPI narrative: 61-year-old male smoker with history of extensive alcohol abuse, liver disease, presents by EMS for evaluation of severe, sudden lower abdominal pain that woke him up just prior to arrival. He states he had a normal meal and went to bed feeling in his normal state of health and awoke with severe, 10 on a 10 periumbilical and right-sided abdominal pain. The pain is significantly worse with motion and palpation and improves with rest as well as the paramedics fentanyl 100 micro g. He denies fever or chills. He has been nauseated but denies vomiting. He denies any change in bowel habits and has had no urinary complaints. Related Data Home Medications Medication Instructions Recorded Confirmed hydrochlorothiazide 25 mg tablet 25 mg PO QAM 06/10/19 07/01/20 famotidine 20 mg tablet 20 mg PO BID 01/10/20 07/01/20 Previous Rx's Medication Instructions Recorded epinephrine 0.3 mg/0.3 mL 0.3 mg IM Q15M PRN #2 each 11/14/19 injection, auto-injector (EpiPen) diphenhydramine HCl 25 mg capsule 25 mg PO BEDTIME #60 cap 11/23/19 (Benadryl) oxycodone-acetaminophen 5 mg-325 1 tab PO TID PRN #10 tab 02/26/20 mg tablet (Percocet) aspirin 81 mg tablet,delayed 81 mg PO DAILY #30 tab 03/17/20 release atorvastatin 20 mg tablet 20 mg PO BEDTIME #30 tab 03/17/20 metoprolol succinate 25 mg 25 mg PO DAILY #30 tab 03/17/20 tablet,extended release 24 hr cyclobenzaprine 10 mg tablet 10 mg PO TID PRN #15 tab 04/17/20 diphenhydramine HCl 25 mg tablet 25 mg PO Q6H PRN #20 tab 04/17/20 (Benadryl Allergy) naproxen 500 mg tablet (Naprosyn) 500 mg PO BID PRN #20 tab 04/17/20 prednisone 20 mg tablet 40 mg PO DAILY #8 tab 04/17/20 meloxicam 7.5 mg tablet (Mobic) 7.5 mg PO BID PRN #10 tab 07/02/21 meloxicam 7.5 mg tablet 7.5 mg PO DAILY #14 tab 08/04/21 Allergies Allergy/AdvReac Type Severity Reaction Status Date / Time lisinopril Allergy Severe Swelling Verified 07/02/21 10:02 of Lip/Tongue/Throat citalopram [CITALOPRAM] Allergy Unknown SEIZURES Verified 07/02/21 10:02 hydrocodone [HYDROCODONE] AdvReac Mild N/V Verified 07/02/21 10:02 Review of Systems Review of Systems Narrative: GENERAL: Denies chills, fatigue, malaise, fever, sweats. HEENT: Denies sinus pain, ear pain, sore throat, difficulty swallowing, dizziness. RESPIRATORY: Denies dyspnea, cough, wheezing, hemoptysis, sputum. CARDIOVASCULAR: Denies chest pain, palpitations, orthopnea, edema, GASTROINTESTINAL: See HPI : Denies dysuria, frequency, incontinence, hematuria, urinary retention. MUSCULOSKELETAL: denies weakness, joint pain, or bony pain SKIN: Denies rash, skin lesions, or other NEUROLOGIC: Denies weakness, headache, numbness, change in speech, confusion, seizures, incoordination. PSYCHIATRIC: No concerning psychosocial issues. 12 point review of systems is negative except for those stated above Patient History Medical History (Updated 08/27/21 @ 06:09 by Devang Mccollum DO) Alcohol dependence Chronic thoracic spine pain Dyspepsia History of rib fracture History of stroke Hx of angioedema Hypertension Injury of hip, right Intermittent lightheadedness Zoster Surgical History History of eye surgery History of Blanche fundoplication History of splenectomy Status post cervical spinal fusion Family History Father Congestive heart failure Lymph edema Mother Perforated sigmoid colon Brother Stroke Sister Hypertension Social History household members: significant other Smoking Status: Current every day smoker alcohol intake: current Smoking Status: Current every day smoker tobacco type: cigarettes alcohol intake frequency: 0-2 drinks per day Alcohol type: hard liquor Substance Use Type: does not use Exam Narrative Exam Narrative: GENERAL: [61] year old patient appears stated age. Well- developed patient, in mild distress. HEAD: Atraumatic. Normocephalic. EYES: Pupils equal round and reactive. Extraocular motions intact. No scleral icterus. No injection or drainage. ENT: Nose without bleeding, purulent drainage. Throat without erythema, tonsillar hypertrophy or exudate. Airway patent. NECK: Trachea midline. Non tender CARDIOVASCULAR: Regular rate and rhythm without murmurs, gallops, or rubs. RESPIRATORY: Clear to auscultation. Breath sounds equal bilaterally. No wheezes, rales, or rhonchi. GASTROINTESTINAL: Abdomen soft, mild right-sided tenderness, nondistended. EXTREMITIES: No edema or joint tenderness. BACK: Nontender without deformity or crepitance. No flank tenderness. NEURO: AOx3. 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) Stat Hydrocodone Bitart/Acetaminophen (Hydrocodone/Acet 5/325 Tablet) 2 tab PO Q4HR PRN PRN Reason: Pain, Severe (7-10) Celecoxib (Celecoxib 200 Mg Capsule) 200 mg PO BID MIGUEL Gabapentin (Gabapentin 300 Mg Capsule) 300 mg PO TID MIGUEL Lactated Ringer's (Lactated Ringers) 1,000 mls @ 100 mls/hr IV CONT MIGUEL Morphine Sulfate (Morphine 2 Mg/Ml Inj) 2 mg IV Q2HR PRN PRN Reason: Pain, Severe (7-10) Discontinued Medications Cefazolin Sodium (Cefazolin 1 Gm Vial) 2 gm IV NOW ONE Stop: 08/27/21 05:47 Hydromorphone HCl (Hydromorphone 1 Mg Inj) 1 mg IV NOW ONE Stop: 08/27/21 05:26 Last Admin: 08/27/21 05:35 Dose: 1 mg Documented by: Sodium Chloride (Normal Saline 0.9%) 1,000 mls @ 1,000 mls/hr IV BOLUS ONE Stop: 08/27/21 05:11 Last Admin: 08/27/21 04:42 Dose: 1,000 mls/hr Documented by: Ondansetron HCl (Ondansetron 4 Mg/2 Ml Inj) 4 mg IV NOW ONE Stop: 08/27/21 05:26 Last Admin: 08/27/21 05:35 Dose: 4 mg Documented by: Scopolamine (Scopolamine 1 Patch) 1 patch TOP NOW ONE Stop: 08/27/21 05:47 Consultations Consultation #1: Dr. Dowell happy to accept patient on her service. Vital Signs Vital signs: Vital Signs - 8 hr 08/27/21 04:05 Temperature 98.3 F Pulse Rate 85 Respiratory Rate 18 Blood Pressure 140/87 Pulse Oximetry 96 MDM - Abdominal Pain Lab Data Result diagrams: 08/27/21 04:15 08/27/21 04:15 Labs: Lab Results 08/27/21 08/27/21 08/27/21 Range/Units 04:15 04:15 05:10 WBC 8.4 (4.5-11.0) X10^3/uL RBC 4.80 (4.5-5.9) X10^6/uL Hgb 15.6 (13.5-17.5) g/dL Hct 44.4 (41-53) % MCV 92.5 (80-100) fL MCH 32.5 (26-34) PG MCHC 35.1 (30-36) % RDW 13.5 (11.6-14.8) % Plt Count 96 L (150-400) X10^3/uL Neut % (Auto) 69.4 (50-75) % Lymph % (Auto) 17.5 L (25-40) % Glynn % (Auto) 9.1 (3-14) % Eos % (Auto) 3.6 (2-4) % Baso % (Auto) 0.4 (0-2) % Neut # (Auto) 5800 (1984-6817) /uL Lymph # (Auto) 1500 (0655-8511) /uL Glynn # (Auto) 800 (0-900) /uL Eos # (Auto) 300 (0-450) /uL Baso # (Auto) 0 (0-100) /uL Sodium 138 (137-145) mmol/L Potassium 4.3 (3.4-5.1) mmol/L Chloride 109 H (98-107) mmol/L Carbon Dioxide 23 (22-32) mmol/L BUN 20 (9-20) mg/dL Creatinine 1.36 H (0.66-1.25) mg/dL Estimated GFR 53.3 L (>60) mL/min BUN/Creatinine Ratio 14.7 (6-22) Glucose 119 H (80-110) mg/dL Calcium 8.8 (8.4-10.2) mg/dL Total Bilirubin 0.6 (0.2-1.3) mg/dL AST 33 (17-59) IU/L ALT 30 (<50) IU/L Alkaline Phosphatase 110 (38-126) U/L Total Protein 7.0 (6.3-8.2) g/dL Albumin 3.8 (3.5-5.0) g/dL Globulin 3.2 (1.7-4.1) g/dL Albumin/Globulin Ratio 1.2 (1.0-2.8) Lipase 146 (23-300) U/L SARS-CoV-2 (PCR) Negative (Negative) Imaging Data US - abdomen: Radiologist's Impression: Gallbladder sludge and a 2.2 cm stone in the gallbladder neck with positive Judd sign, currently no thickening or pericholecystic fluid Discharge Plan Departure Patient Disposition: Admitted as Observation Clinical Impression: Gall bladder pain Admit Date/Time: 08/27/21 05:44 Admit Provider: Nataliia Dowell
--- NOTE | 2021-08-27 04:19 | DI.RAD.S_ITS ---
PROCEDURE: XR ACUTE ABDOMEN SERIES INDICATIONS: severe abdominal pain TECHNIQUE: One view chest and two views of the abdomen were acquired. COMPARISON: [facility], US, US ABDOMEN LIMITED, 08/27/2021, 4:45. [facility], CT, CT ABDOMEN PELVIS W CON, 08/04/2021, 13:21. [facility], CR, XR CHEST 1V, 03/16/2020, 18:13. FINDINGS: Surgical changes and devices: None. Chest: Diffuse interstitial prominence. No focal consolidation. Heart size is normal. No pleural effusions. No pneumoperitoneum. Abdomen: Bowel gas pattern is nonobstructive. No suspicious calcifications. Visualized solid organ contours appear normal. Bones: No suspicious bony lesions. Degenerative disc disease in the lower lumbar spine. IMPRESSION: Nonobstructive bowel gas pattern. No significant discrepancy with the production supervisor off shift radiology preliminary report. Dictated by: Sera Kennedy M.D. on 08/27/2021 at 8:28 Approved by: Sera Kennedy M.D. on 08/27/2021 at 8:30
--- NOTE | 2021-08-27 04:19 | DI.US.S_ITS ---
PROCEDURE: US ABDOMEN LIMITED INDICATIONS: severe RUQ Pain, known GB stones TECHNIQUE: Real-time scanning was performed of the abdominal and retroperitoneal organs, with image documentation. COMPARISON: [facility], CT, CT ABDOMEN PELVIS W CON, 08/04/2021, 13:21. [facility], US, US ABDOMEN LIMITED, 02/03/2021, 11:18. FINDINGS: Liver is normal in size and demonstrates diffuse increased echotexture. There is a 2.2 cm stone in the gallbladder neck. No gallbladder wall thickening, pericholecystic fluid or sonographic Judd's sign. Extrahepatic bile duct caliber measures 6.3 mm. Pancreas is obscured by overlying bowel gas. No free abdominal fluid. IMPRESSION: 1. Cholelithiasis. No ultrasound findings to suggest acute cholecystitis. 2. Diffusely increased hepatic echotexture. This finding is most likely secondary to hepatic fatty infiltration although other hepatocellular disease may have a similar appearance. Recommend clinical correlation. Dictated by: Sera Kennedy M.D. on 08/27/2021 at 8:20 Approved by: Sera Kennedy M.D. on 08/27/2021 at 8:23
[2021-08-27 04:28] LABS: Add Manual Diff / Slide Review NO; Basophils Absolute Auto 0 /uL (0-100); Basophils Percent Auto 0.4 % (0-2); Eosinophils Absolute Auto 300 /uL (0-450); Eosinophils Percent Auto 3.6 % (2-4); Hematocrit 44.4 % (41-53); Hemoglobin 15.6 g/dL (13.5-17.5); Lymphocytes Absolute Auto 1500 /uL (1100-4500); Lymphocytes Percent Auto 17.5 % (25-40); Mean Corpuscular HGB Conc 35.1 % (30-36); Mean Corpuscular Hemoglobin 32.5 PG (26-34); Mean Corpuscular Volume 92.5 fL (80-100); Monocytes Absolute Auto 800 /uL (0-900); Monocytes Percent Auto 9.1 % (3-14); Neutrophils Absolute Auto 5800 /uL (1500-7000); Neutrophils Percent Auto 69.4 % (50-75); Platelet Count 96 X10^3/uL (150-400); Red Cell Distribution Width 13.5 % (11.6-14.8); White Blood Cell Count 8.4 X10^3/uL (4.5-11.0)
[2021-08-27 04:35] LABS: Alanine Aminotransferase 30 IU/L (<50); Albumin 3.8 g/dL (3.5-5.0); Albumin Globulin Ratio 1.2 (1.0-2.8); Alkaline Phosphatase 110 U/L (38-126); Aspartate Aminotransferase 33 IU/L (17-59); BUN Creatinine Ratio 14.7 (6-22); Bilirubin Total 0.6 mg/dL (0.2-1.3); Blood Urea Nitrogen 20 mg/dL (9-20); Calcium 8.8 mg/dL (8.4-10.2); Carbon Dioxide 23 mmol/L (22-32); Chloride 109 mmol/L (98-107); Estimated Glomerular Filt Rate 53.3 mL/min (>60); Globulin 3.2 g/dL (1.7-4.1); Glucose 119 mg/dL (80-110); Lipase 146 U/L (23-300); Sodium 138 mmol/L (137-145)
[2021-08-27 04:40] LABS: HEMOLYSIS 54 (0-50)
[2021-08-27 04:41] LABS: Potassium 4.3 mmol/L (3.4-5.1)
[2021-08-27] MEDS: SODIUM CHLORIDE 0.9% 1,000 ML 1000 ML IV (04:42)
[2021-08-27] MEDS: ONDANSETRON 4 MG/2 ML INJ IV ×2 (05:35→14:35)
[2021-08-27] MEDS: HYDROMORPHONE 1 MG INJ IV (05:35)
[2021-08-27 06:06] LABS: COVID19 - ADMIT (NP swab/PCR) Negative (Negative)
[2021-08-27] MEDS: MORPHINE 2 MG/ML INJ IV ×7 (06:36→23:58)
[2021-08-27] MEDS: LACTATED RINGERS 1,000 ML 100 ML IV (06:37)
[2021-08-27] MEDS: SCOPOLAMINE 1 PATCH TOP (06:39)
[2021-08-27] MEDS: GABAPENTIN 300 MG CAPSULE PO ×3 (06:39→20:39)
--- NOTE | 2021-08-27 11:10 | P.HP_ITS ---
History of Present Illness History of Present Illness Date Patient Seen: 08/27/21 Time Patient Seen: 11:10 Date of Onset of Symptoms: 08/26/21 Chief complaint: abdominal pain Narrative: RUQ pain, h/o biliary colic. Nausea and anorexia. US c/w stone impacted in neck of GB with signs of acute cholecystitis. Patient History Medical History (Updated 08/27/21 @ 06:09 by Devang Mccollum DO) Alcohol dependence Chronic thoracic spine pain Dyspepsia History of rib fracture History of stroke Hx of angioedema Hypertension Injury of hip, right Intermittent lightheadedness Zoster Surgical History History of eye surgery History of Blanche fundoplication History of splenectomy Status post cervical spinal fusion Family & Social History Family History Father Congestive heart failure Lymph edema Mother Perforated sigmoid colon Brother Stroke Sister Hypertension Social History: household members significant other Prior Living Arrangements House Safety & Behavioral: Feels Safe in Current Yes Environment Been Physically Hurt or No Threatened By a Person Suicidal Ideation Description None Suicide Plan Description No Plan Tobacco & Substance use: Tobacco type cigarettes Smoking Status Current every day smoker alcohol intake former alcohol intake frequency 0-2 drinks per day Substance Use Type does not use Meds Home Medications and Allergies Home Medications Medication Instructions Recorded Confirmed Type hydrochlorothiazide 25 mg tablet 25 mg PO QAM 06/10/19 07/01/20 History epinephrine 0.3 mg/0.3 mL 0.3 mg IM Q15M PRN #2 each 11/14/19 07/01/20 Rx injection, auto-injector (EpiPen) diphenhydramine HCl 25 mg capsule 25 mg PO BEDTIME #60 cap 11/23/19 07/01/20 Rx (Benadryl) famotidine 20 mg tablet 20 mg PO BID 01/10/20 07/01/20 History oxycodone-acetaminophen 5 mg-325 1 tab PO TID PRN #10 tab 02/26/20 07/01/20 Rx mg tablet (Percocet) aspirin 81 mg tablet,delayed 81 mg PO DAILY #30 tab 03/17/20 07/01/20 Rx release atorvastatin 20 mg tablet 20 mg PO BEDTIME #30 tab 03/17/20 07/01/20 Rx metoprolol succinate 25 mg 25 mg PO DAILY #30 tab 03/17/20 07/01/20 Rx tablet,extended release 24 hr cyclobenzaprine 10 mg tablet 10 mg PO TID PRN #15 tab 04/17/20 07/01/20 Rx diphenhydramine HCl 25 mg tablet 25 mg PO Q6H PRN #20 tab 04/17/20 07/01/20 Rx (Benadryl Allergy) naproxen 500 mg tablet (Naprosyn) 500 mg PO BID PRN #20 tab 04/17/20 07/01/20 Rx prednisone 20 mg tablet 40 mg PO DAILY #8 tab 04/17/20 07/01/20 Rx meloxicam 7.5 mg tablet (Mobic) 7.5 mg PO BID PRN #10 tab 07/02/21 Rx meloxicam 7.5 mg tablet 7.5 mg PO DAILY #14 tab 08/04/21 Rx Allergies Allergy/AdvReac Type Severity Reaction Status Date / Time lisinopril Allergy Severe Swelling Verified 07/02/21 10:02 of Lip/Tongue/Throat citalopram [CITALOPRAM] Allergy Unknown SEIZURES Verified 07/02/21 10:02 hydrocodone [HYDROCODONE] AdvReac Mild N/V Verified 07/02/21 10:02 Review of Systems Review of Systems ROS: Yes All systems reviewed with the patient and are negative except as otherwise documented Exam Vital Signs (past 8 hours): - 08/27/21 04:05 08/27/21 04:23 08/27/21 04:34 Temperature 98.3 F Pulse Rate 85 79 76 Respiratory Rate 18 Blood Pressure 140/87 Pulse Oximetry 96 95 95 08/27/21 04:35 08/27/21 05:00 08/27/21 05:01 Temperature Pulse Rate 77 76 76 Respiratory Rate Blood Pressure 128/83 118/69 Pulse Oximetry 95 95 96 08/27/21 05:30 08/27/21 06:00 08/27/21 06:10 Temperature 97.3 F L Pulse Rate 75 73 72 Respiratory Rate 18 Blood Pressure 126/90 118/79 112/78 Pulse Oximetry 97 95 98 Oxygen Delivery Method Room Air Oxygen Flow Rate 0 Objective Labs Result Diagrams: 08/27/21 04:15 08/27/21 04:15 Labs: Laboratory Results - last 24 hr 08/27/21 08/27/21 08/27/21 04:15 04:15 05:10 WBC 8.4 RBC 4.80 Hgb 15.6 Hct 44.4 MCV 92.5 MCH 32.5 MCHC 35.1 RDW 13.5 Plt Count 96 L Neut % (Auto) 69.4 Lymph % (Auto) 17.5 L Collier % (Auto) 9.1 Eos % (Auto) 3.6 Baso % (Auto) 0.4 Neut # (Auto) 5800 Lymph # (Auto) 1500 Collier # (Auto) 800 Eos # (Auto) 300 Baso # (Auto) 0 Sodium 138 Potassium 4.3 Chloride 109 H Carbon Dioxide 23 BUN 20 Creatinine 1.36 H Estimated GFR 53.3 L BUN/Creatinine Ratio 14.7 Glucose 119 H Calcium 8.8 Total Bilirubin 0.6 AST 33 ALT 30 Alkaline Phosphatase 110 Total Protein 7.0 Albumin 3.8 Globulin 3.2 Albumin/Globulin Ratio 1.2 Lipase 146 SARS-CoV-2 (PCR) Negative Assessment & Plan Assessment & Plan narrative: Lap viviane Admit for observation due to treatment of acute viviane. COVID-19 COVID-19 status: Negative Time Spent With Patient Time with patient: 30 to 49 minutes with 50% spent counseling/coordinating care Critical Care time: I spent a total of [] minutes of critical care time on this patient's care today; this time is exclusive of procedural time.
[2021-08-27] MEDS: HYDROMORPHONE 2 MG INJ IV ×4 (11:30→14:55)
--- NOTE | 2021-08-27 11:36 | CM.DANOTE ---
DCP: Case received, EMR reviewed and met with patient. Introduced self and role. Was able to obtain information regarding patient's baseline activity level prior to hospitalization. DCP assessment completed with information currently available Patient is a 61 year old male who admitted early this morning to the care of the hospitalist team. PCP: Dr. Maravilla. Payer: confirmed: Medicare/Medicaid. Patient came to the hospital via ambulance secondary to severe abdominal pain. Patient is scheduled for laparoscopic gall bladder surgery today. Met with patient in his room. He is alert and oriented. He is independent at his baseline, and resides in [place] with his significant other. Asked him if he was still using alcohol, and he indicated, he quit back in June. P: DCP to continue to follow. Patient is having surgery. He should be able to go home when stable. Heidi Myles RN/Regroover Discharge Planning/Care Management CM Discharge Assessment Start: 08/27/21 11:34 Freq: Status: Active Protocol: Document 08/27/21 11:34 (Rec: 08/27/21 11:36 [id number]) Discharge Planning Assessment Assigned Newspaper Illustrator Heidi Myles RN/Regroover Advance Directives? No Advance Directives on File No History Provided By Patient,Medical Record Prior Living Arrangements House Household Members significant other Type of transporation used prior to Drives own vehicle admit Independent with ADL's Yes Is patient alert and oriented? Yes Caregiver for Another No Barriers to Discharge No Comment Patient does have history of alcohol abuse, but stopped drinking in June. Discharge Plan Home Transportation Arrangement Family Whiteboard Updated in Patient Room with Yes name and ext. # of Newspaper Illustrator Review Status In Process Next Review Type Continued Stay Review
--- NOTE | 2021-08-27 12:16 | PC.NURSE ---
Am shift Pt with increased pain, IV morphine given x2, good effect. ABD distended and gaurded with assessment. BT active. Pt denies nausea. IV LR infusing, plan for OR @ 1245. Scop patch in place below R ear.
[2021-08-27] MEDS: LACTATED RINGERS 1,000 ML 42 ML IV (12:33)
--- NOTE | 2021-08-27 12:44 | P.HP_ITS ---
History of Present Illness History of Present Illness Date Patient Seen: 08/27/21 Time Patient Seen: 12:45 Chief complaint: abdominal pain Narrative: RUQ pain, h/o biliary colic. Nausea and anorexia. US c/w stone impacted in neck of GB with signs of acute cholecystitis. Deals with chronic pain. s/p lap jonathan, h/o right sided stroke after Jonathan Patient History Medical History (Updated 08/27/21 @ 06:09 by Devang Mccollum DO) Alcohol dependence Chronic thoracic spine pain Dyspepsia History of rib fracture History of stroke Hx of angioedema Hypertension Injury of hip, right Intermittent lightheadedness Zoster Surgical History History of eye surgery History of Jonathan fundoplication History of splenectomy Status post cervical spinal fusion Family & Social History Family History Father Congestive heart failure Lymph edema Mother Perforated sigmoid colon Brother Stroke Sister Hypertension Social History: household members significant other Prior Living Arrangements House Safety & Behavioral: Feels Safe in Current Yes Environment Been Physically Hurt or No Threatened By a Person Suicidal Ideation Description None Suicide Plan Description No Plan Tobacco & Substance use: Tobacco type cigarettes Smoking Status Current every day smoker Smoking packs per day 0.5 alcohol intake former alcohol intake frequency 0-2 drinks per day Substance Use Type does not use Meds Home Medications and Allergies Home Medications Medication Instructions Recorded Confirmed Type famotidine 20 mg tablet 20 mg PO BID 01/10/20 08/27/21 History furosemide 40 mg tablet 40 mg PO DAILY 08/27/21 08/27/21 History spironolactone 100 mg tablet 100 mg PO DAILY 08/27/21 08/27/21 History Allergies Allergy/AdvReac Type Severity Reaction Status Date / Time lisinopril Allergy Severe Swelling Verified 07/02/21 10:02 of Lip/Tongue/Throat citalopram [CITALOPRAM] Allergy Unknown SEIZURES Verified 07/02/21 10:02 hydrocodone [HYDROCODONE] AdvReac Mild N/V Verified 07/02/21 10:02 Review of Systems Review of Systems Narrative: Headache and neck pain at site of titanium ROS: Yes All systems reviewed with the patient and are negative except as otherwise documented Exam Vital Signs (past 8 hours): - 08/27/21 05:00 08/27/21 05:01 08/27/21 05:30 Temperature Pulse Rate 76 76 75 Respiratory Rate Blood Pressure 118/69 126/90 Pulse Oximetry 95 96 97 08/27/21 06:00 08/27/21 06:10 08/27/21 11:30 Temperature 97.3 F L 98.3 F Pulse Rate 73 72 76 Respiratory Rate 18 17 Blood Pressure 118/79 112/78 118/73 Pulse Oximetry 95 98 98 08/27/21 12:23 Temperature 97.7 F Pulse Rate 67 Respiratory Rate 16 Blood Pressure 102/71 Pulse Oximetry 95 Oxygen Delivery Method Room Air Oxygen Flow Rate 0 Const General: cooperative and comfortable HENMT Head: normocephalic and atraumatic Eyes Sclera: sclerae normal Neck Neck: trachea midline Chest Chest: normal inspection of the chest Resp Effort & Inspection: normal respiratory effort and able to speak in complete sentences Cardio Rate: regular rate Rhythm: regular rhythm GI Inspection: obesity Palpation: soft Other: RUQ pain Skin General: no rashes or lesions noted and elasticity normal Neuro General: patient alert and patient oriented x3 Extrem General: normal to inspection Psych Appearance: grossly normal Mental Status: mental status grossly normal Judgment: judgment good Objective Labs Result Diagrams: 08/27/21 04:15 08/27/21 04:15 Labs: Laboratory Results - last 24 hr 08/27/21 08/27/21 08/27/21 04:15 04:15 05:10 WBC 8.4 RBC 4.80 Hgb 15.6 Hct 44.4 MCV 92.5 MCH 32.5 MCHC 35.1 RDW 13.5 Plt Count 96 L Neut % (Auto) 69.4 Lymph % (Auto) 17.5 L [place] % (Auto) 9.1 Eos % (Auto) 3.6 Baso % (Auto) 0.4 Neut # (Auto) 5800 Lymph # (Auto) 1500 [place] # (Auto) 800 Eos # (Auto) 300 Baso # (Auto) 0 Sodium 138 Potassium 4.3 Chloride 109 H Carbon Dioxide 23 BUN 20 Creatinine 1.36 H Estimated GFR 53.3 L BUN/Creatinine Ratio 14.7 Glucose 119 H Calcium 8.8 Total Bilirubin 0.6 AST 33 ALT 30 Alkaline Phosphatase 110 Total Protein 7.0 Albumin 3.8 Globulin 3.2 Albumin/Globulin Ratio 1.2 Lipase 146 SARS-CoV-2 (PCR) Negative Assessment & Plan Assessment & Plan narrative: Acute viviane complicated by obesity, chronic pain and h/o ETOHism Plan: Lap viviane COVID-19 COVID-19 status: Negative Time Spent With Patient Time with patient: 30 to 49 minutes with 50% spent counseling/coordinating care Critical Care time: I spent a total of [] minutes of critical care time on this patient's care today; this time is exclusive of procedural time.
[2021-08-27] MEDS: FAMOTIDINE 20 MG/2 ML VIAL IV (12:47)
[2021-08-27] MEDS: CEFAZOLIN 1 GM VIAL 2 GM IV (13:22)
[2021-08-27] MEDS: BUPIVACAINE 0.5% (PF) 30 ML, EPINEPHrine 0.15 MG INJ (13:25)
--- NOTE | 2021-08-27 13:29 | SUR.OPER ---
Supine on padded OR bed, head on pillow, safety belt at thigh, left arm padded and tucked at side. Right arm secured on padded arm board <90 degrees abduction. Legs uncrossed. Padded footboard in place. Tape over blanket to secure lower legs.
[2021-08-27] MEDS: TRANEXAMIC ACID 1,000 MG in SODIUM CHLORIDE 0.9% 100 ML 200 ML IV (13:43)
--- NOTE | 2021-08-27 14:20 | PM.OP.1 ---
Procedure & Clinicians Procedure: Preop diagnosis: Acute cholecystitis complicated by cirrhosis Postop diagnosis same Operative procedure: Laparoscopic cholecystectomy converted to a subtotal cholecystectomy Surgeon: Loretta Dowell MD Anesthetic: General with ET tube intubation, TXA given during the surgery Findings: Cirrhotic liver, acute cholecystitis. Poor integrity of tissue with tearing of the cystic duct with minor manipulation Procedure: Patient placed in a supine position. Prepped and draped sterile fashion exposing the abdomen. Infraumbilical port site was placed using open technique and a 12 mm port. Insufflation began and all other ports were placed under direct vision including a 10 mm port in the epigastrium and 2 5 mm ports in the right lateral abdomen. Gallbladder is decompressed prior to grasping and pushing it cephalad for exposure. Of note the liver was nodular and stiff consistent with advanced cirrhosis. Cystic duct was identified and in the process of clipping tore away from its attachment to the gallbladder. Could not clearly identify an intact cystic duct due to stretching. Clips were placed in his temp to obliterate the cystic duct. I then used electrocautery and clips to isolate and transect the cystic artery. Gallbladder sac from the fossa by electrocautery. At the apex of the gallbladder it was intrahepatic and I chose at that time to go to a subtotal leaving a rim of back wall on the liver. Stones in that area were suctioned and were captured to be placed into the Endo-Catch bag along with the specimen prior to pulling it off the in for umbilical port site intact. There was bleeding during the procedure and TXA was given per Anesthesia. I removed all ports and began closure after placing a 15 Gio drain into the liver bed looping it up to the lateral aspect of the liver. This was brought out through an existing 5 mm ports and sutured to the anterior abdominal wall with 3-0 nylon. Ports removed and closure began. Closure consisted of interrupted 0 Vicryl for fascial closure of the supraumbilical port site. Skin was closed with a running 4-0 Vicryl. Tissue glue was used rather than Steri-Strips and further reapproximation of the wounds. Dry dressings were placed. Patient was awakened, taken to recovery room in stable condition. Needle, instrument, sponge counts were correct. Blood loss: 100 mL Specimen: Gallbladder Same procedure as scheduled: Yes
--- NOTE | 2021-08-27 15:09 | SUR.PHASEI ---
Report given to Kristin JIMENEZ.
--- NOTE | 2021-08-27 15:17 | SUR.PHASEI ---
Addendum entered by Kristin Zee R.N. 08/27/21 15:21: Pt allergic to [place]or ordered. Original Note: Patient states pain is 6/[address] Dowell via telephone in OR #2 via Kassidy Dobbins to start oxycodone 10mg x1 now.
[2021-08-27] MEDS: OXYCODONE IR 5 MG TABLET 10 MG PO ×3 (15:30→21:40)
[2021-08-27] MEDS: fentaNYL 100 MCG/2 ML INJ IV ×2 (15:40→15:45)
--- NOTE | 2021-08-27 16:04 | SUR.PHASEI ---
1558 Dr Dowell updated on patient pain level, IBAN drainage output. Pt ok to transfer to floor. 1601 Dr Enriquez at bedside, updated on oxy, dilaudid and Fentanyl given. Pt alternating between moaning in pain and sleeping and snoring. ok for patient to transfer to floor.
--- NOTE | 2021-08-27 16:35 | SUR.PHASEI ---
Patient transferred to room 225 in bed with this RN on 2L of oxygen NC, dozed on the way and then alternated with snoring. SBAR update report at bedside to Alma JIMENEZ. Bed in low position, call light in reach.
[2021-08-27] MEDS: fentaNYL 25 MCG/PATCH TOP (18:25)
[2021-08-27] MEDS: BENZOCAINE/MENTHOL 1 LOZ PKT 1 EACH PO (18:28)
--- NOTE | 2021-08-27 18:29 | PC.NURSE ---
Addendum entered by Ayse Montague R.N. 08/27/21 19:30: Urinal in use, will reassess as Pt would like to stand to use. Addendum entered by Ayse Montague R.N. 08/27/21 19:29: Pt with increased agitation during meal, r/t wires, removed cont pulse ox and bp cuff for meal. IV fluids paused as well. Original Note: Pt arrived back to floor post op, extended stay in pacu for pain control. PT moaning on arrival. But quite sedated. UPdate provided to LINDSEY Henson. 3 lap sites to abd, with bandaids, and libia drain compressed and draining. No nausea. Tolerating general diet. PIV x1. PLaced fent patch per order, pain control continues to be an issue,
[2021-08-27] MEDS: CELECOXIB 200 MG CAPSULE PO (20:39)
[2021-08-28] MEDS: LORazepam 2 MG/ML INJ IV
--- NOTE | 2021-08-28 01:33 | PC.NURSE ---
Addendum entered by Michelle Seth R.N. 08/28/21 06:10: Bulb of drain again uncompressed this morning and draining from insertion site. Dressing changed. Drain emptied and recompressed but now not staying compressed. Only an additional 20cc in drain this a.m. Patient awakens when spoken to but falls right back to sleep. Denied any pain. Original Note: Patient is alert and oriented. Breath sounds CTA with sat of 96% on oxygen at 2L/min per NC so tried on RA and was 95%; on continuous oximetry. Complains of abdominal pain when taking deep breaths; instructed in splinting of incision. HRR. Denied nausea. BT present and is passing flatus. Abdomen is distended but soft. Complained of 9/10 abdominal pain around drain site and was medicated with IV Morphine at 2038 and with po oxycodone at 2139. Dressings to lap sites CDI. Dressing placed around drain site as has serosanguinous drainage leaking from insertion site. Drain not compressed so emptied of 15cc and recompressed. Had not voided since 1129 prior to surgery and bladder scan was [address] Dowell was informed and order received to place a catheter but patient refused after which he urinated 125cc. Is able to move himself in bed and ambulated in [place] with SBA to the [facility] and then back to room. Patient agreeable to having bilateral calf SCD's put on after ambulating in [place]. Fall risk score is moderate and bed alarm is activated. Complaining that pain is again at 8/10 (had improved to 6/10) and located now more in right lower quadrant. Was medicated with Morphine at 2301 and by 2329 still moaning and groaning audibly and requesting additional pain medication. Stating it is sharp and constant and felt like it did last night. Wanting to go to ER to be evaluated. Had not yet voided any additional urine and bladder scan showing 491cc. Patient agreed to have catheter placed to see if pain would improve if bladder was empty. Lopez inserted with return of clear, dark renzo urine but patient stated pain had not changed. Dr Dowell contacted. Informed of continued pain despite pain medications, lopez being placed. Reported that patient stating it hurts to take a deep breath. Also informed that Gio drain has not been staying compressed and has had only 15cc during this shift and only minimal drainage in drain at this time. Orders received for additional Morphine as well as 1x doses of both Ativan and Benadryl. Medicated with Morphine and Ativan. Patient fell asleep while receiving Ativan so Benadryl held at that time. O2 sats dropping down into low 80's so placed on oxygen at 3L/min per NC with prongs in mouth as patient is mouth breathing and also noted to have intermittent periods of apnea. Remains asleep at this time with O2 sat of 93%.
[2021-08-28 02:17] VITALS: BP 113/93; PULSE 97; RESP 18; TEMP 36.6; O2SAT 93
[2021-08-28] MEDS: LACTATED RINGERS 1,000 ML 42 ML IV (06:00)
[2021-08-28 06:18] VITALS: BP 114/69; PULSE 91; RESP 18; TEMP 36.7; O2SAT 96
[2021-08-28 06:54] LABS: Add Manual Diff / Slide Review NO; Basophils Absolute Auto 0 /uL (0-100); Basophils Percent Auto 0.1 % (0-2); Eosinophils Absolute Auto 100 /uL (0-450); Eosinophils Percent Auto 0.5 % (2-4); Hematocrit 49.1 % (41-53); Hemoglobin 16.5 g/dL (13.5-17.5); Lymphocytes Absolute Auto 700 /uL (1100-4500); Lymphocytes Percent Auto 3.5 % (25-40); Mean Corpuscular HGB Conc 33.6 % (30-36); Mean Corpuscular Hemoglobin 31.8 PG (26-34); Mean Corpuscular Volume 94.7 fL (80-100); Monocytes Absolute Auto 1200 /uL (0-900); Monocytes Percent Auto 6.3 % (3-14); Neutrophils Absolute Auto 16700 /uL (1500-7000); Neutrophils Percent Auto 89.6 % (50-75); Platelet Count 105 X10^3/uL (150-400); Red Blood Cell Count 5.19 X10^6/uL (4.5-5.9); Red Cell Distribution Width 13.9 % (11.6-14.8); White Blood Cell Count 18.6 X10^3/uL (4.5-11.0)
[2021-08-28 07:40] VITALS: BP 128/57; PULSE 94; RESP 16; TEMP 36.8; O2SAT 96
[2021-08-28 07:55] LABS: Alanine Aminotransferase 38 IU/L (<50); Albumin 4.2 g/dL (3.5-5.0); Albumin Globulin Ratio 1.3 (1.0-2.8); Alkaline Phosphatase 101 U/L (38-126); Aspartate Aminotransferase 42 IU/L (17-59); BUN Creatinine Ratio 15.6 (6-22); Bilirubin Total 1.2 mg/dL (0.2-1.3); Blood Urea Nitrogen 28 mg/dL (9-20); Calcium 8.5 mg/dL (8.4-10.2); Carbon Dioxide 22 mmol/L (22-32); Chloride 104 mmol/L (98-107); Estimated Glomerular Filt Rate 38.8 mL/min (>60); Globulin 3.2 g/dL (1.7-4.1); Glucose 135 mg/dL (80-110); HEMOLYSIS < 15 (0-50); Sodium 132 mmol/L (137-145); Total Protein 7.4 g/dL (6.3-8.2)
[2021-08-28 08:10] LABS: Potassium 7.6 mmol/L (3.4-5.1)
[2021-08-28] MEDS: OXYCODONE IR 5 MG TABLET 10 MG PO ×3 (09:10→16:03)
[2021-08-28] MEDS: GABAPENTIN 300 MG CAPSULE PO ×2 (09:10→14:01)
[2021-08-28] MEDS: CELECOXIB 200 MG CAPSULE PO (09:10)
[2021-08-28] MEDS: ENOXAPARIN 40 MG/0.4 ML SYRINGE SUBCUT (09:10)
[2021-08-28 09:11] LABS: HEMOLYSIS < 15 (0-50)
[2021-08-28 09:18] LABS: Potassium 6.1 mmol/L (3.4-5.1)
[2021-08-28 11:30] VITALS: BP 119/73; PULSE 80; RESP 16; TEMP 37.1; O2SAT 92
--- NOTE | 2021-08-28 13:00 | PC.NURSE ---
Addendum entered by Agnieszka Yates R.N. 08/28/21 16:42: Dr. Dowell here. She repositioned drain and resutured it back into place, then she pouched the libia drain with ostomy supplies to help contain the drainage. Md Dowell called [place] to arrange transport to [facility] for ECRP. She spoke with patient and SO. Pt initially didn't want to go but after a second explanation by Dr. Dowell he agreed to go. Nurse Singh was called report, reviewed hospital course. K+ of 7.6, treated with hydration and time, last k+ 5.6, pt had urinary retention during the night and lopez cath placed to gravity drainage. Pt has scope patch behind the lt ear. IV lt wrist is patent and intact. Discussed libia drain - Dr. Dowell's repositioning and pouching. WBC increase to 18.6 and started IV antibiotics. Pt has hx of etoh use, liver cirrhosis, drug use, pt's last use was 06/2000. Pt is reporting high levels of pain but it is better than yesterday, received 3 doses of oxycodone with the last one prior to leaving, and 1 dose of IV dilaudid. Pt has a past hx of smoking. O2 has been weaned off and sats are in the low 90's. Tele was placed and had ekg after results were seen of initial k+. Pt has been in sr, no ectopy and is displaying no sxs of elevated potassium. He is a full code and covid negative. Questions answered. When amb crew arrived they were given same report. Questions answered. Pt transported to [facility] via [facility]. Original Note: Post-op: Lab called with a critical value of 7.7 k+, pt has not had a value this high, request lab to repeat value. Second result was 7.6. Dr. Dowell notified by phone of results as well as wbc. She asked for hospitalist consult and to have call transfered to Dr. Cleary this was done. Dr. Cleary had k+ repeated again with the results of 6.1 +. See new orders, tele placed, EKG completed. Denies any c/p. Does have pain at his diaphram when he coughs. He has had this since surgery. He reports he was told it was from the gas. IBAN no longer compresses and has been draining green yellow fluid, no longer is any serous fluid seen. Dr. Dowell called a second time and made aware. Start process to transfer to a facility with ERCP capabilities to do the procedure and stay or return to this facility. Julisa GRAVES made aware. She is calling facilities to find availability of doing procedure and a bed. Dressing to libia drain site has been changed x2, saturated box of 4x4, cover dressing, and a towel over this which was saturated by 6x8 inch area. Pt has received oxy x2 for pain. Has dangled and stood at the bedside. Denies c/p or heart pain. Cont w/plan of care.
--- NOTE | 2021-08-28 13:39 | PM.CN ---
History of Present Illness Consult details Date Patient Seen: 08/28/21 Time Patient Seen: 13:39 Chief complaint: abdominal pain Reason for consult: hyperkalemia Requesting provider: Nataliia Dowell Narrative: ?Mr. Elroy Larkin is a 59 year old male with history significant for hypertension, prior stroke, dyspepsia, previous angioedema reaction, and probably alcoholic hepatitis who was admitted with acute cholecystitis. He underwent cholecystectomy yesterday which was quite difficult, he was also noted during the operative to have a cirrhotic appearing liver. This morning he was noted to have a potassium of 7.6, repeat value was 6.1. Creatinine was 1.79 up from his baseline of 1.1. Remained of CMP was unremarkable. He has not taken any lasix in a few days which he normally takes. He denies chest pain, palpitations, shortness of breath. He legs are chronically swollen but not bad currently. He does have continued abdominal pain after surgery. A drain is in place. He is tolerating a diet currently with some burping. EKG was performed, no T wave abnormalities. No events on telemetry thus far. Given improvement and no EKG changes, patient was not treated. Repeat studies have been ordered for a few hours later. It is unclear if there was hemolysis in the first blood specimen collected. Meds Home Medications and Allergies Home Medications Medication Instructions Recorded Confirmed Type famotidine 20 mg tablet 20 mg PO BID 01/10/20 08/27/21 History furosemide 40 mg tablet 40 mg PO DAILY 08/27/21 08/27/21 History spironolactone 100 mg tablet 100 mg PO DAILY 08/27/21 08/27/21 History Allergies Allergy/AdvReac Type Severity Reaction Status Date / Time lisinopril Allergy Severe Swelling Verified 07/02/21 10:02 of Lip/Tongue/Throat citalopram [CITALOPRAM] Allergy Unknown SEIZURES Verified 07/02/21 10:02 hydrocodone [HYDROCODONE] AdvReac Mild N/V Verified 07/02/21 10:02 Review of Systems Review of Systems Narrative: All other systems reviewed with the patient and are negative unless otherwise stated. Exam Vital Signs (past 8 hours): - 08/28/21 06:18 08/28/21 07:40 08/28/21 11:30 Temperature 98.0 F 98.2 F 98.7 F Pulse Rate 91 H 94 H 80 Respiratory Rate 18 16 16 Blood Pressure 114/69 128/57 L 119/73 Pulse Oximetry 96 96 92 Oxygen Delivery Method Room Air Oxygen Flow Rate 2 Narrative Exam Narrative: GENERAL APPEARANCE: Well developed, well nourished, in no acute distress. SKIN: Inspection of the skin reveals no rashes, ulcerations or petechiae. HEENT: Normocephalic atraumatic, extraocular muscles are intact, oropharynx is clear and mucous membranes are moist, neck is supple without adenopathy LUNGS: Auscultation of the lungs revealed no wheezes, rhonchi, or rales. CARDIOVASCULAR: There was a regular rate and rhythm without any murmurs, gallops, rubs. Peripheral pulses were 2+ and symmetric. ABDOMEN: Soft, mildly distended, IBAN drain in place with bileous appearing liquid. Bandages in place appear c/d/i. Appropriately tender. MUSCULOSKELETAL: There was no tenderness or effusions noted. EXTREMITIES: No cyanosis, clubbing. Trace bilatreal edema. NEUROLOGIC: Alert and oriented x 3. Strength is +5/5 in the Upper Extremities and Lower Extremities Bilaterally. Sensation to touch was normal. Objective Labs Result Diagrams: 08/28/21 06:43 08/28/21 08:58 Labs: Laboratory Results - last 24 hr 08/28/21 08/28/21 08/28/21 06:43 07:35 08:58 WBC 18.6 H D RBC 5.19 Hgb 16.5 Hct 49.1 MCV 94.7 MCH 31.8 MCHC 33.6 RDW 13.9 Plt Count 105 L Neut % (Auto) 89.6 H D Lymph % (Auto) 3.5 L [place] % (Auto) 6.3 Eos % (Auto) 0.5 L Baso % (Auto) 0.1 Neut # (Auto) 68343 H Lymph # (Auto) 700 L [place] # (Auto) 1200 H Eos # (Auto) 100 Baso # (Auto) 0 Sodium 132 L Potassium 7.6 H* D 6.1 H D Chloride 104 Carbon Dioxide 22 BUN 28 H Creatinine 1.79 H Estimated GFR 38.8 L BUN/Creatinine Ratio 15.6 Glucose 135 H Calcium 8.5 Total Bilirubin 1.2 AST 42 ALT 38 Alkaline Phosphatase 101 Total Protein 7.4 Albumin 4.2 Globulin 3.2 Albumin/Globulin Ratio 1.3 PFSH Medical History Alcohol dependence Cervical stenosis of spine Chronic thoracic spine pain Dyspepsia History of rib fracture History of stroke Hx of angioedema Hypertension Injury of hip, right Intermittent lightheadedness Surgical History History of eye surgery History of Blanche fundoplication History of splenectomy Hx laparoscopic cholecystectomy Status post cervical spinal fusion Family History Father Congestive heart failure Lymph edema Mother Perforated sigmoid colon Brother Stroke Sister Hypertension Social History household members: significant other Tobacco & Substance Use Smoking Status: Current every day smoker alcohol intake: former Assessment & Plan Assessment & Plan narrative: 1. Acute kidney injury with hyperkalemia - EKG without T wave abnormalities. STEFFI likely secondary to ATN. - continue tele. - no acute need for treatments currently as STEFFI likely resolving and patient asymptomatic without T wave changes. - repeat BMP. If potassium remains elevated consider lasix if creatinine improving or medically treat with insulin, etc. and IV fluids if creatinine worsening. - unlikely hepatorenal syndrome given presentation, though if no improvement consider albumin/octreotide. 2. Sepsis secondary to acute cholecystitis - SOFA score is >2 given STEFFI and thrombocytopenia. Plt count may be related to cirrhosis however was normal last year. - management per surgical service. 3. probable alcoholic cirrhosis. - patient with previous episodes of alcoholic hepatitis per review of records and patient history. Nodular appearing liver noted during cholecystectomy may be indicative of cirrhosis. CT imaging showing a normal liver. - MELD is approx. 17 if creatinine improves, 20 with current values. Continue to monitor. - would recommend outpatient follow up with hepatology after current issues resolve. He reports no recent alcohol use. Code: Full, surrogate is the patient's daughters I have utilized all available immediate resources to obtain, update, or review the patient's current medications. Medicine will continue to follow until potassium, STEFFI improves. COVID-19 COVID-19 status: Negative Time Spent With Patient Critical Care time: I spent a total of [] minutes of critical care time on this patient's care today; this time is exclusive of procedural time.
[2021-08-28] MEDS: HYDROMORPHONE 2 MG INJ IV (14:01)
[2021-08-28] MEDS: PIPERACILLIN/TAZO 4.5 GM in SODIUM CHLORIDE 0.9% 100 ML 200 ML IV (14:27)
[2021-08-28] MEDS: SODIUM CHLORIDE 0.45% 1,000 ML 100 ML IV (14:27)
--- NOTE | 2021-08-28 14:30 | PM.PNPO.1 ---
Subjective Subjective Date Patient Seen: 08/28/21 Time Patient Seen: 14:30 Interval history: Right sided pain over night. Drain stopped holding suction green drainage around the drain. Exam Vital Signs (past 8 hours): - 08/28/21 07:40 08/28/21 11:30 Temperature 98.2 F 98.7 F Pulse Rate 94 H 80 Respiratory Rate 16 16 Blood Pressure 128/57 L 119/73 Pulse Oximetry 96 92 Oxygen Delivery Method Room Air Oxygen Flow Rate 2 Narrative Exam Narrative: Cognitive is baseline with good judgement Lungs clear with no O2 requirement. Hurts to take deep breath Abdomen is soft, wounds intact. Drain is pulled out and not amendable to pushing back in. bile drainage around the drain. Const General: cooperative and comfortable Objective Labs Result Diagrams: 08/28/21 06:43 08/28/21 08:58 Labs: Laboratory Results - last 24 hr 08/28/21 08/28/21 08/28/21 06:43 07:35 08:58 WBC 18.6 H D RBC 5.19 Hgb 16.5 Hct 49.1 MCV 94.7 MCH 31.8 MCHC 33.6 RDW 13.9 Plt Count 105 L Neut % (Auto) 89.6 H D Lymph % (Auto) 3.5 L Cl[place] % (Auto) 6.3 Eos % (Auto) 0.5 L Baso % (Auto) 0.1 Neut # (Auto) 58261 H Lymph # (Auto) 700 L [place] # (Auto) 1200 H Eos # (Auto) 100 Baso # (Auto) 0 Sodium 132 L Potassium 7.6 H* D 6.1 H D Chloride 104 Carbon Dioxide 22 BUN 28 H Creatinine 1.79 H Estimated GFR 38.8 L BUN/Creatinine Ratio 15.6 Glucose 135 H Calcium 8.5 Total Bilirubin 1.2 AST 42 ALT 38 Alkaline Phosphatase 101 Total Protein 7.4 Albumin 4.2 Globulin 3.2 Albumin/Globulin Ratio 1.3 PFSH Medical History Alcohol dependence Cervical stenosis of spine Chronic thoracic spine pain Dyspepsia History of rib fracture History of stroke Hx of angioedema Hypertension Injury of hip, right Intermittent lightheadedness Surgical History History of eye surgery History of Blanche fundoplication History of splenectomy Hx laparoscopic cholecystectomy Status post cervical spinal fusion Family History Father Congestive heart failure Lymph edema Mother Perforated sigmoid colon Brother Stroke Sister Hypertension Social History household members: significant other Smoking Status: Current every day smoker alcohol intake: former Assessment & Plan Post-op Postoperative Procedures: Procedures Operation Date: 08/27/21 12:45 Actual Procedure Side Surgeon p Laparoscopic Cholecystectomy Nataliia Dowell MD Postoperative day: 1 Postoperative status: urinary retention Postoperative status narrative: confirmed bile leak that is likely cystic duct given the lack of integrity during surgery. Drain was pulled out to the point the suction is lost. Drain does stent the body wall open to allow some drainage into a colostomy bag. Hyperkalemia liver cirrhosis w/o ascites, Tylenol removed from MAR Chronic pain New leukocytosis for which I restarted Zosyn Postoperative plan: other Postoperative plan narrative: Looking to transfer to another facility for ERCP and possible IR drain(if needed). Tele and repeat Lab for K+ and treatment if required per medicine. Drain modified to a gravity drain into colostomy bag [facility] accepted patient. Time Spent With Patient Time with patient: Greater than 35 minutes
[2021-08-28 15:02] LABS: Blood Urea Nitrogen 32 mg/dL (9-20); Calcium 8.6 mg/dL (8.4-10.2); Carbon Dioxide 21 mmol/L (22-32); Chloride 102 mmol/L (98-107); Estimated Glomerular Filt Rate 39.1 mL/min (>60); Glucose 133 mg/dL (80-110); HEMOLYSIS < 15 (0-50); Sodium 131 mmol/L (137-145)
[2021-08-28 15:03] LABS: Potassium 5.6 mmol/L (3.4-5.1)
[2021-08-28 16:23] VITALS: BP 116/77; PULSE 88; RESP 19; TEMP 37.4; O2SAT 90
== END 2021-08-28 16:40 | disposition short-term general hospital (02) ==
LOC: ED 05:17 → AC 05:45
PROVIDERS: Internal Medicine; Admitting Provider Surgery; Emergency Provider Emergency Medicine; PCP Internal Medicine; Referring Provider Emergency Medicine; Visit Provider Surgery
PROC: 0FT44ZZ Resection of Gallbladder, Percutaneous Endoscopic Approach (ICD-10-PCS; CPT 47562; principal; 2021-08-27 12:45)
DX: K81.1 Chronic cholecystitis (principal); R10.30 Lower abdominal pain, unspecified; F17.210 Nicotine dependence, cigarettes, uncomplicated; E66.9 Obesity, unspecified; K21.9 Gastro-esophageal reflux disease without esophagitis; K74.5 Biliary cirrhosis, unspecified; F10.21 Alcohol dependence, in remission; I10 Essential (primary) hypertension; Z20.822 Contact with and (suspected) exposure to COVID-19
CPT/HCPCS: 47562; 36415; 74022; 76705; 80048; 80053; 82962; 83690; 84132; 85025; 87635; 93005; 94762; 96361; 96374; 96375; 99220; 99284; C9803; G0378; J0171; J0330; J0690; J1100; J1170; J1200; J1650; J2060; J2270; J2405; J2543; J2704; J3010; J7050

== ENCOUNTER 2021-09-06 22:01 | Inpatient (IN) | payer MEDICARE, MEDICAID, SELFPAY ==
[2018-08-01 09:00] VITALS: PULSE 43; RESP 16; O2SAT 96
[2021-08-27 06:48] VITALS: BMI 35.3
[2021-09-06 22:10] VITALS: BP 124/74; PULSE 93; RESP 16; TEMP 36.6; O2SAT 97; BMI 34.2
--- NOTE | 2021-09-06 22:18 | ED_ITS ---
HPI - General Adult General Chief complaint: Abdominal Pain Stated complaint: Abd Pain Time Seen by Provider: 09/06/21 22:17 Source: patient and EMS Mode of arrival: EMS Limitations: no limitations History of Present Illness HPI narrative: 61-year-old man with a history of chronic pancreatitis, alcoholic cirrhosis, no alcohol use for over a year who presented on August 27 with right upper quadrant abdominal pain. Was taken to the operating room by Dr. Dowell for laparoscopic cholecystectomy. Postop there is a concern for a question of of bile leak and need for ERCP so he was transferred to [facility]. HIDA scan there was negative for a bile leak and ERCP was not done. IBAN drain fluid did have an elevated cell count so the possibility of peritonitis was raised and the patient was pretreated with Zosyn. He was given large doses of oxycodone for the 1st few days resulting in even slower bowels. NG tube was placed and eventually he had a number of bowel movements and seem to be doing well recovering after his postop ileus. IBAN drains were removed and recommendation is that sutures were to come out on or about September 15. He was discharged from [facility] on 09/05 and presents to [facility] the late evening of 09/06 complaining of significant swelling of his penis and scrotum despite over at 10 lb weight loss with addition of Lasix in the last 48 hours. He is complaining of increasing abdominal pain that is not able to be controlled with the oral oxycodone that he has at home. He is somewhat nauseated but has not vomited. He complains of right lower quadrant abdominal pain and states that it is worse that has been when he was in the hospital. Does not describe chest pain, orthopnea, dyspnea, cough, fever, chills. He has no headache and no acute neurologic complaints. Related Data Home Medications Medication Instructions Recorded Confirmed famotidine 20 mg tablet 20 mg PO BID 01/10/20 08/27/21 furosemide 40 mg tablet 40 mg PO DAILY 08/27/21 08/27/21 spironolactone 100 mg tablet 100 mg PO DAILY 08/27/21 08/27/21 Allergies Allergy/AdvReac Type Severity Reaction Status Date / Time lisinopril Allergy Severe Swelling Verified 07/02/21 10:02 of Lip/Tongue/Throat citalopram [CITALOPRAM] Allergy Unknown SEIZURES Verified 07/02/21 10:02 hydrocodone [HYDROCODONE] AdvReac Mild N/V Verified 07/02/21 10:02 Review of Systems Review of Systems Narrative: Remainder of complete review of systems is otherwise unremarkable except for that included in the HPI. Patient History Medical History Alcohol dependence Cervical stenosis of spine Chronic thoracic spine pain Dyspepsia History of rib fracture History of stroke Hx of angioedema Hypertension Injury of hip, right Intermittent lightheadedness Surgical History History of eye surgery History of Blanche fundoplication History of splenectomy Hx laparoscopic cholecystectomy Status post cervical spinal fusion Family History Father Congestive heart failure Lymph edema Mother Perforated sigmoid colon Brother Stroke Sister Hypertension Social History household members: significant other Smoking Status: Current every day smoker alcohol intake: former Smoking Status: Current every day smoker tobacco type: cigarettes alcohol intake frequency: 0-2 drinks per day Alcohol type: hard liquor Substance Use Type: does not use Exam Narrative Exam Narrative: General: Healthy appearing, in a moderate amount of pain but Able to give a complete and coherent history. Well-nourished well-developed HEENT: Moist mucous membranes, normal sclera with reactive pupils, Neck: No JVD, supple Respiratory: Lungs are clear to auscultation, no wheezing no rales no rhonchi. Full and symmetrical air movement Cardiac: Regular rate and rhythm no murmurs no bruits Abdomen: Distended, diffusely tender, no bowel tones appreciated,. Laparoscopic cholecystectomy surgical sites have some minor hematomas particularly around the umbilicus but not look infected. no flank pain Genitals: Moderately edematous scrotum and penis with no erythema or increased warmth. He has no inguinal adenopathy or redness to suggest developing cellulitis. Skin: Warm and dry, no rashes Neurologic: Grossly neurologically intact with no obvious asymmetries or abnormalities Extremities: No trauma, well perfused, 1+ lower extremity edema left leg 2+ on the right leg. No tenderness in the calf on either side. Psych: Cooperative, appropriate insight and affect Initial Vital Signs Initial Vital Signs: Vital Signs Temperature 98 F 09/06/21 22:10 Pulse Rate 93 H 09/06/21 22:10 Respiratory Rate 16 09/06/21 22:10 Blood Pressure 124/74 09/06/21 22:10 Pulse Oximetry 97 09/06/21 22:10 Course Orders Ordered: ED Orders 09/06/21 22:25 Complete Blood Count AUTO DIFF Stat Comprehensive Metabolic Panel Stat Lipase Stat Partial Thromboplastin Time Stat Prothrombin Time INR Stat 09/07/21 00:05 Urine Microscopic Stat 09/07/21 01:05 XR abdomen 1V Stat 09/07/21 02:33 CT abdomen pelvis w con Stat 09/07/21 03:25 COVID19 - ADMIT (REFLESHER swab/PCR) Stat Hydromorphone HCl (Hydromorphone 0.5 Mg Inj) 1 mg IV Q1HR PRN PRN Reason: pain Discontinued Medications Furosemide (Furosemide 40 Mg/4 Ml Vial) 40 mg IV NOW ONE Stop: 09/07/21 01:06 Last Admin: 09/07/21 01:48 Dose: 40 mg Documented by: IVETTE Hydromorphone HCl (Hydromorphone 1 Mg Inj) 1 mg IV NOW ONE Stop: 09/07/21 02:33 Last Admin: 09/07/21 02:39 Dose: 1 mg Documented by: IVETTE Hydromorphone HCl (Hydromorphone 0.5 Mg Inj) 0.5 mg IV Q15MIN PRN PRN Reason: Pain, Last Admin: 09/07/21 03:58 Dose: 0.5 mg Documented by: IVETTE Lidocaine HCl (Lidocaine 2% (Glydo) 6 Ml Gel) 6 ml TOP NOW ONE Stop: 09/07/21 02:34 Last Admin: 09/07/21 02:39 Dose: 6 ml Documented by: IVETTE Ondansetron HCl (Ondansetron 4 Mg/2 Ml Inj) 4 mg IV NOW ONE Stop: 09/07/21 01:55 Last Admin: 09/07/21 01:57 Dose: 4 mg Documented by: IVETTE Oxycodone HCl (Oxycodone Ir 5 Mg Tablet) 10 mg PO NOW ONE Stop: 09/07/21 01:06 Last Admin: 09/07/21 01:49 Dose: 10 mg Documented by: HGUBERN Vital Signs Vital signs: Vital Signs - 8 hr 09/06/21 22:10 09/07/21 03:25 09/07/21 03:30 Temperature 98 F Pulse Rate 93 H 87 86 Respiratory Rate 16 Blood Pressure 124/74 120/74 121/73 Pulse Oximetry 97 95 93 09/07/21 04:00 09/07/21 04:30 09/07/21 05:00 Temperature Pulse Rate 88 90 82 Respiratory Rate Blood Pressure 115/76 112/72 112/80 Pulse Oximetry 95 93 91 Medical Decision Making Lab Data Result diagrams: 09/06/21 22:25 09/06/21 22:25 Labs: Lab Results 09/06/21 09/06/21 09/06/21 Range/Units 22:25 22:25 22:25 WBC 10.2 (4.5-11.0) X10^3/uL RBC 4.72 (4.5-5.9) X10^6/uL Hgb 14.8 (13.5-17.5) g/dL Hct 43.5 (41-53) % MCV 92.1 (80-100) fL MCH 31.3 (26-34) PG MCHC 34.0 (30-36) % RDW 13.6 (11.6-14.8) % Plt Count 106 L (150-400) X10^3/uL Neut % (Auto) 76.2 H (50-75) % Lymph % (Auto) 13.0 L (25-40) % Colbert % (Auto) 8.3 (3-14) % Eos % (Auto) 2.1 (2-4) % Baso % (Auto) 0.4 (0-2) % Neut # (Auto) 7800 H (3882-6935) /uL Lymph # (Auto) 1300 (7406-9281) /uL Colbert # (Auto) 800 (0-900) /uL Eos # (Auto) 200 (0-450) /uL Baso # (Auto) 0 (0-100) /uL PT 12.8 H (10.1-12.7) SECONDS INR 1.2 (0.9-1.3) APTT 30 (26.4-36.2) SECONDS Sodium 135 L (137-145) mmol/L Potassium 4.0 D (3.4-5.1) mmol/L Chloride 101 (98-107) mmol/L Carbon Dioxide 31 (22-32) mmol/L BUN 10 (9-20) mg/dL Creatinine 1.13 (0.66-1.25) mg/dL Estimated GFR > 60.0 (>60) mL/min BUN/Creatinine Ratio 8.8 (6-22) Glucose 117 H (80-110) mg/dL Calcium 8.3 L (8.4-10.2) mg/dL Total Bilirubin 0.8 (0.2-1.3) mg/dL AST 29 (17-59) IU/L ALT 27 (<50) IU/L Alkaline Phosphatase 87 (38-126) U/L Total Protein 6.3 (6.3-8.2) g/dL Albumin 3.2 L (3.5-5.0) g/dL Globulin 3.1 (1.7-4.1) g/dL Albumin/Globulin Ratio 1.0 (1.0-2.8) Lipase 250 (23-300) U/L Urine RBC (0-5/HPF) Urine WBC (0-5/HPF) Urine Bacteria (None) Ur Culture Indicated? SARS-CoV-2 (PCR) (Negative) 09/07/21 09/07/21 Range/Units 00:05 03:25 WBC (4.5-11.0) X10^3/uL RBC (4.5-5.9) X10^6/uL Hgb (13.5-17.5) g/dL Hct (41-53) % MCV (80-100) fL MCH (26-34) PG MCHC (30-36) % RDW (11.6-14.8) % Plt Count (150-400) X10^3/uL Neut % (Auto) (50-75) % Lymph % (Auto) (25-40) % Colbert % (Auto) (3-14) % Eos % (Auto) (2-4) % Baso % (Auto) (0-2) % Neut # (Auto) (0681-5420) /uL Lymph # (Auto) (2351-6261) /uL Colbert # (Auto) (0-900) /uL Eos # (Auto) (0-450) /uL Baso # (Auto) (0-100) /uL PT (10.1-12.7) SECONDS INR (0.9-1.3) APTT (26.4-36.2) SECONDS Sodium (137-145) mmol/L Potassium (3.4-5.1) mmol/L Chloride (98-107) mmol/L Carbon Dioxide (22-32) mmol/L BUN (9-20) mg/dL Creatinine (0.66-1.25) mg/dL Estimated GFR (>60) mL/min BUN/Creatinine Ratio (6-22) Glucose (80-110) mg/dL Calcium (8.4-10.2) mg/dL Total Bilirubin (0.2-1.3) mg/dL AST (17-59) IU/L ALT (<50) IU/L Alkaline Phosphatase (38-126) U/L Total Protein (6.3-8.2) g/dL Albumin (3.5-5.0) g/dL Globulin (1.7-4.1) g/dL Albumin/Globulin Ratio (1.0-2.8) Lipase (23-300) U/L Urine RBC None seen (0-5/HPF) Urine WBC None seen (0-5/HPF) Urine Bacteria None seen (None) Ur Culture Indicated? Cult not indicated SARS-CoV-2 (PCR) Negative (Negative) Urine Dip Bedside Urine Glucose Negative Bedside Urine Bilirubin - Negative Bedside Urine Ketone - Negative Urine Specific Glen 1.010 Bedside Urine Occult Blood +/- Bedside Urine pH 805 Bedside Urine Protein - Negative Bedside Urine Urobilinogen - Negative Bedside Urine Nitrite - Negative Bedside Urine Leukocytes - Negative Esterase Point of care testing: Urine Dip Bedside Urine Glucose Negative Bedside Urine Bilirubin - Negative Bedside Urine Ketone - Negative Urine Specific Glen 1.010 Bedside Urine Occult Blood +/- Bedside Urine pH 805 Bedside Urine Protein - Negative Bedside Urine Urobilinogen - Negative Bedside Urine Nitrite - Negative Bedside Urine Leukocytes - Negative Esterase Imaging Data CT scan - abdomen/pelvis: Radiologist's Impression: Prominent loops of small bowel with scattered air-fluid levels. Suspect this is related to postoperative ileus rather than involving small bowel obstruction. Postsurgical findings of cholecystectomy a trace fluid, inflammatory changes noted surgical site. MDM Narrative Medical decision making narrative: 61-year-old gentleman with recent laparoscopic cholecystectomy concern for bile leak/peritonitis, transfer to [facility] with complicating fluid overload in significant lower extremity edema. Yesterday with Lasix initiated, significant diuresis however today he is having new scrotal and penis swelling that he finds dramatically concerning. He is also having increasing abdominal pain that is progressively getting worse with mild abdominal distention. Lab work is actually reassuring with a normal white blood cell count, chemistries are reassuring with normal creatinine and LFTs. X-ray of the abdomen shows dramatically distended stomach with concern for gastric outlet obstruction. NG tube was placed, pain is adequately controlled with IV Dilaudid. CT scan of the abdomen is ordered. Will anticipate need for hospitalization. 5:20 850cc out NG tube with some relief to abdominal pain. 5:47 case is reviewed with Dr. Desir, general surgery. At this point there is no acute surgical finding. After his stomach was decompressed there does not appear to be in acute gastric outlet obstruction or surgical finding. He will need to be admitted until his relative ileus has resolved and he is able to eat and drink. He will need additional help with diuresis. Surgery will consult but because there is no acute surgical intervention required at this point patient will be admitted to the medicine service. 5:50 Care is reviewed with Geraldine Weaver, hospitalist [facility]IR[facility]. Will admit Discharge Plan Departure Patient Disposition: Admitted As Inpatient Clinical Impression: Gastric outlet obstruction, Postoperative ileus, Scrotal edema
[2021-09-06 22:32] LABS: Add Manual Diff / Slide Review NO; Basophils Absolute Auto 0 /uL (0-100); Basophils Percent Auto 0.4 % (0-2); Eosinophils Absolute Auto 200 /uL (0-450); Eosinophils Percent Auto 2.1 % (2-4); Hematocrit 43.5 % (41-53); Hemoglobin 14.8 g/dL (13.5-17.5); Lymphocytes Absolute Auto 1300 /uL (1100-4500); Mean Corpuscular Hemoglobin 31.3 PG (26-34); Mean Corpuscular Volume 92.1 fL (80-100); Monocytes Absolute Auto 800 /uL (0-900); Monocytes Percent Auto 8.3 % (3-14); Neutrophils Absolute Auto 7800 /uL (1500-7000); Neutrophils Percent Auto 76.2 % (50-75); Platelet Count 106 X10^3/uL (150-400); Red Blood Cell Count 4.72 X10^6/uL (4.5-5.9); Red Cell Distribution Width 13.6 % (11.6-14.8); White Blood Cell Count 10.2 X10^3/uL (4.5-11.0)
[2021-09-06 22:38] LABS: INR 1.2 (0.9-1.3); Prothrombin Time 12.8 SECONDS (10.1-12.7)
[2021-09-06 22:41] LABS: PTT Partial Thromboplastin Tim 30 SECONDS (26.4-36.2)
[2021-09-06 22:42] LABS: Alanine Aminotransferase 27 IU/L (<50); Albumin 3.2 g/dL (3.5-5.0); Alkaline Phosphatase 87 U/L (38-126); Aspartate Aminotransferase 29 IU/L (17-59); BUN Creatinine Ratio 8.8 (6-22); Bilirubin Total 0.8 mg/dL (0.2-1.3); Blood Urea Nitrogen 10 mg/dL (9-20); Calcium 8.3 mg/dL (8.4-10.2); Carbon Dioxide 31 mmol/L (22-32); Chloride 101 mmol/L (98-107); Estimated Glomerular Filt Rate > 60.0 mL/min (>60); Globulin 3.1 g/dL (1.7-4.1); Glucose 117 mg/dL (80-110); HEMOLYSIS 16 (0-50); Lipase 250 U/L (23-300); Sodium 135 mmol/L (137-145); Total Protein 6.3 g/dL (6.3-8.2)
[2021-09-07] VITALS (27 sets, daily range): BP systolic 95–121; BP diastolic 57–80; PULSE 61–90; RESP 12–18; TEMP 36.1–37; O2SAT 89–99; BMI 34.2
[2021-09-07 00:55] LABS: Bacteria Urine None Seen; Culture Indicated Urine Cult Not Indicated; RBC Urine None Seen (0-5/HPF); WBC Urine None Seen (0-5/HPF)
--- NOTE | 2021-09-07 01:05 | DI.RAD.S_ITS ---
PROCEDURE: XR ABDOMEN 1V INDICATIONS: distention TECHNIQUE: One view of the abdomen acquired. COMPARISON: , CR, XR ACUTE ABDOMEN SERIES, 08/27/2021, 4:15. FINDINGS: Surgical changes and devices: None. Bowel: Moderate gastric distension. Soft tissues: No suspicious abdominal calcifications. Visualized solid organ contours appear normal in size. Bones: No suspicious bony lesions. IMPRESSION: Gastric distension, consistent with gastric outlet obstruction. Dictated by: Rae Oneal M.D. on 09/07/2021 at 1:46 Approved by: Rae Oneal M.D. on 09/07/2021 at 1:47
[2021-09-07] MEDS: FUROSEMIDE 40 MG/4 ML VIAL IV ×2 (01:48→08:52)
[2021-09-07] MEDS: OXYCODONE IR 5 MG TABLET 10 MG PO (01:49)
[2021-09-07] MEDS: ONDANSETRON 4 MG/2 ML INJ IV (01:57)
--- NOTE | 2021-09-07 02:33 | DI.CT.S_ITS ---
PROCEDURE: CT ABDOMEN PELVIS W CON INDICATIONS: gastric outlet obstruction, post op complicated viviane TECHNIQUE: After the administration of intravenous contrast, axial sections acquired from the lung bases to the pubic symphysis. Coronal and sagittal reformats were performed. For radiation dose reduction, the following was used: automated exposure control, adjustment of mA and/or kV according to patient size. COMPARISON: [facility], CT, CT CHEST ABD PEL W CON, 04/05/2020, 10:18. [facility], CT, CT ABDOMEN PELVIS W CON, 08/04/2021, 13:21. FINDINGS: ABDOMEN: Lung bases: Scattered subsegmental atelectasis and/or scarring. No focal consolidation. Heart: No pericardial effusion. Normal in size. Liver: Normal. Gallbladder: Postsurgical changes in the gallbladder fossa. There is cystic appearing structure in the gallbladder fossa on image 28/2 which may represent post operative hematoma/seroma, gallbladder remnant, biloma versus inflammatory phlegmon or developing abscess. Recommend correlation to surgical history. This measures approximately 3.3 x 1.9 cm. Elsewhere, no specific or focal fluid collection to suggest abscess/biloma Bile ducts: No pathologic dilatation. Pancreas: 7 mm possible cystic structure seen in the tail involving the pancreas on image 34/2, technically indeterminate and too small to characterize accurately. Spleen: Mild splenomegaly. There are capsular calcifications Adrenals: Normal. Kidneys and Ureters: Normal. Stomach and duodenum: Enteric tube is present. Bowel: Scattered air-fluid levels and diffuse dilated small bowel loops. A specific transition point not identified at this time. The colon is relatively decompressed. Incidental colonic diverticulosis noted. The appendix is not well visualized. Other: No free fluid or air. Abdominal nodes: Mildly prominent portal caval and gastrohepatic lymph nodes which could be reactive although technically nonspecific. Aorta and IVC: Normal in size. Scattered atheromatous calcifications in the aorta. Ventral wall: Normal. Incidentally noted mild gynecomastia PELVIS: Bladder and reproductive: Unremarkable. Inguinal region: No hernia. Pelvic nodes: Normal. Bones: No suspicious bony lesions. No vertebral body compression fractures. Diffuse spondylytic changes and facet disease. IMPRESSION: Postsurgical changes related to cholecystectomy. Small nonspecific cystic or complex focal fluid collection involving the gallbladder fossa with differential as above. These could be postsurgical or inflammatory changes. Prominent small bowel loops with scattered air-fluid levels. Findings probably related to adynamic ileus although cannot exclude developing obstruction recommend clinical correlation. If patient's symptoms do not improve, continued surveillance with abdominal series radiographs could be performed. Additional chronic and incidental findings as above. Findings concordant with the preliminary study interpretation provided at the time of the exam. Dictated by: Dileep Weaver M.D. on 09/07/2021 at 8:07 Approved by: Dileep Weaver M.D. on 09/07/2021 at 8:18
[2021-09-07] MEDS: LIDOCAINE 2% (GLYDO) 6 ML GEL TOP (02:39)
[2021-09-07] MEDS: HYDROMORPHONE 1 MG INJ IV (02:39)
[2021-09-07] MEDS: HYDROMORPHONE 0.5 MG INJ IV ×2 (03:58→05:25)
[2021-09-07 05:11] LABS: COVID19 - ADMIT (NP swab/PCR) Negative (Negative)
[2021-09-07] MEDS: HYDROMORPHONE 0.5 MG INJ 1 MG IV ×7 (06:17→23:31)
--- NOTE | 2021-09-07 07:18 | P.HP_ITS ---
History of Present Illness History of Present Illness Date Patient Seen: 09/07/21 Time Patient Seen: 06:30 Chief complaint: Abd Pain Narrative: Elroy Larkin is 61-year-old man with a history of chronic pancreatitis, alcoholic cirrhosis, no alcohol use for over a year who presented to the ED with scrotal swelling. While he was being assessed in the ED, he began to develop abdominal pain and increasing distention. He is POD #11 status post laparoscopic cholecystectomy that was then transitioned to a subtotal cholecystectomy on August [address] Dowell after being admitted from the emergency department with abdominal pain.?Then on August 28, postop day#1 there is a concern for a question of of bile leak, a need for an ERCP, and was transferred to [facility].? HIDA scan there was negative for a bile leak and ERCP was not done. NG tube was placed and eventually he had a number of bowel movements and seem to be doing well recovering after his postop ileus.? IBAN drain fluid did have an elevated cell count so the possibility of peritonitis was raised and the patient was empirically treated with Zosyn.? He was given large doses of oxycodone for the 1st few days resulting in even slower bowel transit.?IBAN drains were removed and recommendation is that sutures were to come out on or about September 15.? He was discharged from [facility] on 09/05 and today presents to [facility] the late evening of 09/06 complaining of significant swelling of his penis and scrotum despite over at 10 lb weight gain despite resuming his regular home medications of oral Lasix 40 mg and spironolactone 25 mg daily since discharge.? Today (the ) he presented to the ED complaining of scrotal swelling and increasing abdominal pain that is not able to be controlled with the oral oxycodone that he discharged with to home. He states he has been only taking oxycodone 5 mg on average 2 per day. He is somewhat nauseated but has not vomited.? He complains of right lower quadrant abdominal pain and states that it is worse that has been when he was in the hospital.? Denies chest pain, dyspnea, cough, fever, chills.? He has no headache and no acute neurologic complaints. In the emergency department they did an x-ray whose read was concerning for gastric outlet obstruction following complicated postop cholecystectomy. CT was done and there was no findings of gastric outlet obstruction however there was concern for postoperative ileus and possible evolving small-bowel obstruction. In the emergency department they did place an NG to and drained out about 800 cc of combination bile and stool colored fluid. He has also been given Dilaudid for pain. Patient is afebrile, blood pressure 112/80, heart rate 82, respiratory rate 16, oxygen saturation 91% on room air, he weighs 127 kg with a BMI of 35.3. CBCs unremarkable but he does have a platelet count of 106, is a very mild left shift of 7800, his INR is 1.2, sodium 135, rest of his chemistries are unremarkable, he has a mild elevated glucose of 117, calcium is 8.3, lipase 250, UA is negative for a UTI, COVID-19 PCR is negative. Morning labs are pending with the addition of liver enzymes. Patient History Medical History Alcoholism in remission Cervical stenosis of spine Chronic thoracic spine pain Dyspepsia History of rib fracture History of stroke Hx of angioedema Hypertension Injury of hip, right Intermittent lightheadedness Surgical History History of eye surgery History of Blanche fundoplication History of splenectomy Hx laparoscopic cholecystectomy S/P cholecystectomy Status post cervical spinal fusion Family & Social History Family History Father Congestive heart failure Lymph edema Mother Perforated sigmoid colon Brother Stroke Sister Hypertension Social History: household members significant other Safety & Behavioral: Feels Safe in Current Yes Environment Tobacco & Substance use: Tobacco type cigarettes Smoking Status Current every day smoker alcohol intake former alcohol intake frequency 0-2 drinks per day Substance Use Type does not use Meds Home Medications and Allergies Home Medications Medication Instructions Recorded Confirmed Type famotidine 20 mg tablet 20 mg PO BID 01/10/20 08/27/21 History furosemide 40 mg tablet 40 mg PO DAILY 08/27/21 08/27/21 History spironolactone 100 mg tablet 100 mg PO DAILY 08/27/21 08/27/21 History Allergies Allergy/AdvReac Type Severity Reaction Status Date / Time lisinopril Allergy Severe Swelling Verified 07/02/21 10:02 of Lip/Tongue/Throat citalopram [CITALOPRAM] Allergy Unknown SEIZURES Verified 07/02/21 10:02 hydrocodone [HYDROCODONE] AdvReac Mild N/V Verified 07/02/21 10:02 Review of Systems Review of Systems ROS: Yes All systems reviewed with the patient and are negative except as other myrick documented Exam Vital Signs (past 8 hours): - 09/07/21 03:25 09/07/21 03:30 09/07/21 04:00 Pulse Rate 87 86 88 Blood Pressure 120/74 121/73 115/76 Pulse Oximetry 95 93 95 09/07/21 04:30 09/07/21 05:00 Pulse Rate 90 82 Blood Pressure 112/72 112/80 Pulse Oximetry 93 91 Oxygen Delivery Method Room Air Narrative Exam Narrative: Gen: Alert, oriented, well-developed 61 y.o. male, mildly distressed HEENT: normocephalic, atraumatic, conjunctiva clear, sclera non-icteric, NG tube draining dark fluid oral mucosa pink and moist Neck: supple, full ROM, no JVD, trachea is midline Resp: Lungs CTA, non-labored breathing CV: RRR, no murmur or rubs Abd: distended, non-tender, hypoactive BTs Skin: well healing laparascopic surgical scars on abdomen, bruising surrounding the umbilicus, Neuro: Alert and oriented X 4 w/no focal deficits. Speech clear and coherent. Extremities: +1 pitting edema, moves all 4 extremities, is ambulatory, negative Tyrell?s sign Psyche: normal mood and affect. Objective Labs Result Diagrams: 09/06/21 22:25 09/06/21 22:25 Labs: Laboratory Results - last 24 hr 09/06/21 09/06/21 09/06/21 22:25 22:25 22:25 WBC 10.2 RBC 4.72 Hgb 14.8 Hct 43.5 MCV 92.1 MCH 31.3 MCHC 34.0 RDW 13.6 Plt Count 106 L Neut % (Auto) 76.2 H Lymph % (Auto) 13.0 L [place] % (Auto) 8.3 Eos % (Auto) 2.1 Baso % (Auto) 0.4 Neut # (Auto) 7800 H Lymph # (Auto) 1300 [place] # (Auto) 800 Eos # (Auto) 200 Baso # (Auto) 0 PT 12.8 H INR 1.2 APTT 30 Sodium 135 L Potassium 4.0 D Chloride 101 Carbon Dioxide 31 BUN 10 Creatinine 1.13 Estimated GFR > 60.0 BUN/Creatinine Ratio 8.8 Glucose 117 H Calcium 8.3 L Total Bilirubin 0.8 AST 29 ALT 27 Alkaline Phosphatase 87 Total Protein 6.3 Albumin 3.2 L Globulin 3.1 Albumin/Globulin Ratio 1.0 Lipase 250 Urine RBC Urine WBC Urine Bacteria Ur Culture Indicated? SARS-CoV-2 (PCR) 09/07/21 09/07/21 00:05 03:25 WBC RBC Hgb Hct MCV MCH MCHC RDW Plt Count Neut % (Auto) Lymph % (Auto) [place] % (Auto) Eos % (Auto) Baso % (Auto) Neut # (Auto) Lymph # (Auto) [place] # (Auto) Eos # (Auto) Baso # (Auto) PT INR APTT Sodium Potassium Chloride Carbon Dioxide BUN Creatinine Estimated GFR BUN/Creatinine Ratio Glucose Calcium Total Bilirubin AST ALT Alkaline Phosphatase Total Protein Albumin Globulin Albumin/Globulin Ratio Lipase Urine RBC None seen Urine WBC None seen Urine Bacteria None seen Ur Culture Indicated? Cult not indicated SARS-CoV-2 (PCR) Negative Assessment & Plan Assessment & Plan narrative: Elroy Larkin is admitted for postoperative ileus and anasarca. 1. Postoperative ileus * Patient had an NG-tube placed in the ED and it is currently draining brown fluid with good output * He will be NPO * Surgery is consulting * Attempts will be made to wean the patient off of high-dose narcotics as this is likely contributing to his ileus * He is written for IV morphine and IV toradal and will need to be tapored to an oral non-narcotic. 2. Generalized edema, anasarca, present on admission * Patient normally takes oral Lasix and spironolactone and he is written for IV Lasix 40 mg daily * Recommend daily weights. 3. Thrombocytopenia, lightly chronic * His platelet count is currently 106 continue to monitor. There have been times when his platelet count has been as low as 50s and 60s within the past 6 months. * Monitor for potential of YAMILETH VTE Prophylaxis: Wells risk score 1.5 Bilateral SCDs, heparin 5000 units subQ bid Patient is admitted to the inpatient service due to the severity of disease, ri sks of further disease progression and this stay is expected to exceed 2 midnights. FEN: IV fluids: saline lock, diet: NPO, labs: CBC, C/BMP, liver enzymes, Mag, PT/INR Consultants Dr. Desir, care and involvement in the patient?s care is appreciated. Dispo: unknown at this time Code status: Full code as discussed with the patient. [X] I have utilized all available immediate resources to obtain, update, or review of the patient's current medications COVID-19 COVID-19 status: Negative Result date/Date tested (Pos, Neg/Pending): 09/07/21 Time Spent With Patient Critical Care time: I spent a total of [] minutes of critical care time on this patient's care today; this time is exclusive of procedural time. Scores Wells' Criteria for PE Clinical signs and symptoms of DVT: No PE is #1 Dx or equally likely: No Heart rate > 100: No Immobilization at least 3 days or surg in previous 4 weeks: Yes History of PE or DVT: No Hemoptysis: No Malignancy w/Treatment within 6 months or palliative: No Wells' PE Score total: 1.5 Quality VTE Deep Vein Thrombosis/Pulmonary Embolism Present on Admission: No MIPS - Admit I confirm the patient?s Advance Care Plan is present, Code status is documented, Surrogate decision maker is in patient?s record [If Yes, STOP here]: Yes MIPS - DC The patient has current or prior documentation of left ventricular ejection fraction (LVEF) less than 40%, or moderate or severely depressed left ventri cular systolic function.: No
[2021-09-07] MEDS: HEPARIN 5,000 UNIT/ML VIAL 5000 UNIT SUBCUT ×2 (08:51→21:10)
[2021-09-07] MEDS: FAMOTIDINE 20 MG/2 ML VIAL IV ×2 (08:52→21:10)
[2021-09-07] MEDS: KETOROLAC 30 MG/ML VIAL IV ×2 (09:26→17:34)
--- NOTE | 2021-09-07 11:51 | PM.CN ---
History of Present Illness Consult details Date Patient Seen: 09/07/21 Time Patient Seen: 11:51 Chief complaint: Ileus Narrative: The patient is a 61-year-old man who had a laparoscopic subtotal cholecystectomy by Dr. Dowell about 2 weeks ago. According to the operative report he had a severe case of acute cholecystitis. There was concern for a postoperative bile leak and he was transferred for a ERCP however HIDA scan at that outside hospital showed no evidence of a bile leak. He was eventually discharged from the outside hospital and returns now because of concerns for scrotal swelling. He was found on x-ray to have a very distended air-filled stomach and an NG tube was placed with significant return of gastric contents. He had been passing gas but is not currently. Meds Home Medications and Allergies Home Medications Medication Instructions Recorded Confirmed Type famotidine 20 mg tablet 20 mg PO BID 01/10/20 08/27/21 History furosemide 40 mg tablet 40 mg PO DAILY 08/27/21 08/27/21 History spironolactone 100 mg tablet 100 mg PO DAILY 08/27/21 08/27/21 History Allergies Allergy/AdvReac Type Severity Reaction Status Date / Time lisinopril Allergy Severe Swelling Verified 07/02/21 10:02 of Lip/Tongue/Throat citalopram [CITALOPRAM] Allergy Unknown SEIZURES Verified 07/02/21 10:02 hydrocodone [HYDROCODONE] AdvReac Mild N/V Verified 07/02/21 10:02 Exam Vital Signs (past 8 hours): - 09/07/21 04:00 09/07/21 04:30 09/07/21 05:00 Pulse Rate 88 90 82 Respiratory Rate Blood Pressure 115/76 112/72 112/80 Pulse Oximetry 95 93 91 09/07/21 05:30 09/07/21 05:31 09/07/21 06:00 Pulse Rate 85 85 76 Respiratory Rate Blood Pressure 116/80 108/68 Pulse Oximetry 94 94 91 09/07/21 06:30 09/07/21 07:00 09/07/21 07:30 Pulse Rate 78 74 69 Respiratory Rate Blood Pressure 111/71 101/61 109/62 Pulse Oximetry 92 90 L 89 L 09/07/21 08:00 09/07/21 08:30 09/07/21 09:00 Pulse Rate 69 68 72 Respiratory Rate 18 Blood Pressure 103/70 104/70 112/74 Pulse Oximetry 96 95 96 09/07/21 09:30 09/07/21 10:00 09/07/21 10:01 Pulse Rate 76 70 66 Respiratory Rate 18 Blood Pressure 119/77 95/65 Pulse Oximetry 97 95 96 Oxygen Delivery Method Room Air Oxygen Flow Rate 2 Narrative Exam Narrative: Distended, without peritonitis NG tube is in place Objective Labs Result Diagrams: 09/06/21 22:25 09/06/21 22:25 Labs: Laboratory Results - last 24 hr 09/06/21 09/06/21 09/06/21 22:25 22:25 22:25 WBC 10.2 RBC 4.72 Hgb 14.8 Hct 43.5 MCV 92.1 MCH 31.3 MCHC 34.0 RDW 13.6 Plt Count 106 L Neut % (Auto) 76.2 H Lymph % (Auto) 13.0 L [place] % (Auto) 8.3 Eos % (Auto) 2.1 Baso % (Auto) 0.4 Neut # (Auto) 7800 H Lymph # (Auto) 1300 [place] # (Auto) 800 Eos # (Auto) 200 Baso # (Auto) 0 PT 12.8 H INR 1.2 APTT 30 Sodium 135 L Potassium 4.0 D Chloride 101 Carbon Dioxide 31 BUN 10 Creatinine 1.13 Estimated GFR > 60.0 BUN/Creatinine Ratio 8.8 Glucose 117 H Calcium 8.3 L Total Bilirubin 0.8 AST 29 ALT 27 Alkaline Phosphatase 87 Total Protein 6.3 Albumin 3.2 L Globulin 3.1 Albumin/Globulin Ratio 1.0 Lipase 250 Urine RBC Urine WBC Urine Bacteria Ur Culture Indicated? SARS-CoV-2 (PCR) 09/07/21 09/07/21 00:05 03:25 WBC RBC Hgb Hct MCV MCH MCHC RDW Plt Count Neut % (Auto) Lymph % (Auto) [place] % (Auto) Eos % (Auto) Baso % (Auto) Neut # (Auto) Lymph # (Auto) [place] # (Auto) Eos # (Auto) Baso # (Auto) PT INR APTT Sodium Potassium Chloride Carbon Dioxide BUN Creatinine Estimated GFR BUN/Creatinine Ratio Glucose Calcium Total Bilirubin AST ALT Alkaline Phosphatase Total Protein Albumin Globulin Albumin/Globulin Ratio Lipase Urine RBC None seen Urine WBC None seen Urine Bacteria None seen Ur Culture Indicated? Cult not indicated SARS-CoV-2 (PCR) Negative [facility] Medical History Alcoholism in remission Cervical stenosis of spine Chronic thoracic spine pain Dyspepsia History of rib fracture History of stroke Hx of angioedema Hypertension Injury of hip, right Intermittent lightheadedness Surgical History History of eye surgery History of Blanche fundoplication History of splenectomy Hx laparoscopic cholecystectomy S/P cholecystectomy Status post cervical spinal fusion Family History Father Congestive heart failure Lymph edema Mother Perforated sigmoid colon Brother Stroke Sister Hypertension Social History household members: significant other Tobacco & Substance Use Smoking Status: Current every day smoker alcohol intake: former Assessment & Plan Assessment and plan (1) Ileus following gastrointestinal surgery: Status: Acute Plan Postoperative ileus following laparoscopic subtotal cholecystectomy for severe acute cholecystitis. Once he is passing gas consistently again the NG tube can be removed. At that point, he can start clear liquid diet and advance as tolerated. I will not see him routinely unless requested. Time Spent With Patient Critical Care time: I spent a total of [] minutes of critical care time on this patient's care today; this time is exclusive of procedural time.
--- NOTE | 2021-09-07 12:43 | PC.NURSE ---
right abdomen surgical site with 2 sutures intact. pt asked for a dressing change so he didn't start to pick at it. area without redness. cleansed with hibiclens swab, non adherant dressing and medipore dressing on top.
--- NOTE | 2021-09-07 12:47 | PC.NURSE ---
ngt to low intermittent suction. pt reports he feels so much better and that his stomach is softer
--- NOTE | 2021-09-07 13:42 | CM.DANOTE ---
DCP Assessment Note Patient is 61 y/o male who presents to ED/ due to concern for abdominal pain. Patient presented to the ED at on 08/27/21 with similar concerns and had laparoscopic gall bladder surgery. During ED stay an NG tube was placed for patient and patient is currently NPO. Patient has Medicare and Medicaid insurance. Patient's PCP is Dr. Maravilla, patient states that he does not see his PCP regularly and is not interested in having SUPERVISOR PURIFICATION schedule PCP appt for patient. Patient has f/u post op appt on 09/17/[address] Rajan at [facility]. SUPERVISOR PURIFICATION meets with patient and patient presents as A/Ox4. Patient endorses that he is independent with ADLs at baseline. Patient endorses that he resides in [place], has a roommate that resides downstairs and his fiance is an CLINIQUE COUNTER MANAGER that stays with him regularly. Patient endorses that last year at [facility] his kidneys, pancreas and liver shut down. 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 Patient states that he stopped drinking over a year ago and started drinking again but has been clean and sober for several months. Patient endorses that he stopped drinking cold turkey and does not engage in AA or CHRIS outpatient. Patient denies interest in CHRIS outpatient services. Patient states upon d/c to home he can be picked up by family. Plan: DCP to f/u with POC for patient. DAYSI Torres Discharge Planning/Care Management CM Discharge Assessment Start: 09/07/21 13:39 Freq: Status: Active Protocol: Document 09/07/21 13:39 LN (Rec: 09/07/21 13:41 LN [id number]) Discharge Planning Assessment Assigned Bedspread Cutter DAYSI Torres Advance Directives? No Advance Directives on File No History Provided By Patient,Medical Record Has Patient been admitted in last 30 Yes days? Comment Patient was admitted on and discharged on 08/28/21 Prior Living Arrangements House Household Members significant other,other Comment Roommate lives downstairs Type of transporation used prior to Drives own vehicle admit Independent with ADL's Yes Is patient alert and oriented? Yes Caregiver for Another No Barriers to Discharge No Comment Patient does have history of alcohol abuse, but stopped drinking in June. Discharge Plan Home Transportation Arrangement Family Review Status In Process Please Provide Date Initial DC 09/07/21 Assessment Was Performed Next Review Type Continued Stay Review
[2021-09-07 14:47] LABS: Add Manual Diff / Slide Review NO; Basophils Absolute Auto 100 /uL (0-100); Basophils Percent Auto 0.9 % (0-2); Eosinophils Absolute Auto 300 /uL (0-450); Eosinophils Percent Auto 3.2 % (2-4); Hematocrit 41.7 % (41-53); Hemoglobin 14.3 g/dL (13.5-17.5); Lymphocytes Absolute Auto 1500 /uL (1100-4500); Lymphocytes Percent Auto 17.2 % (25-40); Mean Corpuscular HGB Conc 34.3 % (30-36); Mean Corpuscular Hemoglobin 31.6 PG (26-34); Monocytes Absolute Auto 800 /uL (0-900); Monocytes Percent Auto 9.2 % (3-14); Neutrophils Absolute Auto 5900 /uL (1500-7000); Neutrophils Percent Auto 69.5 % (50-75); Platelet Count 102 X10^3/uL (150-400); Red Blood Cell Count 4.53 X10^6/uL (4.5-5.9); Red Cell Distribution Width 13.4 % (11.6-14.8); White Blood Cell Count 8.6 X10^3/uL (4.5-11.0)
[2021-09-07 14:54] LABS: INR 1.2 (0.9-1.3); Prothrombin Time 13.6 SECONDS (10.1-12.7)
[2021-09-07 14:57] LABS: BUN Creatinine Ratio 8.9 (6-22); Blood Urea Nitrogen 12 mg/dL (9-20); Calcium 8.2 mg/dL (8.4-10.2); Carbon Dioxide 32 mmol/L (22-32); Chloride 99 mmol/L (98-107); Estimated Glomerular Filt Rate 53.7 mL/min (>60); Glucose 91 mg/dL (80-110); HEMOLYSIS < 15 (0-50); Potassium 3.7 mmol/L (3.4-5.1); Sodium 137 mmol/L (137-145)
[2021-09-07 15:01] LABS: Alanine Aminotransferase 27 IU/L (<50); Albumin Globulin Ratio 1.1 (1.0-2.8); Alkaline Phosphatase 83 U/L (38-126); Aspartate Aminotransferase 29 IU/L (17-59); Bilirubin Total 0.6 mg/dL (0.2-1.3); Bilirubin Unconjugated 0.6 mg/dL (0.0-1.1); Globulin 2.7 g/dL (1.7-4.1); HEMOLYSIS < 15 (0-50); Total Protein 5.7 g/dL (6.3-8.2)
[2021-09-07 15:10] LABS: NT-proBNP (BNP-Adult 18+) 88 pg/mL (<125)
[2021-09-08 02:14] VITALS: BP 102/66; PULSE 70; RESP 16; TEMP 36.2; O2SAT 97
[2021-09-08] MEDS: HYDROMORPHONE 1 MG INJ IV ×6 (02:17→15:27)
[2021-09-08] MEDS: ONDANSETRON 4 MG/2 ML INJ IV (05:48)
[2021-09-08 06:07] VITALS: BP 123/74; PULSE 71; RESP 16; TEMP 36.5; O2SAT 97
[2021-09-08 07:00] VITALS: O2SAT 95
[2021-09-08 07:45] VITALS: BP 105/71; PULSE 71; RESP 18; TEMP 36.6; O2SAT 95
--- NOTE | 2021-09-08 09:08 | CM.DANOTE ---
Addendum entered by Heidi Myles R.N. 09/08/21 10:09: Added physical therapy orders per hospitalist, discussed during team rounds. Original Note: DCP: Case received, EMR reviewed and met with patient. It is also noted that AUTOMATIC DRILL OPERATOR, Bonita, had met with patient yesterday as well. Information regarding patient's baseline activity and history was obtained by AUTOMATIC DRILL OPERATOR note. This disability case manager also met with patient today. Introduced self and role, and DCP assessment was completed. Patient is a 61 year old male who admitted yesterday morning to the care of the hospitalist team. PCP: Dr. Maravilla. Payer: confirmed: Medicare/Medicaid. Patient came to the hospital via ambulance secondary to having right lower quadrant pain, as well as swelling of his scrotal area. Patient had recently been here at the hospital on 08-27 for laparoscopic cholecystectomy, and was then transferred to [facility] secondary to further complications. Patient's current diagnosis is postoperative ileus. He originally had NG tube placed upon admittio due to nausea. At this time, he has no NG tube, and was eating when this enterprise resource planner met him this morning. According to AUTOMATIC DRILL OPERATOR notes, patient does not normally see his PCP, and is not interested in having AUTOMATIC DRILL OPERATOR schedule him appointment. He also indicated that avila had cirrhosis caused by ETOH, and thaat he stopped drinking over a year ago, and recently started drinking, but has been clean and sober for several months. He also mentioned to AUTOMATIC DRILL OPERATOR, does not engage in AA or CHRIS, and is not interested in outpatient services. Patient is independent at his baseline. He resides with his significant other, who is an CHAIR CAR ATTENDANT named Brisa. He does confirm that Dr. Maravilla is still his primary care provider. Confirmed with this DC Online Activist that he no longer drinks, only did it at times because of his pain. 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 Patient also mentioned being at [facility], almost in a coma due to the amount of prednisone he was given. P: DCP to continue to follow. Patient should be able to go home when he is deemed medically stable. Heidi Myles RN/Export Clerk Discharge Planning/Care Management CM Discharge Assessment Start: 09/07/21 13:39 Freq: Status: Active Protocol: Document 09/07/21 13:39 LN (Rec: 09/07/21 13:41 LN [id number]) Discharge Planning Assessment Assigned Nut Threader DAYSI Torres Advance Directives? No Advance Directives on File No History Provided By Patient,Medical Record Has Patient been admitted in last 30 Yes days? Comment Patient was admitted on and discharged on 08/28/21 Prior Living Arrangements House Household Members significant other,other Comment Roommate lives downstairs Type of transporation used prior to Drives own vehicle admit Independent with ADL's Yes Is patient alert and oriented? Yes Caregiver for Another No Barriers to Discharge No Comment Patient does have history of alcohol abuse, but stopped drinking in June. Discharge Plan Home Transportation Arrangement Family Review Status In Process Please Provide Date Initial DC 09/07/21 Assessment Was Performed Next Review Type Continued Stay Review Document 09/08/21 09:07 (Rec: 09/08/21 09:08 [id number]) Discharge Planning Assessment Assigned Nut Threader DAYSI Torres/Heidi Myles RN/Export Clerk Advance Directives? No Advance Directives on File No History Provided By Patient,Medical Record Has Patient been admitted in last 30 Yes days? Comment Patient was admitted on and discharged on 08/28/21 Prior Living Arrangements House Household Members significant other,other Comment Roommate lives downstairs Type of transporation used prior to Drives own vehicle admit Independent with ADL's Yes Is patient alert and oriented? Yes Caregiver for Another No Barriers to Discharge No Comment Patient does have history of alcohol abuse, but stopped drinking in June. Discharge Plan Home Transportation Arrangement Family Additional Comment Could possibly speak to patient about outside resources for alcohol abuse when he is more stable. Whiteboard Updated in Patient Room with Yes name and ext. # of Nut Threader Review Status In Process Please Provide Date Initial DC 09/07/21 Assessment Was Performed Next Review Type Continued Stay Review
[2021-09-08 09:10] LABS: Add Manual Diff / Slide Review NO; Basophils Absolute Auto 0 /uL (0-100); Basophils Percent Auto 0.4 % (0-2); Eosinophils Absolute Auto 300 /uL (0-450); Eosinophils Percent Auto 2.8 % (2-4); Hematocrit 42.5 % (41-53); Hemoglobin 14.6 g/dL (13.5-17.5); Lymphocytes Absolute Auto 1000 /uL (1100-4500); Lymphocytes Percent Auto 9.2 % (25-40); Mean Corpuscular HGB Conc 34.3 % (30-36); Mean Corpuscular Hemoglobin 31.7 PG (26-34); Mean Corpuscular Volume 92.2 fL (80-100); Monocytes Absolute Auto 800 /uL (0-900); Monocytes Percent Auto 7.4 % (3-14); Neutrophils Absolute Auto 9100 /uL (1500-7000); Neutrophils Percent Auto 80.2 % (50-75); Platelet Count 109 X10^3/uL (150-400); Red Blood Cell Count 4.61 X10^6/uL (4.5-5.9); Red Cell Distribution Width 13.6 % (11.6-14.8); White Blood Cell Count 11.3 X10^3/uL (4.5-11.0)
[2021-09-08 09:14] LABS: INR 1.2 (0.9-1.3); Prothrombin Time 12.9 SECONDS (10.1-12.7)
[2021-09-08] MEDS: FAMOTIDINE 20 MG/2 ML VIAL IV (09:21)
[2021-09-08] MEDS: HEPARIN 5,000 UNIT/ML VIAL 5000 UNIT SUBCUT (09:21)
[2021-09-08] MEDS: FUROSEMIDE 40 MG/4 ML VIAL IV (09:21)
[2021-09-08 09:23] LABS: BUN Creatinine Ratio 13.4 (6-22); Blood Urea Nitrogen 17 mg/dL (9-20); Calcium 8.2 mg/dL (8.4-10.2); Carbon Dioxide 33 mmol/L (22-32); Chloride 98 mmol/L (98-107); Estimated Glomerular Filt Rate 57.7 mL/min (>60); Glucose 90 mg/dL (80-110); HEMOLYSIS < 15 (0-50); Potassium 3.9 mmol/L (3.4-5.1); Sodium 137 mmol/L (137-145)
[2021-09-08 09:26] LABS: Alanine Aminotransferase 33 IU/L (<50); Albumin 3.1 g/dL (3.5-5.0); Alkaline Phosphatase 87 U/L (38-126); Aspartate Aminotransferase 41 IU/L (17-59); Bilirubin Total 0.9 mg/dL (0.2-1.3); Bilirubin Unconjugated 0.7 mg/dL (0.0-1.1); HEMOLYSIS < 15 (0-50); Total Protein 6.1 g/dL (6.3-8.2)
--- NOTE | 2021-09-08 10:47 | PM.DS.1 ---
History of Present Illness History of Present Illness Date Patient Seen: 09/08/21 Chief complaint: Ileus Narrative: History of Present Illness History of Present Illness Date Patient Seen:?09/07/21 Time Patient Seen:?06:30 Narrative: Elroy Larkin is 61-year-old man with a history of chronic pancreatitis, alcoholic cirrhosis, no alcohol use for over a year who presented to the ED with scrotal swelling. While he was being assessed in the ED, he began to develop abdominal pain and increasing distention.? He is POD #11 status post laparoscopic cholecystectomy that was then transitioned to a subtotal cholecystectomy on August [address] Dowell after being admitted from the emergency department with abdominal pain.?Then on August 28, postop day#1 there is a concern for a question of of bile leak, a need for an ERCP, and was transferred to [facility].? HIDA scan there was negative for a bile leak and ERCP was not done.? NG tube was placed and eventually he had a number of bowel movements and seem to be doing well recovering after his postop ileus.? IBAN drain fluid did have an elevated cell count so the possibility of peritonitis was raised and the patient was empirically treated with Zosyn.? He was given large doses of oxycodone for the 1st few days resulting in even slower bowel transit.?IBAN drains were removed and recommendation is that sutures were to come out on or about September 15.? He was discharged from [facility] on 09/05 and today presents to [facility] the late evening of 09/06 complaining of significant swelling of his penis and scrotum despite over at 10 lb weight gain despite resuming his regular home medications of oral Lasix 40 mg and spironolactone 25 mg daily since discharge.? Today (the ) he presented to the ED complaining of scrotal swelling and increasing abdominal pain that is not able to be controlled with the oral oxycodone that he discharged with to home.? He states he has been only taking oxycodone 5 mg on average 2 per day.? He is somewhat nauseated but has not vomited.? He complains of right lower quadrant abdominal pain and states that it is worse that has been when he was in the hospital.? Denies chest pain, dyspnea, cough, fever, chills.? He has no headache and no acute neurologic complaints. In the emergency department they did an x-ray whose read was concerning for gastric outlet obstruction following complicated postop cholecystectomy.? CT was done and there was no findings of gastric outlet obstruction however there was concern for postoperative ileus and possible evolving small-bowel obstruction.? In the emergency department they did place an NG to and drained out about 800 cc of combination bile and stool colored fluid.? He has also been given Dilaudid for pain.? Patient is afebrile, blood pressure 112/80, heart rate 82, respiratory rate 16, oxygen saturation 91% on room air, he weighs 127 kg with a BMI of 35.3.? CBCs unremarkable but he does have a platelet count of 106, is a very mild left shift of 7800, his INR is 1.2, sodium 135, rest of his chemistries are unremarkable, he has a mild elevated glucose of 117, calcium is 8.3, lipase 250, UA is negative for a UTI, COVID-19 PCR is negative.? Morning labs are pending with the addition of liver enzymes. Discharge Providers Provider Date of admission: 09/07/21 08:34 Discharge Date: 09/08/21 Primary care physician: Vitor Maravilla MD Consults: 09/07/21 07:05 Consult to Physician Routine Comment: Consulting Provider: Raymond Desir Reason for consultation: post-op ilius Has provider been notified: Yes 09/07/21 13:24 Consult to EQUIPMENT SUPERINTENDENT - [employer] Routine Comment: 09/08/21 10:09 Consult to Physical Therapy Evaluate & Treat Comment: Physician Instructions: Evaluate and Treat Discharge provider: Anita Barry DO Summary Hospital Course Discharge Diagnosis: POSSIBLE POSTOP ILEUS. CONSIDER OPIOID INDUCED CONSTIPATION. RECENT LAP KADIE REPORTED. APPEARS RESOLVED REACTIVE LEUKOCYTOSIS ACUTE KIDNEY INJURY. LIKELY PRERENAL AZOTEMIA OBESITY. BMI OF 33. LIFESTYLE CHANGES RECOMMENDED POSSIBLE BPH. CONTINUE HOME MED CIRRHOSIS OF THE LIVER PER HISTORY POSSIBLE TOBACCO ABUSE ALCOHOL ABUSE PER HISTORY. Hospital Course: THIS IS A 61-YEAR-OLD MALE WHO RECENT LAPAROSCOPIC CHOLECYSTECTOMY PATIENT WAS SEEN IN THE HOSPITAL A WHILE BACK AND SUSPECTED TO HAVE A POSSIBLE BOWEL LEAK WHICH WAS RULED OUT BY MRCP AT A TERTIARY FACILITY PATIENT RETURNED TO THE HOSPITAL AT THIS TIME WITH REPORTED ABDOMINAL DISCOMFORT WHICH WAS SUSPECTED TO BE DUE TO POSSIBLE BT USE. AT THIS TIME, THERE ARE NO SIGNIFICANT CONVINCING EVIDENCE OF THE ILEUS FROM THE RECORD, IT IS NOTED THAT PATIENT WAS ON OXYCODONE POSTOPERATIVELY. THIS COULD HAVE BEEN THE CAUSE OF HIS ABDOMINAL PAIN AND DECREASED BOWEL MOVEMENTS. WE WILL STOP OXYCODONE FOR NOW. STARTED ON TRAMADOL. PATIENT ADVISED TO STAY ON A MECHANICAL SOFT DIET FOR NOW. WILL DEFER TO SURGERY TO ADVANCE DIET TOLERATED MORE CONSISTENCY ONCE INDICATED MILD LEUKOCYTOSIS APPRECIATED DURING THIS HOSPITAL STAY. HOWEVER THERE IS NO SIGN OF EXCESS PROCESS. THIS IS LIKELY REACTIVE ADDITIONAL MANAGEMENT WILL BE DEFERRED TO HIS OUTPATIENT PROVIDERS Status at Discharge Cognitive/behavioral status at discharge: oriented and calm Functional status at discharge: independent ambulation Overall status at discharge: patient is back to baseline Time Spent with Patient Time spent: Greater than 30 minutes Exam Vital Signs (past 8 hours): - 09/08/21 06:07 09/08/21 07:45 Temperature 97.7 F 97.9 F Pulse Rate 71 71 Respiratory Rate 16 18 Blood Pressure 123/74 105/71 Pulse Oximetry 97 95 Oxygen Delivery Method Nasal Cannula Oxygen Flow Rate 2 Narrative Exam Narrative: NO ACUTE DISTRESS. PATIENT IS ALERT ORIENTED X3. VITAL SIGNS STABLE HEAD ATRAUMATIC NORMOCEPHALIC NECK : SUPPLE WITHOUT ADENOPATHY NO CAROTID BRUITS EYE: EOMI, PERRLA, NORMAL CONJUNCTIVA; NO JAUNDICE CHEST: REGULAR RATE. NO RUBS. PMI IS NON DISPLACED. NO MURMURS; NORMAL S1-S2 PULMONARY: DECREASED BS OVER THE BASES. MILD BIBASILAR CRACKLES NOTED; NO INCREASED DULLNESS TO PERCUSSION ABDOMEN: SOFT. NONTENDER. NONDISTENDED. BOWEL SOUNDS ARE PRESENT IN ALL 4 QUADRANTS. NO MASS. EXTREMITIES: NO EDEMA.. NO CYANOSIS CLUBBING NOTED. NEURO: CRANIAL NERVES 2-12 GROSSLY INTACT. NO FOCAL NEUROLOGICAL DEFICIT NOTED. MSK: NORMAL RANGE OF MOTION FOR AGE. NO JOINT EFFUSION. SKIN: NORMAL FOR ETHNICITY; NO ECCHYMOSIS. NO LESION. GOOD TURGOR.; NO RASHES : NORMAL EXTERNAL GENITALIA. PSYCH : APPROPRIATE MOOD AND AFFECT. ALERT AWAKE ORIENTED X3 Objective Labs Result Diagrams: 09/08/21 08:26 09/08/21 08:26 Labs: Laboratory Results - last 24 hr 09/07/21 09/07/21 09/07/21 14:30 14:30 14:30 WBC 8.6 RBC 4.53 Hgb 14.3 Hct 41.7 MCV 92.0 MCH 31.6 MCHC 34.3 RDW 13.4 Plt Count 102 L Neut % (Auto) 69.5 Lymph % (Auto) 17.2 L [place] % (Auto) 9.2 Eos % (Auto) 3.2 Baso % (Auto) 0.9 Neut # (Auto) 5900 Lymph # (Auto) 1500 [place] # (Auto) 800 Eos # (Auto) 300 Baso # (Auto) 100 PT 13.6 H INR 1.2 Sodium 137 Potassium 3.7 Chloride 99 Carbon Dioxide 32 BUN 12 Creatinine 1.35 H Estimated GFR 53.7 L BUN/Creatinine Ratio 8.9 Glucose 91 Calcium 8.2 L Total Bilirubin Conjugated Bilirubin Unconjugated Bilirubin AST ALT Alkaline Phosphatase NT-Pro-B Natriuret Pep Total Protein Albumin Globulin Albumin/Globulin Ratio 09/07/21 09/08/21 09/08/21 14:30 08:26 08:26 WBC 11.3 H RBC 4.61 Hgb 14.6 Hct 42.5 MCV 92.2 MCH 31.7 MCHC 34.3 RDW 13.6 Plt Count 109 L Neut % (Auto) 80.2 H Lymph % (Auto) 9.2 L [place] % (Auto) 7.4 Eos % (Auto) 2.8 Baso % (Auto) 0.4 Neut # (Auto) 9100 H Lymph # (Auto) 1000 L [place] # (Auto) 800 Eos # (Auto) 300 Baso # (Auto) 0 PT INR Sodium 137 Potassium 3.9 Chloride 98 Carbon Dioxide 33 H BUN 17 Creatinine 1.27 H Estimated GFR 57.7 L BUN/Creatinine Ratio 13.4 Glucose 90 Calcium 8.2 L Total Bilirubin 0.6 Conjugated Bilirubin 0.0 Unconjugated Bilirubin 0.6 AST 29 ALT 27 Alkaline Phosphatase 83 NT-Pro-B Natriuret Pep 88 Total Protein 5.7 L Albumin 3.0 L Globulin 2.7 Albumin/Globulin Ratio 1.1 09/08/21 09/08/21 08:26 08:26 WBC RBC Hgb Hct MCV MCH MCHC RDW Plt Count Neut % (Auto) Lymph % (Auto) [place] % (Auto) Eos % (Auto) Baso % (Auto) Neut # (Auto) Lymph # (Auto) [place] # (Auto) Eos # (Auto) Baso # (Auto) PT 12.9 H INR 1.2 Sodium Potassium Chloride Carbon Dioxide BUN Creatinine Estimated GFR BUN/Creatinine Ratio Glucose Calcium Total Bilirubin 0.9 Conjugated Bilirubin 0.0 Unconjugated Bilirubin 0.7 AST 41 ALT 33 Alkaline Phosphatase 87 NT-Pro-B Natriuret Pep Total Protein 6.1 L Albumin 3.1 L Globulin 3.0 Albumin/Globulin Ratio 1.0 PFSH Medical History Alcoholism in remission Cervical stenosis of spine Chronic thoracic spine pain Dyspepsia History of rib fracture History of stroke Hx of angioedema Hypertension Injury of hip, right Intermittent lightheadedness Surgical History History of eye surgery History of Blanche fundoplication History of splenectomy Hx laparoscopic cholecystectomy S/P cholecystectomy Status post cervical spinal fusion Family History Father Congestive heart failure Lymph edema Mother Perforated sigmoid colon Brother Stroke Sister Hypertension Social History household members: significant other and other Smoking Status: Former smoker alcohol intake: former Discharge Plan Discharge Plan Patient Disposition: Home Nursing Discharge Comment: DISCHARGE TO HOME Discharge orders & Medications Prescriptions: New polyethylene glycol 3350 8.5 gram powder in packet 8.5 g PO DAILY Qty: 72 0RF sennosides [Natural Senna Laxative] 8.6 mg tablet 8.6 mg PO BID Qty: 60 0RF tramadol 50 mg tablet 50 mg PO Q4H PRN (Reason: pain) Qty: 20 0RF Continued spironolactone 100 mg tablet 100 mg PO DAILY 0RF Label Comments: TAKE 1 TABLET BY MOUTH EVERY DAY furosemide 40 mg tablet 40 mg PO DAILY 0RF Label Comments: TAKE 1 TABLET BY MOUTH EVERY MORNING tamsulosin [Flomax] 0.4 mg Capsule 0.4 mg PO DAILY 0RF famotidine 20 mg Tablet 20 mg PO BID 0RF Discontinued oxycodone 5 mg Tablet 5 mg PO Q4H PRN (Reason: Pain (Scale Score 4-6)) 0RF Medication counseling provided by Pharmacist: No Follow up/Referrals: Vitor Maravilla MD [Primary Care Provider] - Diet/Activity/Treatments Diet: Low-fat, Low-sodium and Low-cholesterol Diet comment: MECHANICAL SOFT UNTIL ADVANCE BY SURGICAL TEAM Activity: TOLERATED Skin/Wound/Dressing Care Report to your healthcare provider any signs of infection, such as:: chills, fever, night sweats, increased pain and unusual drainage Discharge Data Primary Care Provider: Viotr Maravilla VTE Deep Vein Thrombosis/Pulmonary Embolism Present on Admission: No
[2021-09-08 11:58] VITALS: O2SAT 95
--- NOTE | 2021-09-08 13:30 | PT.IIE ---
Current Diagnoses Ileus, unspecified (09/07/21) Other postprocedural complications and disorders of digestive system (09/07/21) Medical History (Last Reviewed 09/07/21 @ 07:33 by SIRIA Jimenez) Alcoholism in remission Cervical stenosis of spine Chronic thoracic spine pain Dyspepsia History of rib fracture History of stroke Hx of angioedema Hypertension Injury of hip, right Intermittent lightheadedness Physical Therapy Inpatient Evaluation/Re-Eval M1 PT/OT-IP Prior Functional Status Start: 09/08/21 14:56 Freq: NEEDED Status: Active Protocol: Document 09/08/21 13:30 AB (Rec: 09/08/21 15:13 AB [email or web address]) Medical Review Prior Functional Status Medical History Reviewed Yes Communication able to make needs known Mobility and Gait stated that he is independent with all mobilities and ambulation without AD Social History Household Members significant other,other Living Arrangements House Number of Floors (Floors) One Floor Number of Stairs To Enter/Railing? 4 steps L rail + 4 steps B rails to enter the house Home Environment High Toilet,Tub/Shower Home Equipment Tub Transfer Bench,Hand Held Shower,Grab Bars Near Toilet, Grab Bars In Shower Additional Social History Comment stated that his fiance is an PHOTOGRAPHER NEWS pt has an adjustable bed M2 PT-IP Current Condition Start: 09/08/21 14:56 Freq: NEEDED Status: Active Protocol: Document 09/08/21 13:30 AB (Rec: 09/08/21 15:13 AB [email or web address]) Physical Therapy Current Condition Current Condition Evaluation Date 09/08/21 Treatment Diagnosis ileus; h/o chlecystectomy; difficulty in walking Onset Date 09/07/21 M3 PT-IP Subjective Start: 09/08/21 14:56 Freq: NEEDED Status: Active Protocol: Document 09/08/21 13:30 AB (Rec: 09/08/21 15:13 AB [email or web address]) Subjective Physical Therapy Visit Type Type Initial Evaluation Visit Start Time 13:30 Visit Stop Time 14:05 Total Visit Minutes 35 Number of REGISTERED NURSING PROFESSOR Visits 0 Physical Therapy Visit Comments Patient Comments pt hesistant to do PT and stated that it is ridiculous since he just had surgery, will go home and knows what he is capable of doing. informed pt that MD ordered PT it is up to him if he wants to do it or not. pt agreed to do PT. Therapy Pain Assessment Pain When Pain Assessed During Mobility Pain Present Pain Present Pain Reported Location Right Neck Scale Used pain scale not stated lower abdomen Scale Used pain scale not stated M4 PT-IP Mobility and Gait Start: 09/08/21 14:56 Freq: NEEDED Status: Active Protocol: Document 09/08/21 13:30 AB (Rec: 09/08/21 15:13 AB [email or web address]) PT-Bed Mobility Assessment Rolling Level of Assist Standby Assistance Supine to Sit Supine to Sit Standby Assistance,Head of Bed Elevated Sit to Supine Sit to Supine Standby Assistance PT-Transfer Assessment Sit to and From Stand Sit to and from Stand Standby Assistance Equipment Transfer Assistive Device None Orthotic/Prosthetic Devices or Brace: No Transfer Ability Level of Assist Standby Assistance Comments Mobility Comments pt initially does not want to do PT but agreed after education. pt completed supine to sit with HOB elevated SBA. completes sit to stand SBA and ambulated without AD SBA ~ 100 ft. presents with antalgic gait but without LOB. completed up /down steps using B rails SBA and then just 1 rail SBA. pt ambulated back to his room SBA . call light and table within reach. Gait Assessment Gait Gait Assistance Required: Standby Assistance Distance (Feet) 100 Able to Maintain Weight Bearing Status Yes During Gait Assistive Devices Assistive Device None Orthotic/Prosthetic Devices or Brace: No Gait Deviations General Gait Pattern Antalgic,Decreased Stride Length,Decreased Feet Clearance Factors Limiting Gait Function Factors Limiting Gait Function Decreased Activity Tolerance, Decreased Strength,Limited Range of Motion,Pain,Poor Balance Stair Climbing Assessment Evaluation Level of Assist On Stairs Standby Assistance Devices Stair Climbing Assistive Devices Left Railing,Right Railing Technique/Endurance Stair Climbing Direction Ascend and Descend Stair Climbing Technique Step Over Step Number of Steps Climbed 3 Query Text: Stair Climbing Set # Repetitions (reps) 3 Comments Stair Climbing Comments pls refer to mobility section for details PT-Balance Assessment Sitting Balance and Reactions Static Sitting Balance Ability Normal Dynamic Sitting Balance Ability Good Standing Balance and Reactions Static Standing Balance Ability Good Dynamic Standing Balance Ability Good Device Used without AD M5 PT-IP Objective Assessments Start: 09/08/21 14:56 Freq: NEEDED Status: Active Protocol: Document 11/24/21 13:30 AB (Rec: 09/08/21 15:13 AB [email or web address]) Orientation Orientation/Cognition Level of Alertness Alert Orientation Name,Place,Situation Language Function Ability No Deficits Noted Safety Awareness Understands Safety Issues Memory Description No Deficits Noted Coordination Assessment Gross Coordination Gross Coordination WNL Muscle Tone Muscle Tone WNL Yes M6 PT-IP Treatment Start: 09/08/21 14:56 Freq: NEEDED Status: Active Protocol: Document 09/08/21 13:30 AB (Rec: 09/08/21 15:13 AB [email or web address]) Physical Therapy Treatment Education Education Provided Safety M7 PT-IP Assessment and Plan Start: 09/08/21 14:56 Freq: NEEDED Status: Active Protocol: Document 09/08/21 13:30 AB (Rec: 09/08/21 15:13 AB [email or web address]) PT Summary Assessment and Plan Potential Rehabilitation Potential Fair Status of Condition at Evaluation Stable Summary Impairments Pain,ROM,Strength,Balance, Coordination,Sensation,Tone, Cognition,Bed Mobility, Transfers,Gait,Activity Tolerance Assessment Summary pt requiring SBA with mobility without AD. pt plans to go home and spouse to assist him at home. pt may go home when medically stable. Goals Bed Mobility Goal Independent Transfer Goal Independent Gait Goal Independent Gait Distance 250 Other Goals up/down 4 steps L rail + 4 steps B rails mod I Days to Meet Goals 3 Frequency of Treatment Frequency Of Treatment Once a Day Treatment Plan Physical Therapy Treatment Plan Bed Mobility Training,Transfer Training,Gait Training, Therapeutic Exercise,Balance Retraining,Post Op Education, Discharge Planning,Hot or Cold Pack,Neuromuscular Re-ed, Coordination Retraining,Manual Therapy Precautions Abdominal Surgery Precautions Log Roll,Lifting Restrictions, Gait Belt above Incisional Area Recommendations To Nursing Amount of Assist Needed Standby Assistance Discharge Recommendations PT Discharge Recommendations Home with Assistance Transportation Needs at Discharge Private Vehicle
--- NOTE | 2021-09-08 17:00 | PC.NURSE ---
Pt is A&OX3, VSS, afebrile on RA. Slight purpl bruising to abdomen. Abdomen soft, mildy tender to touch. Incisions CDI. + BS, he reports passing gas, and LBM 09/07/21. Pt complains of abdominal pain and requests prn dilaudid 1mg IV PRN frequently and reports pain well controlled. Abdominal, scrotal and BLE's swelling reduced significantly he reports. No edema noted to scrotom or BLE's. Abdomen only mildly distended. MD At bedside this afternoon clearing patient for discharge after tolerating clear meals well this a.m. He denies n/v. Pt verbalizes understanding of discharge instructions, given prescriptions, and follow up care as well as s/sx of infection. He verbalizes understanding of medications, pharmacy reviewing discharge medications. He also acknowledges understanding of taking po diets very soft, and slowly. He is escorted via w/ch with all belongings and prescriptions to private vehicle with spouse at approximately 1540 this afternoon.
== END 2021-09-08 15:37 | disposition home or self-care (01) | DRG 392 ==
LOC: ED 09-07 05:29 → AC 09-07 07:02 → ED 09-07 07:24 → AC 09-07 08:40
PROVIDERS: Nurse Practitioner Family; Admitting Provider Hospitalist; Emergency Provider Emergency Medicine; PCP Internal Medicine; Referring Provider Emergency Medicine; Visit Provider Hospitalist
DX: K59.03 Drug induced constipation (principal); R60.1 Generalized edema; D69.6 Thrombocytopenia, unspecified; T40.2X5A Adverse effect of other opioids, initial encounter; F17.210 Nicotine dependence, cigarettes, uncomplicated; N40.0 Benign prostatic hyperplasia without lower urinary tract symptoms; I10 Essential (primary) hypertension; Z20.822 Contact with and (suspected) exposure to COVID-19
CPT/HCPCS: 36415; 51798; 74018; 74177; 80048; 80053; 80076; 81003; 81015; 83690; 83880; 85025; 85610; 85730; 87635; 94760; 96374; 96375; 97161; 99284; 99285; C9803; J1170; J1644; J1885; J1940; J2405; Q9967

== ENCOUNTER 2021-09-12 03:24 | Emergency (ER) | payer MEDICARE, MEDICAID, SELFPAY ==
[2018-08-01 09:00] VITALS: PULSE 43; RESP 16; O2SAT 96
[2021-09-07 13:52] VITALS: BMI 34.2
[2021-09-12] VITALS (17 sets, daily range): BP systolic 103–161; BP diastolic 70–101; PULSE 68–96; RESP 18; TEMP 36.3; O2SAT 91–98; BMI 32.2
--- NOTE | 2021-09-12 03:29 | ED_ITS ---
HPI - Abdominal Pain <Devang Mccollum DO - Last Filed: 09/17/21 04:49> General Chief Complaint: Abdominal Pain Stated Complaint: ABD Pain Time Seen by Provider: 09/12/21 03:29 History of Present Illness HPI narrative: 61-year-old man with a history of chronic pancreatitis, alcoholic cirrhosis, no alcohol use for over a year presents By [facility] for evaluation of severe central and lower abdominal pain that started at about 10:00 p.m.. He states his pain is worse when he moves and improves with rest. He rates it 15/10. He denies any obvious radiation of his pain. He states it feels similar to when he was seen and evaluated recently for gastric outlet obstruction who presented on August 27 with right upper quadrant abdominal pain.? Was taken to the operating room? by Dr. Dowell for laparoscopic cholecystectomy.? Postop there is a concern for a question of of bile leak and need for ERCP so he was transferred to [facility].? HIDA scan there was negative for a bile leak and ERCP was not done. Today was the first time the patient had consumed anything but clear liquids and states his pain began soon after eating a small amount of burrito and some Zaidi's ice cream Related Data Home Medications Medication Instructions Recorded Confirmed famotidine 20 mg tablet 20 mg PO BID 01/10/20 09/16/21 furosemide 40 mg tablet 40 mg PO DAILY 08/27/21 09/16/21 spironolactone 100 mg tablet 100 mg PO DAILY 08/27/21 09/16/21 tamsulosin 0.4 mg capsule (Flomax) 0.4 mg PO DAILY 09/07/21 09/16/21 Previous Rx's Medication Instructions Recorded polyethylene glycol 3350 8.5 gram 8.5 g PO DAILY #72 ea 09/08/21 oral powder packet sennosides 8.6 mg tablet (Natural 8.6 mg PO BID #60 tab 09/08/21 Senna Laxative) tramadol 50 mg tablet 50 mg PO Q4H PRN #20 tab 09/08/21 oxycodone 5 mg tablet 5 mg PO Q6H PRN #14 tab 09/12/21 Allergies Allergy/AdvReac Type Severity Reaction Status Date / Time lisinopril Allergy Severe Swelling Verified 09/16/21 13:39 of Lip/Tongue/Throat citalopram [CITALOPRAM] Allergy Unknown SEIZURES Verified 09/16/21 13:39 hydrocodone [HYDROCODONE] AdvReac Mild N/V Verified 09/16/21 13:39 Review of Systems <Devang Mccollum DO - Last Filed: 09/17/21 04:49> Review of Systems Narrative: GENERAL: Denies chills, fatigue, malaise, fever, sweats. HEENT: Denies sinus pain, ear pain, sore throat, difficulty swallowing, dizziness. RESPIRATORY: Denies dyspnea, cough, wheezing, hemoptysis, sputum. CARDIOVASCULAR: Denies chest pain, palpitations, orthopnea, edema, GASTROINTESTINAL: See HPI : Denies dysuria, frequency, incontinence, hematuria, urinary retention. MUSCULOSKELETAL: denies weakness, joint pain, or bony pain SKIN: Denies rash, skin lesions, or other NEUROLOGIC: Denies weakness, headache, numbness, change in speech, confusion, seizures, incoordination. PSYCHIATRIC: No concerning psychosocial issues. 12 point review of systems is negative except for those stated above Patient History <Devang Mccollum DO - Last Filed: 09/17/21 04:49> Medical History Alcoholism in remission Cervical stenosis of spine Chronic thoracic spine pain Dyspepsia History of rib fracture History of stroke Hx of angioedema Hypertension Injury of hip, right Intermittent lightheadedness Surgical History History of eye surgery History of Blanche fundoplication History of splenectomy Hx laparoscopic cholecystectomy S/P cholecystectomy Status post cervical spinal fusion Family History Father Congestive heart failure Lymph edema Mother Perforated sigmoid colon Brother Stroke Sister Hypertension Social History household members: significant other and other Smoking Status: Former smoker alcohol intake: former Smoking Status: Former smoker tobacco type: cigarettes alcohol intake frequency: 0-2 drinks per day Alcohol type: hard liquor Substance Use Type: does not use Exam <Devang Mccollum DO - Last Filed: 09/17/21 04:49> Narrative Exam Narrative: GENERAL: [61] year old patient appears stated age. Well-developed patient, in mild distress. Obviously uncomfortable, rubbing his abdomen HEAD: Atraumatic. Normocephalic. EYES: Pupils equal round and reactive. Extraocular motions intact. No scleral icterus. No injection or drainage. ENT: Nose without bleeding, purulent drainage. Throat without erythema, tonsillar hypertrophy or exudate. Airway patent. NECK: Trachea midline. Non tender CARDIOVASCULAR: Regular rate and rhythm without murmurs, gallops, or rubs. RESPIRATORY: Clear to auscultation. Breath sounds equal bilaterally. No wheezes, rales, or rhonchi. GASTROINTESTINAL: Abdomen soft with generalized tenderness mildly distended, incisions are clean, dry and intact. BS present in all quadrants EXTREMITIES: No edema or joint tenderness. BACK: Nontender without deformity or crepitance. No flank tenderness. NEURO: AOx3. SKIN: No rash or erythema of visible areas Initial Vital Signs Initial Vital Signs: Vital Signs Temperature 97.3 F L 09/12/21 03:30 Pulse Rate 88 09/12/21 03:30 Respiratory Rate 18 09/12/21 03:30 Blood Pressure 161/101 H 09/12/21 03:30 Pulse Oximetry 96 09/12/21 03:30 <Poppy David, DO - Last Filed: 09/12/21 18:41> Initial Vital Signs Initial Vital Signs: Vital Signs Temperature 97.3 F L 09/12/21 03:30 Pulse Rate 88 09/12/21 03:30 Respiratory Rate 18 09/12/21 03:30 Blood Pressure 161/101 H 09/12/21 03:30 Pulse Oximetry 96 09/12/21 03:30 Course <Devang Mccollum, DO - Last Filed: 09/17/21 04:49> Orders Ordered: Discontinued Medications Haloperidol (Haloperidol 5 Mg/Ml Vial) 2 mg IV NOW ONE Stop: 09/12/21 05:44 Last Admin: 09/12/21 05:57 Dose: 2 mg Documented by: IVETTE Hydromorphone HCl (Hydromorphone 1 Mg Inj) 1 mg IV NOW ONE Stop: 09/12/21 03:32 Last Admin: 09/12/21 04:26 Dose: 1 mg Documented by: IVETTE Hydromorphone HCl (Hydromorphone 1 Mg Inj) 1 mg IV NOW ONE Stop: 09/12/21 07:53 Last Admin: 09/12/21 08:31 Dose: 1 mg Documented by: RONNI Sodium Chloride (Normal Saline 0.9%) 1,000 mls @ 1,000 mls/hr IV BOLUS ONE Stop: 09/12/21 04:30 Last Infusion: 09/12/21 05:31 Dose: 0 mls/hr Documented by: Admin: 09/12/21 04:26 Dose: 1,000 mls/hr Documented by: IVETTE Pantoprazole Sodium (Pantoprazole 40 Mg Vial) 40 mg IV NOW ONE Stop: 09/12/21 03:32 Last Admin: 09/12/21 04:26 Dose: 40 mg Documented by: IVETTE Reevaluation(s) Reevaluation #1: Patient feeling much better after above-stated therapies Reevaluation #2: patient able to tolerate liquids but at a cracker and pain ramped back up Consultations Additional Consultation(s): 0700 - patient signed out to Dr. David for final disposition Vital Signs Vital signs: Vital Signs - 8 hr 09/12/21 03:30 09/12/21 04:01 09/12/21 04:30 Temperature 97.3 F L Pulse Rate 89 84 86 Respiratory Rate 18 Blood Pressure 147/94 H Pulse Oximetry 96 97 93 09/12/21 05:00 09/12/21 05:30 09/12/21 06:00 Temperature Pulse Rate 77 76 73 Respiratory Rate Blood Pressure Pulse Oximetry 94 93 95 09/12/21 06:04 09/12/21 06:30 09/12/21 07:00 Temperature Pulse Rate 75 80 68 Respiratory Rate Blood Pressure 125/81 120/80 Pulse Oximetry 94 95 96 09/12/21 07:01 09/12/21 07:30 09/12/21 08:07 Temperature Pulse Rate 70 70 96 H Respiratory Rate Blood Pressure 106/78 105/75 Pulse Oximetry 95 95 98 09/12/21 08:08 09/12/21 08:30 09/12/21 08:31 Temperature Pulse Rate 94 H 78 78 Respiratory Rate Blood Pressure 144/87 H 112/70 Pulse Oximetry 98 91 92 09/12/21 09:00 Temperature Pulse Rate 72 Respiratory Rate Blood Pressure Pulse Oximetry 94 <Popyp David, - Last Filed: 09/12/21 18:41> Orders Ordered: Discontinued Medications Haloperidol (Haloperidol 5 Mg/Ml Vial) 2 mg IV NOW ONE Stop: 09/12/21 05:44 Last Admin: 09/12/21 05:57 Dose: 2 mg Documented by: IVETTE Hydromorphone HCl (Hydromorphone 1 Mg Inj) 1 mg IV NOW ONE Stop: 09/12/21 03:32 Last Admin: 09/12/21 04:26 Dose: 1 mg Documented by: IVETTE Hydromorphone HCl (Hydromorphone 1 Mg Inj) 1 mg IV NOW ONE Stop: 09/12/21 07:53 Last Admin: 09/12/21 08:31 Dose: 1 mg Documented by: RONNI Sodium Chloride (Normal Saline 0.9%) 1,000 mls @ 1,000 mls/hr IV BOLUS ONE Stop: 09/12/21 04:30 Last Infusion: 09/12/21 05:31 Dose: 0 mls/hr Documented by: Admin: 09/12/21 04:26 Dose: 1,000 mls/hr Documented by: IVETTE Pantoprazole Sodium (Pantoprazole 40 Mg Vial) 40 mg IV NOW ONE Stop: 09/12/21 03:32 Last Admin: 09/12/21 04:26 Dose: 40 mg Documented by: IVETTE Reevaluation(s) Reevaluation #3: Patient pain had recurred had some improvement with Haldol but then seemed to right back up after having some crackers. He has been tolerating orals but continues to have pain. Patient was seen and independently evaluated by myself. Time: 07:52 Additional Reevaluation(s): 09am: Patient pain has improved but not entirely resolved. He continues to be able to tolerate oral clear liquid diet in the department. Patient has also been able to sleep intermittently here in the department. He has 2 tablets of oxycodone left at [facility] was given a prescription for additional medication. He has a follow-up appointment on September 17. We reviewed together his findings including his labs and CT imaging today, including the changes seen on CT. We discussed that suspect that some of his worsening symptoms or have from having prolonged clear liquid diet and now adding Zaidi's on last night. Patient was asked to return if worsening symptoms and he seems quite comfortable with this plan at that time. Vital Signs Vital signs: Vital Signs - 8 hr 09/12/21 03:30 09/12/21 04:01 09/12/21 04:30 Temperature 97.3 F L Pulse Rate 89 84 86 Respiratory Rate 18 Blood Pressure 147/94 H Pulse Oximetry 96 97 93 09/12/21 05:00 09/12/21 05:30 09/12/21 06:00 Temperature Pulse Rate 77 76 73 Respiratory Rate Blood Pressure Pulse Oximetry 94 93 95 09/12/21 06:04 09/12/21 06:30 09/12/21 07:00 Temperature Pulse Rate 75 80 68 Respiratory Rate Blood Pressure 125/81 120/80 Pulse Oximetry 94 95 96 09/12/21 07:01 09/12/21 07:30 09/12/21 08:07 Temperature Pulse Rate 70 70 96 H Respiratory Rate Blood Pressure 106/78 105/75 Pulse Oximetry 95 95 98 09/12/21 08:08 09/12/21 08:30 09/12/21 08:31 Temperature Pulse Rate 94 H 78 78 Respiratory Rate Blood Pressure 144/87 H 112/70 Pulse Oximetry 98 91 92 09/12/21 09:00 Temperature Pulse Rate 72 Respiratory Rate Blood Pressure Pulse Oximetry 94 MDM - Abdominal Pain <Devang Mccollum DO - Last Filed: 09/17/21 04:49> Lab Data Result diagrams: 09/12/21 03:30 09/12/21 03:30 Labs: Lab Results 09/12/21 09/12/21 09/12/21 Range/Units 03:30 03:30 03:30 WBC 11.0 (4.5-11.0) X10^3/uL RBC 5.11 (4.5-5.9) X10^6/uL Hgb 16.2 (13.5-17.5) g/dL Hct 47.1 (41-53) % MCV 92.1 (80-100) fL MCH 31.7 (26-34) PG MCHC 34.4 (30-36) % RDW 13.5 (11.6-14.8) % Plt Count 154 (150-400) X10^3/uL Neut % (Auto) 76.5 H (50-75) % Lymph % (Auto) 11.1 L (25-40) % [place] % (Auto) 7.2 (3-14) % Eos % (Auto) 4.7 H (2-4) % Baso % (Auto) 0.5 (0-2) % Neut # (Auto) 8400 H (3421-5297) /uL Lymph # (Auto) 1200 (1575-2270) /uL [place] # (Auto) 800 (0-900) /uL Eos # (Auto) 500 H (0-450) /uL Baso # (Auto) 100 (0-100) /uL Sodium 135 L (137-145) mmol/L Potassium 4.3 (3.4-5.1) mmol/L Chloride 99 (98-107) mmol/L Carbon Dioxide 26 (22-32) mmol/L BUN 10 (9-20) mg/dL Creatinine 1.35 H (0.66-1.25) mg/dL Estimated GFR 53.7 L (>60) mL/min BUN/Creatinine Ratio 7.4 (6-22) Glucose 111 H (80-110) mg/dL Lactate 1.3 (0.7-2.1) mmol/L Calcium 9.1 (8.4-10.2) mg/dL Magnesium 1.9 (1.6-2.3) mg/dL Total Bilirubin 0.7 (0.2-1.3) mg/dL AST 38 (17-59) IU/L ALT 34 (<50) IU/L Alkaline Phosphatase 115 (38-126) U/L Total Protein 7.5 (6.3-8.2) g/dL Albumin 4.0 (3.5-5.0) g/dL Globulin 3.5 (1.7-4.1) g/dL Albumin/Globulin Ratio 1.1 (1.0-2.8) SARS-CoV-2 (PCR) (Negative) 09/12/21 Range/Units 09:04 WBC (4.5-11.0) X10^3/uL RBC (4.5-5.9) X10^6/uL Hgb (13.5-17.5) g/dL Hct (41-53) % MCV (80-100) fL MCH (26-34) PG MCHC (30-36) % RDW (11.6-14.8) % Plt Count (150-400) X10^3/uL Neut % (Auto) (50-75) % Lymph % (Auto) (25-40) % [place] % (Auto) (3-14) % Eos % (Auto) (2-4) % Baso % (Auto) (0-2) % Neut # (Auto) (5278-2446) /uL Lymph # (Auto) (4032-6760) /uL [place] # (Auto) (0-900) /uL Eos # (Auto) (0-450) /uL Baso # (Auto) (0-100) /uL Sodium (137-145) mmol/L Potassium (3.4-5.1) mmol/L Chloride (98-107) mmol/L Carbon Dioxide (22-32) mmol/L BUN (9-20) mg/dL Creatinine (0.66-1.25) mg/dL Estimated GFR (>60) mL/min BUN/Creatinine Ratio (6-22) Glucose (80-110) mg/dL Lactate (0.7-2.1) mmol/L Calcium (8.4-10.2) mg/dL Magnesium (1.6-2.3) mg/dL Total Bilirubin (0.2-1.3) mg/dL AST (17-59) IU/L ALT (<50) IU/L Alkaline Phosphatase (38-126) U/L Total Protein (6.3-8.2) g/dL Albumin (3.5-5.0) g/dL Globulin (1.7-4.1) g/dL Albumin/Globulin Ratio (1.0-2.8) SARS-CoV-2 (PCR) Negative (Negative) <Poppy David, DO - Last Filed: 09/12/21 18:41> Lab Data Labs: Lab Results 09/12/21 09/12/21 09/12/21 Range/Units 03:30 03:30 03:30 WBC 11.0 (4.5-11.0) X10^3/uL RBC 5.11 (4.5-5.9) X10^6/uL Hgb 16.2 (13.5-17.5) g/dL Hct 47.1 (41-53) % MCV 92.1 (80-100) fL MCH 31.7 (26-34) PG MCHC 34.4 (30-36) % RDW 13.5 (11.6-14.8) % Plt Count 154 (150-400) X10^3/uL Neut % (Auto) 76.5 H (50-75) % Lymph % (Auto) 11.1 L (25-40) % [place] % (Auto) 7.2 (3-14) % Eos % (Auto) 4.7 H (2-4) % Baso % (Auto) 0.5 (0-2) % Neut # (Auto) 8400 H (0451-9560) /uL Lymph # (Auto) 1200 (3211-5750) /uL [place] # (Auto) 800 (0-900) /uL Eos # (Auto) 500 H (0-450) /uL Baso # (Auto) 100 (0-100) /uL Sodium 135 L (137-145) mmol/L Potassium 4.3 (3.4-5.1) mmol/L Chloride 99 (98-107) mmol/L Carbon Dioxide 26 (22-32) mmol/L BUN 10 (9-20) mg/dL Creatinine 1.35 H (0.66-1.25) mg/dL Estimated GFR 53.7 L (>60) mL/min BUN/Creatinine Ratio 7.4 (6-22) Glucose 111 H (80-110) mg/dL Lactate 1.3 (0.7-2.1) mmol/L Calcium 9.1 (8.4-10.2) mg/dL Magnesium 1.9 (1.6-2.3) mg/dL Total Bilirubin 0.7 (0.2-1.3) mg/dL AST 38 (17-59) IU/L ALT 34 (<50) IU/L Alkaline Phosphatase 115 (38-126) U/L Total Protein 7.5 (6.3-8.2) g/dL Albumin 4.0 (3.5-5.0) g/dL Globulin 3.5 (1.7-4.1) g/dL Albumin/Globulin Ratio 1.1 (1.0-2.8) SARS-CoV-2 (PCR) (Negative) 09/12/21 Range/Units 09:04 WBC (4.5-11.0) X10^3/uL RBC (4.5-5.9) X10^6/uL Hgb (13.5-17.5) g/dL Hct (41-53) % MCV (80-100) fL MCH (26-34) PG MCHC (30-36) % RDW (11.6-14.8) % Plt Count (150-400) X10^3/uL Neut % (Auto) (50-75) % Lymph % (Auto) (25-40) % [place] % (Auto) (3-14) % Eos % (Auto) (2-4) % Baso % (Auto) (0-2) % Neut # (Auto) (3705-5459) /uL Lymph # (Auto) (5843-9965) /uL [place] # (Auto) (0-900) /uL Eos # (Auto) (0-450) /uL Baso # (Auto) (0-100) /uL Sodium (137-145) mmol/L Potassium (3.4-5.1) mmol/L Chloride (98-107) mmol/L Carbon Dioxide (22-32) mmol/L BUN (9-20) mg/dL Creatinine (0.66-1.25) mg/dL Estimated GFR (>60) mL/min BUN/Creatinine Ratio (6-22) Glucose (80-110) mg/dL Lactate (0.7-2.1) mmol/L Calcium (8.4-10.2) mg/dL Magnesium (1.6-2.3) mg/dL Total Bilirubin (0.2-1.3) mg/dL AST (17-59) IU/L ALT (<50) IU/L Alkaline Phosphatase (38-126) U/L Total Protein (6.3-8.2) g/dL Albumin (3.5-5.0) g/dL Globulin (1.7-4.1) g/dL Albumin/Globulin Ratio (1.0-2.8) SARS-CoV-2 (PCR) Negative (Negative) Imaging Data CT scan - abdomen/pelvis: Radiologist's Impression: Elroy Larkin??61??M??1960 ? Allergy/Adv: lisinopril, citalopram, hydrocodone (More??) Close Abdomen/Pelvis CT (Signed) Silvia,Candido - 09/12/21 Abdomen X-Ray (Signed) Silvia,Candido - 09/12/21 Abdomen/Pelvis CT (Signed) Dileep Weaver - 09/07/21 Abdomen X-Ray (Signed) Rae Oneal - 09/07/21 Telemetry Strips 08/27/21 Chest/Abdomen X-ray (Signed) MarciaBrilele wilsonsuzievini - 08/27/21 Abdomen Ultrasound (Signed) MarciaEvelyn wilson - 08/27/21 Abdomen/Pelvis CT (Signed) Card,Jesse - 08/04/21 Abdomen/Pelvis CT (Signed) Dileep Weaver - 07/02/21 Abdomen MRI (Signed) Rajat Palmer - 06/23/[address] (Signed) Anna Herzog - 03/01/21 Abdomen MRI (Signed) Aidan Mccann - 02/03/21 Cervical Spine X-Ray (Signed) Aidan Mccann - 02/03/21 Abdomen Ultrasound (Signed) Candido Vega - 02/03/21 Vascular Ultrasound (Signed) Silvia,Candido - 01/27/21 Abdomen/Pelvis CT (Signed) CardJesse munoz - 07/25/[address] (Signed) CardAlfredoJesse - 07/25/20 Abdomen MRI (Signed) Jesse Card - 07/01/20 Telemetry Strips 07/01/20 Abdomen Ultrasound (Signed) Aidan Mccann - 06/30/20 Abdomen/Pelvis CT (Signed) Evelyn Kennedy - 06/30/20 Abdomen Ultrasound (Signed) Doug Beyer - 04/05/20 Chest/Abdomen/Pelvis CT (Signed) Doug Beyer - 04/05/20 Radiology Report (Cancelled) Elmo Boss - 03/19/20 Myocardial Perfusion Scan Nuc Med (Signed) Elmo Boss - 03/19/20 Telemetry Strips 03/17/20 Chest X-Ray (Signed) Anna Herzog - 03/16/20 Echocardiogram Ultrasound (Signed) Daniel Mariee - 03/15/[address] (Signed) Silvia,Candido - 03/15/20 Chest X-Ray (Signed) Candido Vega - 03/15/20 Launch?Image [address] [address] [address] Scan Report Signed Patient: Elroy Larkin MR#: [id number] : 1960 Acct:[id number] Age/Sex: 61 / M Date of Service: 09/12/21 Loc: ED Accession Number: [id number] ?? Procedure: CT abdomen pelvis w con Ordering Provider: Devang Mccollum D.O. PROCEDURE:? CT ABDOMEN PELVIS W CON ? INDICATIONS:? severe abdominal pain, multiple recent surgical complication ? TECHNIQUE:? After the administration of IV contrast, axial sections were acquired from the lung bases to the pubic symphysis.? Coronal and sagittal reformats were performed.? For rad iation dose reduction, the following was used:? automated exposure control, adjustment of mA and/or kV according to patient size. ? COMPARISON:? [facility], CT, CT ABDOMEN PELVIS W CON, 08/04/2021, 13:21.? [facility], CT, CT ABDOMEN PELVIS W CON, 09/07/2021, 2:43. ? FINDINGS:? Image quality:? Excellent.? ? Lung bases:? Unremarkable.? ? Incidental note is made of bilateral gynecomastia.? Heart:? No significant findings. ? ? ABDOMEN: Liver:? Unremarkable.? ? Gallbladder:? Removed.? ? Within the gallbladder fossa, there is a mild amount of inflammatory change seen with enhancement and fluid, which is decreased in prominence compared to 09/07/2021. Biliary ducts:? Unremarkable.? ? Pancreas:? Unremarkable.? ? Spleen:? The spleen is enlarged, measuring 15 cm AP. Incidental note is made of accessory splenules along the hilum of the primary spleen.? Note is made of calcification along the surface of the spleen, as on series 2, image 22. Adrenal Glands:? Unremarkable.? ? Kidneys and Ureters:? Unremarkable.? ? ? Stomach and Bowel:? Prominence of upper abdominal small bowel loops are again seen, which measure 3.5 cm.? The distal small bowel loops are relatively decompressed.? No transition point can be seen. Mild thickening of the gastric wall can be seen, particularly at the antrum. Colonic diverticulosis is seen, without findings of active diverticulitis. No appendix (either normal or abnormal) is identified on this study.? Peritoneum:? Upper abdominal upper abdominal phlegm a charli change can be seen, including involving the retroperitoneum, with mild fluid seen along both pericolic gutters.? The amount of inflammatory fluid is similar to the 09/07/2021 examination.? No free air.? ? Ventral Wall: ? No hernia.? Abdominal Nodes:? No retroperitoneal or mesenteric adenopathy by size criteria.? Vessels:? Aorta and inferior vena cava are normal in size.? ? PELVIS: Pelvic Organs:? Unremarkable.? ? Bladder:? Unremarkable.? ? Pelvic Nodes: No enlarged lymph nodes.? Miscellaneous:? Mild bilateral fat containing inguinal hernias are seen. ? Bones:? Unremarkable.? IMPRESSION:? Decreased inflammatory change seen within the gallbladder fossa. ? Upper abdominal wall inflammatory changes are seen, which are similar to the prior examination. ? Prominence of fluid-filled proximal small bowel loops can be seen, without a pattern most consistent with postoperative ileus. ? Thickening of the gastric wall, particularly at the antrum.? Please consider gastritis. ? Splenomegaly is noted, with calcification noted along the surface of the spleen. ? ? ? Incidental note is made of: Gynecomastia Cholecystectomy Accessory splenules Diverticulosis, without active diverticulitis Mild bilateral fat containing inguinal hernias can be seen.? ? ? Note: No significant discrepancy from the preliminary report. ? Dictated by: Candido Vega M.D. on 09/12/2021 at 8:01 ? ? Approved by: Candido Vega M.D. on 09/12/2021 at 8:09?? Discharge Plan Departure Patient Disposition: Home Clinical Impression: Abdominal pain Instructions: DI for Abdominal Pain-Adult Activity Restrictions/Additional Instructions: Follow-up with your surgical team on September 17 regarding how best advance your diet and to treat your pain. Continue home medications as prescribed. I would recommend continuing with clear liquid or clear solid diet as it seems that adding new foods is exacerbating her symptoms. You may take oxycodone 1 tab 2 tablets every 6 hours as needed for pain. Prescription to [facility] in [place]. This medication can make you sleepy do not drive, perform hazardous activities or make any major decisions while taking it. This medication will make you constipated please take a stool softener once to twice daily until stools are soft and regular. Please return for fevers, new or worsening abdominal pain, chest pain or shortness of breath, persistent vomiting, black or bloody stools, difficulty with bowel movements or other new or concerning changes. Prescriptions: New oxycodone 5 mg tablet 5 mg PO Q6H PRN (Reason: pain) Qty: 14 0RF No Action spironolactone 100 mg tablet 100 mg PO DAILY 0RF Label Comments: TAKE 1 TABLET BY MOUTH EVERY DAY furosemide 40 mg tablet 40 mg PO DAILY 0RF Label Comments: TAKE 1 TABLET BY MOUTH EVERY MORNING tamsulosin [Flomax] 0.4 mg Capsule 0.4 mg PO DAILY 0RF polyethylene glycol 3350 8.5 gram powder in packet 8.5 g PO DAILY Qty: 72 0RF sennosides [Natural Senna Laxative] 8.6 mg tablet 8.6 mg PO BID Qty: 60 0RF tramadol 50 mg tablet 50 mg PO Q4H PRN (Reason: pain) Qty: 20 0RF famotidine 20 mg Tablet 20 mg PO BID 0RF Referrals: Vitor Maravilla MD [Primary Care Provider] -
--- NOTE | 2021-09-12 03:33 | DI.RAD.S_ITS ---
PROCEDURE: XR ABDOMEN MIN 2V INDICATIONS: severe abdominal pain TECHNIQUE: 2 views of the abdomen were acquired. COMPARISON: [facility], CT, CT ABDOMEN PELVIS W CON, 09/07/2021, 2:43. [facility], CT, CT ABDOMEN PELVIS W CON, 09/12/2021, 3:59. [facility], CR, XR ABDOMEN 1V, 09/07/2021, 1:17. FINDINGS: Surgical changes and devices: Cholecystectomy clips are seen. Apparent gastric biopsy clips are also seen. Bowel: No pneumoperitoneum. The bowel gas pattern is normal. Soft tissues: No masses; visualized solid organ contours appear normal in size. No suspicious abdominal calcifications. Bones: No suspicious bony abnormalities. Degenerative changes are seen, which are worst involving the lower lumbar spine. IMPRESSION: A nonobstructive bowel gas pattern is seen. Postoperative and degenerative changes are seen. Note: No significant discrepancy from the preliminary report. Dictated by: Candido Vega M.D. on 09/12/2021 at 7:26 Approved by: Candido Vega M.D. on 09/12/2021 at 7:28
[2021-09-12 03:45] LABS: Add Manual Diff / Slide Review NO; Basophils Absolute Auto 100 /uL (0-100); Basophils Percent Auto 0.5 % (0-2); Eosinophils Absolute Auto 500 /uL (0-450); Eosinophils Percent Auto 4.7 % (2-4); Hematocrit 47.1 % (41-53); Hemoglobin 16.2 g/dL (13.5-17.5); Lymphocytes Absolute Auto 1200 /uL (1100-4500); Lymphocytes Percent Auto 11.1 % (25-40); Mean Corpuscular HGB Conc 34.4 % (30-36); Mean Corpuscular Hemoglobin 31.7 PG (26-34); Mean Corpuscular Volume 92.1 fL (80-100); Monocytes Absolute Auto 800 /uL (0-900); Monocytes Percent Auto 7.2 % (3-14); Neutrophils Absolute Auto 8400 /uL (1500-7000); Neutrophils Percent Auto 76.5 % (50-75); Platelet Count 154 X10^3/uL (150-400); Red Blood Cell Count 5.11 X10^6/uL (4.5-5.9); Red Cell Distribution Width 13.5 % (11.6-14.8)
[2021-09-12 03:50] LABS: Alanine Aminotransferase 34 IU/L (<50); Albumin Globulin Ratio 1.1 (1.0-2.8); Alkaline Phosphatase 115 U/L (38-126); Aspartate Aminotransferase 38 IU/L (17-59); BUN Creatinine Ratio 7.4 (6-22); Bilirubin Total 0.7 mg/dL (0.2-1.3); Blood Urea Nitrogen 10 mg/dL (9-20); Calcium 9.1 mg/dL (8.4-10.2); Carbon Dioxide 26 mmol/L (22-32); Chloride 99 mmol/L (98-107); Estimated Glomerular Filt Rate 53.7 mL/min (>60); Globulin 3.5 g/dL (1.7-4.1); Glucose 111 mg/dL (80-110); HEMOLYSIS < 15 (0-50); Lactate (Lactic Acid) 1.3 mmol/L (0.7-2.1); Magnesium 1.9 mg/dL (1.6-2.3); Potassium 4.3 mmol/L (3.4-5.1); Sodium 135 mmol/L (137-145); Total Protein 7.5 g/dL (6.3-8.2)
--- NOTE | 2021-09-12 03:51 | DI.CT.S_ITS ---
PROCEDURE: CT ABDOMEN PELVIS W CON INDICATIONS: severe abdominal pain, multiple recent surgical complication TECHNIQUE: After the administration of IV contrast, axial sections were acquired from the lung bases to the pubic symphysis. Coronal and sagittal reformats were performed. For radiation dose reduction, the following was used: automated exposure control, adjustment of mA and/or kV according to patient size. COMPARISON: [facility], CT, CT ABDOMEN PELVIS W CON, 08/04/2021, 13:21. [facility], CT, CT ABDOMEN PELVIS W CON, 09/07/2021, 2:43. FINDINGS: Image quality: Excellent. Lung bases: Unremarkable. Incidental note is made of bilateral gynecomastia. Heart: No significant findings. ABDOMEN: Liver: Unremarkable. Gallbladder: Removed. Within the gallbladder fossa, there is a mild amount of inflammatory change seen with enhancement and fluid, which is decreased in prominence compared to 09/07/2021. Biliary ducts: Unremarkable. Pancreas: Unremarkable. Spleen: The spleen is enlarged, measuring 15 cm AP. Incidental note is made of accessory splenules along the hilum of the primary spleen. Note is made of calcification along the surface of the spleen, as on series 2, image 22. Adrenal Glands: Unremarkable. Kidneys and Ureters: Unremarkable. Stomach and Bowel: Prominence of upper abdominal small bowel loops are again seen, which measure 3.5 cm. The distal small bowel loops are relatively decompressed. No transition point can be seen. Mild thickening of the gastric wall can be seen, particularly at the antrum. Colonic diverticulosis is seen, without findings of active diverticulitis. No appendix (either normal or abnormal) is identified on this study. Peritoneum: Upper abdominal upper abdominal phlegm a charli change can be seen, including involving the retroperitoneum, with mild fluid seen along both pericolic gutters. The amount of inflammatory fluid is similar to the 09/07/2021 examination. No free air. Ventral Wall: No hernia. Abdominal Nodes: No retroperitoneal or mesenteric adenopathy by size criteria. Vessels: Aorta and inferior vena cava are normal in size. PELVIS: Pelvic Organs: Unremarkable. Bladder: Unremarkable. Pelvic Nodes: No enlarged lymph nodes. Miscellaneous: Mild bilateral fat containing inguinal hernias are seen. Bones: Unremarkable. IMPRESSION: Decreased inflammatory change seen within the gallbladder fossa. Upper abdominal wall inflammatory changes are seen, which are similar to the prior examination. Prominence of fluid-filled proximal small bowel loops can be seen, without a pattern most consistent with postoperative ileus. Thickening of the gastric wall, particularly at the antrum. Please consider gastritis. Splenomegaly is noted, with calcification noted along the surface of the spleen. Incidental note is made of: Gynecomastia Cholecystectomy Accessory splenules Diverticulosis, without active diverticulitis Mild bilateral fat containing inguinal hernias can be seen. Note: No significant discrepancy from the preliminary report. Dictated by: Candido Vega M.D. on 09/12/2021 at 8:01 Approved by: Candido Vega M.D. on 09/12/2021 at 8:09
[2021-09-12] MEDS: SODIUM CHLORIDE 0.9% 1,000 ML 1000 ML IV (04:26)
[2021-09-12] MEDS: PANTOPRAZOLE 40 MG VIAL IV (04:26)
[2021-09-12] MEDS: HYDROMORPHONE 1 MG INJ IV ×2 (04:26→08:31)
[2021-09-12] MEDS: HALOPERIDOL 5 MG/ML VIAL 2 MG IV (05:57)
[2021-09-12 10:07] LABS: COVID19 - ADMIT (NP swab/PCR) Negative (Negative)
== END 2021-09-12 10:05 | disposition home or self-care (01) ==
PROVIDERS: Emergency Medicine; Emergency Provider Emergency Medicine; PCP Internal Medicine
DX: R10.30 Lower abdominal pain, unspecified (principal); Z20.822 Contact with and (suspected) exposure to COVID-19
CPT/HCPCS: 36415; 74019; 74177; 80053; 83605; 83735; 85025; 87635; 96361; 96374; 96375; 96376; 99284; C9803; C9113; J1170; J1630; Q9967

== ENCOUNTER → 2022-01-27 14:29 | Outpatient (CLI) | payer MEDICARE, MEDICAID, SELFPAY ==
[2018-08-01 09:00] VITALS: PULSE 43; RESP 16; O2SAT 96
[2021-09-07 13:52] VITALS: BMI 34.2
[2022-01-27 15:45] LABS: Add Manual Diff / Slide Review NO; Basophils Absolute Auto 100 /uL (0-100); Basophils Percent Auto 0.6 % (0-2); Eosinophils Absolute Auto 300 /uL (0-450); Eosinophils Percent Auto 2.3 % (2-4); Hematocrit 50.1 % (41-53); Hemoglobin 17.3 g/dL (13.5-17.5); Lymphocytes Absolute Auto 2100 /uL (1100-4500); Lymphocytes Percent Auto 17.8 % (25-40); Mean Corpuscular HGB Conc 34.5 % (30-36); Monocytes Absolute Auto 900 /uL (0-900); Monocytes Percent Auto 7.8 % (3-14); Neutrophils Absolute Auto 8500 /uL (1500-7000); Neutrophils Percent Auto 71.5 % (50-75); Platelet Count 105 X10^3/uL (150-400); Red Blood Cell Count 5.39 X10^6/uL (4.5-5.9); Red Cell Distribution Width 13.9 % (11.6-14.8); White Blood Cell Count 11.8 X10^3/uL (4.5-11.0)
[2022-01-27 15:51] LABS: Prothrombin Time 11.4 SECONDS (10.1-12.7)
[2022-01-27 15:59] LABS: Alanine Aminotransferase 34 IU/L (<50); Albumin 4.7 g/dL (3.5-5.0); Albumin Globulin Ratio 1.2 (1.0-2.8); Alkaline Phosphatase 119 U/L (38-126); Aspartate Aminotransferase 33 IU/L (17-59); BUN Creatinine Ratio 17.6 (6-22); Bilirubin Total 0.9 mg/dL (0.2-1.3); Blood Urea Nitrogen 26 mg/dL (9-20); Calcium 9.3 mg/dL (8.4-10.2); Carbon Dioxide 23 mmol/L (22-32); Chloride 106 mmol/L (98-107); Estimated Glomerular Filt Rate 53 mL/min (>60); Globulin 3.9 g/dL (1.7-4.1); Glucose 104 mg/dL (80-110); HEMOLYSIS < 15 (0-50); Potassium 4.4 mmol/L (3.4-5.1); Sodium 138 mmol/L (137-145); Total Protein 8.6 g/dL (6.3-8.2)
[2022-01-28 09:09] LABS: Alpha Fetoprotein 2.9 ng/mL (0.0-8.4)
== END ==
PROVIDERS: PCP Internal Medicine; Referring Provider Student in an Organized Health Care Education/Training Program; Visit Provider Student in an Organized Health Care Education/Training Program
DX: R10.9 Unspecified abdominal pain (principal); K70.9 Alcoholic liver disease, unspecified; R93.5 Abnormal findings on diagnostic imaging of other abdominal regions, including retroperitoneum; R18.8 Other ascites; F10.10 Alcohol abuse, uncomplicated; Z87.19 Personal history of other diseases of the digestive system
CPT/HCPCS: 36415; 80053; 82105; 85025; 85610

== ENCOUNTER 2022-04-03 13:58 | Emergency (ER) | payer MEDICARE, MEDICAID, SELFPAY ==
[2018-08-01 09:00] VITALS: PULSE 43; RESP 16; O2SAT 96
[2021-09-07 13:52] VITALS: BMI 34.2
[2022-04-03] VITALS (11 sets, daily range): BP systolic 104–128; BP diastolic 68–83; PULSE 67–89; RESP 20–24; TEMP 36.7; O2SAT 93–96; BMI 32.2
--- NOTE | 2022-04-03 15:10 | ED.GENADULT ---
HPI - General Adult General Chief complaint: Abdominal Pain Stated complaint: abd pain--hernia Time Seen by Provider: 04/03/22 15:10 Source: patient Mode of arrival: Family Vehicle History of Present Illness HPI narrative: 62-year-old gentleman with a history of chronic pancreatitis, laparoscopic cholecystectomy August 2021, with complications including gastric outlet obstruction and history of alcoholic cirrhosis who has been alcohol free for at least a year if not longer presents with acute onset 10:00 p.m. last night periumbilical pain and a complaint that his ?belly button is not as deep as it used to be?. Describes a donut like area of fullness around the umbilicus. States that last night he started to get shaky because it hurts so much. He had a small meal and felt that that helped. He describes loose stools but no blood in the stools. He is passing gas. No chest pain palpitations fevers cough or chills. He describes a periumbilical pain as achy and sharp constant worse with palpation and with any type of movement particularly getting up and walking. Related Data Home Medications Medication Instructions Recorded Confirmed famotidine 20 mg tablet 20 mg PO BID 01/10/20 09/16/21 furosemide 40 mg tablet 40 mg PO DAILY 08/27/21 09/16/21 spironolactone 100 mg tablet 100 mg PO DAILY 08/27/21 09/16/21 tamsulosin 0.4 mg capsule (Flomax) 0.4 mg PO DAILY 09/07/21 09/16/21 Previous Rx's Medication Instructions Recorded polyethylene glycol 3350 8.5 gram 8.5 g PO DAILY #72 ea 09/08/21 oral powder packet sennosides 8.6 mg tablet (Natural 8.6 mg PO BID #60 tabs 09/08/21 Senna Laxative) tramadol 50 mg tablet 50 mg PO Q4H PRN pain #20 tabs 09/08/21 oxycodone 5 mg tablet 5 mg PO Q6H PRN pain #14 tabs 09/12/21 Allergies Allergy/AdvReac Type Severity Reaction Status Date / Time lisinopril Allergy Severe Swelling Verified 04/03/22 14:16 of Lip/Tongue/Throat citalopram [CITALOPRAM] Allergy Unknown SEIZURES Verified 04/03/22 14:16 hydrocodone [HYDROCODONE] AdvReac Mild N/V Verified 04/03/22 14:16 Review of Systems Review of Systems Narrative: Complains of erectile dysfunction after a fairly recent episode with severe scrotal edema. After the edema resolved he is no longer to have erections that are straight, notes that they are flexed 90? at the base of his penis and describes significant decrease in size and tumescence of erections. Remainder of complete review of systems is otherwise unremarkable except for that included in the HPI. Patient History Medical History Alcoholism in remission Cervical stenosis of spine Chronic thoracic spine pain Dyspepsia History of rib fracture History of stroke Hx of angioedema Hypertension Injury of hip, right Intermittent lightheadedness Surgical History History of eye surgery History of Blanche fundoplication History of splenectomy Hx laparoscopic cholecystectomy S/P cholecystectomy Status post cervical spinal fusion Family History Father Congestive heart failure Lymph edema Mother Perforated sigmoid colon Brother Stroke Sister Hypertension Social History household members: significant other and other Smoking Status: Former smoker alcohol intake: former Smoking Status: Former smoker tobacco type: cigarettes alcohol intake frequency: 0-2 drinks per day Alcohol type: hard liquor Substance Use Type: does not use Exam Initial Vital Signs Initial Vital Signs: Vital Signs Temperature 98.0 F 04/03/22 14:11 Pulse Rate 89 04/03/22 14:11 Respiratory Rate 20 04/03/22 14:11 Blood Pressure 128/83 04/03/22 14:11 Pulse Oximetry 96 04/03/22 14:11 Oxygen Delivery Method 04/03/22 14:11 General: Healthy appearing, in no acute distress. Able to give a complete and coherent history. Well-nourished well-developed HEENT: Moist mucous membranes, normal sclera with reactive pupils, Neck: No JVD, supple Respiratory: Lungs are clear to auscultation, no wheezing no rales no rhonchi. Full and symmetrical air movement Cardiac: Regular rate and rhythm no murmurs no bruits Abdomen: Soft, periumbilical tenderness without erythema or fluctuance. No significant abdominal distension, Good bowel tones, no flank pain Skin: Warm and dry, no rashes Neurologic: Grossly neurologically intact with no obvious asymmetries or abnormalities Extremities: No trauma, well perfused Psych: Cooperative, appropriate insight and affect Course Orders Ordered: Discontinued Medications Hydromorphone HCl (Hydromorphone 0.5 Mg Inj) 0.5 mg IV Q15MIN PRN PRN Reason: Pain, Last Admin: 04/03/22 17:48 Dose: 0.5 mg Documented By: Admin: 04/03/22 15:45 Dose: 0.5 mg Documented By: WALLACE Sodium Chloride (Normal Saline 0.9%) 1,000 mls @ 150 mls/hr IV CONT MIGUEL Last Infusion: 04/03/22 21:32 Dose: 0 mls/hr Documented By: Admin: 04/03/22 15:44 Dose: 150 mls/hr Documented By: WALLACE Ondansetron HCl (Ondansetron 4 Mg/2 Ml Inj) 4 mg IV NOW ONE Stop: 04/03/22 15:27 Last Admin: 04/03/22 15:44 Dose: 4 mg Documented By: WALLACE Oxycodone/Acetaminophen (Oxycodone/Apap 5/325 Prepack) 1 bottle MISC SEEINSTR ONE Stop: 04/03/22 19:27 Last Admin: 04/03/22 19:41 Dose: 1 bottle Documented By: JOSE Vital Signs Vital signs: Vital Signs - 8 hr 04/03/22 14:11 04/03/22 15:48 04/03/22 15:49 Temperature 98.0 F Pulse Rate 89 72 Respiratory Rate 20 23 Blood Pressure 128/83 110/68 Pulse Oximetry 96 95 Oxygen Delivery Method Room Air 04/03/22 16:00 04/03/22 16:00 04/03/22 16:30 Temperature Pulse Rate 73 Respiratory Rate 24 Blood Pressure 110/68 117/82 Pulse Oximetry 94 Oxygen Delivery Method 04/03/22 16:30 04/03/22 17:00 04/03/22 17:00 Temperature Pulse Rate 72 70 Respiratory Rate 24 20 Blood Pressure 110/74 Pulse Oximetry 95 94 Oxygen Delivery Method Medical Decision Making Lab Data Result diagrams: 04/03/22 15:33 04/03/22 15:33 Labs: Lab Results 04/03/22 04/03/22 Range/Units 15:33 15:33 WBC 10.6 (4.5-11.0) X10^3/uL RBC 5.22 (4.5-5.9) X10^6/uL Hgb 17.1 (13.5-17.5) g/dL Hct 47.8 (41-53) % MCV 91.7 (80-100) fL MCH 32.8 (26-34) PG MCHC 35.8 (30-36) % RDW 13.0 (11.6-14.8) % Plt Count 81 L (150-400) X10^3/uL Neut % (Auto) 77.9 H (50-75) % Lymph % (Auto) 12.8 L (25-40) % [place] % (Auto) 7.0 (3-14) % Eos % (Auto) 1.6 L (2-4) % Baso % (Auto) 0.7 (0-2) % Neut # (Auto) 8200 H (0408-7833) /uL Lymph # (Auto) 1300 (2627-5553) /uL [place] # (Auto) 700 (0-900) /uL Eos # (Auto) 200 (0-450) /uL Baso # (Auto) 100 (0-100) /uL Sodium 134 L (137-145) mmol/L Potassium 4.7 (3.4-5.1) mmol/L Chloride 106 (98-107) mmol/L Carbon Dioxide 23 (22-32) mmol/L BUN 29 H (9-20) mg/dL Creatinine 1.44 H (0.66-1.25) mg/dL Estimated GFR 55 L (>60) mL/min BUN/Creatinine Ratio 20.1 (6-22) Glucose 98 (80-110) mg/dL Calcium 8.9 (8.4-10.2) mg/dL Total Bilirubin 0.8 (0.2-1.3) mg/dL AST 32 (17-59) IU/L ALT 29 (<50) IU/L Alkaline Phosphatase 99 (38-126) U/L Total Protein 7.5 (6.3-8.2) g/dL Albumin 4.1 (3.5-5.0) g/dL Globulin 3.4 (1.7-4.1) g/dL Albumin/Globulin Ratio 1.2 (1.0-2.8) Lipase 104 (23-300) U/L Imaging Data CT scan - abdomen/pelvis: Radiologist's Impression: FINDINGS: ? Lower thorax: The lung bases are clear.? Heart size normal.? No hiatal hernia. ? Liver:? Normal in size and attenuation. No contour deformity present. ? Biliary system:? Cholecystectomy.? No intra or extrahepatic bile duct dilation. ? Pancreas:? Unremarkable without mass or inflammation evident. ? Spleen:? Perisplenic surgical clips and capsular calcification is similar to the prior.? Splenomegaly, 13.3 cm ? Adrenals:? Normal morphology and density. ? Reproductive system:? Unremarkable as visualized. ? Urinary system:? Normal renal size and attenuation. No renal calculi, hydronephrosis, or solid mass present.? Urinary bladder unremarkable. ? Gastrointestinal system:? The bowel is unremarkable without evidence of bowel obstruction or inflammation. The stomach appears unremarkable.? Multiple diverticula arise from the sigmoid colon without evidence of diverticulitis. ? ? Appendix:? No findings to suggest acute appendicitis. ? Peritoneal spaces:? No mesenteric or retroperitoneal adenopathy.? No free air.? No free fluid.? ? Vasculature:? The IVC, aorta and iliac vasculature are unremarkable. ? Abdominal wall:? Periumbilical hernia contains fat and a small amount of bowel did no evidence incarceration or obstruction.? ? Musculoskeletal:? Normal bone mineralization.? No acute fractures.? ? IMPRESSION: ? 1. Small umbilical hernia contains fat and a small knuckle of bowel without evidence of incarceration or bowel obstruction. ? 2. Splenomegaly, cholecystectomy, sigmoid diverticulosis without diverticulitis ? ? Approved by: Bashir Huston M.D. on 04/03/2022 at 15:23? [facility] Narrative Medical decision making narrative: 62-year-old gentleman presents with acute periumbilical pain with a small umbilical hernia.? Has some fat as well as a small portion of bowel that is not incarcerated.? He was given pain medication from a CT scan was reviewed by general surgery, Dr. Dowell.? She suggests he is safe for home discharge with pain control and follow-up as an outpatient.? On re-evaluation he notes that his pain has essentially resolved and the tenderness around his umbilicus has significantly improved.? We reviewed hernias verses incarcerated hernias and reasons to return to the emergency department.? He will be given a take-home pack of Percocet to use for pain should return along with instructions to go ahead and try to push the hernia back in, it will not cause additional damage and may prevent another emergency room visit.? He was told by his primary care physician that if the hernia begins to interfere with his activities of daily living, then it would be appropriate to consider talking with the surgeon about surgical revision.? This does seem appropriate and prudent.? At this time he is safe for home discharge Discharge Plan Departure Patient Disposition: Home Clinical Impression: Hernia, umbilical Instructions: Groin Hernia -- Adult, DI Umbilical Hernia-Child Activity Restrictions/Additional Instructions: Thank you for coming in today You have a small umbilical hernia after the laparoscopic surgery had. Today, you had a small amount of fat and the very small amount of bowel that was caught in the hernia. With pain medication and relaxation it does seem that the small amount of bowel and the fat have fallen back into your abdomen as it should. You do not have any evidence of incarceration. This is when the hernia is stuck and the bowel is not getting enough blood flow. I have given you some Percocet to use if you have recurrent pain. If this occurs, please try Percocet, lying flat and encouraging the bit of fat an any bowel involved to drop back into your belly and out of the hernia. If you are unable to push the hernia back, find that you are having severe pain, bloody stool or unable to pass any gas you do need to return to the emergency room for further evaluation If you continue to have daily pain and irritation with this abdominal hernia, would make sense to follow-up with [facility] to talk about outpatient surgical repair. If you would like to do this you can call [facility] at [phone] to schedule an appointment for evaluation of abdominal hernia. I wish you well Prescriptions: No Action spironolactone 100 mg tablet 100 mg PO DAILY Label Comments: TAKE 1 TABLET BY MOUTH EVERY DAY furosemide 40 mg tablet 40 mg PO DAILY Label Comments: TAKE 1 TABLET BY MOUTH EVERY MORNING tamsulosin [Flomax] 0.4 mg Capsule 0.4 mg PO DAILY polyethylene glycol 3350 8.5 gram powder in packet 8.5 g PO DAILY Qty: 72 0RF sennosides [Natural Senna Laxative] 8.6 mg tablet 8.6 mg PO BID Qty: 60 0RF tramadol 50 mg tablet 50 mg PO Q4H PRN (Reason: pain) Qty: 20 0RF famotidine 20 mg Tablet 20 mg PO BID oxycodone 5 mg tablet 5 mg PO Q6H PRN (Reason: pain) Qty: 14 0RF Referrals: Vitor Maravilla MD [Primary Care Provider] - Visit Report Forms: Patient Portal/API
--- NOTE | 2022-04-03 15:26 | DI.CT.S_ITS ---
PROCEDURE: CT ABDOMEN PELVIS WO CON INDICATIONS: periumbilical pain, ? incarcerated hernia TECHNIQUE: After the administration of oral contrast, 5 mm thick sections acquired from the diaphragms to the symphysis. 5 mm coronal and sagittal reformats were performed. For radiation dose reduction, the following was used: automated exposure control, adjustment of mA and/or kV according to patient size. COMPARISON: [facility], CT, CT ABDOMEN PELVIS WO [facility], 07/25/2020, 15:25. FINDINGS: Lower thorax: The lung bases are clear. Heart size normal. No hiatal hernia. Liver: Normal in size and attenuation. No contour deformity present. Biliary system: Cholecystectomy. No intra or extrahepatic bile duct dilation. Pancreas: Unremarkable without mass or inflammation evident. Spleen: Perisplenic surgical clips and capsular calcification is similar to the prior. Splenomegaly, 13.3 cm Adrenals: Normal morphology and density. Reproductive system: Unremarkable as visualized. Urinary system: Normal renal size and attenuation. No renal calculi, hydronephrosis, or solid mass present. Urinary bladder unremarkable. Gastrointestinal system: The bowel is unremarkable without evidence of bowel obstruction or inflammation. The stomach appears unremarkable. Multiple diverticula arise from the sigmoid colon without evidence of diverticulitis. Appendix: No findings to suggest acute appendicitis. Peritoneal spaces: No mesenteric or retroperitoneal adenopathy. No free air. No free fluid. Vasculature: The IVC, aorta and iliac vasculature are unremarkable. Abdominal wall: Periumbilical hernia contains fat and a small amount of bowel did no evidence incarceration or obstruction. Musculoskeletal: Normal bone mineralization. No acute fractures. IMPRESSION: 1. Small umbilical hernia contains fat and a small knuckle of bowel without evidence of incarceration or bowel obstruction. 2. Splenomegaly, cholecystectomy, sigmoid diverticulosis without diverticulitis Approved by: Bashir Huston M.D. on 04/03/2022 at 15:23
[2022-04-03] MEDS: ONDANSETRON 4 MG/2 ML INJ IV (15:44)
[2022-04-03] MEDS: SODIUM CHLORIDE 0.9% 1,000 ML 150 ML IV (15:44)
[2022-04-03] MEDS: HYDROMORPHONE 0.5 MG INJ IV ×2 (15:45→17:48)
[2022-04-03 15:55] LABS: Add Manual Diff / Slide Review NO; Basophils Absolute Auto 100 /uL (0-100); Basophils Percent Auto 0.7 % (0-2); Eosinophils Absolute Auto 200 /uL (0-450); Eosinophils Percent Auto 1.6 % (2-4); Hematocrit 47.8 % (41-53); Hemoglobin 17.1 g/dL (13.5-17.5); Lymphocytes Absolute Auto 1300 /uL (1100-4500); Lymphocytes Percent Auto 12.8 % (25-40); Mean Corpuscular HGB Conc 35.8 % (30-36); Mean Corpuscular Hemoglobin 32.8 PG (26-34); Mean Corpuscular Volume 91.7 fL (80-100); Monocytes Absolute Auto 700 /uL (0-900); Neutrophils Absolute Auto 8200 /uL (1500-7000); Neutrophils Percent Auto 77.9 % (50-75); Platelet Count 81 X10^3/uL (150-400); Red Blood Cell Count 5.22 X10^6/uL (4.5-5.9); White Blood Cell Count 10.6 X10^3/uL (4.5-11.0)
[2022-04-03 15:57] LABS: Alanine Aminotransferase 29 IU/L (<50); Albumin 4.1 g/dL (3.5-5.0); Albumin Globulin Ratio 1.2 (1.0-2.8); Alkaline Phosphatase 99 U/L (38-126); Aspartate Aminotransferase 32 IU/L (17-59); BUN Creatinine Ratio 20.1 (6-22); Bilirubin Total 0.8 mg/dL (0.2-1.3); Blood Urea Nitrogen 29 mg/dL (9-20); Calcium 8.9 mg/dL (8.4-10.2); Carbon Dioxide 23 mmol/L (22-32); Chloride 106 mmol/L (98-107); Estimated Glomerular Filt Rate 55 mL/min (>60); Globulin 3.4 g/dL (1.7-4.1); Glucose 98 mg/dL (80-110); HEMOLYSIS 35 (0-50); Lipase 104 U/L (23-300); Potassium 4.7 mmol/L (3.4-5.1); Sodium 134 mmol/L (137-145); Total Protein 7.5 g/dL (6.3-8.2)
[2022-04-03] MEDS: OXYCODONE/APAP 5/325 PREPACK 1 BOTTLE MISC (19:41)
== END 2022-04-03 19:50 | disposition home or self-care (01) ==
PROVIDERS: Emergency Provider Emergency Medicine; PCP Internal Medicine
DX: K42.9 Umbilical hernia without obstruction or gangrene (principal)
CPT/HCPCS: 36415; 74176; 80053; 83690; 85025; 93005; 96361; 96374; 96375; 96376; 99284; J1170; J2405

== ENCOUNTER → 2022-04-27 14:09 | Outpatient (CLI) | payer MEDICARE, MEDICAID, SELFPAY ==
[2018-08-01 09:00] VITALS: PULSE 43; RESP 16; O2SAT 96
[2021-09-07 13:52] VITALS: BMI 34.2
--- NOTE | 2022-04-27 14:11 | DI.MRI.S_ITS ---
PROCEDURE: MR PELIS WO/W CON INDICATIONS: penile deformity and pelvic pain TECHNIQUE: Large field of view coronal T1 and STIR, sagittal STIR and T1 fat-sat, axial T2 fat sat and T1, post-contrast coronal sagittal axial T1 images acquired of the pelvis. COMPARISON: [facility], CT, CT ABDOMEN PELVIS WO CON, 04/03/2022, 15:29. FINDINGS: Image quality: Adequate. Genitourinary system: The tunica albuginea of the penis appears intact without focal disruption or plaque identified. No definite abnormal enhancement visualized within the penis. Visualized testes are unremarkable in MR appearance. Bladder wall thickness is normal. Distal ureters are non distended. Bowel and peritoneum: No pathologic free pelvic fluid. Inferior colon and small bowel loops are normal in caliber. Moderate-severe sigmoid colonic diverticulosis without MR evidence of acute diverticulitis. Nodes and vessels: No pelvic or inguinal adenopathy by size criteria. Iliac vessels are normal in caliber. Soft tissues: No definite inguinal hernias. Bones: Marrow demonstrates unremarkable overall signal. IMPRESSION: 1. No definite MRI abnormality of the penis identified. No definite evidence of Peyronie's disease identified. 2. Moderate-severe sigmoid colonic diverticulosis without evidence of acute diverticulitis. Dictated by: Jose De Jesus Hauser M.D. on 04/27/2022 at 17:27 Approved by: Jose De Jesus Hauser M.D. on 04/27/2022 at 18:23
== END ==
PROVIDERS: PCP Internal Medicine; Referring Provider Urology; Visit Provider Urology
DX: Q55.69 Other congenital malformation of penis (principal); R10.2 Pelvic and perineal pain; K57.30 Diverticulosis of large intestine without perforation or abscess without bleeding
CPT/HCPCS: 72197

== ENCOUNTER → 2022-06-24 12:12 | Outpatient (CLI) | payer MEDICARE, MEDICAID, SELFPAY ==
[2018-08-01 09:00] VITALS: PULSE 43; RESP 16; O2SAT 96
[2021-09-07 13:52] VITALS: BMI 34.2
--- NOTE | 2022-06-24 12:14 | DI.US.S_ITS ---
PROCEDURE: US SCROTUM INDICATIONS: Right lower quadrant pain;Groin pain TECHNIQUE: Real-time scanning was performed of the scrotum and testicles, with image documentation. Color and pulse Doppler interrogation was performed of both testicles. COMPARISON: None. FINDINGS: Right: Testicle is normal in size at 5.0 x 1.7 x 2.5 cm, and homogenous in echotexture. Epididymis is normal in overall size and morphology. Incidental note of 3 mm epididymal head cyst. No hydrocele or varicoceles. Overlying scrotal skin is normal in thickness. Left: Testicle is normal in size at 4.9 x 1.8 x 2.9 cm, and homogeneous in echotexture. Epididymis is normal in overall size and morphology. No hydrocele or varicoceles. Overlying scrotal skin is normal in thickness. Doppler: Color and pulse Doppler demonstrate normal and symmetric arterial flow in both testicles. IMPRESSION: Unremarkable sonographic evaluation of the bilateral testes and scrotum. Dictated by: Mahesh Gonzalez M.D. on 06/24/2022 at 14:33 Approved by: Mahesh Gonzalez M.D. on 06/24/2022 at 14:34
--- NOTE | 2022-06-24 12:15 | DI.US.S_ITS ---
PROCEDURE: US ABDOMEN LIMITED INDICATIONS: Right lower quadrant pain;Groin pain TECHNIQUE: Real-time scanning was performed of the abdominal and retroperitoneal organs, with image documentation. COMPARISON: [facility], , US ABDOMEN LIMITED, 08/27/2021, 4:45. FINDINGS: Multiple grayscale and color Doppler images of the right lower quadrant and inguinal region were acquired. No inguinal hernias identified. No suspicious mass or fluid collections. Normal appearing inguinal lymph nodes identified. IMPRESSION: No sonographic abnormalities identified in the right inguinal region/right lower quadrant. Specifically, no inguinal hernia seen. Dictated by: Mahesh Gonzalez M.D. on 06/24/2022 at 13:58 Approved by: Mahesh Gonzalez M.D. on 06/24/2022 at 13:59
== END ==
PROVIDERS: PCP Internal Medicine; Referring Provider Internal Medicine; Visit Provider Internal Medicine
DX: R10.31 Right lower quadrant pain (principal)
CPT/HCPCS: 76705; 76870; 93975

== ENCOUNTER → 2022-08-01 10:33 | Outpatient (CLI) | payer MEDICARE, MEDICAID, SELFPAY ==
[2018-08-01 09:00] VITALS: PULSE 43; RESP 16; O2SAT 96
[2021-09-07 13:52] VITALS: BMI 34.2
[2022-08-01 12:21] LABS: COVID19 -Nasal RAPID Negative (Negative)
== END ==
PROVIDERS: PCP Internal Medicine; Visit Provider Surgery
DX: Z01.812 Encounter for preprocedural laboratory examination (principal); Z20.822 Contact with and (suspected) exposure to COVID-19
CPT/HCPCS: 87635; C9803

== ENCOUNTER 2022-08-02 08:24 | Day surgery (SDC) | payer MEDICARE, MEDICAID, SELFPAY ==
[2018-08-01 09:00] VITALS: PULSE 43; RESP 16; O2SAT 96
[2021-09-07 13:52] VITALS: BMI 34.2
[2022-07-27 12:19] VITALS: BMI 34.0
[2022-08-01 14:12] VITALS: BMI 34.0
[2022-08-02] VITALS (14 sets, daily range): BP systolic 105–130; BP diastolic 73–82; PULSE 68–90; RESP 16–25; TEMP 36.1–36.8; O2SAT 93–96; BMI 33.3
[2022-08-02] MEDS: LACTATED RINGERS 1,000 ML 42 ML IV (09:02)
--- NOTE | 2022-08-02 10:27 | PM.PREOP ---
Pre-operative Note Interval Note History & Physical reviewed/Exam performed by Physician: Yes Changes to H&P: No
[2022-08-02] MEDS: CEFAZOLIN 2 GM/100 ML PREMIX 100 ML IV (10:51)
[2022-08-02] MEDS: CEFAZOLIN VIAL 1 GM in SODIUM CHLORIDE 0.9% 100 ML IV (10:51)
[2022-08-02] MEDS: BUPIVACAINE 0.5% (PF) 30 ML, EPINEPHrine 0.15 MG INJ (11:02)
--- NOTE | 2022-08-02 11:13 | SUR.OPER ---
Supine on padded OR bed, head on pillow, Wedge positioner placed by Anesthesia, arms secured on padded arm boards at <90 degrees abduction, legs uncrossed, safety belt at thigh, tape over blanket over lower legs. Gel pad under bilateral heels.
[2022-08-02] MEDS: ONDANSETRON 4 MG/2 ML INJ IV (12:26)
--- NOTE | 2022-08-02 12:27 | SUR.PHASEI ---
Spoke with Dr Moseley. See new order for Toradol for pain control.
[2022-08-02] MEDS: KETOROLAC 30 MG/ML VIAL IV (12:34)
[2022-08-02] MEDS: HYDROMORPHONE 2 MG INJ IV (12:41)
[2022-08-02] MEDS: OXYCODONE IR 5 MG TABLET PO ×2 (12:49→13:30)
[2022-08-02] MEDS: ACETAMINOPHEN 325 MG TABLET PO (13:31)
--- NOTE | 2022-08-02 13:39 | PM.OP.1 ---
Procedure & Clinicians Procedure: Umbilical/incisional hernia repair Same procedure as scheduled: Yes Indications: Mr. Medley presented to my office. He has chronic pain and some of that pain is in his hip and groin. However I do not think his hernia there was causative. He did have an umbilical hernia however which she states has caused him to go to the emergency room a few times due to the pain from it. He would really like that repaired. With him risks benefits and alternatives to umbilical hernia repair and he wants to proceed. Surgeon: Chelle Moseley Click Yes if Unassisted: Yes Anesthesia Type: General Operative Notes Findings: Mr. John was taken to the operating room and placed supine on the operating room table. If antibiotics were administered bilateral SCDs in place. A time-out was performed general endotracheal anesthesia was induced. Local anesthetic was infused above the umbilicus, an incision was made with a 15 blade scalpel through a previous port site incision. The umbilical hernia was palpable and reducible. But there was also a lateral small component of incisional hernia near by the umbilical. Electrocautery was used to carry the incision through the subcutaneous fascia to the level of the anterior abdominal wall further close inspection of the hernia complex did reveal a true umbilical hernia with a very small lateral incisional component. During the course of the dissection of the hernia sac and umbilical stalk these 2 areas were so close, that they were incorporated into 1 defect. The sac of the hernia was entered very slightly. But a couple of interrupted 3-0 Vicryl sutures were used to close the sac in order to stay in the preperitoneal space. The hernia was returned to the abdomen and a area was cleared out that would accommodate the large size of circular mesh. The defect in total was about 4 cm in length. The mesh was placed underneath the anterior abdominal wall fascia and secured with four 0 Prolene interrupted sutures in the 4 corners. The mesh laid down very nicely and was flat. Two interrupted 0 Prolene sutures were used to close the umbilical fascia over top of the mesh. A 3-0 Prolene suture was used to secure the umbilical stalk to the anterior abdominal wall fascia. I placed 2 interrupted sutures for this purpose. The subcutaneous tissue was also closed with interrupted 3-0 Prolene sutures. The skin was closed with a running 3-0 Monocryl. The remainder of the local anesthetic was infused around the area and some. The patient tolerated the procedure well and went in good condition to the postoperative care unit. Specimen(s): none sent Complications: none Post-operative Disposition: PACU
== END 2022-08-02 14:25 | disposition home or self-care (01) ==
PROVIDERS: PCP Internal Medicine; Referring Provider Surgery; Visit Provider Surgery
PROC: (CPT 49585; principal; 2022-08-02 10:00)
DX: K42.9 Umbilical hernia without obstruction or gangrene (principal); I10 Essential (primary) hypertension; Z86.73 Personal history of transient ischemic attack (TIA), and cerebral infarction without residual deficits
CPT/HCPCS: 49585; 00830; J0171; J0330; J0690; J1170; J1885; J2405; J2704; J3010

== ENCOUNTER 2023-01-16 14:29 | Emergency (ER) | payer MEDICARE, MEDICAID, SELFPAY ==
[2018-08-01 09:00] VITALS: PULSE 43; RESP 16; O2SAT 96
[2021-09-07 13:52] VITALS: BMI 34.2
[2023-01-16 14:30] VITALS: BP 143/98; PULSE 82; RESP 20; TEMP 36.5; O2SAT 96; BMI 32.8
--- NOTE | 2023-01-16 14:36 | DI.RAD.S_ITS ---
PROCEDURE: XR CHEST 1V INDICATIONS: chest pain TECHNIQUE: One view of the chest was acquired. COMPARISON: [facility], CR, XR CHEST 1V, 03/16/2020, 18:13. FINDINGS: Surgical changes and devices: Status post prior posterior cervical spinal fusion. Lungs and pleura: Diffuse interstitial prominence. Mild loss of vascular distinctness. Findings are more pronounced in the lower lung zones. No substantial pleural effusion. No pneumothorax. No focal consolidation. Mediastinum: Mediastinal contours appear stable. Heart size is stable. Bones and chest wall: No suspicious bony lesions. Overlying soft tissues appear unremarkable. IMPRESSION: Diffuse interstitial prominence with suggestion mild loss of vascular distinctness. Findings may represent early/mild pulmonary edema/CHF. Concurrent infectious or inflammatory process not excluded if clinically appropriate. No focal consolidation seen. Dictated by: Mahesh Gonzalez M.D. on 01/16/2023 at 15:11 Approved by: Mahesh Gonzalez M.D. on 01/16/2023 at 15:12
[2023-01-16 15:22] LABS: Add Manual Diff / Slide Review NO; Basophils Absolute Auto 0 /uL (0-100); Basophils Percent Auto 0.5 % (0-2); Eosinophils Absolute Auto 100 /uL (0-450); Eosinophils Percent Auto 0.9 % (2-4); Hematocrit 49.8 % (41-53); Hemoglobin 16.9 g/dL (13.5-17.5); INR 1.1 (0.9-1.3); Lymphocytes Absolute Auto 900 /uL (1100-4500); Lymphocytes Percent Auto 9.5 % (25-40); Mean Corpuscular Hemoglobin 31.6 PG (26-34); Mean Corpuscular Volume 92.9 fL (80-100); Monocytes Absolute Auto 600 /uL (0-900); Monocytes Percent Auto 6.1 % (3-14); Neutrophils Absolute Auto 7800 /uL (1500-7000); Platelet Count 69 X10^3/uL (150-400); Prothrombin Time 12.2 SECONDS (10.1-12.7); Red Blood Cell Count 5.36 X10^6/uL (4.5-5.9); Red Cell Distribution Width 13.7 % (11.6-14.8); White Blood Cell Count 9.4 X10^3/uL (4.5-11.0)
[2023-01-16 15:25] LABS: Alanine Aminotransferase 28 IU/L (<50); Albumin 3.9 g/dL (3.5-5.0); Albumin Globulin Ratio 1.1 (1.0-2.8); Alkaline Phosphatase 122 U/L (38-126); Aspartate Aminotransferase 29 IU/L (17-59); BUN Creatinine Ratio 10.6 (6-22); Bilirubin Total 0.8 mg/dL (0.2-1.3); Blood Urea Nitrogen 11 mg/dL (9-20); Calcium 8.2 mg/dL (8.4-10.2); Carbon Dioxide 24 mmol/L (22-32); Chloride 104 mmol/L (98-107); Creatine Kinase 77 U/L (55-170); Estimated Glomerular Filt Rate > 60 mL/min (>60); Globulin 3.5 g/dL (1.7-4.1); Glucose 94 mg/dL (80-110); HEMOLYSIS 20 (0-50); Lipase 109 U/L (23-300); Magnesium 2.1 mg/dL (1.6-2.3); PTT Partial Thromboplastin Tim 29 SECONDS (26-36); Potassium 4.1 mmol/L (3.4-5.1); Sodium 135 mmol/L (137-145); Total Protein 7.4 g/dL (6.3-8.2)
[2023-01-16 15:31] VITALS: BP 158/93; PULSE 73; RESP 23
[2023-01-16 15:36] LABS: Troponin I 0.085 ng/mL (0.01-0.034)
[2023-01-16 16:00] VITALS: BP 167/105; PULSE 75; RESP 21
--- NOTE | 2023-01-16 16:17 | ED_ITS ---
HPI - Chest Pain <Poppy David, DO - Last Filed: 01/19/23 08:47> General Chief Complaint: Chest Pain Stated Complaint: CHEST PAIN BAD Time Seen by Provider: 01/16/23 16:14 Source: patient and family Mode of arrival: Wheelchair Limitations: no limitations History of Present Illness HPI narrative: This is a 63 year old male with history of prior Codie occipital injury, cervical fusion, cholecystectomy, hernia and Blanche fundoplication who had substernal chest pain without radiation starting 11 30 this morning. Patient states he was at a friend's house had found that they had and had contact with the court bailiff or sheriff and was assisting them. He states it is persisted since then continuously but has gotten better. He denies any other exacerbating or alleviating factors. Had some mild nausea, he took an antinausea pill and a GI cocktail helped the nausea but not the pain. He denies diaphoresis. He did feel short of breath earlier but not so much now. He denies syncope or light headedness. No swelling in his extremities. Patient states he does not typically get these symptoms. He states no daily medications other than oxycodone, no aspirin, no medications for blood pressure, cholesterol or diabetes. Patient states he has not had a stress test for at least 3 years or longer he is unsure exactly when his last was. Dr. Maravilla is his primary care. He does use tobacco daily, denies active alcohol or illicit. She is accompanied by his today. Related Data Home Medications Medication Instructions Recorded Confirmed famotidine 20 mg tablet 20 mg PO BID PRN Heartburn 07/12/22 08/16/22 furosemide 40 mg tablet 40 mg PO DAILY PRN Edema 07/12/22 08/16/22 ondansetron 4 mg disintegrating 4 mg PO Q6H PRN nausea 07/12/22 08/16/22 tablet simethicone 80 mg chewable tablet 80 mg PO TID-QID PRN Acid Reflux 07/12/22 08/16/22 (Gas Relief (simethicone)) spironolactone 100 mg tablet 100 mg PO DAILY PRN Edema 07/12/22 08/16/22 Previous Rx's Medication Instructions Recorded acetaminophen 500 mg tablet 1,000 mg PO Q6H #20 tabs 08/02/22 (Tylenol Extra Strength) docusate sodium 100 mg capsule 100 mg PO BID #20 caps 08/02/22 (Colace) oxycodone 5 mg tablet 10 mg PO Q6H PRN pain #30 tabs 08/16/22 Allergies Allergy/AdvReac Type Severity Reaction Status Date / Time lisinopril Allergy Severe Swelling Verified 08/16/22 13:15 of Lip/Tongue/Throat citalopram [CITALOPRAM] Allergy Unknown SEIZURES Verified 08/16/22 13:15 bupropion [From Aplenzin] AdvReac Nausea Verified 08/16/22 13:15 fluoxetine AdvReac Nausea Verified 08/16/22 13:15 Review of Systems <Poppy David DO - Last Filed: 01/19/23 08:47> Review of Systems ROS Unobtainable: All systems reviewed & are unremarkable except as noted in HPI and below Patient History <Poppy David DO - Last Filed: 01/19/23 08:47> Medical History Alcoholism in remission Cervical stenosis of spine Chronic thoracic spine pain Dyspepsia History of rib fracture History of stroke Hx of angioedema Hypertension Injury of hip, right Intermittent lightheadedness Male pelvic pain Other congenital malformation of penis Pain in male perineum Surgical History History of eye surgery History of Blanche fundoplication (08/2008) History of splenectomy History of surgery (05/2006) Hx laparoscopic cholecystectomy S/P cholecystectomy (07/2021) Status post cervical spinal fusion (07/2018) Family History Father Congestive heart failure Lymph edema Cancer Mother Perforated sigmoid colon Hypertension Brother Stroke Sister Hypertension Social History marital status: number of children: 4 household members: significant other and other Smoking Status: Current every day smoker alcohol intake: former caffeine: Yes Smoking Status: Current every day smoker tobacco type: cigarettes alcohol intake frequency: 0-2 drinks per day Alcohol type: hard liquor Substance Use Type: does not use Exam <Poppy David DO - Last Filed: 01/19/23 08:47> Narrative Exam Narrative: GENERAL: Alert and oriented x three, male in mild distress. HEENT: Head normocephalic, atraumatic, EOMI, pupils reactive, face symmetric, moist mucous membranes, patient has midline posterior neck incision consistent with prior surgery. NECK: Supple, full range of motion CARDIOVASCULAR: Regular rate and rhythm without murmurs, rubs or gallops. RESPIRATORY: Breath sounds equal bilaterally, no wheezes rales or rhonchi. ABDOMEN: Soft, nontender. Normoactive bowel sounds all 4 quadrants. No guarding or rebound, rigidity, no mass, nondistended. No pulsatile mass. : No CVA tenderness EXTREMITIES: Normal range of motion, no clubbing or edema. Neurovascularly intact NEUROLOGICAL: Cranial nerves II through XII grossly intact. Moving all extremities SKIN: Warm, dry, no petechiae, no rashes or lesions. Initial Vital Signs Initial Vital Signs: Vital Signs Temperature 97.7 F 01/16/23 14:30 Pulse Rate 82 01/16/23 14:30 Respiratory Rate 20 01/16/23 14:30 Blood Pressure 143/98 H 01/16/23 14:30 Pulse Oximetry 96 01/16/23 14:30 Oxygen Delivery Method Room Air 01/16/23 14:30 <Devang Mccollum, DO - Last Filed: 01/18/23 17:25> Initial Vital Signs Initial Vital Signs: Vital Signs Temperature 97.7 F 01/16/23 14:30 Pulse Rate 82 01/16/23 14:30 Respiratory Rate 20 01/16/23 14:30 Blood Pressure 143/98 H 01/16/23 14:30 Pulse Oximetry 96 01/16/23 14:30 Oxygen Delivery Method Room Air 01/16/23 14:30 <Mayra Mccormack DO - Last Filed: 01/17/23 14:17> Initial Vital Signs Initial Vital Signs: Vital Signs Temperature 97.7 F 01/16/23 14:30 Pulse Rate 82 01/16/23 14:30 Respiratory Rate 20 01/16/23 14:30 Blood Pressure 143/98 H 01/16/23 14:30 Pulse Oximetry 96 01/16/23 14:30 Oxygen Delivery Method Room Air 01/16/23 14:30 Course <Poppy David, DO - Last Filed: 01/19/23 08:47> Orders Ordered: Discontinued Medications Acetaminophen (Acetaminophen 325 Mg Tablet) 975 mg PO Q6H PRN PRN Reason: Pain, Mild (1-3) Aspirin (Aspirin 81 Mg Chew Tab) 324 mg PO NOW ONE Stop: 01/16/23 14:37 Last Admin: 01/16/23 15:00 Dose: Not Given Documented By: LEMUEL Aspirin (Aspirin 81 Mg Chew Tab) 324 mg PO NOW ONE Stop: 01/16/23 16:32 Last Admin: 01/16/23 17:11 Dose: 324 mg Documented By: RB Aspirin (Aspirin 81 Mg Chew Tab) 324 mg PO DAILY [facility] Last Admin: 01/17/23 09:18 Dose: 324 mg Documented By: AT Atorvastatin Calcium (Atorvastatin 20 Mg Tablet) 40 mg PO NOW ONE Stop: 01/16/23 18:51 Last Admin: 01/16/23 19:32 Dose: 40 mg Documented By: RADHA Atorvastatin Calcium (Atorvastatin 20 Mg Tablet) 80 mg PO DAILY [facility] Last Admin: 01/17/23 09:12 Dose: Not Given Documented By: AT Atorvastatin Calcium (Atorvastatin 20 Mg Tablet) 80 mg PO BEDTIME [facility] Heparin Sodium (Porcine) (Heparin 5,000 Unit/Ml Vial) 5,000 unit IV NOW ONE Stop: 01/16/23 17:40 Last Admin: 01/16/23 18:28 Dose: 5,000 unit Documented By: RB Heparin Sodium/Dextrose (Heparin Drip) 25,000 unit in 500 mls @ 29.393 mls/hr IV CONT MIGUEL; Protocol Last Titration: 01/17/23 13:22 Dose: 8.57 units/kg/hr, 21 mls/hr Documented By: Titration: 01/17/23 07:39 Dose: 8.57 units/kg/hr, 21 mls/hr Documented By: Admin: 01/16/23 18:28 Dose: 8.17 units/kg/hr, 20 mls/hr Documented By: RB Metoprolol Tartrate (Metoprolol Ir 25 Mg Tablet) 25 mg PO NOW ONE Stop: 01/16/23 18:51 Last Admin: 01/16/23 19:31 Dose: 25 mg Documented By: RADHA Metoprolol Tartrate (Metoprolol Ir 25 Mg Tablet) 25 mg PO DAILY [facility] Last Admin: 01/17/23 09:15 Dose: 25 mg Documented By: AT Morphine Sulfate (Morphine 4 Mg/Ml Inj) 4 mg IV NOW ONE Stop: 01/16/23 17:34 Last Admin: 01/16/23 17:39 Dose: 4 mg Documented By: RB Morphine Sulfate (Morphine 4 Mg/Ml Inj) 4 mg IV NOW ONE Stop: 01/17/23 05:46 Last Admin: 01/17/23 05:57 Dose: 4 mg Documented By: RADHA Morphine Sulfate (Morphine 4 Mg/Ml Inj) 4 mg IV NOW ONE Stop: 01/17/23 12:56 Last Admin: 01/17/23 13:03 Dose: 4 mg Documented By: AT Nitroglycerin (Nitroglycerin 0.4 Mg Sl Tab) 0.4 mg SL [id number] PRN PRN Reason: Chest Pain Ondansetron HCl (Ondansetron 4 Mg Odt) 4 mg SL Q6H PRN PRN Reason: Nausea And Vomiting Last Admin: 01/17/23 07:56 Dose: 4 mg Documented By: AT Ondansetron HCl (Ondansetron 4 Mg/2 Ml Inj) 4 mg IV NOW ONE Stop: 01/17/23 12:56 Last Admin: 01/17/23 13:02 Dose: 4 mg Documented By: AT Oxycodone HCl (Oxycodone Ir 5 Mg Tablet) 5 mg PO Q6H PRN PRN Reason: Pain, Moderate (4-6) Last Admin: 01/17/23 07:55 Dose: 5 mg Documented By: AT Oxycodone/Acetaminophen (Oxycodone/Acetaminophen 5/325 Tablet) 1 tab PO NOW ONE Stop: 01/16/23 20:18 Last Admin: 01/16/23 20:28 Dose: 1 tab Documented By: RADHA Oxycodone/Acetaminophen (Oxycodone/Acetaminophen 5/325 Tablet) 1 tab PO NOW ONE Stop: 01/17/23 02:34 Last Admin: 01/17/23 02:37 Dose: 1 tab Documented By: AP Vital Signs Vital signs: Vital Signs - 8 hr 01/17/23 06:11 01/17/23 06:11 01/17/23 06:30 Temperature Pulse Rate 59 L 60 Respiratory Rate 23 24 Blood Pressure 116/65 Pulse Oximetry 95 95 Oxygen Delivery Method 01/17/23 07:00 01/17/23 07:00 01/17/23 07:30 Temperature Pulse Rate 60 61 Respiratory Rate 28 H 27 H Blood Pressure 119/77 Pulse Oximetry 96 92 Oxygen Delivery Method Room Air 01/17/23 08:00 01/17/23 08:00 01/17/23 08:30 Temperature Pulse Rate 62 62 Respiratory Rate 17 22 Blood Pressure 125/81 Pulse Oximetry 95 95 Oxygen Delivery Method Room Air 01/17/23 09:00 01/17/23 09:00 01/17/23 09:30 Temperature Pulse Rate 79 73 Respiratory Rate 26 H 25 H Blood Pressure 135/81 Pulse Oximetry 96 94 Oxygen Delivery Method 01/17/23 10:00 01/17/23 10:01 01/17/23 10:01 Temperature Pulse Rate 64 63 Respiratory Rate 17 17 Blood Pressure 109/65 Pulse Oximetry 94 94 Oxygen Delivery Method 01/17/23 10:30 01/17/23 11:00 01/17/23 11:00 Temperature Pulse Rate 60 57 L Respiratory Rate 15 16 Blood Pressure 85/52 L Pulse Oximetry 94 94 Oxygen Delivery Method 01/17/23 11:07 01/17/23 11:07 01/17/23 11:11 Temperature Pulse Rate 58 L 59 L Respiratory Rate 16 19 Blood Pressure 85/53 L Pulse Oximetry 95 95 Oxygen Delivery Method 01/17/23 11:11 01/17/23 11:15 01/17/23 11:15 Temperature Pulse Rate 61 Respiratory Rate 21 Blood Pressure 97/65 102/65 Pulse Oximetry 95 Oxygen Delivery Method 01/17/23 11:20 01/17/23 11:20 01/17/23 11:30 Temperature Pulse Rate 57 L Respiratory Rate 23 Blood Pressure 101/71 93/61 Pulse Oximetry 96 Oxygen Delivery Method 01/17/23 11:30 01/17/23 11:45 01/17/23 11:45 Temperature Pulse Rate 55 L 58 L Respiratory Rate 17 15 Blood Pressure 96/61 Pulse Oximetry 94 95 Oxygen Delivery Method 01/17/23 12:00 01/17/23 12:01 01/17/23 12:01 Temperature Pulse Rate 61 59 L Respiratory Rate 19 19 Blood Pressure 123/76 Pulse Oximetry 97 95 Oxygen Delivery Method 01/17/23 12:15 01/17/23 12:15 01/17/23 12:22 Temperature 97.6 F Pulse Rate 63 Respiratory Rate 21 Blood Pressure 130/86 Pulse Oximetry 97 Oxygen Delivery Method 01/17/23 12:32 01/17/23 12:49 01/17/23 12:49 Temperature Pulse Rate 56 L 58 L Respiratory Rate 14 Blood Pressure 119/80 Pulse Oximetry 97 96 Oxygen Delivery Method 01/17/23 13:00 01/17/23 13:00 01/17/23 13:15 Temperature Pulse Rate 57 L Respiratory Rate 18 Blood Pressure 118/79 120/81 Pulse Oximetry 97 Oxygen Delivery Method 01/17/23 13:15 Temperature Pulse Rate 57 L Respiratory Rate 22 Blood Pressure Pulse Oximetry 96 Oxygen Delivery Method <Devang Mccollum DO - Last Filed: 01/18/23 17:25> Orders Ordered: Discontinued Medications Acetaminophen (Acetaminophen 325 Mg Tablet) 975 mg PO Q6H PRN PRN Reason: Pain, Mild (1-3) Aspirin (Aspirin 81 Mg Chew Tab) 324 mg PO NOW ONE Stop: 01/16/23 14:37 Last Admin: 01/16/23 15:00 Dose: Not Given Documented By: LEMUEL Aspirin (Aspirin 81 Mg Chew Tab) 324 mg PO NOW ONE Stop: 01/16/23 16:32 Last Admin: 01/16/23 17:11 Dose: 324 mg Documented By: RB Aspirin (Aspirin 81 Mg Chew Tab) 324 mg PO DAILY [facility] Last Admin: 01/17/23 09:18 Dose: 324 mg Documented By: AT Atorvastatin Calcium (Atorvastatin 20 Mg Tablet) 40 mg PO NOW ONE Stop: 01/16/23 18:51 Last Admin: 01/16/23 19:32 Dose: 40 mg Documented By: RADHA Atorvastatin Calcium (Atorvastatin 20 Mg Tablet) 80 mg PO DAILY [facility] Last Admin: 01/17/23 09:12 Dose: Not Given Documented By: AT Atorvastatin Calcium (Atorvastatin 20 Mg Tablet) 80 mg PO BEDTIME [facility] Heparin Sodium (Porcine) (Heparin 5,000 Unit/Ml Vial) 5,000 unit IV NOW ONE Stop: 01/16/23 17:40 Last Admin: 01/16/23 18:28 Dose: 5,000 unit Documented By: RB Heparin Sodium/Dextrose (Heparin Drip) 25,000 unit in 500 mls @ 29.393 mls/hr IV CONT MIGUEL; Protocol Last Titration: 01/17/23 13:22 Dose: 8.57 units/kg/hr, 21 mls/hr Documented By: Titration: 01/17/23 07:39 Dose: 8.57 units/kg/hr, 21 mls/hr Documented By: Admin: 01/16/23 18:28 Dose: 8.17 units/kg/hr, 20 mls/hr Documented By: RB Metoprolol Tartrate (Metoprolol Ir 25 Mg Tablet) 25 mg PO NOW ONE Stop: 01/16/23 18:51 Last Admin: 01/16/23 19:31 Dose: 25 mg Documented By: RADHA Metoprolol Tartrate (Metoprolol Ir 25 Mg Tablet) 25 mg PO DAILY [facility] Last Admin: 01/17/23 09:15 Dose: 25 mg Documented By: AT Morphine Sulfate (Morphine 4 Mg/Ml Inj) 4 mg IV NOW ONE Stop: 01/16/23 17:34 Last Admin: 01/16/23 17:39 Dose: 4 mg Documented By: RB Morphine Sulfate (Morphine 4 Mg/Ml Inj) 4 mg IV NOW ONE Stop: 01/17/23 05:46 Last Admin: 01/17/23 05:57 Dose: 4 mg Documented By: RADHA Morphine Sulfate (Morphine 4 Mg/Ml Inj) 4 mg IV NOW ONE Stop: 01/17/23 12:56 Last Admin: 01/17/23 13:03 Dose: 4 mg Documented By: AT Nitroglycerin (Nitroglycerin 0.4 Mg Sl Tab) 0.4 mg SL [id number] PRN PRN Reason: Chest Pain Ondansetron HCl (Ondansetron 4 Mg Odt) 4 mg SL Q6H PRN PRN Reason: Nausea And Vomiting Last Admin: 01/17/23 07:56 Dose: 4 mg Documented By: AT Ondansetron HCl (Ondansetron 4 Mg/2 Ml Inj) 4 mg IV NOW ONE Stop: 01/17/23 12:56 Last Admin: 01/17/23 13:02 Dose: 4 mg Documented By: AT Oxycodone HCl (Oxycodone Ir 5 Mg Tablet) 5 mg PO Q6H PRN PRN Reason: Pain, Moderate (4-6) Last Admin: 01/17/23 07:55 Dose: 5 mg Documented By: AT Oxycodone/Acetaminophen (Oxycodone/Acetaminophen 5/325 Tablet) 1 tab PO NOW ONE Stop: 01/16/23 20:18 Last Admin: 01/16/23 20:28 Dose: 1 tab Documented By: RADHA Oxycodone/Acetaminophen (Oxycodone/Acetaminophen 5/325 Tablet) 1 tab PO NOW ONE Stop: 01/17/23 02:34 Last Admin: 01/17/23 02:37 Dose: 1 tab Documented By: AP Vital Signs Vital signs: Vital Signs - 8 hr 01/17/23 06:11 01/17/23 06:11 01/17/23 06:30 Temperature Pulse Rate 59 L 60 Respiratory Rate 23 24 Blood Pressure 116/65 Pulse Oximetry 95 95 Oxygen Delivery Method 01/17/23 07:00 01/17/23 07:00 01/17/23 07:30 Temperature Pulse Rate 60 61 Respiratory Rate 28 H 27 H Blood Pressure 119/77 Pulse Oximetry 96 92 Oxygen Delivery Method Room Air 01/17/23 08:00 01/17/23 08:00 01/17/23 08:30 Temperature Pulse Rate 62 62 Respiratory Rate 17 22 Blood Pressure 125/81 Pulse Oximetry 95 95 Oxygen Delivery Method Room Air 01/17/23 09:00 01/17/23 09:00 01/17/23 09:30 Temperature Pulse Rate 79 73 Respiratory Rate 26 H 25 H Blood Pressure 135/81 Pulse Oximetry 96 94 Oxygen Delivery Method 01/17/23 10:00 01/17/23 10:01 01/17/23 10:01 Temperature Pulse Rate 64 63 Respiratory Rate 17 17 Blood Pressure 109/65 Pulse Oximetry 94 94 Oxygen Delivery Method 01/17/23 10:30 01/17/23 11:00 01/17/23 11:00 Temperature Pulse Rate 60 57 L Respiratory Rate 15 16 Blood Pressure 85/52 L Pulse Oximetry 94 94 Oxygen Delivery Method 01/17/23 11:07 01/17/23 11:07 01/17/23 11:11 Temperature Pulse Rate 58 L 59 L Respiratory Rate 16 19 Blood Pressure 85/53 L Pulse Oximetry 95 95 Oxygen Delivery Method 01/17/23 11:11 01/17/23 11:15 01/17/23 11:15 Temperature Pulse Rate 61 Respiratory Rate 21 Blood Pressure 97/65 102/65 Pulse Oximetry 95 Oxygen Delivery Method 01/17/23 11:20 01/17/23 11:20 01/17/23 11:30 Temperature Pulse Rate 57 L Respiratory Rate 23 Blood Pressure 101/71 93/61 Pulse Oximetry 96 Oxygen Delivery Method 01/17/23 11:30 01/17/23 11:45 01/17/23 11:45 Temperature Pulse Rate 55 L 58 L Respiratory Rate 17 15 Blood Pressure 96/61 Pulse Oximetry 94 95 Oxygen Delivery Method 01/17/23 12:00 01/17/23 12:01 01/17/23 12:01 Temperature Pulse Rate 61 59 L Respiratory Rate 19 19 Blood Pressure 123/76 Pulse Oximetry 97 95 Oxygen Delivery Method 01/17/23 12:15 01/17/23 12:15 01/17/23 12:22 Temperature 97.6 F Pulse Rate 63 Respiratory Rate 21 Blood Pressure 130/86 Pulse Oximetry 97 Oxygen Delivery Method 01/17/23 12:32 01/17/23 12:49 01/17/23 12:49 Temperature Pulse Rate 56 L 58 L Respiratory Rate 14 Blood Pressure 119/80 Pulse Oximetry 97 96 Oxygen Delivery Method 01/17/23 13:00 01/17/23 13:00 01/17/23 13:15 Temperature Pulse Rate 57 L Respiratory Rate 18 Blood Pressure 118/79 120/81 Pulse Oximetry 97 Oxygen Delivery Method 01/17/23 13:15 Temperature Pulse Rate 57 L Respiratory Rate 22 Blood Pressure Pulse Oximetry 96 Oxygen Delivery Method <Mayra Mccormack, - Last Filed: 01/17/23 14:17> Orders Ordered: Discontinued Medications Acetaminophen (Acetaminophen 325 Mg Tablet) 975 mg PO Q6H PRN PRN Reason: Pain, Mild (1-3) Aspirin (Aspirin 81 Mg Chew Tab) 324 mg PO NOW ONE Stop: 01/16/23 14:37 Last Admin: 01/16/23 15:00 Dose: Not Given Documented By: LEMUEL Aspirin (Aspirin 81 Mg Chew Tab) 324 mg PO NOW ONE Stop: 01/16/23 16:32 Last Admin: 01/16/23 17:11 Dose: 324 mg Documented By: RB Aspirin (Aspirin 81 Mg Chew Tab) 324 mg PO DAILY [facility] Last Admin: 01/17/23 09:18 Dose: 324 mg Documented By: AT Atorvastatin Calcium (Atorvastatin 20 Mg Tablet) 40 mg PO NOW ONE Stop: 01/16/23 18:51 Last Admin: 01/16/23 19:32 Dose: 40 mg Documented By: RADHA Atorvastatin Calcium (Atorvastatin 20 Mg Tablet) 80 mg PO DAILY [facility] Last Admin: 01/17/23 09:12 Dose: Not Given Documented By: AT Atorvastatin Calcium (Atorvastatin 20 Mg Tablet) 80 mg PO BEDTIME [facility] Heparin Sodium (Porcine) (Heparin 5,000 Unit/Ml Vial) 5,000 unit IV NOW ONE Stop: 01/16/23 17:40 Last Admin: 01/16/23 18:28 Dose: 5,000 unit Documented By: RB Heparin Sodium/Dextrose (Heparin Drip) 25,000 unit in 500 mls @ 29.393 mls/hr IV CONT MIGUEL; Protocol Last Titration: 01/17/23 13:22 Dose: 8.57 units/kg/hr, 21 mls/hr Documented By: Titration: 01/17/23 07:39 Dose: 8.57 units/kg/hr, 21 mls/hr Documented By: Admin: 01/16/23 18:28 Dose: 8.17 units/kg/hr, 20 mls/hr Documented By: RB Metoprolol Tartrate (Metoprolol Ir 25 Mg Tablet) 25 mg PO NOW ONE Stop: 01/16/23 18:51 Last Admin: 01/16/23 19:31 Dose: 25 mg Documented By: RADHA Metoprolol Tartrate (Metoprolol Ir 25 Mg Tablet) 25 mg PO DAILY [facility] Last Admin: 01/17/23 09:15 Dose: 25 mg Documented By: AT Morphine Sulfate (Morphine 4 Mg/Ml Inj) 4 mg IV NOW ONE Stop: 01/16/23 17:34 Last Admin: 01/16/23 17:39 Dose: 4 mg Documented By: RB Morphine Sulfate (Morphine 4 Mg/Ml Inj) 4 mg IV NOW ONE Stop: 01/17/23 05:46 Last Admin: 01/17/23 05:57 Dose: 4 mg Documented By: RADHA Morphine Sulfate (Morphine 4 Mg/Ml Inj) 4 mg IV NOW ONE Stop: 01/17/23 12:56 Last Admin: 01/17/23 13:03 Dose: 4 mg Documented By: AT Nitroglycerin (Nitroglycerin 0.4 Mg Sl Tab) 0.4 mg SL [id number] PRN PRN Reason: Chest Pain Ondansetron HCl (Ondansetron 4 Mg Odt) 4 mg SL Q6H PRN PRN Reason: Nausea And Vomiting Last Admin: 01/17/23 07:56 Dose: 4 mg Documented By: AT Ondansetron HCl (Ondansetron 4 Mg/2 Ml Inj) 4 mg IV NOW ONE Stop: 01/17/23 12:56 Last Admin: 01/17/23 13:02 Dose: 4 mg Documented By: AT Oxycodone HCl (Oxycodone Ir 5 Mg Tablet) 5 mg PO Q6H PRN PRN Reason: Pain, Moderate (4-6) Last Admin: 01/17/23 07:55 Dose: 5 mg Documented By: AT Oxycodone/Acetaminophen (Oxycodone/Acetaminophen 5/325 Tablet) 1 tab PO NOW ONE Stop: 01/16/23 20:18 Last Admin: 01/16/23 20:28 Dose: 1 tab Documented By: RADHA Oxycodone/Acetaminophen (Oxycodone/Acetaminophen 5/325 Tablet) 1 tab PO NOW ONE Stop: 01/17/23 02:34 Last Admin: 01/17/23 02:37 Dose: 1 tab Documented By: AP Vital Signs Vital signs: Vital Signs - 8 hr 01/17/23 06:11 01/17/23 06:11 01/17/23 06:30 Temperature Pulse Rate 59 L 60 Respiratory Rate 23 24 Blood Pressure 116/65 Pulse Oximetry 95 95 Oxygen Delivery Method 01/17/23 07:00 01/17/23 07:00 01/17/23 07:30 Temperature Pulse Rate 60 61 Respiratory Rate 28 H 27 H Blood Pressure 119/77 Pulse Oximetry 96 92 Oxygen Delivery Method Room Air 01/17/23 08:00 01/17/23 08:00 01/17/23 08:30 Temperature Pulse Rate 62 62 Respiratory Rate 17 22 Blood Pressure 125/81 Pulse Oximetry 95 95 Oxygen Delivery Method Room Air 01/17/23 09:00 01/17/23 09:00 01/17/23 09:30 Temperature Pulse Rate 79 73 Respiratory Rate 26 H 25 H Blood Pressure 135/81 Pulse Oximetry 96 94 Oxygen Delivery Method 01/17/23 10:00 01/17/23 10:01 01/17/23 10:01 Temperature Pulse Rate 64 63 Respiratory Rate 17 17 Blood Pressure 109/65 Pulse Oximetry 94 94 Oxygen Delivery Method 01/17/23 10:30 01/17/23 11:00 01/17/23 11:00 Temperature Pulse Rate 60 57 L Respiratory Rate 15 16 Blood Pressure 85/52 L Pulse Oximetry 94 94 Oxygen Delivery Method 01/17/23 11:07 01/17/23 11:07 01/17/23 11:11 Temperature Pulse Rate 58 L 59 L Respiratory Rate 16 19 Blood Pressure 85/53 L Pulse Oximetry 95 95 Oxygen Delivery Method 01/17/23 11:11 01/17/23 11:15 01/17/23 11:15 Temperature Pulse Rate 61 Respiratory Rate 21 Blood Pressure 97/65 102/65 Pulse Oximetry 95 Oxygen Delivery Method 01/17/23 11:20 01/17/23 11:20 01/17/23 11:30 Temperature Pulse Rate 57 L Respiratory Rate 23 Blood Pressure 101/71 93/61 Pulse Oximetry 96 Oxygen Delivery Method 01/17/23 11:30 01/17/23 11:45 01/17/23 11:45 Temperature Pulse Rate 55 L 58 L Respiratory Rate 17 15 Blood Pressure 96/61 Pulse Oximetry 94 95 Oxygen Delivery Method 01/17/23 12:00 01/17/23 12:01 01/17/23 12:01 Temperature Pulse Rate 61 59 L Respiratory Rate 19 19 Blood Pressure 123/76 Pulse Oximetry 97 95 Oxygen Delivery Method 01/17/23 12:15 01/17/23 12:15 01/17/23 12:22 Temperature 97.6 F Pulse Rate 63 Respiratory Rate 21 Blood Pressure 130/86 Pulse Oximetry 97 Oxygen Delivery Method 01/17/23 12:32 01/17/23 12:49 01/17/23 12:49 Temperature Pulse Rate 56 L 58 L Respiratory Rate 14 Blood Pressure 119/80 Pulse Oximetry 97 96 Oxygen Delivery Method 01/17/23 13:00 01/17/23 13:00 01/17/23 13:15 Temperature Pulse Rate 57 L Respiratory Rate 18 Blood Pressure 118/79 120/81 Pulse Oximetry 97 Oxygen Delivery Method 01/17/23 13:15 Temperature Pulse Rate 57 L Respiratory Rate 22 Blood Pressure Pulse Oximetry 96 Oxygen Delivery Method MDM - Chest Pain <Poppy David, - Last Filed: 01/19/23 08:47> Lab Data 01/17/23 07:02 01/17/23 06:28 Labs: Lab Results 01/16/23 01/16/23 01/16/23 Range/Units 14:51 14:51 14:51 WBC 9.4 (4.5-11.0) X10^3/uL RBC 5.36 (4.5-5.9) X10^6/uL Hgb 16.9 (13.5-17.5) g/dL Hct 49.8 (41-53) % MCV 92.9 (80-100) fL MCH 31.6 (26-34) PG MCHC 34.0 (30-36) % RDW 13.7 (11.6-14.8) % Plt Count 69 L (150-400) X10^3/uL Neut % (Auto) 83.0 H (50-75) % Lymph % (Auto) 9.5 L (25-40) % Letcher % (Auto) 6.1 (3-14) % Eos % (Auto) 0.9 L (2-4) % Baso % (Auto) 0.5 (0-2) % Neut # (Auto) 7800 H (2548-6234) /uL Lymph # (Auto) 900 L (4664-2840) /uL Letcher # (Auto) 600 (0-900) /uL Eos # (Auto) 100 (0-450) /uL Baso # (Auto) 0 (0-100) /uL PT 12.2 (10.1-12.7) SECONDS INR 1.1 (0.9-1.3) APTT 29 (26-36) SECONDS Sodium 135 L (137-145) mmol/L Potassium 4.1 (3.4-5.1) mmol/L Chloride 104 (98-107) mmol/L Carbon Dioxide 24 (22-32) mmol/L BUN 11 (9-20) mg/dL Creatinine 1.04 (0.66-1.25) mg/dL Estimated GFR > 60 (>60) mL/min BUN/Creatinine Ratio 10.6 (6-22) Glucose 94 (80-110) mg/dL Calcium 8.2 L (8.4-10.2) mg/dL Magnesium 2.1 (1.6-2.3) mg/dL Total Bilirubin 0.8 (0.2-1.3) mg/dL AST 29 (17-59) IU/L ALT 28 (<50) IU/L Alkaline Phosphatase 122 (38-126) U/L Total Creatine Kinase 77 (55-170) U/L CK-MB (CK-2) TNP CK-MB (CK-2) Rel Index TNP Troponin I 0.085 H (0.01-0.034) ng/mL NT-Pro-B Natriuret Pep (<125) pg/mL Total Protein 7.4 (6.3-8.2) g/dL Albumin 3.9 (3.5-5.0) g/dL Globulin 3.5 (1.7-4.1) g/dL Albumin/Globulin Ratio 1.1 (1.0-2.8) Lipase 109 (23-300) U/L SARS-CoV-2 (PCR) (Negative) 01/16/23 01/16/23 01/16/23 Range/Units 14:51 16:20 16:50 WBC (4.5-11.0) X10^3/uL RBC (4.5-5.9) X10^6/uL Hgb (13.5-17.5) g/dL Hct (41-53) % MCV (80-100) fL MCH (26-34) PG MCHC (30-36) % RDW (11.6-14.8) % Plt Count (150-400) X10^3/uL Neut % (Auto) (50-75) % Lymph % (Auto) (25-40) % Letcher % (Auto) (3-14) % Eos % (Auto) (2-4) % Baso % (Auto) (0-2) % Neut # (Auto) (7404-3170) /uL Lymph # (Auto) (4704-1999) /uL Letcher # (Auto) (0-900) /uL Eos # (Auto) (0-450) /uL Baso # (Auto) (0-100) /uL PT (10.1-12.7) SECONDS INR (0.9-1.3) APTT (26-36) SECONDS Sodium (137-145) mmol/L Potassium (3.4-5.1) mmol/L Chloride (98-107) mmol/L Carbon Dioxide (22-32) mmol/L BUN (9-20) mg/dL Creatinine (0.66-1.25) mg/dL Estimated GFR (>60) mL/min BUN/Creatinine Ratio (6-22) Glucose (80-110) mg/dL Calcium (8.4-10.2) mg/dL Magnesium (1.6-2.3) mg/dL Total Bilirubin (0.2-1.3) mg/dL AST (17-59) IU/L ALT (<50) IU/L Alkaline Phosphatase (38-126) U/L Total Creatine Kinase (55-170) U/L CK-MB (CK-2) CK-MB (CK-2) Rel Index Troponin I 1.050 H* (0.01-0.034) ng/mL NT-Pro-B Natriuret Pep 34 (<125) pg/mL Total Protein (6.3-8.2) g/dL Albumin (3.5-5.0) g/dL Globulin (1.7-4.1) g/dL Albumin/Globulin Ratio (1.0-2.8) Lipase (23-300) U/L SARS-CoV-2 (PCR) Negative (Negative) 01/17/23 01/17/23 01/17/23 Range/Units 00:30 06:28 06:29 WBC (4.5-11.0) X10^3/uL RBC (4.5-5.9) X10^6/uL Hgb (13.5-17.5) g/dL Hct (41-53) % MCV (80-100) fL MCH (26-34) PG MCHC (30-36) % RDW (11.6-14.8) % Plt Count (150-400) X10^3/uL Neut % (Auto) (50-75) % Lymph % (Auto) (25-40) % Letcher % (Auto) (3-14) % Eos % (Auto) (2-4) % Baso % (Auto) (0-2) % Neut # (Auto) (1915-5954) /uL Lymph # (Auto) (7518-3876) /uL Letcher # (Auto) (0-900) /uL Eos # (Auto) (0-450) /uL Baso # (Auto) (0-100) /uL PT (10.1-12.7) SECONDS INR (0.9-1.3) APTT 52 H D 44 H D (26-36) SECONDS Sodium 135 L (137-145) mmol/L Potassium 4.1 (3.4-5.1) mmol/L Chloride 105 (98-107) mmol/L Carbon Dioxide 23 (22-32) mmol/L BUN 12 (9-20) mg/dL Creatinine 0.97 (0.66-1.25) mg/dL Estimated GFR > 60 (>60) mL/min BUN/Creatinine Ratio 12.4 (6-22) Glucose 86 (80-110) mg/dL Calcium 7.9 L (8.4-10.2) mg/dL Magnesium (1.6-2.3) mg/dL Total Bilirubin 1.2 (0.2-1.3) mg/dL AST 58 (17-59) IU/L ALT 32 (<50) IU/L Alkaline Phosphatase 105 (38-126) U/L Total Creatine Kinase 232 H (55-170) U/L CK-MB (CK-2) 20.80 H CK-MB (CK-2) Rel Index 9.0 H* Troponin I 12.500 H* (0.01-0.034) ng/mL NT-Pro-B Natriuret Pep (<125) pg/mL Total Protein 6.3 (6.3-8.2) g/dL Albumin 3.3 L (3.5-5.0) g/dL Globulin 3.0 (1.7-4.1) g/dL Albumin/Globulin Ratio 1.1 (1.0-2.8) Lipase (23-300) U/L SARS-CoV-2 (PCR) (Negative) 01/17/23 01/17/23 01/17/23 Range/Units 07:02 07:02 11:20 WBC 7.4 (4.5-11.0) X10^3/uL RBC 5.03 (4.5-5.9) X10^6/uL Hgb 15.8 (13.5-17.5) g/dL Hct 46.5 (41-53) % MCV 92.4 (80-100) fL MCH 31.4 (26-34) PG MCHC 34.0 (30-36) % RDW 14.0 (11.6-14.8) % Plt Count 64 L (150-400) X10^3/uL Neut % (Auto) 67.8 (50-75) % Lymph % (Auto) 19.4 L (25-40) % Letcher % (Auto) 8.4 (3-14) % Eos % (Auto) 3.6 (2-4) % Baso % (Auto) 0.8 (0-2) % Neut # (Auto) 5100 (8716-8357) /uL Lymph # (Auto) 1400 (2224-7564) /uL Letcher # (Auto) 600 (0-900) /uL Eos # (Auto) 300 (0-450) /uL Baso # (Auto) 100 (0-100) /uL PT (10.1-12.7) SECONDS INR (0.9-1.3) APTT (26-36) SECONDS Sodium (137-145) mmol/L Potassium (3.4-5.1) mmol/L Chloride (98-107) mmol/L Carbon Dioxide (22-32) mmol/L BUN (9-20) mg/dL Creatinine (0.66-1.25) mg/dL Estimated GFR (>60) mL/min BUN/Creatinine Ratio (6-22) Glucose (80-110) mg/dL Calcium (8.4-10.2) mg/dL Magnesium (1.6-2.3) mg/dL Total Bilirubin (0.2-1.3) mg/dL AST (17-59) IU/L ALT (<50) IU/L Alkaline Phosphatase (38-126) U/L Total Creatine Kinase (55-170) U/L CK-MB (CK-2) CK-MB (CK-2) Rel Index Troponin I 8.300 H* (0.01-0.034) ng/mL NT-Pro-B Natriuret Pep 168 H (<125) pg/mL Total Protein (6.3-8.2) g/dL Albumin (3.5-5.0) g/dL Globulin (1.7-4.1) g/dL Albumin/Globulin Ratio (1.0-2.8) Lipase (23-300) U/L SARS-CoV-2 (PCR) (Negative) Point of Care Testing Glucose POC 83 Imaging Data Chest x-ray: Radiologist's Impression: Close Chest X-Ray (Signed) Mahesh Gonzalez - 01/16/23 Abdomen Ultrasound (Signed) Mahesh Gonzalez - 06/24/22 Scrotum Ultrasound (Signed) Mahesh Gonzalez - 06/24/22 Pelvis MRI (Signed) Jose De Jesus Hauser - 04/27/22 Abdomen/Pelvis CT (Signed) Bashir Huston - 04/03/22 Abdomen/Pelvis CT (Signed) Candido Vega - 09/12/21 Abdomen X-Ray (Signed) Silvia,Candido - 09/12/21 Telemetry Strips 09/07/21 Abdomen/Pelvis CT (Signed) Dileep Weaver - 09/07/21 Abdomen X-Ray (Signed) Rae Oneal - 09/07/21 EKG Rpt. 08/28/21 Telemetry Strips 08/27/21 Chest/Abdomen X-ray (Signed) Evelyn Kennedy - 08/27/21 Abdomen Ultrasound (Signed) Evelyn Kennedy - 08/27/21 Abdomen/Pelvis CT (Signed) Jesse Card - 08/04/21 Abdomen/Pelvis CT (Signed) Dileep Weaver - 07/02/21 Abdomen MRI (Signed) Rajat Palmer - 06/23/[address] (Signed) Anna Herzog - 03/01/21 Abdomen MRI (Signed) Aidan Mccann - 02/03/21 Cervical Spine X-Ray (Signed) Aidan Mccann - 02/03/21 Abdomen Ultrasound (Signed) Candido Vega - 02/03/21 Vascular Ultrasound (Signed) Silvia,Candido - 01/27/21 Abdomen/Pelvis CT (Signed) CardJesse munoz - 07/25/[address] (Signed) Jesse Card - 07/25/20 Abdomen MRI (Signed) Jesse Card - 07/01/20 Telemetry Strips 07/01/20 Abdomen Ultrasound (Signed) Aidan Mccann - 06/30/20 Abdomen/Pelvis CT (Signed) Evelyn Kennedy - 06/30/20 Abdomen Ultrasound (Signed) Doug Beyer - 04/05/20 Chest/Abdomen/Pelvis CT (Signed) Doug Beyer - 04/05/20 Radiology Report (Cancelled) Elmo Boss - 03/19/20 Myocardial Perfusion Scan Nuc Med (Signed) Elmo Boss - 03/19/20 Telemetry Strips 03/17/20 Chest X-Ray (Signed) Anna Herzog - 03/16/20 Echocardiogram Ultrasound (Signed) Daniel Mariee - 03/15/[address] (Signed) Candido Vega - 03/15/20 Chest X-Ray (Signed) Candido Vega - 03/15/20 Abdomen Ultrasound (Signed) Candido Vega - 01/11/20 Telemetry Strips 01/10/20 Chest X-Ray (Signed) Acacia Huntleyng - 01/10/[address] (Signed) MarciaEvelyn - 08/07/[address] (Signed) Evelyn Kennedy - 08/07/19 Abdomen/Pelvis CT (Signed) Anna Herzog - 06/10/19 Telemetry Strips 04/21/19 Abdomen Ultrasound (Signed) MarciaBrielleraymond - 01/15/19 Chest X-Ray (Signed) Dileep Weaver - 08/01/18 Chest X-Ray (Signed) Aidan Mccann - 07/31/18 Telemetry Strips 07/30/18 Chest X-Ray (Signed) Aidan Mccann - 07/30/18 Cervical Spine X-Ray (Signed) Emmanuel Bautista - 04/10/18 [place] [address] XRay Report Signed Patient: Marine Larkin MR#: [id number] : 1960 Acct:[id number] Age/Sex: 63 / M Date of Service: 01/16/23 Loc: ED Accession Number: [id number] ?? Procedure: XR chest 1V Ordering Provider: Poppy David D.O. PROCEDURE:? XR CHEST 1V ? INDICATIONS:? chest pain ? TECHNIQUE:? One view of the chest was acquired.? ? COMPARISON:? [facility], , XR CHEST 1V, 03/16/2020, 18:13. ? FINDINGS:? ? Surgical changes and devices:? Status post prior posterior cervical spinal fusion. ? Lungs and pleura:? Diffuse interstitial prominence.? Mild loss of vascular distinctness.? Findings are more pronounced in the lower lung zones.? No substantial pleural effusion.? No pneumothorax.? No focal consolidation. ? Mediastinum:? Mediastinal contours appear stable.? Heart size is stable.? ? Bones and chest wall:? No suspicious bony lesions.? Overlying soft tissues appear unremarkable.? ? IMPRESSION:? Diffuse interstitial prominence with suggestion mild loss of vascular distinctness.? Findings may represent early/mild pulmonary edema/CHF.? Concurrent infectious or inflammatory process not excluded if clinically appropriate.? No focal consolidation seen. ? ? Dictated by: Mahesh Gonzalez M.D. on 01/16/2023 at 15:11 ? ? Approved by: Mahesh Gonzalez M.D. on 01/16/2023 at 15:12?? ECG Data Attestation: I personally reviewed and interpreted this ECG as follows: Interpretation: Sinus rhythm rate 80 CA 180 QRS of 90 QTC [address] No acute [address] elevation depression noted. Patient has prior from 04/03/2022 no significant dynamic changes. Sinus rhythm rate of 71 CA 168 QRS 86 QTC 443. No acute ST changes appreciated. No dynamic changes. MDM Narrative Medical decision making narrative: This is a 63-year-old male with complaint of chest pain substernal, nonradiating which has improved but is still present he had some nausea with it he had some shortness of breath does have both improved. No clear acute ST elevation depres ricardo noted, chest x-ray shows some interstitial prominence. CBC shows some thrombocytopenia which appears to be chronic at 69 it is lower than his last which was last March and was 81. Creatinine is 1.04 electrolytes are otherwise normal, coags are negative, troponin is indeterminate 0.085 and was repeated and is positive. No dynamic changes on EKG. BNP shows Patient states no history of hypertension but has not allergy to lisinopril,. He is not on any daily medications he does smoke. Patient's history is concerning for cardiac cause. He received aspirin, nitro sublingual was ordered but patient states his chest pain has resolved. He still has a little bit of headache. Patient patient received a dose of morphine. Heparin bolus based on fingers 100 kilos and drip were initiated. Patient is chest pain-free. Spoke with Dr. Becerril with Cardiology from [facility] who recommends and agrees with plan to transfer on heparin for cardiac catheterization. Patient was reluctant initially to stay or be transferred. After discussion about against medical advice versus hospitalization patient elects to stay. Patient signed out to Dr. Mccollum while awaiting transfer for NSTEMI, cardiac catheterization. [2000] (Chun) Patient received in sign out from [Joann]. I have reviewed the clinical course and performed an independent history and physical exam. 0542 -patient has had no chest pain over the course of the night. We have made calls to [facility], [facility], [facility], [facility], and [facility] see and we are on multiple list but no current Dr. Mccormack 01/17/23 7am- patient signed out to me by Dr. Mccollum I have seen evaluated patient myself. Patient has history of chronic ongoing cervical pain he has some right hip pain as well, presented yesterday with substernal nonradiating chest pain which has since resolved. He was found to have NSTEMI with troponin peaking at 1.050, however this morning it is 12.5. I have spoken to him this morning he is complaining of some ongoing neck pain he normally takes some oxycodone with it he has a ice pack on his right hip as well. He denies any chest pain or shortness of breath. He is on multiple waiting lists, echocardiogram is ordered repeat EKG this morning shows no ST changes and a sinus rhythm. He continues to be on aspirin atorvastatin, heparin drip metoprolol. Patient has an abnormal echo positive troponin with initial onset of chest pain concerning for acute coronary syndrome and an event. Remains chest pain-free a blood did decrease slightly but he is awake and alert. Dr. Mattson at [facility] accepts patient Patient started complaining of a headache. Concern for intraparenchymal hemorrhage after heparin drip. Head CT done and is fortunately negative. <Devang Mccollum, - Last Filed: 01/18/23 17:25> Lab Data Labs: Lab Results 01/16/23 01/16/23 01/16/23 Range/Units 14:51 14:51 14:51 WBC 9.4 (4.5-11.0) X10^3/uL RBC 5.36 (4.5-5.9) X10^6/uL Hgb 16.9 (13.5-17.5) g/dL Hct 49.8 (41-53) % MCV 92.9 (80-100) fL MCH 31.6 (26-34) PG MCHC 34.0 (30-36) % RDW 13.7 (11.6-14.8) % Plt Count 69 L (150-400) X10^3/uL Neut % (Auto) 83.0 H (50-75) % Lymph % (Auto) 9.5 L (25-40) % Letcher % (Auto) 6.1 (3-14) % Eos % (Auto) 0.9 L (2-4) % Baso % (Auto) 0.5 (0-2) % Neut # (Auto) 7800 H (4562-6603) /uL Lymph # (Auto) 900 L (2279-1504) /uL Letcher # (Auto) 600 (0-900) /uL Eos # (Auto) 100 (0-450) /uL Baso # (Auto) 0 (0-100) /uL PT 12.2 (10.1-12.7) SECONDS INR 1.1 (0.9-1.3) APTT 29 (26-36) SECONDS Sodium 135 L (137-145) mmol/L Potassium 4.1 (3.4-5.1) mmol/L Chloride 104 (98-107) mmol/L Carbon Dioxide 24 (22-32) mmol/L BUN 11 (9-20) mg/dL Creatinine 1.04 (0.66-1.25) mg/dL Estimated GFR > 60 (>60) mL/min BUN/Creatinine Ratio 10.6 (6-22) Glucose 94 (80-110) mg/dL Calcium 8.2 L (8.4-10.2) mg/dL Magnesium 2.1 (1.6-2.3) mg/dL Total Bilirubin 0.8 (0.2-1.3) mg/dL AST 29 (17-59) IU/L ALT 28 (<50) IU/L Alkaline Phosphatase 122 (38-126) U/L Total Creatine Kinase 77 (55-170) U/L CK-MB (CK-2) TNP CK-MB (CK-2) Rel Index TNP Troponin I 0.085 H (0.01-0.034) ng/mL NT-Pro-B Natriuret Pep (<125) pg/mL Total Protein 7.4 (6.3-8.2) g/dL Albumin 3.9 (3.5-5.0) g/dL Globulin 3.5 (1.7-4.1) g/dL Albumin/Globulin Ratio 1.1 (1.0-2.8) Lipase 109 (23-300) U/L SARS-CoV-2 (PCR) (Negative) 01/16/23 01/16/23 01/16/23 Range/Units 14:51 16:20 16:50 WBC (4.5-11.0) X10^3/uL RBC (4.5-5.9) X10^6/uL Hgb (13.5-17.5) g/dL Hct (41-53) % MCV (80-100) fL MCH (26-34) PG MCHC (30-36) % RDW (11.6-14.8) % Plt Count (150-400) X10^3/uL Neut % (Auto) (50-75) % Lymph % (Auto) (25-40) % Letcher % (Auto) (3-14) % Eos % (Auto) (2-4) % Baso % (Auto) (0-2) % Neut # (Auto) (0306-8666) /uL Lymph # (Auto) (7774-2340) /uL Letcher # (Auto) (0-900) /uL Eos # (Auto) (0-450) /uL Baso # (Auto) (0-100) /uL PT (10.1-12.7) SECONDS INR (0.9-1.3) APTT (26-36) SECONDS Sodium (137-145) mmol/L Potassium (3.4-5.1) mmol/L Chloride (98-107) mmol/L Carbon Dioxide (22-32) mmol/L BUN (9-20) mg/dL Creatinine (0.66-1.25) mg/dL Estimated GFR (>60) mL/min BUN/Creatinine Ratio (6-22) Glucose (80-110) mg/dL Calcium (8.4-10.2) mg/dL Magnesium (1.6-2.3) mg/dL Total Bilirubin (0.2-1.3) mg/dL AST (17-59) IU/L ALT (<50) IU/L Alkaline Phosphatase (38-126) U/L Total Creatine Kinase (55-170) U/L CK-MB (CK-2) CK-MB (CK-2) Rel Index Troponin I 1.050 H* (0.01-0.034) ng/mL NT-Pro-B Natriuret Pep 34 (<125) pg/mL Total Protein (6.3-8.2) g/dL Albumin (3.5-5.0) g/dL Globulin (1.7-4.1) g/dL Albumin/Globulin Ratio (1.0-2.8) Lipase (23-300) U/L SARS-CoV-2 (PCR) Negative (Negative) 01/17/23 01/17/23 01/17/23 Range/Units 00:30 06:28 06:29 WBC (4.5-11.0) X10^3/uL RBC (4.5-5.9) X10^6/uL Hgb (13.5-17.5) g/dL Hct (41-53) % MCV (80-100) fL MCH (26-34) PG MCHC (30-36) % RDW (11.6-14.8) % Plt Count (150-400) X10^3/uL Neut % (Auto) (50-75) % Lymph % (Auto) (25-40) % Letcher % (Auto) (3-14) % Eos % (Auto) (2-4) % Baso % (Auto) (0-2) % Neut # (Auto) (3475-4280) /uL Lymph # (Auto) (5848-2892) /uL Letcher # (Auto) (0-900) /uL Eos # (Auto) (0-450) /uL Baso # (Auto) (0-100) /uL PT (10.1-12.7) SECONDS INR (0.9-1.3) APTT 52 H D 44 H D (26-36) SECONDS Sodium 135 L (137-145) mmol/L Potassium 4.1 (3.4-5.1) mmol/L Chloride 105 (98-107) mmol/L Carbon Dioxide 23 (22-32) mmol/L BUN 12 (9-20) mg/dL Creatinine 0.97 (0.66-1.25) mg/dL Estimated GFR > 60 (>60) mL/min BUN/Creatinine Ratio 12.4 (6-22) Glucose 86 (80-110) mg/dL Calcium 7.9 L (8.4-10.2) mg/dL Magnesium (1.6-2.3) mg/dL Total Bilirubin 1.2 (0.2-1.3) mg/dL AST 58 (17-59) IU/L ALT 32 (<50) IU/L Alkaline Phosphatase 105 (38-126) U/L Total Creatine Kinase 232 H (55-170) U/L CK-MB (CK-2) 20.80 H CK-MB (CK-2) Rel Index 9.0 H* Troponin I 12.500 H* (0.01-0.034) ng/mL NT-Pro-B Natriuret Pep (<125) pg/mL Total Protein 6.3 (6.3-8.2) g/dL Albumin 3.3 L (3.5-5.0) g/dL Globulin 3.0 (1.7-4.1) g/dL Albumin/Globulin Ratio 1.1 (1.0-2.8) Lipase (23-300) U/L SARS-CoV-2 (PCR) (Negative) 01/17/23 01/17/23 01/17/23 Range/Units 07:02 07:02 11:20 WBC 7.4 (4.5-11.0) X10^3/uL RBC 5.03 (4.5-5.9) X10^6/uL Hgb 15.8 (13.5-17.5) g/dL Hct 46.5 (41-53) % MCV 92.4 (80-100) fL MCH 31.4 (26-34) PG MCHC 34.0 (30-36) % RDW 14.0 (11.6-14.8) % Plt Count 64 L (150-400) X10^3/uL Neut % (Auto) 67.8 (50-75) % Lymph % (Auto) 19.4 L (25-40) % Letcher % (Auto) 8.4 (3-14) % Eos % (Auto) 3.6 (2-4) % Baso % (Auto) 0.8 (0-2) % Neut # (Auto) 5100 (7424-5593) /uL Lymph # (Auto) 1400 (9060-7017) /uL Letcher # (Auto) 600 (0-900) /uL Eos # (Auto) 300 (0-450) /uL Baso # (Auto) 100 (0-100) /uL PT (10.1-12.7) SECONDS INR (0.9-1.3) APTT (26-36) SECONDS Sodium (137-145) mmol/L Potassium (3.4-5.1) mmol/L Chloride (98-107) mmol/L Carbon Dioxide (22-32) mmol/L BUN (9-20) mg/dL Creatinine (0.66-1.25) mg/dL Estimated GFR (>60) mL/min BUN/Creatinine Ratio (6-22) Glucose (80-110) mg/dL Calcium (8.4-10.2) mg/dL Magnesium (1.6-2.3) mg/dL Total Bilirubin (0.2-1.3) mg/dL AST (17-59) IU/L ALT (<50) IU/L Alkaline Phosphatase (38-126) U/L Total Creatine Kinase (55-170) U/L CK-MB (CK-2) CK-MB (CK-2) Rel Index Troponin I 8.300 H* (0.01-0.034) ng/mL NT-Pro-B Natriuret Pep 168 H (<125) pg/mL Total Protein (6.3-8.2) g/dL Albumin (3.5-5.0) g/dL Globulin (1.7-4.1) g/dL Albumin/Globulin Ratio (1.0-2.8) Lipase (23-300) U/L SARS-CoV-2 (PCR) (Negative) Point of Care Testing Glucose POC 83 MDM Narrative Medical decision making narrative: This is a 63-year-old male with complaint of chest pain substernal, nonradiating which has improved but is still present he had some nausea with it he had some shortness of breath does have both improved. No clear acute ST elevation depres ricardo noted, chest x-ray shows some interstitial prominence. CBC shows some thrombocytopenia which appears to be chronic at 69 it is lower than his last which was last March and was 81. Creatinine is 1.04 electrolytes are otherwise normal, coags are negative, troponin is indeterminate 0.085 and was repeated and is positive. No dynamic changes on EKG. BNP shows Patient states no history of hypertension but has not allergy to lisinopril,. He is not on any daily medications he does smoke. Patient's history is concerning for cardiac cause. He received aspirin, nitro sublingual was ordered but patient states his chest pain has resolved. He still has a little bit of headache. Patient patient received a dose of morphine. Heparin bolus based on fingers 100 kilos and drip were initiated. Patient is chest pain-free. Spoke with Dr. Becerril with Cardiology from [facility] who recommends and agrees with plan to transfer on heparin for cardiac catheterization. Patient signed out to Dr. Mccollum while awaiting transfer for NSTEMI, cardiac catheterization. [1999] (Chun) Patient received in sign out from [Joann]. I have reviewed the clinical course and performed an independent history and physical exam. 0542 -patient has had no chest pain over the course of the night. We have made calls to [facility], [place], [place], [facility], [facility] [place], and [facility] see and we are on multiple list but no current <Mayra Mccormack DO - Last Filed: 01/17/23 14:17> Lab Data Labs: Lab Results 01/16/23 01/16/23 01/16/23 Range/Units 14:51 14:51 14:51 WBC 9.4 (4.5-11.0) X10^3/uL RBC 5.36 (4.5-5.9) X10^6/uL Hgb 16.9 (13.5-17.5) g/dL Hct 49.8 (41-53) % MCV 92.9 (80-100) fL MCH 31.6 (26-34) PG MCHC 34.0 (30-36) % RDW 13.7 (11.6-14.8) % Plt Count 69 L (150-400) X10^3/uL Neut % (Auto) 83.0 H (50-75) % Lymph % (Auto) 9.5 L (25-40) % Letcher % (Auto) 6.1 (3-14) % Eos % (Auto) 0.9 L (2-4) % Baso % (Auto) 0.5 (0-2) % Neut # (Auto) 7800 H (4509-2708) /uL Lymph # (Auto) 900 L (8475-8016) /uL Letcher # (Auto) 600 (0-900) /uL Eos # (Auto) 100 (0-450) /uL Baso # (Auto) 0 (0-100) /uL PT 12.2 (10.1-12.7) SECONDS INR 1.1 (0.9-1.3) APTT 29 (26-36) SECONDS Sodium 135 L (137-145) mmol/L Potassium 4.1 (3.4-5.1) mmol/L Chloride 104 (98-107) mmol/L Carbon Dioxide 24 (22-32) mmol/L BUN 11 (9-20) mg/dL Creatinine 1.04 (0.66-1.25) mg/dL Estimated GFR > 60 (>60) mL/min BUN/Creatinine Ratio 10.6 (6-22) Glucose 94 (80-110) mg/dL Calcium 8.2 L (8.4-10.2) mg/dL Magnesium 2.1 (1.6-2.3) mg/dL Total Bilirubin 0.8 (0.2-1.3) mg/dL AST 29 (17-59) IU/L ALT 28 (<50) IU/L Alkaline Phosphatase 122 (38-126) U/L Total Creatine Kinase 77 (55-170) U/L CK-MB (CK-2) TNP CK-MB (CK-2) Rel Index TNP Troponin I 0.085 H (0.01-0.034) ng/mL NT-Pro-B Natriuret Pep (<125) pg/mL Total Protein 7.4 (6.3-8.2) g/dL Albumin 3.9 (3.5-5.0) g/dL Globulin 3.5 (1.7-4.1) g/dL Albumin/Globulin Ratio 1.1 (1.0-2.8) Lipase 109 (23-300) U/L SARS-CoV-2 (PCR) (Negative) 01/16/23 01/16/23 01/16/23 Range/Units 14:51 16:20 16:50 WBC (4.5-11.0) X10^3/uL RBC (4.5-5.9) X10^6/uL Hgb (13.5-17.5) g/dL Hct (41-53) % MCV (80-100) fL MCH (26-34) PG MCHC (30-36) % RDW (11.6-14.8) % Plt Count (150-400) X10^3/uL Neut % (Auto) (50-75) % Lymph % (Auto) (25-40) % Letcher % (Auto) (3-14) % Eos % (Auto) (2-4) % Baso % (Auto) (0-2) % Neut # (Auto) (3090-7873) /uL Lymph # (Auto) (4211-4860) /uL Letcher # (Auto) (0-900) /uL Eos # (Auto) (0-450) /uL Baso # (Auto) (0-100) /uL PT (10.1-12.7) SECONDS INR (0.9-1.3) APTT (26-36) SECONDS Sodium (137-145) mmol/L Potassium (3.4-5.1) mmol/L Chloride (98-107) mmol/L Carbon Dioxide (22-32) mmol/L BUN (9-20) mg/dL Creatinine (0.66-1.25) mg/dL Estimated GFR (>60) mL/min BUN/Creatinine Ratio (6-22) Glucose (80-110) mg/dL Calcium (8.4-10.2) mg/dL Magnesium (1.6-2.3) mg/dL Total Bilirubin (0.2-1.3) mg/dL AST (17-59) IU/L ALT (<50) IU/L Alkaline Phosphatase (38-126) U/L Total Creatine Kinase (55-170) U/L CK-MB (CK-2) CK-MB (CK-2) Rel Index Troponin I 1.050 H* (0.01-0.034) ng/mL NT-Pro-B Natriuret Pep 34 (<125) pg/mL Total Protein (6.3-8.2) g/dL Albumin (3.5-5.0) g/dL Globulin (1.7-4.1) g/dL Albumin/Globulin Ratio (1.0-2.8) Lipase (23-300) U/L SARS-CoV-2 (PCR) Negative (Negative) 01/17/23 01/17/23 01/17/23 Range/Units 00:30 06:28 06:29 WBC (4.5-11.0) X10^3/uL RBC (4.5-5.9) X10^6/uL Hgb (13.5-17.5) g/dL Hct (41-53) % MCV (80-100) fL MCH (26-34) PG MCHC (30-36) % RDW (11.6-14.8) % Plt Count (150-400) X10^3/uL Neut % (Auto) (50-75) % Lymph % (Auto) (25-40) % Letcher % (Auto) (3-14) % Eos % (Auto) (2-4) % Baso % (Auto) (0-2) % Neut # (Auto) (6085-0916) /uL Lymph # (Auto) (2558-9413) /uL Letcher # (Auto) (0-900) /uL Eos # (Auto) (0-450) /uL Baso # (Auto) (0-100) /uL PT (10.1-12.7) SECONDS INR (0.9-1.3) APTT 52 H D 44 H D (26-36) SECONDS Sodium 135 L (137-145) mmol/L Potassium 4.1 (3.4-5.1) mmol/L Chloride 105 (98-107) mmol/L Carbon Dioxide 23 (22-32) mmol/L BUN 12 (9-20) mg/dL Creatinine 0.97 (0.66-1.25) mg/dL Estimated GFR > 60 (>60) mL/min BUN/Creatinine Ratio 12.4 (6-22) Glucose 86 (80-110) mg/dL Calcium 7.9 L (8.4-10.2) mg/dL Magnesium (1.6-2.3) mg/dL Total Bilirubin 1.2 (0.2-1.3) mg/dL AST 58 (17-59) IU/L ALT 32 (<50) IU/L Alkaline Phosphatase 105 (38-126) U/L Total Creatine Kinase 232 H (55-170) U/L CK-MB (CK-2) 20.80 H CK-MB (CK-2) Rel Index 9.0 H* Troponin I 12.500 H* (0.01-0.034) ng/mL NT-Pro-B Natriuret Pep (<125) pg/mL Total Protein 6.3 (6.3-8.2) g/dL Albumin 3.3 L (3.5-5.0) g/dL Globulin 3.0 (1.7-4.1) g/dL Albumin/Globulin Ratio 1.1 (1.0-2.8) Lipase (23-300) U/L SARS-CoV-2 (PCR) (Negative) 01/17/23 01/17/23 01/17/23 Range/Units 07:02 07:02 11:20 WBC 7.4 (4.5-11.0) X10^3/uL RBC 5.03 (4.5-5.9) X10^6/uL Hgb 15.8 (13.5-17.5) g/dL Hct 46.5 (41-53) % MCV 92.4 (80-100) fL MCH 31.4 (26-34) PG MCHC 34.0 (30-36) % RDW 14.0 (11.6-14.8) % Plt Count 64 L (150-400) X10^3/uL Neut % (Auto) 67.8 (50-75) % Lymph % (Auto) 19.4 L (25-40) % Letcher % (Auto) 8.4 (3-14) % Eos % (Auto) 3.6 (2-4) % Baso % (Auto) 0.8 (0-2) % Neut # (Auto) 5100 (8897-2996) /uL Lymph # (Auto) 1400 (8756-6469) /uL Letcher # (Auto) 600 (0-900) /uL Eos # (Auto) 300 (0-450) /uL Baso # (Auto) 100 (0-100) /uL PT (10.1-12.7) SECONDS INR (0.9-1.3) APTT (26-36) SECONDS Sodium (137-145) mmol/L Potassium (3.4-5.1) mmol/L Chloride (98-107) mmol/L Carbon Dioxide (22-32) mmol/L BUN (9-20) mg/dL Creatinine (0.66-1.25) mg/dL Estimated GFR (>60) mL/min BUN/Creatinine Ratio (6-22) Glucose (80-110) mg/dL Calcium (8.4-10.2) mg/dL Magnesium (1.6-2.3) mg/dL Total Bilirubin (0.2-1.3) mg/dL AST (17-59) IU/L ALT (<50) IU/L Alkaline Phosphatase (38-126) U/L Total Creatine Kinase (55-170) U/L CK-MB (CK-2) CK-MB (CK-2) Rel Index Troponin I 8.300 H* (0.01-0.034) ng/mL NT-Pro-B Natriuret Pep 168 H (<125) pg/mL Total Protein (6.3-8.2) g/dL Albumin (3.5-5.0) g/dL Globulin (1.7-4.1) g/dL Albumin/Globulin Ratio (1.0-2.8) Lipase (23-300) U/L SARS-CoV-2 (PCR) (Negative) Point of Care Testing Glucose POC 83 Imaging Data ECHO: Radiologist's Impression: Echocardiogram Report + + :Name: MARINE LARKIN Study Date: 01/17/2023 Height: 76 in : :[facility] ReadingLocation: Weight: 270 lb : : Gender: Male BSA: 2.5 m2 : :: 1960 Age: 63 yrs BP: 125/81 mmHg: :Reason For Study: NSTEMI : :Ordering Physician: HIWOT, : :MAYRA Performed By: Angelic Chatterjee : :Referring: MAYRA MCCORMACK : + + Interpretation Summary 1) Normal left ventricular thickness and size with low normal systolic function (EF 50-55%). 2) Mid to distal inferolateral wall are akinetic. Mid to distal anterolateral wall are hypokinetic. 3) Normal right ventricular size and function. 4) No significant valvular abnormalities. 5) Compared to the Echo done 03/16/2020, wall motion abnormalities described above are new on this study. Procedure: A two-dimensional transthoracic echocardiogram with color flow and Doppler was performed. The study quality was technically adequate. Comparison is made with the echocardiogram of 03/16/2020. The patient was in sinus rhythm with heart rates between 59-71 bpm during the exam. Left Ventricle: The left ventricle is normal in size and wall thickness. The ejection fraction is estimated to be 50-55%. Mid to distal inferolateral wall are akinetic. Mid to distal anterolateral wall are hypokinetic. No other obvious wall motion abnormalities noted. Diastolic parameters suggest a relaxation abnormality of the left ventricle, consistent with probable normal filling pressures. Right Ventricle: The right ventricle is normal in size and function. Atria: The left atrial size is normal. Right atrial size is normal. There is no Doppler evidence for an interatrial shunt. Mitral Valve: The mitral valve is normal in structure and function. There is trace mitral regurgitation. Aortic Valve: The aortic valve is trileaflet. The aortic valve opens well. There is no aortic valve stenosis. No aortic regurgitation is present. Tricuspid Valve: The tricuspid valve is normal in structure and function. There is trace tricuspid regurgitation. The right ventricular systolic pressure is estimated to be at least 16 mmHg based on an estimated right atrial pressure of 3 mm Hg. Pulmonic Valve: The pulmonic valve leaflets are thin and pliable; valve motion is normal. There is no pulmonic valvular regurgitation. Great Vessels: The aortic root is normal size. The dimensions of the ascending aorta are normal. The IVC is of normal diameter and collapses greater than 50% with a sniff. This suggests a low right atrial pressure of 3 mm Hg. Pericardium/ Pleura There is no pericardial effusion. There is no pleural effusion. MMode/2D Measurements & Calculations LVIDd: 5.4 cm LVOT diam: 2.3 cm LVIDs: 3.8 cm Ao root diam: 3.8 cm FS: 29.2 % asc Aorta Diam: 3.8 cm EPSS: 1.2 cm Ao Arch Diam (Prox Trans): 2.8 cm IVSd: 0.67 cm LVPWd: 0.83 cm LV yeung. diameter/BSA (cm/m^2): 2.1 LV sys. diameter/BSA (cm/m^2): 1.5 LA A2 area: 26.1 cm2 RA long axis: 5.9 cm LA A4 area: 22.6 cm2 RA area: 21.2 cm2 LA length (vol): 6.4 cm RA vol: 64.4 ml LA vol: 78.4 ml RA : 25.6 ml/m2 LA vol index: 31.1 ml/m2 IVC diam: 1.6 cm RVD1 (basal): 3.3 cm RVD2 (mid): 3.0 cm TAPSE: 2.2 cm Doppler Measurements & Calculations Ao V2 max: 119.2 cm/sec LVOT Max Baljeet: 71.9 cm/sec Ao V2 mean: 84.5 cm/sec LV V1 max P.1 mmHg Ao max P.7 mmHg LV V1 VTI: 16.1 cm Ao mean P.2 mmHg GUNNER(I,D): 2.7 cm2 Ao V2 VTI: 24.8 cm GUNNER(V,D): 2.6 cm2 sev ratio: 0.65 GUNNER indexed to BSA (cm^2/m^2): 1.1 MV E max baljeet: 49.6 cm/sec TR max balejet: 182.5 cm/sec MV A max baljeet: 57.5 cm/sec TR max P.3 mmHg MV E/A: 0.86 PA V2 max: 91.3 cm/sec Med Peak E' Baljeet: 6.1 cm/sec PA V2 mean: 57.3 cm/sec E/E' med: 8.1 PA mean P.5 mmHg Lat Peak E' Baljeet: 9.7 cm/sec PA pr(Accel): 46.5 mmHg E/E' lat: 5.1 E/e' average: 6.6 MV dec time: 0.36 sec SV(LVOT): 68.1 ml Reading Physician:10:[address] scan - head: Radiologist's Impression: PROCEDURE:? CT HEAD/BRAIN WO CON ? INDICATIONS:? headache on heparin drip ? TECHNIQUE:? Noncontrast 4.5 mm thick angled axial sections acquired from the foramen magnum to the vertex, with coronal and sagittal reformats.? For radiation dose reduction, the following was used:? automated exposure control, adjustment of mA and/or kV according to patient size.? ? COMPARISON:? [facility], CT, CT HEAD/BRAIN WO CON, 07/25/2020, 13:15. ? FINDINGS:? Image quality:? Excellent.? ? CSF spaces:? Basal cisterns are patent.? No extra-axial fluid collections.? Ventricles are normal in size and shape.? ? Brain:? No midline shift.? No intracranial masses or hemorrhage.? Raygoza-white matter interface is normal.? ? Skull and face:? Calvarium and visualized facial bones are intact, without suspicious lesions.? ? Sinuses:? Visualized sinuses and mastoids are clear.? ? IMPRESSION:? ? 1. No acute intracranial process. ? Dictated by: Anna Herzog M.D. on 01/17/2023 at 13:06 ?? ECG Data Interpretation: Sinus rhythm rate 80 CA 180 QRS of [address] elevation depression noted. Patient has prior from 04/03/2022 no significant dynamic changes. Sinus rhythm rate of 71 CA 168 QRS 86 QTC [address] No acute ST changes appreciated. No dynamic changes. EKG #3 sinus rhythm rate 62 CA interval 160 QRS [address] changes no T-wave inversions similar to previous EKGs MDM Narrative Medical decision making narrative: This is a 63-year-old male with complaint of chest pain substernal, nonradiating which has improved but is still present he had some nausea with it he had some shortness of breath does have both improved. No clear acute ST elevation depression noted, chest x-ray shows some interstitial prominence. CBC shows some thrombocytopenia which appears to be chronic at 69 it is lower than his last which was last March and was 81. Creatinine is 1.04 electrolytes are otherwise normal, coags are negative, troponin is indeterminate 0.085 and was repeated and is positive. No dynamic changes on EKG. BNP shows Patient states no history of hypertension but has not allergy to lisinopril,. He is not on any daily medications he does smoke. Patient's history is concerning for cardiac cause. He received aspirin, nitro sublingual was ordered but patient states his chest pain has resolved. He still has a little bit of headache. Patient patient received a dose of morphine. Heparin bolus based on fingers 100 kilos and drip were initiated. Patient is chest pain-free. Spoke with Dr. Becerril with Cardiology from [facility] who recommends and agrees with plan to transfer on heparin for cardiac catheterization. Patient signed out to Dr. Mccollum while awaiting transfer for NSTEMI, cardiac catheterization. [1999] (Chun) Patient received in sign out from [Joann]. I have reviewed the clinical course and performed an independent history and physical exam. 0542 -patient has had no chest pain over the course of the night. We have made calls to [facility], [place], [place], [facility], [facility] [place], and [facility] see and we are on multiple list but no current Dr. Mccormack 01/17/23 7am- patient signed out to me by Dr. Mccollum I have seen evaluated patient myself. Patient has history of chronic ongoing cervical pain he has some right hip pain as well, presented yesterday with substernal nonradiating chest pain which has since resolved. He was found to have NSTEMI with troponin peaking at 1.050, however this morning it is 12.5. I have spoken to him this morning he is complaining of some ongoing neck pain he normally takes some oxycodone with it he has a ice pack on his right hip as well. He denies any chest pain or shortness of breath. He is on multiple waiting lists, echocardiogram is ordered repeat EKG this morning shows no ST changes and a sinus rhythm. He continues to be on aspirin atorvastatin, heparin drip meto prolol. Patient has an abnormal echo positive troponin with initial onset of chest pain concerning for acute coronary syndrome and an event. Remains chest pain-free a blood did decrease slightly but he is awake and alert. Dr. Mattson at [facility] accepts patient Patient started complaining of a headache. Concern for intraparenchymal hemorrhage after heparin drip. Head CT done and is fortunately negative. <Mayra Mccormack, DO - Last Filed: 01/17/23 14:17> Critical Care Time Critical Care Time: Yes Total Critical Care Time: 45 Attestation: The high probability of a clinically significant, sudden or life threatening deterioration of the [cardiovascular] system(s) required my full and direct attention, intervention and personal management. The aggregate critical care time was [45] minutes. This time is in addition to time spent performing reported procedures but includes the following: [x] Data Review and interpretation [x] Patient assessment and monitoring of vital signs [x] Documentation [x] Medication orders and management Discharge Plan Departure Patient Disposition: [facility] Clinical Impression: Non-ST elevation [place] (NSTEMI) Prescriptions: No Action oxycodone 5 mg tablet 10 mg PO Q6H PRN (Reason: pain) Qty: 30 0RF Rx Instructions: take 1-2 tabs every 4-6 hours as needed for post operative pain. ondansetron 4 mg tablet,disintegrating 4 mg PO Q6H PRN (Reason: nausea) simethicone [Gas Relief (simethicone)] 80 mg tablet,chewable 80 mg PO TID-QID PRN (Reason: Acid Reflux) spironolactone 100 mg tablet 100 mg PO DAILY PRN (Reason: Edema) furosemide 40 mg tablet 40 mg PO DAILY PRN (Reason: Edema) famotidine 20 mg tablet 20 mg PO BID PRN (Reason: Heartburn) acetaminophen [Tylenol Extra Strength] 500 mg tablet 1,000 mg PO Q6H Qty: 20 0RF Rx Instructions: available over the counter, but I do recommend taking this dose around the clock for the first week. docusate sodium [Colace] 100 mg capsule 100 mg PO BID Qty: 20 0RF Rx Instructions: Take while taking oxycodone for pain to prevent constipation. If you are constipated you may take Miralax or call [facility] for advice. Referrals: Vitor Maravilla MD [Primary Care Provider] -
[2023-01-16 16:30] VITALS: PULSE 72; RESP 21
[2023-01-16 16:31] VITALS: BP 157/94; PULSE 78; RESP 39
[2023-01-16 16:41] LABS: NT-proBNP (BNP-Adult 18+) 34 pg/mL (<125)
[2023-01-16 17:00] VITALS: BP 153/86; PULSE 71; RESP 20; O2SAT 97
[2023-01-16 17:09] LABS: COVID19 -Nasal RAPID Negative (Negative)
[2023-01-16] MEDS: ASPIRIN 81 MG CHEW TAB 324 MG PO (17:11)
[2023-01-16] MEDS: MORPHINE 4 MG/ML INJ IV (17:39)
[2023-01-16] MEDS: HEPARIN DRIP 25,000 UNIT/500 ML IV.SOLN 20 UNIT IV (18:28)
[2023-01-16] MEDS: HEPARIN 5,000 UNIT/ML VIAL 5000 UNIT IV (18:28)
[2023-01-16] MEDS: METOPROLOL IR 25 MG TABLET PO (19:31)
[2023-01-16] MEDS: ATORVASTATIN 20 MG TABLET 40 MG PO (19:32)
--- NOTE | 2023-01-16 20:14 | PC.NURSE ---
DENTAL CERAMIST ASSISTANT Note: This DENTAL CERAMIST ASSISTANT called [facility] to transfer pt. Pt was waitlisted at [facility], [facility], [place] and [facility]. [place], [facility], [facility] and [facility] have no beds and/or waitlist. [facility] was contacted at [phone].
[2023-01-16] MEDS: OXYCODONE/ACETAMINOPHEN 5/325 TABLET 1 TAB PO (20:28)
[2023-01-17] VITALS (51 sets, daily range): BP systolic 85–135; BP diastolic 52–86; PULSE 55–79; RESP 14–28; TEMP 36.4; O2SAT 92–97
[2023-01-17 00:54] LABS: PTT Partial Thromboplastin Tim 52 SECONDS (26-36)
--- NOTE | 2023-01-17 02:01 | PC.NURSE ---
X RAY OPERATOR Note This X RAY OPERATOR called [facility] and [facility] for updates. All hospitals are currently still full and said to check back in the morning after discharges.
[2023-01-17] MEDS: OXYCODONE/ACETAMINOPHEN 5/325 TABLET 1 TAB PO (02:37)
[2023-01-17] MEDS: MORPHINE 4 MG/ML INJ IV ×2 (05:57→13:03)
--- NOTE | 2023-01-17 06:12 | PC.NURSE ---
Patients IV infiltrated on his right forearm, notable bruising. Pressure bandage applied, IV removed physician aware and seen patient.
[2023-01-17 07:06] LABS: Alanine Aminotransferase 32 IU/L (<50); Albumin 3.3 g/dL (3.5-5.0); Albumin Globulin Ratio 1.1 (1.0-2.8); Alkaline Phosphatase 105 U/L (38-126); Aspartate Aminotransferase 58 IU/L (17-59); BUN Creatinine Ratio 12.4 (6-22); Bilirubin Total 1.2 mg/dL (0.2-1.3); Blood Urea Nitrogen 12 mg/dL (9-20); Calcium 7.9 mg/dL (8.4-10.2); Carbon Dioxide 23 mmol/L (22-32); Chloride 105 mmol/L (98-107); Creatine Kinase 232 U/L (55-170); Estimated Glomerular Filt Rate > 60 mL/min (>60); Glucose 86 mg/dL (80-110); Potassium 4.1 mmol/L (3.4-5.1); Sodium 135 mmol/L (137-145); Total Protein 6.3 g/dL (6.3-8.2)
[2023-01-17 07:12] LABS: Add Manual Diff / Slide Review NO; Basophils Absolute Auto 100 /uL (0-100); Basophils Percent Auto 0.8 % (0-2); Eosinophils Absolute Auto 300 /uL (0-450); Eosinophils Percent Auto 3.6 % (2-4); Hematocrit 46.5 % (41-53); Hemoglobin 15.8 g/dL (13.5-17.5); Lymphocytes Absolute Auto 1400 /uL (1100-4500); Lymphocytes Percent Auto 19.4 % (25-40); Mean Corpuscular Hemoglobin 31.4 PG (26-34); Mean Corpuscular Volume 92.4 fL (80-100); Monocytes Absolute Auto 600 /uL (0-900); Monocytes Percent Auto 8.4 % (3-14); Neutrophils Absolute Auto 5100 /uL (1500-7000); Neutrophils Percent Auto 67.8 % (50-75); Platelet Count 64 X10^3/uL (150-400); Red Blood Cell Count 5.03 X10^6/uL (4.5-5.9); White Blood Cell Count 7.4 X10^3/uL (4.5-11.0)
[2023-01-17 07:21] LABS: HEMOLYSIS < 15 (0-50)
[2023-01-17 07:21] LABS: PTT Partial Thromboplastin Tim 44 SECONDS (26-36)
[2023-01-17 07:33] LABS: NT-proBNP (BNP-Adult 18+) 168 pg/mL (<125)
--- NOTE | 2023-01-17 07:46 | PC.NURSE ---
Heparin verified with Shellie JIMENEZ.
[2023-01-17] MEDS: OXYCODONE IR 5 MG TABLET PO (07:55)
[2023-01-17] MEDS: ONDANSETRON 4 MG ODT SL (07:56)
--- NOTE | 2023-01-17 08:00 | PC.NURSE ---
Patient alert and oriented x4/4, re-educated on plan of care by Dr. Mccormack and this RN, pt verbalizes understanding. Pt speaks in clear and coherent sentences. Left side IV patent, and intact. Right arm with small amount of swelling and ecchymosis around previous IV site. Moving all extremities equally against force. Assists self to use urinal, repositioning self independently in stretcher, call light within reach.
--- NOTE | 2023-01-17 08:32 | DI.ECHO.S_ITS ---
Echocardiogram Report + + :Name: MARINE VILLAGOMEZ Study Date: 01/17/2023 Height: 76 in : :[facility] ReadingLocation: Weight: 270 lb : : Gender: Male BSA: 2.5 m2 : :: 1960 Age: 63 yrs BP: 125/81 mmHg: :Reason For Study: NSTEMI : :Ordering Physician: HIWOT, : :MANISH Performed By: Angelic Chatterjee : :Referring: MANISH MI : + + Interpretation Summary 1) Normal left ventricular thickness and size with low normal systolic function (EF 50-55%). 2) Mid to distal inferolateral wall are akinetic. Mid to distal anterolateral wall are hypokinetic. 3) Normal right ventricular size and function. 4) No significant valvular abnormalities. 5) Compared to the Echo done 03/16/2020, wall motion abnormalities described above are new on this study. Procedure: A two-dimensional transthoracic echocardiogram with color flow and Doppler was performed. The study quality was technically adequate. Comparison is made with the echocardiogram of 03/16/2020. The patient was in sinus rhythm with heart rates between 59-71 bpm during the exam. Left Ventricle: The left ventricle is normal in size and wall thickness. The ejection fraction is estimated to be 50-55%. Mid to distal inferolateral wall are akinetic. Mid to distal anterolateral wall are hypokinetic. No other obvious wall motion abnormalities noted. Diastolic parameters suggest a relaxation abnormality of the left ventricle, consistent with probable normal filling pressures. Right Ventricle: The right ventricle is normal in size and function. Atria: The left atrial size is normal. Right atrial size is normal. There is no Doppler evidence for an interatrial shunt. Mitral Valve: The mitral valve is normal in structure and function. There is trace mitral regurgitation. Aortic Valve: The aortic valve is trileaflet. The aortic valve opens well. There is no aortic valve stenosis. No aortic regurgitation is present. Tricuspid Valve: The tricuspid valve is normal in structure and function. There is trace tricuspid regurgitation. The right ventricular systolic pressure is estimated to be at least 16 mmHg based on an estimated right atrial pressure of 3 mm Hg. Pulmonic Valve: The pulmonic valve leaflets are thin and pliable; valve motion is normal. There is no pulmonic valvular regurgitation. Great Vessels: The aortic root is normal size. The dimensions of the ascending aorta are normal. The IVC is of normal diameter and collapses greater than 50% with a sniff. This suggests a low right atrial pressure of 3 mm Hg. Pericardium/ Pleura There is no pericardial effusion. There is no pleural effusion. MMode/2D Measurements & Calculations LVIDd: 5.4 cm LVOT diam: 2.3 cm LVIDs: 3.8 cm Ao root diam: 3.8 cm FS: 29.2 % asc Aorta Diam: 3.8 cm EPSS: 1.2 cm Ao Arch Diam (Prox Trans): 2.8 cm IVSd: 0.67 cm LVPWd: 0.83 cm LV yeung. diameter/BSA (cm/m^2): 2.1 LV sys. diameter/BSA (cm/m^2): 1.5 LA A2 area: 26.1 cm2 RA long axis: 5.9 cm LA A4 area: 22.6 cm2 RA area: 21.2 cm2 LA length (vol): 6.4 cm RA vol: 64.4 ml LA vol: 78.4 ml RA : 25.6 ml/m2 LA vol index: 31.1 ml/m2 IVC diam: 1.6 cm RVD1 (basal): 3.3 cm RVD2 (mid): 3.0 cm TAPSE: 2.2 cm Doppler Measurements & Calculations Ao V2 max: 119.2 cm/sec LVOT Max Baljeet: 71.9 cm/sec Ao V2 mean: 84.5 cm/sec LV V1 max P.1 mmHg Ao max P.7 mmHg LV V1 VTI: 16.1 cm Ao mean P.2 mmHg GUNNER(I,D): 2.7 cm2 Ao V2 VTI: 24.8 cm GUNNER(V,D): 2.6 cm2 sev ratio: 0.65 GUNNER indexed to BSA (cm^2/m^2): 1.1 MV E max baljeet: 49.6 cm/sec TR max baljeet: 182.5 cm/sec MV A max baljeet: 57.5 cm/sec TR max P.3 mmHg MV E/A: 0.86 PA V2 max: 91.3 cm/sec Med Peak E' Baljeet: 6.1 cm/sec PA V2 mean: 57.3 cm/sec E/E' med: 8.1 PA mean P.5 mmHg Lat Peak E' Baljeet: 9.7 cm/sec PA pr(Accel): 46.5 mmHg E/E' lat: 5.1 E/e' average: 6.6 MV dec time: 0.36 sec SV(LVOT): 68.1 ml Reading Physician:10:51 AM
[2023-01-17] MEDS: METOPROLOL IR 25 MG TABLET PO (09:15)
[2023-01-17] MEDS: ASPIRIN 81 MG CHEW TAB 324 MG PO (09:18)
--- NOTE | 2023-01-17 12:16 | DI.CT.S_ITS ---
PROCEDURE: CT HEAD/BRAIN WO CON INDICATIONS: headache on heparin drip TECHNIQUE: Noncontrast 4.5 mm thick angled axial sections acquired from the foramen magnum to the vertex, with coronal and sagittal reformats. For radiation dose reduction, the following was used: automated exposure control, adjustment of mA and/or kV according to patient size. COMPARISON: [facility], CT, CT HEAD/BRAIN WO CON, 07/25/2020, 13:15. FINDINGS: Image quality: Excellent. CSF spaces: Basal cisterns are patent. No extra-axial fluid collections. Ventricles are normal in size and shape. Brain: No midline shift. No intracranial masses or hemorrhage. Raygoza-white matter interface is normal. Skull and face: Calvarium and visualized facial bones are intact, without suspicious lesions. Sinuses: Visualized sinuses and mastoids are clear. IMPRESSION: 1. No acute intracranial process. Dictated by: Anna Herzog M.D. on 01/17/2023 at 13:06 Approved by: Anna Herzog M.D. on 01/17/2023 at 13:07
--- NOTE | 2023-01-17 12:24 | PC.NURSE ---
Pt reports headache and nause. Reports this is not abnormal for him to experience at times. Pt also noted to be diaphoretic, states I generally don't feel well. Dr. Mccormack notified and new orders received.
--- NOTE | 2023-01-17 12:46 | PC.NURSE ---
Report called to Tenisha JIMENEZ at [phone].
[2023-01-17] MEDS: ONDANSETRON 4 MG/2 ML INJ IV (13:02)
== END 2023-01-17 13:23 | disposition short-term general hospital (02) ==
PROVIDERS: Emergency Medicine; Emergency Provider Emergency Medicine; PCP Internal Medicine
DX: I21.4 Non-ST elevation (NSTEMI) myocardial infarction (principal); G89.29 Other chronic pain; R51.9 Headache, unspecified; R77.8 Other specified abnormalities of plasma proteins; R11.0 Nausea; R06.02 Shortness of breath; Z20.822 Contact with and (suspected) exposure to COVID-19
CPT/HCPCS: 36415; 70450; 71045; 80053; 82550; 82553; 82962; 83690; 83735; 83880; 84484; 85025; 85610; 85730; 87635; 93005; 93306; 96365; 96366; 96375; 96376; 99285; 99291; C9803; J1644; J2270; J2405

== ENCOUNTER → 2023-04-21 09:31 | Outpatient (CLI) | payer MEDICARE, MEDICAID, SELFPAY ==
[2018-08-01 09:00] VITALS: PULSE 43; RESP 16; O2SAT 96
[2021-09-07 13:52] VITALS: BMI 34.2
--- NOTE | 2023-04-21 | DI.ECHO.S_ITS ---
[facility] +---------+ : : [address] [place] : : : : [id number] : : : : Phone: [phone]+ Echocardiogram Report + + :Name: MARINE VILLAGOMEZ Study Date: 04/21/2023 Height: 76 in : :[facility] ReadingLocation: Weight: 265 lb : : Gender: Male BSA: 2.5 m2 : :: 1960 Age: 63 yrs BP: 109/74 mmHg: :Reason For Study: ABNORMAL ECHOCARDIOGRAM : :Ordering Physician: SIMON, : :VY Performed By: Angelic Chatterjee : :Referring: VY MONTES : + + Interpretation Summary The left ventricle is normal in size and wall thickness. Left ventricular ejection fraction is estimated to be 50 +/- 5%. Previous LVEF 50-55%. There is akinesis of mid to distal inferolateral wall, hypokinetic basal inferior wall and subtle hypokinesis of mid to distal anterior lateral wall without any significant change. The right ventricle is normal in size and function. No significant valvular pathology seen. The IVC is of normal diameter and collapses greater than 50% with a sniff. This suggests a low right atrial pressure of 3 mm Hg. Procedure: A two-dimensional transthoracic echocardiogram with color flow and Doppler was performed. The study quality was technically adequate. Comparison is made with the echocardiogram of 01/17/2023. The patient was in sinus rhythm with heart rates between 64-70 bpm during the exam. Left Ventricle: The left ventricle is normal in size and wall thickness. There is no thrombus. Left ventricular ejection fraction is estimated to be 50 +/- 5%. There is akinesis of mid to distal inferolateral wall, hypokinetic basal inferior wall and subtle hypokinesis of mid to distal anterior lateral wall without any significant change. Right Ventricle: The right ventricle is normal in size and function. Atria: The left atrial size is normal. Right atrial size is normal. There is no Doppler evidence for an interatrial shunt. Mitral Valve: The mitral valve is normal in structure and function. There is mild mitral regurgitation. Aortic Valve: The aortic valve is trileaflet. The aortic valve opens well. There is no aortic valve stenosis. No aortic regurgitation is present. Tricuspid Valve: The tricuspid valve is normal in structure and function. There is trace tricuspid regurgitation. Pulmonary artery pressures cannot be estimated because of the lack of a measurable TR jet velocity. Pulmonic Valve: The pulmonic valve leaflets are thin and pliable; valve motion is normal. There is no pulmonic valvular regurgitation. Great Vessels: The aortic root is normal size. The dimensions of the ascending aorta are normal. The IVC is of normal diameter and collapses greater than 50% with a sniff. This suggests a low right atrial pressure of 3 mm Hg. Pericardium/ Pleura There is no pericardial effusion. There is an anterior echo-free space consistent with a fat pad. There is no pleural effusion. MMode/2D Measurements & Calculations LVIDd: 5.3 cm LVOT diam: 2.3 cm LVIDs: 3.7 cm Ao root diam: 3.9 cm FS: 30.7 % asc Aorta Diam: 3.7 cm EPSS: 1.3 cm Ao Arch Diam (Prox Trans): 3.3 cm IVSd: 0.84 cm LVPWd: 0.83 cm LV yeung. diameter/BSA (cm/m^2): 2.1 LV sys. diameter/BSA (cm/m^2): 1.5 LA A2 area: 22.5 cm2 RA long axis: 4.8 cm LA A4 area: 19.3 cm2 RA area: 17.5 cm2 LA length (vol): 6.0 cm RA vol: 54.1 ml LA vol: 61.6 ml RA : 21.6 ml/m2 LA vol index: 24.7 ml/m2 IVC diam: 1.1 cm RVD1 (basal): 4.0 cm RVD2 (mid): 3.1 cm TAPSE: 2.0 cm Doppler Measurements & Calculations Ao V2 max: 102.5 cm/sec LVOT Max Baljeet: 73.7 cm/sec Ao V2 mean: 76.3 cm/sec LV V1 max P.2 mmHg Ao max P.2 mmHg LV V1 VTI: 15.3 cm Ao mean P.5 mmHg GUNNER(I,D): 2.9 cm2 Ao V2 VTI: 21.8 cm GUNNER(V,D): 3.0 cm2 sev ratio: 0.70 GUNNER indexed to BSA (cm^2/m^2): 1.2 MV E max baljeet: 41.9 cm/sec PA V2 max: 95.3 cm/sec MV A max baljeet: 80.5 cm/sec PA V2 mean: 66.9 cm/sec MV E/A: 0.52 PA mean P.0 mmHg Med Peak E' Baljeet: 4.7 cm/sec PA pr(Accel): 44.7 mmHg E/E' med: 8.8 Lat Peak E' Baljeet: 6.6 cm/sec E/E' lat: 6.4 E/e' average: 7.6 MV dec time: 0.37 sec SV(LVOT): 63.7 ml Reading Physician:05:00 PM
== END ==
PROVIDERS: PCP Internal Medicine; Referring Provider Nurse Practitioner Acute Care; Visit Provider Nurse Practitioner Acute Care
DX: I34.0 Nonrheumatic mitral (valve) insufficiency (principal); R93.1 Abnormal findings on diagnostic imaging of heart and coronary circulation
CPT/HCPCS: 93306

== ENCOUNTER → 2023-04-21 09:35 | Outpatient (CLI) | payer MEDICARE, MEDICAID, SELFPAY ==
[2018-08-01 09:00] VITALS: PULSE 43; RESP 16; O2SAT 96
[2021-09-07 13:52] VITALS: BMI 34.2
[2023-04-22 08:39] LABS: Alpha Fetoprotein 2.7 ng/mL (0.0-8.4)
== END ==
PROVIDERS: PCP Internal Medicine; Referring Provider Internal Medicine Gastroenterology; Visit Provider Internal Medicine Gastroenterology
DX: K74.60 Unspecified cirrhosis of liver (principal); I85.00 Esophageal varices without bleeding; R18.8 Other ascites
CPT/HCPCS: 36415; 82105

== ENCOUNTER 2023-04-25 03:53 | Emergency (ER) | payer MEDICARE, MEDICAID, SELFPAY ==
[2018-08-01 09:00] VITALS: PULSE 43; RESP 16; O2SAT 96
[2021-09-07 13:52] VITALS: BMI 34.2
[2023-04-25 04:00] VITALS: BP 134/85; PULSE 70; RESP 16; O2SAT 98; BMI 32.8
--- NOTE | 2023-04-25 04:02 | DI.RAD.S_ITS ---
PROCEDURE: XR RIBS LT MIN 3V W CXR1V INDICATIONS: L sided rib pain after fall TECHNIQUE: 3 views of the left ribs were acquired, along with a single view chest. COMPARISON: None. FINDINGS: Surgical changes and devices: Partially seen cervical fusion hardware. Bones and chest wall: No displaced fracture. No dislocation. Lungs and pleura: Low volumes. No dense consolidation or pleural effusion. Mediastinum: Mediastinal contours appear normal. Heart size is normal. IMPRESSION: No acute radiographic abnormality. If there is high concern for occult injury, consider repeat radiography or cross-sectional imaging. Dictated by: Jovani Alejo M.D. on 04/25/2023 at 4:51 Approved by: Jovani Alejo M.D. on 04/25/2023 at 4:52
[2023-04-25 04:05] VITALS: TEMP 36.7
[2023-04-25] MEDS: HYDROCODONE/ACET 5/325 TABLET 1 TAB PO (04:07)
--- NOTE | 2023-04-25 04:09 | DI.RAD.S_ITS ---
PROCEDURE: XR LUMBAR SPINE 2-3V INDICATIONS: pain after fall TECHNIQUE: 3 views of the lumbar spine were acquired. COMPARISON: None. FINDINGS: Bones: Slight reversal of normal lumbar lordosis. There is trace retrolisthesis of L3 on L4. Moderate overall degenerative changes with disc space height loss, osteophytes, and facet arthropathy. Vertebral body heights are well maintained otherwise. No traumatic subluxation. Soft tissues: No suspicious calcifications. Cholecystectomy clips. IMPRESSION: No acute radiographic abnormality. There are moderate degenerative changes. If there is high concern for occult injury, consider repeat radiography or cross-sectional imaging. Dictated by: Jovani Alejo M.D. on 04/25/2023 at 4:54 Approved by: Jovani Alejo M.D. on 04/25/2023 at 4:55
--- NOTE | 2023-04-25 04:09 | DI.RAD.S_ITS ---
PROCEDURE: XR THORACIC SPINE 3V INDICATIONS: pain after fall TECHNIQUE: 3 views of the thoracic spine were acquired. COMPARISON: None. FINDINGS: Bones: Partially seen cervical fusion hardware. Mild rightward spinal curvature. Mild degenerative changes. Vertebral body heights are normally maintained. No traumatic subluxation. Soft tissues: No paravertebral stripe thickening. IMPRESSION: Mild degenerative changes in the thoracic spine. No acute radiographic abnormality. Slight rightward curvature. If there is high concern for occult injury, consider repeat radiography or cross-sectional imaging. Dictated by: Jovani Alejo M.D. on 04/25/2023 at 4:53 Approved by: Jovani Alejo M.D. on 04/25/2023 at 4:54
--- NOTE | 2023-04-25 04:10 | ED_ITS ---
HPI - Fall General Chief Complaint: Fall Stated Complaint: fell and having hard time breathing Time Seen by Provider: 04/25/23 03:56 Source: patient Mode of arrival: Ambulatory History of Present Illness HPI Narrative: Patient is a 63-year-old male who approximately 12-24 hours ago was working in his garage. He states that he slipped on a air hose that was on the ground. He fell landing on his left side. No loss of consciousness. He has had cervical spine surgery in the past with ari placement. He describes discomfort in his thoracic and lumbar spine and also on his left flank region. Also states that it hurts to breathe. He did not lose consciousness. He is no extremity injury. Related Data Home Medications Medication Instructions Recorded Confirmed famotidine 20 mg tablet 20 mg PO BID PRN Heartburn 07/12/22 08/16/22 furosemide 40 mg tablet 40 mg PO DAILY PRN Edema 07/12/22 08/16/22 ondansetron 4 mg disintegrating 4 mg PO Q6H PRN nausea 07/12/22 08/16/22 tablet simethicone 80 mg chewable tablet 80 mg PO TID-QID PRN Acid Reflux 07/12/22 08/16/22 (Gas Relief (simethicone)) spironolactone 100 mg tablet 100 mg PO DAILY PRN Edema 07/12/22 08/16/22 Previous Rx's Medication Instructions Recorded acetaminophen 500 mg tablet 1,000 mg PO Q6H #20 tabs 08/02/22 (Tylenol Extra Strength) docusate sodium 100 mg capsule 100 mg PO BID #20 caps 08/02/22 (Colace) oxycodone 5 mg tablet 10 mg PO Q6H PRN pain #30 tabs 08/16/22 Allergies Allergy/AdvReac Type Severity Reaction Status Date / Time lisinopril Allergy Severe Swelling Verified 04/25/23 04:05 of Lip/Tongue/Throat citalopram [CITALOPRAM] Allergy Unknown SEIZURES Verified 04/25/23 04:05 bupropion [From Aplenzin] AdvReac Nausea Verified 04/25/23 04:05 fluoxetine AdvReac Nausea Verified 04/25/23 04:05 Review of Systems Constitutional Constitutional: Reports system reviewed and no additional complaints, except as documented Cardiovascular Cardiovascular: Reports system reviewed and no additional complaints, except as documented Respiratory Respiratory: Reports system reviewed and no additional complaints, except as documented Gastrointestinal Gastrointestinal: Reports system reviewed and no additional complaints, except as documented Integumentary/Breasts Skin/Breast: Reports system reviewed and no additional complaints, except as documented Neurologic Neurologic: Reports system reviewed and no additional complaints, except as documented Patient History Medical History Alcoholism in remission Cervical stenosis of spine Chronic thoracic spine pain Dyspepsia History of rib fracture History of stroke Hx of angioedema Hypertension Injury of hip, right Intermittent lightheadedness Male pelvic pain Other congenital malformation of penis Pain in male perineum Surgical History History of eye surgery History of Blanche fundoplication (08/2008) History of splenectomy History of surgery (05/2006) Hx laparoscopic cholecystectomy S/P cholecystectomy (07/2021) Status post cervical spinal fusion (07/2018) Family History Father Congestive heart failure Lymph edema Cancer Mother Perforated sigmoid colon Hypertension Brother Stroke Sister Hypertension Social History marital status: number of children: 4 household members: significant other and other Smoking Status: Current every day smoker alcohol intake: former caffeine: Yes Smoking Status: Current every day smoker tobacco type: cigarettes alcohol intake frequency: 0-2 drinks per day Alcohol type: hard liquor Substance Use Type: does not use Exam Initial Vital Signs Initial Vital Signs: Vital Signs Pulse Rate 70 04/25/23 04:00 Respiratory Rate 16 04/25/23 04:00 Blood Pressure 134/85 04/25/23 04:00 Pulse Oximetry 98 04/25/23 04:00 Oxygen Delivery Method Room Air 04/25/23 04:00 HENMT Head: normal to inspection and normocephalic Chest Chest: No crepitus and tenderness (Left lateral chest) Resp Effort & Inspection: normal respiratory effort Auscultation: clear to auscultation bilaterally Cardio Rate: regular rate Rhythm: regular rhythm GI Inspection: normal to inspection Palpation: soft, No firm and No tender Back/Spine/Pelvis Thoracic/Lumbar Spine: paraspinal tenderness, thoracic spinal tenderness and lumbar spinal tenderness Skin General: no rashes or lesions noted Neuro General: patient alert and patient awake Extrem General: normal to inspection and capillary refill normal Course Orders Ordered: ED Orders 04/25/23 04:02 XR ribs LT min 3V w CXR1V Stat 04/25/23 04:09 XR lumbar spine 2-3V Stat XR thoracic spine 3V Stat Discontinued Medications Hydrocodone Bitart/Acetaminophen (Hydrocodone/Acet 5/325 Tablet) 1 tab PO NOW ONE Stop: 04/25/23 04:03 Last Admin: 04/25/23 04:07 Dose: 1 tab Documented By: AP Vital Signs Vital signs: Vital Signs - 8 hr 04/25/23 04:00 04/25/23 04:05 Temperature 98.1 F Pulse Rate 70 Respiratory Rate 16 Blood Pressure 134/85 Pulse Oximetry 98 Oxygen Delivery Method Room Air MDM - Fall Imaging Data rib x-ray: Radiologist's Impression: PROCEDURE:? XR RIBS LT MIN 3V W CXR1V ? INDICATIONS:? L sided rib pain after fall ? TECHNIQUE:? 3 views of the left ribs were acquired, along with a single view chest.? ? COMPARISON:? None. ? FINDINGS:? ? Surgical changes and devices:? Partially seen cervical fusion hardware. ? Bones and chest wall:? No displaced fracture.? No dislocation. ? Lungs and pleura:? Low volumes.? No dense consolidation or pleural effusion. ? Mediastinum:? Mediastinal contours appear normal.? Heart size is normal.? ? IMPRESSION:? No acute radiographic abnormality. If there is high concern for occult injury, consider repeat radiography or cross-sectional imaging. t spine x-ray: Radiologist's Impression: PROCEDURE:? XR THORACIC SPINE 3V ? INDICATIONS:? pain after fall ? TECHNIQUE:? 3 views of the thoracic spine were acquired.? ? COMPARISON:? None. ? FINDINGS:? ? Bones:? Partially seen cervical fusion hardware.? Mild rightward spinal curvature.? Mild degenerative changes.? Vertebral body heights are normally maintained.? No traumatic subluxation. ? Soft tissues:? No paravertebral stripe thickening.? ? ? IMPRESSION:? Mild degenerative changes in the thoracic spine.? No acute radiographic abnormality.? Slight rightward curvature.? If there is high concern for occult injury, consider repeat radiography or cross-sectional imaging. l spine x-ray: Radiologist's Impression: PROCEDURE:? XR LUMBAR SPINE 2-3V ? INDICATIONS:? pain after fall ? TECHNIQUE:? 3 views of the lumbar spine were acquired.? ? COMPARISON:? None. ? FINDINGS:? ? Bones:? Slight reversal of normal lumbar lordosis.? There is trace retrolisth esis of L3 on L4.? Moderate overall degenerative changes with disc space height loss, osteophytes, and facet arthropathy.? Vertebral body heights are well maintained otherwise.? No traumatic subluxation. ? Soft tissues:? No suspicious calcifications.? Cholecystectomy clips. ? ? IMPRESSION:? No acute radiographic abnormality.? There are moderate degenerative changes. ?If there is high concern for occult injury, consider repeat radiography or cross-sectional imaging. [facility] Narrative Medical decision making narrative: X-rays today show no acute pathology. He is no abdominal tenderness. Alert oriented. No respiratory distress. Lungs are clear. Not hypoxic. No indication for further radiologic studies. Will discharge home with medications to try to control symptoms. He was given return precautions. He expressed understanding and agreement. Discharge Plan Departure Patient Disposition: Home Clinical Impression: Thoracic back pain, Lumbar back pain, Rib pain on left side Instructions: DI for Low Back Pain, Thoracic Back Pain Activity Restrictions/Additional Instructions: Your x-rays today do not show any signs of fractures. I suspect that your symptoms will improve over the next couple days. Recommend that you try to stay as active as possible. Continue to take all of your medications as directed. Contact your primary doctor for follow-up. Prescriptions: No Action oxycodone 5 mg tablet 10 mg PO Q6H PRN (Reason: pain) Qty: 30 0RF Rx Instructions: take 1-2 tabs every 4-6 hours as needed for post operative pain. ondansetron 4 mg tablet,disintegrating 4 mg PO Q6H PRN (Reason: nausea) simethicone [Gas Relief (simethicone)] 80 mg tablet,chewable 80 mg PO TID-QID PRN (Reason: Acid Reflux) spironolactone 100 mg tablet 100 mg PO DAILY PRN (Reason: Edema) furosemide 40 mg tablet 40 mg PO DAILY PRN (Reason: Edema) famotidine 20 mg tablet 20 mg PO BID PRN (Reason: Heartburn) acetaminophen [Tylenol Extra Strength] 500 mg tablet 1,000 mg PO Q6H Qty: 20 0RF Rx Instructions: available over the counter, but I do recommend taking this dose around the clock for the first week. docusate sodium [Colace] 100 mg capsule 100 mg PO BID Qty: 20 0RF Rx Instructions: Take while taking oxycodone for pain to prevent constipation. If you are constipated you may take Miralax or call [facility] for advice. Referrals: Vitor Maravilla MD [Primary Care Provider] - Stand Alone Forms: Patient Portal/API
[2023-04-25] MEDS: HYDROCODONE/ACET 5/325 PREPACK 1 BOTTLE MISC (05:09)
[2023-04-25 05:15] VITALS: BP 114/78; PULSE 68; RESP 16; O2SAT 97
== END 2023-04-25 05:15 | disposition home or self-care (01) ==
PROVIDERS: Emergency Provider Emergency Medicine; PCP Internal Medicine
DX: M54.6 Pain in thoracic spine (principal); M54.50 Low back pain, unspecified; R07.81 Pleurodynia; W18.30XA Fall on same level, unspecified, initial encounter
CPT/HCPCS: 71101; 72072; 72100; 99283

== ENCOUNTER → 2023-05-29 16:44 | Outpatient (CLI) | payer MEDICARE, MEDICAID, SELFPAY ==
[2018-08-01 09:00] VITALS: PULSE 43; RESP 16; O2SAT 96
[2021-09-07 13:52] VITALS: BMI 34.2
[2023-05-29 18:21] LABS: Hematocrit 50.2 % (41-53); Hemoglobin 17.6 g/dL (13.5-17.5); Mean Corpuscular HGB Conc 34.9 % (30-36); Mean Corpuscular Hemoglobin 31.4 PG (26-34); Platelet Count 77 X10^3/uL (150-400); Red Blood Cell Count 5.58 X10^6/uL (4.5-5.9); Red Cell Distribution Width 13.8 % (11.6-14.8); White Blood Cell Count 8.5 X10^3/uL (4.5-11.0)
[2023-05-29 18:26] LABS: INR 1.1 (0.9-1.3); Prothrombin Time 12.2 SECONDS (10.1-12.7)
[2023-05-29 18:29] LABS: PTT Partial Thromboplastin Tim 32 SECONDS (26-36)
[2023-05-29 18:34] LABS: Alanine Aminotransferase 39 IU/L (<50); Albumin 4.1 g/dL (3.5-5.0); Albumin Globulin Ratio 1.2 (1.0-2.8); Alkaline Phosphatase 131 U/L (38-126); Aspartate Aminotransferase 43 IU/L (17-59); BUN Creatinine Ratio 15.9 (6-22); Blood Urea Nitrogen 17 mg/dL (9-20); Calcium 8.9 mg/dL (8.4-10.2); Carbon Dioxide 25 mmol/L (22-32); Chloride 105 mmol/L (98-107); Cholesterol 117 mg/dL (140-199); Estimated Glomerular Filt Rate > 60 mL/min (>60); Globulin 3.5 g/dL (1.7-4.1); Glucose 94 mg/dL (80-110); HDL Cholesterol 46 mg/dL (40-60); HEMOLYSIS 17 (0-50); LDL Cholesterol Calculated 53 mg/dL (<100); Potassium 4.3 mmol/L (3.4-5.1); Sodium 136 mmol/L (137-145); Total Protein 7.6 g/dL (6.3-8.2); Triglycerides 91 mg/dL (35-150)
[2023-05-29 18:48] LABS: Add Manual Diff / Slide Review YES
[2023-05-29 18:51] LABS: Neutrophils Absolute Manual 6205 /uL (3000-5900); Total Cells Counted 100
[2023-05-29 18:52] LABS: Platelet Estimate Decreased on smear; RBC Morphology Normal Morphology
[2023-05-29 19:03] LABS: Prostate Specific Antigen 0.189 ng/mL (0.10-4.00)
[2023-05-29 19:15] LABS: TSH w/ Reflex to FT4 2.75 uIU/mL (0.47-4.68)
[2023-05-29 19:42] LABS: Hep C Virus Ab w/Reflex Quant NEGATIVE s/c (NEGATIVE)
== END ==
PROVIDERS: PCP Nurse Practitioner Family; Referring Provider Nurse Practitioner Family; Visit Provider Nurse Practitioner Family
DX: E78.5 Hyperlipidemia, unspecified (principal); I10 Essential (primary) hypertension; N18.5 Chronic kidney disease, stage 5; N18.9 Chronic kidney disease, unspecified; I85.01 Esophageal varices with bleeding; R39.12 Poor urinary stream; Z11.59 Encounter for screening for other viral diseases
CPT/HCPCS: 80053; 80061; 84153; 84443; 85007; 85025; 85610; 85730; 86803

== ENCOUNTER 2023-07-08 16:26 | Emergency (ER) | payer MEDICARE, MEDICAID, SELFPAY ==
[2018-08-01 09:00] VITALS: PULSE 43; RESP 16; O2SAT 96
[2021-09-07 13:52] VITALS: BMI 34.2
[2023-07-08 16:44] VITALS: BP 138/87; PULSE 85; RESP 18; TEMP 37; O2SAT 98; BMI 33.5
[2023-07-08 18:03] LABS: Add Manual Diff / Slide Review NO; Basophils Absolute Auto 100 /uL (0-100); Basophils Percent Auto 0.8 % (0-2); Eosinophils Absolute Auto 200 /uL (0-450); Eosinophils Percent Auto 2.9 % (2-4); Hematocrit 48.2 % (41-53); Hemoglobin 16.8 g/dL (13.5-17.5); Lymphocytes Absolute Auto 1600 /uL (1100-4500); Mean Corpuscular Hemoglobin 31.5 PG (26-34); Mean Corpuscular Volume 90.1 fL (80-100); Monocytes Absolute Auto 800 /uL (0-900); Monocytes Percent Auto 9.2 % (3-14); Neutrophils Absolute Auto 5700 /uL (1500-7000); Neutrophils Percent Auto 68.1 % (50-75); Platelet Count 60 X10^3/uL (150-400); Red Blood Cell Count 5.35 X10^6/uL (4.5-5.9); Red Cell Distribution Width 13.6 % (11.6-14.8); White Blood Cell Count 8.3 X10^3/uL (4.5-11.0)
[2023-07-08 18:09] LABS: Alanine Aminotransferase 27 IU/L (<50); Albumin Globulin Ratio 1.2 (1.0-2.8); Alkaline Phosphatase 85 U/L (38-126); Aspartate Aminotransferase 29 IU/L (17-59); BUN Creatinine Ratio 18.8 (6-22); Bilirubin Total 0.9 mg/dL (0.2-1.3); Blood Urea Nitrogen 21 mg/dL (9-20); Calcium 8.8 mg/dL (8.4-10.2); Carbon Dioxide 25 mmol/L (22-32); Chloride 105 mmol/L (98-107); Estimated Glomerular Filt Rate > 60 mL/min (>60); Globulin 3.4 g/dL (1.7-4.1); Glucose 92 mg/dL (80-110); Lipase 123 U/L (23-300); Potassium 4.3 mmol/L (3.4-5.1); Sodium 137 mmol/L (137-145); Total Protein 7.4 g/dL (6.3-8.2)
[2023-07-08 18:18] LABS: HEMOLYSIS 57 (0-50)
--- NOTE | 2023-07-08 18:39 | ED.ABDPAIN ---
HPI - Abdominal Pain General Chief Complaint: Abdominal Pain Stated Complaint: Stomach pain Time Seen by Provider: 07/08/23 16:29 Source: patient Mode of arrival: Ambulatory Limitations: no limitations History of Present Illness HPI narrative: 63-year-old male with history of prior atlantooccipital injury, cervical fusion, cholecystectomy, hernia Blanche fundoplication and known cirrhosis with variceal banding on 06/28/2023 presents with epigastric abdominal pain that persisted for about 3 days after his banding he states it then improved but he is since noticed it there is an area that gets very hard across the upper abdomen particularly when he stands up or eats. He states it gets better when he lays back. He states sort of pushes out but is a large area. He denies fevers or chills. He states he got sweaty here in the ER but not before. He denies any chest pain or pressure, no shortness breath. He states pain does not radiate elsewhere. States it was actually feeling better on his follow-up visit last . He states it is worsened today in particular. States he is stooling regularly with no diarrhea or constipation, no black or bloody stools. He is had some mild nausea but no vomiting. He states he had apple cinnamon pancakes today. Patient states he has no liver issues he restarted his vitamin-B 12. States no other new medications. He is following with Gastroenterology at [facility] and states his banding was planned outpatient procedure. Uses tobacco denies EtOH or illicit. Related Data Home Medications Medication Instructions Recorded Confirmed famotidine 20 mg tablet 20 mg PO BID PRN Heartburn 07/12/22 08/16/22 furosemide 40 mg tablet 40 mg PO DAILY PRN Edema 07/12/22 08/16/22 ondansetron 4 mg disintegrating 4 mg PO Q6H PRN nausea 07/12/22 08/16/22 tablet simethicone 80 mg chewable tablet 80 mg PO TID-QID PRN Acid Reflux 07/12/22 08/16/22 (Gas Relief (simethicone)) spironolactone 100 mg tablet 100 mg PO DAILY PRN Edema 07/12/22 08/16/22 Previous Rx's Medication Instructions Recorded acetaminophen 500 mg tablet 1,000 mg PO Q6H #20 tabs 08/02/22 (Tylenol Extra Strength) docusate sodium 100 mg capsule 100 mg PO BID #20 caps 08/02/22 (Colace) oxycodone 5 mg tablet 10 mg PO Q6H PRN pain #30 tabs 08/16/22 sucralfate 1 gram tablet (Carafate) 1 g PO QACHS #40 tabs 07/08/23 Allergies Allergy/AdvReac Type Severity Reaction Status Date / Time lisinopril Allergy Severe Swelling Verified 07/08/23 16:44 of Lip/Tongue/Throat citalopram [CITALOPRAM] Allergy Unknown SEIZURES Verified 07/08/23 16:44 bupropion [From Aplenzin] AdvReac Nausea Verified 07/08/23 16:44 fluoxetine AdvReac Nausea Verified 07/08/23 16:44 Review of Systems Review of Systems ROS Unobtainable: All systems reviewed & are unremarkable except as noted in HPI and below Patient History Medical History Alcoholism in remission Cervical stenosis of spine Chronic thoracic spine pain Dyspepsia History of rib fracture History of stroke Hx of angioedema Hypertension Injury of hip, right Intermittent lightheadedness Male pelvic pain Other congenital malformation of penis Pain in male perineum Surgical History History of eye surgery History of Blanche fundoplication (08/2008) History of splenectomy History of surgery (05/2006) Hx laparoscopic cholecystectomy S/P cholecystectomy (07/2021) Status post cervical spinal fusion (07/2018) Family History Father Congestive heart failure Lymph edema Cancer Mother Perforated sigmoid colon Hypertension Brother Stroke Sister Hypertension Social History marital status: number of children: 4 household members: significant other and other Smoking Status: Current every day smoker alcohol intake: former caffeine: Yes Smoking Status: Current every day smoker tobacco type: cigarettes alcohol intake frequency: other Alcohol type: hard liquor Substance Use Type: does not use Exam Narrative Exam Narrative: GENERAL: Alert and oriented x three, well-appearing male in mild distress. HEENT: Head normocephalic, atraumatic, EOMI, pupils reactive, face symmetric, moist mucous membranes NECK: Supple, full range of motion CARDIOVASCULAR: Regular rate and rhythm without murmurs, rubs or gallops. RESPIRATORY: Breath sounds equal bilaterally, no wheezes rales or rhonchi. ABDOMEN: Soft, patient has some moderate epigastric/right upper quadrant tenderness. Normoactive bowel sounds all 4 quadrants. No guarding or rebound, rigidity, no mass. Patient does appear to have a little bit of a diastasis recti when he leans forward but I do not feel an easily palpable hernia. : No CVA tenderness EXTREMITIES: Normal range of motion, no clubbing or edema. Neurovascularly intact NEUROLOGICAL: Cranial nerves II through XII grossly intact. Moving all extremities. Normal gait. SKIN: Warm, dry, no petechiae, no rashes or lesions. Initial Vital Signs Initial Vital Signs: Vital Signs Temperature 98.6 F 07/08/23 16:44 Pulse Rate 85 07/08/23 16:44 Respiratory Rate 18 07/08/23 16:44 Blood Pressure 138/87 07/08/23 16:44 Pulse Oximetry 98 07/08/23 16:44 Oxygen Delivery Method Room Air 07/08/23 16:44 Course Orders Ordered: Discontinued Medications Hydromorphone HCl (Hydromorphone 0.5 Mg Inj) 0.5 mg IV NOW ONE Stop: 07/08/23 18:58 Last Admin: 07/08/23 19:32 Dose: 0.5 mg Documented By: SPF Hydromorphone HCl (Hydromorphone 0.5 Mg Inj) 0.5 mg IV NOW ONE Stop: 07/08/23 20:04 Last Admin: 07/08/23 20:09 Dose: 0.5 mg Documented By: Ondansetron HCl (Ondansetron 4 Mg Odt) 4 mg PO NOW PRN PRN Reason: Nausea And Vomiting Ondansetron HCl (Ondansetron 4 Mg/2 Ml Inj) 4 mg IV NOW PRN PRN Reason: Nausea And Vomiting Vital Signs Vital signs: Vital Signs - 8 hr 07/08/23 16:44 07/08/23 19:27 07/08/23 19:30 Temperature 98.6 F Pulse Rate 85 65 Respiratory Rate 18 Blood Pressure 138/87 114/78 Pulse Oximetry 98 94 Oxygen Delivery Method Room Air 07/08/23 19:30 07/08/23 20:00 07/08/23 20:00 Temperature Pulse Rate 66 64 Respiratory Rate Blood Pressure 121/77 Pulse Oximetry 95 95 Oxygen Delivery Method Room Air 07/08/23 20:12 07/08/23 20:12 Temperature Pulse Rate 68 Respiratory Rate Blood Pressure 140/90 Pulse Oximetry 95 Oxygen Delivery Method MDM - Abdominal Pain Lab Data 07/08/23 17:50 07/08/23 17:50 Labs: Lab Results 07/08/23 07/08/23 Range/Units 17:50 17:50 WBC 8.3 (4.5-11.0) X10^3/uL RBC 5.35 (4.5-5.9) X10^6/uL Hgb 16.8 (13.5-17.5) g/dL Hct 48.2 (41-53) % MCV 90.1 (80-100) fL MCH 31.5 (26-34) PG MCHC 35.0 (30-36) % RDW 13.6 (11.6-14.8) % Plt Count 60 L (150-400) X10^3/uL Neut % (Auto) 68.1 (50-75) % Lymph % (Auto) 19.0 L (25-40) % Mason % (Auto) 9.2 (3-14) % Eos % (Auto) 2.9 (2-4) % Baso % (Auto) 0.8 (0-2) % Neut # (Auto) 5700 (0106-3653) /uL Lymph # (Auto) 1600 (6496-8211) /uL Mason # (Auto) 800 (0-900) /uL Eos # (Auto) 200 (0-450) /uL Baso # (Auto) 100 (0-100) /uL Sodium 137 (137-145) mmol/L Potassium 4.3 (3.4-5.1) mmol/L Chloride 105 (98-107) mmol/L Carbon Dioxide 25 (22-32) mmol/L BUN 21 H (9-20) mg/dL Creatinine 1.12 (0.66-1.25) mg/dL Estimated GFR > 60 (>60) mL/min BUN/Creatinine Ratio 18.8 (6-22) Glucose 92 (80-110) mg/dL Calcium 8.8 (8.4-10.2) mg/dL Total Bilirubin 0.9 (0.2-1.3) mg/dL AST 29 (17-59) IU/L ALT 27 (<50) IU/L Alkaline Phosphatase 85 (38-126) U/L Total Protein 7.4 (6.3-8.2) g/dL Albumin 4.0 (3.5-5.0) g/dL Globulin 3.4 (1.7-4.1) g/dL Albumin/Globulin Ratio 1.2 (1.0-2.8) Lipase 123 (23-300) U/L Point of care testing: Urine Dip Bedside Urine Glucose Negative Bedside Urine Bilirubin - Negative Bedside Urine Ketone - Negative Urine Specific [place] 1.010 Bedside Urine Occult Blood - Negative Bedside Urine pH 6.5 Bedside Urine Protein - Negative Bedside Urine Urobilinogen - Negative Bedside Urine Nitrite - Negative Bedside Urine Leukocytes +/- [address] scan - abdomen/pelvis: Radiologist's Impression: Close Abdomen/Pelvis CT (Signed) Candido Vega - 07/08/23 [place] [address] CT Scan Report Signed Patient: Elroy Larkin MR#: [id number] : 1960 Acct:[id number] Age/Sex: 63 / M Date of Service: 07/08/23 Loc: ED Accession Number: [id number] ?? Procedure: CT abdomen pelvis w con Ordering Provider: Poppy David D.O. PROCEDURE:? CT ABDOMEN PELVIS W CON ? INDICATIONS:? upper abd pain, RUQ/epigastric, gets hard ? TECHNIQUE:? After the administration of oral and IV contrast, axial sections were acquired from the lung bases to the pubic symphysis.? Coronal and sagittal reformats were performed.? For radiation dose reduction, the following was used:? automated exposure control, adjustment of mA and/or kV according to patient size. ? COMPARISON:? [facility], CT, CT ABDOMEN PELVIS WO CON, 04/03/2022, 15:29.? [facility], CT, CT ABDOMEN PELVIS W CON, 09/12/2021, 3:59. ? FINDINGS:? Image quality:? Excellent.? ? Lung bases:? Unremarkable.? ? Heart:? No significant findings. ? ? ABDOMEN: Liver:? Unremarkable.? ? Gallbladder:? Removed.? ? Biliary ducts:? Unremarkable.? ? Pancreas:? Unremarkable.? ? Spleen:? The spleen is enlarged, measuring 16.5 cm craniocaudal.? Chronic appearing calcification can be seen adjacent to the spleen.? Accessory splenules are again seen along the hilum of the primary spleen. Adrenal Glands:? Unremarkable.? ? Kidneys and Ureters:? Unremarkable.? ? ? Stomach and Bowel:? Stomach, small bowel loops, and colon are unremarkable.? Colonic diverticulosis is seen, without findings of active diverticulitis. Peritoneum:? No abnormal intraperitoneal fluid.? No free air.? ? Ventral Wall: ? No hernia.? Interval hernia repair. Abdominal Nodes:? No retroperitoneal or mesenteric adenopathy by size criteria.? Vessels:? Aorta and inferior vena cava are normal in size.? ? PELVIS: Pelvic Organs:? Unremarkable.? ? Bladder:? Unremarkable.? ? Pelvic Nodes: No enlarged lymph nodes.? Miscellaneous:? Mild bilateral fat containing inguinal hernias can be seen. ? Bones:? At least moderate lumbar spine degenerative change is seen. ? ? IMPRESSION:? No imaging explanation is found for this patient's presenting symptoms.? ? Cholecystectomy, without biliary dilatation. ? Additional findings:? Splenomegaly Accessory splenules Interval periumbilical hernia repair Diverticulosis, without active diverticulitis Mild bilateral fat containing inguinal hernias ? Dictated by: Candido Vega M.D. on 07/08/2023 at 18:46 ? ? Approved by: Candido Vega M.D. on 07/08/2023 at 18:49?? ECG Data Attestation: I personally reviewed and interpreted this ECG as follows: Prior ECG tracings: available for review Interpretation: Sinus rhythm rate of 63 MT 180 QRS 86 QTC 442. No acute ST changes appreciated patient has prior from 01/17/2023 which appears similar today. MDM Narrative Medical decision making narrative: This is a 63-year-old male with known cirrhosis and recent esophageal banding who presents with abdominal pain he had about 3 days immediately after banding which he stated improved and has since returned. He has not had any fevers or chills. He states it feels like his belly bulges out when he stands up or when he eats a large amount of food making it worse. Suspicious for possible hernia he does appear to have a diastasis recti on examination but does not have not easily palpable hernia. CT abdomen pelvis was obtained as he is had recent instrumentation. Labs show platelets of 60 fairly consistent with recent from May and January which are in the 60s and 70s normal white count, hemoglobin of 16, sodium is 137 potassium 4 3 BUN 21 with creatinine of 1.12 and normal bilirubin, LFTs and lipase. Urine shows leukocyte esterase but no other acute changes, patient does not have any urinary symptoms. Patient has refill reducible pain on examination more epic were right upper quadrant/epigastric. Imaging shows spleen is enlarged at 16.5 cm craniocaudad chronic appearing calcifications seen adjacent accessory splenules again seen along the hilum of the primary spleen mild bilateral fat containing inguinal hernias moderate lumbar spinal degeneration no other acute changes appreciated. Patient had splenomegaly noted on last abdominal CT in 2021 at that time was 13.3 cm. Discussed with patient he is aware of splenomegaly. He notes that food does definitely makes it worse he takes famotidine 40 mg daily, discussed adding Carafate. He notes that they did state that his bandage could have irritated some things. He is supposed to return either this Monday or next Monday for repeat scope to check his bands. 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 Patient states that pain medications were not very helpful he asked for an additional dose but states he feels comfortable returning home. He would like to try the Carafate. Discharge Plan Departure Patient Disposition: Home Clinical Impression: Abdominal pain, Splenomegaly Instructions: DI for Abdominal Pain-Adult Activity Restrictions/Additional Instructions: Please follow-up with your gastroenterology team to follow up this Monday for your banding recheck. You may try carafate prior to meals, 4 times daily. Let your sales agent pest control service know that this medication was added. Prescription sent to [facility] in [place]. Your imaging today did not show a clear cause for pain you do have an enlarged spleen this can cause pain but is typically more on the left side. Discussed with your sales agent pest control service sometimes if your spleen becomes too large some individuals require surgical intervention. Please return for new or worsening symptoms, persistent vomiting, black or bloody stools, lightheadedness or passing out, new chest pain or shortness of breath or other new or concerning changes. Prescriptions: New sucralfate [Carafate] 1 gram tablet 1 g PO QACHS Qty: 40 0RF No Action oxycodone 5 mg tablet 10 mg PO Q6H PRN (Reason: pain) Qty: 30 0RF Rx Instructions: take 1-2 tabs every 4-6 hours as needed for post operative pain. ondansetron 4 mg tablet,disintegrating 4 mg PO Q6H PRN (Reason: nausea) simethicone [Gas Relief (simethicone)] 80 mg tablet,chewable 80 mg PO TID-QID PRN (Reason: Acid Reflux) spironolactone 100 mg tablet 100 mg PO DAILY PRN (Reason: Edema) furosemide 40 mg tablet 40 mg PO DAILY PRN (Reason: Edema) famotidine 20 mg tablet 20 mg PO BID PRN (Reason: Heartburn) acetaminophen [Tylenol Extra Strength] 500 mg tablet 1,000 mg PO Q6H Qty: 20 0RF Rx Instructions: available over the counter, but I do recommend taking this dose around the clock for the first week. docusate sodium [Colace] 100 mg capsule 100 mg PO BID Qty: 20 0RF Rx Instructions: Take while taking oxycodone for pain to prevent constipation. If you are constipated you may take Miralax or call [facility] for advice. Referrals: Moriah Chen RN [Primary Care Provider] - Stand Alone Forms: Patient Portal/API
--- NOTE | 2023-07-08 18:54 | DI.CT.S_ITS ---
PROCEDURE: CT ABDOMEN PELVIS W CON INDICATIONS: upper abd pain, RUQ/epigastric, gets hard TECHNIQUE: After the administration of oral and IV contrast, axial sections were acquired from the lung bases to the pubic symphysis. Coronal and sagittal reformats were performed. For radiation dose reduction, the following was used: automated exposure control, adjustment of mA and/or kV according to patient size. COMPARISON: [facility], CT, CT ABDOMEN PELVIS WO CON, 04/03/2022, 15:29. [facility], CT, CT ABDOMEN PELVIS W CON, 09/12/2021, 3:59. FINDINGS: Image quality: Excellent. Lung bases: Unremarkable. Heart: No significant findings. ABDOMEN: Liver: Unremarkable. Gallbladder: Removed. Biliary ducts: Unremarkable. Pancreas: Unremarkable. Spleen: The spleen is enlarged, measuring 16.5 cm craniocaudal. Chronic appearing calcification can be seen adjacent to the spleen. Accessory splenules are again seen along the hilum of the primary spleen. Adrenal Glands: Unremarkable. Kidneys and Ureters: Unremarkable. Stomach and Bowel: Stomach, small bowel loops, and colon are unremarkable. Colonic diverticulosis is seen, without findings of active diverticulitis. Peritoneum: No abnormal intraperitoneal fluid. No free air. Ventral Wall: No hernia. Interval hernia repair. Abdominal Nodes: No retroperitoneal or mesenteric adenopathy by size criteria. Vessels: Aorta and inferior vena cava are normal in size. PELVIS: Pelvic Organs: Unremarkable. Bladder: Unremarkable. Pelvic Nodes: No enlarged lymph nodes. Miscellaneous: Mild bilateral fat containing inguinal hernias can be seen. Bones: At least moderate lumbar spine degenerative change is seen. IMPRESSION: No imaging explanation is found for this patient's presenting symptoms. Cholecystectomy, without biliary dilatation. Additional findings: Splenomegaly Accessory splenules Interval periumbilical hernia repair Diverticulosis, without active diverticulitis Mild bilateral fat containing inguinal hernias Dictated by: Candido Vega M.D. on 07/08/2023 at 18:46 Approved by: Candido Vega M.D. on 07/08/2023 at 18:49
[2023-07-08 19:27] VITALS: PULSE 65; O2SAT 94
[2023-07-08 19:30] VITALS: BP 114/78; PULSE 66; O2SAT 95
[2023-07-08] MEDS: HYDROMORPHONE 0.5 MG INJ IV ×2 (19:32→20:09)
[2023-07-08 20:00] VITALS: BP 121/77; PULSE 64; O2SAT 95
[2023-07-08 20:12] VITALS: BP 140/90; PULSE 68; O2SAT 95
== END 2023-07-08 20:22 | disposition home or self-care (01) ==
PROVIDERS: Emergency Medicine; Emergency Provider Emergency Medicine; PCP Nurse Practitioner Family
DX: R10.13 Epigastric pain (principal); R16.1 Splenomegaly, not elsewhere classified
CPT/HCPCS: 36415; 74177; 80053; 81003; 83690; 85025; 93005; 96374; 96375; 99284; J1170; Q9967

== ENCOUNTER 2023-08-09 15:43 | Emergency (ER) | payer MEDICARE, MEDICAID, SELFPAY ==
[2018-08-01 09:00] VITALS: PULSE 43; RESP 16; O2SAT 96
[2021-09-07 13:52] VITALS: BMI 34.2
[2023-08-09 15:55] VITALS: BP 136/64; PULSE 71; RESP 20; TEMP 36.6; O2SAT 96; BMI 32.2
--- NOTE | 2023-08-09 18:11 | PC.NURSE ---
Reports on Amoxicillin for bacterial sinus infection. Patient has had three doses. Reports bismark smell, pounding headache and tingling in his head Reports a generalized numbness around whole head. Reports goopy eyes have improved. Headache is severe. Reports generalized weakness and lightheaded all day.
--- NOTE | 2023-08-09 18:13 | PC.NURSE ---
Had normal dose of oxycodone at 11am.
--- NOTE | 2023-08-09 18:22 | ED.HA ---
HPI - Headache General Chief Complaint: Headache Stated Complaint: General Weakness Time Seen by Provider: 08/09/23 18:04 Source: patient Mode of arrival: EMS Limitations: no limitations History of Present Illness HPI Narrative: 63-year-old male who is here for evaluation of generalized weakness, weakness in his knees, tingling in his hands, tingling on his scalp and worsening sinus infection. His symptoms started several days ago. He had a telemedicine visit and has been on antibiotics since Monday. He states that his sinus congestion is not getting any better. Is also having some blurred vision, no chest pain. No shortness of breath. Related Data Home Medications Medication Instructions Recorded Confirmed famotidine 20 mg tablet 20 mg PO BID PRN Heartburn 07/12/22 08/16/22 furosemide 40 mg tablet 40 mg PO DAILY PRN Edema 07/12/22 08/16/22 ondansetron 4 mg disintegrating 4 mg PO Q6H PRN nausea 07/12/22 08/16/22 tablet simethicone 80 mg chewable tablet 80 mg PO TID-QID PRN Acid Reflux 07/12/22 08/16/22 (Gas Relief (simethicone)) spironolactone 100 mg tablet 100 mg PO DAILY PRN Edema 07/12/22 08/16/22 Previous Rx's Medication Instructions Recorded acetaminophen 500 mg tablet 1,000 mg (2 x 500 mg) PO Q6H #20 08/02/22 (Tylenol Extra Strength) tabs docusate sodium 100 mg capsule 100 mg PO BID #20 caps 08/02/22 (Colace) oxycodone 5 mg tablet 10 mg (2 x 5 mg) PO Q6H PRN pain 08/16/22 #30 tabs sucralfate 1 gram tablet (Carafate) 1 g PO QACHS #40 tabs 07/08/23 Allergies Allergy/AdvReac Type Severity Reaction Status Date / Time lisinopril Allergy Severe Swelling Verified 08/09/23 16:03 of Lip/Tongue/Throat citalopram [CITALOPRAM] Allergy Unknown SEIZURES Verified 08/09/23 16:03 bupropion [From Aplenzin] AdvReac Nausea Verified 08/09/23 16:03 fluoxetine AdvReac Nausea Verified 08/09/23 16:03 Review of Systems Review of Systems ROS Unobtainable: All systems reviewed & are unremarkable except as noted in HPI and below Patient History Medical History Pain in male perineum Male pelvic pain Other congenital malformation of penis Alcoholism in remission History of rib fracture Intermittent lightheadedness History of stroke Chronic thoracic spine pain Injury of hip, right Hx of angioedema Dyspepsia Hypertension Cervical stenosis of spine Surgical History History of eye surgery History of Blanche fundoplication (08/2008) History of splenectomy History of surgery (05/2006) Hx laparoscopic cholecystectomy S/P cholecystectomy (07/2021) Status post cervical spinal fusion (07/2018) Family History Father Congestive heart failure Lymph edema Cancer Mother Perforated sigmoid colon Hypertension Brother Stroke Sister Hypertension Social History marital status: number of children: 4 household members: significant other and other Smoking Status: Current every day smoker alcohol intake: former caffeine: Yes Smoking Status: Current every day smoker tobacco type: cigarettes alcohol intake frequency: other Alcohol type: hard liquor Substance Use Type: does not use Exam Initial Vital Signs Initial Vital Signs: Vital Signs Temperature 97.9 F 08/09/23 15:55 Pulse Rate 71 08/09/23 15:55 Respiratory Rate 20 08/09/23 15:55 Blood Pressure 136/64 08/09/23 15:55 Pulse Oximetry 96 08/09/23 15:55 Oxygen Delivery Method Room Air 08/09/23 15:55 Const General: cooperative, comfortable and No ill appearing [place] Head: normal to inspection and normocephalic Ears: TM's normal bilaterally Nose: external nose normal Mouth: oral mucosae normal Resp Effort & Inspection: normal respiratory effort Skin General: no rashes or lesions noted Neuro General: patient alert, patient awake, patient oriented x3 and moves all extremities Speech: speech normal Extrem General: capillary refill normal Scores GCS Alvin coma scale eye opening: Spontaneous Alvin coma scale verbal response: Orientated [place] coma scale motor response: Obey commands [place] coma scale total score: 15 Course Orders Ordered: ED Orders 08/09/23 18:15 Covid-19 + FLU A/B + RSV - PCR Stat 08/09/23 18:40 Basic Metabolic Panel Stat Complete Blood Count AUTO DIFF Stat Vital Signs Vital signs: Vital Signs - 8 hr 08/09/23 15:55 08/09/23 20:58 Temperature 97.9 F 98.1 F Pulse Rate 71 78 Respiratory Rate 20 20 Blood Pressure 136/64 135/89 Pulse Oximetry 96 97 Oxygen Delivery Method Room Air Room Air MDM - Headache Lab Data Attestation: I reviewed the patient's lab results. 08/09/23 18:40 08/09/23 18:40 Labs: Lab Results 08/09/23 08/09/23 Range/Units 18:15 18:40 WBC 8.3 (4.5-11.0) X10^3/uL RBC 5.23 (4.5-5.9) X10^6/uL Hgb 16.4 (13.5-17.5) g/dL Hct 47.6 (41-53) % MCV 91.0 (80-100) fL MCH 31.3 (26-34) PG MCHC 34.5 (30-36) % RDW 14.0 (11.6-14.8) % Plt Count 59 L (150-400) X10^3/uL Neut % (Auto) 72.5 (50-75) % Lymph % (Auto) 17.2 L (25-40) % [place] % (Auto) 7.8 (3-14) % Eos % (Auto) 1.8 L (2-4) % Baso % (Auto) 0.7 (0-2) % Neut # (Auto) 6000 (6121-1067) /uL Lymph # (Auto) 1400 (7187-6704) /uL [place] # (Auto) 600 (0-900) /uL Eos # (Auto) 200 (0-450) /uL Baso # (Auto) 100 (0-100) /uL Sodium 136 L (137-145) mmol/L Potassium 4.3 (3.4-5.1) mmol/L Chloride 106 (98-107) mmol/L Carbon Dioxide 23 (22-32) mmol/L BUN 15 (9-20) mg/dL Creatinine 1.07 (0.66-1.25) mg/dL Estimated GFR > 60 (>60) mL/min BUN/Creatinine Ratio 14.0 (6-22) Glucose 96 (80-110) mg/dL Calcium 8.9 (8.4-10.2) mg/dL SARS-CoV-2 (PCR) Negative (Negative) Influenza A (RT-PCR) Flu a negative (NEGATIVE) Influenza B (RT-PCR) Flu b negative (NEGATIVE) RSV (PCR) Negative (Negative) Urine Dip Bedside Urine Glucose Negative Bedside Urine Bilirubin - Negative Bedside Urine Ketone - Negative Urine Specific [place] 1.005 Bedside Urine Occult Blood - Negative Bedside Urine pH 6 Bedside Urine Protein - Negative Bedside Urine Urobilinogen - Negative Bedside Urine Nitrite - Negative Bedside Urine Leukocytes - Negative Esterase MDM Narrative Medical decision making narrative: Low suspicion for CVA. Low suspicion for TIA. No fevers. No indication to change his antibiotics. COVID and flu were negative. No indication for any radiologic studies. Provided reassurance to the patient. I suspect that his symptoms will improve over the next couple days. He was given return precautions. Discharge Plan Departure Patient Disposition: Home Clinical Impression: Sinus infection Instructions: DI for Sinusitis Activity Restrictions/Additional Instructions: Recommend that you continue to take all of your medications as directed to include the antibiotics. You can consider trying other decongestants such as Sudafed or Zyrtec. Contact your primary doctor for follow-up. Return to the emergency department for new symptoms. Prescriptions: No Action oxycodone 5 mg tablet 10 mg PO Q6H PRN (Reason: pain) Qty: 30 0RF Rx Instructions: take 1-2 tabs every 4-6 hours as needed for post operative pain. ondansetron 4 mg tablet,disintegrating 4 mg PO Q6H PRN (Reason: nausea) simethicone [Gas Relief (simethicone)] 80 mg tablet,chewable 80 mg PO TID-QID PRN (Reason: Acid Reflux) spironolactone 100 mg tablet 100 mg PO DAILY PRN (Reason: Edema) furosemide 40 mg tablet 40 mg PO DAILY PRN (Reason: Edema) famotidine 20 mg tablet 20 mg PO BID PRN (Reason: Heartburn) sucralfate [Carafate] 1 gram tablet 1 g PO QACHS Qty: 40 0RF acetaminophen [Tylenol Extra Strength] 500 mg tablet 1,000 mg PO Q6H Qty: 20 0RF Rx Instructions: available over the counter, but I do recommend taking this dose around the clock for the first week. docusate sodium [Colace] 100 mg capsule 100 mg PO BID Qty: 20 0RF Rx Instructions: Take while taking oxycodone for pain to prevent constipation. If you are constipated you may take Miralax or call [facility] for advice. Referrals: Moriah Chen RN [Primary Care Provider] - Stand Alone Forms: Patient Portal/API
[2023-08-09 19:08] LABS: Add Manual Diff / Slide Review NO; Basophils Absolute Auto 100 /uL (0-100); Basophils Percent Auto 0.7 % (0-2); Eosinophils Absolute Auto 200 /uL (0-450); Eosinophils Percent Auto 1.8 % (2-4); Hematocrit 47.6 % (41-53); Hemoglobin 16.4 g/dL (13.5-17.5); Lymphocytes Absolute Auto 1400 /uL (1100-4500); Lymphocytes Percent Auto 17.2 % (25-40); Mean Corpuscular HGB Conc 34.5 % (30-36); Mean Corpuscular Hemoglobin 31.3 PG (26-34); Monocytes Absolute Auto 600 /uL (0-900); Monocytes Percent Auto 7.8 % (3-14); Neutrophils Absolute Auto 6000 /uL (1500-7000); Neutrophils Percent Auto 72.5 % (50-75); Platelet Count 59 X10^3/uL (150-400); Red Blood Cell Count 5.23 X10^6/uL (4.5-5.9); White Blood Cell Count 8.3 X10^3/uL (4.5-11.0)
[2023-08-09 19:14] LABS: Blood Urea Nitrogen 15 mg/dL (9-20); Calcium 8.9 mg/dL (8.4-10.2); Carbon Dioxide 23 mmol/L (22-32); Chloride 106 mmol/L (98-107); Estimated Glomerular Filt Rate > 60 mL/min (>60); Glucose 96 mg/dL (80-110); HEMOLYSIS < 15 (0-50); Potassium 4.3 mmol/L (3.4-5.1); Sodium 136 mmol/L (137-145)
[2023-08-09 19:54] LABS: Influenza A - CEPHEID Flu A NEGATIVE (NEGATIVE); Influenza B - CEPHEID Flu B NEGATIVE (NEGATIVE); Respiratory Syncytial Virus Negative (Negative)
[2023-08-09 20:14] LABS: COVID-19 CEPHEID 4-PLEX PCR Negative (Negative)
[2023-08-09 20:58] VITALS: BP 135/89; PULSE 78; RESP 20; TEMP 36.7; O2SAT 97
== END 2023-08-09 21:08 | disposition home or self-care (01) ==
PROVIDERS: Emergency Provider Emergency Medicine; PCP Nurse Practitioner Family
DX: J32.9 Chronic sinusitis, unspecified (principal); Z20.822 Contact with and (suspected) exposure to COVID-19
CPT/HCPCS: 0241U; 36415; 80048; 81003; 85025; 99283

== ENCOUNTER 2023-09-12 13:27 | Emergency (ER) | payer MEDICARE, MEDICAID, SELFPAY ==
[2018-08-01 09:00] VITALS: PULSE 43; RESP 16; O2SAT 96
[2021-09-07 13:52] VITALS: BMI 34.2
[2023-09-12 13:33] VITALS: PULSE 67; O2SAT 96
[2023-09-12 13:36] VITALS: BP 159/99; PULSE 65; RESP 20; TEMP 36.9; O2SAT 96; BMI 33.5
--- NOTE | 2023-09-12 13:36 | DI.RAD.S_ITS ---
PROCEDURE: XR SOFT TISSUE NECK INDICATIONS: GLOBUS SENSATION TECHNIQUE: 2 views of the neck were acquired. COMPARISON: None. FINDINGS: Airway: The airway appears patent. Soft tissues: Prevertebral soft tissues are normal in thickness. The epiglottis and aryepiglottic folds appear normal. No soft tissue gas. Bones: Postoperative changes of posterior fusion. IMPRESSION: Postoperative changes of posterior fusion. The airway is patent. Dictated by: Brandon Lewis M.D. on 09/12/2023 at 14:02 Approved by: Brandon Lewis M.D. on 09/12/2023 at 14:03
--- NOTE | 2023-09-12 13:36 | DI.RAD.S_ITS ---
PROCEDURE: XR CHEST 1V INDICATIONS: CHEST TIGHTNESS TECHNIQUE: One view of the chest was acquired. COMPARISON: [facility], CR, XR CHEST 1V, 01/16/2023, 14:40. FINDINGS: Surgical changes and devices: None. Lungs and pleura: Lungs are clear. No pleural effusions or pneumothorax. Interstitial prominence is unchanged compared to the prior study and is likely chronic. Mediastinum: Mediastinal contours appear normal. Heart size is enlarged. Bones and chest wall: No suspicious bony lesions. Overlying soft tissues appear unremarkable. IMPRESSION: Stable chest x-ray with diffuse interstitial prominence. No acute cardiopulmonary abnormality is seen. Dictated by: Brandon Lewis M.D. on 09/12/2023 at 14:36 Approved by: Brandon Lewis M.D. on 09/12/2023 at 14:37
--- NOTE | 2023-09-12 13:37 | ED.GENADULT ---
HPI - General Adult General Chief complaint: Shortness of Breath/Dyspnea Stated complaint: Difficult to swallow no swelling new med(celecoxib Time Seen by Provider: 09/12/23 13:30 History of Present Illness HPI narrative: 63-year-old male with history of coronary artery disease, history of alcohol abuse, (last drink 3 years ago), presents by EMS from home for the sensation that it started swelling. He states that he started a new medication recently celecoxib and this morning when he woke up to drink his coffee he felt like his uvula was swollen and longer than usual so he called 911. EMS reports vital signs were stable EN route, however just prior to coming through the ambulance [place] he complained of chest tightness. Related Data Home Medications Medication Instructions Recorded Confirmed famotidine 20 mg tablet 20 mg PO BID PRN Heartburn 07/12/22 08/16/22 furosemide 40 mg tablet 40 mg PO DAILY PRN Edema 07/12/22 08/16/22 ondansetron 4 mg disintegrating 4 mg PO Q6H PRN nausea 07/12/22 08/16/22 tablet simethicone 80 mg chewable tablet 80 mg PO TID-QID PRN Acid Reflux 07/12/22 08/16/22 (Gas Relief (simethicone)) spironolactone 100 mg tablet 100 mg PO DAILY PRN Edema 07/12/22 08/16/22 Previous Rx's Medication Instructions Recorded acetaminophen 500 mg tablet 1,000 mg (2 x 500 mg) PO Q6H #20 08/02/22 (Tylenol Extra Strength) tabs docusate sodium 100 mg capsule 100 mg PO BID #20 caps 08/02/22 (Colace) oxycodone 5 mg tablet 10 mg (2 x 5 mg) PO Q6H PRN pain 08/16/22 #30 tabs sucralfate 1 gram tablet (Carafate) 1 g PO QACHS #40 tabs 07/08/23 Allergies Allergy/AdvReac Type Severity Reaction Status Date / Time lisinopril Allergy Severe Swelling Verified 08/09/23 16:03 of Lip/Tongue/Throat citalopram [CITALOPRAM] Allergy Unknown SEIZURES Verified 08/09/23 16:03 bupropion [From Aplenzin] AdvReac Nausea Verified 08/09/23 16:03 fluoxetine AdvReac Nausea Verified 08/09/23 16:03 Review of Systems Review of Systems Narrative: Negative except as noted above Patient History Medical History Pain in male perineum Male pelvic pain Other congenital malformation of penis Alcoholism in remission History of rib fracture Intermittent lightheadedness History of stroke Chronic thoracic spine pain Injury of hip, right Hx of angioedema Dyspepsia Hypertension Cervical stenosis of spine Surgical History History of eye surgery History of Blanche fundoplication (08/2008) History of splenectomy History of surgery (05/2006) Hx laparoscopic cholecystectomy S/P cholecystectomy (07/2021) Status post cervical spinal fusion (07/2018) Family History Father Congestive heart failure Lymph edema Cancer Mother Perforated sigmoid colon Hypertension Brother Stroke Sister Hypertension Social History marital status: number of children: 4 household members: significant other and other Smoking Status: Current every day smoker alcohol intake: former caffeine: Yes Smoking Status: Current every day smoker tobacco type: cigarettes alcohol intake frequency: other Alcohol type: hard liquor Substance Use Type: does not use Exam Initial Vital Signs Initial Vital Signs: Vital Signs Pulse Rate 67 09/12/23 13:33 Pulse Oximetry 96 09/12/23 13:33 Const: Awake, alert, no acute distress, nontoxic appearing Eyes: PERRL, EOMI, conjunctiva normal ENT: Atraumatic, dentition normal, mucous membranes moist, uvula midline (normal) Cardiac: regular rate, regular rhythm RESP: unlabored, clear bilaterally, no wheezing GI: Atraumatic, soft, nontender, nondistended, no rebound, no guarding MSK: Atraumatic, full range of motion, pulses equal Skin: Warm, Dry, intact, no rashes Neuro: AO x3, CN II-XII grossly intact, moves all extremities Psych: affect normal, mood normal, not suicidal, not homicidal Course Orders Ordered: Discontinued Medications Dexamethasone (Dexamethasone 10 Mg/Ml Vial) 10 mg PO NOW ONE Stop: 09/12/23 15:37 Last Admin: 09/12/23 15:44 Dose: 10 mg Documented By: TUSHAR Oxycodone HCl (Oxycodone Ir 5 Mg Tablet) 5 mg PO NOW ONE Stop: 09/12/23 15:37 Last Admin: 09/12/23 15:44 Dose: 5 mg Documented By: TUSHAR Vital Signs Vital signs: Vital Signs - 8 hr 09/12/23 13:33 09/12/23 13:36 09/12/23 13:42 Temperature 98.5 F Pulse Rate 67 65 Respiratory Rate 20 Blood Pressure 159/99 H 136/78 Pulse Oximetry 96 96 Oxygen Delivery Method Room Air 09/12/23 13:42 09/12/23 14:00 09/12/23 14:00 Temperature Pulse Rate 65 65 Respiratory Rate Blood Pressure 144/78 H Pulse Oximetry 95 95 Oxygen Delivery Method 09/12/23 15:00 Temperature Pulse Rate 64 Respiratory Rate Blood Pressure Pulse Oximetry 97 Oxygen Delivery Method Medical Decision Making Lab Data 09/12/23 13:45 09/12/23 13:45 Labs: Lab Results 09/12/23 Range/Units 13:45 WBC 10.6 (4.5-11.0) X10^3/uL RBC 5.17 (4.5-5.9) X10^6/uL Hgb 16.6 (13.5-17.5) g/dL Hct 47.8 (41-53) % MCV 92.4 (80-100) fL MCH 32.0 (26-34) PG MCHC 34.6 (30-36) % RDW 14.1 (11.6-14.8) % Plt Count 70 L (150-400) X10^3/uL Neut % (Auto) 78.5 H (50-75) % Lymph % (Auto) 12.4 L (25-40) % [place] % (Auto) 7.2 (3-14) % Eos % (Auto) 1.5 L (2-4) % Baso % (Auto) 0.4 (0-2) % Neut # (Auto) 8300 H (5776-0290) /uL Lymph # (Auto) 1300 (7530-4858) /uL [place] # (Auto) 800 (0-900) /uL Eos # (Auto) 200 (0-450) /uL Baso # (Auto) 0 (0-100) /uL Sodium 136 L (137-145) mmol/L Potassium 4.4 (3.4-5.1) mmol/L Chloride 107 (98-107) mmol/L Carbon Dioxide 24 (22-32) mmol/L BUN 15 (9-20) mg/dL Creatinine 0.93 (0.66-1.25) mg/dL Estimated GFR > 60 (>60) mL/min BUN/Creatinine Ratio 16.1 (6-22) Glucose 97 (80-110) mg/dL Calcium 8.8 (8.4-10.2) mg/dL Total Bilirubin 0.8 (0.2-1.3) mg/dL AST 44 (17-59) IU/L ALT 49 (<50) IU/L Alkaline Phosphatase 100 (38-126) U/L Troponin I < 0.012 (0.01-0.034) ng/mL Total Protein 7.2 (6.3-8.2) g/dL Albumin 4.0 (3.5-5.0) g/dL Globulin 3.2 (1.7-4.1) g/dL Albumin/Globulin Ratio 1.3 (1.0-2.8) MDM Narrative Medical decision making narrative: Patient presenting with the complaint that he feels like his uvula is swollen. On my exam the airway is patent, voices normal, there is a difficulty swallowing, no drooling, no pooling of secretions. Uvula is midline and a normal size. X-ray of the soft tissue neck is patent. Troponin, EKG, chest x-ray unremarkable. Patient given a dose of steroids and told to stop taking this medication if he believes it is causing a swollen throat. ED return precautions discussed at bedside. Patient expressed understanding of the plan and is in agreement at this time. All questions answered at the time of discharge. Discharge Plan Departure Patient Disposition: Home Clinical Impression: Sensation of swollen throat Instructions: DI for Adverse Drug Reaction -- Allergic Prescriptions: No Action oxycodone 5 mg tablet 10 mg PO Q6H PRN (Reason: pain) Qty: 30 0RF Rx Instructions: take 1-2 tabs every 4-6 hours as needed for post operative pain. ondansetron 4 mg tablet,disintegrating 4 mg PO Q6H PRN (Reason: nausea) simethicone [Gas Relief (simethicone)] 80 mg tablet,chewable 80 mg PO TID-QID PRN (Reason: Acid Reflux) spironolactone 100 mg tablet 100 mg PO DAILY PRN (Reason: Edema) furosemide 40 mg tablet 40 mg PO DAILY PRN (Reason: Edema) famotidine 20 mg tablet 20 mg PO BID PRN (Reason: Heartburn) sucralfate [Carafate] 1 gram tablet 1 g PO QACHS Qty: 40 0RF acetaminophen [Tylenol Extra Strength] 500 mg tablet 1,000 mg PO Q6H Qty: 20 0RF Rx Instructions: available over the counter, but I do recommend taking this dose around the clock for the first week. docusate sodium [Colace] 100 mg capsule 100 mg PO BID Qty: 20 0RF Rx Instructions: Take while taking oxycodone for pain to prevent constipation. If you are constipated you may take Miralax or call [facility] for advice. Referrals: Moriah Chen RN [Primary Care Provider] - Stand Alone Forms: Patient Portal/API
[2023-09-12 13:42] VITALS: BP 136/78; PULSE 65; O2SAT 95
[2023-09-12 13:55] LABS: Add Manual Diff / Slide Review NO; Basophils Absolute Auto 0 /uL (0-100); Basophils Percent Auto 0.4 % (0-2); Eosinophils Absolute Auto 200 /uL (0-450); Eosinophils Percent Auto 1.5 % (2-4); Hematocrit 47.8 % (41-53); Hemoglobin 16.6 g/dL (13.5-17.5); Lymphocytes Absolute Auto 1300 /uL (1100-4500); Lymphocytes Percent Auto 12.4 % (25-40); Mean Corpuscular HGB Conc 34.6 % (30-36); Mean Corpuscular Volume 92.4 fL (80-100); Monocytes Absolute Auto 800 /uL (0-900); Monocytes Percent Auto 7.2 % (3-14); Neutrophils Absolute Auto 8300 /uL (1500-7000); Neutrophils Percent Auto 78.5 % (50-75); Platelet Count 70 X10^3/uL (150-400); Red Blood Cell Count 5.17 X10^6/uL (4.5-5.9); Red Cell Distribution Width 14.1 % (11.6-14.8); White Blood Cell Count 10.6 X10^3/uL (4.5-11.0)
[2023-09-12 14:00] VITALS: BP 144/78; PULSE 65; O2SAT 95
[2023-09-12 14:16] LABS: Alanine Aminotransferase 49 IU/L (<50); Albumin Globulin Ratio 1.3 (1.0-2.8); Alkaline Phosphatase 100 U/L (38-126); Aspartate Aminotransferase 44 IU/L (17-59); BUN Creatinine Ratio 16.1 (6-22); Bilirubin Total 0.8 mg/dL (0.2-1.3); Blood Urea Nitrogen 15 mg/dL (9-20); Calcium 8.8 mg/dL (8.4-10.2); Carbon Dioxide 24 mmol/L (22-32); Chloride 107 mmol/L (98-107); Estimated Glomerular Filt Rate > 60 mL/min (>60); Globulin 3.2 g/dL (1.7-4.1); Glucose 97 mg/dL (80-110); HEMOLYSIS 27 (0-50); Potassium 4.4 mmol/L (3.4-5.1); Sodium 136 mmol/L (137-145); Total Protein 7.2 g/dL (6.3-8.2)
[2023-09-12 14:26] LABS: Troponin I < 0.012 ng/mL (0.01-0.034)
[2023-09-12 15:00] VITALS: PULSE 64; O2SAT 97
[2023-09-12] MEDS: OXYCODONE IR 5 MG TABLET PO (15:44)
[2023-09-12] MEDS: DEXAMETHASONE 10 MG/ML VIAL PO (15:44)
== END 2023-09-12 15:50 | disposition home or self-care (01) ==
PROVIDERS: Emergency Provider Emergency Medicine; PCP Nurse Practitioner Family
DX: R09.89 Other specified symptoms and signs involving the circulatory and respiratory systems (principal); I10 Essential (primary) hypertension; F17.210 Nicotine dependence, cigarettes, uncomplicated
CPT/HCPCS: 70360; 71045; 80053; 84484; 85025; 93005; 99283; 99284; J1100

== ENCOUNTER → 2025-02-11 13:14 | Outpatient (CLI) | payer MEDICARE, MEDICAID, SELFPAY ==
[2018-08-01 09:00] VITALS: PULSE 43; RESP 16; O2SAT 96
[2021-09-07 13:52] VITALS: BMI 34.2
[2025-02-11 13:49] LABS: Add Manual Diff / Slide Review NO; Basophils Absolute Auto 0 /uL (0-100); Basophils Percent Auto 0.3 % (0-2); Eosinophils Absolute Auto 200 /uL (0-450); Eosinophils Percent Auto 2.9 % (2-4); Hematocrit 48.5 % (41-53); Hemoglobin 17.2 g/dL (13.5-17.5); Lymphocytes Absolute Auto 1100 /uL (1100-4500); Lymphocytes Percent Auto 12.3 % (25-40); Mean Corpuscular HGB Conc 35.5 % (30-36); Mean Corpuscular Hemoglobin 33.1 PG (26-34); Mean Corpuscular Volume 93.3 fL (80-100); Monocytes Absolute Auto 500 /uL (0-900); Monocytes Percent Auto 5.2 % (3-14); Neutrophils Absolute Auto 6900 /uL (1500-7000); Neutrophils Percent Auto 79.3 % (50-75); Platelet Count 64 X10^3/uL (150-400); Red Cell Distribution Width 13.4 % (11.6-14.8); White Blood Cell Count 8.7 X10^3/uL (4.5-11.0)
[2025-02-11 14:02] LABS: Hemoglobin A1C% w Est Avg Glu 4.7 % (4.0-6.0)
[2025-02-11 14:09] LABS: Alanine Aminotransferase 28 IU/L (<50); Albumin 4.2 g/dL (3.5-5.0); Albumin Globulin Ratio 1.6 (1.0-2.8); Alkaline Phosphatase 75 U/L (38-126); Aspartate Aminotransferase 31 IU/L (17-59); Bilirubin Total 1.2 mg/dL (0.2-1.3); Blood Urea Nitrogen 16 mg/dL (9-20); Calcium 8.9 mg/dL (8.4-10.2); Carbon Dioxide 22 mmol/L (22-32); Chloride 106 mmol/L (98-107); Cholesterol 88 mg/dL (140-199); Estimated Glomerular Filt Rate > 60 mL/min (>60); Globulin 2.7 g/dL (1.7-4.1); Glucose 137 mg/dL (70-99); HDL Cholesterol 37 mg/dL (40-60); HEMOLYSIS 27 (0-50); LDL Cholesterol Calculated 18 mg/dL (<100); Potassium 4.5 mmol/L (3.4-5.1); Sodium 137 mmol/L (137-145); Total Protein 6.9 g/dL (6.3-8.2); Triglycerides 163 mg/dL (35-150)
[2025-02-11 14:39] LABS: Prostate Specific Antigen 0.174 ng/mL (0.10-4.00)
== END ==
PROVIDERS: Referring Provider Physician Assistant; Visit Provider Physician Assistant
DX: M54.9 Dorsalgia, unspecified (principal); Z13.6 Encounter for screening for cardiovascular disorders; Z12.5 Encounter for screening for malignant neoplasm of prostate; G89.29 Other chronic pain; K70.31 Alcoholic cirrhosis of liver with ascites
CPT/HCPCS: 36415; 80053; 80061; 83036; 84153; 85025; G0103

== ENCOUNTER → 2025-02-18 14:44 | Outpatient (CLI) | payer MEDICARE, MEDICAID, SELFPAY ==
[2018-08-01 09:00] VITALS: PULSE 43; RESP 16; O2SAT 96
[2021-09-07 13:52] VITALS: BMI 34.2
[2025-02-18 15:43] LABS: UR Morphine/Opiate cutoff 300 Negative (Negative); Ur Creatinine Normal (Normal); Ur Specific Gravity Normal (Normal); Urine Amphetamines Negative (Negative); Urine Barbiturates Negative (Negative); Urine Benzodiazepines Negative (Negative); Urine Cocaine Negative (Negative); Urine MDMA Negative (Negative); Urine Methadone Negative (Negative); Urine Methamphetamines Negative (Negative); Urine Oxycodone Positive (Negative); Urine Phencyclidine Negative (Negative); Urine Tetrahydrocannabinol Negative (Negative); Urine Tricyclic Antidepressant Negative (Negative); Urine pH Normal (Normal)
== END ==
PROVIDERS: PCP Physician Assistant; Referring Provider Physician Assistant; Visit Provider Physician Assistant
DX: M54.9 Dorsalgia, unspecified (principal); G89.29 Other chronic pain
CPT/HCPCS: 80305